=== PATIENT | female | born 1945 | race Caucasian/White ===

== ENCOUNTER 2017-07-12 21:09 | Emergency (ER) | payer OTHER, BC ==
--- OUTSIDE RECORDS SUMMARY | 2017-07-12 21:12 | XMS REPORT | Clinical Summary ---
:[address] [facility] Address [address] [place] [address] Phone Care Team Providers Name Role Phone Unavailable Primary Care Provider Unavailable Allergies Active Allergy Reactions Severity Noted Date Comments Butorphanol Tartrate Anaphylaxis High 06/09/2013 Gabapentin Other (See Comments) 01/03/2015 disorientation Nabumetone Nausea Only 01/03/2015 Moxifloxacin Nausea Only Low 06/10/2013 Tolterodine Nausea Only Low 06/10/2013 Doxycycline Hyclate Other (See Comments) Low 06/10/2013 Abdominal pain Erythromycin Nausea Only Low 06/10/2013 Levofloxacin Nausea Only Low 06/10/2013 Glycopyrrolate Nausea Only Low 06/10/2013 Current Medications Prescription Sig. Disp. Refills Start Date End Date Status esomeprazole (NEXIUM) 40 Take 40 mg by Active MG capsule mouth daily. sucralfate (CARAFATE) 1 g Take 1 g by Active tablet mouth as needed . HYDROcodone-acetaminophen Take 1 tablet Active (NORCO 5-325) 5-325 mg by mouth per tablet every 6 (six) hours as needed. hydrochlorothiazide Take 25 mg by Active (HYDRODIURIL) 25 MG mouth daily. tablet nitroglycerin (NITROSTAT) Place 0.4 mg Active 0.4 MG SL tablet under the tongue every 5 (five) minutes as needed. fluticasone (FLONASE) 50 1 spray by Active mcg/actuation nasal spray Nasal route daily. cetirizine (ZYRTEC) 10 MG Take 10 mg by Active tablet mouth daily. atenolol (TENORMIN) 50 MG Take 25 mg by Active tablet mouth daily. clidinium-chlordiazepoxid Take 1 Active e (LIBRAX) 5-2.5 mg per capsule by capsule mouth 2 (two) times daily. megestrol (MEGACE) 400 Take 10 mLs 240 mL 0 12/08/2016 12/08/2017 Active mg/10 mL (10 mL) (400 mg suspension total) by mouth 2 (two) times daily. senna (SENOKOT) 8.6 mg Take 1 tablet 0 12/08/2016 12/08/2017 Active tablet (8.6 mg total) by mouth every night as needed for Constipation. morphine (MS CONTIN) 30 Take 1 tablet 60 tablet 0 12/09/2016 01/08/2017 MG 12 hr tablet (30 mg total) by mouth 2 (two) times daily for 30 days. Max Daily Amount: 60 mg oxyCODONE-acetaminophen Take 1 tablet 30 tablet 0 12/09/2016 12/19/2016 (PERCOCET) 10-325 mg per by mouth tablet every 4 (four) hours as needed for up to 10 days. Max Daily Amount: 6 tablets Active Problems Problem Noted Date Fracture of lumbar spine ([facility]) 11/29/2016 Protein-calorie malnutrition, severe ([facility]) 11/29/2016 Acute low back pain 11/29/2016 Physical deconditioning 11/29/2016 Chest pain 11/29/2016 Hypertension Overview: bp controlled with medication x 3 yrs Encounters Date Type Specialty Care Team Description 03/14/2017 Outside Orders Poli Pate Loss of weight MD Annette (Primary Dx);Abdominal pain, epigastric 12/06/2016 Procedure Pass 12/06/2016 Surgery Virtual, Surgeon PROCEDURE DONE OUTSIDE OR 12/05/2016 Anesthesia Event Mayi Baptiste MD 11/30/2016 Orders Only General Internal Medicine 11/29/2016 - Hospital Encounter General Internal RichardRinku Closed fracture of 12/09/2016 Medicine MD Kylie lumbar vertebra, Jo, unspecified MD Heike fracture [place], morphology, MD Brown unspecified lumbar Dayna Steward MD vertebral level, initial encounter ([facility]);Essential hypertension;Chroni c bilateral low back pain with right-sided sciatica;Chest pain, unspecified type after 07/11/2016 Social History Tobacco Use Types Packs/Day Years Used Date Former Smoker Alcohol Use Drinks/Week oz/Week Comments No Sex Assigned at Date Recorded Not on file Last Filed Vital Signs Vital Sign Reading Time Taken Blood Pressure 130/69 12/09/2016 11:08 AM CDT Pulse 84 12/09/2016 11:08 AM CDT Temperature 37.1 C (98.7 F) 12/09/2016 11:08 AM CDT Respiratory Rate 18 12/09/2016 11:08 AM CDT Oxygen Saturation 96% 12/09/2016 11:08 AM CDT Inhaled Oxygen Concentration - - Weight 57.2 kg (126 lb) 12/03/2016 9:00 AM CDT Height 152.4 cm (5') 11/29/2016 4:00 AM CDT Body Mass Index 24.61 12/03/2016 9:00 AM CDT Plan of Treatment Not on file Procedures Procedure Name Priority Date/Time Associated Diagnosis Comments PROCEDURE DONE OUTSIDE 12/06/2016 3:00 PM Compression fracture of OR CDT L4 lumbar vertebra, closed, initial encounter ([facility]) Special Needs (DR DOMINIQUE)(DOUG) after 07/11/2016 Results PERIPHERAL VASCULAR REPORT - SCAN (01/01/2017 12:00 PM)ECHOCARDIOGRAM REPORT - SCAN (01/01/2017 12:00 PM)RHYTHM STRIP - SCAN (12/10/2016 12:50 PM)BUN and Creatinine (12/08/2016 4:54 AM) Component Value Ref Range BUN 14 7 - 21 mg/dL Creatinine 0.58 0.57 - 1.25 mg/dL EGFR 102Comment: ESTIMATED GFR IS NOT ACCURATE mL/min/1.73 sq m CREATININE CLEARANCE IN PREDICTING GLOMERULAR FILTRATION RATE. ESTIMATED GFR IS NOT APPLICABLE FOR DIALYSIS PATIENTS. Specimen Performing Laboratory Blood [facility] [address] [address] CBC (Hemogram only) (12/08/2016 4:54 AM) Component Value Ref Range WBC 9.9 3.5 - 10.5 K/L RBC 3.95 3.93 - 5.22 M/L Hemoglobin 11.9 11.2 - 15.7 GM/DL Hematocrit 36.8 34.1 - 44.9 % MCV 93.2 79.4 - 94.8 fL MCH 30.1 25.6 - 32.2 pg MCHC 32.3 32.2 - 35.5 GM/DL RDW 13.5 11.7 - 14.4 % Platelets 282 150 - 450 K/CU MM MPV 10.4 9.4 - 12.3 fL nRBC 0 0 - 0 /100 WBC Specimen Performing Laboratory Blood [facility] [address] [address] IR kyphoplasty lumbar (12/06/2016 6:30 PM) Specimen Performing Laboratory [facility] Narrative FINAL REPORT HISTORY: L4 and L5 wedge vertebral compression fractures and severe lower back pain despite conservative therapy. PROCEDURE: Following informed written consent, general anesthesia was performed by the anesthesiology service and the patient was placed in a prone position on the angiographic table. The lower back was prepped and draped in the usual sterile manner. 2% lidocaine was given locally for anesthesia. Using a bilateral L4 and L5 approach and fluoroscopic guidance, the access needles were placed into the L4 and L5 vertebral bodies. Tracts were drilled through each cannula into the L4 and L5 vertebral bodies. Vertebral augmentation balloons were placed through the access cannulas and inflated bilaterally. The balloons were deflated, removed and a total of four cc of methyl methacrylate was infused into the L4 vertebral body under constant fluoroscopic visualization. A total of 6 mL of methyl methacrylate was infused into the L5 vertebral body under constant fluoroscopic guidance. The cannulas were then removed and the access sites closed with Steri-Strips. Sterile bandages were applied and the patient was transferred from the department in stable condition. There were no immediate complications. FINDINGS: Images obtained during the procedure show the access needles, cannulas and balloons in expected positions within the L4 and L5 vertebral bodies. Following methacrylate infusion, adequate distribution is seen within the L4 and L5 vertebral bodies without extravasation. IMPRESSION: 1. Technically successful L4 and L5 percutaneous vertebral augmentation. No immediate complications. Total flouroscopy time: 9.7 mins Estimated dose reported as (Ka,r): 619 mGy Signed: Driss Dominique MD Report Verified Date/Time:12/11/2016 08:42:31 Reading Location: [place] [address] Angio Body Reading Room Procedure Note Interface, External Ris In - 12/11/2016 8:44 AM CDT FINAL REPORT HISTORY: L4 and L5 wedge vertebral compression fractures and severe lower back pain despite conservative therapy. PROCEDURE: Following informed written consent, general anesthesia was performed by the anesthesiology service and the patient was placed in a prone position on the angiographic table. The lower back was prepped and draped in the usual sterile manner. 2% lidocaine was given locally for anesthesia. Using a bilateral L4 and L5 approach and fluoroscopic guidance, the access needles were placed into the L4 and L5 vertebral bodies. Tracts were drilled through each cannula into the L4 and L5 vertebral bodies. Vertebral augmentation balloons were placed through the access cannulas and inflated bilaterally. The balloons were deflated, removed and a total of four cc of methyl methacrylate was infused into the L4 vertebral body under constant fluoroscopic visualization. A total of 6 mL of methyl methacrylate was infused into the L5 vertebral body under constant fluoroscopic guidance. The cannulas were then removed and the access sites closed with Steri-Strips. Sterile bandages were applied and the patient was transferred from the department in stable condition. There were no immediate complications. FINDINGS: Images obtained during the procedure show the access needles, cannulas and balloons in expected positions within the L4 and L5 vertebral bodies. Following methacrylate infusion, adequate distribution is seen within the L4 and L5 vertebral bodies without extravasation. IMPRESSION: 1. Technically successful L4 and L5 percutaneous vertebral augmentation. No immediate complications. Total flouroscopy time: 9.7 mins Estimated dose reported as (Ka,r): 619 mGy Signed: Driss Dominique MD Report Verified Date/Time: 12/11/2016 08:42:31 Reading Location: [place] [address] Angio Body Reading Room with platelet count + automated diff (12/06/2016 5:37 AM)Only the most recent of4 resultswithin the time period is included. Component Value Ref Range WBC 9.5 3.5 - 10.5 K/L RBC 4.03 3.93 - 5.22 M/L Hemoglobin 12.3 11.2 - 15.7 GM/DL Hematocrit 37.0 34.1 - 44.9 % MCV 91.8 79.4 - 94.8 fL MCH 30.5 25.6 - 32.2 pg MCHC 33.2 32.2 - 35.5 GM/DL RDW 13.6 11.7 - 14.4 % Platelets 297 150 - 450 K/CU MM MPV 10.2 9.4 - 12.3 fL nRBC 0 0 - 0 /100 WBC % Neutros 76 % % Lymphs 15 % % Monos 7 % % Eos 1 % % Baso 1 % # Neutros 7.15 (H) 1.56 - 6.13 K/L # Lymphs 1.45 1.18 - 3.74 K/L # Monos 0.70 (H) 0.24 - 0.36 K/L # Eos 0.05 0.04 - 0.36 K/L # Baso 0.05 0.01 - 0.08 K/L Immature Granulocytes-Relative 1 0 - 1 % Specimen Performing Laboratory Blood - Arm, [address] [address] aPTT (12/06/2016 5:37 AM) Component Value Ref Range PTT 26.2 22.5 - 36.0 seconds Specimen Performing Laboratory Blood - Arm, [address] [address] Prothrombin time/INR (12/06/2016 5:37 AM)Only the most recent of2 resultswithin the time period is included. Component Value Ref Range Protime 13.4 11.7 - 14.7 seconds INR 1.0 <=5.9 Specimen Performing Laboratory Blood - Arm, [address] [address] Narrative RECOMMENDED COUMADIN/WARFARIN INR THERAPY RANGES STANDARD DOSE: 2.0 - 3.0 Includes: PROPHYLAXIS for venous thrombosis, systemic embolization; TREATMENT for venous thrombosis and/or pulmonary embolus. HIGH RISK: Target INR is 2.5-3.5 for patients with mechanical heart valves. CBC with platelet count + automated diff (12/06/2016 5:37 AM)Only the most recent of4 resultswithin the time period is included. Specimen Performing Laboratory Blood Narrative The following orders were created for panel order CBC with platelet count + automated diff. Procedure Abnormality Status --------- ------ CBC with platelet count ...[[id number]]AbnormalFinal result Please view results for these tests on the individual orders. Basic Metabolic Panel (12/06/2016 5:37 AM)Only the most recent of4 resultswithin the time period is included. Component Value Ref Range Sodium 136 136 - 145 meq/L Potassium 4.0 3.5 - 5.1 meq/L Chloride 103 98 - 107 meq/L CO2 27 22 - 29 meq/L BUN 15 7 - 21 mg/dL Creatinine 0.60 0.57 - 1.25 mg/dL Glucose 96 70 - 105 mg/dL Calcium 9.7 8.4 - 10.2 mg/dL EGFR 98Comment: ESTIMATED GFR IS NOT ACCURATE mL/min/1.73 sq m CREATININE CLEARANCE IN PREDICTING GLOMERULAR FILTRATION RATE. ESTIMATED GFR IS NOT APPLICABLE FOR DIALYSIS PATIENTS. Specimen Performing Laboratory Blood - Arm, Left [facility] [address] [address] NM myocardial perfusion SPECT,pharm(LEXISCAN) (12/04/2016 1:22 PM) Specimen Performing Laboratory [place] Narrative FINAL REPORT PROCEDURE:Rest/Stress MYOCARDIAL PERFUSION SPECT with regadenoson\XA9\ CPT CODE:52753 INDICATION:Chest pain, acute, nonspecific, low probability CAD HISTORY:Cardiac risk factors: Hypertension. Other cardiovascular history: No reported CAD. Recent cardiac symptoms: Chest pain. Current cardiovascular-related medications: Norvasc, atenolol. PROTOCOL:10.8 mCi of Tc-99m sestamibi was injected iv at rest, and SPECT (tomographic) images were obtained. Also, 30.7 mCi of Tc-99m sestamibi was injected iv at expected peak pharmacologic effect, and gated SPECT images were obtained. PRELIMINARY STRESS TEST DATA FROM NONINVASIVE CARDIOLOGY: Pharmacologic stress was by 10-second iv infusion of 0.4 mg of regadenoson. Radiotracer was injected 30 seconds after start of stress. Heart rate was 76 beats/min at rest and 107 beats/min (72 % of MPHR) at tracer injection. BP was 141/71 mmHg at rest and 145/47 mmHg at tracer injection. Stress was stopped for predetermined endpoint. The patient experienced dyspnea; treatment was not required. Preliminary ECG evaluation revealed sinus rhythm at rest and no ischemic changes with stress. (Final ECG interpretation and other stress and monitoring data are reported separately by Cardiology.) IMAGING FINDINGS:Study quality is good. Images obtained after rest and stress injections show normal LV activity. LV and RV volumes appear normal. Gated images obtained at rest after stress show normal LV wall motion and thickening. QGS LVEF is >70% at stress and rest. IMPRESSION: 1. Normal study.2. Appropriate pharmacologic stress. 3. Normal myocardial perfusion.4. Normal resting LV function.5. Normal extracardiac tracer distribution.6. No previous [facility] study for comparison. NONINVASIVE RISK STRATIFICATION: The above findings are considered low risk (<1% annual mortality rate) based on the following criterion: - Normal or small myocardial perfusion defect at rest or with stress ([facility]. 2012;59(9):857-81.) Signed: Alvaro Lockhart MD Report Verified Date/Time:12/04/2016 14:11:13 Reading Location: [address] Reading Room Procedure Note Interface, External Ris In - 12/09/2016 6:48 PM CDT FINAL REPORT PROCEDURE: Rest/Stress MYOCARDIAL PERFUSION SPECT with regadenoson\XA9\ CPT CODE: 23675 INDICATION: Chest pain, acute, nonspecific, low probability CAD HISTORY: Cardiac risk factors: Hypertension. Other cardiovascular history: No reported CAD. Recent cardiac symptoms: Chest pain. Current cardiovascular-related medications: Norvasc, atenolol. PROTOCOL: 10.8 mCi of Tc-99m sestamibi was injected iv at rest, and SPECT (tomographic) images were obtained. Also, 30.7 mCi of Tc-99m sestamibi was injected iv at expected peak pharmacologic effect, and gated SPECT images were obtained. PRELIMINARY STRESS TEST DATA FROM NONINVASIVE CARDIOLOGY: Pharmacologic stress was by 10-second iv infusion of 0.4 mg of regadenoson. Radiotracer was injected 30 seconds after start of stress. Heart rate was 76 beats/min at rest and 107 beats/min (72 % of MPHR) at tracer injection. BP was 141/71 mmHg at rest and 145/47 mmHg at tracer injection. Stress was stopped for predetermined endpoint. The patient experienced dyspnea; treatment was not required. Preliminary ECG evaluation revealed sinus rhythm at rest and no ischemic changes with stress. (Final ECG interpretation and other stress and monitoring data are reported separately by Cardiology.) IMAGING FINDINGS: Study quality is good. Images obtained after rest and stress injections show normal LV activity. LV and RV volumes appear normal. Gated images obtained at rest after stress show normal LV wall motion and thickening. QGS LVEF is >70% at stress and rest. IMPRESSION: 1. Normal study. 2. Appropriate pharmacologic stress. 3. Normal myocardial perfusion. 4. Normal resting LV function. 5. Normal extracardiac tracer distribution. 6. No previous [facility] study for comparison. NONINVASIVE RISK STRATIFICATION: The above findings are considered low risk (<1% annual mortality rate) based on the following criterion: - Normal or small myocardial perfusion defect at rest or with stress ([facility]. 2012;59(9):857-81.) Signed: Alvaro Lockhart MD Report Verified Date/Time: 12/04/2016 14:11:13 Reading Location: [address] Reading Room Treadmill tolerance(Non-Nuclear Treadmill) (12/04/2016 10:29 AM) Specimen Performing Laboratory [employer] Narrative Protocol Name Lexiscan Time In Exercise Phase 00:01:00 Max. Systolic BP 145 mmHg Max Diastolic BP 47 mmHg Max Heart Rate 107 BPM Max Predicted Heart Rate 147 BPM Reason For Termination Predetermined end point Reason for Test Chest Pain Target HR Formula (220 - Age)*100% Arrhythmias none Resting ECG Normal sinus rhythm ST Changes No Significant Changes Overall Impression Indeterminate due to pharmacological stress Chest Pain none HR Response To Exercise BP Response To Exercise NORVASC ATENOLOL Confirmed by fellow Tono Alonzo ([id number]) on 12/04/2016 10:51:07 AM Confirmed by Kriill RITTER MICHAEL ([id number]) on 12/05/2016 7:42:50 AM Procedure Note Interface, External Ris In - 12/05/2016 7:42 AM CDT Protocol Name Lexiscan Time In Exercise Phase 00:01:00 Max. Systolic BP 145 mmHg Max Diastolic BP 47 mmHg Max Heart Rate 107 BPM Max Predicted Heart Rate 147 BPM Reason For Termination Predetermined end point Reason for Test Chest Pain Target HR Formula (220 - Age)*100% Arrhythmias none Resting ECG Normal sinus rhythm ST Changes No Significant Changes Overall Impression Indeterminate due to pharmacological stress Chest Pain none HR Response To Exercise BP Response To Exercise NORVASC ATENOLOL Confirmed by fellow Tono Alonzo ([id number]) on 12/04/2016 10:51:07 AM Confirmed by Kirill RITTER MICHAEL ([id number]) on 12/05/2016 7:42:50 AM 2D Echo W/Doppler(CW/PW/Color) (12/04/2016 8:08 AM) Component Value Ref Range Ejection Fraction Specimen Performing Laboratory [facility] [id number] CPACS Narrative Transthoracic Echocardiography Report (TTE) Demographics Patient Name Truong AMBRIZ of Study 12/04/2016 JAIMIE [id number] GenderFemale Visit Number [id number] Race Unknown [id number] Number [id number] Number Date of Birth1945 Referring Physician Heike Osorio 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 InterpretingSttitus Becerra MD Physician Procedure Type of Study TTE procedure:2DECHO W DOPPLER(CW/PW/COLOR) (Routine) Indications:Acute Chest Pain/ Suspected CAD. Clinical History Chest Pain Hypertension Sleep Apnea HGB 12.3 HCT 35.9 % Height: 60 inches Weight: 57.15 kg (126 lbs) BSA: 1.53 m^2 BMI: 24.61 kg/m^2 HR: 86 bpm BP: 147/76 mmHg Summary Estimated LVEF by qualitative assessment is normal (60%) The right ventricular chamber size and systolic function are within normal limits All of the LV segments contract normally Grade 1 diastolic dysfunction (impaired relaxation and low-normal LA pressure). Previous Study No prior exam available for comparison. Signature Findings Rhythm/BPRegular sinus rhythm during the exam. Left Ventricle The left ventricle is chamber size (by vol index) is normal (female - LVED vol - 29-61ml/m2). The LV endocardium is well visualized. Estimated LVEF by qualitative assessment is normal (60%) . All of the LV segments contract normally . Grade 1 diastolic dysfunction (impaired relaxation and low-normal LA pressure). Left AtriumLA size is normal . LA is incompletely visualized, size based on linear measurement. Right VentricleThe right ventricular chamber size and systolic function are within normal limits. Right Atrium RA size is normal. RA cavity size is normal . Aortic Valve Normal AoV structure and function. No evidence of aortic regurgitation. No evidence of aortic stenosis. Mitral Valve Normal MV structure and function. No evidence of mitral stenosis. Trace mitral regurgitation. Tricuspid ValveTV structure is normal. A trace of tricuspid regurgitation. Pulmonic Valve PV is not well visualized; function appears normal by Doppler visualized. AortaAortic root size (SInus of Valsalva diameter) is normal . PericardiumNo pericardial effusion is visualized. IVC/SVC/PA/PV/PleuralThe inferior vena cava is adequately visualized. The inferior vena cava size is normal . The estimated RA pressure by IVC dynamics 0-5mmHg . Chambers/Structures Left Atrium LA Dimension: 2.15 cmLA Area: 13.98 cm^2 LA Volume: 29.33 ml LA Vol. Index: 19 ml/m^2 Left Ventricle LVIDd: 4.35 cmLVEDV 2D :85.29 ml LVIDs: 2.77 cmLVESV 2D :28.88 ml LV Septum Diastolic: 0.76 cm LV PW Diastolic: 0.73 cm LV FS: 36.3 % LV ESV (Cubed):21.25 cc LVOT Diameter: 1.86 cm LV ESV (Teich):28.78 ml LV SV (Teich):56.58 ml LV SI (Teich):36.98 ml/m^2 LVEF 2D Teich: 66.1 % Aorta Ao Root S of Carolann.: 2.67 cm Shunts QS:57.55 ml Doppler/Quantitative Measurements Mitral Valve MV Peak E-Wave: 0.85 m/s MV Peak A-Wave: 0.65 m/s E/A Ratio: 1.32 Peak Gradient: 2.92 mmHg Deceleration Time: 207.6 msec LVOT Peak Velocity: 1.11 m/s Peak Gradient: 4.91 mmHg Mean Velocity: 0.76 m/s Mean Gradient: 2.61 mmHg LVOT Diameter: 1.86 cmLVOT VTI: 21.18 cm LVOT Area: 2.72 cm^2LVOT SV:57.52 ml LVOT CO: 4.95 l/min LVOT CI: 3.24 l/min/m^2 Procedure Note Interface, External Ris In - 12/04/2016 7:36 PM CDT Transthoracic Echocardiography Report (TTE) Demographics Patient Name ARIANNE AMBRIZ Date of Study 12/04/2016 JAIMIE Gender Female Visit Number [id number] Race Unknown Room Number [id number] Number Date of 1945 Referring Physician 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 Interpreting Rebecca Becerra MD Physician Procedure Type of Study TTE procedure:2DECHO W DOPPLER(CW/PW/COLOR) (Routine) Indications:Acute Chest Pain/ Suspected CAD. Clinical History Chest Pain Hypertension Sleep Apnea HGB 12.3 HCT 35.9 % Height: 60 inches Weight: 57.15 kg (126 lbs) BSA: 1.53 m^2 BMI: 24.61 kg/m^2 HR: 86 bpm BP: 147/76 mmHg Summary Estimated LVEF by qualitative assessment is normal (60%) The right ventricular chamber size and systolic function are within normal limits All of the LV segments contract normally Grade 1 diastolic dysfunction (impaired relaxation and low-normal LA pressure). Previous Study No prior exam available for comparison. Signature Findings Rhythm/BP Regular sinus rhythm during the exam. Left Ventricle The left ventricle is chamber size (by vol index) is normal (female - LVED vol - 29-61ml/m2). The LV endocardium is well visualized. Estimated LVEF by qualitative assessment is normal (60%) . All of the LV segments contract normally . Grade 1 diastolic dysfunction (impaired relaxation and low-normal LA pressure). Left Atrium LA size is normal . LA is incompletely visualized, size based on linear measurement. Right Ventricle The right ventricular chamber size and systolic function are within normal limits. Right Atrium RA size is normal. RA cavity size is normal . Aortic Valve Normal AoV structure and function. No evidence of aortic regurgitation. No evidence of aortic stenosis. Mitral Valve Normal MV structure and function. No evidence of mitral stenosis. Trace mitral regurgitation. Tricuspid Valve TV structure is normal. A trace of tricuspid regurgitation. Pulmonic Valve PV is not well visualized; function appears normal by Doppler visualized. Aorta Aortic root size (SInus of Valsalva diameter) is normal . Pericardium No pericardial effusion is visualized. IVC/SVC/PA/PV/Pleural The inferior vena cava is adequately visualized. The inferior vena cava size is normal . The estimated RA pressure by IVC dynamics 0-5mmHg . Chambers/Structures Left Atrium LA Dimension: 2.15 cm LA Area: 13.98 cm^2 LA Volume: 29.33 ml LA Vol. Index: 19 ml/m^2 Left Ventricle LVIDd: 4.35 cm LVEDV 2D:85.29 ml LVIDs: 2.77 cm LVESV 2D:28.88 ml LV Septum Diastolic: 0.76 cm LV PW Diastolic: 0.73 cm LV FS: 36.3 % LV ESV (Cubed):21.25 cc LVOT Diameter: 1.86 cm LV ESV (Teich):28.78 ml LV SV (Teich):56.58 ml LV SI (Teich):36.98 ml/m^2 LVEF 2D Teich: 66.1 % Aorta Ao Root S of Carolann.: 2.67 cm Shunts QS:57.55 ml Doppler/Quantitative Measurements Mitral Valve MV Peak E-Wave: 0.85 m/s MV Peak A-Wave: 0.65 m/s E/A Ratio: 1.32 Peak Gradient: 2.92 mmHg Deceleration Time: 207.6 msec LVOT Peak Velocity: 1.11 m/s Peak Gradient: 4.91 mmHg Mean Velocity: 0.76 m/s Mean Gradient: 2.61 mmHg LVOT Diameter: 1.86 cm LVOT VTI: 21.18 cm LVOT Area: 2.72 cm^2 LVOT SV:57.52 ml LVOT CO: 4.95 l/min LVOT CI: 3.24 l/min/m^2 XR Spine, Scoliosis Study (12/03/2016 4:01 PM) Specimen Performing Laboratory [facility] Narrative FINAL REPORT TECHNIQUE: Frontal and lateral erect views of the spine dated 12/03/2016 HISTORY: Scoliosis, right lower extremity weakness COMPARISON: None FINDINGS: There is a 25 degree scoliosis of the thoracolumbar spine with the apex at approximately T12-L1. There is a rotary component to the scoliosis in the lumbar spine. The cervical spine is visualized from the skull base to the top of C6. The cervicothoracic junction is obscured by the patient's shoulders. There are 12 rib bearing and five nonrib-bearing vertebral bodies. There appear to be multiple compression deformities in the mid and lower thoracic spine, this is difficult to evaluate on the lateral view given degree of osteopenia. Visualized lungs are clear. Normal bowel gas pattern is visualized. IMPRESSION: 25 degree scoliosis of the thoracolumbar spine with a rotary component in the lumbar spine. Signed: Kamaljit Wu MD Report Verified Date/Time:12/03/2016 16:17:14 Reading Location: [facility] Radiology Reading Room Procedure Note Interface, External Ris In - 12/03/2016 6:34 PM CDT FINAL REPORT TECHNIQUE: Frontal and lateral erect views of the spine dated 12/03/2016 HISTORY: Scoliosis, right lower extremity weakness COMPARISON: None FINDINGS: There is a 25 degree scoliosis of the thoracolumbar spine with the apex at approximately T12-L1. There is a rotary component to the scoliosis in the lumbar spine. The cervical spine is visualized from the skull base to the top of C6. The cervicothoracic junction is obscured by the patient's shoulders. There are 12 rib bearing and five nonrib-bearing vertebral bodies. There appear to be multiple compression deformities in the mid and lower thoracic spine, this is difficult to evaluate on the lateral view given degree of osteopenia. Visualized lungs are clear. Normal bowel gas pattern is visualized. IMPRESSION: 25 degree scoliosis of the thoracolumbar spine with a rotary component in the lumbar spine. Signed: Kamaljit Wu MD Report Verified Date/Time: 12/03/2016 16:17:14 Reading Location: [facility] Radiology Reading Room Venous doppler leg, right (12/02/2016 10:59 PM) Component Value Ref Range Ejection Fraction Specimen Performing Laboratory [facility] MKCKESSON CPA Impressions Right Impression 1. There is no deep venous obstruction in the common femoral, profunda femoral, femoral, popliteal, posterior tibial or peroneal veins. 2. There is no superficial venous obstruction in the great saphenous vein. 3. Incidental Finding: There is a nonvascular structure in the distal calf measuring 0.858 cm x 2.62 cm. Conclusions Summary Venous duplex imaging and compression of the right lower extremity was performed. The veins were adequately visualized. The right venous system was patent and compressible with no evidence of thrombus. The venous Doppler waveforms were phasic with respiration. Incidental Finding: There is a nonvascular structure in the right distal calf measuring 0.858 cm x 2.62 cm. Signature Velocities are measured in cm/s ; Diameters are measured in cm Narrative PV LAB - Lower Extremities DVT Study Demographics Patient NameARIANNE AMBRIZ Date of Study12/02/2016 Visit [id number] Female of Birth[birth year]/ Number [facility] [id number] Physician Jo Batch Tank Controller Héctor Marcosterpreting Prosper Fraga Physician, MARCIE Procedure Type of Study: Veins: Lower Extremities DVT Study, VENOUS DOPPLER LEG, RIGHT. Indications for Study:Right Leg Swelling and Right Leg Pain. Patient Status:Routine. Study Location:Portable. Technical Quality:Adequate visualization. Risk Factors History of Disease + +----+ + !Diagnosis!Date!Comments ! + +----+ + !History/Risk Factors:!!HTN, Lumbar Fracture , Recent Fall (09/2016) ! + +----+ + Procedure Note Interface, External Ris In - 12/03/2016 4:46 AM CDT [facility] LAB - Lower Extremities DVT Study Demographics Patient Name ARIANNE AMBRIZ Date of Study 12/02/2016 Age 71 Visit Number [id number] Gender Female Date of 1945 Number Referring Heike Room Number [id number] Physician Jo Batch Tank Controller Héctor Mcpherson Interpreting Prosper Fraga, Physician , MARCIE Procedure Type of Study: Veins: Lower Extremities DVT Study, VENOUS DOPPLER LEG, RIGHT. Indications for Study:Right Leg Swelling and Right Leg Pain. Patient Status:Routine. Study Location:Portable. Technical Quality:Adequate visualization. Risk Factors History of Disease + +----+ + !Diagnosis !Date!Comments ! + +----+ + !History/Risk Factors:! !HTN, Lumbar Fracture , Recent Fall (09/2016) ! + +----+ + Impressions Right Impression 1. There is no deep venous obstruction in the common femoral, profunda femoral, femoral, popliteal, posterior tibial or peroneal veins. 2. There is no superficial venous obstruction in the great saphenous vein. 3. Incidental Finding: There is a nonvascular structure in the distal calf measuring 0.858 cm x 2.62 cm. Conclusions Summary Venous duplex imaging and compression of the right lower extremity was performed. The veins were adequately visualized. The right venous system was patent and compressible with no evidence of thrombus. The venous Doppler waveforms were phasic with respiration. Incidental Finding: There is a nonvascular structure in the right distal calf measuring 0.858 cm x 2.62 cm. Signature Velocities are measured in cm/s ; Diameters are measured in cm MR brain without & with IV contrast (12/02/2016 7:04 PM) Specimen Performing Laboratory RIS Narrative FINAL REPORT MRI brain with and without contrast Comparison: None Reason for exam: Neoplasm, [employer] primary, calcified meningioma Discussion: Multiplanar MR imaging of the brain was provided [id number] IV gadolinium administration using T1, T2, FLAIR, T2 star, diffusion weighted sequences, and ADC map imaging. There are no intracranial hematomas, definitive masses, hydrocephalus, shift, or extra-axial collections. There are no areas of abnormal enhancement or abnormal diffusion restriction. There is suspected bilateral irregular hyperostosis from talus as well as focal ossification along the right-sided anterior frontal region falx. There is moderate symmetric medial temporal volume loss. Flow-voids are seen in the basilar and internal carotid arteries as well as in the large posterior dural sinuses. The pineal, sella, and craniocervical junction regions are unremarkable. The visualized orbital contents, skullbase and surrounding soft tissues are unremarkable. There is right-sided sphenoid sinus mucosal thickening. Impressions: Chronic cerebral findings as discussed with symmetric medial temporal volume loss. No specific evidence of acute abnormality. No specific evidence for meningioma. Consider follow-up pre and postcontrast head CT to better evaluate for extra-axial calcification. Signed: Taylor Rodriguez MD Report Verified Date/Time:12/03/2016 09:02:27 Reading Location: [address] Neuro Reading Room Procedure Note Interface, External Ris In - 12/03/2016 10:13 AM CDT FINAL REPORT MRI brain with and without contrast Comparison: None Reason for exam: Neoplasm, [employer] primary, calcified meningioma Discussion: Multiplanar MR imaging of the brain was provided [id number] IV gadolinium administration using T1, T2, FLAIR, T2 star, diffusion weighted sequences, and ADC map imaging. There are no intracranial hematomas, definitive masses, hydrocephalus, shift, or extra-axial collections. There are no areas of abnormal enhancement or abnormal diffusion restriction. There is suspected bilateral irregular hyperostosis from talus as well as focal ossification along the right-sided anterior frontal region falx. There is moderate symmetric medial temporal volume loss. Flow-voids are seen in the basilar and internal carotid arteries as well as in the large posterior dural sinuses. The pineal, sella, and craniocervical junction regions are unremarkable. The visualized orbital contents, skullbase and surrounding soft tissues are unremarkable. There is right-sided sphenoid sinus mucosal thickening. Impressions: Chronic cerebral findings as discussed with symmetric medial temporal volume loss. No specific evidence of acute abnormality. No specific evidence for meningioma. Consider follow-up pre and postcontrast head CT to better evaluate for extra-axial calcification. Signed: Taylor Rodriguez MD Report Verified Date/Time: 12/03/2016 09:02:27 Reading Location: [address] Neuro Reading Room head without IV contrast (12/02/2016 7:04 PM) Specimen Performing Laboratory [place] Narrative FINAL REPORT MRA head Comparison: None Reason for exam: Cerebral aneurysm, subarachnoid hemorrhage, cerebral vasospasm evaluation, history of aneurysm Discussion: 3-D [id number]-[id number] MRA of the head was provided with maximal intensity projection 3-D reconstructions of the intracranial arterial vasculatures. There is normal appearing flow intracranial internal carotid arteries and in the carotid terminus branches both sides. Normal vertebrobasilar and proximal posterior cerebral artery flow. No findings suspicious for vasospasm. There is a left-sided intracranial carotid aneurysm at the carotid cave, extending posteriorly from the distal carotid siphon genu with maximal base to apex dimension of approximately 4 mm. No other visible aneurysm. Note that than in setting of recent subarachnoid hemorrhage, MRI is not as sensitive evaluation for intracranial aneurysm. If indicated, consider conventional angiography. Impressions: 1. Grossly normal flow intracranial proximal arterial vasculature. 2. Left intracranial carotid aneurysm as discussed. Signed: Taylor Rodriguez MD Report Verified Date/Time:12/03/2016 09:05:19 Reading Location: [address] Neuro Reading Room Procedure Note Interface, External Ris In - 12/03/2016 9:07 AM CDT FINAL REPORT MRA head Comparison: None Reason for exam: Cerebral aneurysm, subarachnoid hemorrhage, cerebral vasospasm evaluation, history of aneurysm Discussion: 3-D jqmc-nm-ifjutn MRA of the head was provided with maximal intensity projection 3-D reconstructions of the intracranial arterial vasculatures. There is normal appearing flow intracranial internal carotid arteries and in the carotid terminus branches both sides. Normal vertebrobasilar and proximal posterior cerebral artery flow. No findings suspicious for vasospasm. There is a left-sided intracranial carotid aneurysm at the carotid cave, extending posteriorly from the distal carotid siphon genu with maximal base to apex dimension of approximately 4 mm. No other visible aneurysm. Note that than in setting of recent subarachnoid hemorrhage, MRI is not as sensitive evaluation for intracranial aneurysm. If indicated, consider conventional angiography. Impressions: 1. Grossly normal flow intracranial proximal arterial vasculature. 2. Left intracranial carotid aneurysm as discussed. Signed: Taylor Rodriguez MD Report Verified Date/Time: 12/03/2016 09:05:19 Reading Location: [facility] B1 C013V Neuro Reading Room Magnesium (12/01/2016 5:04 AM)Only the most recent of3 resultswithin the time period is included. Component Value Ref Range Magnesium 1.8 1.6 - 2.6 mg/dL Specimen Performing Laboratory Blood [address] [address] Troponin I (12/01/2016 12:36 AM)Only the most recent of3 resultswithin the time period is included. Component Value Ref Range Troponin I <0.01 0.00 - 0.03 ng/mL Specimen Performing Laboratory Blood [address] [address] Narrative Effective 02/15/2014: Reference Range Change New: 0.00-0.03 Previous 0.00-0.15 Troponin I (TnI) levels must be interpreted in the context of the presenting symptoms and the clinical findings. Elevated TnI levels indicate myocardial damage, but are not specific for ischemic heart disease. Elevated TnI levels are seen in patients with other cardiac conditions (including myocarditis and congestive heart failure), and slight TnI elevations occur in patients with other conditions, including sepsis, renal failure, acidosis, acute neurological disease, and persistent tachyarrhythmia. ECG 12 lead (11/30/2016 9:15 PM)Only the most recent of3 resultswithin the time period is included. Specimen Performing Laboratory [facility] Narrative Ventricular Rate 69 BPM Atrial Rate 69 BPM P-R Interval 158 ms QRS Duration 86 ms Q-T Interval 392 ms QTC Calculation(Bazett) 420 ms P Weir 51 degrees R Weir 31 degrees T Weir 29 degrees Normal sinus rhythm Normal ECG When compared with ECG of 30-NOV-2016 20:44, No significant change was found Confirmed by MD Plata Roberto ([id number]) on 11/30/2016 10:39:05 PM Procedure Note Interface, External Ris In - 11/30/2016 10:39 PM CDT Ventricular Rate 69 BPM Atrial Rate 69 BPM P-R Interval 158 ms QRS Duration 86 ms Q-T Interval 392 ms QTC Calculation(Bazett) 420 ms P Weir 51 degrees R Weir 31 degrees T Weir 29 degrees Normal sinus rhythm Normal ECG When compared with ECG of 30-NOV-2016 20:44, No significant change was found Confirmed by MD Plata Roberto ([id number]) on 11/30/2016 10:39:[address] spine lumbar without IV contrast (11/30/2016 10:12 AM) Specimen Performing Laboratory [facility] Narrative FINAL REPORT CT lumbar spine INDICATION: Spondylolisthesis COMPARISON: No priors TECHNIQUE: Multiple axial CT images of the lumbar spine were obtained without contrast. Sagittal and coronal 2D reconstructions were provided as well. This exam was performed according to our departmental dose optimization program which includes automated exposure control, adjustment of the mA and/or kV according to patient's size and/or use of iterative reconstructive technique. FINDINGS: There is grade 1 anterolisthesis of L3 on L4, and minimal retrolisthesis at L5-S1. There is also levoscoliosis, apex at L3. Mild left lateral subluxation is present at L3 on L4 and L4 on L5. Compression deformities are noted at L4, and L5 and there is mild superior endplate retropulsion at L5. Additionally, there are fractures of the left transverse process of L2 and L3. A healing left posterior 11th rib fracture is also noted. At T12-L1, there is no central canal or foraminal narrowing. At L1-L2, no central canal or foraminal narrowing. At L2-L3, there is a mild left eccentric disc bulge, and loss of disc height on the right side with right far lateral osteophyte formation. Minimal central canal narrowing, mild left, aqfs-qy-kfhbzkfj right foraminal narrowing. At L3-L4, there is loss of disc height, associated with a moderate disc bulge, and mild facet arthropathy with infolding of ligamentum flavum. There is moderate narrowing of the central canal, severe right foraminal narrowing, patent left foramen. At L4-L5, there is superior endplate retropulsion of L5, and a moderate to large disc bulge, as well as mild to moderate facet arthropathy with infolding of ligamentum flavum. There is moderate to severe central canal narrowing, mild to moderate left, and severe right foraminal stenosis. At L5-S1, there is a mild disc bulge, and mild bilateral facet arthropathy. No significant central canal narrowing, mild bilateral foraminal stenosis. Visualized retroperitoneal, and paraspinal soft tissues are unremarkable. Note is made of a large amount of fecal content in colon, which could indicate constipation. IMPRESSION: Levoscoliosis. Compression deformities at L4 and L5. Left transverse fractures at L2 and L3 and healing left posterior 11th rib fracture. Superimposed degenerative changes as described. In particular, there is moderate central canal narrowing at L3-L4, moderate to severe central canal narrowing at L4-L5, and severe right-sided foraminal narrowing at both levels. Signed: Jaimie Willard MD Report Verified Date/Time:11/30/2016 10:51:49 Reading Location: [address] Neuro Reading Room Procedure Note Interface, External Ris In - 11/30/2016 10:53 AM CDT FINAL REPORT CT lumbar spine INDICATION: Spondylolisthesis COMPARISON: No priors TECHNIQUE: Multiple axial CT images of the lumbar spine were obtained without contrast. Sagittal and coronal 2D reconstructions were provided as well. This exam was performed according to our departmental dose optimization program which includes automated exposure control, adjustment of the mA and/or kV according to patient's size and/or use of iterative reconstructive technique. FINDINGS: There is grade 1 anterolisthesis of L3 on L4, and minimal retrolisthesis at L5-S1. There is also levoscoliosis, apex at L3. Mild left lateral subluxation is present at L3 on L4 and L4 on L5. Compression deformities are noted at L4, and L5 and there is mild superior endplate retropulsion at L5. Additionally, there are fractures of the left transverse process of L2 and L3. A healing left posterior 11th rib fracture is also noted. At T12-L1, there is no central canal or foraminal narrowing. At L1-L2, no central canal or foraminal narrowing. At L2-L3, there is a mild left eccentric disc bulge, and loss of disc height on the right side with right far lateral osteophyte formation. Minimal central canal narrowing, mild left, hjuy-wu-[id number] right foraminal narrowing. At L3-L4, there is loss of disc height, associated with a moderate disc bulge, and mild facet arthropathy with infolding of ligamentum flavum. There is moderate narrowing of the central canal, severe right foraminal narrowing, patent left foramen. At L4-L5, there is superior endplate retropulsion of L5, and a moderate to large disc bulge, as well as mild to moderate facet arthropathy with infolding of ligamentum flavum. There is moderate to severe central canal narrowing, mild to moderate left, and severe right foraminal stenosis. At L5-S1, there is a mild disc bulge, and mild bilateral facet arthropathy. No significant central canal narrowing, mild bilateral foraminal stenosis. Visualized retroperitoneal, and paraspinal soft tissues are unremarkable. Note is made of a large amount of fecal content in colon, which could indicate constipation. IMPRESSION: Levoscoliosis. Compression deformities at L4 and L5. Left transverse fractures at L2 and L3 and healing left posterior 11th rib fracture. Superimposed degenerative changes as described. In particular, there is moderate central canal narrowing at L3-L4, moderate to severe central canal narrowing at L4-L5, and severe right-sided foraminal narrowing at both levels. Signed: Jaimie Willard MD Report Verified Date/Time: 11/30/2016 10:51:49 Reading Location: [facility] B1 C013V Neuro Reading Room spine lumbar without IV contrast (11/29/2016 11:17 PM) Specimen Performing Laboratory RIS Narrative FINAL REPORT MR, SPINE, LUMBAR, WITHOUT CONTRAST INDICATION: fracture of lumbar spine s/p fall COMPARISON: None TECHNIQUE: Multiplanar, multisequence MR images of the lumbar spine without contrast. FINDINGS: Compression fractures involving the L4 and L5 vertebral body with approximately 50% height loss anteriorly. Edema in the inferior endplate of L3 likely represents endplate fracture at this level. Edema extends to the posterior elements, with signal abnormality noted in the spinous processes of L3, L4 and L5. Acute findings are superimposed over chronic degenerative facet disease and marked levoscoliotic forming. There is severe foraminal narrowing on the right at L2-3, L3-4 and L4-5 with moderate narrowing at L5-S1. Moderate left foraminal narrowing is present at L4-5. There is multilevel mild disc regions without canal compromise. The conus and descending nerve roots exhibit unremarkable appearance. The conus terminates at the L1 level. Paraspinal soft tissue structures posteriorly reveal asymmetric atrophy compatible with chronic scoliotic compensation. Retroperitoneal soft tissue structures are grossly unremarkable. Aortic caliber is normal within the imaged volume. IMPRESSION: Compression fractures of L4 and L5 with approximately 50% height loss anteriorly. Edema extends to the posterior elements and spinous processes. Edema in the inferior endplate of L3 likely representing impacted/fracture at this level. No canal compromise. 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 Signed: JR Richard, Ashley ALVAREZ Report Verified Date/Time:11/29/2016 23:39:10 Reading Location: [address] Reading Room Procedure Note Interface, External Ris In - 11/29/2016 11:41 PM CDT FINAL REPORT MR, SPINE, LUMBAR, WITHOUT CONTRAST INDICATION: fracture of lumbar spine s/p fall COMPARISON: None TECHNIQUE: Multiplanar, multisequence MR images of the lumbar spine without contrast. FINDINGS: Compression fractures involving the L4 and L5 vertebral body with approximately 50% height loss anteriorly. Edema in the inferior endplate of L3 likely represents endplate fracture at this level. Edema extends to the posterior elements, with signal abnormality noted in the spinous processes of L3, L4 and L5. Acute findings are superimposed over chronic degenerative facet disease and marked levoscoliotic forming. There is severe foraminal narrowing on the right at L2-3, L3-4 and L4-5 with moderate narrowing at L5-S1. Moderate left foraminal narrowing is present at L4-5. There is multilevel mild disc regions without canal compromise. The conus and descending nerve roots exhibit unremarkable appearance. The conus terminates at the L1 level. Paraspinal soft tissue structures posteriorly reveal asymmetric atrophy compatible with chronic scoliotic compensation. Retroperitoneal soft tissue structures are grossly unremarkable. Aortic caliber is normal within the imaged volume. IMPRESSION: Compression fractures of L4 and L5 with approximately 50% height loss anteriorly. Edema extends to the posterior elements and spinous processes. Edema in the inferior endplate of L3 likely representing impacted/fracture at this level. No canal compromise. 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 Signed: JR Richard, Ashley ALVAREZ Report Verified Date/Time: 11/29/2016 23:39:10 Reading Location: [address] Reading Room Lipid panel (11/29/2016 9:48 AM) Component Value Ref Range Triglycerides 66 mg/dL Cholesterol 170 mg/dL HDL 58 mg/dL LDL Calculated 99 mg/dL Specimen Performing Laboratory Blood - Line, Venous [facility] [address] [address] Narrative Triglyceride Reference Range: Low Risk <150 [id number] High Risk 200-499 Very High Risk>=500 Cholesterol Reference Range: Low Risk <200 [id number] High Risk>240 HDL Cholesterol Reference Range: Low Risk >=60 High Risk <40 LDL Cholesterol Reference Range: Optimal<100 Near [id number] Very High >=190 after 07/11/2016
--- OUTSIDE RECORDS SUMMARY | 2017-07-12 21:12 | XMS REPORT | Clinical Summary ---
:1945 Author Organization [facility] Address [address] [place] [address] Care Team Providers Name Role Phone Asked, No Pcp Primary Care Provider Unavailable Allergies Active Allergy Reactions Severity Noted Date Comments Adhesive Tape-Silicones Itching, Swelling Medium 11/17/2009 Itching & swelling Itching & swelling Butorphanol Tartrate Anaphylaxis, High 11/17/2009 "brings on cardiac Palpitations arrest" Clarithromycin Palpitations High 11/17/2009 High heart rate Doxycycline Hyclate Other (See Comments) Low 03/11/2016 Abdominal pain Erythromycin Nausea Only Low 03/11/2016 Gabapentin Other (See Comments) 03/11/2016 disorientation Glycopyrrolate Nausea Only Low 03/11/2016 Levofloxacin Nausea Only Low 03/11/2016 Moxifloxacin Nausea Only Low 03/11/2016 Nabumetone Nausea Only 03/11/2016 Tolterodine Nausea Only Low 03/11/2016 Current Medications Prescription Sig. Disp. Refills Start Date End Date Status VENTOLIN HFA 90 4 12/11/2015 Active mcg/actuation inhaler atenolol (TENORMIN) 25 mg daily. 1 02/21/2016 Active 50 MG tablet sucralfate as needed. 3 01/24/2016 Active (CARAFATE) 1 gram tablet alendronate 0 01/09/2017 Active (FOSAMAX) 70 MG tablet esomeprazole Take 40 mg by Active (NexIUM) 40 MG mouth daily capsule before breakfast. morPHINE (MSIR) 30 Take 1 tablet 180 tablet 05/20/2017 Active MG tablet (30 mg total) 8 by mouth every 4 (four) hours as needed for severe pain for up to 90 days. Max Daily Amount: 180 mg megestrol (MEGACE) 1 06/06/2017 Active 400 mg/10 mL (40 mg/mL) suspension esomeprazole as needed. 4 03/05/2016 Discontinued (NexIUM) 40 MG 7 capsule acetaminophen Take 500 mg by Discontinued (TYLENOL) 500 MG mouth every 6 7 tablet (six) hours as needed for mild pain. HYDROcodone-acetami Take 1 tablet 0 05/29/2016 Discontinued nophen (NORCO) by mouth every 7 10-325 mg per 6 (six) hours tablet as needed for moderate pain for up to [address] 1 patch 0 06/28/2016 Discontinued (DURAGESIC) 50 on the skin 7 mcg/hr every third day. nitroglycerin Place 0.4 mg Discontinued (NITROSTAT) 0.4 MG under the 7 SL tablet tongue. oxyCODone Take 1 tablet 120 tablet 07/25/2016 Discontinued (ROXICODONE) 15 MG (15 mg total) 7 immediate release by mouth 4 tablet (four) times a day for 90 days. oxyCODone Take 1 tablet 120 tablet 07/31/2016 Discontinued (ROXICODONE) 15 MG (15 mg total) 7 immediate release by mouth every tablet 4 (four) hours as needed for moderate pain for up to 90 days. Max Daily Amount: 90 mg oxyCODone Take 1 tablet 10/08/2016 (ROXICODONE) 30 MG (30 mg total) 7 immediate release by mouth 4 tablet (four) times a day for 90 days. acetaminophen-codei 0 10/30/2016 Discontinued ne (TYLENOL WITH 7 CODEINE #4) 300-60 mg per tablet mirtazapine Take 1 tablet 30 tablet 2 11/13/2016 Discontinued (REMERON) 15 MG (15 mg total) 7 tabletIndications: by mouth Moderate single nightly. current episode of major depressive disorder oxyCODone Take 30 mg by Discontinued (ROXICODONE) 30 MG mouth every 6 7 immediate release (six) hours as tablet needed for moderate pain. oxyCODone Take 1 tablet 02/04/2017 Discontinued (ROXICODONE) 30 MG (30 mg total) 7 immediate release by mouth every tablet 6 (six) hours as needed for moderate pain for up to 90 days. Max Daily Amount: 120 mg megestrol (MEGACE) Take 5 mL (200 300 mL 2 02/27/2017 400 mg/10 mL (40 mg total) by 8 mg/mL) suspension mouth 2 (two) times a day for 90 days. oxyCODone Take 1 tablet 180 tablet 02/27/2017 Discontinued (ROXICODONE) 30 MG (30 mg total) 8 immediate release by mouth every tablet 4 (four) hours as needed for moderate pain for up to 90 days. Max Daily Amount: 180 mg Active Problems Problem Noted Date Pathological fracture of right radius due to osteoporosis, sequela 04/11/2017 Chronic prescription opiate use 11/07/2016 Bilateral hip bursitis 11/07/2016 Chronic cervical radiculopathy 10/08/2016 Scoliosis 10/08/2016 Myalgia 10/08/2016 Back pain 05/29/2016 Cervicalgia 05/29/2016 Lumbar radicular pain 05/29/2016 Hip pain, chronic 05/29/2016 Lumbar disc disease 05/29/2016 Encounters Date Type Specialty Care Team Description 07/09/2017 Lab Lab Karon Pearson Deep vein thrombosis (DVT) of left lower extremity, unspecified chronicity, unspecified vein; MD Alec Dyspnea and respiratory abnormalities 07/09/2017 Hospital Encounter Procedural Cardiology Karon Pearson Leg DVT (deep MD Alec venous thromboembolism), acute, unspecified laterality 07/09/2017 Orders Only Intensive Care Karon Pearson Deep vein thrombosis (DVT) of left lower extremity, unspecified chronicity, unspecified vein ( Primary Dx); MD Alec Dyspnea and respiratory abnormalities 07/09/2017 Documentation Intensive Care Karon Pearson Jr., MD 07/02/2017 Transcribe Orders Access Karon Pearson Dyspnea, unspecified type (Primary Dx); MD Alec Leg DVT (deep venous thromboembolism), acute, unspecified laterality; Scoliosis, unspecified scoliosis type, unspecified spinal region; Back pain, unspecified back location, unspecified back pain laterality , unspecified chronicity 06/16/2017 Office Visit Physical Medicine and Pérez, Back pain, unspecified back location, unspecified back pain laterality, unspecified chronicity (Primary Dx); Rehabilitation Daryl Martin MD Cervicalgia; Lumbar radicular pain; Chronic pain of right hip; Chronic cervical radiculopathy; Myalgia; Lumbar disc disease; Scoliosis, unspecified scoliosis type, unspecified spinal region; Bursitis of both hips, unspecified bursa; Chronic prescription opiate use 06/16/2017 Office Visit Physical Medicine and Cathy Mo, Back pain, unspecified back location, unspecified back pain laterality, unspecified chronicity (Primary Dx); Rehabilitation Cervicalgia; Chronic cervical radiculopathy; Lumbar radicular pain; Bursitis of both hips, unspecified bursa; Scoliosis, unspecified scoliosis type, unspecified spinal region 06/12/2017 Hospital Encounter Radiology 06/06/2017 Transcribe Orders Physical Therapy Cathy Mo, Decreased mobility MD (Primary Dx) 05/20/2017 Office Visit Physical Medicine and Ananya Myalgia (Primary Dx); Rehabilitation Daryl Martin MD Back pain, unspecified back location, unspecified back pain laterality, unspecified chronicity; Chronic prescription opiate use; Bursitis of both hips, unspecified bursa; Scoliosis, unspecified scoliosis type, unspecified spinal region; Lumbar disc disease; Chronic cervical radiculopathy; Chronic pain of right hip; Lumbar radicular pain; Cervicalgia 05/01/2017 Telephone Endocrinology Angélica Cain MA 04/11/2017 Orders Only Endocrinology Karol Cain MA fracture of right radius due to age-related osteoporosis, sequela (Primary Dx) 04/02/2017 Telephone Physical Medicine and Onur, Scoliosis, unspecified scoliosis type, unspecified spinal region (Primary Dx); Rehabilitation KEMI Flores Lumbar disc disease 02/28/2017 Orders Only Physical Medicine and OnurMarquise lizarraga MA 02/27/2017 Office Visit Physical Medicine and Ananya, Scoliosis, unspecified scoliosis type, unspecified spinal region (Primary Dx); Rehabilitation Daryl Martin MD Bursitis of both hips, unspecified bursa; Lumbar disc disease; Myalgia; Chronic cervical radiculopathy; Chronic pain of right hip; Lumbar radicular pain; Cervicalgia; Back pain, unspecified back location, unspecified back pain laterality , unspecified chronicity; Chronic prescription opiate use 02/04/2017 Office Visit Physical Medicine and Ananya, Back pain, unspecified back location, unspecified back pain laterality, unspecified chronicity (Primary Dx); Rehabilitation Daryl Martin MD Cervicalgia; Lumbar radicular pain; Chronic pain of right hip; Chronic cervical radiculopathy; Myalgia; Lumbar disc disease; Scoliosis, unspecified scoliosis type, unspecified spinal region; Bursitis of both hips, unspecified bursa; Chronic prescription opiate use 11/29/2016 Telephone Physical Medicine and Oralia Crawley Rehabilitation RN 11/13/2016 Lab Lab Gabrielatabai, Pathological Malena Cardozo MD fracture of right radius due to age-related osteoporosis, sequela 11/13/2016 Office Visit Internal Medicine Kyle Benitez single current episode of major depressive disorder (Primary Dx); MD Prosper Back pain, unspecified back location, unspecified back pain laterality, unspecified chronicity 11/13/2016 Office Visit Endocrinology Tabatabai, Pathological fracture of right radius due to age-related osteoporosis, sequela (Primary Dx); Malena Cardozo MD Vitamin D deficiency; Scoliosis, unspecified scoliosis type, unspecified spinal region; Lumbar disc disease; Back pain, unspecified back location, unspecified back pain laterality , unspecified chronicity 11/07/2016 Office Visit Physical Medicine and Pérez, Back pain, unspecified back location, unspecified back pain laterality, unspecified chronicity (Primary Dx); Rehabilitation Daryl Martin MD Lumbar disc disease; Scoliosis, unspecified scoliosis type, unspecified spinal region; Myalgia; Chronic cervical radiculopathy; Hip pain, chronic, right; Cervicalgia; Lumbar radicular pain; Chronic prescription opiate use; Bilateral hip bursitis 10/29/2016 Telephone Physical Medicine and Oralia Crawley Rehabilitation RN 2016 Telephone Physical Medicine and Oralia Crawley, Spinal stenosis, lumbar (Primary Dx); Rehabilitation RN Other secondary scoliosis; Lumbar radiculopathy; Impaired gait and mobility 2016 Telephone Internal Medicine Kyle Benitez MD 10/16/2016 Hospital Encounter Radiology Kyle Benitez MD breast cancer 10/16/2016 Office Visit Orthopedic Surgery Julio Alvarenga Degenerative scoliosis in adult patient (Primary Dx); MD Kristian DDD (degenerative disc disease), lumbar; Low back pain, unspecified back pain laterality, unspecified chronicity , with sciatica presence unspecified 10/14/2016 Hospital Encounter Radiology Kyle Benitez Pulmonary nodule MD Prosper 10/14/2016 Office Visit Internal Medicine Kyle Benitez Malaise and fatigue (Primary Dx); MD [place] Essential hypertension; Other chronic pain; Osteoporosis; Moderate single current episode of major depressive disorder; Screening for breast cancer; IFG (impaired fasting glucose); Pulmonary nodule 10/10/2016 Refill Physical Medicine and Onur, Rehabilitation KEMI Flores 10/08/2016 Office Visit Physical Medicine and Pérez, Back pain, unspecified back location, unspecified back pain laterality, unspecified chronicity (Primary Dx); Rehabilitation Daryl Martin MD Cervicalgia; Lumbar radicular pain; Hip pain, chronic, right; Lumbar disc disease; Chronic cervical radiculopathy; Scoliosis, unspecified scoliosis type, unspecified spinal region; Myalgia 10/08/2016 Office Visit Neurosurgery Issa Denton Degenerative MD scoliosis in adult patient (Primary Dx) 09/06/2016 Hospital Encounter Radiology Mark Russ Hip mass, right RArlin, PA-C 09/06/2016 Hospital Encounter Radiology Julio Alvarenga Lumbar stenosis; MD Kristian Degenerative scoliosis in adult patient; DDD (degenerative disc disease), lumbar; Cervicalgia 09/06/2016 Hospital Encounter Radiology Julio Alvarenga Lumbar stenosis; MD Kristian Degenerative scoliosis in adult patient; DDD (degenerative disc disease), lumbar; Cervicalgia 09/06/2016 Procedure Pass Radiology 09/06/2016 Orders Only Orthopedic Surgery Breaux, Hip mass, right KEMI Coughlin (Primary Dx) 09/06/2016 Orders Only Endocrinology Ant, Osteoporosis KEMI Lindsay (Primary Dx) 08/27/2016 Orders Only Orthopedic Surgery Breaux, Hip pain, acute, KEMI Coughlin right (Primary Dx) 08/23/2016 Telephone Physical Medicine and Onur Rehabilitation KEMI Flores 08/23/2016 Telephone Physical Medicine and Onur, Rehabilitation KEMI Flores 08/21/2016 Hospital Encounter Radiology Julio Alvarengaed MD Kristian (Scheduling Error) 08/21/2016 Hospital Encounter Radiology Julio Alvarenga MD 08/21/2016 Office Visit Orthopedic Surgery Julio Alvarenga Lumbar stenosis ( Primary Dx); MD Kristian Degenerative scoliosis in adult patient; DDD (degenerative disc disease), lumbar; Cervicalgia; Sagittal plane imbalance 08/21/2016 Procedure Pass Radiology 08/21/2016 Procedure Pass Radiology 08/21/2016 Procedure Pass Radiology 08/21/2016 Ancillary Orders Radiology Julio Alvarenga MD 08/15/2016 Documentation Physical Medicine and Ananya, Rehabilitation Daryl Martin MD 08/01/2016 Telephone Physical Medicine and Marquise Mohr MA 07/30/2016 Telephone Physical Medicine and Marquise Mohr MA 07/25/2016 Office Visit Physical Medicine and Ananya, Back pain, unspecified back location, unspecified back pain laterality, unspecified chronicity (Primary Dx); Rehabilitation Daryl Martin MD Cervicalgia; Lumbar radicular pain; Hip pain, chronic, right; Lumbar disc disease 07/16/2016 Telephone Physical Medicine and Marquise Mohr MA 07/11/2016 Telephone Physical Medicine and Oralia Crawley Rehabilitation RN after 07/11/2016 Family History Medical History Relation Name Comments Cancer Father Father Throat Heart attack Mother Hypertension Mother Osteoporosis Mother Dont know type Stroke Paternal Grandfather Stroke Paternal Grandmother Diabetes Sister Relation Name Status Comments Father Father Mother Paternal Grandfather Paternal Grandmother Sister Social History Tobacco Use Types Packs/Day Years Used Date Former Smoker Cigarettes 2 20 Smokeless Tobacco: Never Used Alcohol Use Drinks/Week oz/Week Comments No Sex Assigned at Date Recorded Not on file Last Filed Vital Signs Vital Sign Reading Time Taken Blood Pressure 145/62 06/16/2017 2:44 PM CDT Pulse 75 06/16/2017 2:44 PM CDT Temperature 35.9 C (96.7 F) 11/13/2016 11:49 AM CDT Respiratory Rate - - Oxygen Saturation 95% 11/13/2016 11:49 AM CDT Inhaled Oxygen Concentration - - Weight 64 kg (141 lb) 11/13/2016 2:47 PM CDT Height 152.4 cm (5') 11/13/2016 2:47 PM CDT Body Mass Index 27.54 11/13/2016 2:47 PM CDT Plan of Treatment Date Type Specialty Care Team Description 09/16/2017 Office Visit Physical Medicine and Daryl Pérez, Rehabilitation [address] [facility] [address] [place] [phone] Health Maintenance Due Date Last Done Comments COLONOSCOPY 10/27/1993 ZOSTER VACCINE 2003 PNEUMOCOCCAL POLYSACCHARIDE VACCINE AGE 65 AND OVER 10/27/2008 PNEUMOCOCCAL-13 10/27/2008 INFLUENZA VACCINE 10/29/2017 MAMMOGRAM 10/16/2018 10/16/2016 Procedures Procedure Name Priority Date/Time Associated Comments Diagnosis AL EMG,1 Routine 05/20/2017 11:15 Back pain, Results for this EXTREM,NONPARASPINAL AM CLIENT RELATIONSHIP MANAGER unspecified back procedure are in location, the results unspecified back section. pain laterality, unspecified chronicity Myalgia AL EMG,1 Routine 05/20/2017 11:15 Back pain, Results for this EXTREM,NONPARASPINAL AM CLIENT RELATIONSHIP MANAGER unspecified back procedure are in location, the results unspecified back section. pain laterality, unspecified chronicity Myalgia AL INJECT TRIGGER Routine 05/20/2017 11:15 Back pain, Results for this POINTS, > 3 AM CLIENT RELATIONSHIP MANAGER unspecified back procedure are in location, the results unspecified back section. pain laterality, unspecified chronicity Myalgia AL ARTHROCENTESIS Routine 05/20/2017 11:15 Bursitis of both Results for this ASPIR&/INJ MAJOR AM CLIENT RELATIONSHIP MANAGER hips, unspecified procedure are in JT/BURSA W/O US bursa the results section. AL ARTHROCENTESIS Routine 02/27/2017 5:47 Bursitis of both Results for this ASPIR&/INJ MAJOR PM CLIENT RELATIONSHIP MANAGER hips, unspecified procedure are in JT/BURSA W/O US bursa the results section. AL EMG,1 Routine 02/27/2017 5:47 Scoliosis, Results for this EXTREM,NONPARASPINAL PM CLIENT RELATIONSHIP MANAGER unspecified procedure are in scoliosis type, the results unspecified spinal section. region Myalgia AL EMG,1 Routine 02/27/2017 5:47 Scoliosis, Results for this EXTREM,NONPARASPINAL PM CLIENT RELATIONSHIP MANAGER unspecified procedure are in scoliosis type, the results unspecified spinal section. region Myalgia AL INJECT TRIGGER Routine 02/27/2017 5:47 Scoliosis, Results for this POINTS, > 3 PM CLIENT RELATIONSHIP MANAGER unspecified procedure are in scoliosis type, the results unspecified spinal section. region Myalgia AL ARTHROCENTESIS Routine 11/07/2016 1:07 Bilateral hip Results for this ASPIR&/INJ MAJOR PM CDT bursitis procedure are in JT/BURSA W/O US the results section. AL EMG,1 Routine 11/07/2016 1:07 Back pain, Results for this EXTREM,NONPARASPINAL PM CDT unspecified back procedure are in location, the results unspecified back section. pain laterality, unspecified chronicity Myalgia AL EMG,1 Routine 11/07/2016 1:07 Back pain, Results for this EXTREM,NONPARASPINAL PM CDT unspecified back procedure are in location, the results unspecified back section. pain laterality, unspecified chronicity Myalgia AL INJECT TRIGGER Routine 11/07/2016 1:07 Back pain, Results for this POINTS, > 3 PM CDT unspecified back procedure are in location, the results unspecified back section. pain laterality, unspecified chronicity Myalgia AL EMG,1 Routine 10/08/2016 4:41 Cervicalgia Results for this EXTREM,NONPARASPINAL PM CDT Myalgia procedure are in the results section. AL EMG,1 Routine 10/08/2016 4:41 Cervicalgia Results for this EXTREM,NONPARASPINAL PM CDT Myalgia procedure are in the results section. AL INJECT TRIGGER Routine 10/08/2016 4:41 Cervicalgia Results for this POINTS, > 3 PM CDT Myalgia procedure are in the results section. after 07/11/2016 Results Estimated GFR (07/09/2017 3:20 PM)Only the most recent of2 resultswithin the time period is included. Component Value Ref Range GFR Non Af Amer 70 mL/min/1.73 m2 GFR Af Amer 85 mL/min/1.73 m2 Comment: Chronic kidney disease: <60 mL/min/1.73m2 Kidney failure: <15 mL/min/1.73m2 The estimated GFR is calculated from the IDMS-traceable Modification of Diet in Renal Disease Equation. The accuracy of the calculation is poor when the creatinine is normal. Calculated values >90 mL/min/1.73m2 are not reported. This equation has not been validated in children (<18 years), women, the elderly (>70 years), or ethnic groups other than Caucasians and Americans. Specimen Performing Laboratory Plasma specimen [facility] DEPARTMENT OF PATHOLOGY AND GENOMIC MEDICINE [address] [place] [address] Prothrombin time with INR (07/09/2017 3:20 PM) Component Value Ref Range Prothrombin time 13.8 12.0 - 15.0 sec INR 1.0 Comment: The International Normalized Ratio (INR) is a therapeutic monitoring tool for patients who are stable on oral anticoagulant therapy. An INR of 2.0-3.0 is suggested for deep vein thrombosis/pulmonary embolism. Specimen Performing Laboratory Blood [facility] DEPARTMENT OF PATHOLOGY AND [facility] [address] [place] [id number] D-dimer (07/09/2017 3:20 PM) Component Value Ref Range D-dimer 0.97 (H) 0.00 - 0.40 ug/mL FEU Comment: Units are ug/ml Fibrinogen Equivalent Unit. When combined with low clinical probability, D-dimer results of less than 0.5 ug/ml FEU have a good negativepredictive value in excluding PE or DVT. For D-dimer results greater than 0.5ug/ml FEU further testing is indicated if PE or DVT is suspectedclinically. Elevated D-dimer results have been reported in DVT, PE, and DIC cases and may indicate the presence of a clot. D-dimer results may be elevated due to old age, , inflammatory diseases, trauma, post-operative states, sepsis, and malignancies. Specimen Performing Laboratory Blood [facility] DEPARTMENT OF PATHOLOGY AND [facility] MEDICINE [address] [place] [phone] CBC with platelet and differential (07/09/2017 3:20 PM) Component Value Ref Range WBC 6.98 4.50 - 11.00 k/uL RBC 4.34 4.20 - 5.50 m/uL HGB 13.0 12.0 - 16.0 g/dL HCT 39.4 37.0 - 47.0 % MCV 90.8 82.0 - 100.0 fL MCH 30.0 27.0 - 34.0 pg MCHC 33.0 31.0 - 37.0 g/dL RDW - SD 41.1 37.0 - 55.0 fL MPV 10.3 8.8 - 13.2 fL Platelet count 178 150 - 400 k/uL Nucleated RBC 0.00 /100 WBC Neutrophils 65.5 39.0 - 69.0 % Lymphocytes 22.2 (L) 25.0 - 45.0 % Monocytes 9.5 0.0 - 10.0 % Eosinophils 1.7 0.0 - 5.0 % Basophils 0.7 0.0 - 1.0 % Immature granulocytes 0.4Comment: "Immature granulocytes" 0.0 - 1.0 % (promyelocytes, myelocytes, metamyelocytes) Specimen Performing Laboratory Blood [facility] DEPARTMENT OF PATHOLOGY AND [facility] MEDICINE [address] [place] [phone] Comprehensive metabolic panel (07/09/2017 3:20 PM)Only the most recent of2 resultswithin the time period is included. Component Value Ref Range Sodium 138 135 - 148 mEq/L Potassium 4.0 3.5 - 5.0 mEq/L Chloride 98 98 - 112 mEq/L CO2 28 24 - 31 mEq/L Anion gap 12 7 - 15 mEq/L Comment: Starting from June , anion gap calculation no longer incorporates potassium. Please note the change. BUN 11 8 - 23 mg/dL Creatinine 0.8 0.5 - 0.9 mg/dL Glucose 82 65 - 99 mg/dL Calcium 9.4 8.8 - 10.2 mg/dL Protein 7.2 6.3 - 8.3 g/dL Comment: 4.6-7.0 g/dL 1 week 4.4-7.6 g/dL 7 months-1year5.1-7.3 g/dL 1-2 years5.6-7.5 g/dL >3 years6.0-8.0 g/dL 18-150 6.3-8.3 g/dL Albumin 3.8 3.5 - 5.0 g/dL A/G ratio 1.1 0.7 - 3.8 Alkaline phosphatase 47 35 - 104 U/L AST 22 10 - 35 U/L ALT 14 5 - 50 U/L Total bilirubin 0.9 0.0 - 1.2 mg/dL Specimen Performing Laboratory Plasma specimen [facility] DEPARTMENT OF PATHOLOGY AND GENOMIC MEDICINE [address] [place] [address] Pv duplex venous lower extremity (07/09/2017 11:50 AM) Specimen Performing Laboratory [facility] [address] [place] [address] Narrative Vascular Ultrasound Laboratory Lower Extremity Venous Report [id number] [address] Pat.Name:ARIANNE AMBRIZ Pat.ID:[id number] .Date: 07/09/2017 Refer.MD:KARON PEARSON MD Exam Time: 10:50:00 AM Study Type:LE Venous Height:64inWeight:138lb BSA: 1.67 m2 DOBAge:1945,71Y Sex: FEMALESonogrphr: Kasandra Cross RVT Pat. Stat.:OutpatientRoom:OPC 16 TapeVol: SD, CPT - 4: 69495 Echo Event ID:[id number] Order ID:[id number] Reason for Study:Shortness of breath, Hx of Scoliosis, Cervicalgia, HTN, Chest pain, Patient fell in October 2016 and had back surgery. Race:C SUMMARY: DUPLEX SCAN OBSERVATIONS Deep VeinsSuperficial Veins RightLeft RightLeft GSV (prox) NormalNormal CFV Normal Normal (above knee) Femoral Normal Partial GSV (dist) Normal Normal Profunda Normal Normal (below knee) Popliteal Normal Normal PT (prox) Normal NormalSSV Normal Not Visualized PT (dist) Normal Normal Peroneal Normal Normal GastrocsPartial/Chronic RIGHT:There is normal compressibility with no evidence of echogenic material noted within the lumen of the visualized veins.Colorflow and Doppler signals are normal. LEFT: The mid femoral vein is partially compressible with soft and bright echogenic material inside the lumen. Color flow is diminished. One of the gastrocnemius veins are partially compressible with bright echogenic material inside the lumen. Colorflow and Doppler signals are diminished..Remainder of the above visualized veins appear patent. PRELIMINARY FINDINGS 1. 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 2. 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 PHYSICIAN INTERPRETATION Venous examination of the both lower extremities demonstrated acute on chronic partial deep vein thrombosis of left mid femoral vein and a chronic, partial deep vein thrombosis of one of the left gastrocnemius veins. Signed 07/09/2017 04:26 PM Chago Mera MD, RPVI Procedure Note Interface, Radiology Results In - 07/09/2017 4:27 PM CDT Vascular Ultrasound Laboratory Lower Extremity Venous Report [id number] [place] [address] Pat.Name: ARIANNE AMBRIZ Pat.ID: [id number] St.Date: 07/09/2017 Refer.MD: KARON PEARSON MD Exam Time: 10:50:00 AM Study Type:LE Venous Height: 64in Weight: 138lb BSA: 1.67 m2 Age: 7 1945,71Y Sex: FEMALE Sonogrphr: Kasandra Cross RVT Pat. Stat.:Outpatient Room: OPC 16 Tape Vol: SD, CPT - 4: 11751 Echo Event ID:[id number] Order ID: [id number] Reason for Study:Shortness of breath, Hx of Scoliosis, Cervicalgia, HTN, Chest pain, Patient fell in October 2016 and had back surgery. Race: C SUMMARY: DUPLEX SCAN OBSERVATIONS Deep Veins Superficial Veins Right Left Right Left GSV (prox) Normal Normal CFV Normal Normal (above knee) Femoral Normal Partial GSV (dist) Normal Normal Profunda Normal Normal (below knee) Popliteal Normal Normal PT (prox) Normal Normal SSV Normal Not Visualized PT (dist) Normal Normal Peroneal Normal Normal Gastrocs Partial/Chronic RIGHT: There is normal compressibility with no evidence of echogenic material noted within the lumen of the visualized veins.Colorflow and Doppler signals are normal. LEFT: The mid femoral vein is partially compressible with soft and bright echogenic material inside the lumen. Color flow is diminished. One of the gastrocnemius veins are partially compressible with bright echogenic material inside the lumen. Colorflow and Doppler signals are diminished.. Remainder of the above visualized veins appear patent. PRELIMINARY FINDINGS 1. 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 2. 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 PHYSICIAN INTERPRETATION Venous examination of the both lower extremities demonstrated acute on chronic partial deep vein thrombosis of left mid femoral vein and a chronic, partial deep vein thrombosis of one of the left gastrocnemius veins. Signed 07/09/2017 04:26 PM Chago Mera MD, RPVI Joint/Bursa Injection (05/20/2017 11:15 AM) Good Pérez MD 05/20/2017 12:50 PM Joint/Bursa Injection Consent given by: patient Timeout: Immediately prior to procedure a time out was called to verify the correct patient, procedure, equipment, clerical and office support workers and site/side marked as required Supporting Documentation Indications: pain Procedure Details Injection Type: bursa Location: gluteal - bilateral Right side: Patient tolerance: patient tolerated the procedure well with no immediate complications Left side: Patient tolerance: patient tolerated the procedure well with no immediate complications Medications administered: 40 mg triamcinolone acetonide 40 mg/mL; 2 mL lidocaine 10 mg/mL (1 %) Gluteal Bursa Size: large INJECT TRIGGER POINT, 1 OR 2 (05/20/2017 11:15 AM) Good Pérez MD 05/20/2017 12:50 PM Trigger Point Injection Date/Time: 05/20/2017 12:46 PM Performed by: DARYL PÉREZ Authorized by: DARYL PÉREZ Consent: Consent obtained:Written Consent given by:Patient Risks discussed:Allergic reaction, bleeding, infection, pain and nerve damage Alternatives discussed:No treatment, alternative treatment and referral Indications: Indications:Pain relief Location: Therapeutic Trigger Point Injection:Multiple trigger points: 3 or more muscle groups Location: back Back location injected:Bilateral lumbar EMG guidance was used for proper localization of injection site using Motor Unit Potential activity for deep or difficult to localize injection sites. Medications administered: 40 mg triamcinolone acetonide 40 mg/mL; 2 mL lidocaine 10 mg/mL (1 %) Pre-procedure details: Skin preparation:Alcohol Post-procedure details: Patient tolerance of procedure:Tolerated well, no immediate complications Drug Screen (05/20/2017)Only the most recent of4 resultswithin the time period is included.Joint/Bursa Injection (02/27/2017 5:47 PM) Good Pérez MD 02/27/20175:47 PM Joint/Bursa Injection Consent given by: patient Timeout: Immediately prior to procedure a time out was called to verify the correct patient, procedure, equipment, clerical and office support workers and site/side marked as required Supporting Documentation Indications: pain Procedure Details Injection Type: bursa Location: gluteal - bilateral Right side: Patient tolerance: patient tolerated the procedure well with no immediate complications Left side: Patient tolerance: patient tolerated the procedure well with no immediate complications Medications administered: 40 mg triamcinolone acetonide 40 mg/mL; 2 mL lidocaine 10 mg/mL (1 %) Gluteal Bursa Size: large INJECT TRIGGER POINT, 1 OR 2 (02/27/2017 5:47 PM) Good Pérez MD 02/27/20175:47 PM Trigger Point Injection Date/Time: 02/27/2017 3:01 PM Performed by: DARYL PÉREZ Authorized by: DARYL PÉREZ Consent: Consent obtained:Written Consent given by:Patient Risks discussed:Allergic reaction, bleeding, infection, pain and nerve damage Alternatives discussed:No treatment, alternative treatment and referral Indications: Indications:Pain relief Location: Therapeutic Trigger Point Injection:Multiple trigger points: 3 or more muscle groups Location: back Back location injected:Bilateral lumbar EMG guidance was used for proper localization of injection site using Motor Unit Potential activity for deep or difficult to localize injection sites. Medications administered: 40 mg triamcinolone acetonide 40 mg/mL; 3 mL lidocaine 10 mg/mL (1 %) Pre-procedure details: Skin preparation:Alcohol Post-procedure details: Patient tolerance of procedure:Tolerated well, no immediate complications Tissue transglutaminase Ab, IgA (11/13/2016 4:16 PM) Component Value Ref Range Tissue transglutaminase Ab, IgA 1 0 - 3 U/mL Comment: INTERPRETIVE INFORMATION: Tissue Transglutaminase (tTG) Antibody, IgA 3 U/mL or less: Negative 4-10 U/mL: Weak Positive 11 U/mL or greater: Positive Presence of the tissue transglutaminase (tTG) IgA antibody is associated with glutensensitive enteropathies such as celiac disease and dermatitis herpetiformis. tTG IgA antibody concentrations greater than 40 U/mL usually correlate with results of duodenal biopsies consistent with a diagnosis of celiac disease. For antibody concentrations greater or equal to 4 U/mL but less than or equal to 40 U/mL, additional testing for endomysial (EULOGIO) IgA concentrations may improve the positive predictive value for disease. Performed by [facility], [address] [place] [id number] [email or web address], Hamilton Shine MD - Lab. Director Specimen Performing Laboratory Serum [facility] [address] [place] [address] Tissue transglutaminase Ab, IgG (11/13/2016 4:16 PM) Component Value Ref Range Tissue transglutaminase Ab, IgG 4 0 - 5 U/mL Comment: INTERPRETIVE INFORMATION: Tissue Transglutaminase Ab, IgG 5 U/mL or less: ......... Negative 6-9 U/mL: ............... Weak Positive 10 U/mL or greater: ..... Positive The tTG IgG assay may aid in the diagnosis of gluten-sensitivity enteropathy (i.e., celiac disease, dermatitis herpetiformis) in tTG IgA negative patients with confirmed IgA deficiency. A negative tTG IgG test alone does not rule out gluten-sensitive enteropathy. Performed by [facility] [address] [email or web address], Hamilton Shine MD - Lab. Director Specimen Performing Laboratory Serum [facility] [address] [place] [address] Serum electrophoresis (11/13/2016 4:16 PM) Component Value Ref Range Protein 6.7 6.3 - 8.3 g/dL Comment: 4.6-7.0 g/dL 1 week 4.4-7.6 g/dL 7 months-1year5.1-7.3 g/dL 1-2 years5.6-7.5 g/dL >3 years6.0-8.0 g/dL 18-150 6.3-8.3 g/dL SPE albumin 4.54 4.00 - 5.30 g/dL SPE alpha 1 0.19 0.10 - 0.25 g/dL SPE alpha 2 0.73 0.58 - 0.84 g/dL SPE beta 0.68 0.50 - 1.10 g/dL SPE gamma 0.56 (L) 0.60 - 1.30 g/dL SPE extended interpretation See CommentComment: Gamma globulins are slightly decreased. SPE interpretation See CommentComment: Celestino Laguna MD MPH; Issa Boss MD PhD Specimen Performing Laboratory Serum [facility] [address] [place] [address] Parathyroid hormone (11/13/2016 4:16 PM) Component Value Ref Range PTH 46 15 - 65 pg/mL Specimen Performing Laboratory Blood [facility] [address] [place] [address] Bone Density (11/13/2016 11:42 AM) Specimen Performing Laboratory [facility] [address] [place] [address] Narrative [facility] [address] [place] [address] [address] [place] [address] Bone Density Report Name: Arianne Ambriz Sex: Female Age: 71 Ethnicity: White Height: 60.0 in Referring Provider: MALENA SUGGS Date of : 1945 Weight: 139.0lb Indication: Postmenopausal; screening for osteoporosis; prior fracture Accession number: [id number] Bone Density: Exam date 11/13/2016 Region BMD (g/cm2) T-score Z-score Classification AP Spine(L1-L4) 0.847 -1.80.5 Osteopenia Femoral Neck(Left) 0.670 -1.60.4 Osteopenia Total Hip(Left) 0.797 -1.20.5 Osteopenia Femoral Neck(Right) 0.713 -1.20.7 Osteopenia Total Hip(Right) 0.754 -1.50.1 Osteopenia Total Hip Mean 0.776 -1.4 0.3 Osteopenia Total Forearm(Left) 0.453 -2.3 -0.1 1/3 Forearm(Left) 0.563 -2.20.2 UD Forearm(Left) 0.339 -1.8 -0.1 World Health Organization criteria for BMD impression classify patients as Normal (T-score at or above 1.0), Osteopenia (T-score between 1.0 and 2.5), or Osteoporosis (T-score at or below 2.5). 10-year Fracture Risk: Major Osteoporotic Fracture 17% Hip Fracture 3.0% Reported Risk Factors: [place] (), T-score(WHO)=-1.6, BMI=27.1, previous fracture FRAX Version 3.08. Fracture probability calculated for an untreated patient. Fracture probability may be lower if the patient has received treatment. Impression: The patient has low bone mass, based on the Total Spine T-score. The patient has an elevated estimated ten-year risk of hip fracture of 3% and an estimated ten-year risk of major fracture of 17%, based on the WHO FRAX algorithm for a patient not on therapy (NOF thresholds are 20% for a major fracture and 3% for a hip fracture). The patient has risk factors, including: previous fracture. Discussion: BONE DENSITY IS LOW AT ONE OR MORE SKELETAL SITES. THE PATIENT'S BMD AND CLINICAL RISK FACTORS CONTRIBUTE TO THIS PATIENT'S INCREASED RISK OF FRACTURE. This patient's lowest T-score is low at one or more skeletal sites.It meets the World Health Organization's (WHO) criteria for low bone mass (T-score between -1.0 and -2.5). The patient's 10-year risk of hip fracture as calculated by FRAX exceeds the threshold where pharmacological therapy is recommended by the National Osteoporosis Foundation (NOF).However, all treatment decisions require clinical judgment and consideration of individual patient factors, including patient preferences, comorbidities, previous drug use, risk factors not captured in the FRAX model (e.g., frailty, falls, vitamin D deficiency, increased bone turnover, interval significant decline in bone density) and possible under or overestimation of fracture risk by FRAX. The patient should follow a healthful lifestyle (good nutrition with adequate calcium and vitamin D, and appropriate weight-bearing exercise). Follow-Up: Consider a repeat BMD and Vertebral Fracture Assessment (VFA) exam in 2 years or sooner if medically necessary, to reassess this patient's status. Reported by: Valdemar Manning MD, TIA, MACE, FACP on 11/14/2016 6:17:00 AM. Joint/Bursa Injection (11/07/2016 1:07 PM) Good Pérez MD 11/07/20161:07 PM Joint/Bursa Injection Consent given by: patient Timeout: Immediately prior to procedure a time out was called to verify the correct patient, procedure, equipment, clerical and office support workers and site/side marked as required Supporting Documentation Indications: pain Procedure Details Injection Type: bursa Location: gluteal - bilateral Right side: Patient tolerance: patient tolerated the procedure well with no immediate complications Left side: Patient tolerance: patient tolerated the procedure well with no immediate complications Medications administered: 40 mg triamcinolone acetonide 40 mg/mL; 1 mL lidocaine 10 mg/mL (1 %) Gluteal Bursa Size: large INJECT TRIGGER POINT, 1 OR 2 (11/07/2016 1:07 PM) Narrative Daryl Pérez MD 11/07/20161:07 PM Trigger Point Injection Date/Time: 11/07/2016 1:04 PM Performed by: DARYL PÉREZ Authorized by: DARYL PÉREZ Consent: Consent obtained:Written Consent given by:Patient Risks discussed:Allergic reaction, bleeding, infection, pain and nerve damage Alternatives discussed:No treatment, alternative treatment and referral Indications: Indications:Pain relief Location: Therapeutic Trigger Point Injection:Multiple trigger points: 3 or more muscle groups Location: back Back location injected:Bilateral lumbar EMG guidance was used for proper localization of injection site using Motor Unit Potential activity for deep or difficult to localize injection sites. Medications administered: 40 mg triamcinolone acetonide 40 mg/mL; 2 mL lidocaine 10 mg/mL (1 %) Pre-procedure details: Skin preparation:Alcohol Post-procedure details: Patient tolerance of procedure:Tolerated well, no immediate complications CT Lumbar Spine Wo Contrast (10/30/2016)Vitamin D 25 hydroxy level (2016 3:07 PM) Component Value Ref Range Vitamin D, 25-hydroxy 38 30 - 100 ng/mL Comment: Vitamin D Status 25-OH Vitamin D: Deficiency:<20 ng/mL Insufficiency: 20 - 29 ng/mL Optimal: > or=30 ng/mL For 25-OH Vitamin D testing on patients on D2-supplementation and patients for whom quantitation of D2 and D3 fractions is required, the QuestAssureD(TM) 25-OH VIT D, (D2,D3), LC/MS/MS is recommended: order code 95538 (patients >2yrs). For more information on this test, go to: http://education.[employer]/faq/WLT219 (This link is being provided for informational/educational purposes only.) Specimen Performing Laboratory Blood [facility] Narrative FASTING:YES Hemoglobin A1c (2016 3:07 PM) Component Value Ref Range Hemoglobin A1C 5.4 <5.7 % of total Hgb Comment: For the purpose of screening for the presence of diabetes: <5.7% Consistent with the absence of diabetes 5.7-6.4%Consistent with increased risk for diabetes (prediabetes) > or=6.5%Consistent with diabetes This assay result is consistent with a decreased risk of diabetes. Currently, no consensus exists regarding use of hemoglobin A1c for diagnosis of diabetes in children. According to [place] [employer] (ADA) guidelines, hemoglobin A1c <7.0% represents optimal control in non- diabetic patients. Different metrics may apply to specific patient populations. Standards of Medical Care in Diabetes(ADA). Specimen Performing Laboratory Blood [facility] Narrative FASTING:YES Mammo Screening w Cad Bilateral (10/16/2016 4:22 PM) Specimen Performing Laboratory [facility] [place] [address] Narrative PROCEDURE: MAMMO SCREENING W CAD BILATERAL Computer-assisted detection was utilized for the interpretation of this exam. COMPARISON:None. TECHNIQUE:Bilateral digital screening mammogram was performed and interpreted using computer-assisted detection. CLINICAL HISTORY:The patient has no current palpable breast complaints. FINDINGS: Bilateral mammogram demonstrates the breast parenchyma to be scattered fibroglandular densities. A curvilinear density projects over the posterior aspect of the left exaggerated craniocaudal projection in the left craniocaudal projection. The density is compatible either with artifact from of the anterior portion of the skull or possibly an extremely posteriorly placedbreast implant. The technologist noted that the examination was limited due to the patient's ability to cooperate with positioning so that the pectoralis muscles are not seen in the lateral projection to the extent that is normally visible. LEFT:No specific features of malignancy. RIGHT: No specific features of malignancy. IMPRESSION: BI-RADS Category 2. Benign finding(s). Recommend comparison with physical exam and if clinically indicated a repeat craniocaudal view can be performed on to evaluate for the density over the posterior aspect of the craniocaudal projection, as noted above. This facility is accredited by The [employer] for Mammography. A negative x-ray report should not delay biopsy if a dominant or clinically suspicious mass is present. Not all cancers are identified by x-ray. [id number] XR Chest 2 Vw (10/14/2016 1:57 PM) Specimen Performing Laboratory [facility] [address] [place] [address] Narrative EXAMINATION:XR CHEST 2 VW CLINICAL HISTORY: Pulmonary nodule COMPARISON:CT from 12/29/2015 IMPRESSION: No active disease in the chest. Lungs are clear. Right middle lobe nodule seen on CT from 12/29/2015 is not clearly identified with chest x-ray. Cardiomediastinal silhouette is within normal limits. No effusion or pneumothorax noted. Visualized osseous structures are intact. [facility]-[id number] Procedure Note Hm Interface, Radiology Results Incoming - 10/14/2016 2:14 PM CDT EXAMINATION: XR CHEST 2 VW CLINICAL HISTORY: Pulmonary nodule COMPARISON: CT from 12/29/2015 IMPRESSION: No active disease in the chest. Lungs are clear. Right middle lobe nodule seen on CT from 12/29/2015 is not clearly identified with chest x-ray. Cardiomediastinal silhouette is within normal limits. No effusion or pneumothorax noted. Visualized osseous structures are intact. [facility]-[id number] INJECT TRIGGER POINT, 1 OR 2 (10/08/2016 4:41 PM) Narrative Daryl Pérez MD 10/08/20164:41 PM Trigger Point Injection Date/Time: 10/08/2016 3:01 PM Performed by: DARYL PRÉEZ Authorized by: DARYL PÉREZ Consent: Consent obtained:Written Consent given by:Patient Risks discussed:Allergic reaction, bleeding, infection, pain and nerve damage Alternatives discussed:No treatment, alternative treatment and referral Indications: Indications:Pain relief Location: Therapeutic Trigger Point Injection:Multiple trigger points: 3 or more muscle groups Location: shoulder and neck Shoulder injected:Bilateral trapezius EMG guidance was used for proper localization of injection site using Motor Unit Potential activity for deep or difficult to localize injection sites. Medications administered: 60 mg triamcinolone acetonide 40 mg/mL; 1.5 mL lidocaine 10 mg/mL (1 %) Pre-procedure details: Skin preparation:Alcohol Post-procedure details: Patient tolerance of procedure:Tolerated well, no immediate complications MRI Thoracic Spine Wo Contrast (09/06/2016 2:15 PM) Specimen Performing Laboratory [facility] [address] [place] [address] Narrative EXAMINATION:MRI THORACIC SPINE WO CONTRAST COMPARISON:None CLINICAL HISTORY:M48.06 Spinal stenosislumbar region, M41.50 Other secondary scoliosissite unspecified, pain COMMENTS:Multiplanar MR imaging of the thoracic spine was obtained without contrast material. FINDINGS:There is mild curvature of the mid thoracic spine convex towards the right side. T4-T5 shows mild central spondylosis. T5-T6 shows a small central disc protrusion. The lower thoracic spine shows mild facet disease. The signal within the spinal cord is intact. The thoracic spine shows no acute fracture or subluxation. IMPRESSION:Mild degenerative change in the thoracic spine. Mild curvature. [facility]-[id number] Procedure Note Interface, Radiology Results Incoming - 09/06/2016 2:56 PM CDT EXAMINATION: MRI THORACIC SPINE WO CONTRAST COMPARISON: None CLINICAL HISTORY: M48.06 Spinal stenosis lumbar region, M41.50 Other secondary scoliosis site unspecified, pain COMMENTS: Multiplanar MR imaging of the thoracic spine was obtained without contrast material. FINDINGS: There is mild curvature of the mid thoracic spine convex towards the right side. T4-T5 shows mild central spondylosis. T5-T6 shows a small central disc protrusion. The lower thoracic spine shows mild facet disease. The signal within the spinal cord is intact. The thoracic spine shows no acute fracture or subluxation. IMPRESSION: Mild degenerative change in the thoracic spine. Mild curvature. [facility]-[id number] MRI Cervical Spine Wo Contrast (09/06/2016 1:50 PM) Specimen Performing Laboratory [facility] [address] [place] [address] Narrative EXAMINATION: MRI CERVICAL SPINE WO CONTRAST CLINICAL HISTORY: M48.06 Spinal stenosislumbar region, M41.50 Other secondary scoliosissite unspecified, pain COMPARISON:MRI cervical spine 11/15/2011 TECHNIQUE: Multiplanar multisequence noncontrast enhanced examination was performed of the cervical spine. FINDINGS: No fracture.There is reversal normal cervical lordosis centered at C4-5. No suspicious osseous abnormalities. Modic type II endplate changes C4, C5, and C6. Minimal marrow edema extends into the left pedicle of C5 and C6. The cervicomedullary junction is unremarkable. No cord signal abnormality identified. No masses are present in the visualized prevertebral soft tissues. Axial images through the disc spaces demonstrate the following: C1-C2: No significant spinal canal stenosis. C2-C3: Disc desiccation. No significant spinal canal or neural foraminal stenosis. Mild left greater than right uncovertebral facet arthropathy. C3-C4: Disc desiccation. No significant spinal canal stenosis. Mild to moderate uncovertebral and facet arthropathy, without significant neural foraminal stenosis. C4-C5: Small disc bulge and superimposed small right paracentral disc protrusion, without significant spinal canal stenosis. Uncovertebral and facet arthropathy without significant neural foraminal stenosis. C5-C6: Small disc bulge indents ventral thecal sac and abuts the ventral spinal cord, with mild spinal canal stenosis. Mild neural foraminal stenosis bilaterally secondary to uncovertebral and facet arthropathy. C6-C7: Small disc bulge indents the ventral thecal sac, with mild spinal canal stenosis. Uncovertebral and facet arthropathy without significant neural foraminal stenosis. C7-T1: No significant posterior disc disease, spinal canal or neural foraminal stenosis. IMPRESSION: Multilevel degenerative changes of the cervical spine,, most notably at C3-C6, where there is reversal of normal cervical lordosis. Few levels of mild neural foraminal stenosis and mild spinal canal stenosis as above. [facility]-[id number] Procedure Note Hm Interface, Radiology Results - 09/06/2016 2:30 PM CDT EXAMINATION: MRI CERVICAL SPINE WO CONTRAST CLINICAL HISTORY: M48.06 Spinal stenosis lumbar region, M41.50 Other secondary scoliosis site unspecified, pain COMPARISON: MRI cervical spine 11/15/2011 TECHNIQUE: Multiplanar multisequence noncontrast enhanced examination was performed of the cervical spine. FINDINGS: No fracture. There is reversal normal cervical lordosis centered at C4-5. No suspicious osseous abnormalities. Modic type II endplate changes C4, C5, and C6. Minimal marrow edema extends into the left pedicle of C5 and C6. The cervicomedullary junction is unremarkable. No cord signal abnormality identified. No masses are present in the visualized prevertebral soft tissues. Axial images through the disc spaces demonstrate the following: C1-C2: No significant spinal canal stenosis. C2-C3: Disc desiccation. No significant spinal canal or neural foraminal stenosis. Mild left greater than right uncovertebral facet arthropathy. C3-C4: Disc desiccation. No significant spinal canal stenosis. Mild to moderate uncovertebral and facet arthropathy, without significant neural foraminal stenosis. C4-C5: Small disc bulge and superimposed small right paracentral disc protrusion, without significant spinal canal stenosis. Uncovertebral and facet arthropathy without significant neural foraminal stenosis. C5-C6: Small disc bulge indents ventral thecal sac and abuts the ventral spinal cord, with mild spinal canal stenosis. Mild neural foraminal stenosis bilaterally secondary to uncovertebral and facet arthropathy. C6-C7: Small disc bulge indents the ventral thecal sac, with mild spinal canal stenosis. Uncovertebral and facet arthropathy without significant neural foraminal stenosis. C7-T1: No significant posterior disc disease, spinal canal or neural foraminal stenosis. IMPRESSION: Multilevel degenerative changes of the cervical spine,, most notably at C3-C6, where there is reversal of normal cervical lordosis. Few levels of mild neural foraminal stenosis and mild spinal canal stenosis as above. [facility]-[id number] MRI Lower Extremity Joint Wo Contrast Right (09/06/2016 1:20 PM) Specimen Performing Laboratory [facility] [address] [place] [address] Narrative EXAMINATION:MRI LOWER EXTREMITY JOINT WO CONTRAST RIGHT CLINICAL HISTORY:R22.41 Localized swellingmass and lumpright lower limb, pain COMPARISON: 11/15/2011 TECHNIQUE: Multisequence multiplanar MRI of the hips was performed without contrast. IMPRESSION: 1.There are advanced degenerative changes of the lower lumbosacral spine. Correlate with lumbar spine MRI if clinically warranted. 2.The hips are intact. No femoral head avascular necrosis or femoral neck stress fractures. Hip joint fluid is physiologic. No significant osteoarthritis in the hips. 3.Degenerative changes of the sacroiliac joints are noted which have slightly progressed compared to the study of 2011. Endplate Modic changes in the lower lumbosacral spine. The seminal also progressed. 4.The gluteal tendons and hamstring tendons are intact. No masses or fluid collections. 5.No suspicious soft tissue masses, intramuscular masses or osseous lesions are identified. 6.There is interstitial edema within the medial left gluteus keira muscle and to a lesser extent the right gluteus keira muscle near the sacrum and coccyx seen on series 2 image #8. This is nonspecific. Neurogenic edema from this disease in the spine to consideration. No other muscle signal abnormalities. Procedure Note [facility], Radiology Results - 09/06/2016 2:58 PM CDT EXAMINATION: MRI LOWER EXTREMITY JOINT WO CONTRAST RIGHT CLINICAL HISTORY: R22.41 Localized swelling mass and lump right lower limb, pain COMPARISON: 11/15/2011 TECHNIQUE: Multisequence multiplanar MRI of the hips was performed without contrast. IMPRESSION: 1. There are advanced degenerative changes of the lower lumbosacral spine. Correlate with lumbar spine MRI if clinically warranted. 2. The hips are intact. No femoral head avascular necrosis or femoral neck stress fractures. Hip joint fluid is physiologic. No significant osteoarthritis in the hips. 3. Degenerative changes of the sacroiliac joints are noted which have slightly progressed compared to the study of 2012. Endplate Modic changes in the lower lumbosacral spine. The seminal also progressed. 4. The gluteal tendons and hamstring tendons are intact. No masses or fluid collections. 5. No suspicious soft tissue masses, intramuscular masses or osseous lesions are identified. 6. There is interstitial edema within the medial left gluteus keira muscle and to a lesser extent the right gluteus keira muscle near the sacrum and coccyx seen on series 2 image #8. This is nonspecific. Neurogenic edema from this disease in the spine to consideration. No other muscle signal abnormalities. XR Spine [facility] 2-3 Views (08/21/2016 1:00 PM) Specimen Performing Laboratory [facility] [address] [place] [address] Narrative AP lateral scoliotic deformity was reviewed with coronal shift centimeters and 14 cm positive sagittal imbalance. There is a 52 pelvic incidence with 5 of lumbar lordosis and 0 of thoracolumbar kyphosis after 07/11/2016 Insurance Payer Benefit Plan / Group Subscriber ID Type Phone Address MEDICARE MEDICARE PART A AND B xxxxxxxxxx Medicare [place], [place] BCBS BCBS PAR/TRAD PLAN xxxxxxxxxxxx Indemnity Guarantor Name Account Type Relation to Date of Phone Billing Patient Address ARIANNE AMBRIZ Personal/Family Self 1945 Home: [address] [place] [address] [phone] [address]
--- OUTSIDE RECORDS SUMMARY | 2017-07-12 21:13 | XMS REPORT ---
:1945 Author Organization [facility] Address [address] [place] [id number] Care Team Providers Name Role Phone RAEANN STEWARD Unavailable Unavailable Problems This patient has no known problems. Allergies, Adverse Reactions, Alerts This patient has no known allergies or adverse reactions. Medications This patient has no known medications. Results Test Description Test Time Test Comments Text Results Atomic Results Result Comments EDISON CARRILLO, 2016-12-11 What level(s) should be FINAL REPORT LUMBAR, INITIAL 08:42:00 performed->L4-5Reason for PATIENT ID: exam:->COMPRESSION FRACTURE [id number] HISTORY: L4 and L5 wedge vertebral compression [...] No immediate complications. Total flouroscopy time: 9.7 minsEstimated dose reported as (Ka,r): 619 mGy Signed: Driss Dominique MDReport Verified Date/Time: 12/11/2016 08:42:31 Reading Location: [place] [address] Angio Body Reading Room AND CREATININE 2016-12-08 06:18:00 Test Item Value Reference Range Comments BLOOD UREA NITROGEN 14 mg/dL 7-21 (BEAKER) (test niou=835) CREATININE (BEAKER) (test 0.58 mg/dL 0.57-1.25 vtqc=135) EGFR (BEAKER) (test 102 mL/min/1.73 sq m ESTIMATED GFR IS NOT rpyu=7223) ACCURATE CREATININE CLEARANCE IN PREDICTING GLOMERULAR FILTRATION RATE. ESTIMATED GFR IS NOT APPLICABLE FOR DIALYSIS PATIENTS. CBC (HEMOGRAM ONLY)2016-12-08 05:52:00 Test Item Value Reference Range Comments WHITE BLOOD CELL COUNT (BEAKER) (test aaxt=621) 9.9 K/ L 3.5-10.5 RED BLOOD CELL COUNT (BEAKER) (test tohu=585) 3.95 M/ L 3.93-5.22 HEMOGLOBIN (BEAKER) (test egqn=188) 11.9 GM/DL 11.2-15.7 HEMATOCRIT (BEAKER) (test ljtf=623) 36.8 % 34.1-44.9 MEAN CORPUSCULAR VOLUME (BEAKER) (test xurq=091) 93.2 fL 79.4-94.8 MEAN CORPUSCULAR HEMOGLOBIN (BEAKER) (test 30.1 pg 25.6-32.2 paxl=262) MEAN CORPUSCULAR HEMOGLOBIN CONC (BEAKER) (test 32.3 GM/DL 32.2-35.5 irln=763) RED CELL DISTRIBUTION WIDTH (BEAKER) (test 13.5 % 11.7-14.4 dano=669) PLATELET COUNT (BEAKER) (test xwjj=799) 282 K/CU MM 150-450 MEAN PLATELET VOLUME (BEAKER) (test pvde=586) 10.4 fL 9.4-12.3 NUCLEATED RED BLOOD CELLS (BEAKER) (test 0 /100 WBC 0-0 ufkl=030) BASIC METABOLIC [id number] 06:49:00 Test Item Value Reference Range Comments SODIUM (BEAKER) (test 136 meq/L 136-145 iaeu=234) POTASSIUM (BEAKER) (test 4.0 meq/L 3.5-5.1 qvan=599) CHLORIDE (BEAKER) (test 103 meq/L 98-107 uqad=964) CO2 (BEAKER) (test 27 meq/L 22-29 ggcu=511) BLOOD UREA NITROGEN 15 mg/dL 7-21 (BEAKER) (test dtmz=706) CREATININE (BEAKER) (test 0.60 mg/dL 0.57-1.25 yciu=709) GLUCOSE RANDOM (BEAKER) 96 mg/dL 70-105 (test vlzs=524) CALCIUM (BEAKER) (test 9.7 mg/dL 8.4-10.2 jpws=236) EGFR (BEAKER) (test 98 mL/min/1.73 sq m ESTIMATED GFR IS NOT onwi=1777) ACCURATE CREATININE CLEARANCE IN PREDICTING GLOMERULAR FILTRATION RATE. ESTIMATED GFR IS NOT APPLICABLE FOR DIALYSIS PATIENTS. PROTHROMBIN TIME/[id number] 06:31:00 Test Item Value Reference Range Comments PROTIME (BEAKER) (test mtps=067) 13.4 seconds 11.7-14.7 INR (BEAKER) (test gbne=717) 1.0 <=5.9 RECOMMENDED COUMADIN/WARFARIN INR THERAPY RANGESSTANDARD DOSE: 2.0 - 3.0 Includes: PROPHYLAXIS forvenous thrombosis, systemic embolization; TREATMENT for venous thrombosis and/or pulmonary embolus.HIGH RISK: Target INR is 2.5-3.5 for patients with mechanical heart valves.[id number] 06:31:00 Test Item Value Reference Range Comments PARTIAL THROMBOPLASTIN TIME (BEAKER) (test 26.2 seconds 22.5-36.0 hbac=832) CBC W/PLT COUNT & AUTO [id number] 06:23:00 Test Item Value Reference Range Comments WHITE BLOOD CELL COUNT (BEAKER) (test znim=237) 9.5 K/ L 3.5-10.5 RED BLOOD CELL COUNT (BEAKER) (test gnbw=828) 4.03 M/ L 3.93-5.22 HEMOGLOBIN (BEAKER) (test pfgh=954) 12.3 GM/DL 11.2-15.7 HEMATOCRIT (BEAKER) (test mnnv=885) 37.0 % 34.1-44.9 MEAN CORPUSCULAR VOLUME (BEAKER) (test wvca=858) 91.8 fL 79.4-94.8 MEAN CORPUSCULAR HEMOGLOBIN (BEAKER) (test 30.5 pg 25.6-32.2 zejx=207) MEAN CORPUSCULAR HEMOGLOBIN CONC (BEAKER) (test 33.2 GM/DL 32.2-35.5 eezj=470) RED CELL DISTRIBUTION WIDTH (BEAKER) (test 13.6 % 11.7-14.4 rygt=515) PLATELET COUNT (BEAKER) (test cxmf=306) 297 K/CU MM 150-450 MEAN PLATELET VOLUME (BEAKER) (test mdfa=959) 10.2 fL 9.4-12.3 NUCLEATED RED BLOOD CELLS (BEAKER) (test 0 /100 WBC 0-0 knnl=584) NEUTROPHILS RELATIVE PERCENT (BEAKER) (test 76 % dynp=214) LYMPHOCYTES RELATIVE PERCENT (BEAKER) (test 15 % hxgd=110) MONOCYTES RELATIVE PERCENT (BEAKER) (test 7 % hgbg=400) EOSINOPHILS RELATIVE PERCENT (BEAKER) (test 1 % lflo=129) BASOPHILS RELATIVE PERCENT (BEAKER) (test 1 % wcus=489) NEUTROPHILS ABSOLUTE COUNT (BEAKER) (test 7.15 K/ L 1.56-6.13 qzfh=776) LYMPHOCYTES ABSOLUTE COUNT (BEAKER) (test 1.45 K/ L 1.18-3.74 fokm=079) MONOCYTES ABSOLUTE COUNT (BEAKER) (test 0.70 K/ L 0.24-0.36 hyvc=930) EOSINOPHILS ABSOLUTE COUNT (BEAKER) (test 0.05 K/ L 0.04-0.36 ipbx=484) BASOPHILS ABSOLUTE COUNT (BEAKER) (test 0.05 K/ L 0.01-0.08 scdq=661) IMMATURE GRANULOCYTES-RELATIVE PERCENT (BEAKER) 1 % 0-1 (test nrpx=5690) MYOCARD IMAGING, MULTI, PHARM, [id number] 14:11:00Please do D SPECT camera for this patient Reason for exam:->Chest PainFINAL REPORT PROCEDURE: Rest/Stress MYOCARDIAL PERFUSION SPECT with regadenoson \XA9\ CPT CODE: 62418 INDICATION: Chest pain, acute, nonspecific, low probability CAD HISTORY: Cardiac risk factors: Hypertension. Other cardiovascular history: No reportedCAD. Recent cardiac symptoms: Chest pain. Current cardiovascular-related [...] at rest and 107 beats/min (72 % ofMPHR) at tracer injection. BP was 141/71 mmHg at rest and 145/ 47 mmHg at tracer injection. Stress was stopped for predetermined endpoint. The patient experienced dyspnea; treatment was not required. Preliminary ECG evaluation revealed sinus rhythm at rest and no ischemic changes with stress. ( Final ECG interpretation and other stress and monitoring [...] annual mortality rate) based on the following criterion:- Normal or small myocardial perfusion defect at rest or with stress(JACC. 2012;59(9):857-81.) Signed: Shweta Lockhart Verified Date/Time: 12/04/2016 14:11:13 Reading Location: [address] Reading Room RAD, SPINE, SCOLIOSIS STUDY, 2 OR 3 [id number] 16:17:00Reason for exam:->scoliosis of lumbar spine, RLE weakness/ radiculopathyFINAL REPORT TECHNIQUE: Frontal and lateral erect views of the spine dated 12/03/2016 HISTORY: Scoliosis, right lower extremity weakness COMPARISON: None FINDINGS:There is a 25 degree scoliosis of the thoracolumbar spine with the apex at approximately T12-L1. There is a rotary component to the scoliosis in the lumbar spine. The cervical spine is visualized from the skull base to the top of C6. The cervicothoracic junction is obscured by the patient's shoulders. There are 12 rib bearing and five nonrib -bearing vertebral bodies. There appear to be multiple compression deformitiesin the mid and lower thoracic spine, this is difficult to evaluate on the lateral view given degree of osteopenia. Visualized lungs are clear. Normal bowel gas pattern is visualized. IMPRESSION:25 degree scoliosis of the thoracolumbar spine with a rotary component in the lumbar spine. 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 Signed: Taylor Rodriguez Verified Date/Time: 2016 09:02:27 Reading Location: [address] Neuro Reading Room [id number] 05:45:00 Test Item Value Reference Range Comments MAGNESIUM (BEAKER) (test swky=790) 1.8 mg/dL 1.6-2.6 BASIC METABOLIC [id number] 05:45:00 Test Item Value Reference Range Comments SODIUM (BEAKER) (test 136 meq/L 136-145 dxkd=675) POTASSIUM (BEAKER) (test 3.8 meq/L 3.5-5.1 grir=606) CHLORIDE (BEAKER) (test 102 meq/L 98-107 xkqv=946) CO2 (BEAKER) (test 28 meq/L 22-29 lbfu=039) BLOOD UREA NITROGEN 11 mg/dL 7-21 (BEAKER) (test vidj=146) CREATININE (BEAKER) (test 0.53 mg/dL 0.57-1.25 yabt=675) GLUCOSE RANDOM (BEAKER) 89 mg/dL 70-105 (test hhyv=007) CALCIUM (BEAKER) (test 8.9 mg/dL 8.4-10.2 yjew=929) EGFR (BEAKER) (test 113 mL/min/1.73 sq m ESTIMATED GFR IS NOT qjsj=9442) ACCURATE CREATININE CLEARANCE IN PREDICTING GLOMERULAR FILTRATION RATE. ESTIMATED GFR IS NOT APPLICABLE FOR DIALYSIS PATIENTS. CBC W/PLT COUNT & AUTO [id number] 05:31:00 Test Item Value Reference Range Comments WHITE BLOOD CELL COUNT (BEAKER) (test xhcs=790) 7.7 K/ L 3.5-10.5 RED BLOOD CELL COUNT (BEAKER) (test yfeo=466) 4.03 M/ L 3.93-5.22 HEMOGLOBIN (BEAKER) (test dgol=439) 12.3 GM/DL 11.2-15.7 HEMATOCRIT (BEAKER) (test msex=652) 35.9 % 34.1-44.9 MEAN CORPUSCULAR VOLUME (BEAKER) (test pwoc=045) 89.1 fL 79.4-94.8 MEAN CORPUSCULAR HEMOGLOBIN (BEAKER) (test 30.5 pg 25.6-32.2 efuy=146) MEAN CORPUSCULAR HEMOGLOBIN CONC (BEAKER) (test 34.3 GM/DL 32.2-35.5 knfe=131) RED CELL DISTRIBUTION WIDTH (BEAKER) (test 13.3 % 11.7-14.4 rvkn=482) PLATELET COUNT (BEAKER) (test judk=626) 211 K/CU MM 150-450 MEAN PLATELET VOLUME (BEAKER) (test urvg=351) 10.3 fL 9.4-12.3 NUCLEATED RED BLOOD CELLS (BEAKER) (test 0 /100 WBC 0-0 rwhw=547) NEUTROPHILS RELATIVE PERCENT (BEAKER) (test 68 % jyvn=636) LYMPHOCYTES RELATIVE PERCENT (BEAKER) (test 23 % qkzz=337) MONOCYTES RELATIVE PERCENT (BEAKER) (test 8 % mnuc=010) EOSINOPHILS RELATIVE PERCENT (BEAKER) (test 1 % rgtv=615) BASOPHILS RELATIVE PERCENT (BEAKER) (test 0 % sylz=993) NEUTROPHILS ABSOLUTE COUNT (BEAKER) (test 5.23 K/ L 1.56-6.13 ouwp=469) LYMPHOCYTES ABSOLUTE COUNT (BEAKER) (test 1.73 K/ L 1.18-3.74 ipek=886) MONOCYTES ABSOLUTE COUNT (BEAKER) (test 0.61 K/ L 0.24-0.36 fxic=066) EOSINOPHILS ABSOLUTE COUNT (BEAKER) (test 0.04 K/ L 0.04-0.36 xifu=779) BASOPHILS ABSOLUTE COUNT (BEAKER) (test 0.01 K/ L 0.01-0.08 bsct=698) IMMATURE GRANULOCYTES-RELATIVE PERCENT (BEAKER) 1 % 0-1 (test hgln=1780) TROPONIN [id number] 01:13:00 Test Item Value Reference Range Comments TROPONIN I (BEAKER) (test bcwv=659) < ng/mL 0.00-0.03 Effective 02/15/2014: Reference Range ChangeNew: 0.00-0.03 Previous 0.00- 0.15Troponin I (TnI) levels must be interpreted in the context of the presenting symptoms and the clinical findings. Elevated TnI levels indicate myocardial damage, but are not specific for ischemic heart disease. Elevated TnI levels are seen in patients with other cardiac conditions (including myocarditis and congestive heartfailure), and slight TnI elevations occur in patients with other conditions, including sepsis, renalfailure, acidosis, acute neurological disease, and persistent tachyarrhythmia.TROPONIN [id number] 19:15: 00 Test Item Value Reference Range Comments TROPONIN I (BEAKER) (test ufss=842) 0.01 ng/mL 0.00-0.03 Effective 02/15/2014: Reference Range ChangeNew: 0.00-0.03 Previous 0.00- 0.15Troponin I (TnI) levels must be interpreted in the context of the presenting symptoms and the clinical findings. Elevated TnI levels indicate myocardial damage, but are not specific for ischemic heart disease. Elevated TnI levels are seen in patients with other cardiac conditions (including myocarditis and congestive heartfailure), and slight TnI elevations occur in patients with other conditions, including sepsis, renalfailure, acidosis, acute neurological disease, and persistent tachyarrhythmia.TROPONIN [id number] 12:09: 00 Test Item Value Reference Range Comments TROPONIN I (BEAKER) (test hhfj=528) 0.02 ng/mL 0.00-0.03 Effective 02/15/2014: Reference Range ChangeNew: 0.00-0.03 Previous 0.00- 0.15Troponin I (TnI) levels must be interpreted in the context of the presenting symptoms and the clinical findings. Elevated TnI levels indicate myocardial damage, but are not specific for ischemic heart disease. Elevated TnI levels are seen in patients with other cardiac conditions (including myocarditis and congestive heartfailure), and slight TnI elevations occur in patients with other conditions, including sepsis, renalfailure, acidosis, acute neurological disease, and persistent tachyarrhythmia.[id number] 06:18: 00 Test Item Value Reference Range Comments MAGNESIUM (BEAKER) (test aitn=327) 1.7 mg/dL 1.6-2.6 BASIC METABOLIC [id number] 06:18:00 Test Item Value Reference Range Comments SODIUM (BEAKER) (test 133 meq/L 136-145 cgib=533) POTASSIUM (BEAKER) (test 3.3 meq/L 3.5-5.1 ubrv=110) CHLORIDE (BEAKER) (test 98 meq/L 98-107 eayh=439) CO2 (BEAKER) (test 27 meq/L 22-29 wwyu=651) BLOOD UREA NITROGEN 10 mg/dL 7-21 (BEAKER) (test weyw=342) CREATININE (BEAKER) (test 0.57 mg/dL 0.57-1.25 mxtp=039) GLUCOSE RANDOM (BEAKER) 92 mg/dL 70-105 (test ujyr=251) CALCIUM (BEAKER) (test 8.8 mg/dL 8.4-10.2 kqdf=234) EGFR (BEAKER) (test 104 mL/min/1.73 sq m ESTIMATED GFR IS NOT bygn=5623) ACCURATE CREATININE CLEARANCE IN PREDICTING GLOMERULAR FILTRATION RATE. ESTIMATED GFR IS NOT APPLICABLE FOR DIALYSIS PATIENTS. CBC W/PLT COUNT & AUTO [id number] 05:54:00 Test Item Value Reference Range Comments WHITE BLOOD CELL COUNT (BEAKER) (test epim=068) 9.1 K/ L 3.5-10.5 RED BLOOD CELL COUNT (BEAKER) (test dyse=890) 4.08 M/ L 3.93-5.22 HEMOGLOBIN (BEAKER) (test kxtf=435) 12.3 GM/DL 11.2-15.7 HEMATOCRIT (BEAKER) (test btqc=545) 35.9 % 34.1-44.9 MEAN CORPUSCULAR VOLUME (BEAKER) (test grwc=878) 88.0 fL 79.4-94.8 MEAN CORPUSCULAR HEMOGLOBIN (BEAKER) (test 30.1 pg 25.6-32.2 dgse=829) MEAN CORPUSCULAR HEMOGLOBIN CONC (BEAKER) (test 34.3 GM/DL 32.2-35.5 euil=870) RED CELL DISTRIBUTION WIDTH (BEAKER) (test 13.0 % 11.7-14.4 omuu=947) PLATELET COUNT (BEAKER) (test ybfr=710) 221 K/CU MM 150-450 MEAN PLATELET VOLUME (BEAKER) (test ixrb=193) 10.5 fL 9.4-12.3 NUCLEATED RED BLOOD CELLS (BEAKER) (test 0 /100 WBC 0-0 lcfv=721) NEUTROPHILS RELATIVE PERCENT (BEAKER) (test 73 % appg=665) LYMPHOCYTES RELATIVE PERCENT (BEAKER) (test 18 % isrm=674) MONOCYTES RELATIVE PERCENT (BEAKER) (test 9 % khyr=119) EOSINOPHILS RELATIVE PERCENT (BEAKER) (test 0 % zlir=312) BASOPHILS RELATIVE PERCENT (BEAKER) (test 0 % vabo=422) NEUTROPHILS ABSOLUTE COUNT (BEAKER) (test 6.60 K/ L 1.56-6.13 abds=525) LYMPHOCYTES ABSOLUTE COUNT (BEAKER) (test 1.65 K/ L 1.18-3.74 amwb=089) MONOCYTES ABSOLUTE COUNT (BEAKER) (test 0.77 K/ L 0.24-0.36 jtee=526) EOSINOPHILS ABSOLUTE COUNT (BEAKER) (test 0.02 K/ L 0.04-0.36 fqvb=802) BASOPHILS ABSOLUTE COUNT (BEAKER) (test 0.01 K/ L 0.01-0.08 xxnu=531) IMMATURE GRANULOCYTES-RELATIVE PERCENT (BEAKER) 1 % 0-1 (test vxsa=0400) [id number] 10:28:00 Test Item Value Reference Range Comments MAGNESIUM (BEAKER) (test sihy=988) 1.6 mg/dL 1.6-2.6 BASIC METABOLIC [id number] 10:28:00 Test Item Value Reference Range Comments SODIUM (BEAKER) (test 130 meq/L 136-145 oagv=151) POTASSIUM (BEAKER) (test 3.8 meq/L 3.5-5.1 gtho=532) CHLORIDE (BEAKER) (test 97 meq/L 98-107 tbro=865) CO2 (BEAKER) (test 25 meq/L 22-29 mqqj=437) BLOOD UREA NITROGEN 14 mg/dL 7-21 (BEAKER) (test mink=556) CREATININE (BEAKER) (test 0.64 mg/dL 0.57-1.25 eart=811) GLUCOSE RANDOM (BEAKER) 216 mg/dL 70-105 (test khqq=999) CALCIUM (BEAKER) (test 8.8 mg/dL 8.4-10.2 qgcm=942) EGFR (BEAKER) (test 91 mL/min/1.73 sq m ESTIMATED GFR IS NOT rcmm=2175) ACCURATE CREATININE CLEARANCE IN PREDICTING GLOMERULAR FILTRATION RATE. ESTIMATED GFR IS NOT APPLICABLE FOR DIALYSIS PATIENTS. LIPID [id number] 10:28:00 Test Item Value Reference Range Comments TRIGLYCERIDES (BEAKER) (test okkr=220) 66 mg/dL CHOLESTEROL (BEAKER) (test bceq=539) 170 mg/dL HDL CHOLESTEROL (BEAKER) (test erck=569) 58 mg/dL LDL CHOLESTEROL CALCULATED (BEAKER) (test 99 mg/dL jlym=749) Triglyceride Reference Range: Low Risk <150 Borderline 150- 199 High Risk 200-499 Very High Risk >=500Cholesterol Reference Range: Low Risk <200 Borderline 200-239 High Risk > 240HDL Cholesterol Reference Range: Low Risk >=60 High Risk <40LDL Cholesterol Reference Range: Optimal <100 Near Optimal 100-129 Borderline 130-159 High 160-189 Very High >=190PROTHROMBIN TIME/[id number] 10:22:00 Test Item Value Reference Range Comments PROTIME (BEAKER) (test kftc=170) 14.2 seconds 11.7-14.7 INR (BEAKER) (test sdst=998) 1.1 <=5.9 RECOMMENDED COUMADIN/WARFARIN INR THERAPY RANGESSTANDARD DOSE: 2.0 - 3.0 Includes: PROPHYLAXIS forvenous thrombosis, systemic embolization; TREATMENT for venous thrombosis and/or pulmonary embolus.HIGH RISK: Target INR is 2.5-3.5 for patients with mechanical heart valves.CBC W/PLT COUNT & AUTO [id number] 10:11:00 Test Item Value Reference Range Comments WHITE BLOOD CELL COUNT (BEAKER) (test ikgu=295) 8.9 K/ L 3.5-10.5 RED BLOOD CELL COUNT (BEAKER) (test ihme=276) 4.37 M/ L 3.93-5.22 HEMOGLOBIN (BEAKER) (test prua=966) 13.4 GM/DL 11.2-15.7 HEMATOCRIT (BEAKER) (test gujl=797) 38.4 % 34.1-44.9 MEAN CORPUSCULAR VOLUME (BEAKER) (test zeas=982) 87.9 fL 79.4-94.8 MEAN CORPUSCULAR HEMOGLOBIN (BEAKER) (test 30.7 pg 25.6-32.2 kphm=208) MEAN CORPUSCULAR HEMOGLOBIN CONC (BEAKER) (test 34.9 GM/DL 32.2-35.5 vnfc=828) RED CELL DISTRIBUTION WIDTH (BEAKER) (test 13.0 % 11.7-14.4 nzub=103) PLATELET COUNT (BEAKER) (test vlmt=556) 245 K/CU MM 150-450 MEAN PLATELET VOLUME (BEAKER) (test wrpn=982) 10.3 fL 9.4-12.3 NUCLEATED RED BLOOD CELLS (BEAKER) (test 0 /100 WBC 0-0 uqtc=969) NEUTROPHILS RELATIVE PERCENT (BEAKER) (test 92 % sdqs=535) LYMPHOCYTES RELATIVE PERCENT (BEAKER) (test 7 % inhh=792) MONOCYTES RELATIVE PERCENT (BEAKER) (test 1 % wksx=770) EOSINOPHILS RELATIVE PERCENT (BEAKER) (test 0 % arli=647) BASOPHILS RELATIVE PERCENT (BEAKER) (test 0 % bxjg=506) NEUTROPHILS ABSOLUTE COUNT (BEAKER) (test 8.14 K/ L 1.56-6.13 ddqm=593) LYMPHOCYTES ABSOLUTE COUNT (BEAKER) (test 0.58 K/ L 1.18-3.74 oygr=416) MONOCYTES ABSOLUTE COUNT (BEAKER) (test 0.10 K/ L 0.24-0.36 tpby=929) EOSINOPHILS ABSOLUTE COUNT (BEAKER) (test 0.00 K/ L 0.04-0.36 ztuq=915) BASOPHILS ABSOLUTE COUNT (BEAKER) (test 0.01 K/ L 0.01-0.08 zbtv=595) IMMATURE GRANULOCYTES-RELATIVE PERCENT (BEAKER) 1 % 0-1 (test juvy=5940)
[2017-07-12] MEDS ORDERED: ONDANSETRON 4 MG/2 ML VIAL ONE (23:00)
[2017-07-12] MEDS ORDERED: NA CHLORIDE 0.9% 1,000 ML ONE (23:00)
[2017-07-12 23:12] LABS: Absolute Lymphocytes (CBC) 1.6 K/uL (0.7-4.9); Absolute Monocytes 0.8 K/uL (0.1-1.3); Absolute Neutrophil 6.2 K/uL (1.8-8.0); Eosinophils % 0.5 % (0-4.4); Hematocrit 44.6 % (36.0-45.0); Lymphocytes % 17.9 % (15.3-44.8); MCH 29.5 pg (27.0-35.0); MCV 88.1 fL (80-100); MPV 8.4 fL (7.6-11.3); Monocytes % 9.7 % (3.3-12.3); RBC Red Blood Cell Count 5.05 M/uL (3.86-4.86)
[2017-07-12 23:24] LABS: Bicarbonate 26 mEq/L (21-31); Glucose Level 100 mg/dL (65-120); Lipase 28 U/L (22-51); Potassium 3.4 mEq/L (3.6-5.0); Sodium Level 135 mEq/L (135-145)
[2017-07-12 23:30] LABS: ALT/SGPT 16 IU/L (10-60); AST/SGOT 22 IU/L (10-42); Albumin 4.1 g/dL (3.2-5.5); Alkaline Phosphatase 34 IU/L (42-121); BUN Blood Urea Nitrogen 19 mg/dL (6-20); Bilirubin Direct 0.3 mg/dL (0-0.2); Bilirubin Total 2.2 mg/dL (0.3-1.2); Glomerular Filtration Rate > 90 mL/min (=/>90); Protein, Total 7.4 g/dL (6.0-8.3)
[2017-07-13] MEDS ORDERED: ONDANSETRON 4 MG/2 ML VIAL ONE (00:42)
--- NOTE | 2017-07-13 01:03 | EDPHYS ---
Physician Documentation [facility] Name: Arianne Ambriz Age: 71 yrs Sex: Female : 1945 Arrival Date: 07/12/2017 Time: 21:11 Bed 24 Private MD: ED Physician Eb Lyons HPI: 07/13 00:55 This 71 yrs old Female presents to ER via Wheelchair with complaints of gs Weakness, Vomiting, Abdominal Pain, Chest Pain. 00:55 The patient presents to the emergency department with vomiting, diarrhea. Onset: The gs symptoms/episode began/occurred 2 day(s) ago. Possible causes: unknown. The symptoms are aggravated by nothing. The symptoms are alleviated by nothing. Associated signs and symptoms: Pertinent positives: constipation. Severity of symptoms: At their worst the symptoms were moderate in the emergency department the symptoms have improved moderately. The patient has experienced similar episodes in the past, several times. The patient has not recently seen a physician. Historical: - Allergies: 07/12 21:16 Neurontin; la1 21:16 Stadol; la1 - PMHx: 21:16 Hypertension; GERD; Chronic pain; Back pain; la1 - Immunization history:: Adult Immunizations up to date. - Social history:: Smoking status: Patient/guardian denies using tobacco. ROS: 07/13 00:55 All other systems are negative. gs Exam: 01:00 Head/Face: Normocephalic, atraumatic. Eyes: Pupils equal round and reactive to light, gs extra-ocular motions intact. Lids and lashes normal. Conjunctiva and sclera are non-icteric and not injected. Cornea within normal limits. Periorbital areas with no swelling, redness, or edema. ENT: Nares patent. No nasal discharge, no septal abnormalities noted. Tympanic membranes are normal and external auditory canals are clear. Oropharynx with no redness, swelling, or masses, exudates, or evidence of obstruction, uvula midline. Mucous membranes moist. Neck: Trachea midline, no thyromegaly or masses palpated, and no cervical lymphadenopathy. Supple, full range of motion without nuchal rigidity, or vertebral point tenderness. No Meningismus. Chest/axilla: Normal chest wall appearance and motion. Nontender with no deformity. No lesions are appreciated. Cardiovascular: Regular rate and rhythm with a normal S1 and S2. No gallops, murmurs, or rubs. Normal PMI, no JVD. No pulse deficits. Respiratory: Lungs have equal breath sounds bilaterally, clear to auscultation and percussion. No rales, rhonchi or wheezes noted. No increased work of breathing, no retractions or nasal flaring. Back: No spinal tenderness. No costovertebral tenderness. Full range of motion. Skin: Warm, dry with normal turgor. Normal color with no rashes, no lesions, and no evidence of cellulitis. MS/ Extremity: Pulses equal, no cyanosis. Neurovascular intact. Full, normal range of motion. Neuro: Awake and alert, GCS 15, oriented to person, place, time, and situation. Cranial nerves II-XII grossly intact. Motor strength 5/5 in all extremities. Sensory grossly intact. Cerebellar exam normal. Normal gait. 01:00 Constitutional: The patient appears in no acute distress, alert, awake. 01:00 Abdomen/GI: Palpation: mild abdominal tenderness, in all quadrants, rebound tenderness, is not appreciated. Vital Signs: 07/12 21:16 BP 125 / 100; Pulse 95; Resp 16; Temp 98.0(TE); Pulse Ox 100% on R/A; Weight 62.6 kg; la1 Height 5 ft. 4 in. (162.56 cm); 07/13 00:49 BP 166 / 95; Pulse 88; Resp 18; Temp 98.8; Pulse Ox 98% ; tl3 07/12 21:16 Body Mass Index 23.69 (62.60 kg, 162.56 cm) la1 MDM: 07/12 22:03 Patient medically screened. 07/13 01:00 Differential diagnosis: Nonspecific abd pain, gastritis, pancreatitis, SBO,AAA. Data reviewed: vital signs, nurses notes. Response to treatment: the patient's symptoms have markedly improved after treatment, patient is well hydrated. NO EMESIS, and as a result, I will discharge patient. 07/12 22:10 Order name: Basic Metabolic Panel; Complete Time: 23:48 07/12 22:10 Order name: CBC with Diff; Complete Time: 23:48 07/12 22:10 Order name: Hepatic Function; Complete Time: 23:48 07/12 22:10 Order name: Lipase; Complete Time: 23:48 07/12 22:10 Order name: CT Stone Protocol 07/12 22:10 Order name: IV Saline Lock; Complete Time: 01:29 07/12 22:10 Order name: Labs collected and sent; Complete Time: : 07/12 22:10 Order name: Urine Dipstick-Ancillary (obtain specimen); Complete Time: 01:29 07/12 22:10 Order name: EKG; Complete Time: 22:26 07/12 22:10 Order name: EKG - Nurse/Tech; Complete Time: 00:48 gs Administered Medications: 07/12 23:18 Drug: Zofran 4 mg Route: IVP; Infused Over: 3 mins; Site: right wrist; tl3 07/13 01:30 Follow up: Response: No adverse reaction; Nausea is decreased tl3 07/12 23:18 Drug: NS 0.9% 1000 ml Route: IV; Rate: 1 bolus; Site: right wrist; tl3 07/13 00:20 Follow up: IV Status: Completed infusion; IV Intake: 1000ml tl3 00:47 Drug: Zofran 4 mg Route: IVP; Infused Over: 3 mins; Site: right hand; tl3 01:30 Follow up: Response: No adverse reaction; Nausea is decreased tl3 Disposition: 07/13/17 01:02 Discharged to Home. Impression: Vomiting. - Condition is Stable. - Discharge Instructions: Nausea and Vomiting. - Prescriptions for Zofran 4 mg Oral Tablet - take 1 tablet by ORAL route every 12 hours As needed; 10 tablet. Miralax 17 gram/dose Oral - take 1 packet by ORAL route once daily dilute powder in 8 ounces of water or juice; 1 bottle. - Medication Reconciliation Form, Thank You Letter, Antibiotic Education, Prescription Opioid Use form. - Follow up: Private Physician; When: 2 - 3 days; Reason: Re-evaluation by your physician. Signatures: Dispatcher [employer] EDJohan Tarango RN RN la1 Eb Lyons MD MD gs Lowrey, Tammy, RN RN tl3
--- NOTE | 2017-07-13 01:03 | ER ---
Nurse's Notes [facility] Name: Arianne Ambriz Age: 71 yrs Sex: Female : 1945 Arrival Date: 07/12/2017 Time: 21:11 Bed 24 Private MD: Diagnosis: Vomiting Presentation: 07/12 21:14 Presenting complaint: Patient states: I have been having N/V for the last 4 days with la1 chills and decreased appetite. Pt reports recently being dx with DVT to left leg. Transition of care: patient was not received from another setting of care. 21:14 Method Of Arrival: Wheelchair la1 21:15 Onset of symptoms was July 12, 2017. Care prior to arrival: None. la1 21:15 Acuity: THADDEUS 3 la1 Historical: - Allergies: 21:16 Neurontin; la1 21:16 Stadol; la1 - PMHx: 21:16 Hypertension; GERD; Chronic pain; Back pain; la1 - Immunization history:: Adult Immunizations up to date. - Social history:: Smoking status: Patient/guardian denies using tobacco. Screenin:39 Abuse screen: Denies threats or abuse. Nutritional screening: No deficits noted. tl3 Tuberculosis screening: No symptoms or risk factors identified. Fall Risk None identified. Assessment: 21:39 General: Appears uncomfortable, slender, well groomed, well developed, well nourished, tl3 Behavior is calm, cooperative, appropriate for age. Pain: Complains of pain in back and abdomen. Neuro: Level of Consciousness is awake, alert, obeys commands, Oriented to person, place, time, situation, Appropriate for age. Cardiovascular: Heart tones S1 S2 present Capillary refill < 3 seconds in bilateral fingers. Respiratory: Breath sounds are clear bilaterally. GI: Bowel sounds present X 4 quads. diminished in right upper quadrant, left upper quadrant, right lower quadrant and left lower quadrant. : No signs and/or symptoms were reported regarding the genitourinary system. EENT: No signs and/or symptoms were reported regarding the EENT system. Derm: No signs and/or symptoms reported regarding the dermatologic system. Musculoskeletal: No signs and/or symptoms reported regarding the musculoskeletal system. 21:41 GI: Reports diarrhea, nausea, vomiting, since 4 days. tl3 07/13 00:49 Reassessment: Patient appears in no apparent distress at this time. Patient and/or tl3 family updated on plan of care and expected duration. Pain level reassessed. Patient is alert, oriented x 3, equal unlabored respirations, skin warm/dry/pink. pt resting with at bedside. Vital Signs: 07/12 21:16 BP 125 / 100; Pulse 95; Resp 16; Temp 98.0(TE); Pulse Ox 100% on R/A; Weight 62.6 kg; la1 Height 5 ft. 4 in. (162.56 cm); 07/13 00:49 BP 166 / 95; Pulse 88; Resp 18; Temp 98.8; Pulse Ox 98% ; tl3 07/12 21:16 Body Mass Index 23.69 (62.60 kg, 162.56 cm) la1 ED Course: 07/12 21:11 Patient arrived in ED. do 21:15 Triage completed. la1 21:16 Arm band placed on left wrist. la1 21:17 Aylin Coyne, R[place] is Primary Nurse. tl3 21:31 Eb Lyons MD is Attending Physician. gs 21:39 Resting quietly. Awaiting ED provider evaluation. tl3 21:39 Patient has correct armband on for positive identification. Placed in gown. Bed in low tl3 position. Call light in reach. Adult w/ patient. 21:39 No provider procedures requiring assistance completed. tl3 22:44 CT completed. Patient moved to CT via wheelchair. Patient moved back from CT. jg1 22:47 CT Stone Protocol In Process Unspecified. EDMS 07/13 01:25 IV discontinued, intact, bleeding controlled, No redness/swelling at site. Pressure tl3 dressing applied. Administered Medications: 07/12 23:18 Drug: Zofran 4 mg Route: IVP; Infused Over: 3 mins; Site: right wrist; tl3 07/13 01:30 Follow up: Response: No adverse reaction; Nausea is decreased tl3 07/12 23:18 Drug: NS 0.9% 1000 ml Route: IV; Rate: 1 bolus; Site: right wrist; tl3 07/13 00:20 Follow up: IV Status: Completed infusion; IV Intake: 1000ml tl3 00:47 Drug: Zofran 4 mg Route: IVP; Infused Over: 3 mins; Site: right hand; tl3 01:30 Follow up: Response: No adverse reaction; Nausea is decreased tl3 Intake: 00:20 IV: 1000ml; Total: 1000ml. tl3 Outcome: 01:02 Discharge ordered by . 01:25 Discharged to home via wheelchair. tl3 01:25 Condition: good 01:25 Discharge instructions given to patient, family, Instructed on discharge instructions, follow up and referral plans. medication usage, Demonstrated understanding of instructions, follow-up care, medications, Prescriptions given X 2. 01:27 Patient left the ED. tl3 Signatures: Dispatcher [employer] Jenni Alatorre jg1 Johan Wells, RN RN la1 Kayla Frederick Gregory, MD MD gs Lowrey, Tammy RN RN tl3
[2017-07-13 01:32] VITALS: BP 166/95; TEMP 98.8; O2SAT 98
--- NOTE | 2017-07-13 08:32 | RAD REPORT ---
EXAM DESCRIPTION: CT - Stone Protocol - 07/12/2017 10:47 pm CLINICAL HISTORY: Abdominal pain, nausea and vomiting A preliminary written report was provided at the time of the study, and the report was reviewed prio r to final dictation. COMPARISON: CT February 2017 TECHNIQUE: Axial 5 mm thick images were obtained without oral or IV contrast. The dauka-xk-czag span s the entirety of the system partially obscuring uppermost abdomen and lung bases. All CT scans are performed using dose optimization technique as appropriate and may include automated exposure control or mA/KV adjustment according to patient size. FINDINGS: No hydronephrosis is present and no obstructing ureteral calculi. No suspicious renal mass es. Isodense masses and pyelonephritis are not excluded on a stone protocol CT scan. No urinary bladd er suspicious finding. Imaged portions of the liver, spleen and pancreas show no suspicious findings on non-contrast imaging . No gallbladder or biliary tree abnormality identified. No significant adrenal finding. No gastric dilatation or gastric wall thickening. No dilation of the small bowel. Appendicitis is not suspected. There is a large amount of stool filling the entirety of the colon. Hyperdensity within t he colon could be contrast material from a remote study or possibly ingested medication. No colon mas s identifiable on this study. No measurable colitis or diverticulitis. No hernia, mass or bulky lymphadenopathy noted. No free air, free fluid or inflammatory stranding. Prominent bony degenerative changes are present with a left convex scoliotic curvature. L4 and L5 par tial compression fractures are present having been previously treated with vertebroplasty. IMPRESSION: Constipation pattern with a large amount of stool filling the colon. An active infectiou s/ inflammatory process of the colon is doubtful. No other acute or significant GI process. Isodense masses and pyelonephritis are not excluded on stone protocol technique.
== END 2017-07-13 01:27 | disposition home or self-care (01) ==
LOC: ER 21:09
DX: R11.10 Vomiting, unspecified (principal); I10 Essential (primary) hypertension; Z88.5 Allergy status to narcotic agent; Z88.8 Allergy status to other drugs, medicaments and biological substances
CPT/HCPCS: 36415; 74176; 76377; 80048; 80076; 83690; 85025; 99284; J2405 ×2; J7030

== ENCOUNTER 2017-12-15 10:33 | Inpatient (IN) | payer OTHER, BC ==
--- NOTE | 2017-12-15 11:23 | R.PREADM ---
SCREENING DATE AND TIME 12/15/2017 11:01 (CDT) ANTICIPATED REHAB ADMISSION DATE 12/17/2017 REFERRING FACILITY [facility] REFERRAL DATE AND TIME 12/15/2017 11:01 (CDT) ACUTE ADMIT DATE 12/09/2017 Previous Rehabilitation(s): No. REFERRING PHYSICIAN Vanessa Groves REHAB FACILITY [facility] CLINICAL LIAISON Valeri Irwin PHYSICIAN REVIEWER Dr. Joshua Melendez M.D. MR# [id number] [place] AD[address]ESS [address] [place] [address] PHONE [facility] [id number] DATE OF 1945 AGE 72 SSN# [id number] GENDER female MARITAL STATUS Unknown RACE white ADMIT FROM 02 - [facility] PRE-HOSPITAL LIVING SETTING 01 - Home (private home/apt. board/care, assisted living, penitentiary, transitional living) HOME TYPE AND DETAILS Type of home: single family house # of steps to enter the residence: 0 # of steps within the residence: 0 # of levels in the residence: 1 PRE-HOSPITAL LIVING WITH Family/Relatives FAMILY SUPPORT Yes PRIMARY FAMILY CONTACT NAME Gallo Ambriz PRIMARY FAMILY CONTACT PHONE PHONE PRIMARY FAMILY CONTACT ON ADM.? no IS PRIMARY FAMILY CONTACT AUTH. REP.? no 1ST EMERGENCY CONTACT Gallo Ambriz 1ST CONTACT PHONE PHONE 1ST CONTACT ON ADM. no IS 1ST CONTACT AUTH. REP.? no PHONE 2ND CONTACT ON ADM.? no PATIENT EMPLOYMENT STATUS Retired (for age) PATIENT EMPLOYER No Employer PAYOR INFORMATION: 1ST PAYOR NAME MEDICARE 1ST PAYOR PHONE 1ST PAYOR INJURY/ILLNESS DUE TO ACCIDENT? No ANOTHER REPUBLICAN RESPONSIBLE? No PRIMARY REHAB/ACUTE DIAGNOSIS: Vertebral Fx ONSET DATE 12/09/2017 REHAB IMPAIRMENT CATEGORY (AWA): 07 Fracture of LE (FracLE) MEETS 60% rule PRIMARY DIAGNOSIS-RELATED SURGERIES: No surgeries related to the primary diagnosis were performed. SUMMARY OF ACUTE HOSPITALIZATION: Pt. is a 72 yo Right-handed white female. On 12/09/2017 she was admitted to [facility] with diagnosis Vertebral Fx. Her impairment category is Orthopaedic Disorders 08 - Pelvic Fracture (08.3). Pre-morbidly, Pt. was independent/mod-I in Self-Care, Sphincter Control, Transfers Control, Communica tion, Social Cognition, and Locomotion; and she had good Sphincter Control. Currently, she has deficits of Balance, Self-Care, Endurance, Safety Awareness, Transfers Control, Co mmunication, Social Cognition, and Locomotion. Pt. is now referred to [facility] for acute in-patient rehabilitation in order to maximize patient's functional independence in activities of daily living, strength, ROM, and mobi lity. Patient has realistic goal of being discharged at assistance level 6-Holly to reside at Home with Fam юлия/Relatives. MEDICATION ALLERGIES: No Known Drug Allergies (NKDA) ENVIRONMENTAL ALLERGIES: - Substance Allergies None Known - Other Allergies None Known CODE STATUS: Full code WEIGHT/HEIGHT/BMI: WEIGHT 129 lbs HEIGHT 5' 4" BMI 22.1 DIET: - Diet Type Regular - Diet - Solid Texture Regular - Diet - Liquid Texture Regular - Tube Feed N/A REVIEW OF SYSTEMS: - Gen Alert and awake Lying in bed No apparent distress Oriented to: person, time, and place - Vital Signs Vital signs stable, afebrile - CVS RRR VITAL SIGNS Temperature: 99.9 F SBP/DBP: 159/82 Pulse: 80 Resp: 16 Vital signs stable, afebrile CURRENT SPHINCTER CONTROL: Pre-hospital bladder status: continent # of bladder accidents in the last 7 days prior to screenin Pre-hospital bowel status: continent # of bowel accidents in the last 7 days prior to screenin Last Bowel Movement Date: 12/15/2017 DETAILED CURRENT FUNCTIONAL STATUS: - Bladder accident frequency: Ind - No accidents in the past 7 days - Bowel accident frequency: Ind - No accidents in the past 7 days - Walking score based on distance walked: 1(<=50ft) FUNCTIONAL STATUS: - Self-Care A. Eating Ind sup B. Grooming Ind sup C. Bathing Ind modA D. Dressing - Upper Ind sup E. Dressing - Lower Ind maxA F. Toileting Ind modA - Sphincter Control G: Bladder control Ind Ind H: Bowel control Ind Ind - Transfers Control I. Bed/Chair/Wheelchair Ind modA J. Toilet Ind modA K. Tub/Shower Ind modA - Locomotion L. Walk/Wheelchair (B) Ind maxA M. Stairs Ind ADNO - Communication N. Comprehension (B) Ind Sheng O. Expression (B) Ind Sheng - Social Cognition P. Social Interaction Ind Sheng Q. Problem Solving Ind Sheng R. Memory Ind Sheng - Endurance Poor - Balance Poor - Safety Awareness Poor CURRENT FUNC. DEFICITS: Balance, Self-Care, Endurance, Safety Awareness, Transfers Control, Communication, Social Cognition, and Locomotion THERAPY NOTES FROM ACUTE CARE: Attached. SPECIAL NEEDS: - Safety Concerns Skin breakdown precautions needed due to skin breakdown risk PATIENT NEEDS ACTIVE AND ONGOING THERAPEUTIC INTERVENTION OF MULTIPLE THERAPY DISCIPLINES, INCLUDING: - Occupational Therapy Evaluate and Treat. - Physical Therapy Evaluate and Treat. PATIENT NEEDS CLOSE MEDICAL SUPERVISION BY A REHABILITATION PHYSICIAN FOR: Bowel and Bladder Management Coordination of Treatment Team PATIENT REQUIRES 24X7 REHAB NURSING FOR MEDICAL AND FUNCTIONAL MGT. OF THE FOLLOWING DEFICITS: ADL's Ambulation Bowel and Bladder Management Cognition Communication Disease Management Medication Management Patient/Family Education Providing Safe Environment Transfers PATIENT REQUIRES INTENSIVE, COORDINATED INTERDISCIPLINARY APPROACH TO REHAB: Arranging Home Equipment/Services Discharge Planning Family Intervention/Training Tack Puller Machine/Case Management PATIENT REHAB POTENTIAL: Expected level of measurable improvement will be of a practical value to patient's functional capacit y or adaptations to impairments Has a viable Discharge Plan Medically appropriate; condition is sufficiently stable to participate in intensive rehab program Patient is able and expected to receive 3 hours of individualized therapy daily on at least 5 of ever y 7 days Patient's prognosis for significant practical improvement within a reasonable period of time appears Good DISCHARGE PLAN: - Estimated Length of Stay (days) 14. - Consensus on plan Discharge plan has been discussed with primary caregiver. Patient/Family is in agreement with the gricelda n. Primary caregiver is in agreement with the plan. - Patient/Family Goals Return home with assistance. - Planned Living Setting Upon Discharge Home, to live with Family/Relatives. Transitional Living. RECOMMENDED CARE LEVEL: IRF RECOMMENDATION DETAILS: Recommended Admission to Comprehensive Rehabilitation Program to Increase Functional [place] SCREENER'S COMPLETENESS CONFIRMATION: - Screening Confirmation The patient data collection on this preadmission screening form is finished PHYSICIANS REVIEW AND ADMISSION DETERMINATION Admit - Based on my review of the Pre-Admission Screening results, in my medical judgment and experie nce, I concur with the findings and recommend admission to [facility], as this patient requires an IRF level of care. SIGNATURE PANEL: Clinical Liaison - [electronically] signed by Anu Guzman on 12/15/2017 at 11:15 (CDT) Clinical Liaison - [electronically] signed by Valeri Irwin on 12/15/2017 at 11:16 (CDT) Physician Reviewer - [electronically] signed by Dr. Joshua Melendez M.D. on 12/15/2017 at 11:22 (CDT )
--- OUTSIDE RECORDS SUMMARY | 2017-12-15 15:23 | XMS REPORT | Clinical Summary ---
:1945 Author Organization [facility] Address [address] [place] [address] Phone Care Team Providers Name Role Phone [...] 10 mLs 240 mL 0 12/08/2016 12/08/2017 mg/10 mL (10 mL) (400 mg suspension total) by mouth 2 (two) times daily. senna (SENOKOT) 8.6 mg Take 1 tablet 0 12/08/2016 12/08/2017 tablet (8.6 mg total) by mouth every [...] Problem Noted Date Fracture of lumbar spine (HCC) 11/29/2016 Protein-calorie malnutrition, severe (HCC) 11/29/2016 Acute low back pain 11/29/2016 Physical deconditioning 11/29/2016 Chest pain 11/29/2016 Hypertension Overview: bp controlled with medication x 3 yrs Encounters Date Type Specialty Care Team Description 03/14/2017 Outside Orders Poli Pate MD Loss of weight (Primary Dx);Abdominal pain, epigastric after 12/14/2016 Social History Tobacco Use Types Packs/Day Years Used Date Former Smoker Alcohol Use Drinks/Week oz/Week Comments No Sex Assigned at Date Recorded Not on file Last Filed Vital Signs Not on file Plan of Treatment Not on file Results PERIPHERAL VASCULAR REPORT - SCAN (01/01/2017 12:00 PM)ECHOCARDIOGRAM REPORT - SCAN (01/01/2017 12:00 PM)after 12/14/2016
--- OUTSIDE RECORDS SUMMARY | 2017-12-15 15:23 | XMS REPORT | Clinical Summary ---
:1945 Author Organization [facility] Address [address] [place] [address] Care Team Providers Name Role Phone Asked, [...] 90 4 12/11/2015 Active mcg/actuation inhaler atenolol 25 mg daily. 1 02/21/2016 Active (TENORMIN) 50 MG tablet sucralfate as needed. 3 01/24/2016 Active (CARAFATE) 1 gram tablet alendronate 0 01/09/2017 Active (FOSAMAX) 70 MG tablet esomeprazole Take 40 mg by Active (NexIUM) 40 MG mouth daily capsule before breakfast. ELIQUIS 5 mg 2 08/25/2017 Active tablet oxyCODone Take 1 tablet 180 tablet 0 12/04/2017 03/04/2018 Active (ROXICODONE) 30 MG (30 mg total) immediate release by mouth every tablet 4 (four) hours as needed for moderate pain for up to 90 days. Max Daily Amount: 180 mg megestrol (MEGACE) Take 10 mL 600 mL 2 12/04/2017 03/04/2018 Active 400 mg/10 mL (40 (400 mg total) mg/mL) suspension by mouth 2 (two) times a day for 90 days. oxyCODone Take 1 tablet 10/08/2016 01/06/2017 (ROXICODONE) 30 MG (30 mg total) immediate release by mouth 4 tablet (four) times a day for 90 days. mirtazapine Take 1 tablet 30 tablet 2 11/13/2016 02/04/2017 Discontinued (REMERON) 15 MG (15 mg total) tabletIndications: by mouth Moderate single nightly. current episode of major depressive disorder oxyCODone Take 30 mg by 02/04/2017 Discontinued (ROXICODONE) 30 MG mouth every 6 immediate release (six) hours as tablet needed for moderate pain. oxyCODone Take 1 tablet 02/04/2017 02/27/2017 Discontinued (ROXICODONE) 30 MG (30 mg total) immediate release by mouth every tablet 6 (six) hours as needed for moderate pain for up to 90 days. Max Daily Amount: 120 mg megestrol (MEGACE) Take 5 mL (200 300 mL 2 02/27/2017 05/28/2017 400 mg/10 mL (40 mg total) by mg/mL) suspension mouth 2 (two) times a day for 90 days. oxyCODone Take 1 tablet 180 tablet 02/27/2017 05/20/2017 Discontinued (ROXICODONE) 30 MG (30 mg total) immediate release by mouth every tablet 4 (four) hours as needed for moderate pain for up to 90 days. Max Daily Amount: 180 mg morPHINE (MSIR) 30 Take 1 tablet 180 tablet 05/20/2017 08/18/2017 MG tablet (30 mg total) by mouth every 4 (four) hours as needed for severe pain for up to 90 days. Max Daily Amount: 180 mg megestrol (MEGACE) 1 06/06/2017 07/14/2017 Discontinued 400 mg/10 mL (40 mg/mL) suspension megestrol (MEGACE) Take 10 mL 300 mL 1 07/14/2017 11/25/2017 Discontinued 400 mg/10 mL (40 (400 mg total) mg/mL) suspension by mouth 2 (two) times a day for 30 days. oxyCODone 0 08/15/2017 12/04/2017 Discontinued (ROXICODONE) 30 MG immediate release tablet megestrol (MEGACE) Take 10 mL 600 mL 2 11/25/2017 12/04/2017 Discontinued 400 mg/10 mL (40 (400 mg total) mg/mL) suspension by mouth 2 (two) times a day for 90 days. Active Problems Problem Noted Date Chronic deep vein thrombosis (DVT) of proximal vein of left lower 09/11/2017 extremity Pathological fracture of right radius due to osteoporosis, sequela 04/11/2017 Chronic prescription opiate use 11/07/2016 Bilateral hip bursitis 11/07/2016 Chronic cervical radiculopathy 10/08/2016 Scoliosis 10/08/2016 Myalgia 10/08/2016 Back pain 05/29/2016 Cervicalgia 05/29/2016 Lumbar radicular pain 05/29/2016 Hip pain, chronic 05/29/2016 Lumbar disc disease 05/29/2016 Encounters Date Type Specialty Care Team Description 12/04/2017 Office Visit Physical Medicine and Ananya, Bursitis of other bursa of both hips (Primary Dx); Rehabilitation Daryl Martin MD Chronic prescription opiate use; Scoliosis of thoracolumbar spine, unspecified scoliosis type; Lumbar disc disease; Myalgia; Lumbar radicular pain; Cervicalgia; Back pain, unspecified back location, unspecified back pain laterality , unspecified chronicity 11/25/2017 Refill Physical Medicine and Ananya, Rehabilitation Daryl Martin MD 09/11/2017 Office Visit Physical Medicine and Ananya, Back pain, unspecified back location, unspecified back pain laterality, unspecified chronicity (Primary Dx); Rehabilitation Daryl Martin MD Chronic prescription opiate use; Bursitis of both hips, unspecified bursa; Scoliosis, unspecified scoliosis type, unspecified spinal region; Lumbar disc disease; Myalgia; Chronic cervical radiculopathy; Chronic pain of right hip; Lumbar radicular pain; Cervicalgia 08/11/2017 Telephone Physical Medicine and [place], Rehabilitation Elizabeth Parmar RN 07/14/2017 Refill Physical Medicine and [place], Marquise Flores MA 07/09/2017 Lab Lab Manish Pearson Deep vein thrombosis (DVT) of left lower extremity, unspecified chronicity, unspecified vein; Jr., MD Dyspnea and respiratory abnormalities 07/09/2017 Hospital Encounter Procedural Cardiology Manish Pearson Leg DVT (deep MD Alec venous thromboembolism), acute, unspecified laterality 07/09/2017 Orders Only Intensive Care Manish Pearson Deep vein thrombosis ( DVT) of left lower extremity, unspecified chronicity, unspecified vein (Primary Dx); MD Alec Dyspnea and respiratory abnormalities 07/09/2017 Documentation Intensive Care Manish Pearson Jr., MD 07/02/2017 Transcribe Orders Access Manish Pearson Dyspnea, unspecified type (Primary Dx); MD [...] hips, unspecified bursa; Chronic prescription opiate use 06/12/2017 Hospital Encounter Radiology 06/06/2017 Transcribe Orders Physical Therapy Cathy Mo Decreased mobility (Primary Dx) 05/20/2017 Office Visit Physical Medicine [...] disease 02/28/2017 Orders Only Physical Medicine and Marquise Mohr MA 02/27/2017 Office Visit Physical Medicine and [place]anya Scoliosis, unspecified scoliosis type, unspecified spinal region [...] hips, unspecified bursa; Chronic prescription opiate use after 12/14/2016 Family History Medical History Relation Name Comments [...] Vital Sign Reading Time Taken Blood Pressure 149/93 12/04/2017 11:39 AM CDT Pulse 87 12/04/2017 11:39 AM CDT Temperature - - Respiratory Rate - - Oxygen Saturation - - Inhaled Oxygen Concentration - - Weight - - Height - - Body Mass Index - - Plan of Treatment Date Type Specialty Care Team Description 03/02/2018 Office Visit Physical Medicine and Daryl Pérez Rehabilitation MD [address] [address] Health Maintenance Due Date Last Done Comments COLON CANCER SCREENING 10/27/1993 SHINGRIX VACCINE (#1) 10/27/1993 ZOSTER VACCINE 2003 PNEUMOCOCCAL POLYSACCHARIDE VACCINE AGE 65 AND OVER 10/27/2008 PNEUMOCOCCAL-13 10/27/2008 INFLUENZA VACCINE 10/29/2017 BREAST CANCER SCREENING 10/16/2018 10/16/2016 Procedures Procedure Name Priority Date/Time Associated Diagnosis Comments DRUG SCREEN Routine 09/11/2017 12:00 AM CDT ZZESTIMATED GFR Routine 07/09/2017 3:20 Results for this PM CDT procedure are in the results section. PROTHROMBIN TIME WITH Routine 07/09/2017 3:20 Deep vein thrombosis Results for this INR PM CDT (DVT) of left lower procedure are in extremity, the results unspecified section. chronicity, unspecified vein Dyspnea and respiratory abnormalities HC COMPLETE BLD COUNT Routine 07/09/2017 3:20 Deep vein thrombosis Results for this W/AUTO DIFF PM CDT (DVT) of left lower procedure are in extremity, the results unspecified section. chronicity, unspecified vein Dyspnea and respiratory abnormalities D-DIMER Routine 07/09/2017 3:20 Deep vein thrombosis Results for this PM CDT (DVT) of left lower procedure are in extremity, the results unspecified section. chronicity, unspecified vein Dyspnea and respiratory abnormalities COMPREHENSIVE Routine 07/09/2017 3:20 Deep vein thrombosis Results for this METABOLIC PANEL PM CDT (DVT) of left lower procedure are in extremity, the results unspecified section. chronicity, unspecified vein Dyspnea and respiratory abnormalities US DUPLEX VENOUS LOWER Routine 07/09/2017 11:50 Leg DVT (deep venous Results for this EXTREMITY BILATERAL AM CDT thromboembolism), procedure are in acute, unspecified the results laterality section. AR MD SERVICE REQUIRED Routine 06/16/2017 9:00 ERRONEOUS FOR PMD AM CDT ENCOUNTER--DISREGARD AR EMG,1 Routine 05/20/2017 11:15 Back pain, Results for this EXTREM,NONPARASPINAL AM DRYWALL STRIPPER unspecified back procedure are in location, unspecified the results back pain laterality, section. unspecified chronicity Myalgia AR EMG,1 Routine 05/20/2017 11:15 Back pain, Results for this EXTREM,NONPARASPINAL AM DRYWALL STRIPPER unspecified back procedure are in location, unspecified the results back pain laterality, section. unspecified chronicity Myalgia AR INJECT TRIGGER Routine 05/20/2017 11:15 Back pain, Results for this POINTS, > 3 AM DRYWALL STRIPPER unspecified back procedure are in location, unspecified the results back pain laterality, section. unspecified chronicity Myalgia AR ARTHROCENTESIS Routine 05/20/2017 11:15 Bursitis of both Results for this ASPIR&/INJ MAJOR AM DRYWALL STRIPPER hips, unspecified procedure are in JT/BURSA W/O US bursa the results section. DRUG SCREEN Routine 05/20/2017 12:00 AM DRYWALL STRIPPER AR ARTHROCENTESIS Routine 02/27/2017 5:47 Bursitis of both Results for this ASPIR&/INJ MAJOR PM DRYWALL STRIPPER hips, unspecified procedure are in JT/BURSA W/O US bursa the results section. AR EMG,1 Routine 02/27/2017 5:47 Scoliosis, Results for this EXTREM,NONPARASPINAL PM DRYWALL STRIPPER unspecified scoliosis procedure are in type, unspecified the results spinal region section. Myalgia AR EMG,1 Routine 02/27/2017 5:47 Scoliosis, Results for this EXTREM,NONPARASPINAL PM DRYWALL STRIPPER unspecified scoliosis procedure are in type, unspecified the results spinal region section. Myalgia AR INJECT TRIGGER Routine 02/27/2017 5:47 Scoliosis, Results for this POINTS, > 3 PM DRYWALL STRIPPER unspecified scoliosis procedure are in type, unspecified the results spinal region section. Myalgia DRUG SCREEN Routine 02/27/2017 12:00 AM DRYWALL STRIPPER DRUG SCREEN Routine 02/04/2017 12:00 AM DRYWALL STRIPPER after 12/14/2016 Results Drug Screen (09/11/2017)Only the most recent of4 resultswithin the time period is included. Narrative Performed At Estimated GFR (07/09/2017 3:20 PM) GFR Non Af Amer 70 mL/min/1.73 m2 [facility] DEPARTMENT OF PATHOLOGY AND GENOMIC MEDICINE GFR Af Amer 85 mL/min/1.73 m2 [facility] DEPARTMENT OF Comment: PATHOLOGY AND GENOMIC Chronic kidney disease: <60 mL/min/1.73m2 MEDICINE Kidney failure: <15 mL/min/1.73m2 The estimated GFR is calculated from the IDMS-traceable Modification of Diet in Renal Disease Equation. The accuracy of the calculation is poor when the creatinine is normal. Calculated values >90 mL/min/1.73m2 are not reported. This equation has not been validated in children (<18 years), women, the elderly (>70 years), or ethnic groups other than Caucasians and Americans. Specimen Plasma specimen Performing Organization Address City/State/Zipcode Phone Number [facility] DEPARTMENT OF PATHOLOGY AND [address] [place] [address] Prothrombin time with INR (07/09/2017 3:20 PM) Prothrombin time 13.8 12.0 - 15.0 sec [facility] DEPARTMENT OF PATHOLOGY AND GENOMIC MEDICINE INR 1.0 [facility] DEPARTMENT OF Comment: PATHOLOGY AND GENOMIC The International Normalized Ratio (INR) is a therapeutic MEDICINE monitoring tool for patients who are stable on oral anticoagulant therapy. An INR of 2.0-3.0 is suggested for deep vein thrombosis/pulmonary embolism. Specimen Blood Performing Organization Address City/[facility] Phone Number [facility] OF PATHOLOGY AND [address] [place] [address] D-dimer (07/09/2017 3:20 PM) D-dimer 0.97 (H) 0.00 - 0.40 ug/mL FEU [facility] DEPARTMENT OF Comment: PATHOLOGY AND GENOMIC Units are ug/ml Fibrinogen Equivalent Unit. MEDICINE When combined with low clinical probability, D-dimer [...] trauma, post-operative states, sepsis, and malignancies. Specimen Blood Performing Organization Address City/[facility] Phone Number [facility] DE[facility]MENT OF PATHOLOGY AND [address] [place] [address] CBC with platelet and differential (07/09/2017 3:20 PM) WBC 6.98 4.50 - 11.00 k/uL [facility] DEPARTMENT OF PATHOLOGY AND GENOMIC MEDICINE RBC 4.34 4.20 - 5.50 m/uL [facility] DE[facility]MENT OF PATHOLOGY AND GENOMIC MEDICINE HGB 13.0 12.0 - 16.0 g/dL [facility] DE[facility]MENT OF PATHOLOGY AND GENOMIC MEDICINE HCT 39.4 37.0 - 47.0 % [facility] DE[facility]MENT OF PATHOLOGY AND GENOMIC MEDICINE MCV 90.8 82.0 - 100.0 fL [facility] DEPARTMENT OF PATHOLOGY AND GENOMIC MEDICINE MCH 30.0 27.0 - 34.0 pg [facility] DEPARTMENT OF PATHOLOGY AND GENOMIC MEDICINE MCHC 33.0 31.0 - 37.0 g/dL [facility] DE[facility]MENT OF PATHOLOGY AND GENOMIC MEDICINE RDW - SD 41.1 37.0 - 55.0 fL [facility] DE[facility]MENT OF PATHOLOGY AND GENOMIC MEDICINE MPV 10.3 8.8 - 13.2 fL [facility] OF PATHOLOGY AND GENOMIC MEDICINE Platelet count 178 150 - 400 k/uL [facility] DE[facility]MENT OF PATHOLOGY AND GENOMIC MEDICINE Nucleated RBC 0.00 /100 WBC [facility] DE[facility]MENT OF PATHOLOGY AND GENOMIC MEDICINE Neutrophils 65.5 39.0 - 69.0 % [facility] DE[facility]MENT OF PATHOLOGY AND GENOMIC MEDICINE Lymphocytes 22.2 (L) 25.0 - 45.0 % [facility] DE[facility]MENT OF PATHOLOGY AND GENOMIC MEDICINE Monocytes 9.5 0.0 - 10.0 % [facility] DE[facility]MENT OF PATHOLOGY AND GENOMIC MEDICINE Eosinophils 1.7 0.0 - 5.0 % [facility] DE[facility]MENT OF PATHOLOGY AND GENOMIC MEDICINE Basophils 0.7 0.0 - 1.0 % [facility] DEPARTMENT OF PATHOLOGY AND GENOMIC MEDICINE Immature granulocytes 0.4Comment: 0.0 - 1.0 % [facility] DEPARTMENT OF "Immature PATHOLOGY AND GENOMIC granulocytes" MEDICINE (promyelocytes, myelocytes, metamyelocytes) Specimen Blood Performing Organization Address City/State/Zipcode Phone Number [facility] DEPARTMENT OF PATHOLOGY AND [address] [place] [id number] GENOMIC MEDICINE Comprehensive metabolic panel (07/09/2017 3:20 PM) Sodium 138 135 - 148 mEq/L [facility] DEPARTMENT OF PATHOLOGY AND GENOMIC MEDICINE Potassium 4.0 3.5 - 5.0 mEq/L [facility] DEPARTMENT OF PATHOLOGY AND GENOMIC MEDICINE Chloride 98 98 - 112 mEq/L [facility] DE[facility]MENT OF PATHOLOGY AND GENOMIC MEDICINE CO2 28 24 - 31 mEq/L [facility] DEPARTMENT OF PATHOLOGY AND GENOMIC MEDICINE Anion gap 12 7 - 15 mEq/L [facility] DEPARTMENT OF Comment: PATHOLOGY AND GENOMIC Starting from June , anion gap calculation MEDICINE no longer incorporates potassium. Please note the change. BUN 11 8 - 23 mg/dL [facility] DEPARTMENT OF PATHOLOGY AND GENOMIC MEDICINE Creatinine 0.8 0.5 - 0.9 mg/dL [facility] DE[facility]MENT OF PATHOLOGY AND GENOMIC MEDICINE Glucose 82 65 - 99 mg/dL [facility] DE[facility]MENT OF PATHOLOGY AND GENOMIC MEDICINE Calcium 9.4 8.8 - 10.2 mg/dL [facility] DEPARTMENT OF PATHOLOGY AND GENOMIC MEDICINE Protein 7.2 6.3 - 8.3 g/dL [facility] DEPARTMENT OF Comment: PATHOLOGY AND GENOMIC Wilbur 4.6-7.0 g/dL MEDICINE 1 week 4.4-7.6 g/dL 7 months-1year5.1-7.3 g/dL 1-2 years5.6-7.5 g/dL >3 years6.0-8.0 g/dL 18-150 6.3-8.3 g/dL Albumin 3.8 3.5 - 5.0 g/dL [facility] DEPARTMENT OF PATHOLOGY AND GENOMIC MEDICINE A/G ratio 1.1 0.7 - 3.8 [facility] DEPARTMENT OF PATHOLOGY AND GENOMIC MEDICINE Alkaline phosphatase 47 35 - 104 U/L [facility] DEPARTMENT OF PATHOLOGY AND GENOMIC MEDICINE AST 22 10 - 35 U/L [facility] DEPARTMENT OF PATHOLOGY AND GENOMIC MEDICINE ALT 14 5 - 50 U/L [facility] DE[facility]MENT OF PATHOLOGY AND GENOMIC MEDICINE Total bilirubin 0.9 0.0 - 1.2 mg/dL [facility] DEPARTMENT OF PATHOLOGY AND GENOMIC MEDICINE Specimen Plasma specimen Performing Organization Address City/State/Zipcode Phone Number [facility] DEPARTMENT OF PATHOLOGY AND [address] [place] [address] Pv duplex venous lower extremity (07/09/2017 11:50 AM) Narrative Performed At [facility] Vascular Ultrasound Laboratory Lower Extremity Venous Report [address] [place] [address] Pat.Name:ARIANNE GRIMM Pat.ID:[id number] St.Date: 07/09/2017 Refer.MD:YADI PEARSON MD Exam Time: 10:50:00 AM Study Type:LE Venous Height:64inWeight: 138lb BSA: 1.67 m2 DOBAge:1945,71Y Sex: FEMALESonogrphr: Kasandra Cross RVT Pat. Stat.:OutpatientRoom:OPC 16 TapeVol: SD, CPT - 4: 89347 Echo Event ID:[id number] Order ID:[id number] Reason for Study:Shortness of breath, Hx of [...] Vascular Ultrasound Laboratory Lower Extremity Venous Report [address] [place] [address] Pat.Name: ARIANNE GRIMM Pat.ID: [id number] .Date: 07/09/2017 Refer.MD: YADI PEARSON MD Exam Time: 10:50:00 AM Study Type:LE Venous Height: 64in Weight: 138lb BSA: 1.67 m2 Age: 5 1945,71Y Sex: FEMALE Sonogrphr: Kasandra Cross RVT Pat. Stat.:Outpatient Room: OPC 16 Tape Vol: SD, CPT - 4: 84331 Echo Event ID:[id number] Order ID: [id number] Reason for Study:Shortness of breath, Hx of [...] 07/09/2017 04:26 PM Chago Mera MD, RPVI Performing Organization Address City/State/[facility] Phone Number [facility] [address] [place] [address] Joint/Bursa Injection (05/20/2017 11:15 AM) Narrative Performed At Daryl Pérez MD 05/20/2017 12:50 PM Joint/Bursa Injection Consent given by: patient Timeout: Immediately prior to procedure a time out was called to verify the correct patient, procedure, equipment, instructional support specialist and site/side marked as required Supporting Documentation [...] POINT, 1 OR 2 (05/20/2017 11:15 AM) Narrative Performed At Daryl Pérez MD 05/20/2017 12:50 PM Trigger Point Injection Date/Time: 05/20/2017 12:46 PM Performed by: DARYL PÉREZ. Authorized by: DARYL PÉREZ. Consent: Consent obtained:Written Consent given by:Patient Risks [...] tolerance of procedure:Tolerated well, no immediate complications Joint/Bursa Injection (02/27/2017 5:47 PM) Narrative Performed At Daryl Pérez MD 02/27/20175:47 PM Joint/Bursa Injection Consent given by: patient Timeout: Immediately prior to procedure a time out was called to verify the correct patient, procedure, equipment, instructional support specialist and site/side marked as required Supporting Documentation [...] POINT, 1 OR 2 (02/27/2017 5:47 PM) Narrative Performed At Daryl Pérez MD 02/27/20175:47 PM Trigger Point Injection [...] tolerance of procedure:Tolerated well, no immediate complications after 12/14/2016 Insurance Payer Benefit Plan / Group Subscriber ID Type Phone Address MEDICARE MEDICARE PART A AND B xxxxxxxxxx Medicare [place], [place] BCBS BCBS PAR/TRAD PLAN xxxxxxxxxxxx Indemnity Home: [address] [place], [place] [phone] [phone]
--- OUTSIDE RECORDS SUMMARY | 2017-12-15 15:23 | XMS REPORT ---
:1945 [facility] [address] [place] [address] Dr. Edgar [address] [place] [id number] Care Team Providers Name Role Phone NISHA STEWARD Unavailable Unavailable Problems This patient has no known problems. Allergies, Adverse Reactions, Alerts This patient has no known allergies or adverse reactions. Medications This patient has no known medications. Results Test Description Test Time Test Comments Text Results Atomic Results Result Comments EDISON CARRILLO, 2016-12-11 What level(s) should be FINAL REPORT PATIENT LUMBAR, INITIAL 08:42:00 performed->L4-5Reason for ID: [id number] exam:->COMPRESSION FRACTURE HISTORY: L4 and L5 wedge vertebral compression [...] MDReport Verified Date/Time: 12/11/2016 08:42:31 Reading Location: [facility] P048 Angio Body Reading Room AND CREATININE 2016-12-08 06:18:00 Test Item Value Reference Range Comments BLOOD UREA NITROGEN 14 mg/dL 7-21 (BEAKER) (test plhj=403) CREATININE (BEAKER) (test 0.58 mg/dL 0.57-1.25 iugu=765) EGFR (BEAKER) (test 102 mL/min/1.73 sq m ESTIMATED GFR IS NOT oqno=3125) ACCURATE CREATININE CLEARANCE IN PREDICTING GLOMERULAR FILTRATION RATE. ESTIMATED GFR IS NOT APPLICABLE FOR DIALYSIS PATIENTS. CBC (HEMOGRAM ONLY)2016-12-08 05:52:00 Test Item Value Reference Range Comments WHITE BLOOD CELL COUNT (BEAKER) (test qdyd=475) 9.9 K/ L 3.5-10.5 RED BLOOD CELL COUNT (BEAKER) (test qcwl=045) 3.95 M/ L 3.93-5.22 HEMOGLOBIN (BEAKER) (test ozhb=397) 11.9 GM/DL 11.2-15.7 HEMATOCRIT (BEAKER) (test sela=713) 36.8 % 34.1-44.9 MEAN CORPUSCULAR VOLUME (BEAKER) (test kmok=588) 93.2 fL 79.4-94.8 MEAN CORPUSCULAR HEMOGLOBIN (BEAKER) (test 30.1 pg 25.6-32.2 agxl=439) MEAN CORPUSCULAR HEMOGLOBIN CONC (BEAKER) (test 32.3 GM/DL 32.2-35.5 xxeo=759) RED CELL DISTRIBUTION WIDTH (BEAKER) (test 13.5 % 11.7-14.4 qmlu=282) PLATELET COUNT (BEAKER) (test ivef=870) 282 K/CU MM 150-450 MEAN PLATELET VOLUME (BEAKER) (test shli=002) 10.4 fL 9.4-12.3 NUCLEATED RED BLOOD CELLS (BEAKER) (test 0 /100 WBC 0-0 ntrh=078) BASIC METABOLIC [id number] 06:49:00 Test Item Value Reference Range Comments SODIUM (BEAKER) (test 136 meq/L 136-145 qskb=821) POTASSIUM (BEAKER) (test 4.0 meq/L 3.5-5.1 lyvj=859) CHLORIDE (BEAKER) (test 103 meq/L 98-107 dsos=118) CO2 (BEAKER) (test 27 meq/L 22-29 udao=739) BLOOD UREA NITROGEN 15 mg/dL 7-21 (BEAKER) (test oexn=671) CREATININE (BEAKER) (test 0.60 mg/dL 0.57-1.25 wknk=051) GLUCOSE RANDOM (BEAKER) 96 mg/dL 70-105 (test gtqr=957) CALCIUM (BEAKER) (test 9.7 mg/dL 8.4-10.2 dcvg=659) EGFR (BEAKER) (test 98 mL/min/1.73 sq m ESTIMATED GFR IS NOT gvox=6163) ACCURATE CREATININE CLEARANCE IN PREDICTING GLOMERULAR FILTRATION RATE. ESTIMATED GFR IS NOT APPLICABLE FOR DIALYSIS PATIENTS. PROTHROMBIN [id number] 06:31:00 Test Item Value Reference Range Comments PROTIME (BEAKER) (test kkio=010) 13.4 seconds 11.7-14.7 INR (BEAKER) (test rhrt=986) 1.0 <=5.9 RECOMMENDED COUMADIN/WARFARIN INR THERAPY RANGESSTANDARD DOSE: 2.0 - 3.0 Includes: PROPHYLAXIS forvenous thrombosis, systemic embolization; TREATMENT for venous thrombosis and/or pulmonary embolus.HIGH RISK: Target INR is 2.5-3.5 for patients with mechanical heart valves.[id number] 06:31:00 Test Item Value Reference Range Comments PARTIAL THROMBOPLASTIN TIME (BEAKER) (test 26.2 seconds 22.5-36.0 itvl=441) CBC W/PLT COUNT & AUTO [id number] 06:23:00 Test Item Value Reference Range Comments WHITE BLOOD CELL COUNT (BEAKER) (test zxah=304) 9.5 K/ L 3.5-10.5 RED BLOOD CELL COUNT (BEAKER) (test pfrw=369) 4.03 M/ L 3.93-5.22 HEMOGLOBIN (BEAKER) (test smkc=777) 12.3 GM/DL 11.2-15.7 HEMATOCRIT (BEAKER) (test jswr=848) 37.0 % 34.1-44.9 MEAN CORPUSCULAR VOLUME (BEAKER) (test yfrw=878) 91.8 fL 79.4-94.8 MEAN CORPUSCULAR HEMOGLOBIN (BEAKER) (test 30.5 pg 25.6-32.2 lblg=152) MEAN CORPUSCULAR HEMOGLOBIN CONC (BEAKER) (test 33.2 GM/DL 32.2-35.5 fkry=458) RED CELL DISTRIBUTION WIDTH (BEAKER) (test 13.6 % 11.7-14.4 bkwk=024) PLATELET COUNT (BEAKER) (test smit=867) 297 K/CU MM 150-450 MEAN PLATELET VOLUME (BEAKER) (test tkpi=823) 10.2 fL 9.4-12.3 NUCLEATED RED BLOOD CELLS (BEAKER) (test 0 /100 WBC 0-0 guql=158) NEUTROPHILS RELATIVE PERCENT (BEAKER) (test 76 % rtyi=244) LYMPHOCYTES RELATIVE PERCENT (BEAKER) (test 15 % mslj=442) MONOCYTES RELATIVE PERCENT (BEAKER) (test 7 % fjgr=244) EOSINOPHILS RELATIVE PERCENT (BEAKER) (test 1 % ffxx=950) BASOPHILS RELATIVE PERCENT (BEAKER) (test 1 % chfx=733) NEUTROPHILS ABSOLUTE COUNT (BEAKER) (test 7.15 K/ L 1.56-6.13 whpb=377) LYMPHOCYTES ABSOLUTE COUNT (BEAKER) (test 1.45 K/ L 1.18-3.74 wmrq=959) MONOCYTES ABSOLUTE COUNT (BEAKER) (test 0.70 K/ L 0.24-0.36 bswf=265) EOSINOPHILS ABSOLUTE COUNT (BEAKER) (test 0.05 K/ L 0.04-0.36 ovfv=503) BASOPHILS ABSOLUTE COUNT (BEAKER) (test 0.05 K/ L 0.01-0.08 zgem=403) IMMATURE GRANULOCYTES-RELATIVE PERCENT (BEAKER) 1 % 0-1 (test ssol=4081) MYOCARD IMAGING, MULTI, PHARM, [id number] 14:11:00Please do D SPECT camera for this patient Reason for exam:->Chest PainFINAL REPORT PROCEDURE: Rest/Stress MYOCARDIAL PERFUSION SPECT with regadenoson \XA9\ CPT CODE: [id number] INDICATION: Chest pain, acute, nonspecific, low probability [...] Normal extracardiac tracer distribution. 6. No previous [facility] study for comparison. NONINVASIVE RISK STRATIFICATION: The above findings are considered low risk (<1% annual mortality rate) based on the following criterion:- Normal or small myocardial perfusion defect at rest or with stress(JACC. 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 primary, calcified meningioma Discussion: Multiplanar MR imaging of the brain was provided [id number] IV gadolinium administration using T1, T2, FLAIR, [...] Rodriguez Verified Date/Time: 2016 09:02:27 Reading Location: [facility] B1 C013V Neuro Reading Room [id number] 05:45:00 Test Item Value Reference Range Comments MAGNESIUM (BEAKER) (test jhoy=109) 1.8 mg/dL 1.6-2.6 BASIC METABOLIC [id number] 05:45:00 Test Item Value Reference Range Comments SODIUM (BEAKER) (test 136 meq/L 136-145 iren=881) POTASSIUM (BEAKER) (test 3.8 meq/L 3.5-5.1 fatq=195) CHLORIDE (BEAKER) (test 102 meq/L 98-107 syjv=417) CO2 (BEAKER) (test 28 meq/L 22-29 nxcr=203) BLOOD UREA NITROGEN 11 mg/dL 7-21 (BEAKER) (test zhcx=856) CREATININE (BEAKER) (test 0.53 mg/dL 0.57-1.25 fltf=473) GLUCOSE RANDOM (BEAKER) 89 mg/dL 70-105 (test wusf=388) CALCIUM (BEAKER) (test 8.9 mg/dL 8.4-10.2 ufpg=728) EGFR (BEAKER) (test 113 mL/min/1.73 sq m ESTIMATED GFR IS NOT nguj=6447) ACCURATE CREATININE CLEARANCE IN PREDICTING GLOMERULAR FILTRATION RATE. ESTIMATED GFR IS NOT APPLICABLE FOR DIALYSIS PATIENTS. CBC W/PLT COUNT & AUTO [id number] 05:31:00 Test Item Value Reference Range Comments WHITE BLOOD CELL COUNT (BEAKER) (test ipny=978) 7.7 K/ L 3.5-10.5 RED BLOOD CELL COUNT (BEAKER) (test xmir=345) 4.03 M/ L 3.93-5.22 HEMOGLOBIN (BEAKER) (test ihmc=202) 12.3 GM/DL 11.2-15.7 HEMATOCRIT (BEAKER) (test cexv=141) 35.9 % 34.1-44.9 MEAN CORPUSCULAR VOLUME (BEAKER) (test andh=463) 89.1 fL 79.4-94.8 MEAN CORPUSCULAR HEMOGLOBIN (BEAKER) (test 30.5 pg 25.6-32.2 oqmn=045) MEAN CORPUSCULAR HEMOGLOBIN CONC (BEAKER) (test 34.3 GM/DL 32.2-35.5 syhs=579) RED CELL DISTRIBUTION WIDTH (BEAKER) (test 13.3 % 11.7-14.4 kndd=021) PLATELET COUNT (BEAKER) (test jkyc=433) 211 K/CU MM 150-450 MEAN PLATELET VOLUME (BEAKER) (test hkyz=645) 10.3 fL 9.4-12.3 NUCLEATED RED BLOOD CELLS (BEAKER) (test 0 /100 WBC 0-0 nqem=421) NEUTROPHILS RELATIVE PERCENT (BEAKER) (test 68 % rhvk=310) LYMPHOCYTES RELATIVE PERCENT (BEAKER) (test 23 % ejqx=503) MONOCYTES RELATIVE PERCENT (BEAKER) (test 8 % tebs=436) EOSINOPHILS RELATIVE PERCENT (BEAKER) (test 1 % inuv=207) BASOPHILS RELATIVE PERCENT (BEAKER) (test 0 % xsek=571) NEUTROPHILS ABSOLUTE COUNT (BEAKER) (test 5.23 K/ L 1.56-6.13 sziw=696) LYMPHOCYTES ABSOLUTE COUNT (BEAKER) (test 1.73 K/ L 1.18-3.74 jvfd=555) MONOCYTES ABSOLUTE COUNT (BEAKER) (test 0.61 K/ L 0.24-0.36 smfp=278) EOSINOPHILS ABSOLUTE COUNT (BEAKER) (test 0.04 K/ L 0.04-0.36 divh=433) BASOPHILS ABSOLUTE COUNT (BEAKER) (test 0.01 K/ L 0.01-0.08 zohv=639) IMMATURE GRANULOCYTES-RELATIVE PERCENT (BEAKER) 1 % 0-1 (test nfzt=0267) TROPONIN [id number] 01:13:00 Test Item Value Reference Range Comments TROPONIN I (BEAKER) (test dgvr=200) < ng/mL 0.00-0.03 Effective 02/15/2014: Reference Range [...] acidosis, acute neurological disease, and persistent tachyarrhythmia.TROPONIN [id number] 19:15: 00 Test Item Value Reference Range Comments TROPONIN I (BEAKER) (test qjbo=811) 0.01 ng/mL 0.00-0.03 Effective 02/15/2014: Reference Range [...] acidosis, acute neurological disease, and persistent tachyarrhythmia.TROPONIN [id number] 12:09: 00 Test Item Value Reference Range Comments TROPONIN I (BEAKER) (test dsxw=434) 0.02 ng/mL 0.00-0.03 Effective 02/15/2014: Reference Range [...] renalfailure, acidosis, acute neurological disease, and persistent tachyarrhythmia.[id number] 06:18: 00 Test Item Value Reference Range Comments MAGNESIUM (BEAKER) (test kmfg=728) 1.7 mg/dL 1.6-2.6 BASIC METABOLIC [id number] 06:18:00 Test Item Value Reference Range Comments SODIUM (BEAKER) (test 133 meq/L 136-145 lgqd=804) POTASSIUM (BEAKER) (test 3.3 meq/L 3.5-5.1 rrrh=150) CHLORIDE (BEAKER) (test 98 meq/L 98-107 bphn=285) CO2 (BEAKER) (test 27 meq/L 22-29 qcor=421) BLOOD UREA NITROGEN 10 mg/dL 7-21 (BEAKER) (test ufjv=708) CREATININE (BEAKER) (test 0.57 mg/dL 0.57-1.25 eule=065) GLUCOSE RANDOM (BEAKER) 92 mg/dL 70-105 (test iflw=149) CALCIUM (BEAKER) (test 8.8 mg/dL 8.4-10.2 kdfm=753) EGFR (BEAKER) (test 104 mL/min/1.73 sq m ESTIMATED GFR IS NOT vvje=6578) ACCURATE CREATININE CLEARANCE IN PREDICTING GLOMERULAR FILTRATION RATE. ESTIMATED GFR IS NOT APPLICABLE FOR DIALYSIS PATIENTS. CBC W/PLT COUNT & AUTO [id number] 05:54:00 Test Item Value Reference Range Comments WHITE BLOOD CELL COUNT (BEAKER) (test zkxg=141) 9.1 K/ L 3.5-10.5 RED BLOOD CELL COUNT (BEAKER) (test ebnh=778) 4.08 M/ L 3.93-5.22 HEMOGLOBIN (BEAKER) (test svwv=604) 12.3 GM/DL 11.2-15.7 HEMATOCRIT (BEAKER) (test fwes=252) 35.9 % 34.1-44.9 MEAN CORPUSCULAR VOLUME (BEAKER) (test aamp=257) 88.0 fL 79.4-94.8 MEAN CORPUSCULAR HEMOGLOBIN (BEAKER) (test 30.1 pg 25.6-32.2 vnax=216) MEAN CORPUSCULAR HEMOGLOBIN CONC (BEAKER) (test 34.3 GM/DL 32.2-35.5 uaqo=726) RED CELL DISTRIBUTION WIDTH (BEAKER) (test 13.0 % 11.7-14.4 puni=828) PLATELET COUNT (BEAKER) (test gdhy=005) 221 K/CU MM 150-450 MEAN PLATELET VOLUME (BEAKER) (test edob=307) 10.5 fL 9.4-12.3 NUCLEATED RED BLOOD CELLS (BEAKER) (test 0 /100 WBC 0-0 vmty=499) NEUTROPHILS RELATIVE PERCENT (BEAKER) (test 73 % qqgj=363) LYMPHOCYTES RELATIVE PERCENT (BEAKER) (test 18 % eoxy=512) MONOCYTES RELATIVE PERCENT (BEAKER) (test 9 % mbwb=514) EOSINOPHILS RELATIVE PERCENT (BEAKER) (test 0 % wuqf=197) BASOPHILS RELATIVE PERCENT (BEAKER) (test 0 % xevs=569) NEUTROPHILS ABSOLUTE COUNT (BEAKER) (test 6.60 K/ L 1.56-6.13 bdzh=605) LYMPHOCYTES ABSOLUTE COUNT (BEAKER) (test 1.65 K/ L 1.18-3.74 octs=032) MONOCYTES ABSOLUTE COUNT (BEAKER) (test 0.77 K/ L 0.24-0.36 ivkg=272) EOSINOPHILS ABSOLUTE COUNT (BEAKER) (test 0.02 K/ L 0.04-0.36 arqk=481) BASOPHILS ABSOLUTE COUNT (BEAKER) (test 0.01 K/ L 0.01-0.08 qmut=318) IMMATURE GRANULOCYTES-RELATIVE PERCENT (BEAKER) 1 % 0-1 (test ddqu=2397) [id number] 10:28:00 Test Item Value Reference Range Comments MAGNESIUM (BEAKER) (test waze=995) 1.6 mg/dL 1.6-2.6 BASIC METABOLIC [id number] 10:28:00 Test Item Value Reference Range Comments SODIUM (BEAKER) (test 130 meq/L 136-145 sezm=688) POTASSIUM (BEAKER) (test 3.8 meq/L 3.5-5.1 qvga=710) CHLORIDE (BEAKER) (test 97 meq/L 98-107 rqaf=933) CO2 (BEAKER) (test 25 meq/L 22-29 asnd=178) BLOOD UREA NITROGEN 14 mg/dL 7-21 (BEAKER) (test tcbj=835) CREATININE (BEAKER) (test 0.64 mg/dL 0.57-1.25 ggza=969) GLUCOSE RANDOM (BEAKER) 216 mg/dL 70-105 (test vxyd=759) CALCIUM (BEAKER) (test 8.8 mg/dL 8.4-10.2 vmhq=496) EGFR (BEAKER) (test 91 mL/min/1.73 sq m ESTIMATED GFR IS NOT ylge=4424) ACCURATE CREATININE CLEARANCE IN PREDICTING GLOMERULAR FILTRATION RATE. ESTIMATED GFR IS NOT APPLICABLE FOR DIALYSIS PATIENTS. LIPID [id number] 10:28:00 Test Item Value Reference Range Comments TRIGLYCERIDES (BEAKER) (test krth=177) 66 mg/dL CHOLESTEROL (BEAKER) (test ssuh=059) 170 mg/dL HDL CHOLESTEROL (BEAKER) (test hvuu=323) 58 mg/dL LDL CHOLESTEROL CALCULATED (BEAKER) (test 99 mg/dL ovfr=728) Triglyceride Reference Range: Low Risk <150 Borderline 150- 199 High Risk 200-499 Very High Risk >=500Cholesterol Reference Range: Low Risk <200 Borderline 200-239 High Risk > 240HDL Cholesterol Reference Range: Low Risk >=60 High Risk <40LDL Cholesterol Reference Range: Optimal <100 Near Optimal 100-129 Borderline 130-159 High 160-189 Very High >=190PROTHROMBIN [id number] 10:22:00 Test Item Value Reference Range Comments PROTIME (BEAKER) (test htxr=617) 14.2 seconds 11.7-14.7 INR (BEAKER) (test eqqg=609) 1.1 <=5.9 RECOMMENDED COUMADIN/WARFARIN INR THERAPY RANGESSTANDARD DOSE: 2.0 - 3.0 Includes: PROPHYLAXIS forvenous thrombosis, systemic embolization; TREATMENT for venous thrombosis and/or pulmonary embolus.HIGH RISK: Target INR is 2.5-3.5 for patients with mechanical heart valves.CBC W/PLT COUNT & AUTO [id number] 10:11:00 Test Item Value Reference Range Comments WHITE BLOOD CELL COUNT (BEAKER) (test smgg=463) 8.9 K/ L 3.5-10.5 RED BLOOD CELL COUNT (BEAKER) (test xmiq=851) 4.37 M/ L 3.93-5.22 HEMOGLOBIN (BEAKER) (test bpks=752) 13.4 GM/DL 11.2-15.7 HEMATOCRIT (BEAKER) (test rhnn=371) 38.4 % 34.1-44.9 MEAN CORPUSCULAR VOLUME (BEAKER) (test lxin=614) 87.9 fL 79.4-94.8 MEAN CORPUSCULAR HEMOGLOBIN (BEAKER) (test 30.7 pg 25.6-32.2 unon=195) MEAN CORPUSCULAR HEMOGLOBIN CONC (BEAKER) (test 34.9 GM/DL 32.2-35.5 potf=487) RED CELL DISTRIBUTION WIDTH (BEAKER) (test 13.0 % 11.7-14.4 itzd=655) PLATELET COUNT (BEAKER) (test tvrx=075) 245 K/CU MM 150-450 MEAN PLATELET VOLUME (BEAKER) (test tpky=292) 10.3 fL 9.4-12.3 NUCLEATED RED BLOOD CELLS (BEAKER) (test 0 /100 WBC 0-0 exib=400) NEUTROPHILS RELATIVE PERCENT (BEAKER) (test 92 % smab=584) LYMPHOCYTES RELATIVE PERCENT (BEAKER) (test 7 % bmrj=263) MONOCYTES RELATIVE PERCENT (BEAKER) (test 1 % uuqi=771) EOSINOPHILS RELATIVE PERCENT (BEAKER) (test 0 % jooh=910) BASOPHILS RELATIVE PERCENT (BEAKER) (test 0 % mqdd=692) NEUTROPHILS ABSOLUTE COUNT (BEAKER) (test 8.14 K/ L 1.56-6.13 czkn=876) LYMPHOCYTES ABSOLUTE COUNT (BEAKER) (test 0.58 K/ L 1.18-3.74 owsd=565) MONOCYTES ABSOLUTE COUNT (BEAKER) (test 0.10 K/ L 0.24-0.36 dcri=871) EOSINOPHILS ABSOLUTE COUNT (BEAKER) (test 0.00 K/ L 0.04-0.36 oago=691) BASOPHILS ABSOLUTE COUNT (BEAKER) (test 0.01 K/ L 0.01-0.08 ynir=248) IMMATURE GRANULOCYTES-RELATIVE PERCENT (BEAKER) 1 % 0-1 (test joqj=5085)
[2017-12-15 15:31] VITALS: BMI 22.0
[2017-12-15] MEDS ORDERED: HOME MED 1 EA UNK PO PRN (16:01)
[2017-12-15] MEDS ORDERED: PNEUMOCOCCAL VACCINE 0.5 ML IMVAC ONE (17:00)
[2017-12-15] MEDS: HYDROCODONE/APAP 5/325 MG TAB PO PRN ×2 (17:50→22:07)
[2017-12-15] MEDS: TRAMADOL HCL 50 MG TAB PO PRN (19:59)
[2017-12-15] MEDS: DOCUSATE NA 100 MG CAP PO SCH (20:00)
[2017-12-15 20:39] LABS: Urine Appearance CLEAR; Urine Bilirubin NEGATIVE (NEG); Urine Blood NEGATIVE (NEG); Urine Color YELLOW; Urine Glucose NEGATIVE (NEG); Urine Protein NEGATIVE (NEG); Urine Specific Gravity <=1.005 (1.005-1.030)
[2017-12-15 20:47] LABS: Urine Bacteria <20 /HPF (<20); Urine Culture Reflex Order NOT NEEDED; Urine RBC NONE SEEN /HPF (NONE SEEN)
--- NOTE | 2017-12-16 03:18 | FAST ---
SHIFT START DATE/TIME: 12/15/2017 19:00 (CDT) SHIFT END DATE/TIME: 12/16/2017 07:00 (CDT) NAME BRO GRIMM DATE OF : 1945 DATE OF ADMISSION: 12/15/2017 15:20 (CDT) PHONE: AGE: 72 N# [id number] GENDER: Female ENCOUNTER PHYSICIAN: Dr. Joshua Melendez M.D. ADMISSION DIAGNOSIS: - Orthopaedic Disorders 08 - Pelvic Fracture (08.3) Vertebral Fx. EATING: EATING - STEP 1: Does the patient require assistance when eating? Yes. EATING - STEP 2: Does the patient require the assistance of a helper? Yes. EATING - STEP 3: Does the patient perform half or more of the eating tasks? No. EATING - STEP 4: Does the patient require total assistance to eat, such as the helper holding the utensil and bringing all food and liquids to the mouth? No. EATING - SCORE: 2-MAX GROOMING: Activity did not occur on this shift GROOMING - SCORE: 0-UNK BATHING: Activity did not occur on this shift BATHING - SCORE: 0-UNK DRESSING - UPPER BODY: Patient is not dressing in public clothing ARTICLES SCORE Total number of steps: 0 DRESSING - UPPER BODY - SCORE: 0-UNK DRESSING - LOWER BODY: Patient is not dressing in public clothing ARTICLES SCORE Total number of steps: 0 DRESSING - LOWER BODY - SCORE: 0-UNK TOILETING: Activity did not occur on this shift TOILETING - SCORE: 0-UNK BLADDER MANAGEMENT: Gerlach cares for reyes catheter including emptying drainage bag. BLADDER MANAGEMENT - SCORE: 1-DEP BOWEL MANAGEMENT: Gerlach removes incontinent device (depends, pull ups, etc.); cleans the patient after accident / inco ntinent episode; and, applies new device (depends, pull-ups, padding, etc.). BOWEL MANAGEMENT - SCORE: 1-DEP BOWEL MANAGEMENT - FREQUENCY OF ACCIDENTS: BOWEL MANAGEMENT(FA) - STEP 1: How many accidents has the patient had during the current shift? 2 TRANSFERS: BED, CHAIR, WHEELCHAIR: Activity did not occur on this shift TRANSFERS: BED, CHAIR, WHEELCHAIR - SCORE: 0-UNK TRANSFERS: TOILET: Activity did not occur on this shift TRANSFERS: TOILET - SCORE: 0-UNK TRANSFERS: SHOWER: Activity did not occur on this shift TRANSFERS: SHOWER - SCORE: 0-UNK TRANSFERS: TUB: Activity did not occur on this shift TRANSFERS: TUB - SCORE: 0-UNK LOCOMOTION: WALK: Activity did not occur on this shift LOCOMOTION: WALK - SCORE: 0-UNK LOCOMOTION: WHEELCHAIR: Activity did not occur on this shift LOCOMOTION: WHEELCHAIR - SCORE: 0-UNK COMPREHENSION: COMPREHENSION: TYPE: Both COMPREHENSION - STEP 1: Does the patient require help to understand complex and abstract ideas (such as current events, finan lesvia, discharge planning, medical issues, relationships, etc)? Yes. COMPREHENSION - STEP 2: Does the patient require help to understand questions or statements about basic needs or ideas (such as hunger, thirst, sleep, safety, daily schedule, room location, or discomfort) half or more of the t cyrus? No. COMPREHENSION - STEP 3: How often does the patient need help to understand directions and conversation about basic needs? 10% - 24% of the time COMPREHENSION - SCORE: 4-MIN EXPRESSION EXPRESSION: TYPE: Both EXPRESSION - STEP 1: Does the patient require help expressing complex and abstract ideas (such as current events, finances , discharge planning, medical issues, relationships, etc)? No. EXPRESSION - STEP 2: Does the patient need extra time, require an assistive device (such as augmentive communication syste m or a communication board), OR does s/he have mild difficulty expressing complex and abstract ideas (including mild dysarthria or mild word-find problems)? Yes. EXPRESSION - SCORE: 6-STACIE SOCIAL INTERACTION: SOCIAL INTERACTION - STEP 1: Does the patient require a helper to interact with others in social and therapeutic situations? No. SOCIAL INTERACTION - STEP 2: Does the patient need extra time in social situations, OR does s/he interact with staff, other patien ts, and family members ONLY in structured environments, OR does s/he require medication for social in teraction? Yes, patient needs extra time SOCIAL INTERACTION - SCORE: 6-STACIE PROBLEM SOLVING: PROBLEM SOLVING - STEP 1: Does the patient need help to solve complex problems such as managing a checking account or confronti ng interpersonal problems? Yes. PROBLEM SOLVING - STEP 2: Does the patient solve basic routine problems half or more of the time? Yes. PROBLEM SOLVING - STEP 3: How often does the patient need help to solve basic routine problems? 25%-49% of the time PROBLEM SOLVING - SCORE: 3-MOD MEMORY: MEMORY - STEP 1: Does the patient need help to remember frequently encountered people, daily routines, and executing r equests? Yes. MEMORY - STEP 2: How often does the patient need help to remember frequently encountered people, daily routines, and e xecuting requests? 25% - 49% of the time MEMORY - SCORE: 3-MOD SIGNATURE PANEL: The following modified sections: Eating - Score, Grooming - Score, Bathing - Score, Dressing - Upper Body - Score, Dressing - Lower Body - Score, Toileting - Score, Bladder Management - Score, Bowel Man agement - Score, Transfers: Bed, Chair, Wheelchair - Score, Transfers: Toilet - Score, Transfers: Laurel wer - Score, Transfers: Tub - Score, Locomotion: Walk - Score, Locomotion: Wheelchair - Score, Compre hension - Score, Expression - Score, Social Interaction - Score, Problem Solving - Score, Memory - Sc ore were [electronically] signed by Delia Schultz C.N.AArlin on FriDec 16 2017 03:17:12 [facility]-0500 ( Central Daylight Time)
[2017-12-16] MEDS: HYDROCODONE/APAP 5/325 MG TAB PO PRN ×4 (05:23→16:21)
[2017-12-16] MEDS: ATENOLOL 50 MG TAB PO SCH (05:23)
[2017-12-16 06:08] LABS: Absolute Lymphocytes (CBC) 1.5 K/uL (0.7-4.9); Absolute Monocytes 0.7 K/uL (0.1-1.3); Absolute Neutrophil 4.2 K/uL (1.8-8.0); Basophils % 0.9 % (0-1.3); Eosinophils % 2.5 % (0-4.4); Hematocrit 32.8 % (36.0-45.0); Lymphocytes % 22.2 % (15.3-44.8); MCH 28.6 pg (27.0-35.0); MCV 84.2 fL (80-100); MPV 8.7 fL (7.6-11.3); Monocytes % 10.4 % (3.3-12.3); RBC Red Blood Cell Count 3.89 M/uL (3.86-4.86)
[2017-12-16] MEDS: LISINOPRIL 5 MG TAB PO SCH (07:26)
[2017-12-16] MEDS: TRAMADOL HCL 50 MG TAB PO PRN ×3 (07:27→14:31)
[2017-12-16] MEDS: FERROUS SULFATE 325 MG TAB PO SCH (08:31)
[2017-12-16] MEDS: FE SULF/FA/VIT B COMP & C TAB PO SCH (08:31)
[2017-12-16] MEDS: DOCUSATE NA 100 MG CAP PO SCH ×2 (08:31→19:49)
[2017-12-16] MEDS: LIDOCAINE 5% PATCH TOP SCH (08:31)
--- NOTE | 2017-12-16 08:58 | RAD REPORT ---
EXAM DESCRIPTION: USExtrem Venous W Compress Bil12/16/2017 8:16 am CLINICAL HISTORY: Bilateral leg pain COMPARISON: none FINDINGS: The common femoral, superficial femoral, popliteal and posterior tibial veins bilaterally are compressible and demonstrate augmentation. Doppler demonstrates good flow. IMPRESSION: No evidence of deep venous thrombosis involving either lower extremity.
[2017-12-16 09:11] LABS: Albumin 2.4 g/dL (3.4-5.0); BUN Blood Urea Nitrogen 7 mg/dL (7-18); Bicarbonate 25 mmol/L (21-32); Glucose Level 82 mg/dL (74-106); Magnesium 1.9 mg/dL (1.8-2.4); Potassium 3.6 mmol/L (3.5-5.1); Prealbumin 9.7 mg/dL (20-40); Sodium Level 138 mmol/L (136-145)
[2017-12-16] MEDS: DULOXETINE 20 MG CAP PO SCH (14:41)
--- NOTE | 2017-12-16 18:01 | R.HP ---
FACILITY: [facility] ENCOUNTER DATE AND TIME: 12/16/2017 17:45 (CDT) MR#: [id number] NAME BRO GRIMM ADDRESS: [address] [place] [address]: [place]IP [id number] PHONE: DATE OF : 1945 AGE: 72 SSN# [id number] GENDER: Female DEXTERITY Right-handed MARITAL STATUS Unknown RACE White PRE-HOSPITAL LIVING SETTING 01 - Home (private home/apt. board/care, assisted living, retirement, transitional living) PRE-HOSPITAL LIVING WITH Family/Relatives ENCOUNTER PHYSICIAN: Dr. Joshua Melendez M.D. REFERRING DOCTOR: adrian Groves DATE OF ADMISSION: 12/15/2017 15:20 (CDT) REFERRING FACILITY [facility] HOME TYPE AND DETAILS: Type of home: single family house # of steps to enter the residence: 0 # of steps within the residence: 0 # of levels in the residence: 1 ADMISSION DIAGNOSIS: Vertebral Fx ONSET DATE: 12/09/2017 PRIMARY DIAGNOSIS-RELATED SURGERIES: No surgeries related to the primary diagnosis were performed. HISTORY OF PRESENT ILLNESS (HPI): Pt. is a 72 yo Right-handed white female. On 12/09/2017 she [address] to [facility] with diagnosis Vertebral Fx. Her impairment category is Orthopaedic Disorders 08 - Pelvic Fracture (08.3). Pre-morbidly, Pt. was independent/mod-I in Self-Care, Sphincter Control, Transfers Control, Communica tion, Social Cognition, and Locomotion; and she had good Sphincter Control. Currently, she has deficits of Balance, Self-Care, Endurance, Safety Awareness, Transfers Control, Co mmunication, Social Cognition, and Locomotion. Pt. is now referred to [facility] for acute in-patient rehabilitation in order to maximize patient's functional independence in activities of daily living, strength, ROM, and mobi lity. Patient has realistic goal of being discharged at assistance level 6-Holly to reside at Home with Fam юлия/Relatives. MEDICATION ALLERGIES: No Known Drug Allergies (NKDA) ENVIRONMENTAL ALLERGIES: - Substance Allergies None Known - Other Allergies None Known FAMILY HISTORY: Family history is not contributory. SOCIAL HISTORY: - Home Living Family/Relatives REVIEW OF SYSTEMS: - Gen No Chills Fatigue No Fever - Eyes No Double Vision No itchiness - ENMT Difficulty Swallowing - CVS No Chest Discomfort No Chest Pain No Fatigue No Weight Gain - Resp No Cough No Shortness of Breath - GI Continent No Abdominal Pain No Constipation No Diarrhea - Continent No Kidney Pain No Painful Urination No Urinary Urgency - MSK No Joint Pain No Muscle Cramps Stiffness - Skin No Itching No Rash No Suspicious Lesions - Neuro No Coordination Difficulty No Difficulty with Concentration No Memory Loss No Seizures Weakness - Psych No Anxiety No Depression No HIV Exposure No Persistent Infections No Seasonal Allergies - Endo No Cold/Heat Intolerance No Excessive Hunger No Excessive Thirst No Excessive Urination PHYSICAL EXAM - Gen Alert and awake Lying in bed No apparent distress Oriented to: person, time, and place - Skin No skin breakdown. No abnormalities - Eyes No abnormalities - ENMT No abnormalities - Neck No abnormalities - CVS RRR - Chest Clear - Abd Soft - GI Non distended Deferred - No abnormalities - Ext No significant edema - MSK 4+/5 weakness in both lower extremities. - Neuro 4/5 strength bilaterally lower extremities. - Psych No abnormalities VITAL SIGNS Temperature: 99.9 F SBP/DBP: 159/82 Pulse: 80 Resp: 16 NURSING: - Shower allowing shower - Skin care per protocol ACTIVITIES OOB only with supervision FUNCTIONAL STATUS: - Self-Care A. Eating Ind sup B. Grooming Ind sup C. Bathing Ind modA D. Dressing - Upper Ind sup E. Dressing - Lower Ind maxA F. Toileting Ind modA - Sphincter Control G: Bladder control Ind Ind H: Bowel control Ind Ind - Transfers Control I. Bed/Chair/Wheelchair Ind modA J. Toilet Ind modA K. Tub/Shower Ind modA - Locomotion L. Walk/Wheelchair (B) Ind maxA M. Stairs Ind ADNO - Communication N. Comprehension (B) Ind Sheng O. Expression (B) Ind Sheng - Social Cognition P. Social Interaction Ind Sheng Q. Problem Solving Ind Sheng R. Memory Ind Sheng - Endurance Poor - Balance Poor - Safety Awareness Poor CURRENT FUNC. DEFICITS: Balance, Self-Care, Endurance, Safety Awareness, Transfers Control, Communication, Social Cognition, and Locomotion ASSESSMENT: Pt. is a 72 yo Right-handed white female.On 12/09/2017 she was admitted to [facility] with diagnosis Vertebral Fx.Her impairment category is Orthopaedic Disorders 08 - Pelvic Frac margarita (08.3).Pre-morbidly, Pt. was independent/mod-I in Self-Care, Sphincter Control, Transfers Contro l, Communication, Social Cognition, and Locomotion; and she had good Sphincter Control.Currently, she has deficits of Balance, Self-Care, Endurance, Safety Awareness, Transfers Control, Communication, S ocial Cognition, and Locomotion.Pt. is now referred to [facility] for acute in -patient rehabilitation in order to maximize patient's functional independence in activities of daily living, strength, ROM, and mobility.- Rehab Goal Patient has realistic goal of being discharged at assistance level 6-Holly to reside at Home with Fam юлия/Relatives. REHAB PLAN: - Physical Therapy Decreased range of motion - to improve, our physical therapists will perform initial evaluation of pt 's status upon admission and devise an individualized program for increasing patient's Range of Motio n. Gait dysfunction - to improve, our physical therapists will perform initial evaluation of pt's status upon admission and devise an individualized program for Gait Training, and Wheel Chair mobility Inability to transfer - to improve, our physical therapists will perform initial evaluation of pt's s tatus upon admission and devise an individualized program for Bed mobility Need for home safety evaluation - to improve, our physical therapists will perform initial evaluation of pt's status upon admission and devise an individualized program for Home Evaluation Need in caregiver upon discharge - to improve, our physical therapists will perform initial evaluatio n of pt's status upon admission and devise an individualized program for Caregiver Training New precaution - to improve, our physical therapists will perform initial evaluation of pt's status u amalia admission and devise an individualized program for Patient precaution education Edema - to improve, our physical therapists will perform initial evaluation of pt's status upon admi ssion and devise an individualized program for Elevation Training, and Lymphedema Therapy Poor balance - to improve, our physical therapists will perform initial evaluation of pt's status upo n admission and devise an individualized program for Balance Training Poor endurance - to improve, our physical therapists will perform initial evaluation of pt's status u amalia admission and devise an individualized program for Endurance Training Weakness - to improve, our physical therapists will perform initial evaluation of pt's status upon ad mission and devise an individualized program for Aquatic Therapy, Neuromuscular Reeducation, and Stre ngthening Achieving independence - to improve, our physical therapists will perform initial evaluation of pt's status upon admission and devise an individualized program for Community Reintegration Activities - Occupational Therapy ADL deficits - to improve, our occupation therapists will perform initial evaluation of pt's status u amalia admission and devise an individualized program for Bathing, Bed mobility, Community Reintegration , Cooking, Dressing, Eating, Fine Motor Skills, Grooming, Homemaking, Kitchen Mobility, Laundry, Lisha ent Education, Safety Awareness, Splinting - Positioning, Transfers(Toilet, Tub, Shower), and Wheel C hair Management Cognitive deficits - to improve, our occupation therapists will perform initial evaluation of pt's st atus upon admission and devise an individualized program for Cognition - orientation Need for career based intervention coordinator - to improve, our occupation therapists will perform initial evaluation of pt's s tatus upon admission and devise an individualized program for Caregiver Training Weakness - to improve, our occupation therapists will perform initial evaluation of pt's status upon admission and devise an individualized program for Aquatic Therapy, Balance, Endurance, UE ROM, and U E strengthening MEDICAL PLAN: - Diet Type Start Regular - Diet - Liquid Texture Start Regular - Tube Feed Start N/A - Skin care per protocol - Diet - Solid Texture Regular - Shower shower DISCHARGE PLAN: - Estimated Length of Stay (days) 14. - Consensus on plan Discharge plan has been discussed with primary caregiver. Patient/Family is in agreement with the gricelda n. Primary caregiver is in agreement with the plan. - Patient/Family Goals Return home with assistance. - Planned Living Setting Upon Discharge Home, to live with Family/Relatives. Transitional Living. SIGNATURE PANEL: (CDT)
--- NOTE | 2017-12-16 18:03 | PAPE ---
PATIENT: [facility] MR# [id number] REFERRING DOCTOR adrian Groves EVALUATION DATE AND TIME 12/16/2017 18:00 (CDT) NAME BRO GRIMM DATE OF 1945 AGE 72 PHONE SSN# [id number] GENDER female EVALUATING PHYSICIAN Dr. Joshua Melendez M.D. ADMISSION DIAGNOSIS: Vertebral Fx ONSET DATE 12/09/2017 POST-ADMISSION FUNCTIONAL/MEDICAL STATUS: - Bladder Same accident frequency: Ind - No accidents in the past 7 days - Bowel Same accident frequency: Ind - No accidents in the past 7 days - Walking Same score based on distance walked: 1(<=50ft) STATUS CHANGE EVALUATION: No change in Functional or Medical Status is identified compared with Pre-Admission screening. PATIENT NEEDS CLOSE MEDICAL SUPERVISION BY A REHABILITATION PHYSICIAN FOR: Bowel and Bladder Management Coordination of Treatment Team PATIENT REQUIRES 24X7 REHAB NURSING FOR MEDICAL AND FUNCTIONAL MGT. OF THE FOLLOWING DEFICITS: ADL's Ambulation Bowel and Bladder Management Cognition Communication Disease Management Medication Management Patient/Family Education Providing Safe Environment Transfers PATIENT REQUIRES INTENSIVE, COORDINATED INTERDISCIPLINARY APPROACH TO REHAB: Arranging Home Equipment/Services Discharge Planning Family Intervention/Training Human Resource Management Instructor/Case Management LIST OF IDENTIFIED AND POTENTIAL PROBLEMS: Alteration in leisure activities Bladder, Incontinence Bowel, Incontinence Infection, Actual or Potential Mobility Impaired Pain, Alteration in Comfort Self Care Deficit Skin Integrity, Actual or Potential Urinary Tract Infection (UTI), Actual or Potential PATIENT COULD BE AT RISK FOR COMPLICATIONS FROM ADVERSE MEDICAL CONDITIONS DUE TO HIS/HER COMORBIDITI ES AND THE RIGORS OF THE INTENSIVE REHABILLITATION PROGRAM. METHODS OR INTERVENTIONS TO AVOID COMPLIC ATIONS INCLUDE: - Infection Clinical staff to assess and manage the signs and symptoms of infection including fever, redness, war mth, etc. - Urinary Tract Infection - Falls Patient will be evaluated for Fall Precautions and will be placed on Fall Precautions as indicated pe r protocol. - Skin Breakdown Nursing will assess skin daily using assessment tool and will place on Skin Breakdown Precautions as indicated per protocol. - Pain Clinical staff may employ non-medication methods such as massage, distraction, decrease stimulus, etc . as needed. Clinical staff will assess patient's pain level every shift per protocol to assess and e nsure pain management effectiveness. Medications will be given and the pain level re-assessed. PRELIMINARY PLAN OF CARE: - Physical Therapy Patient needs Physical Therapy for a daily minimum of 1.5 hours at least 5 out of 7 days, to improve: Mobility, Strengthening, Transfers, Stretching, ROM, Endurance, Ability to manage stairs, Gait, and Balance. - Rehabilitation Nursing Patient requires 24x7 Rehabilitation Nursing for: Pain Issues, Identifying and preventing risk factor s, Monitoring and reporting current medical conditions, Assisting with ambulation and transfer, Larisa ting with all ADL-s, Teaching patients about disease process and medications, Family teaching, Provid ing safe environment, Bowel and Bladder Issues, Skin Integrity, and Medication Management. Patient needs Human Resource Management Instructor and/or Case Management for: Discharge Planning, Arranging Home Equipmen t or Services, and Family Interventions. - Dietary and Nutrition Services Patient needs Dietary and Nutrition Services for: Adequate Nutrition, Nutritional Supplements, and Nu tritional Education. - Occupational Therapy Patient needs Occupational Therapy for a daily minimum of 1.5 hours at least 5 out of 7 days, to impr ove Activities of Daily Living, including: Eating, Grooming, Bathing, Dressing, Toileting, Toilet Tra nsfers, Community Reintegration, Higher functional activities, Adaptive Equipment, Splinting, Househo ld Tasks, and Other activities as determined. POTENTIAL FUNCTIONAL GOALS FOR PATIENT TO ACHIEVE BY DISCHARGE: - Safety Precaution Patient will remain free from falls or injury at time of discharge. - Bed Mobility Patient will perform bed mobility at 4-Sheng level of assistance. - Transfers Patient will complete transfers from bed to chair at 4-Sheng level of assistance. - Mobility Patient will ambulate 150 ft with 4-Sheng level of assistance with RW. PATIENT REHAB POTENTIAL Expected level of measurable improvement will be of a practical value to patient's functional capacit y or adaptations to impairments Has a viable Discharge Plan Medically appropriate; condition is sufficiently stable to participate in intensive rehab program Patient is able and expected to receive 3 hours of individualized therapy daily on at least 5 of ever y 7 days Patient's prognosis for significant practical improvement within a reasonable period of time appears Good DISCHARGE PLAN: - Estimated Length of Stay (days) 14. - Consensus on plan Discharge plan has been discussed with primary caregiver. Patient/Family is in agreement with the gricelda n. Primary caregiver is in agreement with the plan. - Patient/Family Goals Return home with assistance. - Planned Living Setting Upon Discharge Home, to live with Family/Relatives. Transitional Living. CONCLUSION ON REHABILITATION NECESSITY: I have evaluated patient's pre-admission functional status and, comparing it to the patient's post-ad mission functional status now, I conclude that the pre-admission assessment was accurate. Patient's c ondition on admission supports the medical necessity of admission to IR[facility]. It is safe to proceed with patient's therapy program. SIGNATURE PANEL: (CDT)
--- NOTE | 2017-12-16 19:26 | FAST ---
ENCOUNTER DATE AND TIME: 12/16/2017 08:00 (CDT) NAME BRO GRIMM DATE OF : 1945 DATE OF ADMISSION: 12/15/2017 15:20 (CDT) PHONE: AGE: 72 SSN# [id number] GENDER: Female ENCOUNTER PHYSICIAN: Dr. Joshua Melendez M.D. ADMISSION DIAGNOSIS: - Orthopaedic Disorders 08 - Pelvic Fracture (08.3) Vertebral Fx. EATING: Activity did not occur on this shift EATING - SCORE: 0-UNK GROOMING: Activity did not occur on this shift GROOMING - SCORE: 0-UNK BATHING: Activity did not occur on this shift BATHING - SCORE: 0-UNK DRESSING - UPPER BODY: Activity did not occur on this shift Patient is not dressing in public clothing ARTICLES SCORE Total number of steps: 0 DRESSING - UPPER BODY - SCORE: 0-UNK DRESSING - LOWER BODY: Activity did not occur on this shift Patient is not dressing in public clothing ARTICLES SCORE Total number of steps: 0 DRESSING - LOWER BODY - SCORE: 0-UNK TOILETING: Activity did not occur on this shift TOILETING - SCORE: 0-UNK BLADDER MANAGEMENT: Activity did not occur on this shift BLADDER MANAGEMENT - SCORE: 7-IND BOWEL MANAGEMENT: Activity did not occur on this shift BOWEL MANAGEMENT - SCORE: 7-IND TRANSFERS: BED, CHAIR, WHEELCHAIR: TRANSFERS: BED, CHAIR, WHEELCHAIR - STEP 1: Does the patient require assistance with bed, chair, or wheelchair transfers? Yes. TRANSFERS: BED, CHAIR, WHEELCHAIR - STEP 2: Does the patient require the assistance of a helper? Yes. TRANSFERS: BED, CHAIR, WHEELCHAIR - STEP 3: How much assistance does the patient require from the helper? Lifting of the patient TRANSFERS: BED, CHAIR, WHEELCHAIR - STEP 4: Does the helper lift the patient ONLY up? ONLY down? Up AND Down? ONLY up. TRANSFERS: BED, CHAIR, WHEELCHAIR - SCORE: 3-MOD TRANSFERS: TOILET: Activity did not occur on this shift TRANSFERS: TOILET - SCORE: 0-UNK TRANSFERS: SHOWER: Activity did not occur on this shift TRANSFERS: SHOWER - SCORE: 0-UNK TRANSFERS: TUB: Activity did not occur on this shift TRANSFERS: TUB - SCORE: 0-UNK LOCOMOTION: WALK: Patient walks less than 50 feet LOCOMOTION: WALK - SCORE: 1-DEP LOCOMOTION: WHEELCHAIR: Activity did not occur on this shift LOCOMOTION: WHEELCHAIR - SCORE: 0-UNK LOCOMOTION: STAIRS: Activity did not occur on this shift LOCOMOTION: STAIRS - SCORE: 0-UNK COMPREHENSION: COMPREHENSION - SCORE: 0-UNK EXPRESSION EXPRESSION - SCORE: 0-UNK SOCIAL INTERACTION: SOCIAL INTERACTION - SCORE: 0-UNK PROBLEM SOLVING: PROBLEM SOLVING - SCORE: 0-UNK MEMORY: MEMORY - SCORE: 0-UNK SIGNATURE PANEL: The following modified sections: Transfers: Bed, Chair, Wheelchair - Score, Transfers: Toilet - Score , Locomotion: Walk - Score, Locomotion: Wheelchair - Score, Locomotion: Stairs - Score were [electron ically] signed by Karl Olivares PT on FriDec 16 2017 19:25:30 T-0500 (Central Daylight Time)
[2017-12-16] MEDS ORDERED: HEPARIN 5000 UNIT/ML 1 ML VIAL SQ SCH (20:00)
[2017-12-16] MEDS: ENSURE ENLIVE 237 ML CAN PO SCH (20:22)
[2017-12-16] MEDS: MELATONIN 3 MG TABLET PO PRN (20:22)
[2017-12-16] MEDS: HYDROCODONE/APAP 10/325 TAB PO PRN (20:22)
--- NOTE | 2017-12-17 02:58 | FAST ---
SHIFT START DATE/TIME: 12/16/2017 19:00 (CDT) SHIFT END DATE/TIME: 12/17/2017 07:00 (CDT) NAME BRO GRIMM DATE OF : 1945 DATE OF ADMISSION: 12/15/2017 15:20 (CDT) PHONE: AGE: 72 N# [id number] GENDER: Female ENCOUNTER PHYSICIAN: Dr. Joshua Melendez M.D. ADMISSION DIAGNOSIS: - Orthopaedic Disorders 08 - Pelvic Fracture (08.3) Vertebral Fx. EATING: EATING - STEP 1: Does the patient require assistance when eating? Yes. EATING - STEP 2: Does the patient require the assistance of a helper? Yes. EATING - STEP 3: Does the patient perform half or more of the eating tasks? Yes. EATING - STEP 4: Does the patient need only supervision, cuing, coaxing OR help to apply an orthosis OR help to cut fo od, open containers, pour liquids, or butter bread? Yes. EATING - SCORE: 5-SUP GROOMING: Comb/brush hair Oral care Wash, rinse, and dry face Wash, rinse, and dry hands GROOMING - STEP 1: Does the patient require assistance when grooming? Yes. GROOMING - STEP 2: Does the patient require the assistance of a helper? Yes. GROOMING - STEP 3: How much assistance does the patient require from the helper? Cuing, coaxing, instructions, or encour agement for completion of grooming GROOMING - SCORE: 5-SUP BATHING: Activity did not occur on this shift BATHING - SCORE: 0-UNK DRESSING - UPPER BODY: Patient is not dressing in public clothing ARTICLES SCORE Total number of steps: 0 DRESSING - UPPER BODY - SCORE: 0-UNK DRESSING - LOWER BODY: Patient is not dressing in public clothing ARTICLES SCORE Total number of steps: 0 DRESSING - LOWER BODY - SCORE: 0-UNK TOILETING: TOILETING - STEP 1: Does the patient require assistance with toileting? Yes. TOILETING - STEP 2: Does the patient require the assistance of a helper? Yes. TOILETING - STEP 3: How much assistance does the patient require from the helper? Hands-on assistance from the helper TOILETING - STEP 4: Of the 3 tasks: 1) Adjusting clothing prior to use, 2) Cleansing of perineal area, 3) Adjusting clot vinicio after use; How many tasks does the patient perform WITHOUT assistance of the helper? One task TOILETING - SCORE: 2-MAX BLADDER MANAGEMENT: BLADDER MANAGEMENT - STEP 1: Does the patient control the bladder completely and intentionally without equipment or devices or med ications, and is always continent? No. BLADDER MANAGEMENT - STEP 2: Does the patient require the assistance of a helper? Yes. BLADDER MANAGEMENT - STEP 3: How much assistance does the patient require from the helper? Patient requires contact assistance fro m the helper BLADDER MANAGEMENT - STEP 4: How much contact assistance does the patient require from the helper? Patient requires minimal assist ance to maintain an external device - by positioning, and the patient performs 75% or more of bladder management tasks, while the helper provides less than 25% of the assistance to position patient on / off bedpan BLADDER MANAGEMENT - SCORE: 4-MIN BLADDER MANAGEMENT - FREQUENCY OF ACCIDENTS: BLADDER MANAGEMENT(FA) - STEP 1: How many accidents has the patient had during the current shift? 0 BOWEL MANAGEMENT: BOWEL MANAGEMENT - STEP 1: Does the patient control bowels completely and intentionally without equipment devices or medications AND is always continent? No. BOWEL MANAGEMENT - STEP 2: Does the patient require the assistance of a helper? Yes. BOWEL MANAGEMENT - STEP 3: How much assistance does the patient require from the helper? Lloyd provides less than 25% assistanc e to position patient on / off bedpan BOWEL MANAGEMENT - SCORE: 4-MIN BOWEL MANAGEMENT - FREQUENCY OF ACCIDENTS: BOWEL MANAGEMENT(FA) - STEP 1: How many accidents has the patient had during the current shift? 0 TRANSFERS: BED, CHAIR, WHEELCHAIR: TRANSFERS: BED, CHAIR, WHEELCHAIR - STEP 1: Does the patient require assistance with bed, chair, or wheelchair transfers? Yes. TRANSFERS: BED, CHAIR, WHEELCHAIR - STEP 2: Does the patient require the assistance of a helper? Yes. TRANSFERS: BED, CHAIR, WHEELCHAIR - STEP 3: How much assistance does the patient require from the helper? Lifting of the legs TRANSFERS: BED, CHAIR, WHEELCHAIR - STEP 4: How many legs does the patient require the helper to lift? both legs TRANSFERS: BED, CHAIR, WHEELCHAIR - SCORE: 3-MOD TRANSFERS: TOILET: TRANSFERS: TOILET - STEP 1: Does the patient require assistance with toilet transfers? Yes. TRANSFERS: TOILET - STEP 2: Does the patient require the assistance of a helper? Yes. TRANSFERS: TOILET - STEP 3: How much assistance does the patient require from the helper? Patient performs half or more of the tr ansferring tasks TRANSFERS: TOILET - STEP 4: Does the patient need only incidental help such as contact guard or steadying during toilet transfer? Yes. TRANSFERS: TOILET - SCORE: 4-MIN TRANSFERS: SHOWER: Activity did not occur on this shift TRANSFERS: SHOWER - SCORE: 0-UNK TRANSFERS: TUB: Activity did not occur on this shift TRANSFERS: TUB - SCORE: 0-UNK LOCOMOTION: WALK: Activity did not occur on this shift LOCOMOTION: WALK - SCORE: 0-UNK LOCOMOTION: WHEELCHAIR: Activity did not occur on this shift LOCOMOTION: WHEELCHAIR - SCORE: 0-UNK COMPREHENSION: COMPREHENSION: TYPE: Both COMPREHENSION - STEP 1: Does the patient require help to understand complex and abstract ideas (such as current events, finan lesvia, discharge planning, medical issues, relationships, etc)? No. COMPREHENSION - STEP 2: Does the patient need extra time, require an assistive device (such as glasses for visual comprehensi on or a hearing aid for auditory comprehension) or does s/he have mild difficulty understanding compl ex and abstract information? Yes. COMPREHENSION - SCORE: 6-STACIE EXPRESSION EXPRESSION: TYPE: Both EXPRESSION - STEP 1: Does the patient require help expressing complex and abstract ideas (such as current events, finances , discharge planning, medical issues, relationships, etc)? No. EXPRESSION - STEP 2: Does the patient need extra time, require an assistive device (such as augmentive communication syste m or a communication board), OR does s/he have mild difficulty expressing complex and abstract ideas (including mild dysarthria or mild word-find problems)? No. EXPRESSION - SCORE: 7-IND SOCIAL INTERACTION: SOCIAL INTERACTION - STEP 1: Does the patient require a helper to interact with others in social and therapeutic situations? No. SOCIAL INTERACTION - STEP 2: Does the patient need extra time in social situations, OR does s/he interact with staff, other patien ts, and family members ONLY in structured environments, OR does s/he require medication for social in teraction? Yes, patient needs extra time SOCIAL INTERACTION - SCORE: 6-STACIE PROBLEM SOLVING: PROBLEM SOLVING - STEP 1: Does the patient need help to solve complex problems such as managing a checking account or confronti ng interpersonal problems? No. PROBLEM SOLVING - STEP 2: Does the patient require extra time to make decisions or solve problems, OR does s/he have slight dif ficulty reading, initiating, or self-correcting in unfamiliar situations? Yes, patient needs extra ti me. PROBLEM SOLVING - SCORE: 6-STACIE MEMORY: MEMORY - STEP 1: Does the patient need help to remember frequently encountered people, daily routines, and executing r equests? No. MEMORY - STEP 2: Does the patient have slight difficulty recognizing frequently encountered people, daily routines, or executing requests without the need for repetition or using self-initiated or environmental cues to remember? Yes. MEMORY - SCORE: 6-STACIE SIGNATURE PANEL: The following modified sections: Eating - Score, Grooming - Score, Bathing - Score, Dressing - Upper Body - Score, Dressing - Lower Body - Score, Toileting - Score, Bladder Management - Score, Bowel Man agement - Score, Transfers: Bed, Chair, Wheelchair - Score, Transfers: Toilet - Score, Transfers: Laurel wer - Score, Transfers: Tub - Score, Locomotion: Walk - Score, Locomotion: Wheelchair - Score, Compre hension - Score, Expression - Score, Social Interaction - Score, Problem Solving - Score, Memory - Sc ore were [electronically] signed by Annette BelloNStar on FriDec 17 2017 02:57:24 T-0500 ( Central Daylight Time)
[2017-12-17] MEDS: HYDROCODONE/APAP 10/325 TAB PO PRN ×2 (04:27→19:29)
[2017-12-17] MEDS: ATENOLOL 50 MG TAB PO SCH (05:11)
[2017-12-17] MEDS: DOCUSATE NA 100 MG CAP PO SCH ×2 (08:00→19:29)
[2017-12-17] MEDS: FERROUS SULFATE 325 MG TAB PO SCH (08:00)
[2017-12-17] MEDS: FE SULF/FA/VIT B COMP & C TAB PO SCH (08:00)
[2017-12-17] MEDS: ENSURE ENLIVE 237 ML CAN PO SCH ×2 (08:00→19:30)
[2017-12-17] MEDS: LIDOCAINE 5% PATCH TOP SCH (08:00)
[2017-12-17] MEDS: DULOXETINE 20 MG CAP PO SCH (08:00)
[2017-12-17] MEDS: LISINOPRIL 5 MG TAB PO SCH (09:15)
--- NOTE | 2017-12-17 14:22 | FAST ---
ENCOUNTER DATE AND TIME: 12/17/2017 08:00 (CDT) NAME BRO GRIMM DATE OF : 1945 DATE OF ADMISSION: 12/15/2017 15:20 (CDT) PHONE: AGE: 72 SSN# [id number] GENDER: Female ENCOUNTER PHYSICIAN: Dr. Joshua Melendez M.D. ADMISSION DIAGNOSIS: - Orthopaedic Disorders 08 - Pelvic Fracture (08.3) Vertebral Fx. EATING: Activity did not occur on this shift EATING - SCORE: 0-UNK GROOMING: Comb/brush hair Wash, rinse, and dry hands GROOMING - STEP 1: Does the patient require assistance when grooming? Yes. GROOMING - STEP 2: Does the patient require the assistance of a helper? No. The patient only requires an assistive devic e, OR takes more than reasonable time to groom, OR there is a concern for safety as the patient groom s GROOMING - SCORE: 6-STACIE BATHING: Activity did not occur on this shift BATHING - SCORE: 0-UNK DRESSING - UPPER BODY: Activity did not occur on this shift ARTICLES SCORE Total number of steps: 0 DRESSING - UPPER BODY - SCORE: 0-UNK DRESSING - LOWER BODY: Activity did not occur on this shift ARTICLES SCORE Total number of steps: 0 DRESSING - LOWER BODY - SCORE: 0-UNK TOILETING: TOILETING - STEP 1: Does the patient require assistance with toileting? Yes. TOILETING - STEP 2: Does the patient require the assistance of a helper? Yes. TOILETING - STEP 3: How much assistance does the patient require from the helper? Hands-on assistance from the helper TOILETING - STEP 4: Of the 3 tasks: 1) Adjusting clothing prior to use, 2) Cleansing of perineal area, 3) Adjusting clot vinicio after use; How many tasks does the patient perform WITHOUT assistance of the helper? Two tasks TOILETING - SCORE: 3-MOD BLADDER MANAGEMENT: Activity did not occur on this shift BLADDER MANAGEMENT - SCORE: 7-IND BOWEL MANAGEMENT: Activity did not occur on this shift BOWEL MANAGEMENT - SCORE: 7-IND TRANSFERS: BED, CHAIR, WHEELCHAIR: Activity did not occur on this shift TRANSFERS: BED, CHAIR, WHEELCHAIR - SCORE: 0-UNK TRANSFERS: TOILET: TRANSFERS: TOILET - STEP 1: Does the patient require assistance with toilet transfers? Yes. TRANSFERS: TOILET - STEP 2: Does the patient require the assistance of a helper? Yes. TRANSFERS: TOILET - STEP 3: How much assistance does the patient require from the helper? Patient performs half or more of the tr ansferring tasks TRANSFERS: TOILET - STEP 4: Does the patient need only incidental help such as contact guard or steadying during toilet transfer? No. Patient needs more than incidental help TRANSFERS: TOILET - SCORE: 3-MOD TRANSFERS: SHOWER: Activity did not occur on this shift TRANSFERS: SHOWER - SCORE: 0-UNK TRANSFERS: TUB: Activity did not occur on this shift TRANSFERS: TUB - SCORE: 0-UNK LOCOMOTION: WALK: Activity did not occur on this shift LOCOMOTION: WALK - SCORE: 0-UNK LOCOMOTION: WHEELCHAIR: Activity did not occur on this shift LOCOMOTION: WHEELCHAIR - SCORE: 0-UNK LOCOMOTION: STAIRS: Activity did not occur on this shift LOCOMOTION: STAIRS - SCORE: 0-UNK COMPREHENSION: COMPREHENSION - SCORE: 0-UNK EXPRESSION EXPRESSION - SCORE: 0-UNK SOCIAL INTERACTION: SOCIAL INTERACTION - SCORE: 0-UNK PROBLEM SOLVING: PROBLEM SOLVING - SCORE: 0-UNK MEMORY: MEMORY - SCORE: 0-UNK SIGNATURE PANEL: The following modified sections: Eating - Score, Grooming - Score, Bathing - Score, Dressing - Upper Body - Score, Dressing - Lower Body - Score, Toileting - Score, Transfers: Bed, Chair, Wheelchair - S core, Transfers: Toilet - Score, Transfers: Shower - Score, Transfers: Tub - Score, Comprehension - S core, Expression - Score, Social Interaction - Score, Problem Solving - Score, Memory - Score were [e lectronically] signed by QUINCY Durant on FriDec 17 2017 14:21:28 T-0500 ([facility] Time)
--- NOTE | 2017-12-17 14:35 | RAD REPORT ---
EXAM DESCRIPTION: RAD - Chest Single View - 12/17/2017 2:23 pm CLINICAL HISTORY: SOB Chest pain. COMPARISON: Chest Single View dated 12/09/2017; Chest Single View dated 06/10/2017; CHEST PA AND LAT 2 VIEW dated 12/21/2011; CHEST SINGLE VIEW dated 10/21/2010 FINDINGS: Portable technique limits examination quality. The lungs are mildly emphysematous but grossly clear. The heart is normal in size. No displaced fract ures.Screw is present in the right humeral head. IMPRESSION: No acute intrathoracic process suspected.
--- NOTE | 2017-12-17 14:43 | FAST ---
SHIFT START DATE/TIME: 12/17/2017 07:00 (CDT) SHIFT END DATE/TIME: 12/17/2017 19:00 (CDT) NAME BRO GRIMM DATE OF : 1945 DATE OF ADMISSION: 12/15/2017 15:20 (CDT) PHONE: AGE: 72 SSN# [id number] GENDER: Female ENCOUNTER PHYSICIAN: Dr. Joshua Melendez M.D. ADMISSION DIAGNOSIS: - Orthopaedic Disorders 08 - Pelvic Fracture (08.3) Vertebral Fx. EATING: EATING - STEP 1: Does the patient require assistance when eating? Yes. EATING - STEP 2: Does the patient require the assistance of a helper? No, patient only requires an assistive device, O R s/he takes more than reasonable time to eat, OR there is a safety concern, OR s/he requires modifie d food consistency EATING - SCORE: 6-STACIE GROOMING: Comb/brush hair Wash, rinse, and dry face Wash, rinse, and dry hands GROOMING - STEP 1: Does the patient require assistance when grooming? Yes. GROOMING - STEP 2: Does the patient require the assistance of a helper? No. The patient only requires an assistive devic e, OR takes more than reasonable time to groom, OR there is a concern for safety as the patient groom s GROOMING - SCORE: 6-STACIE BATHING: Activity did not occur on this shift BATHING - SCORE: 0-UNK DRESSING - UPPER BODY: Sweater (four steps) T-shirt/pullover shirt (four steps) ARTICLES SCORE Total number of steps: 8 DRESSING - UPPER BODY - STEP 1: Does the patient require help when dressing above the waist? Yes. DRESSING - UPPER BODY - STEP 2: Does the patient require the assistance of a helper? No. Patient only requires an assistive device, s uch as a button hook, velcro, or bathroom tiling professional. OR s/he takes more than reasonable time as s/he dresses the upper body. OR there is a concern for safety when s/he dresses the upper body DRESSING - UPPER BODY - SCORE: 6-STACIE DRESSING - LOWER BODY: Elastic waist pants (three steps) Slip-on shoe - Left foot (one step) Slip-on shoe - Right foot (one step) Underwear (three steps) ARTICLES SCORE Total number of steps: 8 DRESSING - LOWER BODY - STEP 1: Does the patient require help when dressing below the waist? Yes. DRESSING - LOWER BODY - STEP 2: Does the patient require the assistance of a helper? Yes. DRESSING - LOWER BODY - STEP 3: Does the helper touch the patient while dressing? No. DRESSING - LOWER BODY - SCORE: 5-SUP TOILETING: TOILETING - STEP 1: Does the patient require assistance with toileting? Yes. TOILETING - STEP 2: Does the patient require the assistance of a helper? Yes. TOILETING - STEP 3: How much assistance does the patient require from the helper? Hands-on assistance from the helper TOILETING - STEP 4: Of the 3 tasks: 1) Adjusting clothing prior to use, 2) Cleansing of perineal area, 3) Adjusting clot vinicio after use; How many tasks does the patient perform WITHOUT assistance of the helper? Two tasks TOILETING - SCORE: 3-MOD BLADDER MANAGEMENT: BLADDER MANAGEMENT - STEP 1: Does the patient control the bladder completely and intentionally without equipment or devices or med ications, and is always continent? No. BLADDER MANAGEMENT - STEP 2: Does the patient require the assistance of a helper? No, patient requires and independently uses an a ssistive device, such as a urinal, bedpan, bedside commode, catheter, absorbent pad, or collecting de vice BLADDER MANAGEMENT - SCORE: 6-STACIE BLADDER MANAGEMENT - FREQUENCY OF ACCIDENTS: BLADDER MANAGEMENT(FA) - STEP 1: How many accidents has the patient had during the current shift? 0 BOWEL MANAGEMENT: BOWEL MANAGEMENT - STEP 1: Does the patient control bowels completely and intentionally without equipment devices or medications AND is always continent? No. BOWEL MANAGEMENT - STEP 2: Does the patient require the assistance of a helper? No, patient requires extra time BOWEL MANAGEMENT - SCORE: 6-STACIE BOWEL MANAGEMENT - FREQUENCY OF ACCIDENTS: BOWEL MANAGEMENT(FA) - STEP 1: How many accidents has the patient had during the current shift? 0 TRANSFERS: BED, CHAIR, WHEELCHAIR: TRANSFERS: BED, CHAIR, WHEELCHAIR - STEP 1: Does the patient require assistance with bed, chair, or wheelchair transfers? Yes. TRANSFERS: BED, CHAIR, WHEELCHAIR - STEP 2: Does the patient require the assistance of a helper? Yes. TRANSFERS: BED, CHAIR, WHEELCHAIR - STEP 3: How much assistance does the patient require from the helper? Steadying/guiding assistance TRANSFERS: BED, CHAIR, WHEELCHAIR - SCORE: 4-MIN TRANSFERS: TOILET: TRANSFERS: TOILET - STEP 1: Does the patient require assistance with toilet transfers? Yes. TRANSFERS: TOILET - STEP 2: Does the patient require the assistance of a helper? Yes. TRANSFERS: TOILET - STEP 3: How much assistance does the patient require from the helper? Patient performs half or more of the tr ansferring tasks TRANSFERS: TOILET - STEP 4: Does the patient need only incidental help such as contact guard or steadying during toilet transfer? No. Patient needs more than incidental help TRANSFERS: TOILET - SCORE: 3-MOD TRANSFERS: SHOWER: Activity did not occur on this shift TRANSFERS: SHOWER - SCORE: 0-UNK TRANSFERS: TUB: Activity did not occur on this shift TRANSFERS: TUB - SCORE: 0-UNK LOCOMOTION: WALK: Activity did not occur on this shift LOCOMOTION: WALK - SCORE: 0-UNK LOCOMOTION: WHEELCHAIR: LOCOMOTION: WHEELCHAIR - STEP 1: Does the patient need help to go 150 feet in a wheelchair? Yes. LOCOMOTION: WHEELCHAIR - STEP 2: How much assistance does the patient need from the helper? More than incidental help LOCOMOTION: WHEELCHAIR - SCORE: 3-MOD COMPREHENSION: COMPREHENSION: TYPE: Both COMPREHENSION - STEP 1: Does the patient require help to understand complex and abstract ideas (such as current events, finan lesvia, discharge planning, medical issues, relationships, etc)? No. COMPREHENSION - STEP 2: Does the patient need extra time, require an assistive device (such as glasses for visual comprehensi on or a hearing aid for auditory comprehension) or does s/he have mild difficulty understanding compl ex and abstract information? Yes. COMPREHENSION - SCORE: 6-STACIE EXPRESSION EXPRESSION: TYPE: Both EXPRESSION - STEP 1: Does the patient require help expressing complex and abstract ideas (such as current events, finances , discharge planning, medical issues, relationships, etc)? No. EXPRESSION - STEP 2: Does the patient need extra time, require an assistive device (such as augmentive communication syste m or a communication board), OR does s/he have mild difficulty expressing complex and abstract ideas (including mild dysarthria or mild word-find problems)? Yes. EXPRESSION - SCORE: 6-STACIE SOCIAL INTERACTION: SOCIAL INTERACTION - STEP 1: Does the patient require a helper to interact with others in social and therapeutic situations? No. SOCIAL INTERACTION - STEP 2: Does the patient need extra time in social situations, OR does s/he interact with staff, other patien ts, and family members ONLY in structured environments, OR does s/he require medication for social in teraction? Yes, patient needs extra time SOCIAL INTERACTION - SCORE: 6-STACIE PROBLEM SOLVING: PROBLEM SOLVING - STEP 1: Does the patient need help to solve complex problems such as managing a checking account or confronti ng interpersonal problems? No. PROBLEM SOLVING - STEP 2: Does the patient require extra time to make decisions or solve problems, OR does s/he have slight dif ficulty reading, initiating, or self-correcting in unfamiliar situations? Yes, patient needs extra ti me. PROBLEM SOLVING - SCORE: 6-STACIE MEMORY: MEMORY - STEP 1: Does the patient need help to remember frequently encountered people, daily routines, and executing r equests? No. MEMORY - STEP 2: Does the patient have slight difficulty recognizing frequently encountered people, daily routines, or executing requests without the need for repetition or using self-initiated or environmental cues to remember? Yes. MEMORY - SCORE: 6-STACIE SIGNATURE PANEL: The following modified sections: Eating - Score, Grooming - Score, Bathing - Score, Dressing - Upper Body - Score, Dressing - Lower Body - Score, Toileting - Score, Bladder Management - Score, Bowel Man agement - Score, Transfers: Bed, Chair, Wheelchair - Score, Transfers: Toilet - Score, Transfers: Laurel wer - Score, Transfers: Tub - Score, Locomotion: Walk - Score, Locomotion: Wheelchair - Score, Compre hension - Score, Expression - Score, Social Interaction - Score, Problem Solving - Score, Memory - Sc ore were [electronically] signed by Milagro Yoo C.N.A. on FriDec 17 2017 14:42:32 T-0500 ([place] Time)
[2017-12-17] MEDS: PANTOPRAZOLE 40MG TABLET PO SCH (15:00)
--- NOTE | 2017-12-17 17:25 | FAST ---
ENCOUNTER DATE AND TIME: 12/17/2017 08:00 (CDT) NAME BRO GRIMM DATE OF : 1945 DATE OF ADMISSION: 12/15/2017 15:20 (CDT) PHONE: AGE: 72 SSN# [id number] GENDER: Female ENCOUNTER PHYSICIAN: Dr. Joshua Melendez M.D. ADMISSION DIAGNOSIS: - Orthopaedic Disorders 08 - Pelvic Fracture (08.3) Vertebral Fx. EATING: Activity did not occur on this shift EATING - SCORE: 0-UNK GROOMING: Activity did not occur on this shift GROOMING - SCORE: 0-UNK BATHING: Activity did not occur on this shift BATHING - SCORE: 0-UNK DRESSING - UPPER BODY: Activity did not occur on this shift Patient is not dressing in public clothing ARTICLES SCORE Total number of steps: 0 DRESSING - UPPER BODY - SCORE: 0-UNK DRESSING - LOWER BODY: Activity did not occur on this shift Patient is not dressing in public clothing ARTICLES SCORE Total number of steps: 0 DRESSING - LOWER BODY - SCORE: 0-UNK TOILETING: Activity did not occur on this shift TOILETING - SCORE: 0-UNK BLADDER MANAGEMENT: Activity did not occur on this shift BLADDER MANAGEMENT - SCORE: 7-IND BOWEL MANAGEMENT: Activity did not occur on this shift BOWEL MANAGEMENT - SCORE: 7-IND TRANSFERS: BED, CHAIR, WHEELCHAIR: TRANSFERS: BED, CHAIR, WHEELCHAIR - STEP 1: Does the patient require assistance with bed, chair, or wheelchair transfers? Yes. TRANSFERS: BED, CHAIR, WHEELCHAIR - STEP 2: Does the patient require the assistance of a helper? Yes. TRANSFERS: BED, CHAIR, WHEELCHAIR - STEP 3: How much assistance does the patient require from the helper? Steadying/guiding assistance TRANSFERS: BED, CHAIR, WHEELCHAIR - SCORE: 4-MIN TRANSFERS: TOILET: TRANSFERS: TOILET - STEP 1: Does the patient require assistance with toilet transfers? Yes. TRANSFERS: TOILET - STEP 2: Does the patient require the assistance of a helper? Yes. TRANSFERS: TOILET - STEP 3: How much assistance does the patient require from the helper? Patient performs half or more of the tr ansferring tasks TRANSFERS: TOILET - STEP 4: Does the patient need only incidental help such as contact guard or steadying during toilet transfer? Yes. TRANSFERS: TOILET - SCORE: 4-MIN TRANSFERS: SHOWER: Activity did not occur on this shift TRANSFERS: SHOWER - SCORE: 0-UNK TRANSFERS: TUB: Activity did not occur on this shift TRANSFERS: TUB - SCORE: 0-UNK LOCOMOTION: WALK: LOCOMOTION: WALK - STEP 1: Does the patient need help to walk 150 feet? Yes. LOCOMOTION: WALK - STEP 2: How much assistance does the patient require to walk a minimum of 150 feet? More than incidental help LOCOMOTION: WALK - SCORE: 3-MOD LOCOMOTION: WHEELCHAIR: LOCOMOTION: WHEELCHAIR - STEP 1: Does the patient need help to go 150 feet in a wheelchair? Yes. LOCOMOTION: WHEELCHAIR - STEP 2: How much assistance does the patient need from the helper? Only supervision, cuing, or coaxing LOCOMOTION: WHEELCHAIR - SCORE: 5-SUP LOCOMOTION: STAIRS: Activity did not occur on this shift LOCOMOTION: STAIRS - SCORE: 0-UNK COMPREHENSION: COMPREHENSION - SCORE: 0-UNK EXPRESSION EXPRESSION - SCORE: 0-UNK SOCIAL INTERACTION: SOCIAL INTERACTION - SCORE: 0-UNK PROBLEM SOLVING: PROBLEM SOLVING - SCORE: 0-UNK MEMORY: MEMORY - SCORE: 0-UNK SIGNATURE PANEL: The following modified sections: Transfers: Bed, Chair, Wheelchair - Score, Transfers: Toilet - Score , Locomotion: Walk - Score, Locomotion: Wheelchair - Score, Locomotion: Stairs - Score were [radha talley] signed by Judie Pretty PTA on FriDec 17 2017 17:23:57 GMT-0500 (Central Daylight Time)
--- NOTE | 2017-12-17 17:30 | R.PN ---
ENCOUNTER DATE AND TIME: 12/17/2017 17:25 (CDT) NAME BRO GRIMM DATE OF : 1945 DATE OF ADMISSION: 12/15/2017 15:20 (CDT) Vertebral FxCHIEF COMPLAINT: Pubic and vertebral fracture SUBJECTIVE: Pt denied any Shortness of Breath. Pt denied any depression. Ambulated 42' with contact guard assistance with a rolling walker. Mobilized 100' using a wheelchair. VITAL SIGNS Temperature: 97.6 F SBP/DBP: 139/69 Pulse: 70 Resp: 14 MEDICATION ALLERGIES: No Known Drug Allergies (NKDA) ENVIRONMENTAL ALLERGIES: - Substance Allergies None Known - Other Allergies None Known NURSING: - Shower allowing shower - Skin care per protocol ACTIVITIES OOB only with supervision THERAPIES: - Occupational Therapy Evaluate and Treat. - Physical Therapy Evaluate and Treat. PHYSICAL EXAM - Gen Alert and awake Lying in bed No apparent distress Oriented to: person, time, and place - Skin No skin breakdown. No abnormalities - Eyes No abnormalities - ENMT No abnormalities - Neck No abnormalities - CVS RRR - Chest Clear - Abd Soft - GI Non distended Deferred - No abnormalities - Ext No significant edema - MSK 4+/5 weakness in both lower extremities. - Neuro 4/5 strength bilaterally lower extremities. - Psych No abnormalities ASSESSMENT: Pt. is a 72 yo Right-handed white female.On 12/09/2017 she was admitted to [facility] with diagnosis Vertebral Fx.Her impairment category is Orthopaedic Disorders 08 - Pelvic Frac ture (08.3).Pre-morbidly, Pt. was independent/mod-I in Self-Care, Sphincter Control, Transfers Contro l, Communication, Social Cognition, and Locomotion; and she had good Sphincter Control.Currently, she has deficits of Balance, Self-Care, Endurance, Safety Awareness, Transfers Control, Communication, S ocial Cognition, and Locomotion.Pt. is now referred to [facility] for acute in -patient rehabilitation in order to maximize patient's functional independence in activities of daily living, strength, ROM, and mobility.- Rehab Goal Patient has realistic goal of being discharged at assistance level 6-Holly to reside at Home with Fam юлия/Relatives. MDM/PLAN: - Physical Therapy Decreased range of motion - to improve, our physical therapists will perform initial evaluation of p t's status upon admission and devise an individualized program for increasing patient's Range of [place] on. Gait dysfunction - to improve, our physical therapists will perform initial evaluation of pt's statu s upon admission and devise an individualized program for Gait Training, and Wheel Chair mobility Inability to transfer - to improve, our physical therapists will perform initial evaluation of pt's status upon admission and devise an individualized program for Bed mobility Need for home safety evaluation - to improve, our physical therapists will perform initial evaluatio n of pt's status upon admission and devise an individualized program for Home Evaluation Need in caregiver upon discharge - to improve, our physical therapists will perform initial evaluati on of pt's status upon admission and devise an individualized program for Caregiver Training Edema - to improve, our physical therapists will perform initial evaluation of pt's status upon admis robert and devise an individualized program for Elevation Training, and Lymphedema Therapy New precaution - to improve, our physical therapists will perform initial evaluation of pt's status upon admission and devise an individualized program for Patient precaution education Poor balance - to improve, our physical therapists will perform initial evaluation of pt's status up on admission and devise an individualized program for Balance Training Poor endurance - to improve, our physical therapists will perform initial evaluation of pt's status upon admission and devise an individualized program for Endurance Training Weakness - to improve, our physical therapists will perform initial evaluation of pt's status upon a dmission and devise an individualized program for Aquatic Therapy, Neuromuscular Reeducation, and Str engthening Achieving independence - to improve, our physical therapists will perform initial evaluation of pt's status upon admission and devise an individualized program for Community Reintegration Activities - Occupational Therapy ADL deficits - to improve, our occupation therapists will perform initial evaluation of pt's status upon admission and devise an individualized program for Bathing, Bed mobility, Community Reintegratio n, Cooking, Dressing, Eating, Fine Motor Skills, Grooming, Homemaking, Kitchen Mobility, Laundry, Pat ient Education, Safety Awareness, Splinting - Positioning, Transfers(Toilet, Tub, Shower), and Wheel Chair Management Cognitive deficits - to improve, our occupation therapists will perform initial evaluation of pt's s tatus upon admission and devise an individualized program for Cognition - orientation Need for laboratory animal caretaker - to improve, our occupation therapists will perform initial evaluation of pt's status upon admission and devise an individualized program for Caregiver Training Weakness - to improve, our occupation therapists will perform initial evaluation of pt's status upon admission and devise an individualized program for Aquatic Therapy, Balance, Endurance, UE ROM, and UE strengthening - Diet Type Continue Regular - Diet - Liquid Texture Continue Regular - Tube Feed Continue N/A - Skin care per protocol - Diet - Solid Texture Continue Regular - Shower allowing shower FUNCTIONAL STATUS: UPDATED AT WEEKLY TEAM CONFERENCE - Bladder Same accident frequency: 7-Ind - No accidents in the past 7 days - Bowel Same accident frequency: 7-Ind - No accidents in the past 7 days - Walking Same score based on distance walked: 1(<=50ft) FUNCTIONAL STATUS: - Self-Care A. Eating sup B. Grooming sup C. Bathing modA D. Dressing - Upper sup E. Dressing - Lower maxA F. Toileting modA - Sphincter Control G: Bladder control Ind H: Bowel control Ind - Transfers Control I. Bed/Chair/Wheelchair modA J. Toilet modA K. Tub/Shower modA - Locomotion L. Walk/Wheelchair (B) maxA M. Stairs ADNO - Communication N. Comprehension (B) Sheng O. Expression (B) Sheng - Social Cognition P. Social Interaction Sheng Q. Problem Solving Sheng R. Memory Sheng - Endurance Poor - Balance Poor - Safety Awareness Poor CURRENT FUNC. DEFICITS: Balance, Self-Care, Endurance, Safety Awareness, Transfers Control, Communication, Social Cognition, and Locomotion SIGNATURE PANEL: (CDT)
--- NOTE | 2017-12-17 19:13 | RAD REPORT ---
EXAM DESCRIPTION: CT - Chest For Pe Angio - 12/17/2017 7:05 pm CLINICAL HISTORY: Chest pain. Cough COMPARISON: THORAX W CONTRAST dated 09/02/2011 TECHNIQUE: CT angiogram of the pulmonary arteries was performed with MIP. All CT scans are performed using dose optimization technique as appropriate and may include automated exposure control or mA/KV adjustment according to patient size. FINDINGS: No evidence of pulmonary thromboembolism. No acute aortic finding demonstrated. Mild linear subsegmental atelectasis is present in both lung bases posteriorly. No significant pericardial or pleural fluid. No concerning bony finding. IMPRESSION: No evidence of pulmonary thromboembolism. Mild linear subsegmental atelectasis in both lung bases.
[2017-12-17] MEDS: MELATONIN 3 MG TABLET PO PRN (19:30)
--- NOTE | 2017-12-18 03:25 | FAST ---
SHIFT START DATE/TIME: 12/17/2017 19:00 (CDT) SHIFT END DATE/TIME: 12/18/2017 07:00 (CDT) NAME BRO GRIMM DATE OF : 1945 DATE OF ADMISSION: 12/15/2017 15:20 (CDT) PHONE: AGE: 72 N# [id number] GENDER: Female ENCOUNTER PHYSICIAN: Dr. Joshua Melendez M.D. ADMISSION DIAGNOSIS: - Orthopaedic Disorders 08 - Pelvic Fracture (08.3) Vertebral Fx. EATING: Activity did not occur on this shift EATING - SCORE: 0-UNK GROOMING: Activity did not occur on this shift GROOMING - SCORE: 0-UNK BATHING: Activity did not occur on this shift BATHING - SCORE: 0-UNK DRESSING - UPPER BODY: Patient is not dressing in public clothing ARTICLES SCORE Total number of steps: 0 DRESSING - UPPER BODY - SCORE: 0-UNK DRESSING - LOWER BODY: Patient is not dressing in public clothing ARTICLES SCORE Total number of steps: 0 DRESSING - LOWER BODY - SCORE: 0-UNK TOILETING: TOILETING - STEP 1: Does the patient require assistance with toileting? Yes. TOILETING - STEP 2: Does the patient require the assistance of a helper? Yes. TOILETING - STEP 3: How much assistance does the patient require from the helper? Hands-on assistance from the helper TOILETING - STEP 4: Of the 3 tasks: 1) Adjusting clothing prior to use, 2) Cleansing of perineal area, 3) Adjusting clot vinicio after use; How many tasks does the patient perform WITHOUT assistance of the helper? One task TOILETING - SCORE: 2-MAX BLADDER MANAGEMENT: BLADDER MANAGEMENT - STEP 1: Does the patient control the bladder completely and intentionally without equipment or devices or med ications, and is always continent? No. BLADDER MANAGEMENT - STEP 2: Does the patient require the assistance of a helper? Yes. BLADDER MANAGEMENT - STEP 3: How much assistance does the patient require from the helper? Only set-up of equipment - such as plac ing it within reach of the patient or emptying a device - to maintain either satisfactory voiding pat tern or managing an external device, such as an absorbent pad, ileal device, or catheter BLADDER MANAGEMENT - SCORE: 5-SUP BOWEL MANAGEMENT: Activity did not occur on this shift BOWEL MANAGEMENT - SCORE: 7-IND TRANSFERS: BED, CHAIR, WHEELCHAIR: TRANSFERS: BED, CHAIR, WHEELCHAIR - STEP 1: Does the patient require assistance with bed, chair, or wheelchair transfers? Yes. TRANSFERS: BED, CHAIR, WHEELCHAIR - STEP 2: Does the patient require the assistance of a helper? Yes. TRANSFERS: BED, CHAIR, WHEELCHAIR - STEP 3: How much assistance does the patient require from the helper? Lifting of the legs TRANSFERS: BED, CHAIR, WHEELCHAIR - STEP 4: How many legs does the patient require the helper to lift? both legs TRANSFERS: BED, CHAIR, WHEELCHAIR - SCORE: 3-MOD TRANSFERS: TOILET: TRANSFERS: TOILET - STEP 1: Does the patient require assistance with toilet transfers? Yes. TRANSFERS: TOILET - STEP 2: Does the patient require the assistance of a helper? Yes. TRANSFERS: TOILET - STEP 3: How much assistance does the patient require from the helper? Patient performs half or more of the tr ansferring tasks TRANSFERS: TOILET - STEP 4: Does the patient need only incidental help such as contact guard or steadying during toilet transfer? No. Patient needs more than incidental help TRANSFERS: TOILET - SCORE: 3-MOD TRANSFERS: SHOWER: Activity did not occur on this shift TRANSFERS: SHOWER - SCORE: 0-UNK TRANSFERS: TUB: Activity did not occur on this shift TRANSFERS: TUB - SCORE: 0-UNK LOCOMOTION: WALK: Activity did not occur on this shift LOCOMOTION: WALK - SCORE: 0-UNK LOCOMOTION: WHEELCHAIR: Activity did not occur on this shift LOCOMOTION: WHEELCHAIR - SCORE: 0-UNK COMPREHENSION: COMPREHENSION: TYPE: Both COMPREHENSION - STEP 1: Does the patient require help to understand complex and abstract ideas (such as current events, finan lesvia, discharge planning, medical issues, relationships, etc)? No. COMPREHENSION - STEP 2: Does the patient need extra time, require an assistive device (such as glasses for visual comprehensi on or a hearing aid for auditory comprehension) or does s/he have mild difficulty understanding compl ex and abstract information? Yes. COMPREHENSION - SCORE: 6-STACIE EXPRESSION EXPRESSION: TYPE: Both EXPRESSION - STEP 1: Does the patient require help expressing complex and abstract ideas (such as current events, finances , discharge planning, medical issues, relationships, etc)? No. EXPRESSION - STEP 2: Does the patient need extra time, require an assistive device (such as augmentive communication syste m or a communication board), OR does s/he have mild difficulty expressing complex and abstract ideas (including mild dysarthria or mild word-find problems)? No. EXPRESSION - SCORE: 7-IND SOCIAL INTERACTION: SOCIAL INTERACTION - STEP 1: Does the patient require a helper to interact with others in social and therapeutic situations? No. SOCIAL INTERACTION - STEP 2: Does the patient need extra time in social situations, OR does s/he interact with staff, other patien ts, and family members ONLY in structured environments, OR does s/he require medication for social in teraction? Yes, patient needs extra time SOCIAL INTERACTION - SCORE: 6-STACIE PROBLEM SOLVING: PROBLEM SOLVING - STEP 1: Does the patient need help to solve complex problems such as managing a checking account or confronti ng interpersonal problems? No. PROBLEM SOLVING - STEP 2: Does the patient require extra time to make decisions or solve problems, OR does s/he have slight dif ficulty reading, initiating, or self-correcting in unfamiliar situations? Yes, patient needs extra ti me. PROBLEM SOLVING - SCORE: 6-STACIE MEMORY: MEMORY - STEP 1: Does the patient need help to remember frequently encountered people, daily routines, and executing r equests? No. MEMORY - STEP 2: Does the patient have slight difficulty recognizing frequently encountered people, daily routines, or executing requests without the need for repetition or using self-initiated or environmental cues to remember? Yes. MEMORY - SCORE: 6-STACIE SIGNATURE PANEL: The following modified sections: Eating - Score, Grooming - Score, Dressing - Upper Body - Score, Axel ssing - Lower Body - Score, Toileting - Score, Bladder Management - Score, Bowel Management - Score, Transfers: Bed, Chair, Wheelchair - Score, Transfers: Toilet - Score, Transfers: Shower - Score, Parmar sfers: Tub - Score, Locomotion: Walk - Score, Locomotion: Wheelchair - Score, Comprehension - Score, Expression - Score, Social Interaction - Score, Problem Solving - Score, Memory - Score were [electro nically] signed by Eli Escalera CNA on FriDec 18 2017 03:24:53 GMT-0500 (Central Daylight Time)
[2017-12-18] MEDS: ATENOLOL 50 MG TAB PO SCH (05:10)
[2017-12-18] MEDS: HYDROCODONE/APAP 10/325 TAB PO PRN ×4 (05:10→22:28)
[2017-12-18 06:56] LABS: Absolute Lymphocytes (CBC) 1.3 K/uL (0.7-4.9); Absolute Monocytes 0.6 K/uL (0.1-1.3); Absolute Neutrophil 4.6 K/uL (1.8-8.0); Eosinophils % 2.2 % (0-4.4); Hematocrit 30.8 % (36.0-45.0); Lymphocytes % 19.8 % (15.3-44.8); MCH 29.1 pg (27.0-35.0); MCV 83.6 fL (80-100); Monocytes % 8.6 % (3.3-12.3); RBC Red Blood Cell Count 3.68 M/uL (3.86-4.86)
[2017-12-18] MEDS: PANTOPRAZOLE 40MG TABLET PO SCH (07:01)
[2017-12-18] MEDS: DOCUSATE NA 100 MG CAP PO SCH ×3 (07:02→20:14)
[2017-12-18] MEDS: FERROUS SULFATE 325 MG TAB PO SCH (07:02)
[2017-12-18] MEDS: FE SULF/FA/VIT B COMP & C TAB PO SCH (07:02)
[2017-12-18] MEDS: LISINOPRIL 5 MG TAB PO SCH (07:03)
[2017-12-18] MEDS: DULOXETINE 20 MG CAP PO SCH (07:03)
[2017-12-18 07:16] LABS: Albumin 2.6 g/dL (3.4-5.0); BUN Blood Urea Nitrogen 12 mg/dL (7-18); Bicarbonate 24 mmol/L (21-32); Glucose Level 80 mg/dL (74-106); Potassium 3.3 mmol/L (3.5-5.1); Prealbumin 14.3 mg/dL (20-40); Sodium Level 140 mmol/L (136-145)
[2017-12-18] MEDS: ENSURE ENLIVE 237 ML CAN PO SCH ×2 (07:35→20:00)
[2017-12-18] MEDS: TRAMADOL HCL 50 MG TAB PO PRN ×3 (07:53→20:14)
[2017-12-18] MEDS: ONDANSETRON 4 MG (ODT) TAB PO PRN (09:23)
[2017-12-18] MEDS: LIDOCAINE 5% PATCH TOP SCH (09:43)
--- NOTE | 2017-12-18 15:03 | FAST ---
ENCOUNTER DATE AND TIME: 12/18/2017 08:00 (CDT) NAME BRO GRIMM DATE OF : 1945 DATE OF ADMISSION: 12/15/2017 15:20 (CDT) PHONE: AGE: 72 N# [id number] GENDER: Female ENCOUNTER PHYSICIAN: Dr. Joshua Melendez M.D. ADMISSION DIAGNOSIS: - Orthopaedic Disorders 08 - Pelvic Fracture (08.3) Vertebral Fx. EATING: Activity did not occur on this shift EATING - SCORE: 0-UNK GROOMING: Comb/brush hair Oral care Wash, rinse, and dry face Wash, rinse, and dry hands GROOMING - STEP 1: Does the patient require assistance when grooming? Yes. GROOMING - STEP 2: Does the patient require the assistance of a helper? Yes. GROOMING - STEP 3: How much assistance does the patient require from the helper? Cuing, coaxing, instructions, or encour agement for completion of grooming GROOMING - SCORE: 5-SUP BATHING: Activity did not occur on this shift BATHING - SCORE: 0-UNK DRESSING - UPPER BODY: Activity did not occur on this shift ARTICLES SCORE Total number of steps: 0 DRESSING - UPPER BODY - SCORE: 0-UNK DRESSING - LOWER BODY: Activity did not occur on this shift ARTICLES SCORE Total number of steps: 0 DRESSING - LOWER BODY - SCORE: 0-UNK TOILETING: TOILETING - STEP 1: Does the patient require assistance with toileting? Yes. TOILETING - STEP 2: Does the patient require the assistance of a helper? Yes. TOILETING - STEP 3: How much assistance does the patient require from the helper? Hands-on assistance from the helper TOILETING - STEP 4: Of the 3 tasks: 1) Adjusting clothing prior to use, 2) Cleansing of perineal area, 3) Adjusting clot vinicio after use; How many tasks does the patient perform WITHOUT assistance of the helper? One task TOILETING - SCORE: 2-MAX BLADDER MANAGEMENT: Activity did not occur on this shift BLADDER MANAGEMENT - SCORE: 7-IND BOWEL MANAGEMENT: Activity did not occur on this shift BOWEL MANAGEMENT - SCORE: 7-IND TRANSFERS: BED, CHAIR, WHEELCHAIR: Activity did not occur on this shift TRANSFERS: BED, CHAIR, WHEELCHAIR - SCORE: 0-UNK TRANSFERS: TOILET: TRANSFERS: TOILET - STEP 1: Does the patient require assistance with toilet transfers? Yes. TRANSFERS: TOILET - STEP 2: Does the patient require the assistance of a helper? Yes. TRANSFERS: TOILET - STEP 3: How much assistance does the patient require from the helper? Patient performs less than half of the transferring tasks TRANSFERS: TOILET - STEP 4: Does the patient require total assistance for the toilet transfer such as the helper doing basically all the lifting? No. TRANSFERS: TOILET - SCORE: 2-MAX TRANSFERS: SHOWER: Activity did not occur on this shift TRANSFERS: SHOWER - SCORE: 0-UNK TRANSFERS: TUB: Activity did not occur on this shift TRANSFERS: TUB - SCORE: 0-UNK LOCOMOTION: WALK: Activity did not occur on this shift LOCOMOTION: WALK - SCORE: 0-UNK LOCOMOTION: WHEELCHAIR: Activity did not occur on this shift LOCOMOTION: WHEELCHAIR - SCORE: 0-UNK LOCOMOTION: STAIRS: Activity did not occur on this shift LOCOMOTION: STAIRS - SCORE: 0-UNK COMPREHENSION: COMPREHENSION - SCORE: 0-UNK EXPRESSION EXPRESSION - SCORE: 0-UNK SOCIAL INTERACTION: SOCIAL INTERACTION - SCORE: 0-UNK PROBLEM SOLVING: PROBLEM SOLVING - SCORE: 0-UNK MEMORY: MEMORY - SCORE: 0-UNK SIGNATURE PANEL: The following modified sections: Eating - Score, Grooming - Score, Bathing - Score, Dressing - Upper Body - Score, Dressing - Lower Body - Score, Toileting - Score, Transfers: Bed, Chair, Wheelchair - S core, Transfers: Toilet - Score, Transfers: Shower - Score, Transfers: Tub - Score, Comprehension - S core, Expression - Score, Social Interaction - Score, Problem Solving - Score, Memory - Score were [e lectronically] signed by QUINCY Durant on FriDec 18 2017 15:02:40 T-0500 ([facility])
[2017-12-18] MEDS: PROMOD 30 ML DOSE PO SCH (20:00)
[2017-12-18] MEDS: CRANBERRY FRUIT EXTRACT 200 MG CAP PO SCH (20:13)
[2017-12-18] MEDS: MELATONIN 3 MG TABLET PO PRN (20:15)
--- NOTE | 2017-12-19 03:07 | FAST ---
SHIFT START DATE/TIME: 12/18/2017 19:00 (CDT) SHIFT END DATE/TIME: 12/19/2017 07:00 (CDT) NAME BRO GRIMM DATE OF : 1945 DATE OF ADMISSION: 12/15/2017 15:20 (CDT) PHONE: AGE: 72 N# [id number] GENDER: Female ENCOUNTER PHYSICIAN: Dr. Joshua Melendez M.D. ADMISSION DIAGNOSIS: - Orthopaedic Disorders 08 - Pelvic Fracture (08.3) Vertebral Fx. EATING: Activity did not occur on this shift EATING - SCORE: 0-UNK GROOMING: Wash, rinse, and dry hands GROOMING - STEP 1: Does the patient require assistance when grooming? Yes. GROOMING - STEP 2: Does the patient require the assistance of a helper? Yes. GROOMING - STEP 3: How much assistance does the patient require from the helper? Cuing, coaxing, instructions, or encour agement for completion of grooming GROOMING - SCORE: 5-SUP BATHING: Activity did not occur on this shift BATHING - SCORE: 0-UNK DRESSING - UPPER BODY: Patient is not dressing in public clothing ARTICLES SCORE Total number of steps: 0 DRESSING - UPPER BODY - SCORE: 0-UNK DRESSING - LOWER BODY: Patient is not dressing in public clothing ARTICLES SCORE Total number of steps: 0 DRESSING - LOWER BODY - SCORE: 0-UNK TOILETING: TOILETING - STEP 1: Does the patient require assistance with toileting? Yes. TOILETING - STEP 2: Does the patient require the assistance of a helper? Yes. TOILETING - STEP 3: How much assistance does the patient require from the helper? Hands-on assistance from the helper TOILETING - STEP 4: Of the 3 tasks: 1) Adjusting clothing prior to use, 2) Cleansing of perineal area, 3) Adjusting clot vinicio after use; How many tasks does the patient perform WITHOUT assistance of the helper? No tasks; alina bird performs all three tasks TOILETING - SCORE: 1-DEP BLADDER MANAGEMENT: BLADDER MANAGEMENT - STEP 1: Does the patient control the bladder completely and intentionally without equipment or devices or med ications, and is always continent? No. BLADDER MANAGEMENT - STEP 2: Does the patient require the assistance of a helper? Yes. BLADDER MANAGEMENT - STEP 3: How much assistance does the patient require from the helper? Only set-up of equipment - such as plac ing it within reach of the patient or emptying a device - to maintain either satisfactory voiding pat tern or managing an external device, such as an absorbent pad, ileal device, or catheter BLADDER MANAGEMENT - SCORE: 5-SUP BOWEL MANAGEMENT: Activity did not occur on this shift BOWEL MANAGEMENT - SCORE: 7-IND TRANSFERS: BED, CHAIR, WHEELCHAIR: TRANSFERS: BED, CHAIR, WHEELCHAIR - STEP 1: Does the patient require assistance with bed, chair, or wheelchair transfers? Yes. TRANSFERS: BED, CHAIR, WHEELCHAIR - STEP 2: Does the patient require the assistance of a helper? Yes. TRANSFERS: BED, CHAIR, WHEELCHAIR - STEP 3: How much assistance does the patient require from the helper? Lifting of the legs TRANSFERS: BED, CHAIR, WHEELCHAIR - STEP 4: How many legs does the patient require the helper to lift? both legs TRANSFERS: BED, CHAIR, WHEELCHAIR - SCORE: 3-MOD TRANSFERS: TOILET: TRANSFERS: TOILET - STEP 1: Does the patient require assistance with toilet transfers? Yes. TRANSFERS: TOILET - STEP 2: Does the patient require the assistance of a helper? Yes. TRANSFERS: TOILET - STEP 3: How much assistance does the patient require from the helper? Patient performs half or more of the tr ansferring tasks TRANSFERS: TOILET - STEP 4: Does the patient need only incidental help such as contact guard or steadying during toilet transfer? No. Patient needs more than incidental help TRANSFERS: TOILET - SCORE: 3-MOD TRANSFERS: SHOWER: Activity did not occur on this shift TRANSFERS: SHOWER - SCORE: 0-UNK TRANSFERS: TUB: Activity did not occur on this shift TRANSFERS: TUB - SCORE: 0-UNK LOCOMOTION: WALK: Activity did not occur on this shift LOCOMOTION: WALK - SCORE: 0-UNK LOCOMOTION: WHEELCHAIR: Activity did not occur on this shift LOCOMOTION: WHEELCHAIR - SCORE: 0-UNK COMPREHENSION: COMPREHENSION: TYPE: Both COMPREHENSION - STEP 1: Does the patient require help to understand complex and abstract ideas (such as current events, finan lesvia, discharge planning, medical issues, relationships, etc)? Yes. COMPREHENSION - STEP 2: Does the patient require help to understand questions or statements about basic needs or ideas (such as hunger, thirst, sleep, safety, daily schedule, room location, or discomfort) half or more of the t [place]? No. COMPREHENSION - STEP 3: How often does the patient need help to understand directions and conversation about basic needs? 10% - 24% of the time COMPREHENSION - SCORE: 4-MIN EXPRESSION EXPRESSION: TYPE: Both EXPRESSION - STEP 1: Does the patient require help expressing complex and abstract ideas (such as current events, finances , discharge planning, medical issues, relationships, etc)? No. EXPRESSION - STEP 2: Does the patient need extra time, require an assistive device (such as augmentive communication syste m or a communication board), OR does s/he have mild difficulty expressing complex and abstract ideas (including mild dysarthria or mild word-find problems)? Yes. EXPRESSION - SCORE: 6-STACIE SOCIAL INTERACTION: SOCIAL INTERACTION - STEP 1: Does the patient require a helper to interact with others in social and therapeutic situations? No. SOCIAL INTERACTION - STEP 2: Does the patient need extra time in social situations, OR does s/he interact with staff, other patien ts, and family members ONLY in structured environments, OR does s/he require medication for social in teraction? Yes, patient needs extra time SOCIAL INTERACTION - SCORE: 6-STACIE PROBLEM SOLVING: PROBLEM SOLVING - STEP 1: Does the patient need help to solve complex problems such as managing a checking account or confronti ng interpersonal problems? No. PROBLEM SOLVING - STEP 2: Does the patient require extra time to make decisions or solve problems, OR does s/he have slight dif ficulty reading, initiating, or self-correcting in unfamiliar situations? Yes, patient needs extra ti me. PROBLEM SOLVING - SCORE: 6-STACIE MEMORY: MEMORY - STEP 1: Does the patient need help to remember frequently encountered people, daily routines, and executing r equests? No. MEMORY - STEP 2: Does the patient have slight difficulty recognizing frequently encountered people, daily routines, or executing requests without the need for repetition or using self-initiated or environmental cues to remember? Yes. MEMORY - SCORE: 6-STACIE SIGNATURE PANEL: The following modified sections: Eating - Score, Grooming - Score, Dressing - Upper Body - Score, Axel ssing - Lower Body - Score, Toileting - Score, Bladder Management - Score, Bowel Management - Score, Transfers: Bed, Chair, Wheelchair - Score, Transfers: Toilet - Score, Transfers: Shower - Score, Parmar sfers: Tub - Score, Locomotion: Walk - Score, Locomotion: Wheelchair - Score, Comprehension - Score, Expression - Score, Social Interaction - Score, Problem Solving - Score, Memory - Score were [electro nically] signed by Eli Escalera CNA on FriDec 19 2017 03:07:18 GMT-0500 (Central Daylight Time)
[2017-12-19] MEDS: TRAMADOL HCL 50 MG TAB PO PRN ×4 (03:27→16:50)
[2017-12-19] MEDS: ATENOLOL 50 MG TAB PO SCH (05:14)
[2017-12-19] MEDS: HYDROCODONE/APAP 10/325 TAB PO PRN ×4 (06:29→19:36)
[2017-12-19] MEDS: LIDOCAINE 5% PATCH TOP SCH (07:31)
[2017-12-19] MEDS: ENSURE ENLIVE 237 ML CAN PO SCH ×2 (08:00→19:38)
[2017-12-19] MEDS: PANTOPRAZOLE 40MG TABLET PO SCH (08:30)
[2017-12-19] MEDS: FE SULF/FA/VIT B COMP & C TAB PO SCH (08:40)
[2017-12-19] MEDS: LISINOPRIL 5 MG TAB PO SCH (08:40)
[2017-12-19] MEDS: POTASSIUM CL SA 10 MEQ TAB PO SCH (08:40)
[2017-12-19] MEDS: DOCUSATE NA 100 MG CAP PO SCH ×2 (08:41→19:37)
[2017-12-19] MEDS: DULOXETINE 20 MG CAP PO SCH (08:41)
[2017-12-19] MEDS: CRANBERRY FRUIT EXTRACT 200 MG CAP PO SCH ×2 (08:41→19:37)
[2017-12-19] MEDS: FERROUS SULFATE 325 MG TAB PO SCH (08:41)
[2017-12-19] MEDS: PROMOD 30 ML DOSE PO SCH ×2 (08:42→19:38)
--- NOTE | 2017-12-19 09:29 | P.RH.PN ---
Estimated Length of Stay: 13 Expected Discharge Date: 12/27/17 Discharge Disposition Plan: Home Family Support: Yes Group Home Goal: Mobility, Transfers, Self Care Vital Signs: Last Vital Signs Temp 97.8 F 12/19/17 06:15 Pulse 70 12/19/17 08:40 Resp 18 12/19/17 06:15 BP 151/68 H 12/19/17 08:40 Pulse Ox 98 12/19/17 06:15 Laboratory: Laboratory Last Values WBC 6.8 K/uL (4.3-10.9) 12/18/17 06:25 RBC 3.68 M/uL (3.86-4.86) L 12/18/17 06:25 Hgb 10.7 g/dL (12.0-15.0) L 12/18/17 06:25 Hct 30.8 % (36.0-45.0) L 12/18/17 06:25 MCV 83.6 fL (80-100) 12/18/17 06:25 MCH 29.1 pg (27.0-35.0) 12/18/17 06:25 MCHC 34.9 g/dL (32.0-36.0) 12/18/17 06:25 RDW 13.7 % (12.1-15.2) 12/18/17 06:25 Plt Count 233 K/uL (152-406) 12/18/17 06:25 MPV 9.0 fL (7.6-11.3) 12/18/17 06:25 Neutrophils % 68.4 % (41.7-73.7) 12/18/17 06:25 Lymphocytes % 19.8 % (15.3-44.8) 12/18/17 06:25 Monocytes % 8.6 % (3.3-12.3) 12/18/17 06:25 Eosinophils % 2.2 % (0-4.4) 12/18/17 06:25 Basophils % 1.0 % (0-1.3) 12/18/17 06:25 Absolute Neutrophils 4.6 K/uL (1.8-8.0) 12/18/17 06:25 Absolute Lymphocytes 1.3 K/uL (0.7-4.9) 12/18/17 06:25 Absolute Monocytes 0.6 K/uL (0.1-1.3) 12/18/17 06:25 Absolute Eosinophils 0.1 K/uL (0-0.5) 12/18/17 06:25 Absolute Basophils 0.1 K/uL (0-0.5) 12/18/17 06:25 Sodium 140 mmol/L (136-145) 12/18/17 06:25 Potassium 3.3 mmol/L (3.5-5.1) L 12/18/17 06:25 Chloride 108 mmol/L (98-107) H 12/18/17 06:25 Carbon Dioxide 24 mmol/L (21-32) 12/18/17 06:25 BUN 12 mg/dL (7-18) 12/18/17 06:25 Creatinine 0.50 mg/dL (0.55-1.3) L 12/18/17 06:25 Estimated GFR > 90 mL/min (=/>90) 12/18/17 06:25 Glucose 80 mg/dL (74-106) 12/18/17 06:25 Calcium 8.9 mg/dL (8.5-10.1) 12/18/17 06:25 Magnesium 1.9 mg/dL (1.8-2.4) 12/16/17 05:54 Albumin 2.6 g/dL (3.4-5.0) L 12/18/17 06:25 Prealbumin 14.3 mg/dL (20-40) L 12/18/17 06:25 Urine Color Yellow 12/15/17 20:10 Urine Appearance Clear 12/15/17 20:10 Urine pH 8.0 (5.0-7.0) H 12/15/17 20:10 Ur Specific [place] <=1.005 (1.005-1.030) 12/15/17 20:10 Urine Ketones Negative (NEG) 12/15/17 20:10 Urine Blood Negative (NEG) 12/15/17 20:10 Urine Nitrite Negative (NEG) 12/15/17 20:10 Urine Bilirubin Negative (NEG) 12/15/17 20:10 Urine Urobilinogen 1.0 mg/dL (0.2-1.0) 12/15/17 20:10 Ur Leukocyte Esterase Negative (NEG) 12/15/17 20:10 Urine RBC None seen /HPF (NONE SEEN) 12/15/17 20:10 Urine WBC <5 /HPF (<5) 12/15/17 20:10 Ur Squamous Epith Cells [facility] 12/15/17 20:10 Ur Urothelial Cells <5 /HPF (NONE SEEN) 12/15/17 20:10 Urine Bacteria <20 /HPF (<20) 12/15/17 20:10 Urine Culture Reflexed Not needed 12/15/17 20:10 Urine Glucose Negative (NEG) 12/15/17 20:10 Urine Total Protein Negative (NEG) 12/15/17 20:10 Weight: 128 lb 9.6 oz Wound Present: No Closed Surgical Incision Present: No Negative Pressure Wound Therapy Present: No Physician Update: She is medically stable with mildly low Hgb. She is taking hemocyte plus. She has Ecoli cultures but negative urine. She is working well with cognitive impairment. She is ambulating about 25' and is limited due to pain. She is at contact guard assistance. She will restart Eliquis and have EGD as an outpatient by Dr. Hale. Functional Improvement: pt is demonstrating progress; however, she continues to be limited by pain. As pain reduces, pt's functional performance should improve. Functional Improvement Occupational Therapy: Pt can benifit for further therapy to increase pt's overall weakness for UB strengthening for adl tasks. cont to train and educate the pt on energy conservation techniques for safety and for LB dress tasks. cont to increase pt's overal endurance and activity tolernace for adl tasks. Cont with the POC and the goals by the supervising OTR. Speech Therapy Update: Mild to moderate cognitive impairment. Min to MOD A for memory and PS. Verbal expression and SUpervision level. Comprehension at MIN A Summary: Patient's care plan and chcf goals have been reviewed and revised as necessary. Please see the Rehabilitation Signature page for all necessary signatures.
--- NOTE | 2017-12-19 14:16 | FAST ---
ENCOUNTER DATE AND TIME: 12/19/2017 08:00 (CDT) NAME BRO GRIMM DATE OF : 1945 DATE OF ADMISSION: 12/15/2017 15:20 (CDT) PHONE: AGE: 72 SSN# [id number] GENDER: Female ENCOUNTER PHYSICIAN: Dr. Joshua Melendez M.D. ADMISSION DIAGNOSIS: - Orthopaedic Disorders 08 - Pelvic Fracture (08.3) Vertebral Fx. EATING: Activity did not occur on this shift EATING - SCORE: 0-UNK GROOMING: Comb/brush hair Oral care Wash, rinse, and dry face Wash, rinse, and dry hands GROOMING - STEP 1: Does the patient require assistance when grooming? Yes. GROOMING - STEP 2: Does the patient require the assistance of a helper? Yes. GROOMING - STEP 3: How much assistance does the patient require from the helper? Incidental touching assistance from the helper while grooming GROOMING - SCORE: 4-MIN BATHING: Abdomen Buttocks Chest Left arm Left lower leg and foot Left upper leg Perineal area Right arm Right lower leg and foot Right upper leg BATHING - STEP 1: Does the patient require assistance when bathing? Yes. BATHING - STEP 2: Does the patient require the assistance of a helper? Yes. BATHING - STEP 3: How much assistance does the patient require from the helper? Only incidental help such as placement of a wash cloth in his/her hand a few times as s/he bathes OR help to bathe just one or two areas of the body BATHING - SCORE: 4-MIN DRESSING - UPPER BODY: Button down/zippered sweater (four steps) T-shirt/pullover shirt (four steps) ARTICLES SCORE Total number of steps: 8 DRESSING - UPPER BODY - STEP 1: Does the patient require help when dressing above the waist? Yes. DRESSING - UPPER BODY - STEP 2: Does the patient require the assistance of a helper? Yes. DRESSING - UPPER BODY - STEP 3: Does the helper touch the patient while dressing? Yes. DRESSING - UPPER BODY - STEP 4: How many of the total steps does the patient complete on his/her own? 7 DRESSING - UPPER BODY - SCORE: 4-MIN DRESSING - LOWER BODY: Elastic waist pants (three steps) Slip-on shoe - Left foot (one step) Slip-on shoe - Right foot (one step) Sock - Left foot (one step) Sock - Right foot (one step) Underwear (three steps) ARTICLES SCORE Total number of steps: 10 DRESSING - LOWER BODY - STEP 1: Does the patient require help when dressing below the waist? Yes. DRESSING - LOWER BODY - STEP 2: Does the patient require the assistance of a helper? Yes. DRESSING - LOWER BODY - STEP 3: Does the helper touch the patient while dressing? Yes. DRESSING - LOWER BODY - STEP 4: How many of the total steps does the patient complete on his/her own? 5 DRESSING - LOWER BODY - SCORE: 3-MOD TOILETING: Activity did not occur on this shift TOILETING - SCORE: 0-UNK BLADDER MANAGEMENT: Activity did not occur on this shift BLADDER MANAGEMENT - SCORE: 7-IND BOWEL MANAGEMENT: Activity did not occur on this shift BOWEL MANAGEMENT - SCORE: 7-IND TRANSFERS: BED, CHAIR, WHEELCHAIR: Activity did not occur on this shift TRANSFERS: BED, CHAIR, WHEELCHAIR - SCORE: 0-UNK TRANSFERS: TOILET: Activity did not occur on this shift TRANSFERS: TOILET - SCORE: 0-UNK TRANSFERS: SHOWER: TRANSFERS: SHOWER - STEP 1: Does the patient require assistance with shower transfers? Yes. TRANSFERS: SHOWER - STEP 2: Does the patient require the assistance of a helper? Yes. TRANSFERS: SHOWER - STEP 3: How much assistance does the patient require from the helper? More than incidental help TRANSFERS: SHOWER - STEP 4: How much more help does the patient require from the helper? Lifting the patient either up OR down fr om the wheelchair onto the shower chair TRANSFERS: SHOWER - SCORE: 3-MOD TRANSFERS: TUB: Activity did not occur on this shift TRANSFERS: TUB - SCORE: 0-UNK LOCOMOTION: WALK: Activity did not occur on this shift LOCOMOTION: WALK - SCORE: 0-UNK LOCOMOTION: WHEELCHAIR: Activity did not occur on this shift LOCOMOTION: WHEELCHAIR - SCORE: 0-UNK LOCOMOTION: STAIRS: Activity did not occur on this shift LOCOMOTION: STAIRS - SCORE: 0-UNK COMPREHENSION: COMPREHENSION - SCORE: 0-UNK EXPRESSION EXPRESSION - SCORE: 0-UNK SOCIAL INTERACTION: SOCIAL INTERACTION - SCORE: 0-UNK PROBLEM SOLVING: PROBLEM SOLVING - SCORE: 0-UNK MEMORY: MEMORY - SCORE: 0-UNK SIGNATURE PANEL: The following modified sections: Eating - Score, Grooming - Score, Bathing - Score, Dressing - Upper Body - Score, Dressing - Lower Body - Score, Toileting - Score, Transfers: Bed, Chair, Wheelchair - S core, Transfers: Toilet - Score, Transfers: Shower - Score, Transfers: Tub - Score, Comprehension - S core, Expression - Score, Social Interaction - Score, Problem Solving - Score, Memory - Score were [e lectronically] signed by QUINCY Durant on FriDec 19 2017 14:15:03 [facility]-0500 ([facility] Time)
--- NOTE | 2017-12-19 18:20 | FAST ---
ENCOUNTER DATE AND TIME: 12/16/2017 08:00 (CDT) NAME BRO GRIMM DATE OF : 1945 DATE OF ADMISSION: 12/15/2017 15:20 (CDT) PHONE: AGE: 72 SSN# [id number] GENDER: Female ENCOUNTER PHYSICIAN: Dr. Joshua Melendez M.D. ADMISSION DIAGNOSIS: - Orthopaedic Disorders 08 - Pelvic Fracture (08.3) Vertebral Fx. EATING: EATING - STEP 1: Does the patient require assistance when eating? No. EATING - SCORE: 7-IND GROOMING: Comb/brush hair Oral care Wash, rinse, and dry face Wash, rinse, and dry hands GROOMING - STEP 1: Does the patient require assistance when grooming? No. GROOMING - SCORE: 7-IND BATHING: Abdomen Buttocks Chest Left arm Left lower leg and foot Left upper leg Perineal area Right arm Right lower leg and foot Right upper leg BATHING - STEP 1: Does the patient require assistance when bathing? Yes. BATHING - STEP 2: Does the patient require the assistance of a helper? Yes. BATHING - STEP 3: How much assistance does the patient require from the helper? More than just incidental help BATHING - STEP 4: What percent of the body parts did the patient bathe WITHOUT the helper? Half or more of the body par ts BATHING - SCORE: 3-MOD DRESSING - UPPER BODY: Button down shirt or blouse - NOT tucked in (four steps) T-shirt/pullover shirt (four steps) ARTICLES SCORE Total number of steps: 8 DRESSING - UPPER BODY - STEP 1: Does the patient require help when dressing above the waist? Yes. DRESSING - UPPER BODY - STEP 2: Does the patient require the assistance of a helper? Yes. DRESSING - UPPER BODY - STEP 3: Does the helper touch the patient while dressing? Yes. DRESSING - UPPER BODY - STEP 4: How many of the total steps does the patient complete on his/her own? 6 DRESSING - UPPER BODY - SCORE: 4-MIN DRESSING - LOWER BODY: Elastic waist pants (three steps) Sock - Left foot (one step) Sock - Right foot (one step) Underwear (three steps) ARTICLES SCORE Total number of steps: 8 DRESSING - LOWER BODY - STEP 1: Does the patient require help when dressing below the waist? Yes. DRESSING - LOWER BODY - STEP 2: Does the patient require the assistance of a helper? Yes. DRESSING - LOWER BODY - STEP 3: Does the helper touch the patient while dressing? Yes. DRESSING - LOWER BODY - STEP 4: How many of the total steps does the patient complete on his/her own? 0 DRESSING - LOWER BODY - STEP 5: Does patient require total assistance for dressing below the waist such as the helper holding clothin g and performing basically all the activities? Yes. DRESSING - LOWER BODY - SCORE: 1-DEP TOILETING: Activity did not occur on this shift TOILETING - SCORE: 0-UNK BLADDER MANAGEMENT: Activity did not occur on this shift BLADDER MANAGEMENT - SCORE: 7-IND BOWEL MANAGEMENT: Activity did not occur on this shift BOWEL MANAGEMENT - SCORE: 7-IND TRANSFERS: BED, CHAIR, WHEELCHAIR: Activity did not occur on this shift TRANSFERS: BED, CHAIR, WHEELCHAIR - SCORE: 0-UNK TRANSFERS: TOILET: Activity did not occur on this shift TRANSFERS: TOILET - SCORE: 0-UNK TRANSFERS: SHOWER: TRANSFERS: SHOWER - STEP 1: Does the patient require assistance with shower transfers? Yes. TRANSFERS: SHOWER - STEP 2: Does the patient require the assistance of a helper? Yes. TRANSFERS: SHOWER - STEP 3: How much assistance does the patient require from the helper? More than incidental help TRANSFERS: SHOWER - STEP 4: How much more help does the patient require from the helper? Lifting the patient up AND down from the wheelchair onto the shower chair TRANSFERS: SHOWER - SCORE: 2-MAX TRANSFERS: TUB: Activity did not occur on this shift TRANSFERS: TUB - SCORE: 0-UNK LOCOMOTION: WALK: Activity did not occur on this shift LOCOMOTION: WALK - SCORE: 0-UNK LOCOMOTION: WHEELCHAIR: Activity did not occur on this shift LOCOMOTION: WHEELCHAIR - SCORE: 0-UNK LOCOMOTION: STAIRS: Activity did not occur on this shift LOCOMOTION: STAIRS - SCORE: 0-UNK COMPREHENSION: COMPREHENSION: TYPE: Both COMPREHENSION - STEP 1: Does the patient require help to understand complex and abstract ideas (such as current events, finan lesvia, discharge planning, medical issues, relationships, etc)? No. COMPREHENSION - STEP 2: Does the patient need extra time, require an assistive device (such as glasses for visual comprehensi on or a hearing aid for auditory comprehension) or does s/he have mild difficulty understanding compl ex and abstract information? No. COMPREHENSION - SCORE: 7-IND EXPRESSION EXPRESSION: TYPE: Both EXPRESSION - STEP 1: Does the patient require help expressing complex and abstract ideas (such as current events, finances , discharge planning, medical issues, relationships, etc)? No. EXPRESSION - STEP 2: Does the patient need extra time, require an assistive device (such as augmentive communication syste m or a communication board), OR does s/he have mild difficulty expressing complex and abstract ideas (including mild dysarthria or mild word-find problems)? No. EXPRESSION - SCORE: 7-IND SOCIAL INTERACTION: SOCIAL INTERACTION - STEP 1: Does the patient require a helper to interact with others in social and therapeutic situations? No. SOCIAL INTERACTION - STEP 2: Does the patient need extra time in social situations, OR does s/he interact with staff, other patien ts, and family members ONLY in structured environments, OR does s/he require medication for social in teraction? Yes, patient needs extra time SOCIAL INTERACTION - SCORE: 6-STACIE PROBLEM SOLVING: PROBLEM SOLVING - STEP 1: Does the patient need help to solve complex problems such as managing a checking account or confronti ng interpersonal problems? No. PROBLEM SOLVING - STEP 2: Does the patient require extra time to make decisions or solve problems, OR does s/he have slight dif ficulty reading, initiating, or self-correcting in unfamiliar situations? Yes, patient needs extra ti me. PROBLEM SOLVING - SCORE: 6-STACIE MEMORY: MEMORY - STEP 1: Does the patient need help to remember frequently encountered people, daily routines, and executing r equests? No. MEMORY - STEP 2: Does the patient have slight difficulty recognizing frequently encountered people, daily routines, or executing requests without the need for repetition or using self-initiated or environmental cues to remember? Yes. MEMORY - SCORE: 6-STACIE SIGNATURE PANEL: The following modified sections: Eating - Score, Grooming - Score, Bathing - Score, Dressing - Upper Body - Score, Dressing - Lower Body - Score, Toileting - Score, Transfers: Bed, Chair, Wheelchair - S core, Transfers: Toilet - Score, Transfers: Tub - Score, Transfers: Shower - Score, Comprehension - S core, Expression - Score, Social Interaction - Score, Problem Solving - Score, Memory - Score were [e lectronically] signed by Kim Galindo OT on FriDec 19 2017 18:19:35 T-0500 (Central Daylight T [place])
[2017-12-19] MEDS: MAGNESIUM OXIDE 400 MG TAB PO SCH (19:37)
[2017-12-19] MEDS: DOCUSATE NA/SENNA CONC 1 TAB PO PRN (19:37)
[2017-12-19] MEDS: APIXABAN 2.5 MG TABLET PO SCH (19:37)
[2017-12-19] MEDS: MELATONIN 3 MG TABLET PO PRN (19:38)
[2017-12-20] MEDS: TRAMADOL HCL 50 MG TAB PO PRN ×5 (01:35→19:23)
[2017-12-20] MEDS: HYDROCODONE/APAP 10/325 TAB PO PRN ×5 (04:29→22:56)
[2017-12-20] MEDS: ATENOLOL 50 MG TAB PO SCH (05:17)
[2017-12-20] MEDS: ENSURE ENLIVE 237 ML CAN PO SCH ×2 (08:00→19:14)
[2017-12-20] MEDS: LIDOCAINE 5% PATCH TOP SCH (08:12)
[2017-12-20] MEDS: DOCUSATE NA 100 MG CAP PO SCH ×2 (08:15→19:14)
[2017-12-20] MEDS: POTASSIUM CL SA 10 MEQ TAB PO SCH (08:15)
[2017-12-20] MEDS: APIXABAN 2.5 MG TABLET PO SCH ×2 (08:15→19:13)
[2017-12-20] MEDS: MAGNESIUM OXIDE 400 MG TAB PO SCH ×2 (08:15→19:13)
[2017-12-20] MEDS: CRANBERRY FRUIT EXTRACT 200 MG CAP PO SCH ×2 (08:16→19:13)
[2017-12-20] MEDS: DULOXETINE 20 MG CAP PO SCH (08:16)
[2017-12-20] MEDS: FERROUS SULFATE 325 MG TAB PO SCH (08:16)
[2017-12-20] MEDS: ASPIRIN 81 MG CHEWABLE TABLET PO SCH (08:16)
[2017-12-20] MEDS: PANTOPRAZOLE 40MG TABLET PO SCH (08:17)
[2017-12-20] MEDS: FE SULF/FA/VIT B COMP & C TAB PO SCH (08:17)
[2017-12-20] MEDS: LISINOPRIL 5 MG TAB PO SCH (08:17)
[2017-12-20] MEDS: PROMOD 30 ML DOSE PO SCH ×2 (08:19→19:16)
[2017-12-20] MEDS: MELATONIN 3 MG TABLET PO PRN (19:16)
--- NOTE | 2017-12-20 23:26 | FAST ---
SHIFT START DATE/TIME: 12/19/2017 19:00 (CDT) SHIFT END DATE/TIME: 12/20/2017 07:00 (CDT) NAME BRO GRIMM DATE OF : 1945 DATE OF ADMISSION: 12/15/2017 15:20 (CDT) PHONE: AGE: 72 N# [id number] GENDER: Female ENCOUNTER PHYSICIAN: Dr. Joshua Melendez M.D. ADMISSION DIAGNOSIS: - Orthopaedic Disorders 08 - Pelvic Fracture (08.3) Vertebral Fx. EATING: Activity did not occur on this shift EATING - SCORE: 0-UNK GROOMING: Comb/brush hair Oral care GROOMING - STEP 1: Does the patient require assistance when grooming? Yes. GROOMING - STEP 2: Does the patient require the assistance of a helper? Yes. GROOMING - STEP 3: How much assistance does the patient require from the helper? Cuing, coaxing, instructions, or encour agement for completion of grooming GROOMING - SCORE: 5-SUP BATHING: Activity did not occur on this shift BATHING - SCORE: 0-UNK DRESSING - UPPER BODY: Patient is not dressing in public clothing ARTICLES SCORE Total number of steps: 0 DRESSING - UPPER BODY - SCORE: 0-UNK DRESSING - LOWER BODY: Patient is not dressing in public clothing ARTICLES SCORE Total number of steps: 0 DRESSING - LOWER BODY - SCORE: 0-UNK TOILETING: TOILETING - STEP 1: Does the patient require assistance with toileting? Yes. TOILETING - STEP 2: Does the patient require the assistance of a helper? Yes. TOILETING - STEP 3: How much assistance does the patient require from the helper? Hands-on assistance from the helper TOILETING - STEP 4: Of the 3 tasks: 1) Adjusting clothing prior to use, 2) Cleansing of perineal area, 3) Adjusting clot vinicio after use; How many tasks does the patient perform WITHOUT assistance of the helper? No tasks; alina bird performs all three tasks TOILETING - SCORE: 1-DEP BLADDER MANAGEMENT: BLADDER MANAGEMENT - STEP 1: Does the patient control the bladder completely and intentionally without equipment or devices or med ications, and is always continent? No. BLADDER MANAGEMENT - STEP 2: Does the patient require the assistance of a helper? Yes. BLADDER MANAGEMENT - STEP 3: How much assistance does the patient require from the helper? Only supervision, stand-by, cuing, or c oaxing BLADDER MANAGEMENT - SCORE: 5-SUP BOWEL MANAGEMENT: Activity did not occur on this shift BOWEL MANAGEMENT - SCORE: 7-IND TRANSFERS: BED, CHAIR, WHEELCHAIR: TRANSFERS: BED, CHAIR, WHEELCHAIR - STEP 1: Does the patient require assistance with bed, chair, or wheelchair transfers? Yes. TRANSFERS: BED, CHAIR, WHEELCHAIR - STEP 2: Does the patient require the assistance of a helper? Yes. TRANSFERS: BED, CHAIR, WHEELCHAIR - STEP 3: How much assistance does the patient require from the helper? Lifting of the legs TRANSFERS: BED, CHAIR, WHEELCHAIR - STEP 4: How many legs does the patient require the helper to lift? both legs TRANSFERS: BED, CHAIR, WHEELCHAIR - SCORE: 3-MOD TRANSFERS: TOILET: TRANSFERS: TOILET - STEP 1: Does the patient require assistance with toilet transfers? Yes. TRANSFERS: TOILET - STEP 2: Does the patient require the assistance of a helper? Yes. TRANSFERS: TOILET - STEP 3: How much assistance does the patient require from the helper? Patient performs half or more of the tr ansferring tasks TRANSFERS: TOILET - STEP 4: Does the patient need only incidental help such as contact guard or steadying during toilet transfer? No. Patient needs more than incidental help TRANSFERS: TOILET - SCORE: 3-MOD TRANSFERS: SHOWER: Activity did not occur on this shift TRANSFERS: SHOWER - SCORE: 0-UNK TRANSFERS: TUB: Activity did not occur on this shift TRANSFERS: TUB - SCORE: 0-UNK LOCOMOTION: WALK: Activity did not occur on this shift LOCOMOTION: WALK - SCORE: 0-UNK LOCOMOTION: WHEELCHAIR: Activity did not occur on this shift LOCOMOTION: WHEELCHAIR - SCORE: 0-UNK COMPREHENSION: COMPREHENSION: TYPE: Both COMPREHENSION - STEP 1: Does the patient require help to understand complex and abstract ideas (such as current events, finan lesvia, discharge planning, medical issues, relationships, etc)? Yes. COMPREHENSION - STEP 2: Does the patient require help to understand questions or statements about basic needs or ideas (such as hunger, thirst, sleep, safety, daily schedule, room location, or discomfort) half or more of the t cy[place]? No. COMPREHENSION - STEP 3: How often does the patient need help to understand directions and conversation about basic needs? 10% - 24% of the time COMPREHENSION - SCORE: 4-MIN EXPRESSION EXPRESSION: TYPE: Both EXPRESSION - STEP 1: Does the patient require help expressing complex and abstract ideas (such as current events, finances , discharge planning, medical issues, relationships, etc)? No. EXPRESSION - STEP 2: Does the patient need extra time, require an assistive device (such as augmentive communication syste m or a communication board), OR does s/he have mild difficulty expressing complex and abstract ideas (including mild dysarthria or mild word-find problems)? Yes. EXPRESSION - SCORE: 6-STACIE SOCIAL INTERACTION: SOCIAL INTERACTION - STEP 1: Does the patient require a helper to interact with others in social and therapeutic situations? No. SOCIAL INTERACTION - STEP 2: Does the patient need extra time in social situations, OR does s/he interact with staff, other patien ts, and family members ONLY in structured environments, OR does s/he require medication for social in teraction? Yes, patient needs extra time SOCIAL INTERACTION - SCORE: 6-STACIE PROBLEM SOLVING: PROBLEM SOLVING - STEP 1: Does the patient need help to solve complex problems such as managing a checking account or confronti ng interpersonal problems? No. PROBLEM SOLVING - STEP 2: Does the patient require extra time to make decisions or solve problems, OR does s/he have slight dif ficulty reading, initiating, or self-correcting in unfamiliar situations? Yes, patient needs extra ti me. PROBLEM SOLVING - SCORE: 6-STACIE MEMORY: MEMORY - STEP 1: Does the patient need help to remember frequently encountered people, daily routines, and executing r equests? No. MEMORY - STEP 2: Does the patient have slight difficulty recognizing frequently encountered people, daily routines, or executing requests without the need for repetition or using self-initiated or environmental cues to remember? Yes. MEMORY - SCORE: 6-STACIE
--- NOTE | 2017-12-20 23:26 | FAST ---
ENCOUNTER DATE AND TIME: 12/20/2017 08:00 (CDT) NAME BRO GRIMM DATE OF : 1945 DATE OF ADMISSION: 12/15/2017 15:20 (CDT) PHONE: AGE: 72 SSN# [id number] GENDER: Female ENCOUNTER PHYSICIAN: Dr. Joshua Melendez M.D. ADMISSION DIAGNOSIS: - Orthopaedic Disorders 08 - Pelvic Fracture (08.3) Vertebral Fx. EATING: Activity did not occur on this shift EATING - SCORE: 0-UNK GROOMING: Comb/brush hair Oral care Wash, rinse, and dry face Wash, rinse, and dry hands GROOMING - STEP 1: Does the patient require assistance when grooming? No. GROOMING - SCORE: 7-IND BATHING: Activity did not occur on this shift BATHING - SCORE: 0-UNK DRESSING - UPPER BODY: Activity did not occur on this shift ARTICLES SCORE Total number of steps: 0 DRESSING - UPPER BODY - SCORE: 0-UNK DRESSING - LOWER BODY: Activity did not occur on this shift ARTICLES SCORE Total number of steps: 0 DRESSING - LOWER BODY - SCORE: 0-UNK TOILETING: TOILETING - STEP 1: Does the patient require assistance with toileting? Yes. TOILETING - STEP 2: Does the patient require the assistance of a helper? Yes. TOILETING - STEP 3: How much assistance does the patient require from the helper? Hands-on assistance from the helper TOILETING - STEP 4: Of the 3 tasks: 1) Adjusting clothing prior to use, 2) Cleansing of perineal area, 3) Adjusting clot vinicio after use; How many tasks does the patient perform WITHOUT assistance of the helper? Three tasks with steadying assistance from the helper TOILETING - SCORE: 4-MIN BLADDER MANAGEMENT: Activity did not occur on this shift BLADDER MANAGEMENT - SCORE: 7-IND BOWEL MANAGEMENT: Activity did not occur on this shift BOWEL MANAGEMENT - SCORE: 7-IND TRANSFERS: BED, CHAIR, WHEELCHAIR: Activity did not occur on this shift TRANSFERS: BED, CHAIR, WHEELCHAIR - SCORE: 0-UNK TRANSFERS: TOILET: TRANSFERS: TOILET - STEP 1: Does the patient require assistance with toilet transfers? Yes. TRANSFERS: TOILET - STEP 2: Does the patient require the assistance of a helper? Yes. TRANSFERS: TOILET - STEP 3: How much assistance does the patient require from the helper? Patient performs half or more of the tr ansferring tasks TRANSFERS: TOILET - STEP 4: Does the patient need only incidental help such as contact guard or steadying during toilet transfer? Yes. TRANSFERS: TOILET - SCORE: 4-MIN TRANSFERS: SHOWER: Activity did not occur on this shift TRANSFERS: SHOWER - SCORE: 0-UNK TRANSFERS: TUB: Activity did not occur on this shift TRANSFERS: TUB - SCORE: 0-UNK LOCOMOTION: WALK: Activity did not occur on this shift LOCOMOTION: WALK - SCORE: 0-UNK LOCOMOTION: WHEELCHAIR: Activity did not occur on this shift LOCOMOTION: WHEELCHAIR - SCORE: 0-UNK LOCOMOTION: STAIRS: Activity did not occur on this shift LOCOMOTION: STAIRS - SCORE: 0-UNK COMPREHENSION: COMPREHENSION - SCORE: 0-UNK EXPRESSION EXPRESSION - SCORE: 0-UNK SOCIAL INTERACTION: SOCIAL INTERACTION - SCORE: 0-UNK PROBLEM SOLVING: PROBLEM SOLVING - SCORE: 0-UNK MEMORY: MEMORY - SCORE: 0-UNK SIGNATURE PANEL: The following modified sections: Eating - Score, Grooming - Score, Bathing - Score, Dressing - Upper Body - Score, Dressing - Lower Body - Score, Toileting - Score, Transfers: Bed, Chair, Wheelchair - S core, Transfers: Toilet - Score, Transfers: Shower - Score, Transfers: Tub - Score, Comprehension - S core, Expression - Score, Social Interaction - Score, Problem Solving - Score, Memory - Score were [e lectronically] signed by QUINCY Durant on Sat Dec 20 2017 12:19:07 T-0500 ([facility] Time)
--- NOTE | 2017-12-20 23:26 | FAST ---
SHIFT START DATE/TIME: 12/20/2017 07:00 (CDT) SHIFT END DATE/TIME: 12/20/2017 19:00 (CDT) NAME BRO GRIMM DATE OF : 1945 DATE OF ADMISSION: 12/15/2017 15:20 (CDT) PHONE: AGE: 72 N# [id number] GENDER: Female ENCOUNTER PHYSICIAN: Dr. Joshua Melendez M.D. ADMISSION DIAGNOSIS: - Orthopaedic Disorders 08 - Pelvic Fracture (08.3) Vertebral Fx. EATING: EATING - STEP 1: Does the patient require assistance when eating? Yes. EATING - STEP 2: Does the patient require the assistance of a helper? No, patient only requires an assistive device, O R s/he takes more than reasonable time to eat, OR there is a safety concern, OR s/he requires modifie d food consistency EATING - SCORE: 6-STACIE GROOMING: Comb/brush hair Oral care Wash, rinse, and dry face Wash, rinse, and dry hands GROOMING - STEP 1: Does the patient require assistance when grooming? Yes. GROOMING - STEP 2: Does the patient require the assistance of a helper? No. The patient only requires an assistive devic e, OR takes more than reasonable time to groom, OR there is a concern for safety as the patient groom s GROOMING - SCORE: 6-STACIE BATHING: Activity did not occur on this shift BATHING - SCORE: 0-UNK DRESSING - UPPER BODY: T-shirt/pullover shirt (four steps) ARTICLES SCORE Total number of steps: 4 DRESSING - UPPER BODY - STEP 1: Does the patient require help when dressing above the waist? Yes. DRESSING - UPPER BODY - STEP 2: Does the patient require the assistance of a helper? Yes. DRESSING - UPPER BODY - STEP 3: Does the helper touch the patient while dressing? No. DRESSING - UPPER BODY - SCORE: 5-SUP DRESSING - LOWER BODY: ARTICLES SCORE Total number of steps: 3 DRESSING - LOWER BODY - STEP 1: Does the patient require help when dressing below the waist? Yes. DRESSING - LOWER BODY - STEP 2: Does the patient require the assistance of a helper? Yes. DRESSING - LOWER BODY - STEP 3: Does the helper touch the patient while dressing? Yes. DRESSING - LOWER BODY - STEP 4: How many of the total steps does the patient complete on his/her own? 3 DRESSING - LOWER BODY - SCORE: 4-MIN TOILETING: TOILETING - STEP 1: Does the patient require assistance with toileting? Yes. TOILETING - STEP 2: Does the patient require the assistance of a helper? Yes. TOILETING - STEP 3: How much assistance does the patient require from the helper? Hands-on assistance from the helper TOILETING - STEP 4: Of the 3 tasks: 1) Adjusting clothing prior to use, 2) Cleansing of perineal area, 3) Adjusting clot vinicio after use; How many tasks does the patient perform WITHOUT assistance of the helper? Two tasks TOILETING - SCORE: 3-MOD TOILETING - COMMENTS: Patient states she cannot clean perineal area BLADDER MANAGEMENT: BLADDER MANAGEMENT - STEP 1: Does the patient control the bladder completely and intentionally without equipment or devices or med ications, and is always continent? No. BLADDER MANAGEMENT - STEP 2: Does the patient require the assistance of a helper? No, patient requires and independently uses an a ssistive device, such as a urinal, bedpan, bedside commode, catheter, absorbent pad, or collecting de vice BLADDER MANAGEMENT - SCORE: 6-STACIE BOWEL MANAGEMENT: Activity did not occur on this shift BOWEL MANAGEMENT - SCORE: 7-IND TRANSFERS: BED, CHAIR, WHEELCHAIR: TRANSFERS: BED, CHAIR, WHEELCHAIR - STEP 1: Does the patient require assistance with bed, chair, or wheelchair transfers? Yes. TRANSFERS: BED, CHAIR, WHEELCHAIR - STEP 2: Does the patient require the assistance of a helper? Yes. TRANSFERS: BED, CHAIR, WHEELCHAIR - STEP 3: How much assistance does the patient require from the helper? Steadying/guiding assistance TRANSFERS: BED, CHAIR, WHEELCHAIR - SCORE: 4-MIN TRANSFERS: TOILET: TRANSFERS: TOILET - STEP 1: Does the patient require assistance with toilet transfers? Yes. TRANSFERS: TOILET - STEP 2: Does the patient require the assistance of a helper? Yes. TRANSFERS: TOILET - STEP 3: How much assistance does the patient require from the helper? Patient performs half or more of the tr ansferring tasks TRANSFERS: TOILET - STEP 4: Does the patient need only incidental help such as contact guard or steadying during toilet transfer? Yes. TRANSFERS: TOILET - SCORE: 4-MIN TRANSFERS: SHOWER: Activity did not occur on this shift TRANSFERS: SHOWER - SCORE: 0-UNK TRANSFERS: TUB: Activity did not occur on this shift TRANSFERS: TUB - SCORE: 0-UNK LOCOMOTION: WALK: Activity did not occur on this shift LOCOMOTION: WALK - SCORE: 0-UNK LOCOMOTION: WHEELCHAIR: Activity did not occur on this shift LOCOMOTION: WHEELCHAIR - SCORE: 0-UNK COMPREHENSION: COMPREHENSION: TYPE: Both COMPREHENSION - STEP 1: Does the patient require help to understand complex and abstract ideas (such as current events, finan lesvia, discharge planning, medical issues, relationships, etc)? No. COMPREHENSION - STEP 2: Does the patient need extra time, require an assistive device (such as glasses for visual comprehensi on or a hearing aid for auditory comprehension) or does s/he have mild difficulty understanding compl ex and abstract information? Yes. COMPREHENSION - SCORE: 6-STACIE EXPRESSION EXPRESSION: TYPE: Both EXPRESSION - STEP 1: Does the patient require help expressing complex and abstract ideas (such as current events, finances , discharge planning, medical issues, relationships, etc)? No. EXPRESSION - STEP 2: Does the patient need extra time, require an assistive device (such as augmentive communication syste m or a communication board), OR does s/he have mild difficulty expressing complex and abstract ideas (including mild dysarthria or mild word-find problems)? Yes. EXPRESSION - SCORE: 6-STACIE SOCIAL INTERACTION: SOCIAL INTERACTION - STEP 1: Does the patient require a helper to interact with others in social and therapeutic situations? No. SOCIAL INTERACTION - STEP 2: Does the patient need extra time in social situations, OR does s/he interact with staff, other patien ts, and family members ONLY in structured environments, OR does s/he require medication for social in teraction? Yes, patient needs extra time SOCIAL INTERACTION - SCORE: 6-STACIE PROBLEM SOLVING: PROBLEM SOLVING - STEP 1: Does the patient need help to solve complex problems such as managing a checking account or confronti ng interpersonal problems? No. PROBLEM SOLVING - STEP 2: Does the patient require extra time to make decisions or solve problems, OR does s/he have slight dif ficulty reading, initiating, or self-correcting in unfamiliar situations? Yes, patient needs extra ti me. PROBLEM SOLVING - SCORE: 6-STACIE MEMORY: MEMORY - STEP 1: Does the patient need help to remember frequently encountered people, daily routines, and executing r equests? No. MEMORY - STEP 2: Does the patient have slight difficulty recognizing frequently encountered people, daily routines, or executing requests without the need for repetition or using self-initiated or environmental cues to remember? Yes. MEMORY - SCORE: 6-STACIE SIGNATURE PANEL: The following modified sections: Eating - Score, Grooming - Score, Bathing - Score, Dressing - Upper Body - Score, Dressing - Lower Body - Score, Toileting - Score, Toileting - Comments:, Bladder Manage ment - Score, Bowel Management - Score, Transfers: Bed, Chair, Wheelchair - Score, Transfers: Toilet - Score, Transfers: Shower - Score, Transfers: Tub - Score, Locomotion: Walk - Score, Locomotion: Whe elchair - Score, Comprehension - Score, Expression - Score, Social Interaction - Score, Problem Solvi ng - Score, Memory - Score were [electronically] signed by Shubham Camarillo on Sat Dec 20 2017 10:05:45 GMT -0500 ([facility] Daylight Time)
--- NOTE | 2017-12-20 23:27 | FAST ---
ENCOUNTER DATE AND TIME: 12/20/2017 08:00 (CDT) NAME BRO GRIMM DATE OF : 1945 DATE OF ADMISSION: 12/15/2017 15:20 (CDT) PHONE: AGE: 72 SSN# [id number] GENDER: Female ENCOUNTER PHYSICIAN: Dr. Joshua Melendez M.D. ADMISSION DIAGNOSIS: - Orthopaedic Disorders 08 - Pelvic Fracture (08.3) Vertebral Fx. EATING: Activity did not occur on this shift EATING - SCORE: 0-UNK GROOMING: Activity did not occur on this shift GROOMING - SCORE: 0-UNK BATHING: Activity did not occur on this shift BATHING - SCORE: 0-UNK DRESSING - UPPER BODY: Activity did not occur on this shift Patient is not dressing in public clothing ARTICLES SCORE Total number of steps: 0 DRESSING - UPPER BODY - SCORE: 0-UNK DRESSING - LOWER BODY: Activity did not occur on this shift Patient is not dressing in public clothing ARTICLES SCORE Total number of steps: 0 DRESSING - LOWER BODY - SCORE: 0-UNK TOILETING: Activity did not occur on this shift TOILETING - SCORE: 0-UNK BLADDER MANAGEMENT: Activity did not occur on this shift BLADDER MANAGEMENT - SCORE: 7-IND BOWEL MANAGEMENT: Activity did not occur on this shift BOWEL MANAGEMENT - SCORE: 7-IND TRANSFERS: BED, CHAIR, WHEELCHAIR: TRANSFERS: BED, CHAIR, WHEELCHAIR - STEP 1: Does the patient require assistance with bed, chair, or wheelchair transfers? Yes. TRANSFERS: BED, CHAIR, WHEELCHAIR - STEP 2: Does the patient require the assistance of a helper? Yes. TRANSFERS: BED, CHAIR, WHEELCHAIR - STEP 3: How much assistance does the patient require from the helper? Steadying/guiding assistance TRANSFERS: BED, CHAIR, WHEELCHAIR - SCORE: 4-MIN TRANSFERS: TOILET: Activity did not occur on this shift TRANSFERS: TOILET - SCORE: 0-UNK TRANSFERS: SHOWER: Activity did not occur on this shift TRANSFERS: SHOWER - SCORE: 0-UNK TRANSFERS: TUB: Activity did not occur on this shift TRANSFERS: TUB - SCORE: 0-UNK LOCOMOTION: WALK: LOCOMOTION: WALK - STEP 1: Does the patient need help to walk 150 feet? Yes. LOCOMOTION: WALK - STEP 2: How much assistance does the patient require to walk a minimum of 150 feet? Only incidental help such as contact guarding or steadying LOCOMOTION: WALK - SCORE: 4-MIN LOCOMOTION: WHEELCHAIR: Activity did not occur on this shift LOCOMOTION: WHEELCHAIR - SCORE: 0-UNK LOCOMOTION: STAIRS: Activity did not occur on this shift LOCOMOTION: STAIRS - SCORE: 0-UNK COMPREHENSION: COMPREHENSION - SCORE: 0-UNK EXPRESSION EXPRESSION - SCORE: 0-UNK SOCIAL INTERACTION: SOCIAL INTERACTION - SCORE: 0-UNK PROBLEM SOLVING: PROBLEM SOLVING - SCORE: 0-UNK MEMORY: MEMORY - SCORE: 0-UNK SIGNATURE PANEL: The following modified sections: Transfers: Bed, Chair, Wheelchair - Score, Transfers: Toilet - Score , Locomotion: Walk - Score, Locomotion: Wheelchair - Score, Locomotion: Stairs - Score were [electron ically] signed by Judie Pretty PTA on Sat Dec 20 2017 16:15:48 GMT-0500 ([place] Daylight Time)
--- NOTE | 2017-12-21 02:01 | FAST ---
SHIFT START DATE/TIME: 12/20/2017 19:00 (CDT) SHIFT END DATE/TIME: 12/21/2017 07:00 (CDT) NAME BRO GRIMM DATE OF : 1945 DATE OF ADMISSION: 12/15/2017 15:20 (CDT) PHONE: AGE: 72 N# [id number] GENDER: Female ENCOUNTER PHYSICIAN: Dr. Joshua Melendez M.D. ADMISSION DIAGNOSIS: - Orthopaedic Disorders 08 - Pelvic Fracture (08.3) Vertebral Fx. EATING: Activity did not occur on this shift EATING - SCORE: 0-UNK GROOMING: Wash, rinse, and dry hands GROOMING - STEP 1: Does the patient require assistance when grooming? Yes. GROOMING - STEP 2: Does the patient require the assistance of a helper? Yes. GROOMING - STEP 3: How much assistance does the patient require from the helper? Incidental touching assistance from the helper while grooming GROOMING - SCORE: 4-MIN BATHING: Activity did not occur on this shift BATHING - SCORE: 0-UNK DRESSING - UPPER BODY: Patient is not dressing in public clothing ARTICLES SCORE Total number of steps: 0 DRESSING - UPPER BODY - SCORE: 0-UNK DRESSING - LOWER BODY: Patient is not dressing in public clothing ARTICLES SCORE Total number of steps: 0 DRESSING - LOWER BODY - SCORE: 0-UNK TOILETING: TOILETING - STEP 1: Does the patient require assistance with toileting? Yes. TOILETING - STEP 2: Does the patient require the assistance of a helper? Yes. TOILETING - STEP 3: How much assistance does the patient require from the helper? Hands-on assistance from the helper TOILETING - STEP 4: Of the 3 tasks: 1) Adjusting clothing prior to use, 2) Cleansing of perineal area, 3) Adjusting clot vinicio after use; How many tasks does the patient perform WITHOUT assistance of the helper? Three tasks with steadying assistance from the helper TOILETING - SCORE: 4-MIN BLADDER MANAGEMENT: BLADDER MANAGEMENT - STEP 1: Does the patient control the bladder completely and intentionally without equipment or devices or med ications, and is always continent? No. BLADDER MANAGEMENT - STEP 2: Does the patient require the assistance of a helper? Yes. BLADDER MANAGEMENT - STEP 3: How much assistance does the patient require from the helper? Only set-up of equipment - such as plac ing it within reach of the patient or emptying a device - to maintain either satisfactory voiding pat tern or managing an external device, such as an absorbent pad, ileal device, or catheter BLADDER MANAGEMENT - SCORE: 5-SUP BOWEL MANAGEMENT: Activity did not occur on this shift BOWEL MANAGEMENT - SCORE: 7-IND TRANSFERS: BED, CHAIR, WHEELCHAIR: TRANSFERS: BED, CHAIR, WHEELCHAIR - STEP 1: Does the patient require assistance with bed, chair, or wheelchair transfers? Yes. TRANSFERS: BED, CHAIR, WHEELCHAIR - STEP 2: Does the patient require the assistance of a helper? Yes. TRANSFERS: BED, CHAIR, WHEELCHAIR - STEP 3: How much assistance does the patient require from the helper? Lifting of the legs TRANSFERS: BED, CHAIR, WHEELCHAIR - STEP 4: How many legs does the patient require the helper to lift? both legs TRANSFERS: BED, CHAIR, WHEELCHAIR - SCORE: 3-MOD TRANSFERS: TOILET: TRANSFERS: TOILET - STEP 1: Does the patient require assistance with toilet transfers? Yes. TRANSFERS: TOILET - STEP 2: Does the patient require the assistance of a helper? Yes. TRANSFERS: TOILET - STEP 3: How much assistance does the patient require from the helper? Patient performs half or more of the tr ansferring tasks TRANSFERS: TOILET - STEP 4: Does the patient need only incidental help such as contact guard or steadying during toilet transfer? Yes. TRANSFERS: TOILET - SCORE: 4-MIN TRANSFERS: SHOWER: Activity did not occur on this shift TRANSFERS: SHOWER - SCORE: 0-UNK TRANSFERS: TUB: Activity did not occur on this shift TRANSFERS: TUB - SCORE: 0-UNK LOCOMOTION: WALK: Activity did not occur on this shift LOCOMOTION: WALK - SCORE: 0-UNK LOCOMOTION: WHEELCHAIR: Activity did not occur on this shift LOCOMOTION: WHEELCHAIR - SCORE: 0-UNK COMPREHENSION: COMPREHENSION: TYPE: Both COMPREHENSION - STEP 1: Does the patient require help to understand complex and abstract ideas (such as current events, finan lesvia, discharge planning, medical issues, relationships, etc)? No. COMPREHENSION - STEP 2: Does the patient need extra time, require an assistive device (such as glasses for visual comprehensi on or a hearing aid for auditory comprehension) or does s/he have mild difficulty understanding compl ex and abstract information? Yes. COMPREHENSION - SCORE: 6-STACIE EXPRESSION EXPRESSION: TYPE: Both EXPRESSION - STEP 1: Does the patient require help expressing complex and abstract ideas (such as current events, finances , discharge planning, medical issues, relationships, etc)? No. EXPRESSION - STEP 2: Does the patient need extra time, require an assistive device (such as augmentive communication syste m or a communication board), OR does s/he have mild difficulty expressing complex and abstract ideas (including mild dysarthria or mild word-find problems)? Yes. EXPRESSION - SCORE: 6-STACIE SOCIAL INTERACTION: SOCIAL INTERACTION - STEP 1: Does the patient require a helper to interact with others in social and therapeutic situations? No. SOCIAL INTERACTION - STEP 2: Does the patient need extra time in social situations, OR does s/he interact with staff, other patien ts, and family members ONLY in structured environments, OR does s/he require medication for social in teraction? Yes, patient needs extra time SOCIAL INTERACTION - SCORE: 6-STACIE PROBLEM SOLVING: PROBLEM SOLVING - STEP 1: Does the patient need help to solve complex problems such as managing a checking account or confronti ng interpersonal problems? No. PROBLEM SOLVING - STEP 2: Does the patient require extra time to make decisions or solve problems, OR does s/he have slight dif ficulty reading, initiating, or self-correcting in unfamiliar situations? Yes, patient needs extra ti me. PROBLEM SOLVING - SCORE: 6-STACIE MEMORY: MEMORY - STEP 1: Does the patient need help to remember frequently encountered people, daily routines, and executing r equests? No. MEMORY - STEP 2: Does the patient have slight difficulty recognizing frequently encountered people, daily routines, or executing requests without the need for repetition or using self-initiated or environmental cues to remember? No. MEMORY - SCORE: 7-IND SIGNATURE PANEL: The following modified sections: Eating - Score, Grooming - Score, Bathing - Score, Dressing - Upper Body - Score, Dressing - Lower Body - Score, Toileting - Score, Bladder Management - Score, Bowel Man agement - Score, Transfers: Bed, Chair, Wheelchair - Score, Transfers: Toilet - Score, Transfers: Laurel wer - Score, Transfers: Tub - Score, Locomotion: Walk - Score, Locomotion: Wheelchair - Score, Compre hension - Score, Expression - Score, Social Interaction - Score, Problem Solving - Score, Memory - Sc ore were [electronically] signed by Kristina Moran RN on FriDec 21 2017 02:00:04 T-0500 ([facility] Time)
[2017-12-21] MEDS: HYDROCODONE/APAP 10/325 TAB PO PRN ×5 (03:22→19:53)
[2017-12-21] MEDS: ATENOLOL 50 MG TAB PO SCH (05:11)
[2017-12-21] MEDS: DOCUSATE NA 100 MG CAP PO SCH ×2 (07:46→19:53)
[2017-12-21] MEDS: POTASSIUM CL SA 10 MEQ TAB PO SCH (07:46)
[2017-12-21] MEDS: FE SULF/FA/VIT B COMP & C TAB PO SCH (07:46)
[2017-12-21] MEDS: ASPIRIN 81 MG CHEWABLE TABLET PO SCH (07:46)
[2017-12-21] MEDS: LIDOCAINE 5% PATCH TOP SCH (07:46)
[2017-12-21] MEDS: FERROUS SULFATE 325 MG TAB PO SCH (07:46)
[2017-12-21] MEDS: CRANBERRY FRUIT EXTRACT 200 MG CAP PO SCH ×2 (07:47→19:52)
[2017-12-21] MEDS: APIXABAN 2.5 MG TABLET PO SCH ×2 (07:47→19:52)
[2017-12-21] MEDS: DULOXETINE 20 MG CAP PO SCH (07:47)
[2017-12-21] MEDS: LISINOPRIL 5 MG TAB PO SCH (07:47)
[2017-12-21] MEDS: PANTOPRAZOLE 40MG TABLET PO SCH (07:47)
[2017-12-21] MEDS: PROMOD 30 ML DOSE PO SCH ×2 (07:48→19:52)
[2017-12-21] MEDS: MAGNESIUM OXIDE 400 MG TAB PO SCH ×2 (07:48→19:53)
[2017-12-21] MEDS: ENSURE ENLIVE 237 ML CAN PO SCH ×2 (07:48→19:52)
--- NOTE | 2017-12-21 10:01 | FAST ---
SHIFT START DATE/TIME: 12/21/2017 07:00 (CDT) SHIFT END DATE/TIME: 12/21/2017 19:00 (CDT) NAME BRO GRIMM DATE OF : 1945 DATE OF ADMISSION: 12/15/2017 15:20 (CDT) PHONE: AGE: 72 N# [id number] GENDER: Female ENCOUNTER PHYSICIAN: Dr. Joshua Melendez M.D. ADMISSION DIAGNOSIS: - Orthopaedic Disorders 08 - Pelvic Fracture (08.3) Vertebral Fx. EATING: EATING - STEP 1: Does the patient require assistance when eating? Yes. EATING - STEP 2: Does the patient require the assistance of a helper? Yes. EATING - STEP 3: Does the patient perform half or more of the eating tasks? Yes. EATING - STEP 4: Does the patient need only supervision, cuing, coaxing OR help to apply an orthosis OR help to cut fo od, open containers, pour liquids, or butter bread? Yes. EATING - SCORE: 5-SUP GROOMING: Comb/brush hair Oral care Wash, rinse, and dry hands GROOMING - STEP 1: Does the patient require assistance when grooming? Yes. GROOMING - STEP 2: Does the patient require the assistance of a helper? Yes. GROOMING - STEP 3: How much assistance does the patient require from the helper? Cuing, coaxing, instructions, or encour agement for completion of grooming GROOMING - SCORE: 5-SUP BATHING: Activity did not occur on this shift BATHING - SCORE: 0-UNK DRESSING - UPPER BODY: Sweater (four steps) T-shirt/pullover shirt (four steps) ARTICLES SCORE Total number of steps: 8 DRESSING - UPPER BODY - STEP 1: Does the patient require help when dressing above the waist? Yes. DRESSING - UPPER BODY - STEP 2: Does the patient require the assistance of a helper? Yes. DRESSING - UPPER BODY - STEP 3: Does the helper touch the patient while dressing? No. DRESSING - UPPER BODY - SCORE: 5-SUP DRESSING - LOWER BODY: ARTICLES SCORE Total number of steps: 3 DRESSING - LOWER BODY - STEP 1: Does the patient require help when dressing below the waist? Yes. DRESSING - LOWER BODY - STEP 2: Does the patient require the assistance of a helper? Yes. DRESSING - LOWER BODY - STEP 3: Does the helper touch the patient while dressing? No. DRESSING - LOWER BODY - SCORE: 5-SUP TOILETING: TOILETING - STEP 1: Does the patient require assistance with toileting? Yes. TOILETING - STEP 2: Does the patient require the assistance of a helper? Yes. TOILETING - STEP 3: How much assistance does the patient require from the helper? Hands-on assistance from the helper TOILETING - STEP 4: Of the 3 tasks: 1) Adjusting clothing prior to use, 2) Cleansing of perineal area, 3) Adjusting clot vinicio after use; How many tasks does the patient perform WITHOUT assistance of the helper? Three tasks with steadying assistance from the helper TOILETING - SCORE: 4-MIN BLADDER MANAGEMENT: BLADDER MANAGEMENT - STEP 1: Does the patient control the bladder completely and intentionally without equipment or devices or med ications, and is always continent? Yes. BLADDER MANAGEMENT - SCORE: 7-IND BOWEL MANAGEMENT: BOWEL MANAGEMENT - STEP 1: Does the patient control bowels completely and intentionally without equipment devices or medications AND is always continent? No. BOWEL MANAGEMENT - STEP 2: Does the patient require the assistance of a helper? No, patient requires and manages independently a n assistive device such as a bedpan, bedside commode, absorbent pad, incontinent device, or collectin g device BOWEL MANAGEMENT - SCORE: 6-STACIE TRANSFERS: BED, CHAIR, WHEELCHAIR: TRANSFERS: BED, CHAIR, WHEELCHAIR - STEP 1: Does the patient require assistance with bed, chair, or wheelchair transfers? Yes. TRANSFERS: BED, CHAIR, WHEELCHAIR - STEP 2: Does the patient require the assistance of a helper? Yes. TRANSFERS: BED, CHAIR, WHEELCHAIR - STEP 3: How much assistance does the patient require from the helper? Steadying/guiding assistance TRANSFERS: BED, CHAIR, WHEELCHAIR - SCORE: 4-MIN TRANSFERS: TOILET: TRANSFERS: TOILET - STEP 1: Does the patient require assistance with toilet transfers? Yes. TRANSFERS: TOILET - STEP 2: Does the patient require the assistance of a helper? Yes. TRANSFERS: TOILET - STEP 3: How much assistance does the patient require from the helper? Patient performs half or more of the tr ansferring tasks TRANSFERS: TOILET - STEP 4: Does the patient need only incidental help such as contact guard or steadying during toilet transfer? Yes. TRANSFERS: TOILET - SCORE: 4-MIN TRANSFERS: SHOWER: Activity did not occur on this shift TRANSFERS: SHOWER - SCORE: 0-UNK TRANSFERS: TUB: Activity did not occur on this shift TRANSFERS: TUB - SCORE: 0-UNK LOCOMOTION: WALK: Activity did not occur on this shift LOCOMOTION: WALK - SCORE: 0-UNK LOCOMOTION: WHEELCHAIR: Activity did not occur on this shift LOCOMOTION: WHEELCHAIR - SCORE: 0-UNK COMPREHENSION: COMPREHENSION: TYPE: Both COMPREHENSION - STEP 1: Does the patient require help to understand complex and abstract ideas (such as current events, finan lesvia, discharge planning, medical issues, relationships, etc)? No. COMPREHENSION - STEP 2: Does the patient need extra time, require an assistive device (such as glasses for visual comprehensi on or a hearing aid for auditory comprehension) or does s/he have mild difficulty understanding compl ex and abstract information? Yes. COMPREHENSION - SCORE: 6-STACIE EXPRESSION EXPRESSION: TYPE: Both EXPRESSION - STEP 1: Does the patient require help expressing complex and abstract ideas (such as current events, finances , discharge planning, medical issues, relationships, etc)? No. EXPRESSION - STEP 2: Does the patient need extra time, require an assistive device (such as augmentive communication syste m or a communication board), OR does s/he have mild difficulty expressing complex and abstract ideas (including mild dysarthria or mild word-find problems)? Yes. EXPRESSION - SCORE: 6-STACIE SOCIAL INTERACTION: SOCIAL INTERACTION - STEP 1: Does the patient require a helper to interact with others in social and therapeutic situations? No. SOCIAL INTERACTION - STEP 2: Does the patient need extra time in social situations, OR does s/he interact with staff, other patien ts, and family members ONLY in structured environments, OR does s/he require medication for social in teraction? Yes, patient needs extra time SOCIAL INTERACTION - SCORE: 6-STACIE PROBLEM SOLVING: PROBLEM SOLVING - STEP 1: Does the patient need help to solve complex problems such as managing a checking account or confronti ng interpersonal problems? No. PROBLEM SOLVING - STEP 2: Does the patient require extra time to make decisions or solve problems, OR does s/he have slight dif ficulty reading, initiating, or self-correcting in unfamiliar situations? Yes, patient needs extra ti me. PROBLEM SOLVING - SCORE: 6-STACIE MEMORY: MEMORY - STEP 1: Does the patient need help to remember frequently encountered people, daily routines, and executing r equests? No. MEMORY - STEP 2: Does the patient have slight difficulty recognizing frequently encountered people, daily routines, or executing requests without the need for repetition or using self-initiated or environmental cues to remember? Yes. MEMORY - SCORE: 6-STACIE SIGNATURE PANEL: The following modified sections: Eating - Score, Grooming - Score, Bathing - Score, Dressing - Upper Body - Score, Dressing - Lower Body - Score, Toileting - Score, Bladder Management - Score, Bowel Man agement - Score, Transfers: Bed, Chair, Wheelchair - Score, Transfers: Toilet - Score, Transfers: Laurel wer - Score, Transfers: Tub - Score, Locomotion: Walk - Score, Locomotion: Wheelchair - Score, Compre hension - Score, Expression - Score, Social Interaction - Score, Problem Solving - Score, Memory - Sc ore were [electronically] signed by Shubham Camarillo on FriDec 21 2017 10:01:10 T-0500 ([facility] Daylight Time)
[2017-12-21] MEDS: TRAMADOL HCL 50 MG TAB PO PRN ×2 (10:40→14:23)
[2017-12-21] MEDS: ONDANSETRON 4 MG (ODT) TAB PO PRN (15:50)
[2017-12-21] MEDS ORDERED: MAGNES/ALUMIN/SIMET 30ML UCUP PO PRN (16:08)
--- NOTE | 2017-12-21 17:37 | CON ---
Date of Consultation: 12/17/2017 Reason For Consultation: Heme-positive stool and anemia, hemoglobin 9.1. History Of Present Illness: This patient is a 72-year-old white female with multiple medical problem s, admitted to rehab unit, found to have heme-positive stool. Hemoglobin is low at 9.1. Iron satura tion is low at 4.3%, ferritin is normal at 65, and MCV is normal at 84. The patient reports colonosc opy approximately in 2010 and EGD in 2010. By her recollection, they have both unremarkable by Dr. Leo Jim in [place], [place]. Of note, the patient has suffered a pelvis and L3-4 fractures leadi ng to her admission to rehab. She has shortness of breath at rest after one of the wheelchair around the floor and sitting for approximately 5-10 minutes, still shortness of breath with O2 saturation 9 6%. She reports some increased reflux disease over the past 3 weeks. The patient denies any melena, hematochezia, hematemesis, coffee-grounds emesis, hematuria, dysuria, polydipsia, or chest pain. Shayy gentile does have shortness of breath. No seizure or syncope. No change in bowel habits. Past Medical History: Significant for hypertension, 3 right knee surgeries, right total knee replace ment, right rotator cuff surgery as well. Medications: At home include Eliquis, atenolol, and oxycodone. Allergies: TO STADOL AND NEURONTIN. Social History: She is . Quit tobacco in 2004 and alcohol in 2004. Family History: Father of esophageal cancer and also had history of hypertension. Mother of coronary artery disease with 3 MIs and had a hypertension. Both her paternal grandparents of strokes. Review of Systems: The patient has shortness of breath after going around the munoz for extended amount of time, 5-10 min utes of rest, after one round on the floor on wheelchair. She has anemia, heme-positive stool. She denies melena, hematochezia, hematemesis, coffee-ground emesis, hematuria, dysuria, polyuria, polydip manuel, or hemoptysis. No chest pain. No seizure, syncope. No lower extremity edema, muscle aches, esvin int aches, backaches, depression, or anxiety. Physical Examination: VITAL SIGNS: The patient is 120 pounds and is 5 foot 4 inches. BMI of 22.0 kg/m2. She has a temper ature of 97.6 degrees Fahrenheit, pulse 70, respirations 16, blood pressure 139/69, and O2 saturation 96%-97%. HEENT: Normocephalic, atraumatic. Anicteric. Equal, round, and reactive to light. EOMs intact. O ropharynx clear. NECK: Supple. RESPIRATIONS: Labored breathing, but clear to auscultation. CARDIAC: Regular rate and rhythm. No gallops or rubs. ABDOMEN: Positive bowel sounds. Soft, nontender, and nondistended. No hepatosplenomegaly. EXTREMITIES: No clubbing, cyanosis, or edema. 2+ pulses. NEUROLOGIC: Alert and oriented x3. Grossly nonfocal. 5/5 motor strength. Sensation intact to ligh t touch. Laboratory Data: The patient has a white count of 6.6; hemoglobin of 11.1, up from 9.1 yesterday; he matocrit 32.8; MCV of 84; platelet count of 256; polys 64%; lymphocytes 22%; monocytes 10%; eosinophi ls 3%; and basophils 1%. PT of 16.0, INR of 1.4, and PTT of 27.9. The patient has yesterday of sodi um 138, potassium 3.6, chloride 105, bicarb 25, BUN of 7, creatinine of 0.5, glucose 82, calcium 9.0, magnesium 1.9. Iron saturation low at 4.3%, ferritin normal at 65.4, total bilirubin 0.7, AST of 13 , ALT of 15, alkaline phosphatase at 25, total protein 5.4, albumin 2.0, globulin 3.4, pre-albumin 9. 7, pH was 6. Urine was negative. Impression: 1.Heme-positive stool. Hemoglobin 9.1 at lowest, natural 11.1, iron saturation low at 4.3%, ferriti n normal at 55, MCV normal at 84. The patient reports colonoscopy and EGD back in 2010 were negative by she and her regulation today, by Dr. Poli Jim in [place], [place]. The patient has s uffered pelvis and L4-L4 fractures last week. She is short of breath at rest after going around the floor on a wheelchair. The nurses said her lower extremity ultrasound Dopplers were negative. Her O 2 saturation is 96% on room air, still somewhat labored breathing at rest. 2.Increased gastroesophageal reflux disease over the last 3 weeks. 3.History of hypertension, total right knee replacement, and right rotator cuff surgery. Recommendation: 1.Continue serial H and H, and transfuse p.r.n. 2.PPI therapy. 3.Check a Helicobacter pylori antigen test or HP breath test, and treat if positive. 4.Outpatient EGD, and colonoscopy after surgery or Ortho clearance with increased risk of procedures due to recent pelvis and lower back fractures. 5.Shortness of breath at rest. Workup now. Consider Cardiology, and pulmonology consult. We will check chest x-ray at this time. Consider CT chest. CARLOS/JAGRUTI Voice ID: [id number] Report ID: [id number]
[2017-12-21] MEDS: MELATONIN 3 MG TABLET PO PRN (19:52)
[2017-12-22] MEDS: HYDROCODONE/APAP 10/325 TAB PO PRN ×4 (00:16→17:18)
--- NOTE | 2017-12-22 03:35 | FAST ---
SHIFT START DATE/TIME: 12/21/2017 19:00 (CDT) SHIFT END DATE/TIME: 12/22/2017 07:00 (CDT) NAME BRO GRIMM DATE OF : 1945 DATE OF ADMISSION: 12/15/2017 15:20 (CDT) PHONE: AGE: 72 SSN# [id number] GENDER: Female ENCOUNTER PHYSICIAN: Dr. Joshua Melendez M.D. ADMISSION DIAGNOSIS: - Orthopaedic Disorders 08 - Pelvic Fracture (08.3) Vertebral Fx. EATING: Activity did not occur on this shift EATING - SCORE: 0-UNK GROOMING: Wash, rinse, and dry hands GROOMING - STEP 1: Does the patient require assistance when grooming? Yes. GROOMING - STEP 2: Does the patient require the assistance of a helper? Yes. GROOMING - STEP 3: How much assistance does the patient require from the helper? Only prior equipment preparation/set up from the helper GROOMING - SCORE: 5-SUP BATHING: Activity did not occur on this shift BATHING - SCORE: 0-UNK DRESSING - UPPER BODY: Patient is not dressing in public clothing ARTICLES SCORE Total number of steps: 0 DRESSING - UPPER BODY - SCORE: 0-UNK DRESSING - LOWER BODY: Patient is not dressing in public clothing ARTICLES SCORE Total number of steps: 0 DRESSING - LOWER BODY - SCORE: 0-UNK TOILETING: TOILETING - STEP 1: Does the patient require assistance with toileting? Yes. TOILETING - STEP 2: Does the patient require the assistance of a helper? Yes. TOILETING - STEP 3: How much assistance does the patient require from the helper? Only supervision TOILETING - SCORE: 5-SUP BLADDER MANAGEMENT: BLADDER MANAGEMENT - STEP 1: Does the patient control the bladder completely and intentionally without equipment or devices or med ications, and is always continent? No. BLADDER MANAGEMENT - STEP 2: Does the patient require the assistance of a helper? Yes. BLADDER MANAGEMENT - STEP 3: How much assistance does the patient require from the helper? Only supervision, stand-by, cuing, or c oaxing BLADDER MANAGEMENT - SCORE: 5-SUP BOWEL MANAGEMENT: Activity did not occur on this shift BOWEL MANAGEMENT - SCORE: 7-IND TRANSFERS: BED, CHAIR, WHEELCHAIR: TRANSFERS: BED, CHAIR, WHEELCHAIR - STEP 1: Does the patient require assistance with bed, chair, or wheelchair transfers? Yes. TRANSFERS: BED, CHAIR, WHEELCHAIR - STEP 2: Does the patient require the assistance of a helper? Yes. TRANSFERS: BED, CHAIR, WHEELCHAIR - STEP 3: How much assistance does the patient require from the helper? Lifting of the legs TRANSFERS: BED, CHAIR, WHEELCHAIR - STEP 4: How many legs does the patient require the helper to lift? one leg TRANSFERS: BED, CHAIR, WHEELCHAIR - SCORE: 4-MIN TRANSFERS: TOILET: TRANSFERS: TOILET - STEP 1: Does the patient require assistance with toilet transfers? Yes. TRANSFERS: TOILET - STEP 2: Does the patient require the assistance of a helper? Yes. TRANSFERS: TOILET - STEP 3: How much assistance does the patient require from the helper? Only supervision, cuing, coaxing, OR he lp to set out transfer equipment or to lock brakes and/or lift foot rests TRANSFERS: TOILET - SCORE: 5-SUP TRANSFERS: SHOWER: Activity did not occur on this shift TRANSFERS: SHOWER - SCORE: 0-UNK TRANSFERS: TUB: Activity did not occur on this shift TRANSFERS: TUB - SCORE: 0-UNK LOCOMOTION: WALK: Activity did not occur on this shift LOCOMOTION: WALK - SCORE: 0-UNK LOCOMOTION: WHEELCHAIR: Activity did not occur on this shift LOCOMOTION: WHEELCHAIR - SCORE: 0-UNK COMPREHENSION: COMPREHENSION: TYPE: Both COMPREHENSION - STEP 1: Does the patient require help to understand complex and abstract ideas (such as current events, finan lesvia, discharge planning, medical issues, relationships, etc)? No. COMPREHENSION - STEP 2: Does the patient need extra time, require an assistive device (such as glasses for visual comprehensi on or a hearing aid for auditory comprehension) or does s/he have mild difficulty understanding compl ex and abstract information? Yes. COMPREHENSION - SCORE: 6-STACIE EXPRESSION EXPRESSION: TYPE: Both EXPRESSION - STEP 1: Does the patient require help expressing complex and abstract ideas (such as current events, finances , discharge planning, medical issues, relationships, etc)? No. EXPRESSION - STEP 2: Does the patient need extra time, require an assistive device (such as augmentive communication syste m or a communication board), OR does s/he have mild difficulty expressing complex and abstract ideas (including mild dysarthria or mild word-find problems)? Yes. EXPRESSION - SCORE: 6-STACIE SOCIAL INTERACTION: SOCIAL INTERACTION - STEP 1: Does the patient require a helper to interact with others in social and therapeutic situations? No. SOCIAL INTERACTION - STEP 2: Does the patient need extra time in social situations, OR does s/he interact with staff, other patien ts, and family members ONLY in structured environments, OR does s/he require medication for social in teraction? Yes, patient needs extra time SOCIAL INTERACTION - SCORE: 6-STACIE PROBLEM SOLVING: PROBLEM SOLVING - STEP 1: Does the patient need help to solve complex problems such as managing a checking account or confronti ng interpersonal problems? No. PROBLEM SOLVING - STEP 2: Does the patient require extra time to make decisions or solve problems, OR does s/he have slight dif ficulty reading, initiating, or self-correcting in unfamiliar situations? Yes, patient needs extra ti me. PROBLEM SOLVING - SCORE: 6-STACIE MEMORY: MEMORY - STEP 1: Does the patient need help to remember frequently encountered people, daily routines, and executing r equests? No. MEMORY - STEP 2: Does the patient have slight difficulty recognizing frequently encountered people, daily routines, or executing requests without the need for repetition or using self-initiated or environmental cues to remember? Yes. MEMORY - SCORE: 6-STACIE SIGNATURE PANEL: The following modified sections: Eating - Score, Grooming - Score, Bathing - Score, Dressing - Upper Body - Score, Dressing - Lower Body - Score, Toileting - Score, Bladder Management - Score, Bowel Man agement - Score, Transfers: Bed, Chair, Wheelchair - Score, Transfers: Toilet - Score, Transfers: Laurel wer - Score, Transfers: Tub - Score, Locomotion: Walk - Score, Locomotion: Wheelchair - Score, Compre hension - Score, Expression - Score, Social Interaction - Score, Problem Solving - Score, Memory - Sc ore were [electronically] signed by Constanza Vides on FriDec 22 2017 03:33:39 GMT-0500 (Central Day light Time)
[2017-12-22] MEDS: ATENOLOL 50 MG TAB PO SCH (05:00)
[2017-12-22] MEDS: CRANBERRY FRUIT EXTRACT 200 MG CAP PO SCH ×2 (08:14→21:00)
[2017-12-22] MEDS: DULOXETINE 20 MG CAP PO SCH (08:14)
[2017-12-22] MEDS: PANTOPRAZOLE 40MG TABLET PO SCH (08:14)
[2017-12-22] MEDS: APIXABAN 2.5 MG TABLET PO SCH ×2 (08:15→21:00)
[2017-12-22] MEDS: FE SULF/FA/VIT B COMP & C TAB PO SCH (08:15)
[2017-12-22] MEDS: POTASSIUM CL SA 10 MEQ TAB PO SCH (08:15)
[2017-12-22] MEDS: FERROUS SULFATE 325 MG TAB PO SCH (08:15)
[2017-12-22] MEDS: MAGNESIUM OXIDE 400 MG TAB PO SCH ×2 (08:15→21:00)
[2017-12-22] MEDS: ASPIRIN 81 MG CHEWABLE TABLET PO SCH (08:16)
[2017-12-22] MEDS: LISINOPRIL 5 MG TAB PO SCH (08:16)
[2017-12-22] MEDS: DOCUSATE NA 100 MG CAP PO SCH ×2 (08:16→20:00)
[2017-12-22] MEDS: TRAMADOL HCL 50 MG TAB PO PRN ×3 (08:16→20:59)
[2017-12-22] MEDS: PROMOD 30 ML DOSE PO SCH ×2 (08:17→20:00)
[2017-12-22] MEDS: LIDOCAINE 5% PATCH TOP SCH (08:18)
--- NOTE | 2017-12-22 09:37 | FAST ---
SHIFT START DATE/TIME: 12/22/2017 07:00 (CDT) SHIFT END DATE/TIME: 12/22/2017 19:00 (CDT) NAME BRO GRIMM DATE OF : 1945 DATE OF ADMISSION: 12/15/2017 15:20 (CDT) PHONE: AGE: 72 SSN# [id number] GENDER: Female ENCOUNTER PHYSICIAN: Dr. Joshua Melendez M.D. ADMISSION DIAGNOSIS: - Orthopaedic Disorders 08 - Pelvic Fracture (08.3) Vertebral Fx. EATING: EATING - STEP 1: Does the patient require assistance when eating? Yes. EATING - STEP 2: Does the patient require the assistance of a helper? Yes. EATING - STEP 3: Does the patient perform half or more of the eating tasks? Yes. EATING - STEP 4: Does the patient need only supervision, cuing, coaxing OR help to apply an orthosis OR help to cut fo od, open containers, pour liquids, or butter bread? Yes. EATING - SCORE: 5-SUP GROOMING: Comb/brush hair Oral care Wash, rinse, and dry face Wash, rinse, and dry hands GROOMING - STEP 1: Does the patient require assistance when grooming? Yes. GROOMING - STEP 2: Does the patient require the assistance of a helper? No. The patient only requires an assistive devic e, OR takes more than reasonable time to groom, OR there is a concern for safety as the patient groom s GROOMING - SCORE: 6-STACIE BATHING: Activity did not occur on this shift BATHING - SCORE: 0-UNK DRESSING - UPPER BODY: Activity did not occur on this shift ARTICLES SCORE Total number of steps: 0 DRESSING - UPPER BODY - SCORE: 0-UNK DRESSING - LOWER BODY: Activity did not occur on this shift ARTICLES SCORE Total number of steps: 0 DRESSING - LOWER BODY - SCORE: 0-UNK TOILETING: TOILETING - STEP 1: Does the patient require assistance with toileting? Yes. TOILETING - STEP 2: Does the patient require the assistance of a helper? Yes. TOILETING - STEP 3: How much assistance does the patient require from the helper? Hands-on assistance from the helper TOILETING - STEP 4: Of the 3 tasks: 1) Adjusting clothing prior to use, 2) Cleansing of perineal area, 3) Adjusting clot vinicio after use; How many tasks does the patient perform WITHOUT assistance of the helper? Three tasks with steadying assistance from the helper TOILETING - SCORE: 4-MIN BLADDER MANAGEMENT: BLADDER MANAGEMENT - STEP 1: Does the patient control the bladder completely and intentionally without equipment or devices or med ications, and is always continent? Yes. BLADDER MANAGEMENT - SCORE: 7-IND BOWEL MANAGEMENT: Activity did not occur on this shift BOWEL MANAGEMENT - SCORE: 7-IND TRANSFERS: BED, CHAIR, WHEELCHAIR: TRANSFERS: BED, CHAIR, WHEELCHAIR - STEP 1: Does the patient require assistance with bed, chair, or wheelchair transfers? Yes. TRANSFERS: BED, CHAIR, WHEELCHAIR - STEP 2: Does the patient require the assistance of a helper? Yes. TRANSFERS: BED, CHAIR, WHEELCHAIR - STEP 3: How much assistance does the patient require from the helper? Lifting of the legs TRANSFERS: BED, CHAIR, WHEELCHAIR - STEP 4: How many legs does the patient require the helper to lift? both legs TRANSFERS: BED, CHAIR, WHEELCHAIR - SCORE: 3-MOD TRANSFERS: TOILET: TRANSFERS: TOILET - STEP 1: Does the patient require assistance with toilet transfers? Yes. TRANSFERS: TOILET - STEP 2: Does the patient require the assistance of a helper? Yes. TRANSFERS: TOILET - STEP 3: How much assistance does the patient require from the helper? Patient performs half or more of the tr ansferring tasks TRANSFERS: TOILET - STEP 4: Does the patient need only incidental help such as contact guard or steadying during toilet transfer? No. Patient needs more than incidental help TRANSFERS: TOILET - SCORE: 3-MOD TRANSFERS: SHOWER: Activity did not occur on this shift TRANSFERS: SHOWER - SCORE: 0-UNK TRANSFERS: TUB: Activity did not occur on this shift TRANSFERS: TUB - SCORE: 0-UNK LOCOMOTION: WALK: Activity did not occur on this shift LOCOMOTION: WALK - SCORE: 0-UNK LOCOMOTION: WHEELCHAIR: Activity did not occur on this shift LOCOMOTION: WHEELCHAIR - SCORE: 0-UNK COMPREHENSION: COMPREHENSION: TYPE: Both COMPREHENSION - STEP 1: Does the patient require help to understand complex and abstract ideas (such as current events, finan lesvia, discharge planning, medical issues, relationships, etc)? No. COMPREHENSION - STEP 2: Does the patient need extra time, require an assistive device (such as glasses for visual comprehensi on or a hearing aid for auditory comprehension) or does s/he have mild difficulty understanding compl ex and abstract information? Yes. COMPREHENSION - SCORE: 6-STACIE EXPRESSION EXPRESSION: TYPE: Both EXPRESSION - STEP 1: Does the patient require help expressing complex and abstract ideas (such as current events, finances , discharge planning, medical issues, relationships, etc)? No. EXPRESSION - STEP 2: Does the patient need extra time, require an assistive device (such as augmentive communication syste m or a communication board), OR does s/he have mild difficulty expressing complex and abstract ideas (including mild dysarthria or mild word-find problems)? Yes. EXPRESSION - SCORE: 6-STACIE SOCIAL INTERACTION: SOCIAL INTERACTION - STEP 1: Does the patient require a helper to interact with others in social and therapeutic situations? No. SOCIAL INTERACTION - STEP 2: Does the patient need extra time in social situations, OR does s/he interact with staff, other patien ts, and family members ONLY in structured environments, OR does s/he require medication for social in teraction? Yes, patient needs extra time SOCIAL INTERACTION - SCORE: 6-STACIE PROBLEM SOLVING: PROBLEM SOLVING - STEP 1: Does the patient need help to solve complex problems such as managing a checking account or confronti ng interpersonal problems? No. PROBLEM SOLVING - STEP 2: Does the patient require extra time to make decisions or solve problems, OR does s/he have slight dif ficulty reading, initiating, or self-correcting in unfamiliar situations? Yes, patient needs extra ti me. PROBLEM SOLVING - SCORE: 6-STACIE MEMORY: MEMORY - STEP 1: Does the patient need help to remember frequently encountered people, daily routines, and executing r equests? No. MEMORY - STEP 2: Does the patient have slight difficulty recognizing frequently encountered people, daily routines, or executing requests without the need for repetition or using self-initiated or environmental cues to remember? Yes. MEMORY - SCORE: 6-STACIE SIGNATURE PANEL: The following modified sections: Eating - Score, Grooming - Score, Bathing - Score, Dressing - Upper Body - Score, Dressing - Lower Body - Score, Toileting - Score, Bladder Management - Score, Bowel Man agement - Score, Transfers: Bed, Chair, Wheelchair - Score, Transfers: Toilet - Score, Transfers: Laurel wer - Score, Transfers: Tub - Score, Locomotion: Walk - Score, Locomotion: Wheelchair - Score, Compre hension - Score, Expression - Score, Social Interaction - Score, Problem Solving - Score, Memory - Sc ore were [electronically] signed by Shubham Camarillo on FriDec 22 2017 09:36:34 GMT-0500 (Central Daylight Time)
[2017-12-22] MEDS: ENSURE ENLIVE 237 ML CAN PO SCH ×2 (10:15→21:00)
--- NOTE | 2017-12-22 16:10 | FAST ---
ENCOUNTER DATE AND TIME: 12/22/2017 08:00 (CDT) NAME BRO GRIMM DATE OF : 1945 DATE OF ADMISSION: 12/15/2017 15:20 (CDT) PHONE: AGE: 72 SSN# [id number] GENDER: Female ENCOUNTER PHYSICIAN: Dr. Joshua Melendez M.D. ADMISSION DIAGNOSIS: - Orthopaedic Disorders 08 - Pelvic Fracture (08.3) Vertebral Fx. EATING: Activity did not occur on this shift EATING - SCORE: 0-UNK GROOMING: Activity did not occur on this shift GROOMING - SCORE: 0-UNK BATHING: Activity did not occur on this shift BATHING - SCORE: 0-UNK DRESSING - UPPER BODY: Activity did not occur on this shift Patient is not dressing in public clothing ARTICLES SCORE Total number of steps: 0 DRESSING - UPPER BODY - SCORE: 0-UNK DRESSING - LOWER BODY: Activity did not occur on this shift Patient is not dressing in public clothing ARTICLES SCORE Total number of steps: 0 DRESSING - LOWER BODY - SCORE: 0-UNK TOILETING: Activity did not occur on this shift TOILETING - SCORE: 0-UNK BLADDER MANAGEMENT: Activity did not occur on this shift BLADDER MANAGEMENT - SCORE: 7-IND BOWEL MANAGEMENT: Activity did not occur on this shift BOWEL MANAGEMENT - SCORE: 7-IND TRANSFERS: BED, CHAIR, WHEELCHAIR: TRANSFERS: BED, CHAIR, WHEELCHAIR - STEP 1: Does the patient require assistance with bed, chair, or wheelchair transfers? Yes. TRANSFERS: BED, CHAIR, WHEELCHAIR - STEP 2: Does the patient require the assistance of a helper? Yes. TRANSFERS: BED, CHAIR, WHEELCHAIR - STEP 3: How much assistance does the patient require from the helper? Steadying/guiding assistance TRANSFERS: BED, CHAIR, WHEELCHAIR - SCORE: 4-MIN TRANSFERS: TOILET: Activity did not occur on this shift TRANSFERS: TOILET - SCORE: 0-UNK TRANSFERS: SHOWER: Activity did not occur on this shift TRANSFERS: SHOWER - SCORE: 0-UNK TRANSFERS: TUB: Activity did not occur on this shift TRANSFERS: TUB - SCORE: 0-UNK LOCOMOTION: WALK: LOCOMOTION: WALK - STEP 1: Does the patient need help to walk 150 feet? Yes. LOCOMOTION: WALK - STEP 2: How much assistance does the patient require to walk a minimum of 150 feet? Only incidental help such as contact guarding or steadying LOCOMOTION: WALK - SCORE: 4-MIN LOCOMOTION: WHEELCHAIR: LOCOMOTION: WHEELCHAIR - STEP 1: Does the patient need help to go 150 feet in a wheelchair? Yes. LOCOMOTION: WHEELCHAIR - STEP 2: How much assistance does the patient need from the helper? Only supervision, cuing, or coaxing LOCOMOTION: WHEELCHAIR - SCORE: 5-SUP LOCOMOTION: STAIRS: Activity did not occur on this shift LOCOMOTION: STAIRS - SCORE: 0-UNK COMPREHENSION: COMPREHENSION - SCORE: 0-UNK EXPRESSION EXPRESSION - SCORE: 0-UNK SOCIAL INTERACTION: SOCIAL INTERACTION - SCORE: 0-UNK PROBLEM SOLVING: PROBLEM SOLVING - SCORE: 0-UNK MEMORY: MEMORY - SCORE: 0-UNK SIGNATURE PANEL: The following modified sections: Transfers: Bed, Chair, Wheelchair - Score, Transfers: Toilet - Score , Locomotion: Walk - Score, Locomotion: Wheelchair - Score, Locomotion: Stairs - Score were [electron gerri] signed by Judie Pretty PTA on FriDec 22 2017 16:09:18 T-0500 (Central Daylight Time)
--- NOTE | 2017-12-22 18:10 | R.PN ---
ENCOUNTER DATE AND TIME: 12/22/2017 18:07 (CDT) NAME BRO GRIMM DATE OF : 1945 DATE OF ADMISSION: 12/15/2017 15:20 (CDT) Vertebral FxCHIEF COMPLAINT: Pubic and vertebral fracture SUBJECTIVE: Pt denied any Shortness of Breath. Pt denied any depression. Ambulated 235' with contact guard assistance with a rolling walker. Mobilized 100' using a wheelchair . VITAL SIGNS Temperature: 97.7 F SBP/DBP: 127/61 Pulse: 72 Resp: 16 MEDICATION ALLERGIES: No Known Drug Allergies (NKDA) ENVIRONMENTAL ALLERGIES: - Substance Allergies None Known - Other Allergies None Known NURSING: - Shower allowing shower - Skin care per protocol ACTIVITIES OOB only with supervision THERAPIES: - Occupational Therapy Evaluate and Treat. - Physical Therapy Evaluate and Treat. PHYSICAL EXAM - Gen Alert and awake Lying in bed No apparent distress Oriented to: person, time, and place - Skin No skin breakdown. No abnormalities - Eyes No abnormalities - ENMT No abnormalities - Neck No abnormalities - CVS RRR - Chest Clear - Abd Soft - GI Non distended Deferred - No abnormalities - Ext No significant edema - MSK 4+/5 weakness in both lower extremities. - Neuro 4/5 strength bilaterally lower extremities. - Psych No abnormalities ASSESSMENT: Pt. is a 72 yo Right-handed white female.On 12/09/2017 she was admitted to [facility] with diagnosis Vertebral Fx.Her impairment category is Orthopaedic Disorders 08 - Pelvic Frac ture (08.3).Pre-morbidly, Pt. was independent/mod-I in Self-Care, Sphincter Control, Transfers Contro l, Communication, Social Cognition, and Locomotion; and she had good Sphincter Control.Currently, she has deficits of Balance, Self-Care, Endurance, Safety Awareness, Transfers Control, Communication, S ocial Cognition, and Locomotion.Pt. is now referred to [facility] for acute in -patient rehabilitation in order to maximize patient's functional independence in activities of daily living, strength, ROM, and mobility.- Rehab Goal Patient has realistic goal of being discharged at assistance level 6-Holly to reside at Home with Fam юлия/Relatives. MDM/PLAN: - Physical Therapy Decreased range of motion - to improve, our physical therapists will perform initial evaluation of p t's status upon admission and devise an individualized program for increasing patient's Range of [place] on. Gait dysfunction - to improve, our physical therapists will perform initial evaluation of pt's statu s upon admission and devise an individualized program for Gait Training, and Wheel Chair mobility Inability to transfer - to improve, our physical therapists will perform initial evaluation of pt's status upon admission and devise an individualized program for Bed mobility Need for home safety evaluation - to improve, our physical therapists will perform initial evaluatio n of pt's status upon admission and devise an individualized program for Home Evaluation Need in caregiver upon discharge - to improve, our physical therapists will perform initial evaluati on of pt's status upon admission and devise an individualized program for Caregiver Training Edema - to improve, our physical therapists will perform initial evaluation of pt's status upon admi ssion and devise an individualized program for Elevation Training, and Lymphedema Therapy New precaution - to improve, our physical therapists will perform initial evaluation of pt's status upon admission and devise an individualized program for Patient precaution education Poor balance - to improve, our physical therapists will perform initial evaluation of pt's status up on admission and devise an individualized program for Balance Training Poor endurance - to improve, our physical therapists will perform initial evaluation of pt's status upon admission and devise an individualized program for Endurance Training Weakness - to improve, our physical therapists will perform initial evaluation of pt's status upon a dmission and devise an individualized program for Aquatic Therapy, Neuromuscular Reeducation, and Str engthening Achieving independence - to improve, our physical therapists will perform initial evaluation of pt's status upon admission and devise an individualized program for Community Reintegration Activities - Occupational Therapy ADL deficits - to improve, our occupation therapists will perform initial evaluation of pt's status upon admission and devise an individualized program for Bathing, Bed mobility, Community Reintegratio n, Cooking, Dressing, Eating, Fine Motor Skills, Grooming, Homemaking, Kitchen Mobility, Laundry, Pat ient Education, Safety Awareness, Splinting - Positioning, Transfers(Toilet, Tub, Shower), and Wheel Chair Management Cognitive deficits - to improve, our occupation therapists will perform initial evaluation of pt's s tatus upon admission and devise an individualized program for Cognition - orientation Need for pulmonary care nurse - to improve, our occupation therapists will perform initial evaluation of pt's status upon admission and devise an individualized program for Caregiver Training Weakness - to improve, our occupation therapists will perform initial evaluation of pt's status upon admission and devise an individualized program for Aquatic Therapy, Balance, Endurance, UE ROM, and UE strengthening - Diet Type Continue Regular - Diet - Liquid Texture Continue Regular - Tube Feed Continue N/A - Skin care per protocol - Diet - Solid Texture Continue Regular - Shower allowing shower FUNCTIONAL STATUS: UPDATED AT WEEKLY TEAM CONFERENCE - Bladder Same accident frequency: 7-Ind - No accidents in the past 7 days - Bowel Same accident frequency: 7-Ind - No accidents in the past 7 days - Walking Same score based on distance walked: 1(<=50ft) FUNCTIONAL STATUS: - Self-Care A. Eating sup B. Grooming sup C. Bathing modA D. Dressing - Upper sup E. Dressing - Lower maxA F. Toileting modA - Sphincter Control G: Bladder control Ind H: Bowel control Ind - Transfers Control I. Bed/Chair/Wheelchair modA J. Toilet modA K. Tub/Shower modA - Locomotion L. Walk/Wheelchair (B) maxA M. Stairs ADNO - Communication N. Comprehension (B) Sheng O. Expression (B) Sheng - Social Cognition P. Social Interaction Sheng Q. Problem Solving Sheng R. Memory Shneg - Endurance Poor - Balance Poor - Safety Awareness Poor CURRENT FUNC. DEFICITS: Balance, Self-Care, Endurance, Safety Awareness, Transfers Control, Communication, Social Cognition, and Locomotion SIGNATURE PANEL: (CDT)
[2017-12-22] MEDS: MELATONIN 3 MG TABLET PO PRN (20:59)
[2017-12-22] MEDS: DOCUSATE NA/SENNA CONC 1 TAB PO PRN (21:00)
[2017-12-23] MEDS: HYDROCODONE/APAP 10/325 TAB PO PRN ×4 (00:19→23:56)
--- NOTE | 2017-12-23 03:12 | FAST ---
SHIFT START DATE/TIME: 12/22/2017 19:00 (CDT) SHIFT END DATE/TIME: 12/23/2017 07:00 (CDT) NAME BRO GRIMM DATE OF : 1945 DATE OF ADMISSION: 12/15/2017 15:20 (CDT) PHONE: AGE: 72 N# [id number] GENDER: Female ENCOUNTER PHYSICIAN: Dr. Joshua Melendez M.D. ADMISSION DIAGNOSIS: - Orthopaedic Disorders 08 - Pelvic Fracture (08.3) Vertebral Fx. EATING: Activity did not occur on this shift EATING - SCORE: 0-UNK GROOMING: Wash, rinse, and dry face Wash, rinse, and dry hands GROOMING - STEP 1: Does the patient require assistance when grooming? Yes. GROOMING - STEP 2: Does the patient require the assistance of a helper? Yes. GROOMING - STEP 3: How much assistance does the patient require from the helper? Cuing, coaxing, instructions, or encour agement for completion of grooming GROOMING - SCORE: 5-SUP BATHING: Activity did not occur on this shift BATHING - SCORE: 0-UNK DRESSING - UPPER BODY: Patient is not dressing in public clothing ARTICLES SCORE Total number of steps: 0 DRESSING - UPPER BODY - SCORE: 0-UNK DRESSING - LOWER BODY: Patient is not dressing in public clothing ARTICLES SCORE Total number of steps: 0 DRESSING - LOWER BODY - SCORE: 0-UNK TOILETING: TOILETING - STEP 1: Does the patient require assistance with toileting? Yes. TOILETING - STEP 2: Does the patient require the assistance of a helper? Yes. TOILETING - STEP 3: How much assistance does the patient require from the helper? Hands-on assistance from the helper TOILETING - STEP 4: Of the 3 tasks: 1) Adjusting clothing prior to use, 2) Cleansing of perineal area, 3) Adjusting clot vinicio after use; How many tasks does the patient perform WITHOUT assistance of the helper? Three tasks with steadying assistance from the helper TOILETING - SCORE: 4-MIN BLADDER MANAGEMENT: BLADDER MANAGEMENT - STEP 1: Does the patient control the bladder completely and intentionally without equipment or devices or med ications, and is always continent? No. BLADDER MANAGEMENT - STEP 2: Does the patient require the assistance of a helper? Yes. BLADDER MANAGEMENT - STEP 3: How much assistance does the patient require from the helper? Only supervision, stand-by, cuing, or c oaxing BLADDER MANAGEMENT - SCORE: 5-SUP BOWEL MANAGEMENT: Activity did not occur on this shift BOWEL MANAGEMENT - SCORE: 7-IND TRANSFERS: BED, CHAIR, WHEELCHAIR: TRANSFERS: BED, CHAIR, WHEELCHAIR - STEP 1: Does the patient require assistance with bed, chair, or wheelchair transfers? Yes. TRANSFERS: BED, CHAIR, WHEELCHAIR - STEP 2: Does the patient require the assistance of a helper? Yes. TRANSFERS: BED, CHAIR, WHEELCHAIR - STEP 3: How much assistance does the patient require from the helper? Lifting of the legs TRANSFERS: BED, CHAIR, WHEELCHAIR - STEP 4: How many legs does the patient require the helper to lift? both legs TRANSFERS: BED, CHAIR, WHEELCHAIR - SCORE: 3-MOD TRANSFERS: TOILET: TRANSFERS: TOILET - STEP 1: Does the patient require assistance with toilet transfers? Yes. TRANSFERS: TOILET - STEP 2: Does the patient require the assistance of a helper? Yes. TRANSFERS: TOILET - STEP 3: How much assistance does the patient require from the helper? Patient performs half or more of the tr ansferring tasks TRANSFERS: TOILET - STEP 4: Does the patient need only incidental help such as contact guard or steadying during toilet transfer? Yes. TRANSFERS: TOILET - SCORE: 4-MIN TRANSFERS: SHOWER: Activity did not occur on this shift TRANSFERS: SHOWER - SCORE: 0-UNK TRANSFERS: TUB: Activity did not occur on this shift TRANSFERS: TUB - SCORE: 0-UNK LOCOMOTION: WALK: Activity did not occur on this shift LOCOMOTION: WALK - SCORE: 0-UNK LOCOMOTION: WHEELCHAIR: Activity did not occur on this shift LOCOMOTION: WHEELCHAIR - SCORE: 0-UNK COMPREHENSION: COMPREHENSION: TYPE: Both COMPREHENSION - STEP 1: Does the patient require help to understand complex and abstract ideas (such as current events, finan lesvia, discharge planning, medical issues, relationships, etc)? No. COMPREHENSION - STEP 2: Does the patient need extra time, require an assistive device (such as glasses for visual comprehensi on or a hearing aid for auditory comprehension) or does s/he have mild difficulty understanding compl ex and abstract information? Yes. COMPREHENSION - SCORE: 6-STACIE EXPRESSION EXPRESSION: TYPE: Both EXPRESSION - STEP 1: Does the patient require help expressing complex and abstract ideas (such as current events, finances , discharge planning, medical issues, relationships, etc)? No. EXPRESSION - STEP 2: Does the patient need extra time, require an assistive device (such as augmentive communication syste m or a communication board), OR does s/he have mild difficulty expressing complex and abstract ideas (including mild dysarthria or mild word-find problems)? Yes. EXPRESSION - SCORE: 6-STACIE SOCIAL INTERACTION: SOCIAL INTERACTION - STEP 1: Does the patient require a helper to interact with others in social and therapeutic situations? No. SOCIAL INTERACTION - STEP 2: Does the patient need extra time in social situations, OR does s/he interact with staff, other patien ts, and family members ONLY in structured environments, OR does s/he require medication for social in teraction? Yes, patient requires medication for social interaction SOCIAL INTERACTION - SCORE: 6-STACIE PROBLEM SOLVING: PROBLEM SOLVING - STEP 1: Does the patient need help to solve complex problems such as managing a checking account or confronti ng interpersonal problems? Yes. PROBLEM SOLVING - STEP 2: Does the patient solve basic routine problems half or more of the time? Yes. PROBLEM SOLVING - STEP 3: How often does the patient need help to solve basic routine problems? 10%-24% of the time PROBLEM SOLVING - SCORE: 4-MIN MEMORY: MEMORY - STEP 1: Does the patient need help to remember frequently encountered people, daily routines, and executing r equests? No. MEMORY - STEP 2: Does the patient have slight difficulty recognizing frequently encountered people, daily routines, or executing requests without the need for repetition or using self-initiated or environmental cues to remember? Yes. MEMORY - SCORE: 6-STACIE SIGNATURE PANEL: The following modified sections: Eating - Score, Grooming - Score, Dressing - Upper Body - Score, Axel ssing - Lower Body - Score, Toileting - Score, Bladder Management - Score, Bowel Management - Score, Transfers: Bed, Chair, Wheelchair - Score, Transfers: Toilet - Score, Transfers: Shower - Score, Parmar sfers: Tub - Score, Locomotion: Walk - Score, Locomotion: Wheelchair - Score, Comprehension - Score, Expression - Score, Social Interaction - Score, Problem Solving - Score, Memory - Score were [electro nically] signed by Eli Escalera CNA on FriDec 23 2017 03:12:14 GMT-0500 (Central Daylight Time)
[2017-12-23] MEDS: ATENOLOL 50 MG TAB PO SCH (05:14)
[2017-12-23] MEDS: PANTOPRAZOLE 40MG TABLET PO SCH ×2 (07:30→12:36)
[2017-12-23] MEDS: POTASSIUM CL SA 10 MEQ TAB PO SCH ×2 (08:00→12:34)
[2017-12-23] MEDS: APIXABAN 2.5 MG TABLET PO SCH ×3 (08:00→19:32)
[2017-12-23] MEDS: ASPIRIN 81 MG CHEWABLE TABLET PO SCH ×2 (08:00→12:36)
[2017-12-23] MEDS: LIDOCAINE 5% PATCH TOP SCH (08:00)
[2017-12-23] MEDS: FE SULF/FA/VIT B COMP & C TAB PO SCH ×2 (08:00→12:37)
[2017-12-23] MEDS: DOCUSATE NA 100 MG CAP PO SCH ×3 (08:00→19:31)
[2017-12-23] MEDS: MAGNESIUM OXIDE 400 MG TAB PO SCH ×3 (08:00→19:32)
[2017-12-23] MEDS: LISINOPRIL 5 MG TAB PO SCH ×2 (08:00→12:36)
[2017-12-23] MEDS: DULOXETINE 20 MG CAP PO SCH ×2 (08:00→12:36)
[2017-12-23] MEDS: FERROUS SULFATE 325 MG TAB PO SCH ×2 (08:00→12:35)
[2017-12-23] MEDS: PROMOD 30 ML DOSE PO SCH ×2 (08:00→19:32)
[2017-12-23] MEDS: ENSURE ENLIVE 237 ML CAN PO SCH ×2 (08:00→19:32)
[2017-12-23] MEDS: CRANBERRY FRUIT EXTRACT 200 MG CAP PO SCH ×3 (08:00→19:31)
[2017-12-23] MEDS ORDERED: HYDROMORPHONE HCL 1 MG/ML INJ IV ONE (08:24)
--- NOTE | 2017-12-23 14:52 | FAST ---
SHIFT START DATE/TIME: 12/23/2017 07:00 (CDT) SHIFT END DATE/TIME: 12/23/2017 19:00 (CDT) NAME BRO GRIMM DATE OF : 1945 DATE OF ADMISSION: 12/15/2017 15:20 (CDT) PHONE: AGE: 72 N# [id number] GENDER: Female ENCOUNTER PHYSICIAN: Dr. Joshua Melendez M.D. ADMISSION DIAGNOSIS: - Orthopaedic Disorders 08 - Pelvic Fracture (08.3) Vertebral Fx. EATING: EATING - STEP 1: Does the patient require assistance when eating? Yes. EATING - STEP 2: Does the patient require the assistance of a helper? No, patient only requires an assistive device, O R s/he takes more than reasonable time to eat, OR there is a safety concern, OR s/he requires modifie d food consistency EATING - SCORE: 6-STACIE GROOMING: Comb/brush hair Oral care Wash, rinse, and dry face Wash, rinse, and dry hands GROOMING - STEP 1: Does the patient require assistance when grooming? Yes. GROOMING - STEP 2: Does the patient require the assistance of a helper? No. The patient only requires an assistive devic e, OR takes more than reasonable time to groom, OR there is a concern for safety as the patient groom s GROOMING - SCORE: 6-STACIE BATHING: Activity did not occur on this shift BATHING - SCORE: 0-UNK DRESSING - UPPER BODY: T-shirt/pullover shirt (four steps) ARTICLES SCORE Total number of steps: 4 DRESSING - UPPER BODY - STEP 1: Does the patient require help when dressing above the waist? Yes. DRESSING - UPPER BODY - STEP 2: Does the patient require the assistance of a helper? No. Patient only requires an assistive device, s uch as a button hook, velcro, or three dimensional map modeler. OR s/he takes more than reasonable time as s/he dresses the upper body. OR there is a concern for safety when s/he dresses the upper body DRESSING - UPPER BODY - SCORE: 6-STACIE DRESSING - LOWER BODY: Elastic waist pants (three steps) Underwear (three steps) ARTICLES SCORE Total number of steps: 6 DRESSING - LOWER BODY - STEP 1: Does the patient require help when dressing below the waist? Yes. DRESSING - LOWER BODY - STEP 2: Does the patient require the assistance of a helper? Yes. DRESSING - LOWER BODY - STEP 3: Does the helper touch the patient while dressing? No. DRESSING - LOWER BODY - SCORE: 5-SUP TOILETING: TOILETING - STEP 1: Does the patient require assistance with toileting? Yes. TOILETING - STEP 2: Does the patient require the assistance of a helper? Yes. TOILETING - STEP 3: How much assistance does the patient require from the helper? Hands-on assistance from the helper TOILETING - STEP 4: Of the 3 tasks: 1) Adjusting clothing prior to use, 2) Cleansing of perineal area, 3) Adjusting clot vinicio after use; How many tasks does the patient perform WITHOUT assistance of the helper? Three tasks with steadying assistance from the helper TOILETING - SCORE: 4-MIN BLADDER MANAGEMENT: BLADDER MANAGEMENT - STEP 1: Does the patient control the bladder completely and intentionally without equipment or devices or med ications, and is always continent? No. BLADDER MANAGEMENT - STEP 2: Does the patient require the assistance of a helper? No, patient only requires extra time BLADDER MANAGEMENT - SCORE: 6-STACIE BLADDER MANAGEMENT - FREQUENCY OF ACCIDENTS: BLADDER MANAGEMENT(FA) - STEP 1: How many accidents has the patient had during the current shift? 0 BOWEL MANAGEMENT: BOWEL MANAGEMENT - STEP 1: Does the patient control bowels completely and intentionally without equipment devices or medications AND is always continent? No. BOWEL MANAGEMENT - STEP 2: Does the patient require the assistance of a helper? No, patient requires medication for control such as stool softeners, suppositories, laxatives, enemas, or OTC medications BOWEL MANAGEMENT - SCORE: 6-STACIE BOWEL MANAGEMENT - FREQUENCY OF ACCIDENTS: BOWEL MANAGEMENT(FA) - STEP 1: How many accidents has the patient had during the current shift? 0 TRANSFERS: BED, CHAIR, WHEELCHAIR: TRANSFERS: BED, CHAIR, WHEELCHAIR - STEP 1: Does the patient require assistance with bed, chair, or wheelchair transfers? Yes. TRANSFERS: BED, CHAIR, WHEELCHAIR - STEP 2: Does the patient require the assistance of a helper? Yes. TRANSFERS: BED, CHAIR, WHEELCHAIR - STEP 3: How much assistance does the patient require from the helper? Lifting of the legs TRANSFERS: BED, CHAIR, WHEELCHAIR - STEP 4: How many legs does the patient require the helper to lift? both legs TRANSFERS: BED, CHAIR, WHEELCHAIR - SCORE: 3-MOD TRANSFERS: TOILET: TRANSFERS: TOILET - STEP 1: Does the patient require assistance with toilet transfers? Yes. TRANSFERS: TOILET - STEP 2: Does the patient require the assistance of a helper? Yes. TRANSFERS: TOILET - STEP 3: How much assistance does the patient require from the helper? Patient performs half or more of the tr ansferring tasks TRANSFERS: TOILET - STEP 4: Does the patient need only incidental help such as contact guard or steadying during toilet transfer? No. Patient needs more than incidental help TRANSFERS: TOILET - SCORE: 3-MOD TRANSFERS: SHOWER: Activity did not occur on this shift TRANSFERS: SHOWER - SCORE: 0-UNK TRANSFERS: TUB: Activity did not occur on this shift TRANSFERS: TUB - SCORE: 0-UNK LOCOMOTION: WALK: Activity did not occur on this shift LOCOMOTION: WALK - SCORE: 0-UNK LOCOMOTION: WHEELCHAIR: LOCOMOTION: WHEELCHAIR - STEP 1: Does the patient need help to go 150 feet in a wheelchair? Yes. LOCOMOTION: WHEELCHAIR - STEP 2: How much assistance does the patient need from the helper? More than incidental help LOCOMOTION: WHEELCHAIR - SCORE: 3-MOD COMPREHENSION: COMPREHENSION: TYPE: Both COMPREHENSION - STEP 1: Does the patient require help to understand complex and abstract ideas (such as current events, finan lesvia, discharge planning, medical issues, relationships, etc)? No. COMPREHENSION - STEP 2: Does the patient need extra time, require an assistive device (such as glasses for visual comprehensi on or a hearing aid for auditory comprehension) or does s/he have mild difficulty understanding compl ex and abstract information? Yes. COMPREHENSION - SCORE: 6-STACIE EXPRESSION EXPRESSION: TYPE: Both EXPRESSION - STEP 1: Does the patient require help expressing complex and abstract ideas (such as current events, finances , discharge planning, medical issues, relationships, etc)? No. EXPRESSION - STEP 2: Does the patient need extra time, require an assistive device (such as augmentive communication syste m or a communication board), OR does s/he have mild difficulty expressing complex and abstract ideas (including mild dysarthria or mild word-find problems)? Yes. EXPRESSION - SCORE: 6-STACIE SOCIAL INTERACTION: SOCIAL INTERACTION - STEP 1: Does the patient require a helper to interact with others in social and therapeutic situations? No. SOCIAL INTERACTION - STEP 2: Does the patient need extra time in social situations, OR does s/he interact with staff, other patien ts, and family members ONLY in structured environments, OR does s/he require medication for social in teraction? Yes, patient needs extra time SOCIAL INTERACTION - SCORE: 6-STACIE PROBLEM SOLVING: PROBLEM SOLVING - STEP 1: Does the patient need help to solve complex problems such as managing a checking account or confronti ng interpersonal problems? No. PROBLEM SOLVING - STEP 2: Does the patient require extra time to make decisions or solve problems, OR does s/he have slight dif ficulty reading, initiating, or self-correcting in unfamiliar situations? Yes, patient needs extra ti me. PROBLEM SOLVING - SCORE: 6-STACIE MEMORY: MEMORY - STEP 1: Does the patient need help to remember frequently encountered people, daily routines, and executing r equests? No. MEMORY - STEP 2: Does the patient have slight difficulty recognizing frequently encountered people, daily routines, or executing requests without the need for repetition or using self-initiated or environmental cues to remember? Yes. MEMORY - SCORE: 6-STACIE SIGNATURE PANEL: The following modified sections: Eating - Score, Grooming - Score, Bathing - Score, Dressing - Upper Body - Score, Dressing - Lower Body - Score, Toileting - Score, Bladder Management - Score, Bowel Man agement - Score, Transfers: Bed, Chair, Wheelchair - Score, Transfers: Toilet - Score, Transfers: Laurel wer - Score, Transfers: Tub - Score, Locomotion: Walk - Score, Locomotion: Wheelchair - Score, Compre hension - Score, Expression - Score, Social Interaction - Score, Problem Solving - Score, Memory - Sc ore were [electronically] signed by Milagro Yoo C.N.A. on FriDec 23 2017 14:51:28 T-0500 (Centra l Daylight Time)
[2017-12-23] MEDS: TRAMADOL HCL 50 MG TAB PO PRN (19:30)
[2017-12-23] MEDS: ONDANSETRON 4 MG (ODT) TAB PO PRN (19:30)
[2017-12-23] MEDS: DOCUSATE NA/SENNA CONC 1 TAB PO SCH (20:12)
--- NOTE | 2017-12-23 22:00 | R.PN ---
ENCOUNTER DATE AND TIME: 12/23/2017 21:56 (CDT) NAME BRO GRIMM DATE OF : 1945 DATE OF ADMISSION: 12/15/2017 15:20 (CDT) Vertebral FxCHIEF COMPLAINT: Pubic and vertebral fracture SUBJECTIVE: Pt denied any Shortness of Breath. Pt denied any depression. Ambulated 235' with contact guard assistance with a rolling walker. Mobilized 100' using a wheelchair . Therapeutic exercised done with good performance. VITAL SIGNS Temperature: 97.7 F SBP/DBP: 124/56 Pulse: 58 Resp: 16 MEDICATION ALLERGIES: No Known Drug Allergies (NKDA) ENVIRONMENTAL ALLERGIES: - Substance Allergies None Known - Other Allergies None Known NURSING: - Shower allowing shower - Skin care per protocol ACTIVITIES OOB only with supervision THERAPIES: - Occupational Therapy Evaluate and Treat. - Physical Therapy Evaluate and Treat. PHYSICAL EXAM - Gen Alert and awake Lying in bed No apparent distress Oriented to: person, time, and place - Skin No skin breakdown. No abnormalities - Eyes No abnormalities - ENMT No abnormalities - Neck No abnormalities - CVS RRR - Chest Clear - Abd Soft - GI Non distended Deferred - No abnormalities - Ext No significant edema - MSK 4+/5 weakness in both lower extremities. - Neuro 4/5 strength bilaterally lower extremities. - Psych No abnormalities ASSESSMENT: Pt. is a 72 yo Right-handed white female.On 12/09/2017 she was admitted to [facility] with diagnosis Vertebral Fx.Her impairment category is Orthopaedic Disorders 08 - Pelvic Frac ture (08.3).Pre-morbidly, Pt. was independent/mod-I in Self-Care, Sphincter Control, Transfers Contro l, Communication, Social Cognition, and Locomotion; and she had good Sphincter Control.Currently, she has deficits of Balance, Self-Care, Endurance, Safety Awareness, Transfers Control, Communication, S ocial Cognition, and Locomotion.Pt. is now referred to [facility] for acute in -patient rehabilitation in order to maximize patient's functional independence in activities of daily living, strength, ROM, and mobility.- Rehab Goal Patient has realistic goal of being discharged at assistance level 6-Holly to reside at Home with Fam юлия/Relatives. MDM/PLAN: - Physical Therapy Decreased range of motion - to improve, our physical therapists will perform initial evaluation of p t's status upon admission and devise an individualized program for increasing patient's Range of [place] on. Gait dysfunction - to improve, our physical therapists will perform initial evaluation of pt's statu s upon admission and devise an individualized program for Gait Training, and Wheel Chair mobility Inability to transfer - to improve, our physical therapists will perform initial evaluation of pt's status upon admission and devise an individualized program for Bed mobility Need for home safety evaluation - to improve, our physical therapists will perform initial evaluatio n of pt's status upon admission and devise an individualized program for Home Evaluation Need in caregiver upon discharge - to improve, our physical therapists will perform initial evaluati on of pt's status upon admission and devise an individualized program for Caregiver Training Edema - to improve, our physical therapists will perform initial evaluation of pt's status upon admi ssion and devise an individualized program for Elevation Training, and Lymphedema Therapy New precaution - to improve, our physical therapists will perform initial evaluation of pt's status upon admission and devise an individualized program for Patient precaution education Poor balance - to improve, our physical therapists will perform initial evaluation of pt's status up on admission and devise an individualized program for Balance Training Poor endurance - to improve, our physical therapists will perform initial evaluation of pt's status upon admission and devise an individualized program for Endurance Training Weakness - to improve, our physical therapists will perform initial evaluation of pt's status upon a dmission and devise an individualized program for Aquatic Therapy, Neuromuscular Reeducation, and Str engthening Achieving independence - to improve, our physical therapists will perform initial evaluation of pt's status upon admission and devise an individualized program for Community Reintegration Activities - Occupational Therapy ADL deficits - to improve, our occupation therapists will perform initial evaluation of pt's status upon admission and devise an individualized program for Bathing, Bed mobility, Community Reintegratio n, Cooking, Dressing, Eating, Fine Motor Skills, Grooming, Homemaking, Kitchen Mobility, Laundry, Pat ient Education, Safety Awareness, Splinting - Positioning, Transfers(Toilet, Tub, Shower), and Wheel Chair Management Cognitive deficits - to improve, our occupation therapists will perform initial evaluation of pt's s tatus upon admission and devise an individualized program for Cognition - orientation Need for care assistant - to improve, our occupation therapists will perform initial evaluation of pt's status upon admission and devise an individualized program for Caregiver Training Weakness - to improve, our occupation therapists will perform initial evaluation of pt's status upon admission and devise an individualized program for Aquatic Therapy, Balance, Endurance, UE ROM, and UE strengthening - Diet Type Continue Regular - Diet - Liquid Texture Continue Regular - Tube Feed Continue N/A - Skin care per protocol - Diet - Solid Texture Continue Regular - Shower allowing shower FUNCTIONAL STATUS: UPDATED AT WEEKLY TEAM CONFERENCE - Bladder Same accident frequency: 7-Ind - No accidents in the past 7 days - Bowel Same accident frequency: 7-Ind - No accidents in the past 7 days - Walking Same score based on distance walked: 1(<=50ft) FUNCTIONAL STATUS: - Self-Care A. Eating sup B. Grooming sup C. Bathing modA D. Dressing - Upper sup E. Dressing - Lower maxA F. Toileting modA - Sphincter Control G: Bladder control Ind H: Bowel control Ind - Transfers Control I. Bed/Chair/Wheelchair modA J. Toilet modA K. Tub/Shower modA - Locomotion L. Walk/Wheelchair (B) maxA M. Stairs ADNO - Communication N. Comprehension (B) Sheng O. Expression (B) Sheng - Social Cognition P. Social Interaction Sheng Q. Problem Solving Sheng R. Memory Sheng - Endurance Poor - Balance Poor - Safety Awareness Poor CURRENT FUNC. DEFICITS: Balance, Self-Care, Endurance, Safety Awareness, Transfers Control, Communication, Social Cognition, and Locomotion SIGNATURE PANEL: (CDT)
[2017-12-23] MEDS: MELATONIN 3 MG TABLET PO PRN (23:57)
--- NOTE | 2017-12-24 01:38 | FAST ---
SHIFT START DATE/TIME: 12/23/2017 19:00 (CDT) SHIFT END DATE/TIME: 12/24/2017 07:00 (CDT) NAME BRO GRIMM DATE OF : 1945 DATE OF ADMISSION: 12/15/2017 15:20 (CDT) PHONE: AGE: 72 N# [id number] GENDER: Female ENCOUNTER PHYSICIAN: Dr. Joshua Melendez M.D. ADMISSION DIAGNOSIS: - Orthopaedic Disorders 08 - Pelvic Fracture (08.3) Vertebral Fx. EATING: Activity did not occur on this shift EATING - SCORE: 0-UNK GROOMING: Wash, rinse, and dry hands GROOMING - STEP 1: Does the patient require assistance when grooming? Yes. GROOMING - STEP 2: Does the patient require the assistance of a helper? Yes. GROOMING - STEP 3: How much assistance does the patient require from the helper? Cuing, coaxing, instructions, or encour agement for completion of grooming GROOMING - SCORE: 5-SUP BATHING: Activity did not occur on this shift BATHING - SCORE: 0-UNK DRESSING - UPPER BODY: Patient is not dressing in public clothing ARTICLES SCORE Total number of steps: 0 DRESSING - UPPER BODY - SCORE: 0-UNK DRESSING - LOWER BODY: Patient is not dressing in public clothing ARTICLES SCORE Total number of steps: 0 DRESSING - LOWER BODY - SCORE: 0-UNK TOILETING: TOILETING - STEP 1: Does the patient require assistance with toileting? Yes. TOILETING - STEP 2: Does the patient require the assistance of a helper? Yes. TOILETING - STEP 3: How much assistance does the patient require from the helper? Hands-on assistance from the helper TOILETING - STEP 4: Of the 3 tasks: 1) Adjusting clothing prior to use, 2) Cleansing of perineal area, 3) Adjusting clot vinicio after use; How many tasks does the patient perform WITHOUT assistance of the helper? Two tasks TOILETING - SCORE: 3-MOD BLADDER MANAGEMENT: BLADDER MANAGEMENT - STEP 1: Does the patient control the bladder completely and intentionally without equipment or devices or med ications, and is always continent? No. BLADDER MANAGEMENT - STEP 2: Does the patient require the assistance of a helper? Yes. BLADDER MANAGEMENT - STEP 3: How much assistance does the patient require from the helper? Only supervision, stand-by, cuing, or c oaxing BLADDER MANAGEMENT - SCORE: 5-SUP BOWEL MANAGEMENT: Activity did not occur on this shift BOWEL MANAGEMENT - SCORE: 7-IND TRANSFERS: BED, CHAIR, WHEELCHAIR: TRANSFERS: BED, CHAIR, WHEELCHAIR - STEP 1: Does the patient require assistance with bed, chair, or wheelchair transfers? Yes. TRANSFERS: BED, CHAIR, WHEELCHAIR - STEP 2: Does the patient require the assistance of a helper? Yes. TRANSFERS: BED, CHAIR, WHEELCHAIR - STEP 3: How much assistance does the patient require from the helper? Lifting of the legs TRANSFERS: BED, CHAIR, WHEELCHAIR - STEP 4: How many legs does the patient require the helper to lift? both legs TRANSFERS: BED, CHAIR, WHEELCHAIR - SCORE: 3-MOD TRANSFERS: TOILET: TRANSFERS: TOILET - STEP 1: Does the patient require assistance with toilet transfers? Yes. TRANSFERS: TOILET - STEP 2: Does the patient require the assistance of a helper? Yes. TRANSFERS: TOILET - STEP 3: How much assistance does the patient require from the helper? Patient performs half or more of the tr ansferring tasks TRANSFERS: TOILET - STEP 4: Does the patient need only incidental help such as contact guard or steadying during toilet transfer? Yes. TRANSFERS: TOILET - SCORE: 4-MIN TRANSFERS: SHOWER: Activity did not occur on this shift TRANSFERS: SHOWER - SCORE: 0-UNK TRANSFERS: TUB: Activity did not occur on this shift TRANSFERS: TUB - SCORE: 0-UNK LOCOMOTION: WALK: Activity did not occur on this shift LOCOMOTION: WALK - SCORE: 0-UNK LOCOMOTION: WHEELCHAIR: Activity did not occur on this shift LOCOMOTION: WHEELCHAIR - SCORE: 0-UNK COMPREHENSION: COMPREHENSION: TYPE: Both COMPREHENSION - STEP 1: Does the patient require help to understand complex and abstract ideas (such as current events, finan lesvia, discharge planning, medical issues, relationships, etc)? No. COMPREHENSION - STEP 2: Does the patient need extra time, require an assistive device (such as glasses for visual comprehensi on or a hearing aid for auditory comprehension) or does s/he have mild difficulty understanding compl ex and abstract information? Yes. COMPREHENSION - SCORE: 6-STACIE EXPRESSION EXPRESSION: TYPE: Both EXPRESSION - STEP 1: Does the patient require help expressing complex and abstract ideas (such as current events, finances , discharge planning, medical issues, relationships, etc)? No. EXPRESSION - STEP 2: Does the patient need extra time, require an assistive device (such as augmentive communication syste m or a communication board), OR does s/he have mild difficulty expressing complex and abstract ideas (including mild dysarthria or mild word-find problems)? Yes. EXPRESSION - SCORE: 6-STACIE SOCIAL INTERACTION: SOCIAL INTERACTION - STEP 1: Does the patient require a helper to interact with others in social and therapeutic situations? No. SOCIAL INTERACTION - STEP 2: Does the patient need extra time in social situations, OR does s/he interact with staff, other patien ts, and family members ONLY in structured environments, OR does s/he require medication for social in teraction? Yes, patient requires medication for social interaction SOCIAL INTERACTION - SCORE: 6-STACIE PROBLEM SOLVING: PROBLEM SOLVING - STEP 1: Does the patient need help to solve complex problems such as managing a checking account or confronti ng interpersonal problems? Yes. PROBLEM SOLVING - STEP 2: Does the patient solve basic routine problems half or more of the time? Yes. PROBLEM SOLVING - STEP 3: How often does the patient need help to solve basic routine problems? 10%-24% of the time PROBLEM SOLVING - SCORE: 4-MIN MEMORY: MEMORY - STEP 1: Does the patient need help to remember frequently encountered people, daily routines, and executing r equests? No. MEMORY - STEP 2: Does the patient have slight difficulty recognizing frequently encountered people, daily routines, or executing requests without the need for repetition or using self-initiated or environmental cues to remember? Yes. MEMORY - SCORE: 6-STACIE SIGNATURE PANEL: The following modified sections: Eating - Score, Grooming - Score, Dressing - Upper Body - Score, Axel ssing - Lower Body - Score, Toileting - Score, Bladder Management - Score, Bowel Management - Score, Transfers: Bed, Chair, Wheelchair - Score, Transfers: Toilet - Score, Transfers: Shower - Score, Parmar sfers: Tub - Score, Locomotion: Walk - Score, Locomotion: Wheelchair - Score, Comprehension - Score, Expression - Score, Social Interaction - Score, Problem Solving - Score, Memory - Score were [electro nically] signed by Eli Escalera CNA on FriDec 24 2017 01:37:05 [facility]-0500 (Central Daylight Time)
[2017-12-24] MEDS: ATENOLOL 50 MG TAB PO SCH (05:18)
[2017-12-24] MEDS: HYDROCODONE/APAP 10/325 TAB PO PRN ×3 (05:31→20:03)
[2017-12-24] MEDS: DULOXETINE 20 MG CAP PO SCH (07:07)
[2017-12-24] MEDS: PANTOPRAZOLE 40MG TABLET PO SCH (07:07)
[2017-12-24] MEDS: CRANBERRY FRUIT EXTRACT 200 MG CAP PO SCH ×2 (07:07→19:05)
[2017-12-24] MEDS: LIDOCAINE 5% PATCH TOP SCH (07:07)
[2017-12-24] MEDS: ENSURE ENLIVE 237 ML CAN PO SCH ×2 (07:07→19:06)
[2017-12-24] MEDS: APIXABAN 2.5 MG TABLET PO SCH ×2 (07:07→19:05)
[2017-12-24] MEDS: DOCUSATE NA 100 MG CAP PO SCH ×2 (07:07→19:06)
[2017-12-24] MEDS: ASPIRIN 81 MG CHEWABLE TABLET PO SCH (07:07)
[2017-12-24] MEDS: FERROUS SULFATE 325 MG TAB PO SCH (07:08)
[2017-12-24] MEDS: FE SULF/FA/VIT B COMP & C TAB PO SCH (07:08)
[2017-12-24] MEDS: POTASSIUM CL SA 10 MEQ TAB PO SCH (07:09)
[2017-12-24] MEDS: MAGNESIUM OXIDE 400 MG TAB PO SCH ×2 (07:09→19:05)
[2017-12-24] MEDS: LISINOPRIL 5 MG TAB PO SCH (07:09)
[2017-12-24] MEDS: PROMOD 30 ML DOSE PO SCH ×2 (07:10→19:07)
--- NOTE | 2017-12-24 10:52 | FAST ---
SHIFT START DATE/TIME: 12/24/2017 07:00 (CDT) SHIFT END DATE/TIME: 12/24/2017 19:00 (CDT) NAME BRO GRIMM DATE OF : 1945 DATE OF ADMISSION: 12/15/2017 15:20 (CDT) PHONE: AGE: 72 N# [id number] GENDER: Female ENCOUNTER PHYSICIAN: Dr. Joshua Melendez M.D. ADMISSION DIAGNOSIS: - Orthopaedic Disorders 08 - Pelvic Fracture (08.3) Vertebral Fx. EATING: EATING - STEP 1: Does the patient require assistance when eating? Yes. EATING - STEP 2: Does the patient require the assistance of a helper? Yes. EATING - STEP 3: Does the patient perform half or more of the eating tasks? Yes. EATING - STEP 4: Does the patient need only supervision, cuing, coaxing OR help to apply an orthosis OR help to cut fo od, open containers, pour liquids, or butter bread? Yes. EATING - SCORE: 5-SUP GROOMING: Activity did not occur on this shift GROOMING - SCORE: 0-UNK BATHING: Activity did not occur on this shift BATHING - SCORE: 0-UNK DRESSING - UPPER BODY: Activity did not occur on this shift ARTICLES SCORE Total number of steps: 0 DRESSING - UPPER BODY - SCORE: 0-UNK DRESSING - LOWER BODY: Activity did not occur on this shift ARTICLES SCORE Total number of steps: 0 DRESSING - LOWER BODY - SCORE: 0-UNK TOILETING: TOILETING - STEP 1: Does the patient require assistance with toileting? Yes. TOILETING - STEP 2: Does the patient require the assistance of a helper? Yes. TOILETING - STEP 3: How much assistance does the patient require from the helper? Hands-on assistance from the helper TOILETING - STEP 4: Of the 3 tasks: 1) Adjusting clothing prior to use, 2) Cleansing of perineal area, 3) Adjusting clot vinicio after use; How many tasks does the patient perform WITHOUT assistance of the helper? Three tasks with steadying assistance from the helper TOILETING - SCORE: 4-MIN BLADDER MANAGEMENT: BLADDER MANAGEMENT - STEP 1: Does the patient control the bladder completely and intentionally without equipment or devices or med ications, and is always continent? No. BLADDER MANAGEMENT - STEP 2: Does the patient require the assistance of a helper? No, patient requires and independently uses an a ssistive device, such as a urinal, bedpan, bedside commode, catheter, absorbent pad, or collecting de vice BLADDER MANAGEMENT - SCORE: 6-STACIE BOWEL MANAGEMENT: Activity did not occur on this shift BOWEL MANAGEMENT - SCORE: 7-IND TRANSFERS: BED, CHAIR, WHEELCHAIR: TRANSFERS: BED, CHAIR, WHEELCHAIR - STEP 1: Does the patient require assistance with bed, chair, or wheelchair transfers? Yes. TRANSFERS: BED, CHAIR, WHEELCHAIR - STEP 2: Does the patient require the assistance of a helper? Yes. TRANSFERS: BED, CHAIR, WHEELCHAIR - STEP 3: How much assistance does the patient require from the helper? Lifting of the patient TRANSFERS: BED, CHAIR, WHEELCHAIR - STEP 4: Does the helper lift the patient ONLY up? ONLY down? Up AND Down? ONLY up. TRANSFERS: BED, CHAIR, WHEELCHAIR - SCORE: 3-MOD TRANSFERS: TOILET: TRANSFERS: TOILET - STEP 1: Does the patient require assistance with toilet transfers? Yes. TRANSFERS: TOILET - STEP 2: Does the patient require the assistance of a helper? Yes. TRANSFERS: TOILET - STEP 3: How much assistance does the patient require from the helper? Patient performs half or more of the tr ansferring tasks TRANSFERS: TOILET - STEP 4: Does the patient need only incidental help such as contact guard or steadying during toilet transfer? Yes. TRANSFERS: TOILET - SCORE: 4-MIN TRANSFERS: SHOWER: Activity did not occur on this shift TRANSFERS: SHOWER - SCORE: 0-UNK TRANSFERS: TUB: Activity did not occur on this shift TRANSFERS: TUB - SCORE: 0-UNK LOCOMOTION: WALK: Activity did not occur on this shift LOCOMOTION: WALK - SCORE: 0-UNK LOCOMOTION: WHEELCHAIR: Activity did not occur on this shift LOCOMOTION: WHEELCHAIR - SCORE: 0-UNK COMPREHENSION: COMPREHENSION: TYPE: Both COMPREHENSION - STEP 1: Does the patient require help to understand complex and abstract ideas (such as current events, finan lesvia, discharge planning, medical issues, relationships, etc)? Yes. COMPREHENSION - STEP 2: Does the patient require help to understand questions or statements about basic needs or ideas (such as hunger, thirst, sleep, safety, daily schedule, room location, or discomfort) half or more of the t cyrus? No. COMPREHENSION - STEP 3: How often does the patient need help to understand directions and conversation about basic needs? 10% - 24% of the time COMPREHENSION - SCORE: 4-MIN EXPRESSION EXPRESSION: TYPE: Both EXPRESSION - STEP 1: Does the patient require help expressing complex and abstract ideas (such as current events, finances , discharge planning, medical issues, relationships, etc)? Yes. EXPRESSION - STEP 2: Does the patient require help to express basic necessities or ideas (such as hunger, thirst, sleep, s afety, daily schedule, room location, or discomfort) half or more of the time? No. EXPRESSION - STEP 3: How often does the patient need help to express directions and conversation about basic needs? 10-24% of the time EXPRESSION - SCORE: 4-MIN SOCIAL INTERACTION: SOCIAL INTERACTION - STEP 1: Does the patient require a helper to interact with others in social and therapeutic situations? Yes. SOCIAL INTERACTION - STEP 2: Does the patient interact appropriately half or more of the time? Yes. SOCIAL INTERACTION - STEP 3: How often does the patient need help to interact appropriately? 10-24% of the time SOCIAL INTERACTION - SCORE: 4-MIN PROBLEM SOLVING: PROBLEM SOLVING - STEP 1: Does the patient need help to solve complex problems such as managing a checking account or confronti ng interpersonal problems? Yes. PROBLEM SOLVING - STEP 2: Does the patient solve basic routine problems half or more of the time? Yes. PROBLEM SOLVING - STEP 3: How often does the patient need help to solve basic routine problems? 10%-24% of the time PROBLEM SOLVING - SCORE: 4-MIN MEMORY: MEMORY - STEP 1: Does the patient need help to remember frequently encountered people, daily routines, and executing r equests? Yes. MEMORY - STEP 2: How often does the patient need help to remember frequently encountered people, daily routines, and e xecuting requests? 10% - 24% of the time MEMORY - SCORE: 4-MIN SIGNATURE PANEL: The following modified sections: Eating - Score, Grooming - Score, Bathing - Score, Dressing - Upper Body - Score, Dressing - Lower Body - Score, Toileting - Score, Bladder Management - Score, Bowel Man agement - Score, Transfers: Bed, Chair, Wheelchair - Score, Transfers: Toilet - Score, Transfers: Laurel wer - Score, Transfers: Tub - Score, Locomotion: Walk - Score, Locomotion: Wheelchair - Score, Compre hension - Score, Expression - Score, Social Interaction - Score, Problem Solving - Score, Memory - Sc ore were [electronically] signed by Shubham Camarillo on FriDec 24 2017 10:51:03 T-0500 (Central Daylight Time)
[2017-12-24] MEDS ORDERED: Ringers Lactate 1,000 ML IV ONE (11:11)
[2017-12-24] MEDS ORDERED: PROPOFOL 200 MG/20 ML VIAL IV ONE (12:26)
--- NOTE | 2017-12-24 13:11 | ENDO RPT ---
[address], [address] EGD PROCEDURE REPORT EXAM DATE: 12/24/2017 PATIENT NAME: Arianne Ambriz MR#: [id number] BIRTHDATE: 1945 ATTENDING: Varinder Coleman Dr STATUS: inpatient - [facility] MACH[facility] OPERATOR: Kyra Paiz and Kathy Regan RN INDICATIONS: The patient is a 72 yr old Female here for an EGD due to iron deficiency anemia, hemoccult positive stools, upper G.I. bleeding, and GERD PROCEDURE PERFORMED: EGD with biopsy MEDICATIONS: Per Anesthesia. TOPICAL ANESTHETIC: none CONSENT: The patient understands the risks and benefits of the procedure and understands that these risks include, but are not limited to: sedation, allergic reaction, infection, perforation and/or bleeding. Alternative means of evaluation and treatment include, among others: physical exam, x-rays, and/or surgical intervention. The patient elects to proceed with this endoscopic procedure. DESCRIPTION OF PROCEDURE: During intra-op preparation period all mechanical medical equipment was checked for proper function. Hand hygiene and appropriate measures for infection prevention was taken. Procedure, possible complications, and alternatives including but not limited to the possibility of bleeding, perforation, tear, infection, sepsis, need for surgery, need for blood transfusion, and anesthesia related complications were explained to the patient. After the risks, benefits and alternatives of the procedure were thoroughly explained, Informed consent was verified, confirmed and timeout was successfully executed by the treatment team. The patient was placed in the left lateral position. The patient was anesthetized with topical anesthesia. Through the anesthetized oropharyngeal area, the scope was passed without any difficulty. The EG-[id number] ([id number]) endoscope was introduced through the mouth and advanced to the third portion of the duodenum. Retroflexed views revealed a moderate sized hiatal hernia. The gastroscope was then slowly withdrawn and removed. A moderate sized hiatal hernia was found Moderate gastritis was found in the antrum. Multiple biopsies were obtained and sent to pathology. Small bowel biopsies obtained with history of iron deficiency anemia. ADVERSE EVENTS: There were no complications. IMPRESSIONS: 1. A moderate sized hiatal hernia 2. Moderate gastritis in the antrum, s/p biopsies 3. Small bowel biopsies obtained with history of iron deficiency anemia RECOMMENDATIONS: 1. await biopsy results 2. acid suppression therapy REPEAT EXAM: for Colonoscopy when pelvis fracture heals (still with significant pain in left hip / side). Varinder Coleman Dr eSigned: Varinder Coleman Dr 12/24/2017 1:00 PM cc: Joshua Melendez CPT CODES: ICD9 CODES: PATIENT NAME: Arianne Ambriz MR#: [id number]
[2017-12-24] MEDS ORDERED: MORPHINE 4 MG/ML SYR ONE (13:23)
[2017-12-24 13:24] VITALS: O2SAT 100
--- NOTE | 2017-12-24 14:44 | FAST ---
ENCOUNTER DATE AND TIME: 12/24/2017 08:00 (CDT) NAME BRO GRIMM DATE OF : 1945 DATE OF ADMISSION: 12/15/2017 15:20 (CDT) PHONE: AGE: 72 N# [id number] GENDER: Female ENCOUNTER PHYSICIAN: Dr. Joshua Melendez M.D. ADMISSION DIAGNOSIS: - Orthopaedic Disorders 08 - Pelvic Fracture (08.3) Vertebral Fx. EATING: Activity did not occur on this shift EATING - SCORE: 0-UNK GROOMING: Comb/brush hair Oral care Wash, rinse, and dry face Wash, rinse, and dry hands GROOMING - STEP 1: Does the patient require assistance when grooming? No. GROOMING - SCORE: 7-IND BATHING: Abdomen Buttocks Chest Left arm Left lower leg and foot Left upper leg Perineal area Right arm Right lower leg and foot Right upper leg BATHING - STEP 1: Does the patient require assistance when bathing? Yes. BATHING - STEP 2: Does the patient require the assistance of a helper? No. The patient only requires an assistive devic e such as a bath jourdan, OR the patient takes more than reasonable time to bathe, OR there is a concern for safety such as regulating water temperature as the patient bathes. BATHING - SCORE: 6-STACIE DRESSING - UPPER BODY: T-shirt/pullover shirt (four steps) ARTICLES SCORE Total number of steps: 4 DRESSING - UPPER BODY - STEP 1: Does the patient require help when dressing above the waist? No. DRESSING - UPPER BODY - SCORE: 7-IND DRESSING - LOWER BODY: Elastic waist pants (three steps) Sock - Left foot (one step) Sock - Right foot (one step) Underwear (three steps) ARTICLES SCORE Total number of steps: 8 DRESSING - LOWER BODY - STEP 1: Does the patient require help when dressing below the waist? Yes. DRESSING - LOWER BODY - STEP 2: Does the patient require the assistance of a helper? No. Patient requires an assistive device such as a bank worker. OR s/he takes more than reasonable time as s/he dresses the lower body, OR there is a con cern for safety when s/he dresses the lower body DRESSING - LOWER BODY - SCORE: 6-STACIE TOILETING: Activity did not occur on this shift TOILETING - SCORE: 0-UNK BLADDER MANAGEMENT: Activity did not occur on this shift BLADDER MANAGEMENT - SCORE: 7-IND BOWEL MANAGEMENT: Activity did not occur on this shift BOWEL MANAGEMENT - SCORE: 7-IND TRANSFERS: BED, CHAIR, WHEELCHAIR: Activity did not occur on this shift TRANSFERS: BED, CHAIR, WHEELCHAIR - SCORE: 0-UNK TRANSFERS: TOILET: Activity did not occur on this shift TRANSFERS: TOILET - SCORE: 0-UNK TRANSFERS: SHOWER: TRANSFERS: SHOWER - STEP 1: Does the patient require assistance with shower transfers? Yes. TRANSFERS: SHOWER - STEP 2: Does the patient require the assistance of a helper? No. The patient only uses an assistive device, t akes more than reasonable time, OR there is a concern for safety when s/he performs transfers. TRANSFERS: SHOWER - SCORE: 6-STACIE TRANSFERS: TUB: Activity did not occur on this shift TRANSFERS: TUB - SCORE: 0-UNK LOCOMOTION: WALK: Activity did not occur on this shift LOCOMOTION: WALK - SCORE: 0-UNK LOCOMOTION: WHEELCHAIR: Activity did not occur on this shift LOCOMOTION: WHEELCHAIR - SCORE: 0-UNK LOCOMOTION: STAIRS: Activity did not occur on this shift LOCOMOTION: STAIRS - SCORE: 0-UNK COMPREHENSION: COMPREHENSION: TYPE: Visual COMPREHENSION - STEP 1: Does the patient require help to understand complex and abstract ideas (such as current events, finan lesvia, discharge planning, medical issues, relationships, etc)? No. COMPREHENSION - STEP 2: Does the patient need extra time, require an assistive device (such as glasses for visual comprehensi on or a hearing aid for auditory comprehension) or does s/he have mild difficulty understanding compl ex and abstract information? Yes. COMPREHENSION - SCORE: 6-STACIE EXPRESSION EXPRESSION: TYPE: Non-Vocal EXPRESSION - STEP 1: Does the patient require help expressing complex and abstract ideas (such as current events, finances , discharge planning, medical issues, relationships, etc)? No. EXPRESSION - STEP 2: Does the patient need extra time, require an assistive device (such as augmentive communication syste m or a communication board), OR does s/he have mild difficulty expressing complex and abstract ideas (including mild dysarthria or mild word-find problems)? No. EXPRESSION - SCORE: 7-IND SOCIAL INTERACTION: SOCIAL INTERACTION - STEP 1: Does the patient require a helper to interact with others in social and therapeutic situations? No. SOCIAL INTERACTION - STEP 2: Does the patient need extra time in social situations, OR does s/he interact with staff, other patien ts, and family members ONLY in structured environments, OR does s/he require medication for social in teraction? No. SOCIAL INTERACTION - SCORE: 7-IND PROBLEM SOLVING: PROBLEM SOLVING - STEP 1: Does the patient need help to solve complex problems such as managing a checking account or confronti ng interpersonal problems? Yes. PROBLEM SOLVING - STEP 2: Does the patient solve basic routine problems half or more of the time? Yes. PROBLEM SOLVING - STEP 3: How often does the patient need help to solve basic routine problems? Less than 10% of the time PROBLEM SOLVING - SCORE: 5-SUP MEMORY: MEMORY - STEP 1: Does the patient need help to remember frequently encountered people, daily routines, and executing r equests? Yes. MEMORY - STEP 2: How often does the patient need help to remember frequently encountered people, daily routines, and e xecuting requests? Less than 10% of the time MEMORY - SCORE: 5-SUP SIGNATURE PANEL: The following modified sections: Eating - Score, Grooming - Score, Bathing - Score, Dressing - Upper Body - Score, Dressing - Lower Body - Score, Toileting - Score, Transfers: Bed, Chair, Wheelchair - S core, Transfers: Toilet - Score, Transfers: Shower - Score, Transfers: Tub - Score, Comprehension - S core, Expression - Score, Social Interaction - Score, Problem Solving - Score, Memory - Score were [e lectronically] signed by QUINCY Durant on FriDec 24 2017 14:44:00 T-0500 ([facility] Time)
--- NOTE | 2017-12-24 16:13 | FAST ---
ENCOUNTER DATE AND TIME: 12/24/2017 08:00 (CDT) NAME BRO GRIMM DATE OF : 1945 DATE OF ADMISSION: 12/15/2017 15:20 (CDT) PHONE: AGE: 72 SSN# [id number] GENDER: Female ENCOUNTER PHYSICIAN: Dr. Joshua Melendez M.D. ADMISSION DIAGNOSIS: - Orthopaedic Disorders 08 - Pelvic Fracture (08.3) Vertebral Fx. EATING: Activity did not occur on this shift EATING - SCORE: 0-UNK GROOMING: Activity did not occur on this shift GROOMING - SCORE: 0-UNK BATHING: Activity did not occur on this shift BATHING - SCORE: 0-UNK DRESSING - UPPER BODY: Activity did not occur on this shift Patient is not dressing in public clothing ARTICLES SCORE Total number of steps: 0 DRESSING - UPPER BODY - SCORE: 0-UNK DRESSING - LOWER BODY: Activity did not occur on this shift Patient is not dressing in public clothing ARTICLES SCORE Total number of steps: 0 DRESSING - LOWER BODY - SCORE: 0-UNK TOILETING: Activity did not occur on this shift TOILETING - SCORE: 0-UNK BLADDER MANAGEMENT: Activity did not occur on this shift BLADDER MANAGEMENT - SCORE: 7-IND BOWEL MANAGEMENT: Activity did not occur on this shift BOWEL MANAGEMENT - SCORE: 7-IND TRANSFERS: BED, CHAIR, WHEELCHAIR: TRANSFERS: BED, CHAIR, WHEELCHAIR - STEP 1: Does the patient require assistance with bed, chair, or wheelchair transfers? Yes. TRANSFERS: BED, CHAIR, WHEELCHAIR - STEP 2: Does the patient require the assistance of a helper? Yes. TRANSFERS: BED, CHAIR, WHEELCHAIR - STEP 3: How much assistance does the patient require from the helper? Only supervision TRANSFERS: BED, CHAIR, WHEELCHAIR - SCORE: 5-SUP TRANSFERS: TOILET: Activity did not occur on this shift TRANSFERS: TOILET - SCORE: 0-UNK TRANSFERS: SHOWER: Activity did not occur on this shift TRANSFERS: SHOWER - SCORE: 0-UNK TRANSFERS: TUB: Activity did not occur on this shift TRANSFERS: TUB - SCORE: 0-UNK LOCOMOTION: WALK: LOCOMOTION: WALK - STEP 1: Does the patient need help to walk 150 feet? Yes. LOCOMOTION: WALK - STEP 2: How much assistance does the patient require to walk a minimum of 150 feet? Patient walks less than 1 50 feet - but more than 50 feet - with the assistance of only one helper LOCOMOTION: WALK - SCORE: 2-MAX LOCOMOTION: WHEELCHAIR: LOCOMOTION: WHEELCHAIR - STEP 1: Does the patient need help to go 150 feet in a wheelchair? No. LOCOMOTION: WHEELCHAIR - SCORE: 6-STACIE LOCOMOTION: STAIRS: Activity did not occur on this shift LOCOMOTION: STAIRS - SCORE: 0-UNK COMPREHENSION: COMPREHENSION - SCORE: 0-UNK EXPRESSION EXPRESSION - SCORE: 0-UNK SOCIAL INTERACTION: SOCIAL INTERACTION - SCORE: 0-UNK PROBLEM SOLVING: PROBLEM SOLVING - SCORE: 0-UNK MEMORY: MEMORY - SCORE: 0-UNK SIGNATURE PANEL: The following modified sections: Transfers: Bed, Chair, Wheelchair - Score, Transfers: Toilet - Score , Locomotion: Walk - Score, Locomotion: Wheelchair - Score, Locomotion: Stairs - Score were [electron gerri] signed by Karl Olivares PT on FriDec 24 2017 16:12:29 [facility]-0500 (Central Daylight Time)
[2017-12-24] MEDS: TRAMADOL HCL 50 MG TAB PO PRN (16:32)
--- NOTE | 2017-12-24 19:03 | R.PN ---
ENCOUNTER DATE AND TIME: 12/24/2017 19:00 (CDT) NAME BRO GRIMM DATE OF : 1945 DATE OF ADMISSION: 12/15/2017 15:20 (CDT) Vertebral FxCHIEF COMPLAINT: Pubic and vertebral fracture SUBJECTIVE: Pt denied any Shortness of Breath. Pt denied any depression. Ambulated 250' with contact guard assistance with a rolling walker. Mobilized 250' using a wheelchair with modified independence. Therapeutic exercised done with good performance. VITAL SIGNS Temperature: 98.9 F SBP/DBP: 136/57 Pulse: 72 Resp: 16 MEDICATION ALLERGIES: No Known Drug Allergies (NKDA) ENVIRONMENTAL ALLERGIES: - Substance Allergies None Known - Other Allergies None Known NURSING: - Shower allowing shower - Skin care per protocol ACTIVITIES OOB only with supervision THERAPIES: - Occupational Therapy Evaluate and Treat. - Physical Therapy Evaluate and Treat. PHYSICAL EXAM - Gen Alert and awake Lying in bed No apparent distress Oriented to: person, time, and place - Skin No skin breakdown. No abnormalities - Eyes No abnormalities - ENMT No abnormalities - Neck No abnormalities - CVS RRR - Chest Clear - Abd Soft - GI Non distended Deferred - No abnormalities - Ext No significant edema - MSK 4+/5 weakness in both lower extremities. - Neuro 4/5 strength bilaterally lower extremities. - Psych No abnormalities ASSESSMENT: Pt. is a 72 yo Right-handed white female.On 12/09/2017 she was admitted to [facility] with diagnosis Vertebral Fx.Her impairment category is Orthopaedic Disorders 08 - Pelvic Frac ture (08.3).Pre-morbidly, Pt. was independent/mod-I in Self-Care, Sphincter Control, Transfers Contro l, Communication, Social Cognition, and Locomotion; and she had good Sphincter Control.Currently, she has deficits of Balance, Self-Care, Endurance, Safety Awareness, Transfers Control, Communication, S ocial Cognition, and Locomotion.Pt. is now referred to [facility] for acute in -patient rehabilitation in order to maximize patient's functional independence in activities of daily living, strength, ROM, and mobility.- Rehab Goal Patient has realistic goal of being discharged at assistance level 6-Holly to reside at Home with Fam юлия/Relatives. MDM/PLAN: - Physical Therapy Decreased range of motion - to improve, our physical therapists will perform initial evaluation of p t's status upon admission and devise an individualized program for increasing patient's Range of [place] on. Gait dysfunction - to improve, our physical therapists will perform initial evaluation of pt's statu s upon admission and devise an individualized program for Gait Training, and Wheel Chair mobility Inability to transfer - to improve, our physical therapists will perform initial evaluation of pt's status upon admission and devise an individualized program for Bed mobility Need for home safety evaluation - to improve, our physical therapists will perform initial evaluatio n of pt's status upon admission and devise an individualized program for Home Evaluation Need in caregiver upon discharge - to improve, our physical therapists will perform initial evaluati on of pt's status upon admission and devise an individualized program for Caregiver Training Edema - to improve, our physical therapists will perform initial evaluation of pt's status upon admi ssion and devise an individualized program for Elevation Training, and Lymphedema Therapy New precaution - to improve, our physical therapists will perform initial evaluation of pt's status upon admission and devise an individualized program for Patient precaution education Poor balance - to improve, our physical therapists will perform initial evaluation of pt's status up on admission and devise an individualized program for Balance Training Poor endurance - to improve, our physical therapists will perform initial evaluation of pt's status upon admission and devise an individualized program for Endurance Training Weakness - to improve, our physical therapists will perform initial evaluation of pt's status upon a dmission and devise an individualized program for Aquatic Therapy, Neuromuscular Reeducation, and Str engthening Achieving independence - to improve, our physical therapists will perform initial evaluation of pt's status upon admission and devise an individualized program for Community Reintegration Activities - Occupational Therapy ADL deficits - to improve, our occupation therapists will perform initial evaluation of pt's status upon admission and devise an individualized program for Bathing, Bed mobility, Community Reintegratio n, Cooking, Dressing, Eating, Fine Motor Skills, Grooming, Homemaking, Kitchen Mobility, Laundry, Pat ient Education, Safety Awareness, Splinting - Positioning, Transfers(Toilet, Tub, Shower), and Wheel Chair Management Cognitive deficits - to improve, our occupation therapists will perform initial evaluation of pt's s tatus upon admission and devise an individualized program for Cognition - orientation Need for critical care nurse practitioner - to improve, our occupation therapists will perform initial evaluation of pt's status upon admission and devise an individualized program for Caregiver Training Weakness - to improve, our occupation therapists will perform initial evaluation of pt's status upon admission and devise an individualized program for Aquatic Therapy, Balance, Endurance, UE ROM, and UE strengthening - Diet Type Continue Regular - Diet - Liquid Texture Continue Regular - Tube Feed Continue N/A - Skin care per protocol - Diet - Solid Texture Continue Regular - Shower allowing shower FUNCTIONAL STATUS: UPDATED AT WEEKLY TEAM CONFERENCE - Bladder Same accident frequency: 7-Ind - No accidents in the past 7 days - Bowel Same accident frequency: 7-Ind - No accidents in the past 7 days - Walking Same score based on distance walked: 1(<=50ft) FUNCTIONAL STATUS: - Self-Care A. Eating sup B. Grooming sup C. Bathing modA D. Dressing - Upper sup E. Dressing - Lower maxA F. Toileting modA - Sphincter Control G: Bladder control Ind H: Bowel control Ind - Transfers Control I. Bed/Chair/Wheelchair modA J. Toilet modA K. Tub/Shower modA - Locomotion L. Walk/Wheelchair (B) maxA M. Stairs ADNO - Communication N. Comprehension (B) Sheng O. Expression (B) Sheng - Social Cognition P. Social Interaction Sheng Q. Problem Solving Sheng R. Memory Sheng - Endurance Poor - Balance Poor - Safety Awareness Poor CURRENT FUNC. DEFICITS: Balance, Self-Care, Endurance, Safety Awareness, Transfers Control, Communication, Social Cognition, and Locomotion SIGNATURE PANEL: (CDT)
[2017-12-24] MEDS: MELATONIN 3 MG TABLET PO PRN (20:03)
[2017-12-24] MEDS: DOCUSATE NA/SENNA CONC 1 TAB PO SCH (20:03)
[2017-12-25] MEDS: HYDROCODONE/APAP 10/325 TAB PO PRN ×5 (03:02→19:56)
--- NOTE | 2017-12-25 03:55 | FAST ---
SHIFT START DATE/TIME: 12/24/2017 19:00 (CDT) SHIFT END DATE/TIME: 12/25/2017 07:00 (CDT) NAME BRO GRIMM DATE OF : 1945 DATE OF ADMISSION: 12/15/2017 15:20 (CDT) PHONE: AGE: 72 SSN# [id number] GENDER: Female ENCOUNTER PHYSICIAN: Dr. Joshua Melendez M.D. ADMISSION DIAGNOSIS: - Orthopaedic Disorders 08 - Pelvic Fracture (08.3) Vertebral Fx. EATING: Activity did not occur on this shift EATING - SCORE: 0-UNK GROOMING: Activity did not occur on this shift GROOMING - SCORE: 0-UNK BATHING: Activity did not occur on this shift BATHING - SCORE: 0-UNK DRESSING - UPPER BODY: Activity did not occur on this shift ARTICLES SCORE Total number of steps: 0 DRESSING - UPPER BODY - SCORE: 0-UNK DRESSING - LOWER BODY: Patient is not dressing in public clothing ARTICLES SCORE Total number of steps: 0 DRESSING - LOWER BODY - SCORE: 0-UNK TOILETING: TOILETING - STEP 1: Does the patient require assistance with toileting? Yes. TOILETING - STEP 2: Does the patient require the assistance of a helper? Yes. TOILETING - STEP 3: How much assistance does the patient require from the helper? Only supervision TOILETING - SCORE: 5-SUP BLADDER MANAGEMENT: Activity did not occur on this shift BLADDER MANAGEMENT - SCORE: 7-IND BOWEL MANAGEMENT: Activity did not occur on this shift BOWEL MANAGEMENT - SCORE: 7-IND TRANSFERS: BED, CHAIR, WHEELCHAIR: TRANSFERS: BED, CHAIR, WHEELCHAIR - STEP 1: Does the patient require assistance with bed, chair, or wheelchair transfers? Yes. TRANSFERS: BED, CHAIR, WHEELCHAIR - STEP 2: Does the patient require the assistance of a helper? Yes. TRANSFERS: BED, CHAIR, WHEELCHAIR - STEP 3: How much assistance does the patient require from the helper? Lifting of the legs TRANSFERS: BED, CHAIR, WHEELCHAIR - STEP 4: How many legs does the patient require the helper to lift? both legs TRANSFERS: BED, CHAIR, WHEELCHAIR - SCORE: 3-MOD TRANSFERS: TOILET: TRANSFERS: TOILET - STEP 1: Does the patient require assistance with toilet transfers? Yes. TRANSFERS: TOILET - STEP 2: Does the patient require the assistance of a helper? Yes. TRANSFERS: TOILET - STEP 3: How much assistance does the patient require from the helper? Only supervision, cuing, coaxing, OR he lp to set out transfer equipment or to lock brakes and/or lift foot rests TRANSFERS: TOILET - SCORE: 5-SUP TRANSFERS: SHOWER: Activity did not occur on this shift TRANSFERS: SHOWER - SCORE: 0-UNK TRANSFERS: TUB: Activity did not occur on this shift TRANSFERS: TUB - SCORE: 0-UNK LOCOMOTION: WALK: Activity did not occur on this shift LOCOMOTION: WALK - SCORE: 0-UNK LOCOMOTION: WHEELCHAIR: Activity did not occur on this shift LOCOMOTION: WHEELCHAIR - SCORE: 0-UNK COMPREHENSION: COMPREHENSION: TYPE: Both COMPREHENSION - STEP 1: Does the patient require help to understand complex and abstract ideas (such as current events, finan lesvia, discharge planning, medical issues, relationships, etc)? No. COMPREHENSION - STEP 2: Does the patient need extra time, require an assistive device (such as glasses for visual comprehensi on or a hearing aid for auditory comprehension) or does s/he have mild difficulty understanding compl ex and abstract information? Yes. COMPREHENSION - SCORE: 6-STACIE EXPRESSION EXPRESSION: TYPE: Both EXPRESSION - STEP 1: Does the patient require help expressing complex and abstract ideas (such as current events, finances , discharge planning, medical issues, relationships, etc)? No. EXPRESSION - STEP 2: Does the patient need extra time, require an assistive device (such as augmentive communication syste m or a communication board), OR does s/he have mild difficulty expressing complex and abstract ideas (including mild dysarthria or mild word-find problems)? Yes. EXPRESSION - SCORE: 6-STACIE SOCIAL INTERACTION: SOCIAL INTERACTION - STEP 1: Does the patient require a helper to interact with others in social and therapeutic situations? No. SOCIAL INTERACTION - STEP 2: Does the patient need extra time in social situations, OR does s/he interact with staff, other patien ts, and family members ONLY in structured environments, OR does s/he require medication for social in teraction? Yes, patient needs extra time SOCIAL INTERACTION - SCORE: 6-STACIE PROBLEM SOLVING: PROBLEM SOLVING - STEP 1: Does the patient need help to solve complex problems such as managing a checking account or confronti ng interpersonal problems? No. PROBLEM SOLVING - STEP 2: Does the patient require extra time to make decisions or solve problems, OR does s/he have slight dif ficulty reading, initiating, or self-correcting in unfamiliar situations? Yes, patient needs extra ti me. PROBLEM SOLVING - SCORE: 6-STACIE MEMORY: MEMORY - STEP 1: Does the patient need help to remember frequently encountered people, daily routines, and executing r equests? No. MEMORY - STEP 2: Does the patient have slight difficulty recognizing frequently encountered people, daily routines, or executing requests without the need for repetition or using self-initiated or environmental cues to remember? Yes. MEMORY - SCORE: 6-STACIE SIGNATURE PANEL: The following modified sections: Eating - Score, Grooming - Score, Bathing - Score, Dressing - Upper Body - Score, Dressing - Lower Body - Score, Toileting - Score, Bladder Management - Score, Bowel Man agement - Score, Transfers: Bed, Chair, Wheelchair - Score, Transfers: Toilet - Score, Transfers: Laurel wer - Score, Transfers: Tub - Score, Locomotion: Walk - Score, Locomotion: Wheelchair - Score, Compre hension - Score, Expression - Score, Social Interaction - Score, Problem Solving - Score, Memory - Sc ore were [electronically] signed by Constanza Vides on FriDec 25 2017 03:53:23 GMT-0500 (Central Day light Time)
[2017-12-25] MEDS: ATENOLOL 50 MG TAB PO SCH (05:31)
[2017-12-25 06:38] LABS: Absolute Lymphocytes (CBC) 1.5 K/uL (0.7-4.9); Absolute Monocytes 0.7 K/uL (0.1-1.3); Absolute Neutrophil 3.8 K/uL (1.8-8.0); Eosinophils % 2.7 % (0-4.4); Hematocrit 34.3 % (36.0-45.0); Lymphocytes % 24.8 % (15.3-44.8); MCH 28.9 pg (27.0-35.0); MCV 83.9 fL (80-100); Monocytes % 10.6 % (3.3-12.3); RBC Red Blood Cell Count 4.08 M/uL (3.86-4.86)
[2017-12-25 06:54] LABS: Albumin 3.1 g/dL (3.4-5.0); BUN Blood Urea Nitrogen 12 mg/dL (7-18); Bicarbonate 28 mmol/L (21-32); Glucose Level 80 mg/dL (74-106); Magnesium 2.3 mg/dL (1.8-2.4); Potassium 4.2 mmol/L (3.5-5.1); Prealbumin 17.9 mg/dL (20-40); Sodium Level 139 mmol/L (136-145)
[2017-12-25] MEDS: PROMOD 30 ML DOSE PO SCH ×2 (08:00→19:56)
[2017-12-25] MEDS: LISINOPRIL 5 MG TAB PO SCH (08:00)
[2017-12-25] MEDS: ENSURE ENLIVE 237 ML CAN PO SCH ×2 (08:00→19:56)
[2017-12-25] MEDS: LIDOCAINE 5% PATCH TOP SCH (08:01)
[2017-12-25] MEDS: FE SULF/FA/VIT B COMP & C TAB PO SCH (08:02)
[2017-12-25] MEDS: MAGNESIUM OXIDE 400 MG TAB PO SCH ×2 (08:02→19:56)
[2017-12-25] MEDS: FERROUS SULFATE 325 MG TAB PO SCH (08:02)
[2017-12-25] MEDS: CRANBERRY FRUIT EXTRACT 200 MG CAP PO SCH ×2 (08:05→19:56)
[2017-12-25] MEDS: DULOXETINE 20 MG CAP PO SCH (08:06)
[2017-12-25] MEDS: TRAMADOL HCL 50 MG TAB PO PRN ×3 (08:06→17:10)
[2017-12-25] MEDS: APIXABAN 2.5 MG TABLET PO SCH ×2 (08:06→19:56)
[2017-12-25] MEDS: DOCUSATE NA 100 MG CAP PO SCH ×2 (08:06→19:56)
[2017-12-25] MEDS: PANTOPRAZOLE 40MG TABLET PO SCH (08:06)
[2017-12-25] MEDS: ASPIRIN 81 MG CHEWABLE TABLET PO SCH (08:06)
[2017-12-25] MEDS: POTASSIUM CL SA 10 MEQ TAB PO SCH (08:06)
--- NOTE | 2017-12-25 13:54 | FAST ---
SHIFT START DATE/TIME: 12/25/2017 07:00 (CDT) SHIFT END DATE/TIME: 12/25/2017 19:00 (CDT) NAME BRO GRIMM DATE OF : 1945 DATE OF ADMISSION: 12/15/2017 15:20 (CDT) PHONE: AGE: 72 SSN# [id number] GENDER: Female ENCOUNTER PHYSICIAN: Dr. Joshua Melendez M.D. ADMISSION DIAGNOSIS: - Orthopaedic Disorders 08 - Pelvic Fracture (08.3) Vertebral Fx. EATING: EATING - STEP 1: Does the patient require assistance when eating? Yes. EATING - STEP 2: Does the patient require the assistance of a helper? No, patient only requires an assistive device, O R s/he takes more than reasonable time to eat, OR there is a safety concern, OR s/he requires modifie d food consistency EATING - SCORE: 6-STACIE GROOMING: Comb/brush hair Oral care Wash, rinse, and dry face Wash, rinse, and dry hands GROOMING - STEP 1: Does the patient require assistance when grooming? Yes. GROOMING - STEP 2: Does the patient require the assistance of a helper? No. The patient only requires an assistive devic e, OR takes more than reasonable time to groom, OR there is a concern for safety as the patient groom s GROOMING - SCORE: 6-STACIE BATHING: Activity did not occur on this shift BATHING - SCORE: 0-UNK DRESSING - UPPER BODY: T-shirt/pullover shirt (four steps) ARTICLES SCORE Total number of steps: 4 DRESSING - UPPER BODY - STEP 1: Does the patient require help when dressing above the waist? Yes. DRESSING - UPPER BODY - STEP 2: Does the patient require the assistance of a helper? No. Patient only requires an assistive device, s uch as a button hook, velcro, or auto repair technician. OR s/he takes more than reasonable time as s/he dresses the upper body. OR there is a concern for safety when s/he dresses the upper body DRESSING - UPPER BODY - SCORE: 6-STACIE DRESSING - LOWER BODY: Elastic waist pants (three steps) Slip-on shoe - Left foot (one step) Slip-on shoe - Right foot (one step) Underwear (three steps) ARTICLES SCORE Total number of steps: 8 DRESSING - LOWER BODY - STEP 1: Does the patient require help when dressing below the waist? Yes. DRESSING - LOWER BODY - STEP 2: Does the patient require the assistance of a helper? No. Patient requires an assistive device such as a auto repair technician. OR s/he takes more than reasonable time as s/he dresses the lower body, OR there is a con cern for safety when s/he dresses the lower body DRESSING - LOWER BODY - SCORE: 6-STACIE TOILETING: TOILETING - STEP 1: Does the patient require assistance with toileting? Yes. TOILETING - STEP 2: Does the patient require the assistance of a helper? Yes. TOILETING - STEP 3: How much assistance does the patient require from the helper? Only supervision TOILETING - SCORE: 5-SUP BLADDER MANAGEMENT: BLADDER MANAGEMENT - STEP 1: Does the patient control the bladder completely and intentionally without equipment or devices or med ications, and is always continent? No. BLADDER MANAGEMENT - STEP 2: Does the patient require the assistance of a helper? No, patient requires and independently uses an a ssistive device, such as a urinal, bedpan, bedside commode, catheter, absorbent pad, or collecting de vice BLADDER MANAGEMENT - SCORE: 6-TSACIE BLADDER MANAGEMENT - FREQUENCY OF ACCIDENTS: BLADDER MANAGEMENT(FA) - STEP 1: How many accidents has the patient had during the current shift? 0 BOWEL MANAGEMENT: Activity did not occur on this shift BOWEL MANAGEMENT - SCORE: 7-IND BOWEL MANAGEMENT - FREQUENCY OF ACCIDENTS: BOWEL MANAGEMENT(FA) - STEP 1: How many accidents has the patient had during the current shift? 0 TRANSFERS: BED, CHAIR, WHEELCHAIR: TRANSFERS: BED, CHAIR, WHEELCHAIR - STEP 1: Does the patient require assistance with bed, chair, or wheelchair transfers? Yes. TRANSFERS: BED, CHAIR, WHEELCHAIR - STEP 2: Does the patient require the assistance of a helper? No. Patient only requires an assistive device fo r bed, chair, wheelchair transfers such as a sliding board, grab bar, or brace, OR s/he takes more th an reasonable time, OR there is a safety concern when s/he performs the transfers TRANSFERS: BED, CHAIR, WHEELCHAIR - SCORE: 6-STACIE TRANSFERS: TOILET: TRANSFERS: TOILET - STEP 1: Does the patient require assistance with toilet transfers? Yes. TRANSFERS: TOILET - STEP 2: Does the patient require the assistance of a helper? No. Patient only requires an assistive device santos ch as a grab bar or special seat, OR s/he takes more than reasonable time to perform toilet transfers , OR there is a safety concern when s/he performs toilet transfers. TRANSFERS: TOILET - SCORE: 6-STACIE TRANSFERS: SHOWER: Activity did not occur on this shift TRANSFERS: SHOWER - SCORE: 0-UNK TRANSFERS: TUB: Activity did not occur on this shift TRANSFERS: TUB - SCORE: 0-UNK LOCOMOTION: WALK: Activity did not occur on this shift LOCOMOTION: WALK - SCORE: 0-UNK LOCOMOTION: WHEELCHAIR: LOCOMOTION: WHEELCHAIR - STEP 1: Does the patient need help to go 150 feet in a wheelchair? Yes. LOCOMOTION: WHEELCHAIR - STEP 2: How much assistance does the patient need from the helper? Only incidental help such as around corner s or over thresholds LOCOMOTION: WHEELCHAIR - SCORE: 4-MIN COMPREHENSION: COMPREHENSION: TYPE: Both COMPREHENSION - STEP 1: Does the patient require help to understand complex and abstract ideas (such as current events, finan lesvia, discharge planning, medical issues, relationships, etc)? No. COMPREHENSION - STEP 2: Does the patient need extra time, require an assistive device (such as glasses for visual comprehensi on or a hearing aid for auditory comprehension) or does s/he have mild difficulty understanding compl ex and abstract information? Yes. COMPREHENSION - SCORE: 6-STACIE EXPRESSION EXPRESSION: TYPE: Both EXPRESSION - STEP 1: Does the patient require help expressing complex and abstract ideas (such as current events, finances , discharge planning, medical issues, relationships, etc)? No. EXPRESSION - STEP 2: Does the patient need extra time, require an assistive device (such as augmentive communication syste m or a communication board), OR does s/he have mild difficulty expressing complex and abstract ideas (including mild dysarthria or mild word-find problems)? Yes. EXPRESSION - SCORE: 6-STACIE SOCIAL INTERACTION: SOCIAL INTERACTION - STEP 1: Does the patient require a helper to interact with others in social and therapeutic situations? No. SOCIAL INTERACTION - STEP 2: Does the patient need extra time in social situations, OR does s/he interact with staff, other patien ts, and family members ONLY in structured environments, OR does s/he require medication for social in teraction? Yes, patient needs extra time SOCIAL INTERACTION - SCORE: 6-STACIE PROBLEM SOLVING: PROBLEM SOLVING - STEP 1: Does the patient need help to solve complex problems such as managing a checking account or confronti ng interpersonal problems? No. PROBLEM SOLVING - STEP 2: Does the patient require extra time to make decisions or solve problems, OR does s/he have slight dif ficulty reading, initiating, or self-correcting in unfamiliar situations? Yes, patient needs extra ti me. PROBLEM SOLVING - SCORE: 6-STACIE MEMORY: MEMORY - STEP 1: Does the patient need help to remember frequently encountered people, daily routines, and executing r equests? No. MEMORY - STEP 2: Does the patient have slight difficulty recognizing frequently encountered people, daily routines, or executing requests without the need for repetition or using self-initiated or environmental cues to remember? Yes. MEMORY - SCORE: 6-STACIE SIGNATURE PANEL: The following modified sections: Eating - Score, Grooming - Score, Bathing - Score, Dressing - Upper Body - Score, Dressing - Lower Body - Score, Toileting - Score, Bladder Management - Score, Bowel Man agement - Score, Transfers: Bed, Chair, Wheelchair - Score, Transfers: Toilet - Score, Transfers: Laurel wer - Score, Transfers: Tub - Score, Locomotion: Walk - Score, Locomotion: Wheelchair - Score, Compre hension - Score, Expression - Score, Social Interaction - Score, Problem Solving - Score, Memory - Sc ore were [electronically] signed by Milagro Yoo C.N.A. on FriDec 25 2017 13:53:20 T-0500 (Centra l Daylight Time)
--- NOTE | 2017-12-25 14:34 | FAST ---
ENCOUNTER DATE AND TIME: 12/25/2017 08:00 (CDT) NAME BRO GRIMM DATE OF : 1945 DATE OF ADMISSION: 12/15/2017 15:20 (CDT) PHONE: AGE: 72 SSN# [id number] GENDER: Female ENCOUNTER PHYSICIAN: Dr. Joshua Melendez M.D. ADMISSION DIAGNOSIS: - Orthopaedic Disorders 08 - Pelvic Fracture (08.3) Vertebral Fx. EATING: Activity did not occur on this shift EATING - SCORE: 0-UNK GROOMING: Activity did not occur on this shift GROOMING - SCORE: 0-UNK BATHING: Activity did not occur on this shift BATHING - SCORE: 0-UNK DRESSING - UPPER BODY: Activity did not occur on this shift Patient is not dressing in public clothing ARTICLES SCORE Total number of steps: 0 DRESSING - UPPER BODY - SCORE: 0-UNK DRESSING - LOWER BODY: Activity did not occur on this shift Patient is not dressing in public clothing ARTICLES SCORE Total number of steps: 0 DRESSING - LOWER BODY - SCORE: 0-UNK TOILETING: Activity did not occur on this shift TOILETING - SCORE: 0-UNK BLADDER MANAGEMENT: Activity did not occur on this shift BLADDER MANAGEMENT - SCORE: 7-IND BOWEL MANAGEMENT: Activity did not occur on this shift BOWEL MANAGEMENT - SCORE: 7-IND TRANSFERS: BED, CHAIR, WHEELCHAIR: TRANSFERS: BED, CHAIR, WHEELCHAIR - STEP 1: Does the patient require assistance with bed, chair, or wheelchair transfers? Yes. TRANSFERS: BED, CHAIR, WHEELCHAIR - STEP 2: Does the patient require the assistance of a helper? Yes. TRANSFERS: BED, CHAIR, WHEELCHAIR - STEP 3: How much assistance does the patient require from the helper? Only supervision TRANSFERS: BED, CHAIR, WHEELCHAIR - SCORE: 5-SUP TRANSFERS: TOILET: Activity did not occur on this shift TRANSFERS: TOILET - SCORE: 0-UNK TRANSFERS: SHOWER: Activity did not occur on this shift TRANSFERS: SHOWER - SCORE: 0-UNK TRANSFERS: TUB: Activity did not occur on this shift TRANSFERS: TUB - SCORE: 0-UNK LOCOMOTION: WALK: LOCOMOTION: WALK - STEP 1: Does the patient need help to walk 150 feet? Yes. LOCOMOTION: WALK - STEP 2: How much assistance does the patient require to walk a minimum of 150 feet? Only supervision, cuing, or coaxing LOCOMOTION: WALK - SCORE: 5-SUP LOCOMOTION: WHEELCHAIR: Activity did not occur on this shift LOCOMOTION: WHEELCHAIR - SCORE: 0-UNK LOCOMOTION: STAIRS: LOCOMOTION: STAIRS - STEP 1: Does the patient need help to go up and down 12 to 14 stairs? Yes. LOCOMOTION: STAIRS - STEP 2: How much assistance does the patient need from the helper to go a minimum of 12 to 14 stairs? The pat ient goes less than 12 to 14 stairs - but more than 4 to 6 stairs LOCOMOTION: STAIRS - SCORE: 2-MAX COMPREHENSION: COMPREHENSION - SCORE: 0-UNK EXPRESSION EXPRESSION - SCORE: 0-UNK SOCIAL INTERACTION: SOCIAL INTERACTION - SCORE: 0-UNK PROBLEM SOLVING: PROBLEM SOLVING - SCORE: 0-UNK MEMORY: MEMORY - SCORE: 0-UNK SIGNATURE PANEL: The following modified sections: Transfers: Bed, Chair, Wheelchair - Score, Transfers: Toilet - Score , Locomotion: Walk - Score, Locomotion: Wheelchair - Score, Locomotion: Stairs - Score were [electron gerri] signed by Karl Olivares, PT on FriDec 25 2017 14:33:37 T-0500 (Central Daylight Time)
--- NOTE | 2017-12-25 18:47 | R.PN ---
ENCOUNTER DATE AND TIME: 12/25/2017 18:44 (CDT) NAME BRO GRIMM DATE OF : 1945 DATE OF ADMISSION: 12/15/2017 15:20 (CDT) Vertebral FxCHIEF COMPLAINT: Pubic and vertebral fracture SUBJECTIVE: Pt denied any Shortness of Breath. Pt denied any depression. Ambulated 750' with standby assistance with a rolling walker. Up and down 5 steps with contact guard assistance. Mobilized 250' using a wheelchair with modified independence. Therapeutic exercised done with good performance. VITAL SIGNS Temperature: 98.9 F SBP/DBP: 119/59 Pulse: 68 Resp: 16 MEDICATION ALLERGIES: No Known Drug Allergies (NKDA) ENVIRONMENTAL ALLERGIES: - Substance Allergies None Known - Other Allergies None Known NURSING: - Shower allowing shower - Skin care per protocol ACTIVITIES OOB only with supervision THERAPIES: - Occupational Therapy Evaluate and Treat. - Physical Therapy Evaluate and Treat. PHYSICAL EXAM - Gen Alert and awake Lying in bed No apparent distress Oriented to: person, time, and place - Skin No skin breakdown. No abnormalities - Eyes No abnormalities - ENMT No abnormalities - Neck No abnormalities - CVS RRR - Chest Clear - Abd Soft - GI Non distended Deferred - No abnormalities - Ext No significant edema - MSK 4+/5 weakness in both lower extremities. - Neuro 4/5 strength bilaterally lower extremities. - Psych No abnormalities ASSESSMENT: Pt. is a 72 yo Right-handed white female.On 12/09/2017 she was admitted to [facility] with diagnosis Vertebral Fx.Her impairment category is Orthopaedic Disorders 08 - Pelvic Frac ture (08.3).Pre-morbidly, Pt. was independent/mod-I in Self-Care, Sphincter Control, Transfers Contro l, Communication, Social Cognition, and Locomotion; and she had good Sphincter Control.Currently, she has deficits of Balance, Self-Care, Endurance, Safety Awareness, Transfers Control, Communication, S ocial Cognition, and Locomotion.Pt. is now referred to [facility] for acute in -patient rehabilitation in order to maximize patient's functional independence in activities of daily living, strength, ROM, and mobility.- Rehab Goal Patient has realistic goal of being discharged at assistance level 6-Holly to reside at Home with Fam юлия/Relatives. MDM/PLAN: - Physical Therapy Decreased range of motion - to improve, our physical therapists will perform initial evaluation of p t's status upon admission and devise an individualized program for increasing patient's Range of [place] on. Gait dysfunction - to improve, our physical therapists will perform initial evaluation of pt's statu s upon admission and devise an individualized program for Gait Training, and Wheel Chair mobility Inability to transfer - to improve, our physical therapists will perform initial evaluation of pt's status upon admission and devise an individualized program for Bed mobility Need for home safety evaluation - to improve, our physical therapists will perform initial evaluatio n of pt's status upon admission and devise an individualized program for Home Evaluation Need in caregiver upon discharge - to improve, our physical therapists will perform initial evaluati on of pt's status upon admission and devise an individualized program for Caregiver Training Edema - to improve, our physical therapists will perform initial evaluation of pt's status upon admi ssion and devise an individualized program for Elevation Training, and Lymphedema Therapy New precaution - to improve, our physical therapists will perform initial evaluation of pt's status upon admission and devise an individualized program for Patient precaution education Poor balance - to improve, our physical therapists will perform initial evaluation of pt's status up on admission and devise an individualized program for Balance Training Poor endurance - to improve, our physical therapists will perform initial evaluation of pt's status upon admission and devise an individualized program for Endurance Training Weakness - to improve, our physical therapists will perform initial evaluation of pt's status upon a dmission and devise an individualized program for Aquatic Therapy, Neuromuscular Reeducation, and Str engthening Achieving independence - to improve, our physical therapists will perform initial evaluation of pt's status upon admission and devise an individualized program for Community Reintegration Activities - Occupational Therapy ADL deficits - to improve, our occupation therapists will perform initial evaluation of pt's status upon admission and devise an individualized program for Bathing, Bed mobility, Community Reintegratio n, Cooking, Dressing, Eating, Fine Motor Skills, Grooming, Homemaking, Kitchen Mobility, Laundry, Pat ient Education, Safety Awareness, Splinting - Positioning, Transfers(Toilet, Tub, Shower), and Wheel Chair Management Cognitive deficits - to improve, our occupation therapists will perform initial evaluation of pt's s tatus upon admission and devise an individualized program for Cognition - orientation Need for resident care manager rn - to improve, our occupation therapists will perform initial evaluation of pt's status upon admission and devise an individualized program for Caregiver Training Weakness - to improve, our occupation therapists will perform initial evaluation of pt's status upon admission and devise an individualized program for Aquatic Therapy, Balance, Endurance, UE ROM, and UE strengthening - Diet Type Continue Regular - Diet - Liquid Texture Continue Regular - Tube Feed Continue N/A - Skin care per protocol - Diet - Solid Texture Continue Regular - Shower allowing shower FUNCTIONAL STATUS: UPDATED AT WEEKLY TEAM CONFERENCE - Bladder Same accident frequency: 7-Ind - No accidents in the past 7 days - Bowel Same accident frequency: 7-Ind - No accidents in the past 7 days - Walking Same score based on distance walked: 1(<=50ft) FUNCTIONAL STATUS: - Self-Care A. Eating sup B. Grooming sup C. Bathing modA D. Dressing - Upper sup E. Dressing - Lower maxA F. Toileting modA - Sphincter Control G: Bladder control Ind H: Bowel control Ind - Transfers Control I. Bed/Chair/Wheelchair modA J. Toilet modA K. Tub/Shower modA - Locomotion L. Walk/Wheelchair (B) maxA M. Stairs ADNO - Communication N. Comprehension (B) Sheng O. Expression (B) Sheng - Social Cognition P. Social Interaction Sheng Q. Problem Solving Sheng R. Memory Sheng - Endurance Poor - Balance Poor - Safety Awareness Poor CURRENT FUNC. DEFICITS: Balance, Self-Care, Endurance, Safety Awareness, Transfers Control, Communication, Social Cognition, and Locomotion SIGNATURE PANEL: (CDT)
[2017-12-25] MEDS: MELATONIN 3 MG TABLET PO PRN (19:56)
[2017-12-25] MEDS: DOCUSATE NA/SENNA CONC 1 TAB PO SCH (20:00)
[2017-12-26] MEDS: HYDROCODONE/APAP 10/325 TAB PO PRN ×5 (01:06→20:26)
--- NOTE | 2017-12-26 02:20 | FAST ---
SHIFT START DATE/TIME: 12/25/2017 19:00 (CDT) SHIFT END DATE/TIME: 12/26/2017 07:00 (CDT) NAME BRO GRIMM DATE OF : 1945 DATE OF ADMISSION: 12/15/2017 15:20 (CDT) PHONE: AGE: 72 N# [id number] GENDER: Female ENCOUNTER PHYSICIAN: Dr. Joshua Melendez M.D. ADMISSION DIAGNOSIS: - Orthopaedic Disorders 08 - Pelvic Fracture (08.3) Vertebral Fx. EATING: Activity did not occur on this shift EATING - SCORE: 0-UNK GROOMING: Wash, rinse, and dry hands GROOMING - STEP 1: Does the patient require assistance when grooming? Yes. GROOMING - STEP 2: Does the patient require the assistance of a helper? Yes. GROOMING - STEP 3: How much assistance does the patient require from the helper? Only prior equipment preparation/set up from the helper GROOMING - SCORE: 5-SUP BATHING: Activity did not occur on this shift BATHING - SCORE: 0-UNK DRESSING - UPPER BODY: Patient is not dressing in public clothing ARTICLES SCORE Total number of steps: 0 DRESSING - UPPER BODY - SCORE: 0-UNK DRESSING - LOWER BODY: Patient is not dressing in public clothing ARTICLES SCORE Total number of steps: 0 DRESSING - LOWER BODY - SCORE: 0-UNK TOILETING: TOILETING - STEP 1: Does the patient require assistance with toileting? Yes. TOILETING - STEP 2: Does the patient require the assistance of a helper? Yes. TOILETING - STEP 3: How much assistance does the patient require from the helper? Hands-on assistance from the helper TOILETING - STEP 4: Of the 3 tasks: 1) Adjusting clothing prior to use, 2) Cleansing of perineal area, 3) Adjusting clot vinicio after use; How many tasks does the patient perform WITHOUT assistance of the helper? Three tasks with steadying assistance from the helper TOILETING - SCORE: 4-MIN BLADDER MANAGEMENT: BLADDER MANAGEMENT - STEP 1: Does the patient control the bladder completely and intentionally without equipment or devices or med ications, and is always continent? No. BLADDER MANAGEMENT - STEP 2: Does the patient require the assistance of a helper? Yes. BLADDER MANAGEMENT - STEP 3: How much assistance does the patient require from the helper? Only set-up of equipment - such as plac ing it within reach of the patient or emptying a device - to maintain either satisfactory voiding pat tern or managing an external device, such as an absorbent pad, ileal device, or catheter BLADDER MANAGEMENT - SCORE: 5-SUP BOWEL MANAGEMENT: Activity did not occur on this shift BOWEL MANAGEMENT - SCORE: 7-IND TRANSFERS: BED, CHAIR, WHEELCHAIR: TRANSFERS: BED, CHAIR, WHEELCHAIR - STEP 1: Does the patient require assistance with bed, chair, or wheelchair transfers? Yes. TRANSFERS: BED, CHAIR, WHEELCHAIR - STEP 2: Does the patient require the assistance of a helper? Yes. TRANSFERS: BED, CHAIR, WHEELCHAIR - STEP 3: How much assistance does the patient require from the helper? Lifting of the legs TRANSFERS: BED, CHAIR, WHEELCHAIR - STEP 4: How many legs does the patient require the helper to lift? both legs TRANSFERS: BED, CHAIR, WHEELCHAIR - SCORE: 3-MOD TRANSFERS: TOILET: TRANSFERS: TOILET - STEP 1: Does the patient require assistance with toilet transfers? Yes. TRANSFERS: TOILET - STEP 2: Does the patient require the assistance of a helper? Yes. TRANSFERS: TOILET - STEP 3: How much assistance does the patient require from the helper? Patient performs half or more of the tr ansferring tasks TRANSFERS: TOILET - STEP 4: Does the patient need only incidental help such as contact guard or steadying during toilet transfer? Yes. TRANSFERS: TOILET - SCORE: 4-MIN TRANSFERS: SHOWER: Activity did not occur on this shift TRANSFERS: SHOWER - SCORE: 0-UNK TRANSFERS: TUB: Activity did not occur on this shift TRANSFERS: TUB - SCORE: 0-UNK LOCOMOTION: WALK: Activity did not occur on this shift LOCOMOTION: WALK - SCORE: 0-UNK LOCOMOTION: WHEELCHAIR: Activity did not occur on this shift LOCOMOTION: WHEELCHAIR - SCORE: 0-UNK COMPREHENSION: COMPREHENSION: TYPE: Both COMPREHENSION - STEP 1: Does the patient require help to understand complex and abstract ideas (such as current events, finan lesvia, discharge planning, medical issues, relationships, etc)? Yes. COMPREHENSION - STEP 2: Does the patient require help to understand questions or statements about basic needs or ideas (such as hunger, thirst, sleep, safety, daily schedule, room location, or discomfort) half or more of the t cyrus? No. COMPREHENSION - STEP 3: How often does the patient need help to understand directions and conversation about basic needs? 10% - 24% of the time COMPREHENSION - SCORE: 4-MIN EXPRESSION EXPRESSION: TYPE: Both EXPRESSION - STEP 1: Does the patient require help expressing complex and abstract ideas (such as current events, finances , discharge planning, medical issues, relationships, etc)? No. EXPRESSION - STEP 2: Does the patient need extra time, require an assistive device (such as augmentive communication syste m or a communication board), OR does s/he have mild difficulty expressing complex and abstract ideas (including mild dysarthria or mild word-find problems)? Yes. EXPRESSION - SCORE: 6-STACIE SOCIAL INTERACTION: SOCIAL INTERACTION - STEP 1: Does the patient require a helper to interact with others in social and therapeutic situations? No. SOCIAL INTERACTION - STEP 2: Does the patient need extra time in social situations, OR does s/he interact with staff, other patien ts, and family members ONLY in structured environments, OR does s/he require medication for social in teraction? Yes, patient needs extra time SOCIAL INTERACTION - SCORE: 6-STACIE PROBLEM SOLVING: PROBLEM SOLVING - STEP 1: Does the patient need help to solve complex problems such as managing a checking account or confronti ng interpersonal problems? Yes. PROBLEM SOLVING - STEP 2: Does the patient solve basic routine problems half or more of the time? Yes. PROBLEM SOLVING - STEP 3: How often does the patient need help to solve basic routine problems? 10%-24% of the time PROBLEM SOLVING - SCORE: 4-MIN MEMORY: MEMORY - STEP 1: Does the patient need help to remember frequently encountered people, daily routines, and executing r equests? No. MEMORY - STEP 2: Does the patient have slight difficulty recognizing frequently encountered people, daily routines, or executing requests without the need for repetition or using self-initiated or environmental cues to remember? Yes. MEMORY - SCORE: 6-STACIE SIGNATURE PANEL: The following modified sections: Eating - Score, Grooming - Score, Dressing - Upper Body - Score, Axel ssing - Lower Body - Score, Toileting - Score, Bladder Management - Score, Bowel Management - Score, Transfers: Bed, Chair, Wheelchair - Score, Transfers: Toilet - Score, Transfers: Shower - Score, Parmar sfers: Tub - Score, Locomotion: Walk - Score, Locomotion: Wheelchair - Score, Comprehension - Score, Expression - Score, Social Interaction - Score, Problem Solving - Score, Memory - Score were [electro nically] signed by Eli Escalera CNA on FriDec 26 2017 02:19:31 T-0500 (Central Daylight Time)
[2017-12-26] MEDS: ATENOLOL 50 MG TAB PO SCH (05:05)
[2017-12-26] MEDS: ENSURE ENLIVE 237 ML CAN PO SCH ×2 (08:00→20:00)
[2017-12-26] MEDS: PROMOD 30 ML DOSE PO SCH ×2 (08:00→20:00)
[2017-12-26] MEDS: DULOXETINE 20 MG CAP PO SCH (08:27)
[2017-12-26] MEDS: MAGNESIUM OXIDE 400 MG TAB PO SCH ×2 (08:28→20:21)
[2017-12-26] MEDS: FE SULF/FA/VIT B COMP & C TAB PO SCH (08:28)
[2017-12-26] MEDS: APIXABAN 2.5 MG TABLET PO SCH ×2 (08:28→20:21)
[2017-12-26] MEDS: DOCUSATE NA 100 MG CAP PO SCH ×2 (08:28→20:21)
[2017-12-26] MEDS: CRANBERRY FRUIT EXTRACT 200 MG CAP PO SCH ×2 (08:28→20:27)
[2017-12-26] MEDS: PANTOPRAZOLE 40MG TABLET PO SCH (08:28)
[2017-12-26] MEDS: ASPIRIN 81 MG CHEWABLE TABLET PO SCH (08:28)
[2017-12-26] MEDS: POTASSIUM CL SA 10 MEQ TAB PO SCH (08:28)
[2017-12-26] MEDS: FERROUS SULFATE 325 MG TAB PO SCH (08:28)
[2017-12-26] MEDS: LISINOPRIL 5 MG TAB PO SCH (08:29)
[2017-12-26] MEDS: LIDOCAINE 5% PATCH TOP SCH (08:30)
--- NOTE | 2017-12-26 09:43 | P.RH.PN ---
Estimated Length of Stay: 13 Expected Discharge Date: 12/27/17 Discharge Disposition Plan: Home Family Support: Yes Shelter Goal: Mobility, Transfers, Self Care Vital Signs: Last Vital Signs Temp 96.6 F L 12/26/17 06:15 Pulse 64 12/26/17 08:29 Resp 18 12/26/17 06:15 BP 119/60 12/26/17 08:29 Pulse Ox 97 12/26/17 06:15 Laboratory: Laboratory Last Values WBC 6.2 K/uL (4.3-10.9) 12/25/17 05:36 RBC 4.08 M/uL (3.86-4.86) 12/25/17 05:36 Hgb 11.8 g/dL (12.0-15.0) L 12/25/17 05:36 Hct 34.3 % (36.0-45.0) L 12/25/17 05:36 MCV 83.9 fL (80-100) 12/25/17 05:36 MCH 28.9 pg (27.0-35.0) 12/25/17 05:36 MCHC 34.5 g/dL (32.0-36.0) 12/25/17 05:36 RDW 14.6 % (12.1-15.2) 12/25/17 05:36 Plt Count 338 K/uL (152-406) D 12/25/17 05:36 MPV 9.0 fL (7.6-11.3) 12/25/17 05:36 Neutrophils % 60.9 % (41.7-73.7) 12/25/17 05:36 Lymphocytes % 24.8 % (15.3-44.8) 12/25/17 05:36 Monocytes % 10.6 % (3.3-12.3) 12/25/17 05:36 Eosinophils % 2.7 % (0-4.4) 12/25/17 05:36 Basophils % 1.0 % (0-1.3) 12/25/17 05:36 Absolute Neutrophils 3.8 K/uL (1.8-8.0) 12/25/17 05:36 Absolute Lymphocytes 1.5 K/uL (0.7-4.9) 12/25/17 05:36 Absolute Monocytes 0.7 K/uL (0.1-1.3) 12/25/17 05:36 Absolute Eosinophils 0.2 K/uL (0-0.5) 12/25/17 05:36 Absolute Basophils 0.1 K/uL (0-0.5) 12/25/17 05:36 Sodium 139 mmol/L (136-145) 12/25/17 05:36 Potassium 4.2 mmol/L (3.5-5.1) 12/25/17 05:36 Chloride 105 mmol/L (98-107) 12/25/17 05:36 Carbon Dioxide 28 mmol/L (21-32) 12/25/17 05:36 BUN 12 mg/dL (7-18) 12/25/17 05:36 Creatinine 0.60 mg/dL (0.55-1.3) 12/25/17 05:36 Estimated GFR > 90 mL/min (=/>90) 12/25/17 05:36 Glucose 80 mg/dL (74-106) 12/25/17 05:36 Calcium 9.0 mg/dL (8.5-10.1) 12/25/17 05:36 Magnesium 2.3 mg/dL (1.8-2.4) 12/25/17 05:36 Albumin 3.1 g/dL (3.4-5.0) L 12/25/17 05:36 Prealbumin 17.9 mg/dL (20-40) L 12/25/17 05:36 Urine Color Yellow 12/15/17 20:10 Urine Appearance Clear 12/15/17 20:10 Urine pH 8.0 (5.0-7.0) H 12/15/17 20:10 Ur Specific [place] <=1.005 (1.005-1.030) 12/15/17 20:10 Urine Ketones Negative (NEG) 12/15/17 20:10 Urine Blood Negative (NEG) 12/15/17 20:10 Urine Nitrite Negative (NEG) 12/15/17 20:10 Urine Bilirubin Negative (NEG) 12/15/17 20:10 Urine Urobilinogen 1.0 mg/dL (0.2-1.0) 12/15/17 20:10 Ur Leukocyte Esterase Negative (NEG) 12/15/17 20:10 Urine RBC None seen /HPF (NONE SEEN) 12/15/17 20:10 Urine WBC <5 /HPF (<5) 12/15/17 20:10 Ur Squamous Epith Cells TOBACCO SIEVE OPERATOR 12/15/17 20:10 Ur Urothelial Cells <5 /HPF (NONE SEEN) 12/15/17 20:10 Urine Bacteria <20 /HPF (<20) 12/15/17 20:10 Urine Culture Reflexed Not needed 12/15/17 20:10 Urine Glucose Negative (NEG) 12/15/17 20:10 Urine Total Protein Negative (NEG) 12/15/17 20:10 Weight: 131 lb 9.6 oz Wound Present: No Closed Surgical Incision Present: No Negative Pressure Wound Therapy Present: No Physician Update: She is doing well with physical and occupational along with speech therapy. She still has moderate pain at her pubic ramus fracture. She will be discharged in AM with home health. Pain Issues: [place] 10/325mg Q4H PRN. Lidoderm patch Daily. Tramadol 50mg Q4H PRN Functional Improvement: pt has demonstrated good progress throughout the duration of therapy. pt has met many functional goals. pt requires training for car transfers. Functional Improvement Occupational Therapy: pt can benifit with therapy services to increase pt's endurance and static standing balance for adl tasks. cont to educate pt on using A/E for LB dressing. Cont to increase pt's UB strength. Speech Therapy Update: Pateint responding well to treatment and making fair gains. She is at Supervision level in all areas including comprehension, verbal exoression and cognition. She requires extra time to process information and exhibits some tangential speech. 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 Please see the Rehabilitation Signature page for all necessary signatures.
--- NOTE | 2017-12-26 12:54 | FAST ---
ENCOUNTER DATE AND TIME: 12/26/2017 08:00 (CDT) NAME BRO GRIMM DATE OF : 1945 DATE OF ADMISSION: 12/15/2017 15:20 (CDT) PHONE: AGE: 72 SSN# [id number] GENDER: Female ENCOUNTER PHYSICIAN: Dr. Joshua Melendez M.D. ADMISSION DIAGNOSIS: - Orthopaedic Disorders 08 - Pelvic Fracture (08.3) Vertebral Fx. EATING: Activity did not occur on this shift EATING - SCORE: 0-UNK GROOMING: Comb/brush hair Wash, rinse, and dry face Wash, rinse, and dry hands GROOMING - STEP 1: Does the patient require assistance when grooming? No. GROOMING - SCORE: 7-IND BATHING: Abdomen Buttocks Chest Left arm Left lower leg and foot Left upper leg Perineal area Right arm Right lower leg and foot Right upper leg BATHING - STEP 1: Does the patient require assistance when bathing? Yes. BATHING - STEP 2: Does the patient require the assistance of a helper? No. The patient only requires an assistive devic e such as a bath jourdan, OR the patient takes more than reasonable time to bathe, OR there is a concern for safety such as regulating water temperature as the patient bathes. BATHING - SCORE: 6-STACIE DRESSING - UPPER BODY: Button down shirt or blouse - NOT tucked in (four steps) T-shirt/pullover shirt (four steps) ARTICLES SCORE Total number of steps: 8 DRESSING - UPPER BODY - STEP 1: Does the patient require help when dressing above the waist? No. DRESSING - UPPER BODY - SCORE: 7-IND DRESSING - LOWER BODY: Elastic waist pants (three steps) Slip-on shoe - Left foot (one step) Slip-on shoe - Right foot (one step) Sock - Left foot (one step) Sock - Right foot (one step) Underwear (three steps) ARTICLES SCORE Total number of steps: 10 DRESSING - LOWER BODY - STEP 1: Does the patient require help when dressing below the waist? Yes. DRESSING - LOWER BODY - STEP 2: Does the patient require the assistance of a helper? Yes. DRESSING - LOWER BODY - STEP 3: Does the helper touch the patient while dressing? No. DRESSING - LOWER BODY - SCORE: 5-SUP TOILETING: TOILETING - STEP 1: Does the patient require assistance with toileting? Yes. TOILETING - STEP 2: Does the patient require the assistance of a helper? No. TOILETING - SCORE: 6-STACIE BLADDER MANAGEMENT: Activity did not occur on this shift BLADDER MANAGEMENT - SCORE: 7-IND BOWEL MANAGEMENT: Activity did not occur on this shift BOWEL MANAGEMENT - SCORE: 7-IND TRANSFERS: BED, CHAIR, WHEELCHAIR: Activity did not occur on this shift TRANSFERS: BED, CHAIR, WHEELCHAIR - SCORE: 0-UNK TRANSFERS: TOILET: TRANSFERS: TOILET - STEP 1: Does the patient require assistance with toilet transfers? Yes. TRANSFERS: TOILET - STEP 2: Does the patient require the assistance of a helper? No. Patient only requires an assistive device santos ch as a grab bar or special seat, OR s/he takes more than reasonable time to perform toilet transfers , OR there is a safety concern when s/he performs toilet transfers. TRANSFERS: TOILET - SCORE: 6-STACIE TRANSFERS: SHOWER: TRANSFERS: SHOWER - STEP 1: Does the patient require assistance with shower transfers? Yes. TRANSFERS: SHOWER - STEP 2: Does the patient require the assistance of a helper? No. The patient only uses an assistive device, t akes more than reasonable time, OR there is a concern for safety when s/he performs transfers. TRANSFERS: SHOWER - SCORE: 6-STACIE TRANSFERS: TUB: Activity did not occur on this shift TRANSFERS: TUB - SCORE: 0-UNK LOCOMOTION: WALK: Activity did not occur on this shift LOCOMOTION: WALK - SCORE: 0-UNK LOCOMOTION: WHEELCHAIR: Activity did not occur on this shift LOCOMOTION: WHEELCHAIR - SCORE: 0-UNK LOCOMOTION: STAIRS: Activity did not occur on this shift LOCOMOTION: STAIRS - SCORE: 0-UNK COMPREHENSION: COMPREHENSION: TYPE: Both COMPREHENSION - STEP 1: Does the patient require help to understand complex and abstract ideas (such as current events, finan lesvia, discharge planning, medical issues, relationships, etc)? Yes. COMPREHENSION - STEP 2: Does the patient require help to understand questions or statements about basic needs or ideas (such as hunger, thirst, sleep, safety, daily schedule, room location, or discomfort) half or more of the t cyrus? No. COMPREHENSION - STEP 3: How often does the patient need help to understand directions and conversation about basic needs? Les s than 10% of the time COMPREHENSION - SCORE: 5-SUP EXPRESSION EXPRESSION: TYPE: Both EXPRESSION - STEP 1: Does the patient require help expressing complex and abstract ideas (such as current events, finances , discharge planning, medical issues, relationships, etc)? No. EXPRESSION - STEP 2: Does the patient need extra time, require an assistive device (such as augmentive communication syste m or a communication board), OR does s/he have mild difficulty expressing complex and abstract ideas (including mild dysarthria or mild word-find problems)? Yes. EXPRESSION - SCORE: 6-STACIE SOCIAL INTERACTION: SOCIAL INTERACTION - STEP 1: Does the patient require a helper to interact with others in social and therapeutic situations? No. SOCIAL INTERACTION - STEP 2: Does the patient need extra time in social situations, OR does s/he interact with staff, other patien ts, and family members ONLY in structured environments, OR does s/he require medication for social in teraction? No. SOCIAL INTERACTION - SCORE: 7-IND PROBLEM SOLVING: PROBLEM SOLVING - STEP 1: Does the patient need help to solve complex problems such as managing a checking account or confronti ng interpersonal problems? Yes. PROBLEM SOLVING - STEP 2: Does the patient solve basic routine problems half or more of the time? Yes. PROBLEM SOLVING - STEP 3: How often does the patient need help to solve basic routine problems? Less than 10% of the time PROBLEM SOLVING - SCORE: 5-SUP MEMORY: MEMORY - STEP 1: Does the patient need help to remember frequently encountered people, daily routines, and executing r equests? Yes. MEMORY - STEP 2: How often does the patient need help to remember frequently encountered people, daily routines, and e xecuting requests? 10% - 24% of the time MEMORY - SCORE: 4-MIN SIGNATURE PANEL: The following modified sections: Eating - Score, Grooming - Score, Bathing - Score, Dressing - Upper Body - Score, Dressing - Lower Body - Score, Toileting - Score, Transfers: Bed, Chair, Wheelchair - S core, Transfers: Toilet - Score, Transfers: Shower - Score, Transfers: Tub - Score, Comprehension - S core, Expression - Score, Social Interaction - Score, Problem Solving - Score, Memory - Score were [e lectronically] signed by Judie Jackson OT on FriDec 26 2017 12:53:39 [facility]-0500 ([place] Time)
[2017-12-26] MEDS: TRAMADOL HCL 50 MG TAB PO PRN (13:33)
[2017-12-26] MEDS: DOCUSATE NA/SENNA CONC 1 TAB PO SCH (20:21)
[2017-12-26] MEDS: MELATONIN 3 MG TABLET PO PRN (20:22)
--- NOTE | 2017-12-27 02:42 | FAST ---
SHIFT START DATE/TIME: 12/26/2017 19:00 (CDT) SHIFT END DATE/TIME: 12/27/2017 07:00 (CDT) NAME BRO GRIMM DATE OF : 1945 DATE OF ADMISSION: 12/15/2017 15:20 (CDT) PHONE: AGE: 72 N# [id number] GENDER: Female ENCOUNTER PHYSICIAN: Dr. Joshua Melendez M.D. ADMISSION DIAGNOSIS: - Orthopaedic Disorders 08 - Pelvic Fracture (08.3) Vertebral Fx. EATING: Activity did not occur on this shift EATING - SCORE: 0-UNK GROOMING: Oral care Wash, rinse, and dry face Wash, rinse, and dry hands GROOMING - STEP 1: Does the patient require assistance when grooming? Yes. GROOMING - STEP 2: Does the patient require the assistance of a helper? Yes. GROOMING - STEP 3: How much assistance does the patient require from the helper? Only prior equipment preparation/set up from the helper GROOMING - SCORE: 5-SUP BATHING: Activity did not occur on this shift BATHING - SCORE: 0-UNK DRESSING - UPPER BODY: Patient is not dressing in public clothing ARTICLES SCORE Total number of steps: 0 DRESSING - UPPER BODY - SCORE: 0-UNK DRESSING - LOWER BODY: Patient is not dressing in public clothing ARTICLES SCORE Total number of steps: 0 DRESSING - LOWER BODY - SCORE: 0-UNK TOILETING: TOILETING - STEP 1: Does the patient require assistance with toileting? Yes. TOILETING - STEP 2: Does the patient require the assistance of a helper? Yes. TOILETING - STEP 3: How much assistance does the patient require from the helper? Hands-on assistance from the helper TOILETING - STEP 4: Of the 3 tasks: 1) Adjusting clothing prior to use, 2) Cleansing of perineal area, 3) Adjusting clot vinicio after use; How many tasks does the patient perform WITHOUT assistance of the helper? Three tasks with steadying assistance from the helper TOILETING - SCORE: 4-MIN BLADDER MANAGEMENT: BLADDER MANAGEMENT - STEP 1: Does the patient control the bladder completely and intentionally without equipment or devices or med ications, and is always continent? No. BLADDER MANAGEMENT - STEP 2: Does the patient require the assistance of a helper? Yes. BLADDER MANAGEMENT - STEP 3: How much assistance does the patient require from the helper? Patient requires contact assistance fro m the helper BLADDER MANAGEMENT - STEP 4: How much contact assistance does the patient require from the helper? Patient requires minimal assist ance to maintain an external device - by positioning, and the patient performs 75% or more of bladder management tasks, while the helper provides less than 25% of the assistance to position patient on / off bedpan BLADDER MANAGEMENT - SCORE: 4-MIN BOWEL MANAGEMENT: Activity did not occur on this shift BOWEL MANAGEMENT - SCORE: 7-IND TRANSFERS: BED, CHAIR, WHEELCHAIR: TRANSFERS: BED, CHAIR, WHEELCHAIR - STEP 1: Does the patient require assistance with bed, chair, or wheelchair transfers? Yes. TRANSFERS: BED, CHAIR, WHEELCHAIR - STEP 2: Does the patient require the assistance of a helper? Yes. TRANSFERS: BED, CHAIR, WHEELCHAIR - STEP 3: How much assistance does the patient require from the helper? Lifting of the legs TRANSFERS: BED, CHAIR, WHEELCHAIR - STEP 4: How many legs does the patient require the helper to lift? both legs TRANSFERS: BED, CHAIR, WHEELCHAIR - SCORE: 3-MOD TRANSFERS: TOILET: TRANSFERS: TOILET - STEP 1: Does the patient require assistance with toilet transfers? Yes. TRANSFERS: TOILET - STEP 2: Does the patient require the assistance of a helper? Yes. TRANSFERS: TOILET - STEP 3: How much assistance does the patient require from the helper? Patient performs half or more of the tr ansferring tasks TRANSFERS: TOILET - STEP 4: Does the patient need only incidental help such as contact guard or steadying during toilet transfer? Yes. TRANSFERS: TOILET - SCORE: 4-MIN TRANSFERS: SHOWER: Activity did not occur on this shift TRANSFERS: SHOWER - SCORE: 0-UNK TRANSFERS: TUB: Activity did not occur on this shift TRANSFERS: TUB - SCORE: 0-UNK LOCOMOTION: WALK: Activity did not occur on this shift LOCOMOTION: WALK - SCORE: 0-UNK LOCOMOTION: WHEELCHAIR: Activity did not occur on this shift LOCOMOTION: WHEELCHAIR - SCORE: 0-UNK COMPREHENSION: COMPREHENSION: TYPE: Both COMPREHENSION - STEP 1: Does the patient require help to understand complex and abstract ideas (such as current events, finan lesvia, discharge planning, medical issues, relationships, etc)? Yes. COMPREHENSION - STEP 2: Does the patient require help to understand questions or statements about basic needs or ideas (such as hunger, thirst, sleep, safety, daily schedule, room location, or discomfort) half or more of the t cyrus? No. COMPREHENSION - STEP 3: How often does the patient need help to understand directions and conversation about basic needs? 10% - 24% of the time COMPREHENSION - SCORE: 4-MIN EXPRESSION EXPRESSION: TYPE: Both EXPRESSION - STEP 1: Does the patient require help expressing complex and abstract ideas (such as current events, finances , discharge planning, medical issues, relationships, etc)? No. EXPRESSION - STEP 2: Does the patient need extra time, require an assistive device (such as augmentive communication syste m or a communication board), OR does s/he have mild difficulty expressing complex and abstract ideas (including mild dysarthria or mild word-find problems)? Yes. EXPRESSION - SCORE: 6-STACIE SOCIAL INTERACTION: SOCIAL INTERACTION - STEP 1: Does the patient require a helper to interact with others in social and therapeutic situations? No. SOCIAL INTERACTION - STEP 2: Does the patient need extra time in social situations, OR does s/he interact with staff, other patien ts, and family members ONLY in structured environments, OR does s/he require medication for social in teraction? Yes, patient needs extra time SOCIAL INTERACTION - SCORE: 6-STACIE PROBLEM SOLVING: PROBLEM SOLVING - STEP 1: Does the patient need help to solve complex problems such as managing a checking account or confronti ng interpersonal problems? No. PROBLEM SOLVING - STEP 2: Does the patient require extra time to make decisions or solve problems, OR does s/he have slight dif ficulty reading, initiating, or self-correcting in unfamiliar situations? Yes, patient needs extra ti me. PROBLEM SOLVING - SCORE: 6-STACIE MEMORY: MEMORY - STEP 1: Does the patient need help to remember frequently encountered people, daily routines, and executing r equests? No. MEMORY - STEP 2: Does the patient have slight difficulty recognizing frequently encountered people, daily routines, or executing requests without the need for repetition or using self-initiated or environmental cues to remember? Yes. MEMORY - SCORE: 6-STACIE
[2017-12-27] MEDS: ATENOLOL 50 MG TAB PO SCH (05:03)
[2017-12-27 07:13] VITALS: BP 160/74; TEMP 97.8
[2017-12-27] MEDS: ENSURE ENLIVE 237 ML CAN PO SCH (08:00)
[2017-12-27] MEDS: PROMOD 30 ML DOSE PO SCH (08:00)
[2017-12-27] MEDS: LIDOCAINE 5% PATCH TOP SCH (08:40)
[2017-12-27] MEDS: CRANBERRY FRUIT EXTRACT 200 MG CAP PO SCH (08:41)
[2017-12-27] MEDS: FE SULF/FA/VIT B COMP & C TAB PO SCH (08:41)
[2017-12-27] MEDS: MAGNESIUM OXIDE 400 MG TAB PO SCH (08:41)
[2017-12-27] MEDS: FERROUS SULFATE 325 MG TAB PO SCH (08:41)
[2017-12-27] MEDS: DULOXETINE 20 MG CAP PO SCH (08:41)
[2017-12-27] MEDS: PANTOPRAZOLE 40MG TABLET PO SCH (08:41)
[2017-12-27] MEDS: ASPIRIN 81 MG CHEWABLE TABLET PO SCH (08:42)
[2017-12-27] MEDS: HYDROCODONE/APAP 10/325 TAB PO PRN (08:42)
[2017-12-27] MEDS: LISINOPRIL 5 MG TAB PO SCH (08:42)
[2017-12-27] MEDS: APIXABAN 2.5 MG TABLET PO SCH (08:42)
[2017-12-27] MEDS: DOCUSATE NA 100 MG CAP PO SCH (08:42)
[2017-12-27] MEDS: POTASSIUM CL SA 10 MEQ TAB PO SCH (08:42)
--- NOTE | 2017-12-27 13:36 | FAST ---
SHIFT START DATE/TIME: 12/27/2017 07:00 (CDT) SHIFT END DATE/TIME: 12/27/2017 19:00 (CDT) NAME BRO GRIMM DATE OF : 1945 DATE OF ADMISSION: 12/15/2017 15:20 (CDT) PHONE: AGE: 72 N# [id number] GENDER: Female ENCOUNTER PHYSICIAN: Dr. Joshua Melendez M.D. ADMISSION DIAGNOSIS: - Orthopaedic Disorders 08 - Pelvic Fracture (08.3) Vertebral Fx. EATING: EATING - STEP 1: Does the patient require assistance when eating? Yes. EATING - STEP 2: Does the patient require the assistance of a helper? No, patient only requires an assistive device, O R s/he takes more than reasonable time to eat, OR there is a safety concern, OR s/he requires modifie d food consistency EATING - SCORE: 6-STACIE GROOMING: Comb/brush hair Oral care Wash, rinse, and dry face Wash, rinse, and dry hands GROOMING - STEP 1: Does the patient require assistance when grooming? Yes. GROOMING - STEP 2: Does the patient require the assistance of a helper? No. The patient only requires an assistive devic e, OR takes more than reasonable time to groom, OR there is a concern for safety as the patient groom s GROOMING - SCORE: 6-STACIE BATHING: Activity did not occur on this shift BATHING - SCORE: 0-UNK DRESSING - UPPER BODY: ARTICLES SCORE Total number of steps: 0 DRESSING - UPPER BODY - STEP 1: Does the patient require help when dressing above the waist? Yes. DRESSING - UPPER BODY - STEP 2: Does the patient require the assistance of a helper? No. Patient only requires an assistive device, s uch as a button hook, velcro, or lead slot technician. OR s/he takes more than reasonable time as s/he dresses the upper body. OR there is a concern for safety when s/he dresses the upper body DRESSING - UPPER BODY - SCORE: 6-STACIE DRESSING - LOWER BODY: Elastic waist pants (three steps) Underwear (three steps) ARTICLES SCORE Total number of steps: 6 DRESSING - LOWER BODY - STEP 1: Does the patient require help when dressing below the waist? Yes. DRESSING - LOWER BODY - STEP 2: Does the patient require the assistance of a helper? No. Patient requires an assistive device such as a lead slot technician. OR s/he takes more than reasonable time as s/he dresses the lower body, OR there is a con cern for safety when s/he dresses the lower body DRESSING - LOWER BODY - SCORE: 6-STACIE TOILETING: TOILETING - STEP 1: Does the patient require assistance with toileting? Yes. TOILETING - STEP 2: Does the patient require the assistance of a helper? No. TOILETING - SCORE: 6-STACIE BLADDER MANAGEMENT: BLADDER MANAGEMENT - STEP 1: Does the patient control the bladder completely and intentionally without equipment or devices or med ications, and is always continent? Yes. BLADDER MANAGEMENT - SCORE: 7-IND BLADDER MANAGEMENT - FREQUENCY OF ACCIDENTS: BLADDER MANAGEMENT(FA) - STEP 1: How many accidents has the patient had during the current shift? 0 BOWEL MANAGEMENT: Activity did not occur on this shift BOWEL MANAGEMENT - SCORE: 7-IND BOWEL MANAGEMENT - FREQUENCY OF ACCIDENTS: BOWEL MANAGEMENT(FA) - STEP 1: How many accidents has the patient had during the current shift? 0 TRANSFERS: BED, CHAIR, WHEELCHAIR: TRANSFERS: BED, CHAIR, WHEELCHAIR - STEP 1: Does the patient require assistance with bed, chair, or wheelchair transfers? Yes. TRANSFERS: BED, CHAIR, WHEELCHAIR - STEP 2: Does the patient require the assistance of a helper? No. Patient only requires an assistive device fo r bed, chair, wheelchair transfers such as a sliding board, grab bar, or brace, OR s/he takes more th an reasonable time, OR there is a safety concern when s/he performs the transfers TRANSFERS: BED, CHAIR, WHEELCHAIR - SCORE: 6-STACIE TRANSFERS: TOILET: TRANSFERS: TOILET - STEP 1: Does the patient require assistance with toilet transfers? Yes. TRANSFERS: TOILET - STEP 2: Does the patient require the assistance of a helper? No. Patient only requires an assistive device santos ch as a grab bar or special seat, OR s/he takes more than reasonable time to perform toilet transfers , OR there is a safety concern when s/he performs toilet transfers. TRANSFERS: TOILET - SCORE: 6-STACIE TRANSFERS: SHOWER: Activity did not occur on this shift TRANSFERS: SHOWER - SCORE: 0-UNK TRANSFERS: TUB: Activity did not occur on this shift TRANSFERS: TUB - SCORE: 0-UNK LOCOMOTION: WALK: Activity did not occur on this shift LOCOMOTION: WALK - SCORE: 0-UNK LOCOMOTION: WHEELCHAIR: LOCOMOTION: WHEELCHAIR - STEP 1: Does the patient need help to go 150 feet in a wheelchair? Yes. LOCOMOTION: WHEELCHAIR - STEP 2: How much assistance does the patient need from the helper? Only supervision, cuing, or coaxing LOCOMOTION: WHEELCHAIR - SCORE: 5-SUP COMPREHENSION: COMPREHENSION: TYPE: Both COMPREHENSION - STEP 1: Does the patient require help to understand complex and abstract ideas (such as current events, finan lesvia, discharge planning, medical issues, relationships, etc)? No. COMPREHENSION - STEP 2: Does the patient need extra time, require an assistive device (such as glasses for visual comprehensi on or a hearing aid for auditory comprehension) or does s/he have mild difficulty understanding compl ex and abstract information? Yes. COMPREHENSION - SCORE: 6-STACIE EXPRESSION EXPRESSION: TYPE: Both EXPRESSION - STEP 1: Does the patient require help expressing complex and abstract ideas (such as current events, finances , discharge planning, medical issues, relationships, etc)? No. EXPRESSION - STEP 2: Does the patient need extra time, require an assistive device (such as augmentive communication syste m or a communication board), OR does s/he have mild difficulty expressing complex and abstract ideas (including mild dysarthria or mild word-find problems)? Yes. EXPRESSION - SCORE: 6-STACIE SOCIAL INTERACTION: SOCIAL INTERACTION - STEP 1: Does the patient require a helper to interact with others in social and therapeutic situations? No. SOCIAL INTERACTION - STEP 2: Does the patient need extra time in social situations, OR does s/he interact with staff, other patien ts, and family members ONLY in structured environments, OR does s/he require medication for social in teraction? Yes, patient needs extra time SOCIAL INTERACTION - SCORE: 6-STACIE PROBLEM SOLVING: PROBLEM SOLVING - STEP 1: Does the patient need help to solve complex problems such as managing a checking account or confronti ng interpersonal problems? No. PROBLEM SOLVING - STEP 2: Does the patient require extra time to make decisions or solve problems, OR does s/he have slight dif ficulty reading, initiating, or self-correcting in unfamiliar situations? Yes, patient needs extra ti me. PROBLEM SOLVING - SCORE: 6-STACIE MEMORY: MEMORY - STEP 1: Does the patient need help to remember frequently encountered people, daily routines, and executing r equests? No. MEMORY - STEP 2: Does the patient have slight difficulty recognizing frequently encountered people, daily routines, or executing requests without the need for repetition or using self-initiated or environmental cues to remember? Yes. MEMORY - SCORE: 6-STACIE SIGNATURE PANEL: The following modified sections: Eating - Score, Grooming - Score, Bathing - Score, Dressing - Upper Body - Score, Dressing - Lower Body - Score, Toileting - Score, Bladder Management - Score, Bowel Man agement - Score, Transfers: Bed, Chair, Wheelchair - Score, Transfers: Toilet - Score, Transfers: Laurel wer - Score, Transfers: Tub - Score, Locomotion: Walk - Score, Locomotion: Wheelchair - Score, Compre hension - Score, Expression - Score, Social Interaction - Score, Problem Solving - Score, Memory - Sc ore were [electronically] signed by Milagro Yoo C.N.A. on Sat Dec 27 2017 13:36:28 [facility]-0500 ([place] [facility])
== END 2017-12-27 10:15 | disposition home health service (06) | DRG 561 ==
LOC: 5TH 15:20
PROVIDERS: ADMIT Psychiatry & Neurology Neurology with Special Qualifications in Child Neurology; ATTEND Psychiatry & Neurology Neurology with Special Qualifications in Child Neurology
PROC: 0DB88ZX Excision of Small Intestine, Via Natural or Artificial Opening Endoscopic, Diagnostic (ICD-10-PCS; 2017-12-24)
PROC: 0DB68ZX Excision of Stomach, Via Natural or Artificial Opening Endoscopic, Diagnostic (ICD-10-PCS; principal; 2017-12-24 10:00)
DX: S32.9XXD Fracture of unspecified parts of lumbosacral spine and pelvis, subsequent encounter for fracture with routine healing (principal); K44.9 Diaphragmatic hernia without obstruction or gangrene; K29.60 Other gastritis without bleeding
CPT/HCPCS: 36415; 71045; 71275; 80048; 81001; 82040; 83735; 84134; 85025; 87077; 87086; 87088; 87186; 87493; 88305; 88312; 93970; 97542; J1170; Q9967

== ENCOUNTER 2018-12-24 17:51 | Emergency (ER) | payer OTHER, BC ==
--- NOTE | 2018-12-24 19:35 | RAD REPORT ---
EXAM DESCRIPTION: US - Extremity Venous Uni Ltd - 12/24/2018 7:25 pm CLINICAL HISTORY: Pain;Swelling Leg swelling and edema. COMPARISON: Extremity Venous Uni Ltd dated 11/23/2018 FINDINGS: Left lower extremity venous system was interrogated with Doppler technique. Normal flow, c ompressibility and augmentation was noted. There is no DVT present. IMPRESSION: No evidence of left lower extremity deep venous thrombosis.
[2018-12-24] MEDS ORDERED: SMZ./TMP. 800/160 MG TABLET ONE ×2 (19:50→21:11)
[2018-12-24] MEDS ORDERED: CEFTRIAXONE/SWI 1gm 1 GM/10 ML SYR ONE (19:50)
[2018-12-24 20:28] LABS: Basophils % 0.9 % (0-1.3); Hematocrit 35.4 % (36.0-45.0); Lymphocytes % 15.3 % (15.3-44.8); MPV 9.6 fL (7.6-11.3); RBC Red Blood Cell Count 4.23 M/uL (3.86-4.86)
[2018-12-24 20:36] LABS: Potassium 3.8 mmol/L (3.5-5.1)
--- NOTE | 2018-12-24 20:49 | ER ---
Nurse's Notes [facility] Name: Arianne Ambriz Age: 73 yrs Sex: Female : 1945 Arrival Date: 12/24/2018 Time: 17:56 Bed 5 Private MD: Stu Groves Diagnosis: Cellulitis of left lower limb Presentation: 12/24 18:13 Presenting complaint: Patient states: I have had leg pain and redness and swelling in aa5 my right leg for years, but here lately its had some swelling and draining from the leg, it itches and I scratch it and mess with it then it bleeds, and drains. Denies N/V/D/Fever. Transition of care: patient was not received from another setting of care. Onset of symptoms was December 24, 2018. Risk Assessment: Do you want to hurt yourself or someone else? Patient reports no desire to harm self or others. Initial Sepsis Screen: Does the patient meet any 2 criteria? No. Patient's initial sepsis screen is negative. Does the patient have a suspected source of infection? No. Patient's initial sepsis screen is negative. Care prior to arrival: None. 18:13 Method Of Arrival: Ambulatory aa5 18:13 Acuity: THADDEUS 3 aa5 Historical: - Allergies: 18:16 Neurontin; aa5 18:16 Stadol; (cardiac arrest); aa5 20:47 Ciprofloxacin (dizziness); ch 20:47 Levaquin; ch 20:50 TETRACYCLINES; ch 20:50 Erythromycin; ch - Home Meds: 18:16 atenolol 25 mg Oral tab 0.5 tab once daily [Active]; aa5 20:48 atenolol 50 mg Oral tab PRN [Active]; Flonase 50 mcg/actuation Nasal spsn 1 spray 2 ch times per day [Active]; morphine 30 mg Oral TbER 1 tab every 6 hours [Active]; Nexium 40 mg Oral cpDR 1 cap once daily [Active]; oxycodone 30 mg Oral TR12 [Active]; - PMHx: 18:16 Arthritis; Back pain; Lucinda hip bursitis; Chronic pain; Complication of anesthesia; DVT; aa5 GERD; Hypertension; - PSHx: 18:16 Knee surgery; hand; Carpal Tunnel Repair; aa5 - Immunization history:: Adult Immunizations up to date. - Social history:: Smoking status: Patient/guardian denies using tobacco. - Ebola Screening: : Patient negative for fever greater than or equal to 101.5 degrees Fahrenheit, and additional compatible Ebola Virus Disease symptoms Patient denies exposure to infectious person Patient denies travel to an Ebola-affected area in the 21 days before illness onset No symptoms or risks identified at this time. Screenin:01 Abuse screen: Denies threats or abuse. Denies injuries from another. Nutritional screening: No deficits noted. Tuberculosis screening: No symptoms or risk factors identified. Fall Risk None identified. Assessment: 20:01 General: Appears in no apparent distress. comfortable, Behavior is calm, cooperative, ch appropriate for age. Pain: Complains of pain in right leg and left leg Pain currently is 3 out of 10 on a pain scale. Pain began gradually. Neuro: No deficits noted. Level of Consciousness is awake, alert, obeys commands, Oriented to person, place, time, situation, [employer] are equal bilaterally Speech is normal, Facial symmetry appears normal, Facial symmetry: tongue is midline. Cardiovascular: Pulses are all present. Edema is 3+ to left midcalf, left ankle, left foot, right ankle and right foot pitting to right midcalf, right ankle and right foot pt has redness to lucinda legs, worse on the L with weeping from the L leg. Respiratory: Airway is patent Respiratory effort is even, unlabored, Breath sounds are clear bilaterally. GI: No signs and/or symptoms were reported involving the gastrointestinal system. : No signs and/or symptoms were reported regarding the genitourinary system. Derm: Skin is pale. 20:45 Reassessment: Patient appears in no apparent distress at this time. attempting to call up health system pharmacy now. 21:26 Reassessment: Patient appears in no apparent distress at this time. Patient is alert, aa1 oriented x 3, equal unlabored respirations, skin warm/dry/pink. Discussed d/c \T\ f/u instructions with pt \T\ spouse; denies questions or concerns at this time. Vital Signs: 18:16 Pulse 93 MON; Resp 16; Temp 97.7; Pulse Ox 99% on R/A; Weight 65.77 kg; Height 5 ft. 4 aa5 in. (162.56 cm); Pain 06/07; 20:01 BP 145 / 86; Pulse 90; Resp 16; Temp 98.5; Pulse Ox 93% on R/A; Pain 4/10; ch 21:26 BP 122 / 61; Pulse 92; Resp 18; Pulse Ox 98% on R/A; aa1 18:16 Body Mass Index 24.89 (65.77 kg, 162.56 cm) aa5 ED Course: 17:56 Patient arrived in ED. as 17:57 Stu Groves DO is Private Physician. as 18:15 Triage completed. aa5 18:15 Divya Willams, RN is Primary Nurse. ca1 18:15 Arm band placed on. aa5 18:20 Eb Lyons MD is Attending Physician. gs 18:31 Karen Noble FNP-C is PHCP. kb 18:31 Eb Lyons MD is Attending Physician. kb 18:32 Karen Noble FNP-C is PHCP. kb 18:32 Eb Lyons MD is Attending Physician. kb 18:53 Primary Nurse role handed off by Divya Willams, RICO ch 18:53 Evelia Bullard, RICO is Primary Nurse. ch 19:35 US Extremity Venous Unilateral Ltd In Process Unspecified. EDMS 20:01 No apparent distress. ch 20:01 Patient has correct armband on for positive identification. Bed in low position. Call light in reach. Side rails up X 1. Adult w/ patient. Pulse ox on. NIBP on. Door closed. Noise minimized. Verbal reassurance given. 20:01 No provider procedures requiring assistance completed. Initial lab(s) drawn, by dc, ch sent to lab. Inserted saline lock: 20 gauge in left antecubital area, using aseptic technique. Blood collected. 20:48 Stu Groves DO is Referral Physician. kb 21:26 IV discontinued, intact, bleeding controlled, No redness/swelling at site. Pressure aa1 dressing applied. Administered Medications: 20:05 Drug: Rocephin - (cefTRIAXone) 1 grams Route: IVPB; Infused Over: 30 mins; Site: left antecubital; 20:15 Follow up: Response: No adverse reaction; IV Status: Completed infusion; IV Intake: 10mlch 20:05 Not Given (Patient Refused; pt states she thinks she had a bad reaction to it once): Bactrim (160 mg-800 mg (DS) 1 tablet PO once 21:20 Drug: Bactrim (160 mg-800 mg (DS) 1 tablet Route: PO; aa1 21:26 Follow up: Response: No adverse reaction; Medication administered at discharge. aa1 Intake: 20:15 IV: 10ml; Total: 10ml. Outcome: 20:48 Discharge ordered by . kalina 21:26 Discharged to home via wheelchair, with significant other. aa1 21: Condition: good 21:26 Discharge instructions given to patient, significant other, Instructed on discharge instructions, follow up and referral plans. medication usage, Demonstrated understanding of instructions, follow-up care, medications, Prescriptions given X 2. 21:28 Patient left the ED. aa1 Signatures: Dispatcher [employer] EDMS Karen Noble, COLLECTION MANAGER-C COLLECTION MANAGER-Ckb Evelia Bullard, RN RN Marielle Ghosh RN RN aa1 Sejal Andujar Audri RN RN aa5 Eb Lyons MD MD gs AcDivya olivier RN RN ca1
--- NOTE | 2018-12-24 20:50 | EDPHYS ---
Physician Documentation [facility] Name: Arianne Ambriz Age: 73 yrs Sex: Female : 1945 Arrival Date: 12/24/2018 Time: 17:56 Bed 5 Private MD: Stu Groves ED Physician Eb Lyons HPI: 12/24 20:46 This 73 yrs old Female presents to ER via Ambulatory with complaints of Leg kb Swelling. 20:46 The patient presents with cellulitis of the left lower leg. Description: erythematous, kb hot, swollen. Onset: The symptoms/episode began/occurred 1 month(s) ago. Possible cause(s): unknown. Associated signs and symptoms: Pertinent positives: erythema, swelling, Pertinent negatives: discharge, drainage, foreign body sensation, fever, headache, nausea, shortness of breath, vomiting. Modifying factors: the symptoms are alleviated by nothing, the symptoms are aggravated by nothing. Severity of symptoms: At their worst the symptoms were moderate, in the emergency department the symptoms are unchanged. The patient has not experienced similar symptoms in the past. The patient has not recently seen a physician. Pt reports swelling in left leg for a couple of years. Redness started a month ago, waxes and wanes. . Historical: - Allergies: 18:16 Neurontin; aa5 18:16 Stadol; (cardiac arrest); aa5 20:47 Ciprofloxacin (dizziness); ch 20:47 Levaquin; ch 20:50 TETRACYCLINES; ch 20:50 Erythromycin; ch - Home Meds: 18:16 atenolol 25 mg Oral tab 0.5 tab once daily [Active]; aa5 20:48 atenolol 50 mg Oral tab PRN [Active]; Flonase 50 mcg/actuation Nasal spsn 1 spray 2 ch times per day [Active]; morphine 30 mg Oral TbER 1 tab every 6 hours [Active]; Nexium 40 mg Oral cpDR 1 cap once daily [Active]; oxycodone 30 mg Oral TR12 [Active]; - PMHx: 18:16 Arthritis; Back pain; William hip bursitis; Chronic pain; Complication of anesthesia; DVT; aa5 GERD; Hypertension; - PSHx: 18:16 Knee surgery; hand; Carpal Tunnel Repair; aa5 - Immunization history:: Adult Immunizations up to date. - Social history:: Smoking status: Patient/guardian denies using tobacco. - Ebola Screening: : Patient negative for fever greater than or equal to 101.5 degrees Fahrenheit, and additional compatible Ebola Virus Disease symptoms Patient denies exposure to infectious person Patient denies travel to an Ebola-affected area in the 21 days before illness onset No symptoms or risks identified at this time. ROS: 20:46 Constitutional: Negative for fever, chills, and weight loss, ENT: Negative for injury, kb pain, and discharge, Neck: Negative for injury, pain, and swelling, Cardiovascular: Negative for chest pain, palpitations, and edema, Respiratory: Negative for shortness of breath, cough, wheezing, and pleuritic chest pain, Abdomen/GI: Negative for abdominal pain, nausea, vomiting, diarrhea, and constipation, Neuro: Negative for headache, weakness, numbness, tingling, and seizure. 20:46 Skin: Positive for erythema, swelling, of the left lower leg. Exam: 20:46 Constitutional: This is a well developed, well nourished patient who is awake, alert, kb and in no acute distress. Head/Face: Normocephalic, atraumatic. Neck: Trachea midline, no thyromegaly or masses palpated, and no cervical lymphadenopathy. Supple, full range of motion without nuchal rigidity, or vertebral point tenderness. No Meningismus. Chest/axilla: Normal chest wall appearance and motion. Nontender with no deformity. No lesions are appreciated. Cardiovascular: Regular rate and rhythm with a normal S1 and S2. No gallops, murmurs, or rubs. Normal PMI, no JVD. No pulse deficits. Respiratory: Lungs have equal breath sounds bilaterally, clear to auscultation and percussion. No rales, rhonchi or wheezes noted. No increased work of breathing, no retractions or nasal flaring. Abdomen/GI: Soft, non-tender, with normal bowel sounds. No distension or tympany. No guarding or rebound. No evidence of tenderness throughout. MS/ Extremity: Pulses equal, no cyanosis. Neurovascular intact. Full, normal range of motion. Neuro: Awake and alert, GCS 15, oriented to person, place, time, and situation. Cranial nerves II-XII grossly intact. Motor strength 5/5 in all extremities. Sensory grossly intact. Cerebellar exam normal. Normal gait. 20:46 Skin: cellulitis, that is moderate, on the left lower leg. Vital Signs: 18:16 Pulse 93 MON; Resp 16; Temp 97.7; Pulse Ox 99% on R/A; Weight 65.77 kg; Height 5 ft. 4 aa5 in. (162.56 cm); Pain 3/10; 20:01 BP 145 / 86; Pulse 90; Resp 16; Temp 98.5; Pulse Ox 93% on R/A; Pain 4/10; ch 21:26 BP 122 / 61; Pulse 92; Resp 18; Pulse Ox 98% on R/A; aa1 18:16 Body Mass Index 24.89 (65.77 kg, 162.56 cm) aa5 MDM: 18:20 Patient medically screened. gs 20:40 Data reviewed: vital signs, nurses notes. Data interpreted: Pulse oximetry: on room air kb is 95 %. Interpretation: normal. Counseling: I had a detailed discussion with the patient and/or guardian regarding: the historical points, exam findings, and any diagnostic results supporting the discharge/admit diagnosis, lab results, radiology results, the need for outpatient follow up, a family practitioner, to return to the emergency department if symptoms worsen or persist or if there are any questions or concerns that arise at home. 12/24 18:21 Order name: CBC with Diff; Complete Time: 20:40 12/24 18:21 Order name: Basic Metabolic Panel; Complete Time: 20:40 12/24 18:21 Order name: Blood Culture* 12/24 18:21 Order name: Extremity Venous Unilateral Ltd; Complete Time: 19:47 Administered Medications: 20:05 Drug: Rocephin - (cefTRIAXone) 1 grams Route: IVPB; Infused Over: 30 mins; Site: left ch antecubital; 20:15 Follow up: Response: No adverse reaction; IV Status: Completed infusion; IV Intake: 10mlch 20:05 Not Given (Patient Refused; pt states she thinks she had a bad reaction to it once): Bactrim (160 mg-800 mg (DS) 1 tablet PO once 21:20 Drug: Bactrim (160 mg-800 mg (DS) 1 tablet Route: PO; aa1 21:26 Follow up: Response: No adverse reaction; Medication administered at discharge. aa1 Disposition: 12/24/18 20:48 Discharged to Home. Impression: Cellulitis of left lower limb. - Condition is Stable. - Discharge Instructions: Cellulitis, Adult, [id number]. - Prescriptions for Keflex 500 mg Oral Capsule - take 1 capsule by ORAL route every 8 hours for 10 days; 30 capsule. Bactrim DS 800- 160 mg Oral Tablet - take 1 tablet by ORAL route every 12 hours for 10 days; 20 tablet. - Medication Reconciliation Form, Thank You Letter, Antibiotic Education, Prescription Opioid Use form. - Follow up: Emergency Department; When: As needed; Reason: Worsening of condition. Follow up: Stu Groves DO; When: 2 - 3 days; Reason: Recheck today's complaints, Continuance of care, Re-evaluation by your physician. Signatures: Dispatcher [employer] EDMS Karen Noble, DENTAL FINANCIAL COORDINATOR-C DENTAL FINANCIAL COORDINATOR-Ckb Evelia Bullard, RN RN Marielle Ghosh RN RN aa1 Yumiko Serrato RN RN aa5 Eb Lyons MD MD Corrections: (The following items were deleted from the chart) 21:28 20:48 12/24/2018 20:48 Discharged to Home. Impression: Cellulitis of left lower limb. aa1 Condition is Stable. Forms are Medication Reconciliation Form, Thank You Letter, Antibiotic Education, Prescription Opioid Use. Follow up: Emergency Department; When: As needed; Reason: Worsening of condition. Follow up: Stu Groves; When: 2 - 3 days; Reason: Recheck today's complaints, Continuance of care, Re-evaluation by your physician. kb
[2018-12-24 23:50] VITALS: TEMP 98.5
[2018-12-24 23:52] VITALS: BP 122/61; O2SAT 98
== END 2018-12-24 21:28 | disposition home or self-care (01) ==
LOC: ER 17:51
DX: L03.116 Cellulitis of left lower limb (principal); Z88.1 Allergy status to other antibiotic agents; Z88.3 Allergy status to other anti-infective agents; K21.9 Gastro-esophageal reflux disease without esophagitis; I10 Essential (primary) hypertension; G89.29 Other chronic pain; I82.409 Acute embolism and thrombosis of unspecified deep veins of unspecified lower extremity
CPT/HCPCS: 87040; 85025; 80048; 36415; 93971; 96374; 99284; J0696

== ENCOUNTER 2019-04-18 17:46 | Emergency (ER) | payer OTHER, BC ==
--- OUTSIDE RECORDS SUMMARY | 2019-04-18 17:50 | XMS REPORT ---
:1945 Author Organization [employer] Care Team Providers Name Role Phone Germain Stu Provider Role Unavailable Allergies No Known Allergies Problems Problem Type Condition Code Onset Dates Condition Status Problem Anxiety F41.9 Active Problem Flu vaccine need Z23 Active Problem Allergic T78.40XA Active Problem Venous insufficiency of both lower I87.2 Active extremities Problem Anemia due to other cause, not D64.89 Active classified Problem Pruritic dermatitis L29.9 Active Problem Adjustment disorder, unspecified F43.20 Active Problem Other pulmonary embolism without I26.99 Active acute cor pulmonale, unspecified chronicity Problem Iron deficiency anemia, D50.9 Active unspecified iron deficiency anemia type Problem History of fall Z91.81 Active Problem 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
--- OUTSIDE RECORDS SUMMARY | 2019-04-18 17:50 | XMS REPORT ---
:1945 [facility] [address] [place] [address] Care Team Providers Name Role Phone NISHA STEWARD Unavailable Unavailable Problems This patient has no known problems. Allergies, Adverse Reactions, Alerts This patient has no known allergies or adverse reactions. Medications This patient has no known medications. Results Test Description Test Time Test Comments Text Results Atomic Results Result Comments LORENA KYPHBENIGNO, 2016-12-11 What level(s) should be FINAL REPORT PATIENT LUMBAR, INITIAL 08:42:00 performed->L4-5Reason for ID: [id number] exam:->COMPRESSION FRACTURE HISTORY: L4 and L5 wedge [...] MDReport Verified Date/Time: 12/11/2016 08:42:31 Reading Location: [place] [address] Angio Body Reading Room AND CREATININE 2016-12-08 06:18:00 Test Item Value Reference Range Comments BLOOD UREA NITROGEN 14 mg/dL 7-21 (BEAKER) (test orpl=453) CREATININE (BEAKER) (test 0.58 mg/dL 0.57-1.25 cxzh=381) EGFR (BEAKER) (test 102 mL/min/1.73 sq m ESTIMATED GFR IS NOT zusj=0683) ACCURATE CREATININE CLEARANCE IN PREDICTING GLOMERULAR FILTRATION RATE. ESTIMATED GFR IS NOT APPLICABLE FOR DIALYSIS PATIENTS. CBC (HEMOGRAM ONLY)2016-12-08 05:52:00 Test Item Value Reference Range Comments WHITE BLOOD CELL COUNT (BEAKER) (test zgdk=196) 9.9 K/ L 3.5-10.5 RED BLOOD CELL COUNT (BEAKER) (test hsxp=270) 3.95 M/ L 3.93-5.22 HEMOGLOBIN (BEAKER) (test nkpn=612) 11.9 GM/DL 11.2-15.7 HEMATOCRIT (BEAKER) (test odte=664) 36.8 % 34.1-44.9 MEAN CORPUSCULAR VOLUME (BEAKER) (test ruaq=167) 93.2 fL 79.4-94.8 MEAN CORPUSCULAR HEMOGLOBIN (BEAKER) (test 30.1 pg 25.6-32.2 chng=554) MEAN CORPUSCULAR HEMOGLOBIN CONC (BEAKER) (test 32.3 GM/DL 32.2-35.5 kblc=970) RED CELL DISTRIBUTION WIDTH (BEAKER) (test 13.5 % 11.7-14.4 ircw=756) PLATELET COUNT (BEAKER) (test irrc=534) 282 K/CU MM 150-450 MEAN PLATELET VOLUME (BEAKER) (test kqee=751) 10.4 fL 9.4-12.3 NUCLEATED RED BLOOD CELLS (BEAKER) (test 0 /100 WBC 0-0 xwse=268) BASIC METABOLIC [id number] 06:49:00 Test Item Value Reference Range Comments SODIUM (BEAKER) (test 136 meq/L 136-145 yntr=184) POTASSIUM (BEAKER) (test 4.0 meq/L 3.5-5.1 khmj=719) CHLORIDE (BEAKER) (test 103 meq/L 98-107 jami=056) CO2 (BEAKER) (test 27 meq/L 22-29 rnad=004) BLOOD UREA NITROGEN 15 mg/dL 7-21 (BEAKER) (test ntky=748) CREATININE (BEAKER) (test 0.60 mg/dL 0.57-1.25 davm=685) GLUCOSE RANDOM (BEAKER) 96 mg/dL 70-105 (test bcpa=651) CALCIUM (BEAKER) (test 9.7 mg/dL 8.4-10.2 jled=129) EGFR (BEAKER) (test 98 mL/min/1.73 sq m ESTIMATED GFR IS NOT ztle=1549) ACCURATE CREATININE CLEARANCE IN PREDICTING GLOMERULAR FILTRATION RATE. ESTIMATED GFR IS NOT APPLICABLE FOR DIALYSIS PATIENTS. PROTHROMBIN TIME/[id number] 06:31:00 Test Item Value Reference Range Comments PROTIME (BEAKER) (test phhi=764) 13.4 seconds 11.7-14.7 INR (BEAKER) (test ydom=345) 1.0 <=5.9 RECOMMENDED COUMADIN/WARFARIN INR THERAPY RANGESSTANDARD DOSE: 2.0 - 3.0 Includes: PROPHYLAXIS forvenous thrombosis, systemic embolization; TREATMENT for venous thrombosis and/or pulmonary embolus.HIGH RISK: Target INR is 2.5-3.5 for patients with mechanical heart valves.[id number] 06:31:00 Test Item Value Reference Range Comments PARTIAL THROMBOPLASTIN TIME (BEAKER) (test 26.2 seconds 22.5-36.0 olwp=155) CBC W/PLT COUNT & AUTO [id number] 06:23:00 Test Item Value Reference Range Comments WHITE BLOOD CELL COUNT (BEAKER) (test vsdt=283) 9.5 K/ L 3.5-10.5 RED BLOOD CELL COUNT (BEAKER) (test aycu=371) 4.03 M/ L 3.93-5.22 HEMOGLOBIN (BEAKER) (test ddco=772) 12.3 GM/DL 11.2-15.7 HEMATOCRIT (BEAKER) (test augr=318) 37.0 % 34.1-44.9 MEAN CORPUSCULAR VOLUME (BEAKER) (test umeo=770) 91.8 fL 79.4-94.8 MEAN CORPUSCULAR HEMOGLOBIN (BEAKER) (test 30.5 pg 25.6-32.2 fhuh=086) MEAN CORPUSCULAR HEMOGLOBIN CONC (BEAKER) (test 33.2 GM/DL 32.2-35.5 kloa=457) RED CELL DISTRIBUTION WIDTH (BEAKER) (test 13.6 % 11.7-14.4 tosx=227) PLATELET COUNT (BEAKER) (test fvoj=615) 297 K/CU MM 150-450 MEAN PLATELET VOLUME (BEAKER) (test wksh=125) 10.2 fL 9.4-12.3 NUCLEATED RED BLOOD CELLS (BEAKER) (test 0 /100 WBC 0-0 uxdf=996) NEUTROPHILS RELATIVE PERCENT (BEAKER) (test 76 % ztto=301) LYMPHOCYTES RELATIVE PERCENT (BEAKER) (test 15 % ktti=124) MONOCYTES RELATIVE PERCENT (BEAKER) (test 7 % zukk=312) EOSINOPHILS RELATIVE PERCENT (BEAKER) (test 1 % yima=480) BASOPHILS RELATIVE PERCENT (BEAKER) (test 1 % vrph=111) NEUTROPHILS ABSOLUTE COUNT (BEAKER) (test 7.15 K/ L 1.56-6.13 cbgh=089) LYMPHOCYTES ABSOLUTE COUNT (BEAKER) (test 1.45 K/ L 1.18-3.74 xvwf=321) MONOCYTES ABSOLUTE COUNT (BEAKER) (test 0.70 K/ L 0.24-0.36 bwrl=726) EOSINOPHILS ABSOLUTE COUNT (BEAKER) (test 0.05 K/ L 0.04-0.36 xiew=871) BASOPHILS ABSOLUTE COUNT (BEAKER) (test 0.05 K/ L 0.01-0.08 gudu=594) IMMATURE GRANULOCYTES-RELATIVE PERCENT (BEAKER) 1 % 0-1 (test jgii=2968) MYOCARD IMAGING, MULTI, PHARM, [id number] 14:11:00Please do D SPECT camera for this patient Reason for exam:->Chest PainFINAL REPORT PROCEDURE: Rest/Stress MYOCARDIAL PERFUSION SPECT with regadenoson \XA9\ CPT CODE: 81990 INDICATION: Chest pain, acute, nonspecific, low probability [...] Normal extracardiac tracer distribution. 6. No previous [facility] study for comparison. NONINVASIVE RISK STRATIFICATION: The above findings are considered low risk (<1% annual mortality rate) based on the following criterion:- Normal or small myocardial perfusion defect at rest or with stress(JACC. 2012;59(9):857-81.) Signed: Shweta Lockhart Verified Date/Time: 12/04/2016 14:11:13 Reading Location: [address] Reading Room RAD, SPINE, SCOLIOSIS STUDY, 2 OR 3 [id number] 16:17:00Reason for exam:->scoliosis of lumbar spine, RLE [...] MDReport Verified Date/Time: 12/03/2016 16:17:14 Reading Location: [facility] Radiology ReadingRoom MR, BRAIN, [id number] 09:02:00FINAL REPORT MRI brain with and without contrast Comparison: None Reason for exam: Neoplasm, MANAGER SCHEDULING primary, calcified meningioma Discussion: Multiplanar MR imaging of the brain was provided iyp-zic-rtsj IV gadolinium administration using T1, T2, FLAIR, [...] Rodriguez Verified Date/Time: 2016 09:02:27 Reading Location: [address] Neuro Reading Room [id number] 05:45:00 Test Item Value Reference Range Comments MAGNESIUM (BEAKER) (test stdm=998) 1.8 mg/dL 1.6-2.6 BASIC METABOLIC [id number] 05:45:00 Test Item Value Reference Range Comments SODIUM (BEAKER) (test 136 meq/L 136-145 biat=041) POTASSIUM (BEAKER) (test 3.8 meq/L 3.5-5.1 jjvq=994) CHLORIDE (BEAKER) (test 102 meq/L 98-107 edrv=114) CO2 (BEAKER) (test 28 meq/L 22-29 sgdj=307) BLOOD UREA NITROGEN 11 mg/dL 7-21 (BEAKER) (test cfpu=994) CREATININE (BEAKER) (test 0.53 mg/dL 0.57-1.25 ufsp=603) GLUCOSE RANDOM (BEAKER) 89 mg/dL 70-105 (test zdyh=577) CALCIUM (BEAKER) (test 8.9 mg/dL 8.4-10.2 tpxw=490) EGFR (BEAKER) (test 113 mL/min/1.73 sq m ESTIMATED GFR IS NOT ktjk=7344) ACCURATE CREATININE CLEARANCE IN PREDICTING GLOMERULAR FILTRATION RATE. ESTIMATED GFR IS NOT APPLICABLE FOR DIALYSIS PATIENTS. CBC W/PLT COUNT & AUTO [id number] 05:31:00 Test Item Value Reference Range Comments WHITE BLOOD CELL COUNT (BEAKER) (test mnsv=979) 7.7 K/ L 3.5-10.5 RED BLOOD CELL COUNT (BEAKER) (test roja=808) 4.03 M/ L 3.93-5.22 HEMOGLOBIN (BEAKER) (test nuen=741) 12.3 GM/DL 11.2-15.7 HEMATOCRIT (BEAKER) (test wtah=724) 35.9 % 34.1-44.9 MEAN CORPUSCULAR VOLUME (BEAKER) (test xjkb=968) 89.1 fL 79.4-94.8 MEAN CORPUSCULAR HEMOGLOBIN (BEAKER) (test 30.5 pg 25.6-32.2 crza=842) MEAN CORPUSCULAR HEMOGLOBIN CONC (BEAKER) (test 34.3 GM/DL 32.2-35.5 txnv=973) RED CELL DISTRIBUTION WIDTH (BEAKER) (test 13.3 % 11.7-14.4 vsnq=359) PLATELET COUNT (BEAKER) (test tcha=041) 211 K/CU MM 150-450 MEAN PLATELET VOLUME (BEAKER) (test xpff=311) 10.3 fL 9.4-12.3 NUCLEATED RED BLOOD CELLS (BEAKER) (test 0 /100 WBC 0-0 aews=174) NEUTROPHILS RELATIVE PERCENT (BEAKER) (test 68 % coba=150) LYMPHOCYTES RELATIVE PERCENT (BEAKER) (test 23 % tqdf=120) MONOCYTES RELATIVE PERCENT (BEAKER) (test 8 % bfbs=498) EOSINOPHILS RELATIVE PERCENT (BEAKER) (test 1 % qvrj=633) BASOPHILS RELATIVE PERCENT (BEAKER) (test 0 % hijn=251) NEUTROPHILS ABSOLUTE COUNT (BEAKER) (test 5.23 K/ L 1.56-6.13 acwn=890) LYMPHOCYTES ABSOLUTE COUNT (BEAKER) (test 1.73 K/ L 1.18-3.74 mdas=627) MONOCYTES ABSOLUTE COUNT (BEAKER) (test 0.61 K/ L 0.24-0.36 wyzs=193) EOSINOPHILS ABSOLUTE COUNT (BEAKER) (test 0.04 K/ L 0.04-0.36 rmoh=345) BASOPHILS ABSOLUTE COUNT (BEAKER) (test 0.01 K/ L 0.01-0.08 qdxo=986) IMMATURE GRANULOCYTES-RELATIVE PERCENT (BEAKER) 1 % 0-1 (test nntx=5266) TROPONIN [id number] 01:13:00 Test Item Value Reference Range Comments TROPONIN I (BEAKER) (test bkxt=257) < ng/mL 0.00-0.03 Effective 02/15/2014: Reference Range [...] acidosis, acute neurological disease, and persistent tachyarrhythmia.TROPONIN [id number] 19:15: 00 Test Item Value Reference Range Comments TROPONIN I (BEAKER) (test kgxm=808) 0.01 ng/mL 0.00-0.03 Effective 02/15/2014: Reference Range [...] acidosis, acute neurological disease, and persistent tachyarrhythmia.TROPONIN [id number] 12:09: 00 Test Item Value Reference Range Comments TROPONIN I (BEAKER) (test jstk=435) 0.02 ng/mL 0.00-0.03 Effective 02/15/2014: Reference Range [...] renalfailure, acidosis, acute neurological disease, and persistent tachyarrhythmia.[id number] 06:18: 00 Test Item Value Reference Range Comments MAGNESIUM (BEAKER) (test fjmv=874) 1.7 mg/dL 1.6-2.6 BASIC METABOLIC [id number] 06:18:00 Test Item Value Reference Range Comments SODIUM (BEAKER) (test 133 meq/L 136-145 qqiw=481) POTASSIUM (BEAKER) (test 3.3 meq/L 3.5-5.1 mgel=931) CHLORIDE (BEAKER) (test 98 meq/L 98-107 jrsh=417) CO2 (BEAKER) (test 27 meq/L 22-29 pzyw=479) BLOOD UREA NITROGEN 10 mg/dL 7-21 (BEAKER) (test zqat=589) CREATININE (BEAKER) (test 0.57 mg/dL 0.57-1.25 rimo=096) GLUCOSE RANDOM (BEAKER) 92 mg/dL 70-105 (test ljjk=084) CALCIUM (BEAKER) (test 8.8 mg/dL 8.4-10.2 xejp=921) EGFR (BEAKER) (test 104 mL/min/1.73 sq m ESTIMATED GFR IS NOT uvrl=9868) ACCURATE CREATININE CLEARANCE IN PREDICTING GLOMERULAR FILTRATION RATE. ESTIMATED GFR IS NOT APPLICABLE FOR DIALYSIS PATIENTS. CBC W/PLT COUNT & AUTO [id number] 05:54:00 Test Item Value Reference Range Comments WHITE BLOOD CELL COUNT (BEAKER) (test mqhy=833) 9.1 K/ L 3.5-10.5 RED BLOOD CELL COUNT (BEAKER) (test woan=872) 4.08 M/ L 3.93-5.22 HEMOGLOBIN (BEAKER) (test ugxw=791) 12.3 GM/DL 11.2-15.7 HEMATOCRIT (BEAKER) (test gdfm=296) 35.9 % 34.1-44.9 MEAN CORPUSCULAR VOLUME (BEAKER) (test esdn=692) 88.0 fL 79.4-94.8 MEAN CORPUSCULAR HEMOGLOBIN (BEAKER) (test 30.1 pg 25.6-32.2 obxk=087) MEAN CORPUSCULAR HEMOGLOBIN CONC (BEAKER) (test 34.3 GM/DL 32.2-35.5 vfwb=403) RED CELL DISTRIBUTION WIDTH (BEAKER) (test 13.0 % 11.7-14.4 cizb=720) PLATELET COUNT (BEAKER) (test jice=555) 221 K/CU MM 150-450 MEAN PLATELET VOLUME (BEAKER) (test jrgq=670) 10.5 fL 9.4-12.3 NUCLEATED RED BLOOD CELLS (BEAKER) (test 0 /100 WBC 0-0 rdak=022) NEUTROPHILS RELATIVE PERCENT (BEAKER) (test 73 % vwks=521) LYMPHOCYTES RELATIVE PERCENT (BEAKER) (test 18 % plxe=667) MONOCYTES RELATIVE PERCENT (BEAKER) (test 9 % aats=112) EOSINOPHILS RELATIVE PERCENT (BEAKER) (test 0 % cnnx=976) BASOPHILS RELATIVE PERCENT (BEAKER) (test 0 % ugqm=937) NEUTROPHILS ABSOLUTE COUNT (BEAKER) (test 6.60 K/ L 1.56-6.13 yici=135) LYMPHOCYTES ABSOLUTE COUNT (BEAKER) (test 1.65 K/ L 1.18-3.74 tqat=775) MONOCYTES ABSOLUTE COUNT (BEAKER) (test 0.77 K/ L 0.24-0.36 cgym=975) EOSINOPHILS ABSOLUTE COUNT (BEAKER) (test 0.02 K/ L 0.04-0.36 dxfw=938) BASOPHILS ABSOLUTE COUNT (BEAKER) (test 0.01 K/ L 0.01-0.08 dwur=967) IMMATURE GRANULOCYTES-RELATIVE PERCENT (BEAKER) 1 % 0-1 (test cein=6690) [id number] 10:28:00 Test Item Value Reference Range Comments MAGNESIUM (BEAKER) (test dsru=771) 1.6 mg/dL 1.6-2.6 BASIC METABOLIC [id number] 10:28:00 Test Item Value Reference Range Comments SODIUM (BEAKER) (test 130 meq/L 136-145 oqdf=437) POTASSIUM (BEAKER) (test 3.8 meq/L 3.5-5.1 eeus=444) CHLORIDE (BEAKER) (test 97 meq/L 98-107 srby=537) CO2 (BEAKER) (test 25 meq/L 22-29 rgdf=970) BLOOD UREA NITROGEN 14 mg/dL 7-21 (BEAKER) (test gvcc=612) CREATININE (BEAKER) (test 0.64 mg/dL 0.57-1.25 tfbj=472) GLUCOSE RANDOM (BEAKER) 216 mg/dL 70-105 (test cqye=876) CALCIUM (BEAKER) (test 8.8 mg/dL 8.4-10.2 dgcu=898) EGFR (BEAKER) (test 91 mL/min/1.73 sq m ESTIMATED GFR IS NOT xioh=8185) ACCURATE CREATININE CLEARANCE IN PREDICTING GLOMERULAR FILTRATION RATE. ESTIMATED GFR IS NOT APPLICABLE FOR DIALYSIS PATIENTS. LIPID [id number] 10:28:00 Test Item Value Reference Range Comments TRIGLYCERIDES (BEAKER) (test ftce=034) 66 mg/dL CHOLESTEROL (BEAKER) (test ahhi=171) 170 mg/dL HDL CHOLESTEROL (BEAKER) (test zhsk=836) 58 mg/dL LDL CHOLESTEROL CALCULATED (BEAKER) (test 99 mg/dL bfrz=014) Triglyceride Reference Range: Low Risk <150 Borderline 150- 199 High Risk 200-499 Very High Risk >=500Cholesterol Reference Range: Low Risk <200 Borderline 200-239 High Risk > 240HDL Cholesterol Reference Range: Low Risk >=60 High Risk <40LDL Cholesterol Reference Range: Optimal <100 Near Optimal 100-129 Borderline 130-159 High 160-189 Very High >=190PROTHROMBIN [id number] 10:22:00 Test Item Value Reference Range Comments PROTIME (BEAKER) (test mmeu=106) 14.2 seconds 11.7-14.7 INR (BEAKER) (test cmkk=927) 1.1 <=5.9 RECOMMENDED COUMADIN/WARFARIN INR THERAPY RANGESSTANDARD DOSE: 2.0 - 3.0 Includes: PROPHYLAXIS forvenous thrombosis, systemic embolization; TREATMENT for venous thrombosis and/or pulmonary embolus.HIGH RISK: Target INR is 2.5-3.5 for patients with mechanical heart valves.CBC W/PLT COUNT & AUTO [id number] 10:11:00 Test Item Value Reference Range Comments WHITE BLOOD CELL COUNT (BEAKER) (test nehs=726) 8.9 K/ L 3.5-10.5 RED BLOOD CELL COUNT (BEAKER) (test kbpa=570) 4.37 M/ L 3.93-5.22 HEMOGLOBIN (BEAKER) (test ryul=962) 13.4 GM/DL 11.2-15.7 HEMATOCRIT (BEAKER) (test nhtn=638) 38.4 % 34.1-44.9 MEAN CORPUSCULAR VOLUME (BEAKER) (test qaxn=378) 87.9 fL 79.4-94.8 MEAN CORPUSCULAR HEMOGLOBIN (BEAKER) (test 30.7 pg 25.6-32.2 ujbe=998) MEAN CORPUSCULAR HEMOGLOBIN CONC (BEAKER) (test 34.9 GM/DL 32.2-35.5 lfql=346) RED CELL DISTRIBUTION WIDTH (BEAKER) (test 13.0 % 11.7-14.4 qwgv=171) PLATELET COUNT (BEAKER) (test xddz=702) 245 K/CU MM 150-450 MEAN PLATELET VOLUME (BEAKER) (test wozl=679) 10.3 fL 9.4-12.3 NUCLEATED RED BLOOD CELLS (BEAKER) (test 0 /100 WBC 0-0 hakv=769) NEUTROPHILS RELATIVE PERCENT (BEAKER) (test 92 % igrz=379) LYMPHOCYTES RELATIVE PERCENT (BEAKER) (test 7 % aupp=412) MONOCYTES RELATIVE PERCENT (BEAKER) (test 1 % igzj=521) EOSINOPHILS RELATIVE PERCENT (BEAKER) (test 0 % bike=842) BASOPHILS RELATIVE PERCENT (BEAKER) (test 0 % atfh=292) NEUTROPHILS ABSOLUTE COUNT (BEAKER) (test 8.14 K/ L 1.56-6.13 oszs=537) LYMPHOCYTES ABSOLUTE COUNT (BEAKER) (test 0.58 K/ L 1.18-3.74 jcrr=937) MONOCYTES ABSOLUTE COUNT (BEAKER) (test 0.10 K/ L 0.24-0.36 jsof=127) EOSINOPHILS ABSOLUTE COUNT (BEAKER) (test 0.00 K/ L 0.04-0.36 yxso=880) BASOPHILS ABSOLUTE COUNT (BEAKER) (test 0.01 K/ L 0.01-0.08 chyp=447) IMMATURE GRANULOCYTES-RELATIVE PERCENT (BEAKER) 1 % 0-1 (test cnub=5097)
--- OUTSIDE RECORDS SUMMARY | 2019-04-18 17:51 | XMS REPORT ---
:1945 Author Organization eClinical[employer] Care Team Providers Name Role Phone Germain [facility] Provider Role Unavailable Allergies, Adverse Reactions, Alerts Substance Reaction Event Type Stadol anaphylaxis Drug Allergy Neurontin anaphylaxis Drug Allergy Ciprofloxacin Info Not Available Drug Allergy Problems Problem Type Condition Code Onset Dates Condition Status Assessment History of vertebral compression Z87.81 Active fracture Assessment Weakness R53.1 Active Assessment Sleep apnea, obstructive G47.33 Active Assessment Constipation K59.00 Active Assessment GERD (gastroesophageal reflux K21.9 Active disease) Assessment Anxiety F41.9 Active Assessment Venous insufficiency of both lower I87.2 Active extremities Problem Osteoporosis M81.0 Active Assessment Anemia due to other cause, not D64.89 Active classified Problem GERD (gastroesophageal reflux K21.9 Active disease) Assessment Status post fall Z91.81 Active Problem Anxiety F41.9 Active Problem Flu vaccine need Z23 Active Problem Allergic T78.40XA Active Problem Venous insufficiency of both lower I87.2 Active extremities Problem Anemia due to other cause, not D64.89 Active classified Assessment Chronic back pain M54.9 Active Assessment HTN (hypertension) I10 Active Problem Pruritic dermatitis L29.9 Active Assessment Osteoporosis M81.0 Active Problem Adjustment disorder, unspecified F43.20 Active [...] I10 Active Problem Anorexia R63.0 Active Problem Constipation K59.00 Active Medications Medication Code Code Instructions Start End Status Dosage System Date Date Prolia NDC 87536771822 60 MG/ML Active 60 mg Subcutaneous every 6 months Oxycodone HCl NDC 12718590447 15 MG Orally September Active 1 tablet as every 6 hrs 16, 2018 Calcium NDC 0 200 MG Orally Active 1 tablet Once a day Tizanidine HCl ND 63810419810 4 MG Oral Active TK 1 T PO QD PRN Pepto-Bismol ND 70448569755 524 MG/30ML Active 30 ml as Orally PRN needed Zanaflex ND 01842771537 4 MG Orally Active 1 tablet as Three times a needed day Vitamin D-3 ND 38355557057 5000 UNIT Active 1 tablet Orally Once a day Mupirocin ND 79500161361 2 % Externally Active 1 application Three times a to affected day area Meclizine HCl ND 47994937195 25 MG Orally June Active 1 tablet as Once a day 23, needed 2019 Spironolactone ND 10828633007 25 MG Orally Active 1 tablet Hydrocodone-Acet ND 96819043764 10-325 MG Dec Inactive 1 tablet as aminophen Orally every 6 04, needed hrs 2019 Nexium ND 74205447886 40 MG Orally Active 1 capsule Once a day Carafate ND 47440137260 1 GM Orally Active 1 TABLET 3-4 TIMES PER DAY Oxycodone HCl ND 32015234778 30 MG Orally Marie Active 1 tablet as every 4 hours 16, needed 2019 Results No Known Results Summary Purpose eClinicalWorks Submission
--- OUTSIDE RECORDS SUMMARY | 2019-04-18 17:51 | XMS REPORT ---
:1945 Author Organization eClinicalWorks Care Team Providers Name Role Phone [place], [facility] Provider Role Unavailable Allergies, Adverse Reactions, Alerts Substance Reaction Event Type Stadol anaphylaxis Drug Allergy Neurontin anaphylaxis Drug Allergy Ciprofloxacin Info Not Available Drug Allergy Problems Problem Type Condition Code Onset Dates Condition Status Problem Anxiety F41.9 Active Problem Flu vaccine need Z23 Active Problem Allergic T78.40XA Active Problem Venous insufficiency of both lower I87.2 Active extremities Assessment Diffuse otitis externa of right H60.311 Active ear, unspecified chronicity Problem Anemia due to other cause, not D64.89 Active classified Assessment Dermatitis of external ear L30.9 Active Problem Pruritic dermatitis L29.9 Active Problem Adjustment [...] GERD (gastroesophageal reflux K21.9 Active disease) Medications Medication Code Code Instructions Start End Status Dosage System Date Date Carafate ND 90329324049 1 GM Orally Active 1 TABLET 3-4 TIMES PER DAY Pepto-Bismol ND 44463838705 524 MG/30ML Active 30 ml as Orally PRN needed Calcium NDC 0 200 MG Orally Active 1 tablet Once a day Mupirocin ND 59091797284 2 % Externally Active 1 application Three times a to affected day area Spironolactone ND 25010921479 25 MG Orally Active 1 tablet Hydrocortisone ND 23745681142 1 % Externally Mar 09Feb Active 1 application Twice a day 2018 Nexium ND 13932621552 40 MG Orally Active 1 capsule Once a day Vitamin D-3 ND 11644308987 5000 UNIT Active 1 tablet Orally Once a day Prolia [facility] 46562171816 60 MG/ML Active 60 mg Subcutaneous every 6 months Meclizine HCl ND 57328631084 25 MG Orally June Active 1 tablet as Once a day 23, needed 2019 Zanaflex ND 26526417302 4 MG Orally Active 1 tablet as Three times a needed day Oxycodone HCl ND 33315342734 15 MG Orally September Active 1 tablet as every 6 hrs 16, needed 2018 Tizanidine HCl [facility] 94511685217 4 MG Oral Active TK 1 T PO QD PRN Neomycin-Polymyxi ND 64182521977 3.5-76289-3 Mar 09, Active 4 drops into n-HC Otic Three 2018 affected ear times a day Results No Known Results Summary Purpose eClinicalWorks Submission
[2019-04-18 20:00] LABS: Albumin 3.8 g/dL (3.4-5.0); Bilirubin Total 0.7 mg/dL (0.2-1.0); Potassium 4.3 mmol/L (3.5-5.1); Protein, Total 7.8 g/dL (6.4-8.2)
[2019-04-18 20:19] LABS: Absolute Lymphocytes (CBC) 1.1 K/uL (0.7-4.9); Basophils % 0.3 % (0-1.3); Hematocrit 36.3 % (36.0-45.0); Lymphocytes % 18.8 % (15.3-44.8); MPV 9.4 fL (7.6-11.3); RBC Red Blood Cell Count 4.48 M/uL (3.86-4.86)
--- NOTE | 2019-04-18 21:21 | ER ---
Nurse's Notes [facility] Name: Arianne Ambriz Age: 73 yrs Sex: Female : 1945 Arrival Date: 04/18/2019 Time: 17:50 Bed 19 Private MD: Stu Groves Diagnosis: Cellulitis of left lower limb Presentation: 04/18 18:00 Presenting complaint: Patient states: has a problem with swelling in both legs, usually iw affects left side more, also has itching with it, has been scratching and now thinks she needs antibiotics. Transition of care: patient was not received from another setting of care. Onset of symptoms was March 2019. Risk Assessment: Do you want to hurt yourself or someone else? Patient reports no desire to harm self or others. Initial Sepsis Screen: Does the patient meet any 2 criteria? No. Patient's initial sepsis screen is negative. Does the patient have a suspected source of infection? No. Patient's initial sepsis screen is negative. Care prior to arrival: None. 18:00 Method Of Arrival: Ambulatory iw 18:00 Acuity: THADDEUS 4 iw Triage Assessment: 18:05 General: Appears in no apparent distress. comfortable, Behavior is cooperative, bp appropriate for age, anxious. Pain: Complains of pain in right leg and left leg. EENT: No deficits noted. Neuro: No deficits noted. Cardiovascular: No deficits noted. Respiratory: No deficits noted. GI: No signs and/or symptoms were reported involving the gastrointestinal system. : No signs and/or symptoms were reported regarding the genitourinary system. Derm: Reports itching. Musculoskeletal: Swelling present in right leg and left leg. Historical: - Allergies: 18:05 Ciprofloxacin (DIZZINESS); iw 18:05 Erythromycin; iw 18:05 Levaquin; iw 18:05 Neurontin; iw 18:05 Stadol; (cardiac arrest); iw 18:05 TETRACYCLINES; iw - Home Meds: 18:05 atenolol 25 mg Oral tab 0.5 tab once daily [Active]; atenolol 50 mg Oral tab PRN iw [Active]; Flonase 50 mcg/actuation Nasal spsn 1 spray 2 times per day [Active]; morphine 30 mg Oral TbER 1 tab every 6 hours [Active]; Nexium 40 mg Oral cpDR 1 cap once daily [Active]; oxycodone 30 mg Oral TR12 [Active]; - PMHx: 18:05 Arthritis; Back pain; William hip bursitis; Chronic pain; Complication of anesthesia; DVT; iw GERD; Hypertension; - PSHx: 18:05 Knee surgery; hand; Carpal Tunnel Repair; iw - Ebola Screening: : Patient negative for fever greater than or equal to 101.5 degrees Fahrenheit, and additional compatible Ebola Virus Disease symptoms Patient denies exposure to infectious person Patient denies travel to an Ebola-affected area in the 21 days before illness onset No symptoms or risks identified at this time. Screenin:42 Abuse screen: Denies threats or abuse. Denies injuries from another. Nutritional iw screening: No deficits noted. Tuberculosis screening: No symptoms or risk factors identified. Fall Risk None identified. Assessment: 18:42 General: Appears in no apparent distress. Behavior is calm, cooperative. Pain: iw Complains of pain in left leg. Neuro: Level of Consciousness is awake, alert, obeys commands, Oriented to person, place, time, situation, Moves all extremities. Full function. Cardiovascular: Patient's skin is warm and dry. Respiratory: Respiratory effort is even, unlabored, Respiratory pattern is regular. GI: No signs and/or symptoms were reported involving the gastrointestinal system. Derm: Skin is intact, is fragile, pt has mild redness to left logan area, mild amount of swelling to BLE. Musculoskeletal: Range of motion: intact in all extremities. 19:10 Reassessment: PROVIDER AT B/S FOR EVAL. PT NOW STATES S/S x "YEARS". bp Vital Signs: 18:05 BP 155 / 79; Pulse 91; Resp 16; Temp 98.4; Pulse Ox 99% on R/A; Pain 5/10; iw 19:10 BP 153 / 96; Pulse 92; Resp 16; Pulse Ox 99% ; bp 21:43 BP 131 / 83; Pulse 85; Resp 18; Temp 98.1; Pulse Ox 100% on R/A; dm5 ED Course: 17:50 Patient arrived in ED. mr 17:51 Stu Groves DO is Private Physician. mr 17:59 Nico Ogden PA is PHCP. [facility] 17:59 Marietta Chapman MD is Attending Physician. [facility] 18:04 Triage completed. iw 18:05 Arm band placed on. iw 18:32 Poli Sumner, RN is Primary Nurse. bp 18:38 Primary Nurse role handed off by Poli Sumner, RN sg 18:38 Valdemar Calix, RN is Primary Nurse. sg 18:43 No provider procedures requiring assistance completed. iw 18:49 Patient has correct armband on for positive identification. bp 20:35 US Extremity Venous Unilateral Ltd In Process Unspecified. EDMS 21:20 Stu Groves DO is Referral Physician. jmm 21:42 Patient did not have IV access during this emergency room visit. dm5 Administered Medications: No medications were administered Outcome: 21:20 Discharge ordered by MD. jmm 21:41 Discharged to home ambulatory. dm5 21:41 Condition: good 21:41 Discharge instructions given to patient, family, Instructed on discharge instructions, follow up and referral plans. medication usage, Demonstrated understanding of instructions, follow-up care, medications, Prescriptions given X 2. 21:43 Patient left the ED. dm5 Signatures: Dispatcher [employer] EDLA Elva Soni, RN RN dm Valdemar Calix, RN RN Nico Ogden PA PA Arianne Barreto Irene RN RN Poli Sumner, RN RN bp
--- NOTE | 2019-04-18 21:21 | EDPHYS ---
Physician Documentation [facility] Name: Arianne Ambriz Age: 73 yrs Sex: Female : 1945 Arrival Date: 04/18/2019 Time: 17:50 Bed 19 Private MD: Germain [facility] ED Physician Marietta Chapman HPI: 04/18 19:19 This 73 yrs old Female presents to ER via Ambulatory with complaints of Leg jmm Swelling. 19:19 The patient presents with pain, that is acute, swelling. Onset: The symptoms/episode jmm began/occurred gradually, at an unknown time. Modifying factors: The symptoms are alleviated by nothing. This is a 73 year old female with a history of chf, that presents to the ED with complaints of left lower leg redness and swelling with unknown onset. Denies fever or chills. . Historical: - Allergies: 18:05 Ciprofloxacin (DIZZINESS); iw 18:05 Erythromycin; iw 18:05 Levaquin; iw 18:05 Neurontin; iw 18:05 Stadol; (cardiac arrest); iw 18:05 TETRACYCLINES; iw - Home Meds: 18:05 atenolol 25 mg Oral tab 0.5 tab once daily [Active]; atenolol 50 mg Oral tab PRN iw [Active]; Flonase 50 mcg/actuation Nasal spsn 1 spray 2 times per day [Active]; morphine 30 mg Oral TbER 1 tab every 6 hours [Active]; Nexium 40 mg Oral cpDR 1 cap once daily [Active]; oxycodone 30 mg Oral TR12 [Active]; - PMHx: 18:05 Arthritis; Back pain; William hip bursitis; Chronic pain; Complication of anesthesia; DVT; iw GERD; Hypertension; - PSHx: 18:05 Knee surgery; hand; Carpal Tunnel Repair; iw - Ebola Screening: : Patient negative for fever greater than or equal to 101.5 degrees Fahrenheit, and additional compatible Ebola Virus Disease symptoms Patient denies exposure to infectious person Patient denies travel to an Ebola-affected area in the 21 days before illness onset No symptoms or risks identified at this time. ROS: 19:19 Constitutional: Negative for fever, chills, and weight loss, Cardiovascular: Negative jmm for chest pain, palpitations, and edema, Respiratory: Negative for shortness of breath, cough, wheezing, and pleuritic chest pain. 19:19 MS/extremity: Positive for erythema, pain, swelling. 19:19 All other systems are negative. Exam: 19:19 Constitutional: This is a well developed, well nourished patient who is awake, alert, jmm and in no acute distress. Head/Face: atraumatic. Eyes: EOMI, no conjunctival erythema appreciated ENT: Moist Mucus Membranes Neck: Trachea midline, Supple Chest/axilla: Normal chest wall appearance and motion. Cardiovascular: Regular rate and rhythm. No edema appreciated Respiratory: Normal respirations, no respiratory distress appreciated Abdomen/GI: Non distended, soft Back: Normal ROM 19:19 Musculoskeletal/extremity: erythema and induration appreciated to the left lower leg, swelling noted, induration is appreciated, dorsalis pulse appreciated, compartments are soft, NVI. 19:19 Skin: erythema noted to the left lower leg, mildly ttp. 19:19 Neuro: Orientation: is normal, Mentation: is normal, Memory: is normal. 19:19 Psych: Behavior/mood is pleasant, cooperative. Vital Signs: 18:05 BP 155 / 79; Pulse 91; Resp 16; Temp 98.4; Pulse Ox 99% on R/A; Pain 5/10; iw 19:10 BP 153 / 96; Pulse 92; Resp 16; Pulse Ox 99% ; bp 21:43 BP 131 / 83; Pulse 85; Resp 18; Temp 98.1; Pulse Ox 100% on R/A; dm5 MDM: 18:40 Patient medically screened. [facility] 21:19 Data reviewed: vital signs, nurses notes. Counseling: I had a detailed discussion with [facility] the patient and/or guardian regarding: the historical points, exam findings, and any diagnostic results supporting the discharge/admit diagnosis, lab results, radiology results, the need for outpatient follow up, smoking cessation. ED course: Patient is alert and non toxic in appearance in the ED. Labs normal, no DVT. Patient prescribed oral abx and otherwise given strict return precautions. Patient understood and agrees with the plan of care. . 04/18 19:17 Order name: CBC with Diff; Complete Time: 20:26 [facility] 04/18 19:17 Order name: CMP; Complete Time: 20:06 [facility] 04/18 19:17 Order name: Procalcitonin; Complete Time: 20:23 [facility] 04/18 19:17 Order name: Lactate; Complete Time: 20:06 [facility] 04/18 19:17 Order name: Saline Lock; Complete Time: 20:13 [facility] 04/18 19:19 Order name: US Extremity Venous Unilateral Ltd; Complete Time: 21:37 [facility] Administered Medications: No medications were administered Disposition: 04/19 15:49 Co-signature as Attending Physician, Marietta Chapman MD. ma2 Disposition: 04/18/19 21:20 Discharged to Home. Impression: Cellulitis of left lower limb. - Condition is Stable. - Discharge Instructions: Cellulitis, Adult. - Prescriptions for Augmentin 875- 125 mg Oral Tablet - take 1 tablet by ORAL route every 12 hours for 10 days; 20 tablet. Bactrim DS 800- 160 mg Oral Tablet - take 1 tablet by ORAL route every 12 hours for 10 days; 20 tablet. - Medication Reconciliation Form, Thank You Letter, Antibiotic Education, Prescription Opioid Use form. - Follow up: Stu Groves DO; When: 2 - 3 days; Reason: Recheck today's complaints, Continuance of care, Re-evaluation by your physician. Signatures: Dispatcher [employer] Elva Jones RN RN dm5 Mickail, Joel, PA PA [facility] Jayde Broussard RN RN iw Alzahri, Mohammad, MD MD ma2 Corrections: (The following items were deleted from the chart) 04/18 21:43 21:20 04/18/2019 21:20 Discharged to Home. Impression: Cellulitis of left lower limb. dm5 Condition is Stable. Forms are Medication Reconciliation Form, Thank You Letter, Antibiotic Education, Prescription Opioid Use. Follow up: Stu Groves; When: 2 - 3 days; Reason: Recheck today's complaints, Continuance of care, Re-evaluation by your physician. [facility]
--- NOTE | 2019-04-18 21:34 | RAD REPORT ---
EXAM DESCRIPTION: US - Extremity Venous Uni Ltd - 04/18/2019 8:35 pm CLINICAL HISTORY: Left leg pain and swelling COMPARISON: None. TECHNIQUE: Real-time sonographic evaluation of the left lower extremity deep venous system was perfo rmed. FINDINGS: Normal compressibility, flow augmentation, phasic flow and spontaneous flow are identified in the left lower extremity common femoral, superficial femoral, popliteal and posterior tibial vein s. No intraluminal filling defects seen. IMPRESSION: No DVT in the left lower extremity.
[2019-04-18 22:47] VITALS: TEMP 98.4; O2SAT 99
[2019-04-18 22:48] VITALS: BP 153/96
== END 2019-04-18 21:43 | disposition home or self-care (01) ==
LOC: ER 17:46
DX: L03.116 Cellulitis of left lower limb (principal); Z88.6 Allergy status to analgesic agent; Z88.2 Allergy status to sulfonamides; Z88.1 Allergy status to other antibiotic agents; K21.9 Gastro-esophageal reflux disease without esophagitis; I10 Essential (primary) hypertension
CPT/HCPCS: 36415; 80053; 83605; 84145; 85025; 93971; 99283

== ENCOUNTER 2019-05-07 20:12 | Emergency (ER) | payer OTHER, BC ==
--- OUTSIDE RECORDS SUMMARY | 2019-05-07 20:17 | XMS REPORT ---
:1945 Author Organization [employer] Care Team Providers Name Role Phone Stu Groves Provider Role Unavailable Allergies No Known Allergies Problems Problem Type Condition Code Onset Dates Condition Status Problem Anxiety F41.9 Active Problem Flu vaccine need Z23 Active Problem Allergic T78.40XA Active Problem Venous insufficiency of both lower I87.2 Active extremities Assessment Venous insufficiency of both lower I87.2 [...]
--- OUTSIDE RECORDS SUMMARY | 2019-05-07 20:17 | XMS REPORT ---
:1945 Author Organization [employer] Care Team Providers Name Role Phone Germain [facility] Provider Role Unavailable Allergies, Adverse Reactions, Alerts [...] Status Dosage System Date Date Prolia NDC 07509948823 60 MG/ML Active 60 mg Subcutaneous every 6 months Oxycodone HCl NDC 78746457817 15 MG Orally September Active 1 tablet as every 6 hrs 16, 2018 Calcium NDC 0 200 MG Orally Active 1 tablet Once a day Tizanidine HCl ND 34312755299 4 MG Oral Active TK 1 T PO QD PRN Pepto-Bismol ND 29114221012 524 MG/30ML Active 30 ml as Orally PRN needed Zanaflex ND 48107360428 4 MG Orally Active 1 tablet as Three times a needed day Vitamin D-3 ND 45406469242 5000 UNIT Active 1 tablet Orally Once a day Mupirocin ND 14338583864 2 % Externally Active 1 application Three times a to affected day area Meclizine HCl ND 17761392398 25 MG Orally June Active 1 tablet as Once a day 23, needed 2019 Spironolactone ND 29836052275 25 MG Orally Active 1 tablet Hydrocodone-Acet ND 67264640304 10-325 MG Dec Inactive 1 tablet as aminophen Orally every 6 04, needed hrs 2019 Nexium ND 81773460652 40 MG Orally Active 1 capsule Once a day Carafate ND 81718256023 1 GM Orally Active 1 TABLET 3-4 TIMES PER DAY Oxycodone HCl ND 43507915108 30 MG Orally Marie Active 1 tablet as every 4 hours 16, needed 2019 Results No Known Results Summary Purpose [employer] Submission
--- OUTSIDE RECORDS SUMMARY | 2019-05-07 20:17 | XMS REPORT ---
:1945 Author Organization [employer] Care Team Providers Name Role Phone Groves, [facility] Provider Role Unavailable Allergies, Adverse Reactions, Alerts [...] Status Dosage System Date Date Carafate ND 63772081838 1 GM Orally Active 1 TABLET 3-4 TIMES PER DAY Pepto-Bismol ND 43855768982 524 MG/30ML Active 30 ml as Orally PRN needed Calcium NDC 0 200 MG Orally Active 1 tablet Once a day Mupirocin ND 55656464978 2 % Externally Active 1 application Three times a to affected day area Spironolactone ND 83851675490 25 MG Orally Active 1 tablet Hydrocortisone ND 01121273545 1 % Externally Mar 09Feb Active 1 application Twice a day 2018 Nexium ND 86837331407 40 MG Orally Active 1 capsule Once a day Vitamin D-3 ND 92447913620 5000 UNIT Active 1 tablet Orally Once a day Prolia [facility] 34651063749 60 MG/ML Active 60 mg Subcutaneous every 6 months Meclizine HCl ND 58248804308 25 MG Orally June Active 1 tablet as Once a day 23, needed 2019 Zanaflex ND 35356028570 4 MG Orally Active 1 tablet as Three times a needed day Oxycodone HCl ND 81722377263 15 MG Orally September Active 1 tablet as every 6 hrs 16, needed 2018 Tizanidine HCl [facility] 56777250214 4 MG Oral Active TK 1 T PO QD PRN Neomycin-Polymyxi ND 04497236657 3.5-05790-5 Mar 09, Active 4 drops into n-HC Otic Three 2018 affected ear times a day Results No Known Results Summary Purpose [employer]ClinicalWorks Submission
--- OUTSIDE RECORDS SUMMARY | 2019-05-07 20:17 | XMS REPORT ---
:1945 [facility] Address [address] [place] [id number] Care Team Providers Name Role Phone NISHA [...] PATIENT LUMBAR, INITIAL 08:42:00 performed->L4-5Reason for ID: [id number] exam:->COMPRESSION FRACTURE HISTORY: L4 and L5 wedge [...] MDReport Verified Date/Time: 12/11/2016 08:42:31 Reading Location: [place] [address] Angio Body Reading Room AND CREATININE 2016-12-08 06:18:00 Test Item Value Reference Range Comments BLOOD UREA NITROGEN 14 mg/dL 7-21 (BEAKER) (test roai=057) CREATININE (BEAKER) (test 0.58 mg/dL 0.57-1.25 ehjj=970) EGFR (BEAKER) (test 102 mL/min/1.73 sq m ESTIMATED GFR IS NOT gpjb=9939) ACCURATE CREATININE CLEARANCE IN PREDICTING GLOMERULAR FILTRATION RATE. ESTIMATED GFR IS NOT APPLICABLE FOR DIALYSIS PATIENTS. CBC (HEMOGRAM ONLY)2016-12-08 05:52:00 Test Item Value Reference Range Comments WHITE BLOOD CELL COUNT (BEAKER) (test okwv=600) 9.9 K/ L 3.5-10.5 RED BLOOD CELL COUNT (BEAKER) (test zvzt=121) 3.95 M/ L 3.93-5.22 HEMOGLOBIN (BEAKER) (test lxva=196) 11.9 GM/DL 11.2-15.7 HEMATOCRIT (BEAKER) (test pakk=422) 36.8 % 34.1-44.9 MEAN CORPUSCULAR VOLUME (BEAKER) (test rnlr=217) 93.2 fL 79.4-94.8 MEAN CORPUSCULAR HEMOGLOBIN (BEAKER) (test 30.1 pg 25.6-32.2 xytp=287) MEAN CORPUSCULAR HEMOGLOBIN CONC (BEAKER) (test 32.3 GM/DL 32.2-35.5 wauj=123) RED CELL DISTRIBUTION WIDTH (BEAKER) (test 13.5 % 11.7-14.4 jutl=157) PLATELET COUNT (BEAKER) (test yutl=351) 282 K/CU MM 150-450 MEAN PLATELET VOLUME (BEAKER) (test tcan=942) 10.4 fL 9.4-12.3 NUCLEATED RED BLOOD CELLS (BEAKER) (test 0 /100 WBC 0-0 gczr=321) BASIC METABOLIC [id number] 06:49:00 Test Item Value Reference Range Comments SODIUM (BEAKER) (test 136 meq/L 136-145 jkmk=587) POTASSIUM (BEAKER) (test 4.0 meq/L 3.5-5.1 auhx=748) CHLORIDE (BEAKER) (test 103 meq/L 98-107 tbnc=661) CO2 (BEAKER) (test 27 meq/L 22-29 pkat=087) BLOOD UREA NITROGEN 15 mg/dL 7-21 (BEAKER) (test orii=731) CREATININE (BEAKER) (test 0.60 mg/dL 0.57-1.25 cgjm=290) GLUCOSE RANDOM (BEAKER) 96 mg/dL 70-105 (test mgeu=431) CALCIUM (BEAKER) (test 9.7 mg/dL 8.4-10.2 zqqj=267) EGFR (BEAKER) (test 98 mL/min/1.73 sq m ESTIMATED GFR IS NOT jwzk=3612) ACCURATE CREATININE CLEARANCE IN PREDICTING GLOMERULAR FILTRATION RATE. ESTIMATED GFR IS NOT APPLICABLE FOR DIALYSIS PATIENTS. PROTHROMBIN TIME/[id number] 06:31:00 Test Item Value Reference Range Comments PROTIME (BEAKER) (test rmfg=613) 13.4 seconds 11.7-14.7 INR (BEAKER) (test bntt=020) 1.0 <=5.9 RECOMMENDED COUMADIN/WARFARIN INR THERAPY RANGESSTANDARD DOSE: 2.0 - 3.0 Includes: PROPHYLAXIS forvenous thrombosis, systemic embolization; TREATMENT for venous thrombosis and/or pulmonary embolus.HIGH RISK: Target INR is 2.5-3.5 for patients with mechanical heart valves.[id number] 06:31:00 Test Item Value Reference Range Comments PARTIAL THROMBOPLASTIN TIME (BEAKER) (test 26.2 seconds 22.5-36.0 qljq=066) CBC W/PLT COUNT & AUTO [id number] 06:23:00 Test Item Value Reference Range Comments WHITE BLOOD CELL COUNT (BEAKER) (test odcc=381) 9.5 K/ L 3.5-10.5 RED BLOOD CELL COUNT (BEAKER) (test atrg=031) 4.03 M/ L 3.93-5.22 HEMOGLOBIN (BEAKER) (test ffhh=498) 12.3 GM/DL 11.2-15.7 HEMATOCRIT (BEAKER) (test ufoq=441) 37.0 % 34.1-44.9 MEAN CORPUSCULAR VOLUME (BEAKER) (test mjdw=155) 91.8 fL 79.4-94.8 MEAN CORPUSCULAR HEMOGLOBIN (BEAKER) (test 30.5 pg 25.6-32.2 bkyz=771) MEAN CORPUSCULAR HEMOGLOBIN CONC (BEAKER) (test 33.2 GM/DL 32.2-35.5 rqab=113) RED CELL DISTRIBUTION WIDTH (BEAKER) (test 13.6 % 11.7-14.4 fpvp=310) PLATELET COUNT (BEAKER) (test njea=823) 297 K/CU MM 150-450 MEAN PLATELET VOLUME (BEAKER) (test iczj=868) 10.2 fL 9.4-12.3 NUCLEATED RED BLOOD CELLS (BEAKER) (test 0 /100 WBC 0-0 bttx=071) NEUTROPHILS RELATIVE PERCENT (BEAKER) (test 76 % nbag=723) LYMPHOCYTES RELATIVE PERCENT (BEAKER) (test 15 % rdff=196) MONOCYTES RELATIVE PERCENT (BEAKER) (test 7 % clgl=942) EOSINOPHILS RELATIVE PERCENT (BEAKER) (test 1 % pdpz=606) BASOPHILS RELATIVE PERCENT (BEAKER) (test 1 % wbif=893) NEUTROPHILS ABSOLUTE COUNT (BEAKER) (test 7.15 K/ L 1.56-6.13 fxda=994) LYMPHOCYTES ABSOLUTE COUNT (BEAKER) (test 1.45 K/ L 1.18-3.74 uhco=929) MONOCYTES ABSOLUTE COUNT (BEAKER) (test 0.70 K/ L 0.24-0.36 boss=988) EOSINOPHILS ABSOLUTE COUNT (BEAKER) (test 0.05 K/ L 0.04-0.36 qxyt=396) BASOPHILS ABSOLUTE COUNT (BEAKER) (test 0.05 K/ L 0.01-0.08 qmbp=552) IMMATURE GRANULOCYTES-RELATIVE PERCENT (BEAKER) 1 % 0-1 (test oyqu=4734) MYOCARD IMAGING, MULTI, PHARM, [id number] 14:11:00Please do D SPECT camera for this patient Reason for exam:->Chest PainFINAL REPORT PROCEDURE: Rest/Stress MYOCARDIAL PERFUSION SPECT with regadenoson \XA9\ CPT CODE: 78544 INDICATION: Chest pain, acute, nonspecific, low probability [...] tracer distribution. 6. No previous [facility] study for comparison. NONINVASIVE RISK STRATIFICATION: The above findings are considered low risk (<1% annual mortality rate) based on the following criterion:- Normal or small myocardial perfusion defect at rest or with stress(JACC. 2012;59(9):857-81.) Signed: Shweta Lockhart Verified Date/Time: 12/04/2016 14:11:13 Reading Location: [address] Reading Room RAD, SPINE, SCOLIOSIS STUDY, 2 OR 3 [id number] 16:17:00Reason for exam:->scoliosis of lumbar spine, RLE [...] MDReport Verified Date/Time: 12/03/2016 16:17:14 Reading Location: [facility] Radiology ReadingRoom MR, BRAIN, [id number] 09:02:00FINAL REPORT MRI brain with and without contrast Comparison: None Reason for exam: Neoplasm, CHOCOLATIER primary, calcified meningioma Discussion: Multiplanar MR imaging of the brain was provided txa-mib-hgdl IV gadolinium administration using T1, T2, FLAIR, [...] Rodriguez Verified Date/Time: 2016 09:02:27 Reading Location: [address] Neuro Reading Room [id number] 05:45:00 Test Item Value Reference Range Comments MAGNESIUM (BEAKER) (test sghn=948) 1.8 mg/dL 1.6-2.6 BASIC METABOLIC [id number] 05:45:00 Test Item Value Reference Range Comments SODIUM (BEAKER) (test 136 meq/L 136-145 sauf=844) POTASSIUM (BEAKER) (test 3.8 meq/L 3.5-5.1 fgsc=148) CHLORIDE (BEAKER) (test 102 meq/L 98-107 xhxr=653) CO2 (BEAKER) (test 28 meq/L 22-29 cbtf=833) BLOOD UREA NITROGEN 11 mg/dL 7-21 (BEAKER) (test lpuz=261) CREATININE (BEAKER) (test 0.53 mg/dL 0.57-1.25 erbl=345) GLUCOSE RANDOM (BEAKER) 89 mg/dL 70-105 (test wmcg=876) CALCIUM (BEAKER) (test 8.9 mg/dL 8.4-10.2 ydlo=790) EGFR (BEAKER) (test 113 mL/min/1.73 sq m ESTIMATED GFR IS NOT semk=8053) ACCURATE CREATININE CLEARANCE IN PREDICTING GLOMERULAR FILTRATION RATE. ESTIMATED GFR IS NOT APPLICABLE FOR DIALYSIS PATIENTS. CBC W/PLT COUNT & AUTO [id number] 05:31:00 Test Item Value Reference Range Comments WHITE BLOOD CELL COUNT (BEAKER) (test aesa=810) 7.7 K/ L 3.5-10.5 RED BLOOD CELL COUNT (BEAKER) (test vrgq=020) 4.03 M/ L 3.93-5.22 HEMOGLOBIN (BEAKER) (test tnel=649) 12.3 GM/DL 11.2-15.7 HEMATOCRIT (BEAKER) (test ijso=352) 35.9 % 34.1-44.9 MEAN CORPUSCULAR VOLUME (BEAKER) (test uynw=502) 89.1 fL 79.4-94.8 MEAN CORPUSCULAR HEMOGLOBIN (BEAKER) (test 30.5 pg 25.6-32.2 izjq=975) MEAN CORPUSCULAR HEMOGLOBIN CONC (BEAKER) (test 34.3 GM/DL 32.2-35.5 mnhw=582) RED CELL DISTRIBUTION WIDTH (BEAKER) (test 13.3 % 11.7-14.4 qfjo=279) PLATELET COUNT (BEAKER) (test hxzz=583) 211 K/CU MM 150-450 MEAN PLATELET VOLUME (BEAKER) (test ubbk=000) 10.3 fL 9.4-12.3 NUCLEATED RED BLOOD CELLS (BEAKER) (test 0 /100 WBC 0-0 kepb=628) NEUTROPHILS RELATIVE PERCENT (BEAKER) (test 68 % xswp=997) LYMPHOCYTES RELATIVE PERCENT (BEAKER) (test 23 % rned=074) MONOCYTES RELATIVE PERCENT (BEAKER) (test 8 % zdha=847) EOSINOPHILS RELATIVE PERCENT (BEAKER) (test 1 % udkw=990) BASOPHILS RELATIVE PERCENT (BEAKER) (test 0 % ommn=474) NEUTROPHILS ABSOLUTE COUNT (BEAKER) (test 5.23 K/ L 1.56-6.13 jyyk=094) LYMPHOCYTES ABSOLUTE COUNT (BEAKER) (test 1.73 K/ L 1.18-3.74 qvwx=380) MONOCYTES ABSOLUTE COUNT (BEAKER) (test 0.61 K/ L 0.24-0.36 tqut=313) EOSINOPHILS ABSOLUTE COUNT (BEAKER) (test 0.04 K/ L 0.04-0.36 cqtc=275) BASOPHILS ABSOLUTE COUNT (BEAKER) (test 0.01 K/ L 0.01-0.08 mhmd=027) IMMATURE GRANULOCYTES-RELATIVE PERCENT (BEAKER) 1 % 0-1 (test tmmp=9778) TROPONIN [id number] 01:13:00 Test Item Value Reference Range Comments TROPONIN I (BEAKER) (test tseq=094) < ng/mL 0.00-0.03 Effective 02/15/2014: Reference Range [...] acidosis, acute neurological disease, and persistent tachyarrhythmia.TROPONIN [id number] 19:15: 00 Test Item Value Reference Range Comments TROPONIN I (BEAKER) (test jale=962) 0.01 ng/mL 0.00-0.03 Effective 02/15/2014: Reference Range [...] acidosis, acute neurological disease, and persistent tachyarrhythmia.TROPONIN [id number] 12:09: 00 Test Item Value Reference Range Comments TROPONIN I (BEAKER) (test ngql=459) 0.02 ng/mL 0.00-0.03 Effective 02/15/2014: Reference Range [...] renalfailure, acidosis, acute neurological disease, and persistent tachyarrhythmia.[id number] 06:18: 00 Test Item Value Reference Range Comments MAGNESIUM (BEAKER) (test omcy=502) 1.7 mg/dL 1.6-2.6 BASIC METABOLIC [id number] 06:18:00 Test Item Value Reference Range Comments SODIUM (BEAKER) (test 133 meq/L 136-145 xyfo=058) POTASSIUM (BEAKER) (test 3.3 meq/L 3.5-5.1 uakd=061) CHLORIDE (BEAKER) (test 98 meq/L 98-107 lgmb=840) CO2 (BEAKER) (test 27 meq/L 22-29 zdzt=078) BLOOD UREA NITROGEN 10 mg/dL 7-21 (BEAKER) (test flxu=174) CREATININE (BEAKER) (test 0.57 mg/dL 0.57-1.25 xqkm=139) GLUCOSE RANDOM (BEAKER) 92 mg/dL 70-105 (test shce=369) CALCIUM (BEAKER) (test 8.8 mg/dL 8.4-10.2 tdxx=580) EGFR (BEAKER) (test 104 mL/min/1.73 sq m ESTIMATED GFR IS NOT zrvu=2125) ACCURATE CREATININE CLEARANCE IN PREDICTING GLOMERULAR FILTRATION RATE. ESTIMATED GFR IS NOT APPLICABLE FOR DIALYSIS PATIENTS. CBC W/PLT COUNT & AUTO [id number] 05:54:00 Test Item Value Reference Range Comments WHITE BLOOD CELL COUNT (BEAKER) (test qkxq=329) 9.1 K/ L 3.5-10.5 RED BLOOD CELL COUNT (BEAKER) (test uqbp=213) 4.08 M/ L 3.93-5.22 HEMOGLOBIN (BEAKER) (test sczo=673) 12.3 GM/DL 11.2-15.7 HEMATOCRIT (BEAKER) (test jhnu=394) 35.9 % 34.1-44.9 MEAN CORPUSCULAR VOLUME (BEAKER) (test lfxx=200) 88.0 fL 79.4-94.8 MEAN CORPUSCULAR HEMOGLOBIN (BEAKER) (test 30.1 pg 25.6-32.2 dzzt=067) MEAN CORPUSCULAR HEMOGLOBIN CONC (BEAKER) (test 34.3 GM/DL 32.2-35.5 xaqy=195) RED CELL DISTRIBUTION WIDTH (BEAKER) (test 13.0 % 11.7-14.4 tolx=472) PLATELET COUNT (BEAKER) (test alfv=876) 221 K/CU MM 150-450 MEAN PLATELET VOLUME (BEAKER) (test bohj=381) 10.5 fL 9.4-12.3 NUCLEATED RED BLOOD CELLS (BEAKER) (test 0 /100 WBC 0-0 hnzo=819) NEUTROPHILS RELATIVE PERCENT (BEAKER) (test 73 % frbn=625) LYMPHOCYTES RELATIVE PERCENT (BEAKER) (test 18 % jrvr=431) MONOCYTES RELATIVE PERCENT (BEAKER) (test 9 % zmsf=322) EOSINOPHILS RELATIVE PERCENT (BEAKER) (test 0 % crmj=954) BASOPHILS RELATIVE PERCENT (BEAKER) (test 0 % qqwa=627) NEUTROPHILS ABSOLUTE COUNT (BEAKER) (test 6.60 K/ L 1.56-6.13 zdbu=867) LYMPHOCYTES ABSOLUTE COUNT (BEAKER) (test 1.65 K/ L 1.18-3.74 iyzz=308) MONOCYTES ABSOLUTE COUNT (BEAKER) (test 0.77 K/ L 0.24-0.36 ycfo=376) EOSINOPHILS ABSOLUTE COUNT (BEAKER) (test 0.02 K/ L 0.04-0.36 jvwl=775) BASOPHILS ABSOLUTE COUNT (BEAKER) (test 0.01 K/ L 0.01-0.08 lsjb=221) IMMATURE GRANULOCYTES-RELATIVE PERCENT (BEAKER) 1 % 0-1 (test guzi=8783) [id number] 10:28:00 Test Item Value Reference Range Comments MAGNESIUM (BEAKER) (test bzwk=216) 1.6 mg/dL 1.6-2.6 BASIC METABOLIC [id number] 10:28:00 Test Item Value Reference Range Comments SODIUM (BEAKER) (test 130 meq/L 136-145 ooup=618) POTASSIUM (BEAKER) (test 3.8 meq/L 3.5-5.1 jjcl=507) CHLORIDE (BEAKER) (test 97 meq/L 98-107 ewci=407) CO2 (BEAKER) (test 25 meq/L 22-29 jupy=316) BLOOD UREA NITROGEN 14 mg/dL 7-21 (BEAKER) (test udtu=984) CREATININE (BEAKER) (test 0.64 mg/dL 0.57-1.25 kfim=379) GLUCOSE RANDOM (BEAKER) 216 mg/dL 70-105 (test dnav=416) CALCIUM (BEAKER) (test 8.8 mg/dL 8.4-10.2 vfft=694) EGFR (BEAKER) (test 91 mL/min/1.73 sq m ESTIMATED GFR IS NOT svrv=4697) ACCURATE CREATININE CLEARANCE IN PREDICTING GLOMERULAR FILTRATION RATE. ESTIMATED GFR IS NOT APPLICABLE FOR DIALYSIS PATIENTS. LIPID [id number] 10:28:00 Test Item Value Reference Range Comments TRIGLYCERIDES (BEAKER) (test gtua=884) 66 mg/dL CHOLESTEROL (BEAKER) (test rels=408) 170 mg/dL HDL CHOLESTEROL (BEAKER) (test qcmt=655) 58 mg/dL LDL CHOLESTEROL CALCULATED (BEAKER) (test 99 mg/dL ukel=367) Triglyceride Reference Range: Low Risk <150 Borderline 150- 199 High Risk 200-499 Very High Risk >=500Cholesterol Reference Range: Low Risk <200 Borderline 200-239 High Risk > 240HDL Cholesterol Reference Range: Low Risk >=60 High Risk <40LDL Cholesterol Reference Range: Optimal <100 Near Optimal 100-129 Borderline 130-159 High 160-189 Very High >=190PROTHROMBIN TIME/[id number] 10:22:00 Test Item Value Reference Range Comments PROTIME (BEAKER) (test lvbk=810) 14.2 seconds 11.7-14.7 INR (BEAKER) (test spmw=891) 1.1 <=5.9 RECOMMENDED COUMADIN/WARFARIN INR THERAPY RANGESSTANDARD DOSE: 2.0 - 3.0 Includes: PROPHYLAXIS forvenous thrombosis, systemic embolization; TREATMENT for venous thrombosis and/or pulmonary embolus.HIGH RISK: Target INR is 2.5-3.5 for patients with mechanical heart valves.CBC W/PLT COUNT & AUTO [id number] 10:11:00 Test Item Value Reference Range Comments WHITE BLOOD CELL COUNT (BEAKER) (test dfjx=120) 8.9 K/ L 3.5-10.5 RED BLOOD CELL COUNT (BEAKER) (test wcxf=232) 4.37 M/ L 3.93-5.22 HEMOGLOBIN (BEAKER) (test qypu=366) 13.4 GM/DL 11.2-15.7 HEMATOCRIT (BEAKER) (test vzee=046) 38.4 % 34.1-44.9 MEAN CORPUSCULAR VOLUME (BEAKER) (test eltq=337) 87.9 fL 79.4-94.8 MEAN CORPUSCULAR HEMOGLOBIN (BEAKER) (test 30.7 pg 25.6-32.2 orso=657) MEAN CORPUSCULAR HEMOGLOBIN CONC (BEAKER) (test 34.9 GM/DL 32.2-35.5 zowh=626) RED CELL DISTRIBUTION WIDTH (BEAKER) (test 13.0 % 11.7-14.4 qngh=554) PLATELET COUNT (BEAKER) (test dfyl=824) 245 K/CU MM 150-450 MEAN PLATELET VOLUME (BEAKER) (test vxbw=363) 10.3 fL 9.4-12.3 NUCLEATED RED BLOOD CELLS (BEAKER) (test 0 /100 WBC 0-0 cfer=546) NEUTROPHILS RELATIVE PERCENT (BEAKER) (test 92 % chgt=550) LYMPHOCYTES RELATIVE PERCENT (BEAKER) (test 7 % urdn=090) MONOCYTES RELATIVE PERCENT (BEAKER) (test 1 % vvpf=896) EOSINOPHILS RELATIVE PERCENT (BEAKER) (test 0 % gale=719) BASOPHILS RELATIVE PERCENT (BEAKER) (test 0 % eifa=905) NEUTROPHILS ABSOLUTE COUNT (BEAKER) (test 8.14 K/ L 1.56-6.13 gkng=693) LYMPHOCYTES ABSOLUTE COUNT (BEAKER) (test 0.58 K/ L 1.18-3.74 xkyp=264) MONOCYTES ABSOLUTE COUNT (BEAKER) (test 0.10 K/ L 0.24-0.36 yrqo=429) EOSINOPHILS ABSOLUTE COUNT (BEAKER) (test 0.00 K/ L 0.04-0.36 ueam=617) BASOPHILS ABSOLUTE COUNT (BEAKER) (test 0.01 K/ L 0.01-0.08 uavf=621) IMMATURE GRANULOCYTES-RELATIVE PERCENT (BEAKER) 1 % 0-1 (test uumf=2745)
--- NOTE | 2019-05-07 23:04 | EDPHYS ---
Physician Documentation [facility] Name: Arianne Ambriz Age: 73 yrs Sex: Female : 1945 Arrival Date: 05/07/2019 Time: 20:16 Bed 18 Private MD: ED Physician Gonzalez Griffiths HPI: 05/07 21:23 This 73 yrs old Female presents to ER via Ambulatory with complaints of SKIN cp INFECTION ON LEGS. 21:23 The patient presents with pain, swelling, tenderness, erythema. cp 21:23 The complaints affect the medial aspect of left calf and left medial ankle. Context: cp concern for infection. Onset: The symptoms/episode began/occurred today. Associated signs and symptoms: Pertinent positives: calf tenderness, warmth, Pertinent negatives fever. Treatment prior to arrival includes: no previous treatment. Historical: - Allergies: 20:39 Ciprofloxacin (DIZZINESS); aj1 20:39 Erythromycin; aj1 20:39 Levaquin; aj1 20:39 Neurontin; aj1 20:39 Stadol; (cardiac arrest); aj1 20:39 TETRACYCLINES; aj1 - Home Meds: 20:39 atenolol 25 mg Oral tab 0.5 tab once daily [Active]; atenolol 50 mg Oral tab PRN aj1 [Active]; Flonase 50 mcg/actuation Nasal spsn 1 spray 2 times per day [Active]; morphine 30 mg Oral tab 1 tab every 6 hours [Active]; Nexium 40 mg Oral cpDR 1 cap once daily [Active]; oxycodone 30 mg Oral TR12 [Active]; - PMHx: 20:39 Arthritis; Back pain; William hip bursitis; Chronic pain; Complication of anesthesia; DVT; aj1 GERD; Hypertension; - Immunization history:: Adult Immunizations up to date. - Coronavirus screen:: The patient has NOT traveled to [place], [place], or [place] in the past 14 days. - Social history:: Smoking status: Patient/guardian denies using tobacco. - Ebola Screening: : Patient denies travel to an Ebola-affected area in the 21 days before illness onset. ROS: 21:30 Constitutional: Negative for body aches, chills, fever, poor PO intake. cp 21:30 Eyes: Negative for injury, pain, redness, and discharge. cp 21:30 Cardiovascular: Negative for chest pain, palpitations. 21:30 Respiratory: Negative for cough, shortness of breath, wheezing. 21:30 Abdomen/GI: Negative for abdominal pain. 21:30 MS/extremity: Positive for erythema, pain, swelling, tenderness, warmth, of the right lower leg and left lower leg, Negative for injury or acute deformity. 21:30 Skin: Negative for abscesses. 21:30 All other systems are negative. Exam: 21:35 Constitutional: The patient appears in no acute distress, alert, awake, cp non-diaphoretic, non-toxic, well developed, well nourished. 21:35 Head/Face: Normocephalic, atraumatic. cp 21:35 Eyes: Periorbital structures: appear normal, Conjunctiva: normal, no exudate, no cp injection, Sclera: no appreciated abnormality, Lids and lashes: appear normal, bilaterally. 21:35 ENT: External ear(s): are unremarkable, Nose: is normal, Mouth: Lips: moist, Oral mucosa: moist, Posterior pharynx: Airway: no evidence of obstruction, patent. 21:35 Chest/axilla: Inspection: normal. 21:35 Cardiovascular: Rate: normal, Rhythm: regular, Edema: is not appreciated. 21:35 Respiratory: the patient does not display signs of respiratory distress, Respirations: normal. 21:35 Skin: cellulitis, that is mild, irregular, on the left lower leg, noted superficial cp open wounds lower legs with excoriations. Vital Signs: 20:39 BP 155 / 76; Pulse 96; Resp 18; Temp 97.6; Pulse Ox 95% on R/A; Weight 62.6 kg (R); aj1 Height 5 ft. 4 in. (162.56 cm) (R); Pain 8/10; 21:00 BP 140 / 77; Pulse 97; Resp 16; Pulse Ox 97% on R/A; rv 21:45 BP 135 / 33; Pulse 94; Resp 17; Pulse Ox 95% on R/A; rv 22:46 BP 114 / 43; Pulse 85; Pulse Ox 99% on R/A; fu 23:21 BP 120 / 54; Pulse 81; Resp 17; Pulse Ox 98% on R/A; rv 20:39 Body Mass Index 23.69 (62.60 kg, 162.56 cm) aj1 MDM: 20:53 Patient medically screened. [facility] 22:53 Data reviewed: vital signs, nurses notes, radiologic studies, ultrasound. ED course: cp phone report of US negative for DVT. 23:00 Differential diagnosis: DVT, cellulitis, abscess. cp 05/07 21:23 Order name: US Extremity Venous W Compression William cp Administered Medications: 23:14 Drug: Bactroban Ointment 2 % 1 application Route: Topical; Site: affected area; fu 23:21 Follow up: Response: Medication administered at discharge. rv 23:15 Drug: Augmentin 875 mg Route: PO; fu 23:22 Follow up: Response: Medication administered at discharge. rv Disposition: 05/08 03:54 Co-signature as Attending Physician, Gonzalez Griffiths MD I agree with the assessment and [facility] plan of care. Disposition: 05/07/19 22:56 Discharged to Home. Impression: Local infection of the skin and subcutaneous tissue, unspecified - left lower leg. - Condition is Stable. - Discharge Instructions: Cellulitis, Adult. - Prescriptions for Augmentin 875- 125 mg Oral Tablet - take 1 tablet by ORAL route every 12 hours for 10 days; 20 tablet. Bactroban 2 % Topical Ointment - Apply to affected area 1 application by TOPICAL route every 12 hours; 30 gram. - Medication Reconciliation Form, Thank You Letter, Antibiotic Education, Prescription Opioid Use form. - Follow up: Private Physician; When: 2 - 3 days; Reason: Recheck today's complaints. Signatures: Dispatcher [employer] EDConcepcion Caro RN RN aj1 Gonzalez Griffiths MD MD cha Page, Corey, PA PA Douglas Callejas RN RN fu Vicente, Ronaldo, RN RN rv Corrections: (The following items were deleted from the chart) 05/07 23:25 22:56 05/07/2019 22:56 Discharged to Home. Impression: Local infection of the skin and rv subcutaneous tissue, unspecified - left lower leg. Condition is Stable. Forms are Medication Reconciliation Form, Thank You Letter, Antibiotic Education, Prescription Opioid Use. Follow up: Private Physician; When: 2 - 3 days; Reason: Recheck today's complaints. cp
--- NOTE | 2019-05-07 23:04 | ER ---
Nurse's Notes [facility] Name: Arianne Ambriz Age: 73 yrs Sex: Female : 1945 Arrival Date: 05/07/2019 Time: 20:16 Bed 18 Private MD: Diagnosis: Local infection of the skin and subcutaneous tissue, unspecified-left lower leg Presentation: 05/07 20:33 Presenting complaint: Patient states: "I've got a problem with both my legs, my family aj1 is Dr. Groves, I recently got a skin infection, I've been to the ER twice, I called this afternoon and he wasn't in the office so his nurse told me to come here. Last time I was here was April 19, they gave me antibiotics but it didn't clear it up. Its pretty ugly, streaking red and all that". Transition of care: patient was not received from another setting of care. Onset of symptoms was 2019. Risk Assessment: Do you want to hurt yourself or someone else? Patient reports no desire to harm self or others. Initial Sepsis Screen: Does the patient meet any 2 criteria? No. Patient's initial sepsis screen is negative. Does the patient have a suspected source of infection? Yes: Skin breakdown/wound. Care prior to arrival: None. 20:33 Method Of Arrival: Ambulatory aj1 20:33 Acuity: THADDEUS 3 aj1 Triage Assessment: 20:39 General: Appears in no apparent distress. comfortable, Behavior is calm, cooperative, aj1 appropriate for age. Pain: Complains of pain in left leg. Neuro: Level of Consciousness is awake, alert, obeys commands. Cardiovascular: Patient's skin is warm and dry. Respiratory: Airway is patent Respiratory effort is even, unlabored, Respiratory pattern is regular, symmetrical. Historical: - Allergies: 20:39 Ciprofloxacin (DIZZINESS); aj1 20:39 Erythromycin; aj1 20:39 Levaquin; aj1 20:39 Neurontin; aj1 20:39 Stadol; (cardiac arrest); aj1 20:39 TETRACYCLINES; aj1 - Home Meds: 20:39 atenolol 25 mg Oral tab 0.5 tab once daily [Active]; atenolol 50 mg Oral tab PRN aj1 [Active]; Flonase 50 mcg/actuation Nasal spsn 1 spray 2 times per day [Active]; morphine 30 mg Oral tab 1 tab every 6 hours [Active]; Nexium 40 mg Oral cpDR 1 cap once daily [Active]; oxycodone 30 mg Oral TR12 [Active]; - PMHx: 20:39 Arthritis; Back pain; William hip bursitis; Chronic pain; Complication of anesthesia; DVT; aj1 GERD; Hypertension; - Immunization history:: Adult Immunizations up to date. - Coronavirus screen:: The patient has NOT traveled to [place], [place], or [place] in the past 14 days. - Social history:: Smoking status: Patient/guardian denies using tobacco. - Ebola Screening: : Patient denies travel to an Ebola-affected area in the 21 days before illness onset. Screenin:15 Abuse screen: Denies threats or abuse. Nutritional screening: No deficits noted. fu Tuberculosis screening: No symptoms or risk factors identified. Fall Risk None identified. Assessment: 21:11 General: Appears in no apparent distress. comfortable, Behavior is calm, cooperative, fu appropriate for age, Reports pain and swelling to both legs. multiple skin lesions noted. Pain: Complains of pain in left leg Pain currently is 7 out of 10 on a pain scale. Neuro: Level of Consciousness is awake, alert, obeys commands, Oriented to person, place, time, situation, Housefellow are equal bilaterally Moves all extremities. Gait is unsteady, Speech is normal. Cardiovascular: Denies chest pain, nausea, vomiting. Respiratory: Airway is patent Breath sounds are clear bilaterally. Derm: Wound noted bilateral leg Bruising that is left leg. Derm: swelling noted to bilateral leg. 22:14 Reassessment: Patient appears in no apparent distress at this time. No changes from fu previously documented assessment. Patient and/or family updated on plan of care and expected duration. Pain level reassessed. Patient is alert, oriented x 3, equal unlabored respirations, skin warm/dry/pink. 23:23 Reassessment: Patient appears in no apparent distress at this time. Patient and/or rv family updated on plan of care and expected duration. Pain level reassessed. Patient is alert, oriented x 3, equal unlabored respirations, skin warm/dry/pink. KRISTIN PAGE EXPLAINED THE RESULT OF ULTRASOUND AND MANAGEMENT TO PATIENT AND SPOUSE AT BEDSIDE. PATIENT AGREED. ADMINISTERED MEDICINES BEFORE DISCHARGE. Vital Signs: 20:39 BP 155 / 76; Pulse 96; Resp 18; Temp 97.6; Pulse Ox 95% on R/A; Weight 62.6 kg (R); aj1 Height 5 ft. 4 in. (162.56 cm) (R); Pain 8/10; 21:00 BP 140 / 77; Pulse 97; Resp 16; Pulse Ox 97% on R/A; rv 21:45 BP 135 / 33; Pulse 94; Resp 17; Pulse Ox 95% on R/A; rv 22:46 BP 114 / 43; Pulse 85; Pulse Ox 99% on R/A; fu 23:21 BP 120 / 54; Pulse 81; Resp 17; Pulse Ox 98% on R/A; rv 20:39 Body Mass Index 23.69 (62.60 kg, 162.56 cm) aj1 ED Course: 20:16 Patient arrived in ED. jg7 20:38 Triage completed. aj1 20:39 Arm band placed on Patient placed in an exam room. aj1 20:46 Kristni Vazquez PA is PHCP. cp 20:46 Kristin Griffiths MD is Attending Physician. cp 20:56 Douglas Callejas RN is Primary Nurse. fu 21:15 Patient has correct armband on for positive identification. Bed in low position. Call fu light in reach. Pulse ox on. NIBP on. 22:26 US Extremity Venous W Compression William In Process Unspecified. EDMS 23:23 No provider procedures requiring assistance completed. Patient did not have IV access rv during this emergency room visit. Administered Medications: 23:14 Drug: Bactroban Ointment 2 % 1 application Route: Topical; Site: affected area; fu 23:21 Follow up: Response: Medication administered at discharge. rv 23:15 Drug: Augmentin 875 mg Route: PO; fu 23:22 Follow up: Response: Medication administered at discharge. rv Outcome: 22:56 Discharge ordered by . cp 23:24 Discharged to home ambulatory, with family. rv 23:24 Condition: good 23:24 Discharge instructions given to patient, family, Instructed on discharge instructions, follow up and referral plans. medication usage, Demonstrated understanding of instructions, follow-up care, medications, Prescriptions given X 2. 23:25 Patient left the ED. rv Signatures: Dispatcher [employer] EDDE Concepcion Griffith RN RN Kristin Barrios PA PA cp Umadhay, Felix, RN RN Seferino Pang, RN RN Jenni Lin jg7
[2019-05-07] MEDS ORDERED: AMOX/K CLAV 875 MG TAB ONE (23:07)
[2019-05-07] MEDS ORDERED: MUPIROCIN 2% OINT 22GM TUBE TOP ONE (23:11)
[2019-05-07 23:31] VITALS: TEMP 97.6
[2019-05-07 23:36] VITALS: BP 120/54; O2SAT 98
--- NOTE | 2019-05-08 08:12 | RAD REPORT ---
EXAM DESCRIPTION: USExtrem Venous W Compress Bil05/07/2019 10:25 pm CLINICAL HISTORY: Bilateral leg swelling COMPARISON: March 2019 FINDINGS: The common femoral, superficial femoral, popliteal and posterior tibial veins bilaterally are compressible and demonstrate augmentation. Doppler demonstrates good flow. IMPRESSION: No evidence of deep venous thrombosis involving either lower extremity.
== END 2019-05-07 23:25 | disposition home or self-care (01) ==
LOC: ER 20:12
DX: L03.116 Cellulitis of left lower limb (principal); L08.9 Local infection of the skin and subcutaneous tissue, unspecified; Z88.1 Allergy status to other antibiotic agents; K21.9 Gastro-esophageal reflux disease without esophagitis; I10 Essential (primary) hypertension
CPT/HCPCS: 93970; 99284

== ENCOUNTER 2019-08-03 23:02 | Emergency (ER) | payer OTHER, BC ==
--- OUTSIDE RECORDS SUMMARY | 2019-08-03 23:07 | XMS REPORT ---
:1945 Author Organization [employer] Care Team Providers Name Role Phone Germain Stu Provider Role Unavailable Allergies No Known Allergies Problems Problem Type Condition Code Onset Dates Condition Statu s Problem Anxiety F41.9 Active Problem Flu vaccine need Z23 Active Problem Allergic T78.40XA Active Problem Venous insufficiency of both lower I87.2 Active extremities Problem Anemia due to other cause, not D64.89 Active classified Problem Pruritic dermatitis L29.9 Active Problem Adjustment disorder, unspecified F43.20 Active Problem Other pulmonary embolism without I26.99 Active acute cor pulmonale, unspecified chronicity Problem Iron deficiency anemia, D50.9 Acti ve unspecified iron deficiency anemia type Problem History of fall Z91.81 Active Problem 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
--- OUTSIDE RECORDS SUMMARY | 2019-08-03 23:07 | XMS REPORT ---
:1945 Author Organization [facility] t Address [address] [place] [address] Dr. 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 cy of both lower lower extremities extremities Osteoporosi Osteoporosi Problem Active s s HTN HTN Problem Active (hypertensi (hypertensi on) on) Adjustment Adjustment Problem Active disorder, disorder, unspecified unspecified History of History of Problem Active fall fall Other Other Problem Active pulmonary pulmonary embolism embolism without without acute cor acute cor pulmonale, pulmonale, unspecified unspecified chronicity chronicity Anxiety Anxiety Problem Active GERD GERD Problem Active (gastroesop (gastroesop hageal hageal reflux reflux disease) disease) Flu vaccine Flu vaccine Problem Active need need Allergic Allergic Problem Active Chronic Chronic Problem Active back pain back pain Cavernous Cavernous Problem Active angioma angioma Anorexia Anorexia Problem Active Sleep Sleep Problem Active apnea, apnea, obstructive obstructive Constipatio Constipatio Problem Active n n Iron Iron Problem Active deficiency deficiency anemia, anemia, unspecified unspecified iron iron deficiency deficiency anemia type anemia type Anemia due Anemia due Problem Active to other to other cause, not cause, not classified classified Pruritic Pruritic Problem Active dermatitis dermatitis Varicose Varicose Problem Active veins of veins of bilateral bilateral lower lower extremities extremities with other with other complicatio complicatio ns ns Allergies, Adverse Reactions, Alerts Allergy Name Allergy Status Severity Reaction(s) Onset Inactive Treat ing Comments Type Date Date Clinician Sharron Adverse Active anaphylaxis Reaction Neurontin Adverse Active anaphylaxis Reaction Ciprofloxacin Adverse Active Info Not Reaction Available Medications Ordered Filled Start Stop Current Ordering Indication Dosage Frequency Signature Comments Components Medication Medication Date Date Medication? Clinician (SIG) Name Name Neomycin-Po Neomycin-Po 2019- Yes Stu 4 drop s lymyxin-HC lymyxin-HC 2-10 Grvoes into 00:00: affected 00 ear Oxycodone Oxycodone 2019-0 Yes Stu 1 tablet HCl HCl 7-16 [place] as needed 00:00: 00 Meclizine Meclizine 2019-0 Yes Stu 1 tablet HCl HCl 4-23 [place] as needed 00:00: 00 Nexium Nexium Yes Stu 1 capsule [facility] Carafate Carafate Yes Stu 1 TABLET [place] Pepto-Bismo Pepto-Bismo Yes Stu 30 ml a s l l [place] needed Zanaflex Zanaflex Yes Tsu 1 tablet [place] as needed Prolia Prolia Yes Stu 60 mg [facility] Calcium Calcium Yes Stu 1 tablet [facility] Vitamin D-3 Vitamin D-3 Yes Stu 1 table t [facility] Mupirocin Mupirocin Yes Stu 1 [place] applicatio n to affected area Spironolact Spironolact Yes Stu 1 table t one one [facility] Tizanidine Tizanidine Yes Stu TK 1 T PO HCl HCl [facility] QD PRN Encounters Start End Encounter Admission Attending Care Care Encounter Date/Time Date/Time Type Type Clinicians Facility Department ID 2019-07-22 2019-07-22 [facility] [id number] 12:29:00 12:29:00 [facility] 2019-05-28 2019-05-28 [facility] [id number] 08:12:00 08:12:00 [facility] 2019-05-20 2019-05-20 [facility] [id number] 09:00:00 09:00:00 [facility] 2019-04-28 2019-04-28 [facility] [id number] 16:26:00 16:26:00 [facility] 2019-03-09 2019-03-09 [facility] [id number] 16:45:00 16:45:00 [facility] 2019-03-03 2019-03-03 [facility] [id number] 15:38:00 15:38:00 [facility] 2019-03-03 2019-03-03 [facility] [id number] 13:00:00 13:00:00 [email or web address] 2019-01-27 2019-01-27 [facility] [id number] 11:24:00 11:24:00 [email or web address] 2019-01-07 2019-01-07 [facility] [id number] 11:56:00 11:56:00 [email or web address] 2019-01-04 2019-01-04 [facility] [id number] 16:00:00 16:00:00 [email or web address] 2018-12-23 2018-12-23 [facility] [id number] 14:16:00 14:16:00 [email or web address] 2018-12-17 2018-12-17 [facility] [id number] 11:29:00 11:29:00 [email or web address] 2018-12-14 2018-12-14 [facility] [id number] 16:12:00 16:12:00 [email or web address] 2018-12-02 2018-12-02 [facility] [id number] 14:45:00 14:45:00 [email or web address] 2018-11-23 2018-11-23 [facility] [id number] 10:51:00 10:51:00 [email or web address] 2018-10-20 2018-10-20 [facility] [id number] 15:40:00 15:40:00 [email or web address] 2018-08-11 2018-08-11 [facility] [id number] 08:59:00 08:59:00 [email or web address] 2018-08-10 2018-08-10 [facility] [id number] 15:55:00 15:55:00 [email or web address] 2018-07-29 2018-07-29 [facility] [id number] 09:31:00 09:31:00 [email or web address] 2018-07-21 2018-07-21 [facility] [id number] 11:45:00 11:45:00 [facility] 2018-07-14 2018-07-14 [facility] [id number] 13:31:00 13:31:00 [facility] 2018-07-01 2018-07-01 [facility] [id number] 14:10:00 14:10:00 [facility] 2018-07-01 2018-07-01 [facility] [id number] 11:45:00 11:45:00 [facility] 2018-06-04 2018-06-04 [facility] [id number] 11:30:00 11:30:00 [facility] 2018-03-18 2018-03-18 [facility] [id number] 14:08:00 14:08:00 [facility] 2018-01-12 2018-01-12 [facility] [id number] 08:45:00 08:45:00 [facility] 2018-01-05 2018-01-05 [facility] [id number] 14:00:00 14:00:00 [facility] Results Test Description Test Time Test Comments Text Results Atomic Results Result Comments LORENA, KYPHOPLASTY, 2016-12-11 What level(s) should be FINAL REPORT PATIENT LUMBAR, INITIAL 08:42:00 performed->L4-5Reason for ID: [id number] 22 exam:->COMPRESSION FRACTURE HISTORY: L4 a nd L5 wedge vertebral compression fractures and severe [...] MDReport Verified Date/Time: 12/11/2016 08:42:31 Reading Location: [place] [address] Angio Body Reading Room AND CREATININE 2016-12-08 06:18:00 Test Item Value Reference Range Comments BLOOD UREA NITROGEN 14 mg/dL 7-21 (BEAKER) (test code = 354) CREATININE (BEAKER) (test 0.58 mg/dL 0.57-1.25 code = 358) EGFR (BEAKER) (test code = 102 mL/min/1.73 sq m ESTIMATED GFR IS NOT 1092) ACCURATE CREA TININE CLEARANCE IN PRE DICTING GLOMERULAR FILTR ATION RATE. ESTIMATED GFR IS NOT APPLICABLE FOR D IALYSIS PATIENTS. CBC (HEMOGRAM ONLY)2016-12-08 05:52:00 Test Item Value Reference Range Comments WHITE BLOOD CELL COUNT (BEAKER) (test code = 9.9 K/ L 3.5 -10.5 775) RED BLOOD CELL COUNT (BEAKER) (test code = 761) 3.95 M/ L 3.93-5.22 HEMOGLOBIN (BEAKER) (test code = 410) 11.9 GM/DL 11.2-15.7 HEMATOCRIT (BEAKER) (test code = 411) 36.8 % 34.1-44.9 MEAN CORPUSCULAR VOLUME (BEAKER) (test code = 93.2 fL 79 .4-94.8 753) MEAN CORPUSCULAR HEMOGLOBIN (BEAKER) (test code 30.1 pg 25.6-32.2 = 751) MEAN CORPUSCULAR HEMOGLOBIN CONC (BEAKER) (test 32.3 GM/DL 32.2-35.5 code = 752) RED CELL DISTRIBUTION WIDTH (BEAKER) (test code 13.5 % 11.7-14.4 = 412) PLATELET COUNT (BEAKER) (test code = 756) 282 K/CU MM 150-45 0 MEAN PLATELET VOLUME (BEAKER) (test code = 754) 10.4 fL 9.4-12.3 NUCLEATED RED BLOOD CELLS (BEAKER) (test code = 0 /100 WBC 0-0 413) BASIC METABOLIC [id number] 06:49:00 Test Item Value Reference Range Comments SODIUM (BEAKER) (test 136 meq/L 136-145 code = 381) POTASSIUM (BEAKER) (test 4.0 meq/L 3.5-5.1 code = 379) CHLORIDE (BEAKER) (test 103 meq/L 98-107 code = 382) CO2 (BEAKER) (test code = 27 meq/L 22-29 355) BLOOD UREA NITROGEN 15 mg/dL 7-21 (BEAKER) (test code = 354) CREATININE (BEAKER) (test 0.60 mg/dL 0.57-1.25 code = 358) GLUCOSE RANDOM (BEAKER) 96 mg/dL 70-105 (test code = 652) CALCIUM (BEAKER) (test 9.7 mg/dL 8.4-10.2 code = 697) EGFR (BEAKER) (test code 98 mL/min/1.73 sq m EST IMATED GFR IS NOT = 1092) ACCURATE CREA TININE CLEARANCE IN PRE DICTING GLOMERULAR FILTR ATION RATE. ESTIMATED GFR IS NOT APPLICABLE F OR DIALYSIS PATIENT S. PROTHROMBIN TIME/[id number] 06:31:00 Test Item Value Reference Range Comments PROTIME (BEAKER) (test code = 759) 13.4 seconds 11.7-14.7 INR (BEAKER) (test code = 370) 1.0 <=5.9 RECOMMENDED COUMADIN/WARFARIN INR THERAPY RANGESSTANDARD DOSE: 2.0 - 3.0 Includes: PROPHYLAXIS forvenous thrombosis, systemic embolization; TREATMENT for venous thrombosis and/or pulmonary embolus.HIGH RISK: Target INR is 2.5-3.5 for patients with mechanical heart valves.[id number] 06:31:00 Test Item Value Reference Range Comments PARTIAL THROMBOPLASTIN TIME (BEAKER) (test code 26.2 seconds 22.5-36.0 = 760) CBC W/PLT COUNT & AUTO [id number] 06:23:00 Test Item Value Reference Range Comments WHITE BLOOD CELL COUNT (BEAKER) (test code = 9.5 K/ L 3.5 -10.5 775) RED BLOOD CELL COUNT (BEAKER) (test code = 761) 4.03 M/ L 3.93-5.22 HEMOGLOBIN (BEAKER) (test code = 410) 12.3 GM/DL 11.2-15.7 HEMATOCRIT (BEAKER) (test code = 411) 37.0 % 34.1-44.9 MEAN CORPUSCULAR VOLUME (BEAKER) (test code = 91.8 fL 79 .4-94.8 753) MEAN CORPUSCULAR HEMOGLOBIN (BEAKER) (test code 30.5 pg 25.6-32.2 = 751) MEAN CORPUSCULAR HEMOGLOBIN CONC (BEAKER) (test 33.2 GM/DL 32.2-35.5 code = 752) RED CELL DISTRIBUTION WIDTH (BEAKER) (test code 13.6 % 11.7-14.4 = 412) PLATELET COUNT (BEAKER) (test code = 756) 297 K/CU MM 150-45 0 MEAN PLATELET VOLUME (BEAKER) (test code = 754) 10.2 fL 9.4-12.3 NUCLEATED RED BLOOD CELLS (BEAKER) (test code = 0 /100 WBC 0-0 413) NEUTROPHILS RELATIVE PERCENT (BEAKER) (test code 76 % = 429) LYMPHOCYTES RELATIVE PERCENT (BEAKER) (test code 15 % = 430) MONOCYTES RELATIVE PERCENT (BEAKER) (test code = 7 % 431) EOSINOPHILS RELATIVE PERCENT (BEAKER) (test code 1 % = 432) BASOPHILS RELATIVE PERCENT (BEAKER) (test code = 1 % 437) NEUTROPHILS ABSOLUTE COUNT (BEAKER) (test code = 7.15 K/ L 1.56-6.13 670) LYMPHOCYTES ABSOLUTE COUNT (BEAKER) (test code = 1.45 K/ L 1.18-3.74 414) MONOCYTES ABSOLUTE COUNT (BEAKER) (test code = 0.70 K/ L 0 .24-0.36 415) EOSINOPHILS ABSOLUTE COUNT (BEAKER) (test code = 0.05 K/ L 0.04-0.36 416) BASOPHILS ABSOLUTE COUNT (BEAKER) (test code = 0.05 K/ L 0 .01-0.08 417) IMMATURE GRANULOCYTES-RELATIVE PERCENT (BEAKER) 1 % 0-1 (test code = 2801) MYOCARD IMAGING, MULTI, PHARM, [id number] 14:11:00Please do D SPECT camera for this patient Reason for exam:->Chest PainFINAL REPORT PROCEDURE: Rest/Stress MYOCARDIAL PERFUSION SPECT with regad enoson\XA9\ CPT CODE: 29517 INDICATION: Chest pain, acute, nonspecific, low probability [...] tracer distribution. 6. No previous [facility] study for comparison. NONINVASIVE RISK STRATIFICATION: The above findings are considered low risk (<1% annual mortality rate) based on the following criterion:- Normal or small myocardial perfusion defect at rest or with stres s(JACC. 2012;59(9):964-81.) Signed: Shweta Lockhart MDReport Verified Date/Time: 12/04/2016 14:11:13 Reading Location: [address] Reading Room RAD, SPINE, SCOLIOSIS STUDY, 2 OR 3 [id number] 16:17:00Reason for exam:- >scoliosis of lumbar spine, RLE weakness/radiculopathyFINAL REPORT TECHNIQUE: Frontal and lateral erect views of the spine dated 12/03 HISTORY: Scoliosis, right lower extremity weakness COMPARISON: [...] component in the lumbar spine. Signed: Kamaljit Medranoeport Verified Date/Time: 12/03/2016 16:17:14 Reading Location: [facility] Radiology ReadingRoom MR, BRAIN, [id number] 09:02:00FINAL REPORT MRI brain with and without contrast Comparison: None Reason for exam: Neoplasm, [employer] primary, calcified meningioma Discussion: Multiplanar MR imaging of the brain was provided bvg-wrh-bnot IV gadolinium administration using T1, T2, FLAIR, [...] pineal, sella, and craniocervical junction regions are unrem arkable. The visualized orbital contents, skullbase and surrounding soft tissues are unremarkable. There is right-sided sphenoid sinus mucosal thickening. Impressions: Chronic cerebral findings as discussed with symmetric medial temporal volume loss. No specific evidence of acute abnormality. No specific evidence for meningioma. Consider follow-up pre and postcontrast head CT to better evaluate for extra-axial calcification. Signed: Taylor Rodriguez Verified Date/Time: 12/03/2016 09:02:27 Reading Location: [facility] C0V Neuro Reading Room [id number] 05:45:00 Test Item Value Reference Range Comments MAGNESIUM (BEAKER) (test code = 627) 1.8 mg/dL 1.6-2.6 BASIC METABOLIC [id number] 05:45:00 Test Item Value Reference Range Comments SODIUM (BEAKER) (test 136 meq/L 136-145 code = 381) POTASSIUM (BEAKER) (test 3.8 meq/L 3.5-5.1 code = 379) CHLORIDE (BEAKER) (test 102 meq/L 98-107 code = 382) CO2 (BEAKER) (test code = 28 meq/L 22-29 355) BLOOD UREA NITROGEN 11 mg/dL 7-21 (BEAKER) (test code = 354) CREATININE (BEAKER) (test 0.53 mg/dL 0.57-1.25 code = 358) GLUCOSE RANDOM (BEAKER) 89 mg/dL 70-105 (test code = 652) CALCIUM (BEAKER) (test 8.9 mg/dL 8.4-10.2 code = 697) EGFR (BEAKER) (test code 113 mL/min/1.73 sq m ES TIMATED GFR IS NOT = 1092) ACCURATE CREA TININE CLEARANCE IN PRE DICTING GLOMERULAR FILTR ATION RATE. ESTIMATED GFR IS NOT APPLICABLE F OR DIALYSIS PATIENT S. CBC W/PLT COUNT & AUTO [id number] 05:31:00 Test Item Value Reference Range Comments WHITE BLOOD CELL COUNT (BEAKER) (test code = 7.7 K/ L 3.5 -10.5 775) RED BLOOD CELL COUNT (BEAKER) (test code = 761) 4.03 M/ L 3.93-5.22 HEMOGLOBIN (BEAKER) (test code = 410) 12.3 GM/DL 11.2-15.7 HEMATOCRIT (BEAKER) (test code = 411) 35.9 % 34.1-44.9 MEAN CORPUSCULAR VOLUME (BEAKER) (test code = 89.1 fL 79 .4-94.8 753) MEAN CORPUSCULAR HEMOGLOBIN (BEAKER) (test code 30.5 pg 25.6-32.2 = 751) MEAN CORPUSCULAR HEMOGLOBIN CONC (BEAKER) (test 34.3 GM/DL 32.2-35.5 code = 752) RED CELL DISTRIBUTION WIDTH (BEAKER) (test code 13.3 % 11.7-14.4 = 412) PLATELET COUNT (BEAKER) (test code = 756) 211 K/CU MM 150-45 0 MEAN PLATELET VOLUME (BEAKER) (test code = 754) 10.3 fL 9.4-12.3 NUCLEATED RED BLOOD CELLS (BEAKER) (test code = 0 /100 WBC 0-0 413) NEUTROPHILS RELATIVE PERCENT (BEAKER) (test code 68 % = 429) LYMPHOCYTES RELATIVE PERCENT (BEAKER) (test code 23 % = 430) MONOCYTES RELATIVE PERCENT (BEAKER) (test code = 8 % 431) EOSINOPHILS RELATIVE PERCENT (BEAKER) (test code 1 % = 432) BASOPHILS RELATIVE PERCENT (BEAKER) (test code = 0 % 437) NEUTROPHILS ABSOLUTE COUNT (BEAKER) (test code = 5.23 K/ L 1.56-6.13 670) LYMPHOCYTES ABSOLUTE COUNT (BEAKER) (test code = 1.73 K/ L 1.18-3.74 414) MONOCYTES ABSOLUTE COUNT (BEAKER) (test code = 0.61 K/ L 0 .24-0.36 415) EOSINOPHILS ABSOLUTE COUNT (BEAKER) (test code = 0.04 K/ L 0.04-0.36 416) BASOPHILS ABSOLUTE COUNT (BEAKER) (test code = 0.01 K/ L 0 .01-0.08 417) IMMATURE GRANULOCYTES-RELATIVE PERCENT (BEAKER) 1 % 0-1 (test code = 2801) TROPONIN [id number] 01:13:00 Test Item Value Reference Range Comments TROPONIN I (BEAKER) (test code = 397) < ng/mL 0.00-0.03 Effective 02/15/2014: Reference Range [...] acidosis, acute neurological disease, and persistent tachyarrhythmia.TROPONIN [id number] 19:15:00 Test Item Value Reference Range Comments TROPONIN I (BEAKER) (test code = 397) 0.01 ng/mL 0.00-0.03 Effective 02/15/2014: Reference Range [...] acidosis, acute neurological disease, and persistent tachyarrhythmia.TROPONIN [id number] 12:09:00 Test Item Value Reference Range Comments TROPONIN I (BEAKER) (test code = 397) 0.02 ng/mL 0.00-0.03 Effective 02/15/2014: Reference Range [...] renalfailure, acidosis, acute neurological disease, and persistent tachyarrhythmia.[id number] 06:18:00 Test Item Value Reference Range Comments MAGNESIUM (BEAKER) (test code = 627) 1.7 mg/dL 1.6-2.6 BASIC METABOLIC [id number] 06:18:00 Test Item Value Reference Range Comments SODIUM (BEAKER) (test 133 meq/L 136-145 code = 381) POTASSIUM (BEAKER) (test 3.3 meq/L 3.5-5.1 code = 379) CHLORIDE (BEAKER) (test 98 meq/L 98-107 code = 382) CO2 (BEAKER) (test code = 27 meq/L 22-29 355) BLOOD UREA NITROGEN 10 mg/dL 7-21 (BEAKER) (test code = 354) CREATININE (BEAKER) (test 0.57 mg/dL 0.57-1.25 code = 358) GLUCOSE RANDOM (BEAKER) 92 mg/dL 70-105 (test code = 652) CALCIUM (BEAKER) (test 8.8 mg/dL 8.4-10.2 code = 697) EGFR (BEAKER) (test code 104 mL/min/1.73 sq m ES TIMATED GFR IS NOT = 1092) ACCURATE CREA TININE CLEARANCE IN PRE DICTING GLOMERULAR FILTR ATION RATE. ESTIMATED GFR IS NOT APPLICABLE F OR DIALYSIS PATIENT S. CBC W/PLT COUNT & AUTO [id number] 05:54:00 Test Item Value Reference Range Comments WHITE BLOOD CELL COUNT (BEAKER) (test code = 9.1 K/ L 3.5 -10.5 775) RED BLOOD CELL COUNT (BEAKER) (test code = 761) 4.08 M/ L 3.93-5.22 HEMOGLOBIN (BEAKER) (test code = 410) 12.3 GM/DL 11.2-15.7 HEMATOCRIT (BEAKER) (test code = 411) 35.9 % 34.1-44.9 MEAN CORPUSCULAR VOLUME (BEAKER) (test code = 88.0 fL 79 .4-94.8 753) MEAN CORPUSCULAR HEMOGLOBIN (BEAKER) (test code 30.1 pg 25.6-32.2 = 751) MEAN CORPUSCULAR HEMOGLOBIN CONC (BEAKER) (test 34.3 GM/DL 32.2-35.5 code = 752) RED CELL DISTRIBUTION WIDTH (BEAKER) (test code 13.0 % 11.7-14.4 = 412) PLATELET COUNT (BEAKER) (test code = 756) 221 K/CU MM 150-45 0 MEAN PLATELET VOLUME (BEAKER) (test code = 754) 10.5 fL 9.4-12.3 NUCLEATED RED BLOOD CELLS (BEAKER) (test code = 0 /100 WBC 0-0 413) NEUTROPHILS RELATIVE PERCENT (BEAKER) (test code 73 % = 429) LYMPHOCYTES RELATIVE PERCENT (BEAKER) (test code 18 % = 430) MONOCYTES RELATIVE PERCENT (BEAKER) (test code = 9 % 431) EOSINOPHILS RELATIVE PERCENT (BEAKER) (test code 0 % = 432) BASOPHILS RELATIVE PERCENT (BEAKER) (test code = 0 % 437) NEUTROPHILS ABSOLUTE COUNT (BEAKER) (test code = 6.60 K/ L 1.56-6.13 670) LYMPHOCYTES ABSOLUTE COUNT (BEAKER) (test code = 1.65 K/ L 1.18-3.74 414) MONOCYTES ABSOLUTE COUNT (BEAKER) (test code = 0.77 K/ L 0 .24-0.36 415) EOSINOPHILS ABSOLUTE COUNT (BEAKER) (test code = 0.02 K/ L 0.04-0.36 416) BASOPHILS ABSOLUTE COUNT (BEAKER) (test code = 0.01 K/ L 0 .01-0.08 417) IMMATURE GRANULOCYTES-RELATIVE PERCENT (BEAKER) 1 % 0-1 (test code = 2801) [id number] 10:28:00 Test Item Value Reference Range Comments MAGNESIUM (BEAKER) (test code = 627) 1.6 mg/dL 1.6-2.6 BASIC METABOLIC [id number] 10:28:00 Test Item Value Reference Range Comments SODIUM (BEAKER) (test 130 meq/L 136-145 code = 381) POTASSIUM (BEAKER) (test 3.8 meq/L 3.5-5.1 code = 379) CHLORIDE (BEAKER) (test 97 meq/L 98-107 code = 382) CO2 (BEAKER) (test code = 25 meq/L 22-29 355) BLOOD UREA NITROGEN 14 mg/dL 7-21 (BEAKER) (test code = 354) CREATININE (BEAKER) (test 0.64 mg/dL 0.57-1.25 code = 358) GLUCOSE RANDOM (BEAKER) 216 mg/dL 70-105 (test code = 652) CALCIUM (BEAKER) (test 8.8 mg/dL 8.4-10.2 code = 697) EGFR (BEAKER) (test code 91 mL/min/1.73 sq m EST IMATED GFR IS NOT = 1092) ACCURATE CREA TININE CLEARANCE IN PRE DICTING GLOMERULAR FILTR ATION RATE. ESTIMATED GFR IS NOT APPLICABLE F OR DIALYSIS PATIENT S. LIPID [id number] 10:28:00 Test Item Value Reference Range Comments TRIGLYCERIDES (BEAKER) (test code = 540) 66 mg/dL CHOLESTEROL (BEAKER) (test code = 631) 170 mg/dL HDL CHOLESTEROL (BEAKER) (test code = 976) 58 mg/dL LDL CHOLESTEROL CALCULATED (BEAKER) (test code = 99 mg/dL 633) Triglyceride Reference Range: Low Risk <150 Borderline 150-199 High Risk 200-499 Very High Risk >=500Cholesterol Reference Range: Low Risk <200 Borderline 200-239 High Risk >240HDL Cholesterol Reference Range: Low Risk >=60 High Risk <40LDL Cholesterol Reference Range: Optimal <100 Near Optimal 100-129 Borderline 130-159 High 160-189 Very High >=190PROTHROMBIN [id number] 10:22:00 Test Item Value Reference Range Comments PROTIME (BEAKER) (test code = 759) 14.2 seconds 11.7-14.7 INR (BEAKER) (test code = 370) 1.1 <=5.9 RECOMMENDED COUMADIN/WARFARIN INR THERAPY RANGESSTANDARD DOSE: 2.0 - 3.0 Includes: PROPHYLAXIS forvenous thrombosis, systemic embolization; TREATMENT for venous thrombosis and/or pulmonary embolus.HIGH RISK: Target INR is 2.5-3.5 for patients with mechanical heart valves.CBC W/PLT COUNT & AUTO DIFFERENTIAL 2016-11-29 10:11:00 Test Item Value Reference Range Comments WHITE BLOOD CELL COUNT (BEAKER) (test code = 8.9 K/ L 3.5 -10.5 775) RED BLOOD CELL COUNT (BEAKER) (test code = 761) 4.37 M/ L 3.93-5.22 HEMOGLOBIN (BEAKER) (test code = 410) 13.4 GM/DL 11.2-15.7 HEMATOCRIT (BEAKER) (test code = 411) 38.4 % 34.1-44.9 MEAN CORPUSCULAR VOLUME (BEAKER) (test code = 87.9 fL 79 .4-94.8 753) MEAN CORPUSCULAR HEMOGLOBIN (BEAKER) (test code 30.7 pg 25.6-32.2 = 751) MEAN CORPUSCULAR HEMOGLOBIN CONC (BEAKER) (test 34.9 GM/DL 32.2-35.5 code = 752) RED CELL DISTRIBUTION WIDTH (BEAKER) (test code 13.0 % 11.7-14.4 = 412) PLATELET COUNT (BEAKER) (test code = 756) 245 K/CU MM 150-45 0 MEAN PLATELET VOLUME (BEAKER) (test code = 754) 10.3 fL 9.4-12.3 NUCLEATED RED BLOOD CELLS (BEAKER) (test code = 0 /100 WBC 0-0 413) NEUTROPHILS RELATIVE PERCENT (BEAKER) (test code 92 % = 429) LYMPHOCYTES RELATIVE PERCENT (BEAKER) (test code 7 % = 430) MONOCYTES RELATIVE PERCENT (BEAKER) (test code = 1 % 431) EOSINOPHILS RELATIVE PERCENT (BEAKER) (test code 0 % = 432) BASOPHILS RELATIVE PERCENT (BEAKER) (test code = 0 % 437) NEUTROPHILS ABSOLUTE COUNT (BEAKER) (test code = 8.14 K/ L 1.56-6.13 670) LYMPHOCYTES ABSOLUTE COUNT (BEAKER) (test code = 0.58 K/ L 1.18-3.74 414) MONOCYTES ABSOLUTE COUNT (BEAKER) (test code = 0.10 K/ L 0 .24-0.36 415) EOSINOPHILS ABSOLUTE COUNT (BEAKER) (test code = 0.00 K/ L 0.04-0.36 416) BASOPHILS ABSOLUTE COUNT (BEAKER) (test code = 0.01 K/ L 0 .01-0.08 417) IMMATURE GRANULOCYTES-RELATIVE PERCENT (BEAKER) 1 % 0-1 (test code = 2801)
--- OUTSIDE RECORDS SUMMARY | 2019-08-03 23:07 | XMS REPORT ---
:1945 Author Organization eClinicalWorks Care Team Providers Name Role Phone Germain [facility] Provider Role Unavailable Allergies, Adverse Reactions, Alerts Substance Reaction Event Type Stadol anaphylaxis Drug Allergy Neurontin anaphylaxis Drug Allergy Ciprofloxacin Info Not Available Drug Allergy Problems Problem Type Condition Code Onset Dates Condition Statu s Assessment History of vertebral compression Z87.81 Active fracture Assessment Weakness R53.1 Active Assessment Sleep apnea, obstructive G47.33 Act nikhil Assessment Constipation K59.00 Active Assessment GERD (gastroesophageal [...] Status Dosage System Date Date Prolia NDC 23443703578 60 MG/ML Active 60 mg Subcutaneous every 6 months Oxycodone HCl NDC 15981357391 15 MG Orally September Active 1 tablet as every 6 hrs 16, needed 2018 Calcium NDC 0 200 MG Orally Active 1 tablet Once a day Tizanidine HCl ND 06277805569 4 MG Oral Active TK 1 T PO QD PRN Pepto-Bismol ND 90929151750 524 MG/30ML Active 30 ml as Orally PRN needed Zanaflex ND 55935498078 4 MG Orally Active 1 table t as Three times a needed day Vitamin D-3 ND 14371782538 5000 UNIT Active 1 tabl et Orally Once a day Mupirocin ND 61039378429 2 % Externally Active 1 a pplication Three times a to affecte d day area Meclizine HCl ND 96961883919 25 MG Orally Mary Ann Active 1 tablet as Once a day 23, needed 2018 Spironolactone ND 21521969416 25 MG Orally Active 1 tablet Hydrocodone-Acet ND 75147589564 10-325 MG Dec Inactive 1 tablet as aminophen Orally every 6 04, needed hrs 2019 Nexium ND 78365144967 40 MG Orally Active 1 capsu le Once a day Carafate ND 15606184687 1 GM Orally Active 1 TABLE T 3-4 TIMES PER DAY Oxycodone HCl ND 34685055432 30 MG Orally Marie Active 1 tablet as every 4 hours 16, needed 2018 Results No Known Results Summary Purpose eClinicalWorks Submission
--- OUTSIDE RECORDS SUMMARY | 2019-08-03 23:07 | XMS REPORT ---
:1945 Author Organization eClinicalWorks Care Team Providers Name Role Phone Groves [facility] Provider Role Unavailable Allergies, Adverse Reactions, Alerts Substance Reaction Event Type Stadol anaphylaxis Drug Allergy Neurontin anaphylaxis Drug Allergy Ciprofloxacin Info Not Available Drug Allergy Problems Problem Type Condition Code Onset Dates Condition Statu s Assessment Varicose veins of bilateral lower I83.893 Active extremities with other complications Problem Constipation K59.00 Active Assessment Venous insufficiency I87.2 Active Problem Allergic T78.40XA Active Assessment Swelling of left lower extremity M79.89 Active Problem Flu vaccine need Z23 Active Problem Adjustment disorder, unspecified F43.20 Active Problem Other pulmonary embolism without I26.99 Active acute cor pulmonale, unspecified chronicity Problem Varicose veins of bilateral lower I83.893 Active extremities with other complications Problem Pruritic dermatitis L29.9 Active Problem Venous (peripheral) insufficiency I87.2 Active Problem Venous insufficiency I87.2 Active Assessment Cellulitis of left lower extremity L03.116 Active without foot Problem Iron deficiency anemia, D50.9 Acti ve unspecified iron deficiency anemia type Problem History of fall Z91.81 Active Problem Venous insufficiency of both lower I87.2 Active extremities Problem Anemia due to other cause, not D64.89 Active classified Problem GERD (gastroesophageal reflux K21.9 Active disease) Problem Anxiety F41.9 Active Problem HTN (hypertension) I10 Active Problem Osteoporosis M81.0 Active Problem Chronic back pain M54.9 Active Problem Anorexia R63.0 Active Problem Sleep apnea, obstructive G47.33 Act nikhil Problem 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 Medications Medication Code Code Instructions Start End Status Dosage System Date Date Vitamin D-3 ND 44027157404 5000 UNIT Active 1 tabl et Orally Once a day Calcium NDC 0 200 MG Orally Active 1 tablet Once a day Tizanidine HCl ND 82515656751 4 MG Oral Active TK 1 T PO QD PRN Oxycodone HCl ND 18061917564 15 MG Orally September Active 1 tablet as every 6 hrs 16, needed 2018 Pepto-Bismol ND 92041234359 524 MG/30ML Active 30 ml as Orally PRN needed Mupirocin ND 42161857787 2 % Externally Active 1 a pplication Three times a to affecte d day area Meclizine HCl ND 43508356805 25 MG Orally June Active 1 tablet as Once a day 23, needed 2018 Spironolactone ND 62902313410 25 MG Orally Active 1 tablet Zanaflex ND 30963347105 4 MG Orally Active 1 table t as Three times a needed day Neomycin-Polymyxi ND 99718994338 3.5-89999-9 Mar 09, Active 4 drops into n-HC Otic Three 2018 affected ear times a day Nexium ND 89906871043 40 MG Orally Active 1 capsu le Once a day Carafate ND 86436959381 1 GM Orally Active 1 TABLE T 3-4 TIMES PER DAY Prolia ND 13652289313 60 MG/ML Active 60 mg Subcutaneous every 6 months Results No Known Results Summary Purpose eClinicalWorks Submission
--- OUTSIDE RECORDS SUMMARY | 2019-08-03 23:07 | XMS REPORT ---
:1945 Author Organization eClinicalWorks Care Team Providers Name Role Phone Gro[place], [facility] Provider Role [...] classified Assessment Dermatitis of external ear L30.9 A ctive Problem Pruritic dermatitis L29.9 Active Problem Adjustment [...] Status Dosage System Date Date Carafate ND 46213698167 1 GM Orally Active 1 TABLE T 3-4 TIMES PER DAY Pepto-Bismol ND 32693303781 524 MG/30ML Active 30 ml as Orally PRN needed Calcium NDC 0 200 MG Orally Active 1 tablet Once a day Mupirocin ND 04655331607 2 % Externally Active 1 a pplication Three times a to affecte d day area Spironolactone ND 99920988768 25 MG Orally Active 1 tablet Hydrocortisone ND 94936128929 1 % Externally Dec 10, Dec Active 1 application Twice a day 2018 Nexium ND 32621975675 40 MG Orally Active 1 capsu le Once a day Vitamin D-3 ND 55841833769 5000 UNIT Active 1 tabl et Orally Once a day Prolia ND 57303713825 60 MG/ML Active 60 mg Subcutaneous every 6 months Meclizine HCl ND 64257723993 25 MG Orally June Active 1 tablet as Once a day 23, needed 2018 Zanaflex ND 35021160386 4 MG Orally Active 1 table t as Three times a needed day Oxycodone HCl ND 14122397635 15 MG Orally September Active 1 tablet as every 6 hrs 16, needed 2018 Tizanidine HCl ND 35294583523 4 MG Oral Active TK 1 T PO QD PRN Neomycin-Polymyxi ND 86667358343 3.5-96691-0 Mar 09, Active 4 drops into n-HC Otic Three 2018 affected ear times a day Results No Known Results Summary Purpose eClinicalWorks Submission
--- OUTSIDE RECORDS SUMMARY | 2019-08-03 23:08 | XMS REPORT ---
:1945 Author Organization eClinicalWorks Care Team Providers Name Role Phone Germain St[facility] Provider Role Unavailable Allergies No Known Allergies Problems Problem Type Condition Code Onset Dates Condition Statu s Problem Flu vaccine need Z23 Active Problem Adjustment disorder, unspecified F43.20 Active Problem Other pulmonary embolism without I26.99 Active acute cor pulmonale, unspecified chronicity Problem Varicose veins of bilateral lower I83.893 Active extremities with other complications Problem Venous (peripheral) insufficiency I87.2 Active Problem Pruritic dermatitis L29.9 Active Problem Venous insufficiency I87.2 Active Problem Iron deficiency anemia, D50.9 Acti ve [...] Sleep apnea, obstructive G47.33 Act nikhil Problem Constipation K59.00 Active Problem 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
--- OUTSIDE RECORDS SUMMARY | 2019-08-03 23:08 | XMS REPORT ---
[...] I87.2 Active Problem Pruritic dermatitis L29.9 Active Assessment Osteoporosis M81.0 Active Problem Venous insufficiency I87.2 Active Problem [...]
[2019-08-04 00:03] LABS: Absolute Lymphocytes (CBC) 1.1 K/uL (0.7-4.9); Basophils % 0.6 % (0-1.3); Hematocrit 37.8 % (36.0-45.0); Lymphocytes % 11.6 % (15.3-44.8); MPV 8.6 fL (7.6-11.3); RBC Red Blood Cell Count 4.82 M/uL (3.86-4.86)
[2019-08-04 00:39] LABS: Bilirubin Direct 0.3 mg/dL (0-0.2); Bilirubin Total 1.6 mg/dL (0.2-1.0); Potassium 4.1 mmol/L (3.5-5.1); Protein, Total 8.2 g/dL (6.4-8.2)
--- NOTE | 2019-08-04 02:57 | EDPHYS ---
Physician Documentation [facility] Name: Arianne Ambriz Age: 73 yrs Sex: Female : 1945 Arrival Date: 08/03/2019 Time: 23:09 Bed 20 Private MD: ED Physician Chalo Barrera HPI: 08/03 00:18 This 73 yrs old Female presents to ER via Ambulatory with complaints of tw4 Abdominal Pain, Decreased Appetite. 00:20 The patient presents with abdominal pain that is diffuse. Onset: The symptoms/episode tw4 began/occurred 3 day(s) ago. The symptoms do not radiate. Associated signs and symptoms: none. The symptoms are described as dull. Modifying factors: The symptoms are alleviated by nothing, the symptoms are aggravated by nothing. Severity of pain: At its worst the pain was moderate in the emergency department the pain is unchanged. The patient has not experienced similar symptoms in the past. Historical: - Allergies: 08/02 23:32 Ciprofloxacin (DIZZINESS); ll1 23:32 Levaquin; ll1 23:32 Neurontin; ll1 23:32 Stadol; (cardiac arrest); ll1 23:32 TETRACYCLINES; ll1 23:32 Erythromycin; ll1 23:32 gabapentin; ll1 23:32 butorphanol; ll1 - Home Meds: 08/03 00:10 atenolol 25 mg Oral tab 0.5 tab once daily [Active]; atenolol 50 mg Oral tab PRN mg2 [Active]; Flonase 50 mcg/actuation Nasal spsn 1 spray 2 times per day [Active]; morphine 30 mg Oral tab 1 tab every 6 hours [Active]; Nexium 40 mg Oral cpDR 1 cap once daily [Active]; oxycodone 30 mg Oral TR12 [Active]; - PMHx: 08/02 23:32 Arthritis; Back pain; William hip bursitis; Chronic pain; Complication of anesthesia; DVT; ll1 GERD; Hypertension; - PSHx: 23:32 back fractures x 3, shoulder/knee surgeries; ll1 - Immunization history:: Flu vaccine status is unknown. - Social history:: Smoking status: Patient/guardian denies using tobacco, the patient reports quitting approximately 30 years ago, Patient/guardian denies using alcohol, street drugs. ROS: 08/03 00:20 Constitutional: Negative for fever, chills, and weight loss, Eyes: Negative for injury, tw4 pain, redness, and discharge, Cardiovascular: Negative for chest pain, palpitations, and edema, Respiratory: Negative for shortness of breath, cough, wheezing, and pleuritic chest pain, Back: Negative for injury and pain, MS/Extremity: Negative for injury and deformity, Skin: Negative for injury, rash, and discoloration, Neuro: Negative for headache, weakness, numbness, tingling, and seizure. Abdomen/GI: Positive for abdominal pain, Negative for nausea and vomiting, nausea, vomiting, and diarrhea, nausea, vomiting, abdominal cramps, abdominal distension, anorexia, dysphagia, hematemesis, black/tarry stool, rectal pain. Exam: 00:21 Constitutional: This is a well developed, well nourished patient who is awake, alert, tw4 and in no acute distress. Head/Face: Normocephalic, atraumatic. Chest/axilla: Normal chest wall appearance and motion. Nontender with no deformity. No lesions are appreciated. Cardiovascular: Regular rate and rhythm with a normal S1 and S2. No gallops, murmurs, or rubs. Normal PMI, no JVD. No pulse deficits. Respiratory: Lungs have equal breath sounds bilaterally, clear to auscultation and percussion. No rales, rhonchi or wheezes noted. No increased work of breathing, no retractions or nasal flaring. Back: No spinal tenderness. No costovertebral tenderness. Full range of motion. Skin: Warm, dry with normal turgor. Normal color with no rashes, no lesions, and no evidence of cellulitis. MS/ Extremity: Pulses equal, no cyanosis. Neurovascular intact. Full, normal range of motion. Neuro: Awake and alert, GCS 15, oriented to person, place, time, and situation. Cranial nerves II-XII grossly intact. Motor strength 5/5 in all extremities. Sensory grossly intact. Cerebellar exam normal. Normal gait. 00:21 Abdomen/GI: Inspection: abdomen appears normal, Bowel sounds: normal, Palpation: mild abdominal tenderness, in all quadrants. Vital Signs: 08/02 23:28 BP 149 / 85; Pulse 95; Resp 18; Temp 98.6; Pulse Ox 98% ; Pain 9/10; ll1 08/03 02:15 BP 131 / 102; Pulse 89; Resp 18; Pulse Ox 100% on R/A; mg2 MDM: 08/02 23:41 Patient medically screened. 08/03 02:54 Differential diagnosis: cholecystitis, Cholelithiasis, Hepatitis, pancreatitis, Peptic tw4 Ulcer Disease, Pyelonephritis, Ureterolithiasis. Data reviewed: vital signs, nurses notes. Data reviewed: lab test result(s), CBC, hepatic panel, radiologic studies, CT scan. Data interpreted: Pulse oximetry: Interpretation: normal. Counseling: I had a detailed discussion with the patient and/or guardian regarding: the historical points, exam findings, and any diagnostic results supporting the discharge/admit diagnosis, lab results, radiology results. Special discussion: I discussed with the patient/guardian in detail that at this point there is no indication for admission to the hospital. It is understood, however, that if the symptoms persist or worsen the patient needs to return immediately for re-evaluation. 08/02 23:14 Order name: Basic Metabolic Panel; Complete Time: 02:11 [facility] 08/03 02:11 Interpretation: Normal except: NA 130; CL 95; GLUC 119; GFR 87. 08/02 23:14 Order name: CBC with Diff; Complete Time: 02:11 [facility] 08/03 02:12 Interpretation: Normal except: MCH 25.6; MCV 78.3; RDW 16.6; LYM% 11.6; CHRISTIAN% 83.0. 08/02 23:14 Order name: Creatinine for Radiology; Complete Time: 02:11 [facility] 08/03 02:12 Interpretation: Within normal limits: CRE 0.64. 08/02 23:14 Order name: Hepatic Function; Complete Time: 02:11 [facility] 08/03 02:12 Interpretation: Normal except: ALK 42; BILIT 1.6; BILID 0.3; GLOB 4.2; A/G 1.0. [facility] 08/02 23:14 Order name: Lipase; Complete Time: 02:11 [facility] 08/03 02:12 Interpretation: Within normal limits: LIP 49. [facility] 08/02 23:22 Order name: CT Abd/Pelvis - IV Contrast Only 08/02 23:14 Order name: IV Saline Lock; Complete Time: 00:05 [facility] 08/02 23:14 Order name: Labs collected and sent; Complete Time: 23:49 mg2 Administered Medications: No medications were administered Disposition: 08/04/19 02:56 Discharged to Home. Impression: Constipation, unspecified. - Condition is Stable. - Discharge Instructions: Abdominal Pain, Adult, High-Fiber Diet, Constipation, Adult, [id number]. - Prescriptions for Colace 100 mg Oral Tablet - take 1 tablet by ORAL route every 12 hours; 14 tablet. Miralax 17 gram/dose Oral - take 1 packet by ORAL route once daily dilute powder in 8 ounces of water or juice; 1 packet. - Medication Reconciliation Form, Thank You Letter, Antibiotic Education, Prescription Opioid Use form. - Follow up: Private Physician; When: Upon discharge from the Emergency Department; Reason: Recheck today's complaints, Continuance of care, Re-evaluation by your physician. - Problem is new. - Symptoms have improved. Signatures: Dispatcher [employer] EDMS Chalo Barrera MD MD tw4 Jose J Abernathy RN RN mg2 Lurdes Fatima RN RN ll1 Corrections: (The following items were deleted from the chart) 03:11 02:56 08/04/2019 02:56 Discharged to Home. Impression: Constipation, unspecified. mg2 Condition is Stable. Forms are Medication Reconciliation Form, Thank You Letter, Antibiotic Education, Prescription Opioid Use. Follow up: Private Physician; When: Upon discharge from the Emergency Department; Reason: Recheck today's complaints, Continuance of care, Re-evaluation by your physician. Problem is new. Symptoms have improved. tw4
--- NOTE | 2019-08-04 02:57 | ER ---
Nurse's Notes [facility] Name: Arianne Ambriz Age: 73 yrs Sex: Female : 1945 Arrival Date: 08/03/2019 Time: 23:09 Bed 20 Private MD: Diagnosis: Constipation, unspecified Presentation: 08/02 23:28 Chief complaint: Patient states: 1. LLE re-occurring cellulitis for past 1.5 years. ll1 Sent in by PCP. 2. Abdominal pain , CONLEY, and nausea since Friday night. Coronavirus screen: Proceed with normal triage. Patient denies a cough. Patient denies shortness of breath or difficulty breathing. Patient denies measured and/or subjective temperature greater than 100.4F prior to today's visit. Patient denies travel on a cruise ship or to a country the [facility] currently lists as an affected area. Patient denies contact with known and/or suspected case of COVID-19. Ebola Screen: Patient denies travel to an Ebola-affected area in the 21 days before illness onset. Initial Sepsis Screen: Does the patient meet any 2 criteria? HR > 90 bpm. No. Patient's initial sepsis screen is negative. Does the patient have a suspected source of infection? No. Patient's initial sepsis screen is negative. Risk Assessment: Do you want to hurt yourself or someone else? Patient reports no desire to harm self or others. Onset of symptoms was August 01, 2019. 23:28 Method Of Arrival: Ambulatory ll1 23:28 Acuity: THADDEUS 3 ll1 Historical: - Allergies: 23:32 Ciprofloxacin (DIZZINESS); ll1 23:32 Levaquin; ll1 23:32 Neurontin; ll1 23:32 Stadol; (cardiac arrest); ll1 23:32 TETRACYCLINES; ll1 23:32 Erythromycin; ll1 23:32 gabapentin; ll1 23:32 butorphanol; ll1 - Home Meds: 08/03 00:10 atenolol 25 mg Oral tab 0.5 tab once daily [Active]; atenolol 50 mg Oral tab PRN mg2 [Active]; Flonase 50 mcg/actuation Nasal spsn 1 spray 2 times per day [Active]; morphine 30 mg Oral tab 1 tab every 6 hours [Active]; Nexium 40 mg Oral cpDR 1 cap once daily [Active]; oxycodone 30 mg Oral TR12 [Active]; - PMHx: 08/02 23:32 Arthritis; Back pain; William hip bursitis; Chronic pain; Complication of anesthesia; DVT; ll1 GERD; Hypertension; - PSHx: 23:32 back fractures x 3, shoulder/knee surgeries; ll1 - Immunization history:: Flu vaccine status is unknown. - Social history:: Smoking status: Patient/guardian denies using tobacco, the patient reports quitting approximately 30 years ago, Patient/guardian denies using alcohol, street drugs. Screenin/06 00:07 Abuse screen: Denies threats or abuse. Denies injuries from another. Nutritional mg2 screening: No deficits noted. Tuberculosis screening: No symptoms or risk factors identified. Fall Risk IV access (20 points). Assessment: 00:05 General: Appears in no apparent distress. comfortable, Behavior is calm, cooperative. mg2 Pain: Complains of pain in abdomen. Neuro: Level of Consciousness is awake, alert, obeys commands, Oriented to person, place, time, situation. Cardiovascular: Capillary refill < 3 seconds Patient's skin is warm and dry. Respiratory: Airway is patent Respiratory effort is even, unlabored, Respiratory pattern is regular, symmetrical. GI: Bowel sounds present X 4 quads. Abd is soft and non tender. : No signs and/or symptoms were reported regarding the genitourinary system. EENT: No signs and/or symptoms were reported regarding the EENT system. Derm: Skin is intact, is healthy with good turgor, Skin is pink, warm \T\ dry. normal. Musculoskeletal: Circulation, motion, and sensation intact. Capillary refill < 3 seconds. 01:10 Reassessment: patient back from ct scan. mg2 02:14 Reassessment: Patient appears in no apparent distress at this time. Patient and/or mg2 family updated on plan of care and expected duration. Pain level reassessed. Patient is alert, oriented x 3, equal unlabored respirations, skin warm/dry/pink. updated about the patient's status. 03:10 Reassessment: Patient states feeling better. mg2 Vital Signs: 08/02 23:28 BP 149 / 85; Pulse 95; Resp 18; Temp 98.6; Pulse Ox 98% ; Pain 9/10; ll1 08/03 02:15 BP 131 / 102; Pulse 89; Resp 18; Pulse Ox 100% on R/A; mg2 ED Course: 08/02 23:09 Patient arrived in ED. cl3 23:14 Jose J Abernathy, RN is Primary Nurse. mg2 23:22 Chalo Barrera MD is Attending Physician. tw4 23:30 Triage completed. ll1 23:32 Arm band placed on Patient placed in an exam room, on a stretcher. ll1 08/03 00:07 No provider procedures requiring assistance completed. Inserted saline lock: 20 gauge mg2 in left antecubital area, using aseptic technique. Blood collected. 00:08 Patient has correct armband on for positive identification. mg2 01:38 CT Abd/Pelvis - IV Contrast Only In Process Unspecified. EDMS 03:11 IV discontinued, intact, bleeding controlled, No redness/swelling at site. Pressure mg2 dressing applied. Administered Medications: No medications were administered Outcome: 02:56 Discharge ordered by . tw4 03:11 Discharged to home ambulatory. mg2 03:11 Condition: stable 03:11 Discharge instructions given to patient, Instructed on discharge instructions, follow up and referral plans. medication usage, Demonstrated understanding of instructions, follow-up care, medications, Prescriptions given X 2. 03:11 Patient left the ED. mg2 Signatures: Dispatcher [employer] EDMS Chalo Barrera MD MD tw4 Jose J Abernathy, RN RN mg2 Silvia Fatima cl3 Lurdes Fatima RN RN ll1
[2019-08-04 03:24] VITALS: TEMP 98.6
[2019-08-04 03:25] VITALS: BP 131/102; O2SAT 100
--- NOTE | 2019-08-04 10:21 | RAD REPORT ---
EXAM DESCRIPTION: CT - Abdomen Pelvis W Contrast - 08/04/2019 6:38 am COMPARISON: None CLINICAL HISTORY: Abdominal pain TECHNIQUE: Multiple helical axial images were obtained through the abdomen and pelvis using intraven ous contrast. Coronal and sagittal reformatted images were obtained. All CT scans at this facility use dose modulation, iterative reconstruction, and/or weight-based dosi ng when appropriate to reduce radiation dose to as low as reasonably achievable. FINDINGS: Lung bases: There is a 6 mm nodular density in the lingula. Liver: Homogenous attenuation is noted. Gallbladder/biliary: Gallbladder appears normal in size. No calcified gallstones. Common bile duct is enlarged measuring up to 1.3 cm in diameter. Pancreas: Unremarkable. No evidence of ductal enlargement. Spleen: Appears unremarkable. No splenomegaly. Adrenals: Unremarkable. Kidneys and ureters: No evidence of hydronephrosis. Normal enhancement. Bladder: Unremarkable. Pelvic organs: Unremarkable. Bowel: Colonic diverticula are present. There is a moderate amount of fecal material in the colon. No evidence of bowel obstruction. No bowel wall thickening. Appendix appears unremarkable. Vasculature: There is nonspecific severe narrowing of the celiac trunk. Mild aortic atherosclerosis i s present. Peritoneum: No free air. No significant free fluid. Lymph nodes: Unremarkable. Soft tissues: Unremarkable. Bones: Chronic appearing fractures of the left superior and inferior pubic rami noted. Degenerative c hanges of the lumbar spine are present with levocurvature. Dense material within the L4 and L5 verteb ral bodies is noted suggestive of prior kyphoplasty. IMPRESSION: 1. Dilatation of the common bile duct which is nonspecific. Follow-up with ultrasound or MRCP can be performed, especially if concern for underlying distal biliary obstruction. 2. Moderate amount of fecal material in the colon. 3. Nonspecific severe narrowing of the celiac trunk. 4. 3 mm nodular density in the lingula. For a high risk patient, optional follow-up chest CT can be o btained in one year. Electronically signed by: Bhanu Riley MD 08/04/2019 2:34 AM CDT Due to temporary technical issues with the PACS/Fluency reporting system, reports are being signed by the in house radiologist as a courtesy to ensure prompt reporting. The interpreting radiologist is f ully responsible for the content of the report.
== END 2019-08-04 03:11 | disposition home or self-care (01) ==
LOC: ER 23:02
DX: K59.00 Constipation, unspecified (principal); I10 Essential (primary) hypertension; K21.9 Gastro-esophageal reflux disease without esophagitis; Z79.01 Long term (current) use of anticoagulants; Z88.1 Allergy status to other antibiotic agents; Z88.3 Allergy status to other anti-infective agents; Z88.5 Allergy status to narcotic agent; Z88.8 Allergy status to other drugs, medicaments and biological substances; Z86.718 Personal history of other venous thrombosis and embolism
CPT/HCPCS: 85025; 80048; 36415; 80076; 83690; 74177; 99284; Q9967

== ENCOUNTER 2019-08-17 18:31 | Emergency (ER) | payer OTHER, BC ==
--- OUTSIDE RECORDS SUMMARY | 2019-08-17 18:34 | XMS REPORT | Clinical Summary ---
:1945 Author Organization [facility] Address [address] [place] [address] Care Team Providers Name Role Phone Asked, Pcp Primary Care Provider Unavailable Allergies Active Allergy Reactions Severity Noted Date Comments Adhesive Tape-Silicones Itching, Swelling Medium 11/17/2009 Itching & swelling Itching & swell ing Butorphanol Tartrate Anaphylaxis, High 11/17/2009 "brings on cardiac Palpitations arrest" Ciprofloxacin Other (See Comments) High 03/16/2019 Clarithromycin Palpitations High 11/17/2009 High heart ra te Doxycycline Hyclate Other (See Comments) Low 03/11/2016 Abdominal pain Erythromycin Nausea Only Low 03/11/2016 Gabapentin Other (See Comments) High 03/11/2016 disorie ntation Glycopyrrolate Nausea Only Low 03/11/2016 Levofloxacin Nausea Only Low 03/11/2016 Moxifloxacin Nausea Only Low 03/11/2016 Nabumetone Nausea Only 03/11/2016 Tolterodine Nausea Only Low 03/11/2016 Medications Medication Sig Dispensed Refills Start End Status Date Date atenolol 25 mg daily. 1 02/21/20 Active (TENORMIN) 50 MG 16 tablet alendronate 0 01/10/20 Active (FOSAMAX) 70 MG 17 tablet esomeprazole Take 40 mg by 0 Act nikhil (NexIUM) 40 MG mouth daily before capsule breakfast. ELIQUIS 5 mg 2 08/26/19 Active tablet 18 NARCAN 4 UMU REP ALN 0 10/01/19 Active mg/actuation 19 spray,non-aerosol spironolactone spironolactone 25 0 Active (ALDACTONE) 25 MG mg tablet tablet lisinopril lisinopril 5 mg 0 Act nikhil (PRINIVIL) 5 mg tablet tablet DULoxetine duloxetine 20 mg 0 Ac tive (CYMBALTA) 20 MG capsule,delayed capsule release tiZANidine Take 1 tablet (4 90 tablet 1 07/19/19 Ac tive (ZANAFLEX) 4 MG mg total) by mouth 20 tablet every 8 (eight) hours as needed for muscle spasms. oxyCODone Take 1 tablet (20 120 tablet 0 08/25/ A ctive (ROXICODONE) 20 MG mg total) by mouth 20 02 0 tabletIndications: 4 (four) times a chronic pain day for 30 days .chronic pain. Max Daily Amount: 80 mg oxyCODone Take 1 tablet (20 120 tablet 0 09/24/19 A ctive (ROXICODONE) 20 MG mg total) by mouth 20 02 0 tabletIndications: 4 (four) times a chronic pain day for 30 days .chronic pain. oxyCODone Take 1 tablet (20 120 tablet 0 07/28/ A ctive (ROXICODONE) 20 MG mg total) by mouth 20 02 0 tabletIndications: 4 (four) times a chronic pain day for 30 days .chronic pain. VENTOLIN HFA 90 4 12/11/19 Disc ontinued mcg/actuation 16 019 inhaler sucralfate as needed. 3 01/24/20 Disconti nued (CARAFATE) 1 gram 16 019 tablet tiZANidine 0 10/06/19 Discontin ued (ZANAFLEX) 4 MG 19 019 tablet hydromorPHONE TK 1 T PO Q 4 TO 6 0 10/01/19 Discontinued (DILAUDID) 4 MG H 19 019 tablet oxyCODone-acetamin oxycodone-acetamin 0 Discontinued ophen (PERCOCET) ophen 10 mg-325 mg 019 10-325 mg per tablet tablet oxyCODone Take 15 mg by 0 Discon tinued (ROXICODONE) 15 MG mouth every 6 020 immediate release (six) hours as tabletIndications: needed for acute pain moderate pain .Acute Pain. tiZANidine Take 1 tablet (4 30 tablet 2 03/18/20 Di scontinued (ZANAFLEX) 4 MG mg total) by mouth 19 020 (Reorder) tablet daily for 90 days. oxyCODone Take 1 tablet (20 120 tablet 0 04/06/19 D iscontinued (ROXICODONE) 20 MG mg total) by mouth 20 02 0 (Med List tabletIndications: 4 (four) times a Cleanup) chronic pain day for 30 days .chronic pain. Max Daily Amount: 80 mg tiZANidine Take 1 tablet (4 270 tablet 3 04/19/19 D iscontinued (ZANAFLEX) 4 MG mg total) by mouth 20 020 (Reorder) tablet 3 (three) times a day. tiZANidine Take 1 tablet (4 90 tablet 2 06/03/19 Di scontinued (ZANAFLEX) 4 MG mg total) by mouth 20 020 (Reorder) tablet every 8 (eight) hours as needed for muscle spasms. oxyCODone Take 1 tablet (20 120 tablet 0 07/29/19 D iscontinued (ROXICODONE) 20 MG mg total) by mouth 20 02 0 (Reorder) tabletIndications: 4 (four) times a chronic pain day for 30 days .chronic pain. 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, sequela 04/11/2017 Chronic prescription opiate use 11/07/2016 Bilateral hip bursitis 11/07/2016 Chronic cervical radiculopathy 10/08/2016 Scoliosis 10/08/2016 Myalgia 10/08/2016 Back pain 05/29/2016 Cervicalgia 05/29/2016 Lumbar radicular pain 05/29/2016 Hip pain, chronic 05/29/2016 Lumbar disc disease 05/29/2016 Encounters Date Type Specialty Care Team Description 07/23/2019 Refill Physical Medicine and Oralia Crawley RN Ot her chronic pain Rehabilitation (Primary Dx) 07/19/2019 Telemedicine Physical Medicine and John Hare disc disease (Primary Dx); Rehabilitation MD Veronica Bursitis of b oth hips, unspecified bursa; Scoliosis of th oracolumbar spine, unspecified scoliosis type; Chronic cervica l radiculopathy; Lumbar radicula r pain; Back pain, unsp ecified back location, unspecified back pain laterality, unspecified chronicity; 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, sequela 07/19/2019 Travel 07/14/2019 Travel 06/03/2019 Refill Physical Medicine and Elizabeth Pepe RN 05/25/2019 Office Visit Physical Medicine and [facility] mbar radicular pain (Primary Dx); Rehabilitation MD Veronica Cervicalgia; Chronic cervica l radiculopathy; Lumbar disc dis ease; Chronic prescri ption opiate use; Chronic deep ve in thrombosis (DVT) of proximal vein of left lower extremity (HCC); Back pain, unsp ecified back location, unspecified back pain laterality, unspecified chronicity 04/28/2019 Telephone Physical Medicine and Yeimi Sarabia, Rehabilitation MA 04/19/2019 Office Visit Physical Medicine and [facility]are Ch ronic prescription opiate use (Primary Dx); Rehabilitation MD Veronica Bursitis of o ther bursa of both hips; Lumbar disc dis ease; Chronic cervica l radiculopathy; Myalgia; Lumbar radicula r pain; Cervicalgia; Chronic deep ve in thrombosis (DVT) of proximal vein of left lower extremity (HCC); Back pain, unsp ecified back location, unspecified back pain laterality, unspecified chronicity; Scoliosis, unsp ecified scoliosis type, unspecified spinal region 04/05/2019 Refill Physical Medicine and Yeimi Sarabia C hronic cervical radiculopathy (Primary Dx); Rehabilitation MA Lumbar disc d isease 04/01/2019 Telephone Physical Medicine and Yeimi Sarabia, Rehabilitation [place] 03/18/2019 Refill Physical Medicine and SarabiaRuben perezYeimi, Rehabilitation MA 03/17/2019 Telephone Physical Medicine and SarabiaRuben perezYeimi, Rehabilitation [place] 03/16/2019 Office Visit Physical Medicine and [facility] rvicalgia (Primary Dx); Marquise Martin MD Lumbar radicu lar pain; Chronic cervica l radiculopathy; Lumbar disc dis ease; Bursitis of oth er bursa of both hips; 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, sequela; Chronic prescri ption opiate use; Back pain, unsp ecified back location, unspecified back pain laterality, unspecified chronicity; Chronic deep ve in thrombosis (DVT) of proximal vein of left lower extremity (HCC) 10/13/2018 Office Visit Physical Medicine and [facility] Hare Ch deep vein thrombosis (DVT) of proximal vein of left lower extremity (HCC) (Primary Dx); Marquise Martin MD Lumbar radicu lar pain; Cervicalgia; Chronic cervica l radiculopathy; Lumbar disc dis ease; Scoliosis of th oracolumbar spine, unspecified scoliosis type; Chronic prescri ption opiate use; Back pain, unsp ecified back location, unspecified back pain laterality, unspecified chronicity after 08/16/2018 Family History Medical History Relation Name Comments [...] Assigned at Date Recorded Not on file Job Start Date Occupation Industry Not on file Not on file Not on file Travel History Travel Start Travel End No recent travel history available. COVID-19 Exposure Response Date Recorded In the last month, have you been in contact with No / Unsure 07/19/2019 1:44 PM CDT someone who was confirmed or suspected to have Coronavirus / COVID-19? Last Filed Vital Signs Vital Sign Reading Time Taken Comments Blood Pressure 134/93 05/25/2019 11:28 AM TELEPHONER Pulse 83 05/25/2019 11:28 AM TELEPHONER Temperature - - Respiratory Rate - - Oxygen Saturation - - Inhaled Oxygen Concentration - - Weight - - Height - - Body Mass Index - - Plan of Treatment Date Type Specialty Care Team Description 10/14/2019 Telemedicine Physical Medicine and John Hare , Rehabilitation [address] [facility] [address] [place], [place] [address] [phone] Health Maintenance Due Date Last Done Comments COLONOSCOPY SCREENING 10/27/1993 SHINGLES VACCINES (#1) 10/27/1993 65+ PNEUMOCOCCAL VACCINE (1 of 2 - PCV13) 10/27/2008 BREAST CANCER SCREENING 10/16/2018 10/16/2016 INFLUENZA VACCINE 10/30/2019 04/21/2017 Procedures Procedure Name Priority Date/Time Associated Diagnosis Comme nts DRUG SCREEN Routine 04/19/2019 DRUG SCREEN Routine 03/16/2019 after 08/16/2018 Results Drug Screen (04/19/2019)Only the most recent of2 resultswithin the time period is included. Narrative Performed At This result has an attachment that is no t available. 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
--- OUTSIDE RECORDS SUMMARY | 2019-08-17 18:35 | XMS REPORT | Clinical Summary ---
:1945 Author Organization [facility] Address [address] [place] [address] Care Team Providers Name Role Phone Sven Johnson MD Primary Care Provider Allergies Active Allergy Reactions Severity Noted Date Comments Moxifloxacin Nausea Only Low 06/10/2013 Tolterodine Nausea Only Low 06/10/2013 Doxycycline Hyclate Other (See Comments) Low 06/10/2013 Abdominal pain Erythromycin Nausea Only Low 06/10/2013 Levofloxacin Nausea Only Low 06/10/2013 Gabapentin Other (See Comments) 01/03/2015 disorie ntation Nabumetone Nausea Only 01/03/2015 Glycopyrrolate Nausea Only Low 06/10/2013 Butorphanol Tartrate Anaphylaxis High 06/09/2013 Medications Medication Sig Dispensed Refills Start Date End Date Status esomeprazole (NEXIUM) 40 Take 40 mg by 0 Active MG capsule mouth daily. sucralfate (CARAFATE) 1 g Take 1 g by 0 Active tablet mouth as needed . HYDROcodone-acetaminophen Take 1 tablet 0 Active (NORCO 5-325) 5-325 mg per by mouth every tablet 6 (six) hours as needed. hydrochlorothiazide Take 25 mg by 0 Active (HYDRODIURIL) 25 MG tablet mouth daily. nitroglycerin (NITROSTAT) Place 0.4 mg 0 Active 0.4 MG SL tablet under the tongue every 5 (five) minutes as needed. fluticasone (FLONASE) 50 1 spray by 0 Active mcg/actuation nasal spray Nasal route daily. cetirizine (ZYRTEC) 10 MG Take 10 mg by 0 Active tablet mouth daily. atenolol (TENORMIN) 50 MG Take 25 mg by 0 Active tablet mouth daily. clidinium-chlordiazepoxide Take 1 capsule 0 Active (LIBRAX) 5-2.5 mg per by mouth 2 capsule (two) times daily. Active Problems Problem Noted Date Fracture of lumbar spine 11/29/2016 Protein-calorie malnutrition, severe 11/29/2016 Acute low back pain 11/29/2016 Physical deconditioning 11/29/2016 Chest pain 11/29/2016 Hypertension Overview: bp controlled with medication x 3 yrs Social History Tobacco Use Types Packs/Day Years Used Date Former Smoker Alcohol Use Drinks/Week oz/Week Comments No Sex Assigned at Date Recorded Not on file Job Start Date Occupation Industry Not on file Not on file Not on file Travel History Travel Start Travel End No recent travel history available. Last Filed Vital Signs Not on file Plan of Treatment Not on file Results Not on fileafter 08/16/2018 Insurance Payer Benefit Plan / Subscriber ID Type Phone Address Group MEDICARE MEDICARE A B xxxxxxxxxx Medicare BLUE CROSS/BLUE [place]BS INDEMNITY [place] xxxxxxxxxxxx PPO [address] [place] [address] (Home) [place] [address] Advance Directives For more information, please contact:[facility], [place] [phone] Code Status Date Activated Date Inactivated Comments Full Code 11/29/2016 5:49 AM 12/09/2016 3:06 PM This code status was determined by: Patient Code ONE 06/10/2013 12:15 PM 06/10/2013 3:46 PM All possib le means of support, including: cardi ac massage, mechanical ventilation, and defibrillation will be used to suppo rt life.
--- OUTSIDE RECORDS SUMMARY | 2019-08-17 18:37 | XMS REPORT ---
:1945 Author Organization [facility] t Address [address] [place] [address] Care Team Providers Name Role Phone Asked, Pcp Primary Care Physician Unavailable King RICO Attending Clinician Unavailable Elisa ALVAREZ, H. Attending Clinician Afshin GÓMEZ, T Attending Clinician Unavailable Cornell MCMULLEN Attending Clinician Unavailable RAEANN STEWARD Attending Clinician Unavailable RAEANN STEWARD Admitting Clinician Unavailable Payers Payer Name Policy Policy Number Effective Expiration Source Type Date Date MEDICAREMEDICARE PART xxxxxxxxxxx 2008 [facility] (formerly [facility])[3] A AND 00:00:00 Gnosticist B[place]xxx/03/2008[place]ER[place] xxxxxxxxxxxx 2008 [facility] MEDICARE 00:00:00 Gnosticist SUPPLEMENTxxxxxxxxxxx [facility]2008[facility] Condition Condition Condition Status Onset Resolution Last Treating Co mments Source Name Details Category Date Date Treatment Clinician Date 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 6-14 [place] thrombosis thrombosis 00:00: st (DVT) of (DVT) of 00 proximal proximal vein of vein of left lower left lower extremity extremity Pathologic Pathologic Disease Active [facility] lara 1-12 Methodi fracture fracture 00:00: st of right of right 00 radius due radius due to to osteoporos osteoporos is, is, sequela sequela Chronic Chronic Disease Active [place] prescripti prescripti 8-10 Me thodi on opiate on opiate 00:00: st use use 00 Bilateral Bilateral Disease Active Faina brewern hip hip 8-10 Methodi bursitis bursitis 00:00: st 00 Chronic Chronic Disease Active [place] cervical cervical 7- Method i radiculopa radiculopa 00:00: st thy thy 00 Scoliosis Scoliosis Disease Active Faina ston 7 Methodi 00:00: st 00 Myalgia Myalgia Disease Active [place] 7 Methodi 00:00: st 00 Back pain Back pain Disease Active Faina ston 3 Methodi 00:00: st 00 Cervicalgi Cervicalgi Disease Active [place] a a 3 Methodi 00:00: st 00 Lumbar Lumbar Disease Active [place] radicular radicular 3 Meth [place] pain pain 00:00: st 00 Hip pain, Hip pain, Disease Active Faina ston chronic chronic 3 Methodi 00:00: st 00 Lumbar Lumbar Disease Active [place] disc disc 3 Methodi disease disease 00:00: st 00 Venous Venous Problem Active [facility] insufficie insufficie Stacy kes - ncy of [facility] both lower both lower l extremitie extremitie Ou tpati s s ent Clinics Osteoporos Osteoporos Problem Active [facility] is is [facility] HTN HTN Problem Active [facility] (hypertens (hypertens Stacy kes - ion) ion) [facility] Adjustment Adjustment Problem Active [facility] disorder, disorder, Luke s - unspecifie unspecifie Me moria d d l [facility] History of History of Problem Active [facility] fall fall [facility] Other Other Problem Active [facility] pulmonary pulmonary Luke s - embolism embolism Memori a without without l acute cor acute cor Outp ati pulmonale, pulmonale, en t unspecifie unspecifie Cl inics d d chronicity chronicity Anxiety Anxiety Problem [facility] GERD GERD Problem Active [facility] (gastroeso (gastroeso Stacy kes - phageal phageal Memoria reflux reflux l disease) disease) Outpat i ent Clinics Flu Flu Problem Active [facility] vaccine vaccine [facility] - need need [facility] Allergic Allergic Problem Active [facility] Chronic Chronic Problem Active [facility] back pain back pain [facility] - [facility] 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 [facility] Anorexia Anorexia Problem Active [facility] Sleep Sleep Problem Active [facility] apnea, apnea, Lukes - obstructiv obstructiv Me moria e e l [facility] Constipati Constipati Problem Active C [facility] on on [facility] Iron Iron Problem Active [facility] deficiency deficiency Stacy kes - anemia, anemia, Memoria unspecifie unspecifie l d iron d iron Outpati deficiency deficiency en t anemia anemia Clinics type type Anemia due Anemia due Problem Active C [facility] to other to other [facility] - cause, not cause, not Me moria classified classified l [facility] Pruritic Pruritic Problem Active [facility] t dermatitis dermatitis Stacy kes - [facility] Varicose Varicose Problem Active [facility] veins of veins of [facility] - bilateral bilateral Solitario manpreet lower lower l extremitie extremitie Ou tpati s with s with ent other other Clinics complicati complicati ons ons Allergies, Adverse Reactions, Alerts Allergy Allergy Status Severity Reaction(s) Onset Inactive Treating Comm ents Source Name Type Date Date Clinician Ciproflo Propensi Active Other (See 2018-03 Regan gibson ty to Comments) 05-17 Methodi adverse 00:00: st reaction 00 s to drug Doxycycl Propensi Active Other (See 2015-03 Abdominal Toney ine ty to Comments) 2 pain Methodi Hyclate adverse 00:00: st reaction 00 s to drug Erythrom Propensi Active Nausea Only 2015-03 [place] ycin ty to 2-12 Methodi adverse 00:00: st reaction 00 s to drug Gabapent Propensi Active Other (See 2015-03 disorient Toney in ty to Comments) 2- ation Methodi adverse 00:00: st reaction 00 s to drug Glycopyr Propensi Active Nausea Only 2015- H uche rolate ty to 2-12 Methodi adverse 00:00: st reaction 00 s to drug Levoflox Propensi Active Nausea Only 2016- H uche acin ty to 2-12 Methodi adverse 00:00: st reaction 00 s to drug Moxiflox Propensi Active Nausea Only 2016- H uche acin ty to 2-12 Methodi adverse 00:00: st reaction 00 s to drug Nabumeto Propensi Active Nausea Only 2016- H uche ne ty to 2-12 Methodi adverse 00:00: st reaction 00 s to drug Tolterod Propensi Active Nausea Only 2015-03 H uc[facility] ine ty to 2-12 Methodi adverse 00:00: st reaction 00 s to drug Adhesive Propensi Active Itching, Itching & H uche Tape-Jada ty to Swelling 8-20 swellingI Met hodi icones adverse 00:00: tching & st reaction 00 swelling s to drug Butorpha Propensi Active Anaphylaxis, "brings [place] nol ty to Palpitations 8-20 on Meth [place] Tartrate adverse 00:00: cardiac st reaction 00 arrest" s to drug Clarithr Propensi Active Palpitations High [place] omycin ty to 8-20 heart Methodi adverse 00:00: rate st reaction 00 s to drug Stadol Adverse Active anaphylaxis [facility] Reaction [facility] Neuronti Adverse Active anaphylaxis [facility] n Reaction [facility] Ciproflo Adverse Active Info Not [facility] t xacin Reaction Available [facility] Family History Family Member Diagnosis Comments Start Date Stop Date Source Natural father Cancer [place] Me thodist Natural mother Heart attack [place] Gnosticist Natural mother Hypertension [place] Gnosticist Natural mother Osteoporosis [place] Gnosticist Paternal grandfather Stroke [place] Gnostic[place] Paternal grandmother Stroke [place] Gnosticist Natural sister Diabetes [facility] thodist Social History Social Habit Start Date Stop Date Quantity Comments Source History of tobacco Cigarette Smoker [place] use Gnosticist Sex Assigned At [place] Gnosticist Exposure to Not sure [place] SARS-CoV-2 (event) Method ist Cigarettes smoked 2019-05-25 2019-05-25 [place] current (pack per 00:00:00 00:00:[address] day) - Reported Cigarette 2019-05-25 2019-05-25 [place] pack-years 00:00:00 00:00:00 Gnosticist Alcohol intake 2019-05-25 2019-05-25 Current [place] 00:00:00 00:00:00 non-drinker of Gnosticist alcohol (finding) Smoking Status Start Date Stop Date Source Former smoker 2019-05-25 00:00:00 2019-05-25 00:00:00 [place] Gnosticist Medications Ordered Filled Start Stop Current Ordering Indication Dosage Frequency Signature Comments Components Source Medication Medication Date Date Medication? Clinician (SIG) Name Name oxyCODone 2020- Yes 83160 20mg Q.25D Take 1 Faina ston (ROXICODONE 4-30 05-31 tablet (20 M ethodi ) 20 MG 00:00: 04:59 mg total) st tablet 00 :00 by mouth 4 (four) times a day for 30 days .chronic pain. oxyCODone 2019-2019- [place] [id number] 20mg Q.25D Take 1 Faina ston (ROXICODONE 4-30 04-24 tablet (20 M ethodi ) 20 MG 00:00: 00:00 mg total) st tablet 00 :00 by mouth 4 (four) times a day for 30 days .chronic pain. lisinopril 2019-0 Yes lisinopril [place] (PRINIVIL) 4-20 5 mg Methodi 5 mg tablet 19:04: tablet st 21 DULoxetine 2019-0 Yes duloxetine [place] (CYMBALTA) 4-20 20 mg Methodi 20 MG 19:04: capsule,de st capsule 21 layed release tiZANidine 2019-0 Yes 4mg Q8H Take 1 [place] (ZANAFLEX) 4-20 tablet (4 [place] 4 MG tablet 00:00: mg total) s t 00 by mouth every 8 (eight) hours as needed for muscle spasms. tiZANidine 2019-0 2020- No 4mg Q8H Take 1 [place] (ZANAFLEX) 3-05 04-20 tablet (4 Met hodi 4 MG tablet 00:00: 00:00 mg total) st 00 :00 by mouth every 8 (eight) hours as needed for muscle spasms. esomeprazol 2019-0 Yes 40mg QD Take 40 mg Toney e (NexIUM) 2-25 by mouth Metho di 40 MG 17:28: daily st capsule 41 before breakfast. spironolact Yes spironolac [place] one 2-25 tone 25 mg Methodi (ALDACTONE) 17:28: tablet st 25 MG 41 tablet oxyCODone 2020- No 20013 15mg Q6H Take 15 mg [place]oney (ROXICODONE 1-20 01-20 by mouth Met hodi ) 15 MG 20:01: 00:[address] immediate 37 :00 (six) release hours as tablet needed for moderate pain .Acute Pain. tiZANidine 2019- No 4mg Q.[id number] Take 1 [place] (ZANAFLEX) 1-20 03-05 [id number] tablet (4 Methodi 4 MG tablet 00:00: 00:00 3D mg total) st 00 :00 by mouth 3 (three) times a day. oxyCODone 2019- No 46136 20mg Q.25D Take 1 Faina ston (ROXICODONE 04-06 02-07 tablet (20 M ethodi ) 20 MG 00:00: 05:59 mg total) st tablet 00 :00 by mouth 4 (four) times a day for 30 days .chronic pain. Max Daily Amount: 80 mg tiZANidine 2018-03- No 4mg QD Take 1 [place] ton (ZANAFLEX) 05-19 tablet (4 Met hodi 4 MG tablet 00:00: 00:00 mg total) st 00 :00 by mouth daily for 90 days. oxyCODone-a 2018-03- No oxycodone- [place] cetaminophe 2-17 12-17 acetaminop M ethodi n 19:37: 00:[address] (PERCOCET) 33 :00 mg-325 mg 10-325 mg tablet per tablet Neomycin-Po Neomycin-Po 2018-03 Yes Stu [address] lymyxin-HC lymyxin-HC 2-10 [place] into Stacy kes - 00:00: affected Memoria 00 ear l Outpati ent Clinics Oxycodone Oxycodone Yes Stu [address] HCl HCl 7-16 [place] as needed [facility] - 00:[facility]: Memoria 00 l Outpati ent Clinics tiZANidine 2018- No [place] (ZANAFLEX) 7-08 07-16 Methodi 4 MG tablet 00:00: 00:00 st 00 :00 NARCAN 4 Yes UMU REP [place] mg/actuatio 09-30 ALN Methodi n 00:00: st spray,non-a 00 erosol hydromorPHO 2019- No TK 1 T PO Toney NE 09-30 12-17 Q 4 TO 6 H Methodi (DILAUDID) 00:00: 00:00 st 4 MG tablet 00 :00 Meclizine Meclizine Yes Stu [address] HCl HCl 4-23 [place] as needed [facility] - 00:00: Memoria 00 l Outpati ent Clinics ELIQUIS 5 Yes Toney mg tablet 08-25 Methodi 00:00: st 00 alendronate 2016-03 Yes [place] (FOSAMAX) Methodi 70 MG 00:00: st tablet 00 atenolol 2015-03 Yes 25mg QD 25 mg [place] (TENORMIN) 04-22 daily. Methodi 50 MG 00:00: st tablet 00 sucralfate 2015-03 2019- No as needed. [place]oney (CARAFATE) 010-13 Methodi 1 gram 00:00: 00:00 st tablet 00 :00 VENTOLIN 2019- No [place] HFA 90 12-10 Methodi mcg/actuati 00:00: 00:00 st on inhaler 00 :00 Nexium Nexium Yes Stu [address] [facility] [place] Carafate Carafate Yes Stu [address] [place] [facility]ics Pepto-Bismo Pepto-Bismo Yes Stu [address] [facility] [place] needed [facility] Zanaflex Zanaflex Yes Stu [address] [place] as needed [facility] Prolia Prolia Yes Stu [address] [facility] Calcium Calcium Yes Stu [address] [facility] Vitamin D-3 Vitamin D-3 Yes Stu [address] [facility] [place] [facility] Mupirocin Mupirocin Yes Stu [address] [facility] [place] applicatio [facility] - n to Memoria affected l area Outpati ent Clinics Spironolact Spironolact Yes Stu [address] one one [place] [facility] Tizanidine Tizanidine Yes Stu TK [address] HCl HCl [place] QD PRN [facility] l Outpati ent Clinics Vital Signs Vital Name Observation Time Observation Value Comments Source Systolic blood 2019-05-25 17:28:00 134 mm[Hg] [place] [facility] pressure Diastolic blood 2019-05-25 17:28:00 93 mm[Hg] [place] pressure Heart rate 2019-05-25 17:28:00 83 /min Feng Cummins Procedures Procedure Date / Time Performed Performing Clinician [facility] e DRUG SCREEN 2019-04-19 00:00:00 Daryl Hare DRUG SCREEN 2019-03-16 00:00:00 Daryl Hare Plan of Care Planned Activity Planned Date Details Comments Source Future Scheduled 2019-10-30 INFLUENZA VACCINE [place] [facility] Test 00:00:00 [code = INFLUENZA VACCINE] Future Scheduled 2018-10-16 BREAST CANCER [place] [facility] thodist Test 00:00:00 SCREENING [code = BREAST CANCER SCREENING] Future Scheduled 2008-10-27 65+ PNEUMOCOCCAL [place] Gnosticist Test 00:00:00 VACCINE (1 of 2 - PCV13) [code = 65+ PNEUMOCOCCAL VACCINE (1 of 2 - PCV13)] Future Scheduled 1993-10-27 COLONOSCOPY SCREENING [facility] Gnosticist Test 00:00:00 [code = COLONOSCOPY SCREENING] Future Scheduled 1993-10-27 SHINGLES VACCINES [place] [facility] Test 00:00:00 (#1) [code = SHINGLES VACCINES (#1)] Medication 2019-09-24 oxyCODone [place] Methodi st 00:00:00 (ROXICODONE) 20 MG tablet [code = 5268818] Medication 2019-08-26 oxyCODone [place] Methodi st 00:00:00 (ROXICODONE) 20 MG tablet [code = 2629922] Encounters Start End Encounter Admission Attending Care Care Encounter Source Date/Time Date/Time Type Type Clinicians Facility Department ID 2019-08-05 2019-08-05 [facility] [id number] [facility] 14:58:00 14:58:00 [place] [employer] Medicine Outpat[facility] ent Clinics 2019-07-22 2019-07-22 [facility] [id number] [address] 12:29:00 12:29:00 [place] [employer] [facility] [place] [facility] Medicine Outpati ent Clinics 2019-07-19 2019-07-19 Outpatient ELISA [facility] [id number] 468 [place] 00:00:00 00:00:00 [address]ARY[address] 2019-05-28 2019-05-28 [facility] [id number] 08:12:00 08:12:00 [place] [facility] Medicine Outpati ent Clinics 2019-05-25 2019-05-25 Outpatient ELISA [facility] [id number] [address] [place] [address] 00:00:00 00:00:00 DARYL [address] 2019-05-20 2019-05-20 [facility] [id number] 09:00:00 09:00:00 [place] [employer] [facility] [place] [facility] Medicine Outpati ent Clinics 2019-04-28 2019-04-28 [facility] [id number] 16:26:00 16:26:00 [place] [employer] [facility] [place] [facility] Clin[facility] 2019-03-09 2019-03-09 [facility] [id number] 16:45:00 16:45:00 [place] [employer] [facility] [place] [facility] Medicine Outpati ent Clinics 2019-03-03 2019-03-03 [facility] [id number] 15:38:00 15:38:00 [place] [employer] [facility] - Jangl [facility] Medicine Out[facility] Clinics 2019-03-03 2019-03-03 [facility] [id number] 13:00:00 13:00:00 [place] [employer] [facility] [place] [facility] Out[facility] Clin[facility] 2019-01-27 2019-01-27 [facility] [id number] 11:24:00 11:24:[address] [place] [address] [facility] [place] - [facility] Medicine l Medicine Outpati ent Clinics 2019-01-07 2019-01-07 [facility] [id number] 11:56:00 11:56:[address] [place] [address] [facility] [place] - Drive [facility] Medicine l Medicine Outpati ent Clinics 2019-01-04 2019-01-04 [facility] [id number] 16:00:00 16:00:[address] [place] [address] [facility] [place] - Drive [facility] Medicine l Medicine Outpati ent Clinics 2018-12-23 2018-12-23 [facility] [id number] [facility] 14:16:00 14:16:[address] [place] [address] [place] - Drive [facility] Medicine Outpat[facility] Clinics 2018-12-17 2018-12-17 [facility] [id number] 11:29:00 11:29:[address] [place] [address] [facility] - Drive [facility] Medicine l Medicine Outpati ent Clinics 2018-12-14 2018-12-14 [facility] [id number] 16:12:00 16:12:[address] [place] [address] [facility] [place] - Drive [facility] Medicine l Medicine Outpati ent Clinics 2018-12-02 2018-12-02 [facility] [id number] 14:45:00 14:45:[address] [place] [address] [facility] [place] - Drive [facility] Medicine l Medicine Outpati ent Clinics 2018-11-23 2018-11-23 [facility] [id number] 10:51:00 10:51:[address] [place] [address] [facility] [place] - Drive [facility] Medicine l Medicine Outpati ent Clinics 2018-10-20 2018-10-20 [facility] [id number] 15:40:00 15:40:[address] [place] [address] [facility] - Drive [facility] Medicine l Medicine Outpati ent Clinics 2018-08-11 2018-08-11 [facility] [id number] 08:59:00 08:59:[address] [place] [address] [place] - Drive [facility] Medicine l Medicine Outpati ent Clinics 2018-08-10 2018-08-10 [facility] [id number] 15:55:00 15:55:[address] [place] [address] [place] - Drive [facility] Medicine l Medicine Outpati ent Clinics 2018-07-29 2018-07-29 [facility] [id number] 09:31:00 09:31:[address] [place] [address] [facility] - Drive [facility] Medicine l Medicine Outpati ent Clinics 2018-07-21 2018-07-21 [facility] [id number] 11:45:00 11:45:[address] [place] [address] [place] - Drive [facility] Family Medicine l Medicine Outpati ent Clinics 2018-07-14 2018-07-14 [facility] [id number] 13:31:00 13:31:[address] [place] [address] [facility] - Drive [facility] Medicine l Medicine Outpati ent Clinics 2018-07-01 2018-07-01 [facility] [id number] 14:10:00 14:10:00 [address] [place] [address] [place] [address] [place] - Drive [facility] Family Medicine l Medicine Outpati ent Clinics 2018-07-01 2018-07-01 [facility] [id number] 11:45:00 11:45:[address] [place] [address] [facility] - Drive [facility] Medicine l Medicine Outpati ent Clinics 2018-06-04 2018-06-04 [facility] [id number] 11:30:00 11:30:[address] [place] [address] [place] [facility] - Drive [facility] Medicine l Medicine Outpati ent Clinics 2018-03-18 2018-03-18 [facility] [id number] 14:08:00 14:08:[address] [place] [address] [facility] - Drive [facility] Medicine l Medicine Outpati ent Clinics 2018-01-12 2018-01-12 [facility] [id number] 08:45:00 08:45:[address] [place] [address] [place] - Drive [facility] Medicine l Medicine Outpati ent Clinics 2018-01-05 2018-01-05 [facility] [id number] 14:00:00 14:00:[address] [place] [address] [place] [address] [place] - Drive [facility] Medicine l Medicine Outpati ent Clinics Results Test Description Test Time Test Comments Results Result [facility] e Comments ANG, KYPHOPLASTY, 2016-12-11 What level(s) FINAL REPORT PATIENT LUMBAR, INITIAL 08:42:00 should be ID: [id number] performed->L4-5 HISTORY: L4 and L5 Reason for wedge vertebral exam:->COMPRESS compression ION FRACTURE fractures and severe lower back pain despite [...] MDReport Verified Date/Time: 12/11/2016 08:42:31 Reading Location: [place] [address] Angio Body Reading Room AND CREATININE 2016-12-08 06:18:00 Test Item Value Reference Range Interpretation Comme nts BLOOD UREA NITROGEN 14 mg/dL 7-21 (BEAKER) (test code = 354) CREATININE (BEAKER) (test 0.58 mg/dL 0.57-1.25 code = 358) EGFR (BEAKER) (test code = 102 mL/min/1.73 sq m ESTIMATED GFR IS NOT 1092) ACCURATE CRE ATININE CLEARANCE IN [place] EDICTING GLOMERULAR FILT RATION RATE. ESTIMATED GFR IS NOT APPLICABLE FOR DIALYSIS PATIENTS. CBC (HEMOGRAM ONLY)2016-12-08 05:52:00 Test Item Value Reference Range Interpretation Comments WHITE BLOOD CELL COUNT (BEAKER) 9.9 K/ L 3.5-10.5 (test code = 775) RED BLOOD CELL COUNT (BEAKER) 3.95 M/ L 3.93-5.22 (test code = 761) HEMOGLOBIN (BEAKER) (test code = 11.9 GM/DL 11.2-15.7 410) HEMATOCRIT (BEAKER) (test code = 36.8 % 34.1-44.9 411) MEAN CORPUSCULAR VOLUME (BEAKER) 93.2 fL 79.4-94.8 (test code = 753) MEAN CORPUSCULAR HEMOGLOBIN 30.1 pg 25.6-32.2 (BEAKER) (test code = 751) MEAN CORPUSCULAR HEMOGLOBIN CONC 32.3 GM/DL 32.2-35.5 (BEAKER) (test code = 752) RED CELL DISTRIBUTION WIDTH 13.5 % 11.7-14.4 (BEAKER) (test code = 412) PLATELET COUNT (BEAKER) (test 282 K/CU MM 150-450 code = 756) MEAN PLATELET VOLUME (BEAKER) 10.4 fL 9.4-12.3 (test code = 754) NUCLEATED RED BLOOD CELLS 0 /100 WBC 0-0 (BEAKER) (test code = 413) BASIC METABOLIC [id number] 06:49:00 Test Item Value Reference Range Interpretation Comments SODIUM (BEAKER) 136 meq/L 136-145 (test code = 381) POTASSIUM (BEAKER) 4.0 meq/L 3.5-5.1 (test code = 379) CHLORIDE (BEAKER) 103 meq/L 98-107 (test code = 382) CO2 (BEAKER) (test 27 meq/L 22-29 code = 355) BLOOD UREA NITROGEN 15 mg/dL 7-21 (BEAKER) (test code = 354) CREATININE (BEAKER) 0.60 mg/dL 0.57-1.25 (test code = 358) GLUCOSE RANDOM 96 mg/dL 70-105 (BEAKER) (test code = 652) CALCIUM (BEAKER) 9.7 mg/dL 8.4-10.2 (test code = 697) EGFR (BEAKER) (test 98 mL/min/1.73 ESTIMA MALIKA GFR IS code = 1092) sq m NOT ACCURATE CREATININE CLEARANCE IN PREDICTING GLOMERULAR FILTRATION RATE . ESTIMATED GFR I S NOT APPLICABLE FOR DIALYSIS PATIEN TS. PROTHROMBIN TIME/[id number] 06:31:00 Test Item Value Reference Range Interpretation Comments PROTIME (BEAKER) (test code = 13.4 seconds 11.7-14.7 759) INR (BEAKER) (test code = 370) 1.0 <=5.9 RECOMMENDED COUMADIN/WARFARIN INR THERAPY RANGESSTANDARD DOSE: 2.0 - 3.0 Includes: PROPHYLAXIS forvenous thrombosis, systemic embolization; TREATMENT for venous thrombosis and/or pulmonary embolus.HIGH RISK: Target INR is 2.5-3.5 for patients with mechanical heart valves.[id number] 06:31:00 Test Item Value Reference Range Interpretation Comments PARTIAL THROMBOPLASTIN TIME 26.2 seconds 22.5-36.0 (BEAKER) (test code = 760) CBC W/PLT COUNT & AUTO [id number] 06:23:00 Test Item Value Reference Range Interpretation Comments WHITE BLOOD CELL COUNT (BEAKER) 9.5 K/ L 3.5-10.5 (test code = 775) RED BLOOD CELL COUNT (BEAKER) 4.03 M/ L 3.93-5.22 (test code = 761) HEMOGLOBIN (BEAKER) (test code = 12.3 GM/DL 11.2-15.7 410) HEMATOCRIT (BEAKER) (test code = 37.0 % 34.1-44.9 411) MEAN CORPUSCULAR VOLUME (BEAKER) 91.8 fL 79.4-94.8 (test code = 753) MEAN CORPUSCULAR HEMOGLOBIN 30.5 pg 25.6-32.2 (BEAKER) (test code = 751) MEAN CORPUSCULAR HEMOGLOBIN CONC 33.2 GM/DL 32.2-35.5 (BEAKER) (test code = 752) RED CELL DISTRIBUTION WIDTH 13.6 % 11.7-14.4 (BEAKER) (test code = 412) PLATELET COUNT (BEAKER) (test 297 K/CU MM 150-450 code = 756) MEAN PLATELET VOLUME (BEAKER) 10.2 fL 9.4-12.3 (test code = 754) NUCLEATED RED BLOOD CELLS 0 /100 WBC 0-0 (BEAKER) (test code = 413) NEUTROPHILS RELATIVE PERCENT 76 % (BEAKER) (test code = 429) LYMPHOCYTES RELATIVE PERCENT 15 % (BEAKER) (test code = 430) MONOCYTES RELATIVE PERCENT 7 % (BEAKER) (test code = 431) EOSINOPHILS RELATIVE PERCENT 1 % (BEAKER) (test code = 432) BASOPHILS RELATIVE PERCENT 1 % (BEAKER) (test code = 437) NEUTROPHILS ABSOLUTE COUNT 7.15 K/ L 1.56-6.13 H (BEAKER) (test code = 670) LYMPHOCYTES ABSOLUTE COUNT 1.45 K/ L 1.18-3.74 (BEAKER) (test code = 414) MONOCYTES ABSOLUTE COUNT (BEAKER) 0.70 K/ L 0.24-0.36 H (test code = 415) EOSINOPHILS ABSOLUTE COUNT 0.05 K/ L 0.04-0.36 (BEAKER) (test code = 416) BASOPHILS ABSOLUTE COUNT (BEAKER) 0.05 K/ L 0.01-0.08 (test code = 417) IMMATURE GRANULOCYTES-RELATIVE 1 % 0-1 PERCENT (BEAKER) (test code = 2801) [facility], MULTI, PHARM, [id number] 14:11:00Please do D SPECT camera for this patient Reason for exam:->Chest PainFINAL REPORT PROCEDURE: Rest/Stress MYOCARDIAL PERFUSION SPECT with regad enoson\\XA9\\ CPT CODE: 93234 INDICATION: Chest pain, acute, nonspecific, low probability [...] defect at rest or with stres s(JACC. 2012;59(9):857-81.) Signed: Alvaro Lockhart [facility] Verified Date/Time: 12/04/2016 14:11:13 Reading Location: [address] Reading Room RAD, SPINE, SCOLIOSIS STUDY, 2 OR 3 [id number] 16:17:00Reason for exam:- >scoliosis of lumbar spine, [...] in the lumbar spine. 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, calcified meningioma Discussion: Multiplanar MR imaging of the brain was provided [id number] IV gadolinium administration using T1, T2, FLAIR, [...] Rodriguez Verified Date/Time: 12/03/2016 09:02:27 Reading Location: [facility] B1 C013V Neuro Reading Room [id number] 05:45:00 Test Item Value Reference Range Interpretation Comments MAGNESIUM (BEAKER) (test code = 1.8 mg/dL 1.6-2.6 627) BASIC METABOLIC [id number] 05:45:00 Test Item Value Reference Range Interpretation Comments SODIUM (BEAKER) 136 meq/L 136-145 (test code = 381) POTASSIUM (BEAKER) 3.8 meq/L 3.5-5.1 (test code = 379) CHLORIDE (BEAKER) 102 meq/L 98-107 (test code = 382) CO2 (BEAKER) (test 28 meq/L 22-29 code = 355) BLOOD UREA NITROGEN 11 mg/dL 7-21 (BEAKER) (test code = 354) CREATININE (BEAKER) 0.53 mg/dL 0.57-1.25 L (test code = 358) GLUCOSE RANDOM 89 mg/dL 70-105 (BEAKER) (test code = 652) CALCIUM (BEAKER) 8.9 mg/dL 8.4-10.2 (test code = 697) EGFR (BEAKER) (test 113 mL/min/1.73 ESTIM ATED GFR IS code = 1092) sq m NOT ACCURATE CREATININE CLEARANCE IN PREDICTING GLOMERULAR FILTRATION RATE . ESTIMATED GFR I S NOT APPLICABLE FOR DIALYSIS PATIEN TS. CBC W/PLT COUNT & AUTO [id number] 05:31:00 Test Item Value Reference Range Interpretation Comments WHITE BLOOD CELL COUNT (BEAKER) 7.7 K/ L 3.5-10.5 (test code = 775) RED BLOOD CELL COUNT (BEAKER) 4.03 M/ L 3.93-5.22 (test code = 761) HEMOGLOBIN (BEAKER) (test code = 12.3 GM/DL 11.2-15.7 410) HEMATOCRIT (BEAKER) (test code = 35.9 % 34.1-44.9 411) MEAN CORPUSCULAR VOLUME (BEAKER) 89.1 fL 79.4-94.8 (test code = 753) MEAN CORPUSCULAR HEMOGLOBIN 30.5 pg 25.6-32.2 (BEAKER) (test code = 751) MEAN CORPUSCULAR HEMOGLOBIN CONC 34.3 GM/DL 32.2-35.5 (BEAKER) (test code = 752) RED CELL DISTRIBUTION WIDTH 13.3 % 11.7-14.4 (BEAKER) (test code = 412) PLATELET COUNT (BEAKER) (test 211 K/CU MM 150-450 code = 756) MEAN PLATELET VOLUME (BEAKER) 10.3 fL 9.4-12.3 (test code = 754) NUCLEATED RED BLOOD CELLS 0 /100 WBC 0-0 (BEAKER) (test code = 413) NEUTROPHILS RELATIVE PERCENT 68 % (BEAKER) (test code = 429) LYMPHOCYTES RELATIVE PERCENT 23 % (BEAKER) (test code = 430) MONOCYTES RELATIVE PERCENT 8 % (BEAKER) (test code = 431) EOSINOPHILS RELATIVE PERCENT 1 % (BEAKER) (test code = 432) BASOPHILS RELATIVE PERCENT 0 % (BEAKER) (test code = 437) NEUTROPHILS ABSOLUTE COUNT 5.23 K/ L 1.56-6.13 (BEAKER) (test code = 670) LYMPHOCYTES ABSOLUTE COUNT 1.73 K/ L 1.18-3.74 (BEAKER) (test code = 414) MONOCYTES ABSOLUTE COUNT (BEAKER) 0.61 K/ L 0.24-0.36 H (test code = 415) EOSINOPHILS ABSOLUTE COUNT 0.04 K/ L 0.04-0.36 (BEAKER) (test code = 416) BASOPHILS ABSOLUTE COUNT (BEAKER) 0.01 K/ L 0.01-0.08 (test code = 417) IMMATURE GRANULOCYTES-RELATIVE 1 % 0-1 PERCENT (BEAKER) (test code = 2801) TROPONIN [id number] 01:13:00 Test Item Value Reference Range Interpretation Comments TROPONIN I (BEAKER) (test code = [...] acidosis, acute neurological disease, and persistent tachyarrhythmia.TROPONIN [id number] 19:15:00 Test Item Value Reference Range Interpretation Comments TROPONIN I (BEAKER) (test code = 0.01 ng/mL 0.00-0.03 397) Effective 02/15/2014: Reference Range ChangeNew: 0.00-0.03 Previous [...] acidosis, acute neurological disease, and persistent tachyarrhythmia.TROPONIN [id number] 12:09:00 Test Item Value Reference Range Interpretation Comments TROPONIN I (BEAKER) (test code = 0.02 ng/mL 0.00-0.03 397) Effective 02/15/2014: Reference Range ChangeNew: 0.00-0.03 Previous [...] renalfailure, acidosis, acute neurological disease, and persistent tachyarrhythmia.[id number] 06:18:00 Test Item Value Reference Range Interpretation Comments MAGNESIUM (BEAKER) (test code = 1.7 mg/dL 1.6-2.6 627) BASIC METABOLIC [id number] 06:18:00 Test Item Value Reference Range Interpretation Comments SODIUM (BEAKER) 133 meq/L 136-145 L (test code = 381) POTASSIUM (BEAKER) 3.3 meq/L 3.5-5.1 L (test code = 379) CHLORIDE (BEAKER) 98 meq/L 98-107 (test code = 382) CO2 (BEAKER) (test 27 meq/L 22-29 code = 355) BLOOD UREA NITROGEN 10 mg/dL 7-21 (BEAKER) (test code = 354) CREATININE (BEAKER) 0.57 mg/dL 0.57-1.25 (test code = 358) GLUCOSE RANDOM 92 mg/dL 70-105 (BEAKER) (test code = 652) CALCIUM (BEAKER) 8.8 mg/dL 8.4-10.2 (test code = 697) EGFR (BEAKER) (test 104 mL/min/1.73 ESTIM ATED GFR IS code = 1092) sq m NOT ACCURATE CREATININE CLEARANCE IN PREDICTING GLOMERULAR FILTRATION RATE . ESTIMATED GFR I S NOT APPLICABLE FOR DIALYSIS PATIEN TS. CBC W/PLT COUNT & AUTO [id number] 05:54:00 Test Item Value Reference Range Interpretation Comments WHITE BLOOD CELL COUNT (BEAKER) 9.1 K/ L 3.5-10.5 (test code = 775) RED BLOOD CELL COUNT (BEAKER) 4.08 M/ L 3.93-5.22 (test code = 761) HEMOGLOBIN (BEAKER) (test code = 12.3 GM/DL 11.2-15.7 410) HEMATOCRIT (BEAKER) (test code = 35.9 % 34.1-44.9 411) MEAN CORPUSCULAR VOLUME (BEAKER) 88.0 fL 79.4-94.8 (test code = 753) MEAN CORPUSCULAR HEMOGLOBIN 30.1 pg 25.6-32.2 (BEAKER) (test code = 751) MEAN CORPUSCULAR HEMOGLOBIN CONC 34.3 GM/DL 32.2-35.5 (BEAKER) (test code = 752) RED CELL DISTRIBUTION WIDTH 13.0 % 11.7-14.4 (BEAKER) (test code = 412) PLATELET COUNT (BEAKER) (test 221 K/CU MM 150-450 code = 756) MEAN PLATELET VOLUME (BEAKER) 10.5 fL 9.4-12.3 (test code = 754) NUCLEATED RED BLOOD CELLS 0 /100 WBC 0-0 (BEAKER) (test code = 413) NEUTROPHILS RELATIVE PERCENT 73 % (BEAKER) (test code = 429) LYMPHOCYTES RELATIVE PERCENT 18 % (BEAKER) (test code = 430) MONOCYTES RELATIVE PERCENT 9 % (BEAKER) (test code = 431) EOSINOPHILS RELATIVE PERCENT 0 % (BEAKER) (test code = 432) BASOPHILS RELATIVE PERCENT 0 % (BEAKER) (test code = 437) NEUTROPHILS ABSOLUTE COUNT 6.60 K/ L 1.56-6.13 H (BEAKER) (test code = 670) LYMPHOCYTES ABSOLUTE COUNT 1.65 K/ L 1.18-3.74 (BEAKER) (test code = 414) MONOCYTES ABSOLUTE COUNT (BEAKER) 0.77 K/ L 0.24-0.36 H (test code = 415) EOSINOPHILS ABSOLUTE COUNT 0.02 K/ L 0.04-0.36 L (BEAKER) (test code = 416) BASOPHILS ABSOLUTE COUNT (BEAKER) 0.01 K/ L 0.01-0.08 (test code = 417) IMMATURE GRANULOCYTES-RELATIVE 1 % 0-1 PERCENT (BEAKER) (test code = 2801) [id number] 10:28:00 Test Item Value Reference Range Interpretation Comments MAGNESIUM (BEAKER) (test code = 1.6 mg/dL 1.6-2.6 627) BASIC METABOLIC [id number] 10:28:00 Test Item Value Reference Range Interpretation Comments SODIUM (BEAKER) 130 meq/L 136-145 L (test code = 381) POTASSIUM (BEAKER) 3.8 meq/L 3.5-5.1 (test code = 379) CHLORIDE (BEAKER) 97 meq/L 98-107 L (test code = 382) CO2 (BEAKER) (test 25 meq/L 22-29 code = 355) BLOOD UREA NITROGEN 14 mg/dL 7-21 (BEAKER) (test code = 354) CREATININE (BEAKER) 0.64 mg/dL 0.57-1.25 (test code = 358) GLUCOSE RANDOM 216 mg/dL 70-105 H (BEAKER) (test code = 652) CALCIUM (BEAKER) 8.8 mg/dL 8.4-10.2 (test code = 697) EGFR (BEAKER) (test 91 mL/min/1.73 ESTIMA MALIKA GFR IS code = 1092) sq m NOT ACCURATE CREATININE CLEARANCE IN PREDICTING GLOMERULAR FILTRATION RATE . ESTIMATED GFR I S NOT APPLICABLE FOR DIALYSIS PATIEN TS. LIPID [id number] 10:28:00 Test Item Value Reference Range Interpretation Comments TRIGLYCERIDES (BEAKER) (test code = 66 mg/dL 540) CHOLESTEROL (BEAKER) (test code = 170 mg/dL 631) HDL CHOLESTEROL (BEAKER) (test code 58 mg/dL = 976) LDL CHOLESTEROL CALCULATED (BEAKER) 99 mg/dL (test code = 633) Triglyceride Reference Range: Low Risk <150 Borderline 150-199 High Risk 200-499 Very High Risk >=500Cholesterol Reference Range: Low Risk <200 Borderline 200-239 High Risk >240HDL Cholesterol Reference Range: Low Risk >=60 High Risk <40LDL Cholesterol Reference Range: Optimal <100 Near Optimal 100-129 Borderline 130-159 High 160-189 Very High >=190PROTHROMBIN TIME/[id number] 10:22:00 Test Item Value Reference Range Interpretation Comments PROTIME (BEAKER) (test code = 14.2 seconds 11.7-14.7 759) INR (BEAKER) (test code = 370) 1.1 <=5.9 RECOMMENDED COUMADIN/WARFARIN INR THERAPY RANGESSTANDARD DOSE: 2.0 - 3.0 Includes: PROPHYLAXIS forvenous thrombosis, systemic embolization; TREATMENT for venous thrombosis and/or pulmonary embolus.HIGH RISK: Target INR is 2.5-3.5 for patients with mechanical heart valves.CBC W/PLT COUNT & AUTO DIFFERENTIAL 2016-11-29 10:11:00 Test Item Value Reference Range Interpretation Comments WHITE BLOOD CELL COUNT (BEAKER) 8.9 K/ L 3.5-10.5 (test code = 775) RED BLOOD CELL COUNT (BEAKER) 4.37 M/ L 3.93-5.22 (test code = 761) HEMOGLOBIN (BEAKER) (test code = 13.4 GM/DL 11.2-15.7 410) HEMATOCRIT (BEAKER) (test code = 38.4 % 34.1-44.9 411) MEAN CORPUSCULAR VOLUME (BEAKER) 87.9 fL 79.4-94.8 (test code = 753) MEAN CORPUSCULAR HEMOGLOBIN 30.7 pg 25.6-32.2 (BEAKER) (test code = 751) MEAN CORPUSCULAR HEMOGLOBIN CONC 34.9 GM/DL 32.2-35.5 (BEAKER) (test code = 752) RED CELL DISTRIBUTION WIDTH 13.0 % 11.7-14.4 (BEAKER) (test code = 412) PLATELET COUNT (BEAKER) (test 245 K/CU MM 150-450 code = 756) MEAN PLATELET VOLUME (BEAKER) 10.3 fL 9.4-12.3 (test code = 754) NUCLEATED RED BLOOD CELLS 0 /100 WBC 0-0 (BEAKER) (test code = 413) NEUTROPHILS RELATIVE PERCENT 92 % (BEAKER) (test code = 429) LYMPHOCYTES RELATIVE PERCENT 7 % (BEAKER) (test code = 430) MONOCYTES RELATIVE PERCENT 1 % (BEAKER) (test code = 431) EOSINOPHILS RELATIVE PERCENT 0 % (BEAKER) (test code = 432) BASOPHILS RELATIVE PERCENT 0 % (BEAKER) (test code = 437) NEUTROPHILS ABSOLUTE COUNT 8.14 K/ L 1.56-6.13 H (BEAKER) (test code = 670) LYMPHOCYTES ABSOLUTE COUNT 0.58 K/ L 1.18-3.74 L (BEAKER) (test code = 414) MONOCYTES ABSOLUTE COUNT (BEAKER) 0.10 K/ L 0.24-0.36 L (test code = 415) EOSINOPHILS ABSOLUTE COUNT 0.00 K/ L 0.04-0.36 L (BEAKER) (test code = 416) BASOPHILS ABSOLUTE COUNT (BEAKER) 0.01 K/ L 0.01-0.08 (test code = 417) IMMATURE GRANULOCYTES-RELATIVE 1 % 0-1 PERCENT (BEAKER) (test code = 2251)
--- OUTSIDE RECORDS SUMMARY | 2019-08-17 18:37 | XMS REPORT ---
:1945 Author Organization eClinicalWorks Care Team Providers Name Role Phone [facility], [facility] Provider Role Unavailable Allergies, Adverse Reactions, Alerts [...] Status Dosage System Date Date Carafate ND 47781464774 1 GM Orally Active 1 TABLE T 3-4 TIMES PER DAY Pepto-Bismol ND 64933579569 524 MG/30ML Active 30 ml as Orally PRN needed Calcium NDC 0 200 MG Orally Active 1 tablet Once a day Mupirocin ND 64985275426 2 % Externally Active 1 a pplication Three times a to affecte d day area Spironolactone ND 22691234103 25 MG Orally Active 1 tablet Hydrocortisone ND 05003496302 1 % Externally Dec 10, Dec Active 1 application Twice a day 2018 Nexium ND 08135981101 40 MG Orally Active 1 capsu le Once a day Vitamin D-3 ND 04472273988 5000 UNIT Active 1 tabl et Orally Once a day Prolia ND 42487546738 60 MG/ML Active 60 mg Subcutaneous every 6 months Meclizine HCl ND 89489960341 25 MG Orally June Active 1 tablet as Once a day 23, needed 2018 Zanaflex ND 00155730598 4 MG Orally Active 1 table t as Three times a needed day Oxycodone HCl ND 84346028115 15 MG Orally September Active 1 tablet as every 6 hrs 16, needed 2018 Tizanidine HCl ND 02203489349 4 MG Oral Active TK 1 T PO QD PRN Neomycin-Polymyxi ND 04684566948 3.5-15788-8 Mar 09, Active 4 drops into n-HC Otic Three 2018 affected ear times a day Results No Known Results Summary Purpose eClinicalWorks Submission
--- OUTSIDE RECORDS SUMMARY | 2019-08-17 18:37 | XMS REPORT ---
:1945 Author Organization eClinicalWorks Care Team Providers Name Role Phone Germain [facility] Provider Role Unavailable Allergies, Adverse Reactions, [...] Status Dosage System Date Date Prolia NDC 58499899360 60 MG/ML Active 60 mg Subcutaneous every 6 months Oxycodone HCl NDC 63078117415 15 MG Orally September Active 1 tablet as every 6 hrs 16, needed 2018 Calcium NDC 0 200 MG Orally Active 1 tablet Once a day Tizanidine HCl ND 25779623821 4 MG Oral Active TK 1 T PO QD PRN Pepto-Bismol ND 72653879889 524 MG/30ML Active 30 ml as Orally PRN needed Zanaflex ND 87605251399 4 MG Orally Active 1 table t as Three times a needed day Vitamin D-3 ND 07976271168 5000 UNIT Active 1 tabl et Orally Once a day Mupirocin ND 32541676048 2 % Externally Active 1 a pplication Three times a to affecte d day area Meclizine HCl ND 26550791350 25 MG Orally Mary Ann Active 1 tablet as Once a day 23, needed 2018 Spironolactone ND 74888230838 25 MG Orally Active 1 tablet Hydrocodone-Acet ND 81651263984 10-325 MG Dec Inactive 1 tablet as aminophen Orally every 6 04, needed hrs 2019 Nexium ND 27312437241 40 MG Orally Active 1 capsu le Once a day Carafate ND 59339350378 1 GM Orally Active 1 TABLE T 3-4 TIMES PER DAY Oxycodone HCl ND 59741802285 30 MG Orally Marie Active 1 tablet as every 4 hours 16, needed 2018 Results No Known Results Summary Purpose eClinicalWorks Submission
--- OUTSIDE RECORDS SUMMARY | 2019-08-17 18:37 | XMS REPORT ---
:1945 Author Organization eClinicalWorks Care Team Providers Name Role Phone [facility] Provider Role Unavailable Allergies, Adverse Reactions, Alerts [...] Dosage System Date Date Vitamin D-3 ND 95538672250 5000 UNIT Active 1 tabl et Orally Once a day Calcium NDC 0 200 MG Orally Active 1 tablet Once a day Tizanidine HCl ND 00578868072 4 MG Oral Active TK 1 T PO QD PRN Oxycodone HCl ND 60576792574 15 MG Orally September Active 1 tablet as every 6 hrs 16, needed 2018 Pepto-Bismol ND 83985328910 524 MG/30ML Active 30 ml as Orally PRN needed Mupirocin ND 82416088497 2 % Externally Active 1 a pplication Three times a to affecte d day area Meclizine HCl ND 06453950799 25 MG Orally June Active 1 tablet as Once a day 23, needed 2018 Spironolactone ND 02910688732 25 MG Orally Active 1 tablet Zanaflex ND 13951058358 4 MG Orally Active 1 table t as Three times a needed day Neomycin-Polymyxi ND 53990146259 3.5-17631-9 Mar 09, Active 4 drops into n-HC Otic Three 2018 affected ear times a day Nexium ND 52287306596 40 MG Orally Active 1 capsu le Once a day Carafate ND 38259814357 1 GM Orally Active 1 TABLE T 3-4 TIMES PER DAY Prolia ND 84665899484 60 MG/ML Active 60 mg Subcutaneous every 6 months Results No Known Results Summary Purpose eClinicalWorks Submission
[2019-08-17 20:54] LABS: Absolute Lymphocytes (CBC) 1.1 K/uL (0.7-4.9); Basophils % 0.9 % (0-1.3); Hematocrit 33.2 % (36.0-45.0); MPV 9.2 fL (7.6-11.3); RBC Red Blood Cell Count 4.09 M/uL (3.86-4.86)
[2019-08-17 21:04] LABS: Protime INR 1.2
[2019-08-17 21:11] LABS: Albumin 3.4 g/dL (3.4-5.0); Bilirubin Total 0.6 mg/dL (0.2-1.0); Potassium 4.2 mmol/L (3.5-5.1); Protein, Total 7.7 g/dL (6.4-8.2)
[2019-08-17] MEDS ORDERED: CLINDAMYCIN 600MG/D5W 600 MG/50 ML BAG IV ONE (22:35)
--- NOTE | 2019-08-17 23:12 | EDPHYS ---
Physician Documentation [facility] Name: Arianne Ambriz Age: 73 yrs Sex: Female : 1945 Arrival Date: 08/17/2019 Time: 18:33 Bed 19 Private MD: Willow Grovesh ED Physician Chalo Barrera HPI: 08/17 06:44 This 73 yrs old Female presents to ER via Ambulatory with complaints of Leg tw4 Swelling, Leg Pain. 06:44 The patient presents with swelling. tw4 06:45 The complaints affect the lateral aspect of left calf, left calf, medial aspect of left tw4 calf and left logan, lateral aspect of right calf, right calf, medial aspect of right calf and right logan. Context: The problem was sustained at home. Onset: The symptoms/episode began/occurred 1 week(s) ago. 06:45 Modifying factors: The symptoms are alleviated by nothing. the symptoms are aggravated tw4 by nothing. Associated signs and symptoms: The patient has no apparent associated signs or symptoms. The patient has not experienced similar symptoms in the past. Historical: - Allergies: 08/16 19:06 butorphanol; ph 19:06 Ciprofloxacin (DIZZINESS); ph 19:06 Erythromycin; ph 19:06 GABAPENTIN; ph 19:06 Levaquin; ph 19:06 Neurontin; ph 19:06 Stadol; (cardiac arrest); ph 19:06 TETRACYCLINES; ph - Home Meds: 19:06 atenolol 25 mg Oral tab 0.5 tab once daily [Active]; atenolol 50 mg Oral tab PRN ph [Active]; Flonase 50 mcg/actuation Nasal spsn 1 spray 2 times per day [Active]; morphine 30 mg Oral tab 1 tab every 6 hours [Active]; Nexium 40 mg Oral cpDR 1 cap once daily [Active]; oxycodone 30 mg Oral TR12 [Active]; - PMHx: 19:06 Arthritis; Back pain; William hip bursitis; Chronic pain; Complication of anesthesia; DVT; ph GERD; Hypertension; - PSHx: 19:06 back fractures x 3, shoulder/knee surgeries; ph - Immunization history:: Adult Immunizations unknown. - Social history:: Smoking status: unknown. ROS: 08/17 06:45 Constitutional: Negative for fever, chills, and weight loss, Eyes: Negative for injury, tw4 pain, redness, and discharge, Cardiovascular: Negative for chest pain, palpitations, and edema, Respiratory: Negative for shortness of breath, cough, wheezing, and pleuritic chest pain, Abdomen/GI: Negative for abdominal pain, nausea, vomiting, diarrhea, and constipation. MS/extremity: Positive for swelling. 06:45 MS/extremity: Positive for erythema, tenderness. tw4 Exam: 06:45 Constitutional: This is a well developed, well nourished patient who is awake, alert, tw4 and in no acute distress. Head/Face: Normocephalic, atraumatic. Chest/axilla: Normal chest wall appearance and motion. Nontender with no deformity. No lesions are appreciated. Cardiovascular: Regular rate and rhythm with a normal S1 and S2. No gallops, murmurs, or rubs. Normal PMI, no JVD. No pulse deficits. Respiratory: Lungs have equal breath sounds bilaterally, clear to auscultation and percussion. No rales, rhonchi or wheezes noted. No increased work of breathing, no retractions or nasal flaring. Abdomen/GI: Soft, non-tender, with normal bowel sounds. No distension or tympany. No guarding or rebound. No evidence of tenderness throughout. Neuro: Awake and alert, GCS 15, oriented to person, place, time, and situation. Cranial nerves II-XII grossly intact. Motor strength 5/5 in all extremities. Sensory grossly intact. Cerebellar exam normal. Normal gait. 06:45 Musculoskeletal/extremity: Extremities: erythema, pain. Vital Signs: 08/16 19:06 BP 146 / 83; Pulse 105; Resp 18; Temp 97.7; Pulse Ox 100% on R/A; ph 21:06 BP 140 / 73; Pulse 90; Resp 16; Pulse Ox 98% ; ea 23:13 BP 138 / 70; Pulse 80; Resp 18; Pulse Ox 98% on R/A; ea MDM: 19:18 Patient medically screened. tw4 08/17 06:45 Differential diagnosis: dislocation. Data reviewed: vital signs, nurses notes. Data tw4 reviewed: lab test result(s), CBC, electrolytes, radiologic studies, ultrasound. Data interpreted: Pulse oximetry: Interpretation: normal. Counseling: I had a detailed discussion with the patient and/or guardian regarding: the historical points, exam findings, and any diagnostic results supporting the discharge/admit diagnosis. Special discussion: I discussed with the patient/guardian in detail that at this point there is no indication for admission to the hospital. It is understood, however, that if the symptoms persist or worsen the patient needs to return immediately for re-evaluation. 08/16 19:41 Order name: CBC with Diff tw4 08/16 19:41 Order name: CMP tw4 08/16 18:41 Order name: PT-INR tw4 08/16 18:41 Order name: Ptt, Activated tw4 08/16 19:41 Order name: Extrem Venous W Compression William US tw4 Administered Medications: 08/16 22:41 Drug: Clindamycin 600 mg Route: IVPB; Infused Over: 30 mins; Site: right hand; ea 23:13 Follow up: Response: No adverse reaction; IV Status: Completed infusion; IV Intake: 50mlea Disposition: 08/17/19 23:11 Discharged to Home. Impression: Cellulitis of left lower limb. - Condition is Stable. - Discharge Instructions: Cellulitis, Adult. - Prescriptions for Cleocin 300 mg Oral Capsule - take 1 capsule by ORAL route every 6 hours for 10 days; 40 capsule. Bactrim DS 800- 160 mg Oral Tablet - take 1 tablet by ORAL route every 12 hours for 10 days; 20 tablet. - Medication Reconciliation Form, Thank You Letter, Antibiotic Education, Prescription Opioid Use form. - Problem is new. - Symptoms have improved. Signatures: Dispatcher [employer] Mila Mace RN RN ph Antunez, Elena, RN RN ea Wadley, Terrence, MD MD tw4 Corrections: (The following items were deleted from the chart) 23:24 23:11 08/17/2019 23:11 Discharged to Home. Impression: Cellulitis of left lower limb. ea Condition is Stable. Forms are Medication Reconciliation Form, Thank You Letter, Antibiotic Education, Prescription Opioid Use. Problem is new. Symptoms have improved. tw4
--- NOTE | 2019-08-17 23:12 | ER ---
Nurse's Notes [facility] Name: Arianne Ambriz Age: 73 yrs Sex: Female : 1945 Arrival Date: 08/17/2019 Time: 18:33 Bed 19 Private MD: Stu Groves Diagnosis: Cellulitis of left lower limb Presentation: 08/16 19:06 Chief complaint: Patient states: Bilateral leg pain and swelling, reports hx of ph cellulitis, denies fever N/V/D. Coronavirus screen: Patient denies a cough. Patient denies shortness of breath or difficulty breathing. Patient denies measured and/or subjective temperature greater than 100.4F prior to today's visit. Patient denies travel on a cruise ship or to a country the [facility] currently lists as an affected area. Patient denies contact with known and/or suspected case of COVID-19. Ebola Screen: No symptoms or risks identified at this time. Initial Sepsis Screen: Does the patient meet any 2 criteria? No. Patient's initial sepsis screen is negative. Does the patient have a suspected source of infection? No. Patient's initial sepsis screen is negative. Risk Assessment: Do you want to hurt yourself or someone else? Patient reports no desire to harm self or others. Onset of symptoms was August 17, 2019. 19:06 Method Of Arrival: Ambulatory ph 19:06 Acuity: THADDEUS 3 ph Historical: - Allergies: 19:06 butorphanol; ph 19:06 Ciprofloxacin (DIZZINESS); ph 19:06 Erythromycin; ph 19:06 GABAPENTIN; ph 19:06 Levaquin; ph 19:06 Neurontin; ph 19:06 Stadol; (cardiac arrest); ph 19:06 TETRACYCLINES; ph - Home Meds: 19:06 atenolol 25 mg Oral tab 0.5 tab once daily [Active]; atenolol 50 mg Oral tab PRN ph [Active]; Flonase 50 mcg/actuation Nasal spsn 1 spray 2 times per day [Active]; morphine 30 mg Oral tab 1 tab every 6 hours [Active]; Nexium 40 mg Oral cpDR 1 cap once daily [Active]; oxycodone 30 mg Oral TR12 [Active]; - PMHx: 19:06 Arthritis; Back pain; Lucinda hip bursitis; Chronic pain; Complication of anesthesia; DVT; ph GERD; Hypertension; - PSHx: 19:06 back fractures x 3, shoulder/knee surgeries; ph - Immunization history:: Adult Immunizations unknown. - Social history:: Smoking status: unknown. Screenin:28 Abuse screen: Denies threats or abuse. Nutritional screening: No deficits noted. ea Tuberculosis screening: No symptoms or risk factors identified. Fall Risk Ambulatory Aid- Crutches/Cane/Walker (15 pts). Assessment: 20:27 General: Appears uncomfortable, Behavior is calm, cooperative, appropriate for age. ea Pain: Complains of pain in back. Neuro: Level of Consciousness is awake, alert, obeys commands, Oriented to person, place, time, situation. Cardiovascular: Patient's skin is warm and dry. Respiratory: Airway is patent Respiratory effort is even, unlabored, Respiratory pattern is regular, symmetrical. Derm: redness and swelling to lucinda lower extremities. 21:05 Reassessment: Patient and/or family updated on plan of care and expected duration. Pain ea level reassessed. Patient is alert, oriented x 3, equal unlabored respirations, skin warm/dry/pink. 21:56 Reassessment: Patient and/or family updated on plan of care and expected duration. Pain ea level reassessed. Patient is alert, oriented x 3, equal unlabored respirations, skin warm/dry/pink. Ultrasound at bedside. 23:13 Reassessment: Patient and/or family updated on plan of care and expected duration. Pain ea level reassessed. Patient is alert, oriented x 3, equal unlabored respirations, skin warm/dry/pink. 23:23 Reassessment: Patient and/or family updated on plan of care and expected duration. Pain ea level reassessed. Patient is alert, oriented x 3, equal unlabored respirations, skin warm/dry/pink. Discharge instruction given to patient, verbalized the understanding of instruction. Pt left ED ambulatory tolerating well. Vital Signs: 19:06 BP 146 / 83; Pulse 105; Resp 18; Temp 97.7; Pulse Ox 100% on R/A; ph 21:06 BP 140 / 73; Pulse 90; Resp 16; Pulse Ox 98% ; ea 23:13 BP 138 / 70; Pulse 80; Resp 18; Pulse Ox 98% on R/A; ea ED Course: 18:33 Patient arrived in ED. ag5 18:34 Varinder Johnson MD is Private Physician. ag5 18:34 Stu Groves DO is Private Physician. ag5 19:11 Triage completed. ph 19:11 Arm band placed on. ph 19:18 Chalo Barrera MD is Attending Physician. tw4 20:27 Stefani Miller, RN is Primary Nurse. ea 20:29 Patient has correct armband on for positive identification. Placed in gown. Bed in low ea position. Call light in reach. Side rails up X 1. 20:35 Missed attempt(s): 22 gauge in right antecubital area. Bleeding controlled, band aid ea applied, catheter tip intact. Missed attempt(s): 20 gauge in left antecubital area. Bleeding controlled, band aid applied, catheter tip intact. 20:40 Inserted saline lock: 24 gauge in right hand, using aseptic technique. ,using aseptic ea technique. Per [facility] dispensary technician Blood collected. 23:14 No provider procedures requiring assistance completed. ea 23:22 IV discontinued, intact, bleeding controlled, No redness/swelling at site. Pressure ea dressing applied. 08/17 07:12 Extrem Venous W Compression Lucinda US In Process Unspecified. EDMS Administered Medications: 08/16 22:41 Drug: Clindamycin 600 mg Route: IVPB; Infused Over: 30 mins; Site: right hand; ea 23:13 Follow up: Response: No adverse reaction; IV Status: Completed infusion; IV Intake: 50mlea Intake: 23:13 IV: 50ml; Total: 50ml. ea Outcome: 23:11 Discharge ordered by . tw4 23:14 Condition: stable ea 23:22 Discharged to home ambulatory, with significant other. ea 23:22 Discharge instructions given to patient, Instructed on discharge instructions, follow up and referral plans. medication usage, Demonstrated understanding of instructions, follow-up care, medications, Prescriptions given X 2. 23:24 Patient left the ED. ea Signatures: Dispatcher [employer] EDMS Mila Hung RN RN ph Antunez, Elena, RN Chalo Caldwell ea, MD MD tw4 Gopal Payan 5
[2019-08-17 23:50] VITALS: TEMP 97.7
[2019-08-17 23:52] VITALS: O2SAT 98
[2019-08-17 23:53] VITALS: BP 138/70
--- NOTE | 2019-08-18 08:21 | RAD REPORT ---
EXAM DESCRIPTION: US - Extrem Venous W Compress William - 08/18/2019 7:11 am CLINICAL HISTORY: SWELLING Bilateral leg edema and swelling. COMPARISON: Extrem Venous W Compress William dated 05/07/2019 TECHNIQUE: Real-time sonographic interrogation of the left and right lower extremity deep venous sys tems was performed. FINDINGS: Normal compressibility, flow augmentation, phasic flow and spontaneous flow is identified in both the left and right lower extremity deep venous systems. IMPRESSION: No sonographic evidence of left or right lower extremity deep venous thrombosis.
== END 2019-08-17 23:24 | disposition home or self-care (01) ==
LOC: ER 18:31
DX: L03.116 Cellulitis of left lower limb (principal); I10 Essential (primary) hypertension; Z88.1 Allergy status to other antibiotic agents; Z88.3 Allergy status to other anti-infective agents; Z88.5 Allergy status to narcotic agent; Z88.8 Allergy status to other drugs, medicaments and biological substances; Z86.718 Personal history of other venous thrombosis and embolism
CPT/HCPCS: 36415; 80053; 85025; 85610; 85730; 93970; 96365; 99284

== ENCOUNTER 2019-08-19 21:22 | Emergency (ER) | payer OTHER, BC ==
--- OUTSIDE RECORDS SUMMARY | 2019-08-19 21:24 | XMS REPORT | Clinical Summary ---
:1945 Author Organization [facility] Address [address] [place] [address] Care Team Providers Name Role Phone Sven [...] Not on file Results Not on fileafter 08/18/2018 Insurance Payer Benefit Plan / Subscriber ID Type Phone Address Group MEDICARE MEDICARE A B xxxxxxxxxx Medicare BLUE CROSS/BLUE BCBS INDEMNITY [place] xxxxxxxxxxxx PPO [address] [facility] [place] [address] (Home) [place] [address] Advance Directives For more information, please contact:[facility], [place] [phone] Code Status Date Activated Date Inactivated Comments Full Code 11/29/2016 5:49 AM 12/09/2016 3:06 PM This code status was determined by: Patient Code ONE 06/10/2013 12:15 PM 06/10/2013 3:46 PM All possib le means of support, including: cardi ac massage, mechanical ventilation, and defibrillation will be used to suppo rt life.
--- OUTSIDE RECORDS SUMMARY | 2019-08-19 21:24 | XMS REPORT | Clinical Summary ---
:1945 Author Organization [facility] Address [address] [place] [address] Care Team Providers Name Role Phone Asked, [...] unspecified back pain laterality, unspecified chronicity after 08/18/2018 Family History Medical History Relation Name Comments [...] travel history available. 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 Temperature - - Respiratory Rate - - Oxygen Saturation - - Inhaled Oxygen Concentration - - Weight - - Height - - Body Mass Index - - Plan of Treatment Date Type Specialty Care Team Description 10/14/2019 Telemedicine Physical [facility] [address] [facility] [address] [place], [place] [address] [phone] Health Maintenance Due Date Last Done Comments COLONOSCOPY SCREENING 10/27/1993 SHINGLES VACCINES (#1) 10/27/1993 65+ PNEUMOCOCCAL VACCINE (1 of 2 - PCV13) 10/27/2008 BREAST CANCER SCREENING 10/16/2018 10/16/2016 INFLUENZA VACCINE 10/30/2019 04/21/2017 Procedures Procedure Name Priority Date/Time Associated Diagnosis Comme nts DRUG SCREEN Routine 04/19/2019 DRUG SCREEN Routine 03/16/2019 after 08/18/2018 Results Drug Screen (04/19/2019)Only the most recent of2 resultswithin the time period is included. Narrative Performed At This result has an attachment that is no t available. after 08/18/2018 Insurance Payer Benefit Plan / Subscriber ID Effective Phone Address T ype Group Dates MEDICARE MEDICARE PART A xxxxxxxxxxx 2008-Pres [place], [place] Medicare AND B ent BCBS COMMERCIAL BCBS MEDICARE xxxxxxxxxxxx 2008-Pres Commercial SUPPLEMENT ent Advance Directives For more information, please contact: [phone] Type Date Recorded Patient Licensed Clinical Psychologist Explanati on Advance Directives, Living Will 09/06/2016 12:10 PM and Medical Power of Hose Handler
--- OUTSIDE RECORDS SUMMARY | 2019-08-19 21:26 | XMS REPORT ---
:1945 [facility] Organization [facility] t Address [address] [place] [address] Care Team Providers Name Role Phone Asked, Pcp Primary Care Physician Unavailable King RICO Attending Clinician Unavailable Elisa ALVAREZ, H. Attending Clinician Afshin GÓMEZ, T Attending Clinician Unavailable Cornell MCMULLEN Attending Clinician Unavailable RAEANN STEWARD Attending Clinician Unavailable RAEANN STEWARD Admitting Clinician Unavailable Payers Payer Name Policy Policy Number Effective Expiration Source Type Date Date MEDICAREMEDICARE PART xxxxxxxxxxx 2008 [facility] A AND 00:00:00 Pent[place]ost[place]03/[place] x[place]xxx 2008 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 6-14 [place] thrombosis thrombosis 00:00: st (DVT) of (DVT) of 00 proximal proximal vein of vein of left lower left lower extremity extremity Pathologic Pathologic Disease Active [facility] lara 1-12 Methodi fracture fracture 00:00: st of right of right 00 radius due radius due to to osteoporos osteoporos is, is, sequela sequela Chronic Chronic Disease Active [facility] prescripti prescripti 8-10 Me thodi on opiate on opiate 00:00: st use use 00 Bilateral Bilateral Disease Active Faina brewern hip hip 8-10 Methodi bursitis bursitis 00:00: st 00 Chronic Chronic Disease Active [facility] cervical cervical 7- Method i radiculopa radiculopa 00:00: st thy thy 00 Scoliosis Scoliosis Disease Active Faina ston 7 Methodi 00:00: st 00 Myalgia Myalgia Disease Active [facility] 7 Methodi 00:00: st 00 Back pain Back pain Disease Active Faina ston 3 Methodi 00:00: st 00 Cervicalgi Cervicalgi Disease Active [place] a 3 Methodi 00:00: st 00 Lumbar Lumbar Disease Active [place] radicular radicular 3 [place] pain pain 00:00: st 00 Hip pain, Hip pain, Disease Active Faina ston chronic chronic 3 Methodi 00:00: st 00 Lumbar Lumbar Disease Active [facility] disc disc 3 Methodi disease disease 00:00: st 00 Venous Venous Problem Active [facility] insufficie insufficie Stacy kes - ncy of ncy of [facility] both lower both lower l extremitie extremitie Ou tpati s s ent Clinics Osteoporos Osteoporos Problem Active [facility] is is [facility] HTN HTN Problem Active [facility] (hypertens (hypertens Stacy kes - ion) ion) [facility] Adjustment Adjustment Problem Active C [facility] disorder, disorder, Luke s - unspecifie unspecifie Me moria d d l [facility] History of History of Problem Active [facility] fall fall [facility] Other Other Problem Active [facility] pulmonary pulmonary Luke s - embolism embolism Memori a without without l acute cor acute cor Outp ati pulmonale, pulmonale, en t unspecifie unspecifie Cl inics d d chronicity chronicity Anxiety Anxiety Problem Active [facility] GERD GERD Problem Active [facility] (gastroeso (gastroeso Stacy kes - phageal phageal Memoria reflux reflux l disease) disease) Outpat i ent Clinics Flu Flu Problem Active [facility] vaccine vaccine [facility] need need [facility] Allergic Allergic Problem Active [facility] Chronic Chronic Problem Active [facility] back pain back pain [facility] - [facility] 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 [facility] Anorexia Anorexia Problem Active [facility] Sleep Sleep Problem Active [facility] apnea, apnea, [facility] - obstructiv obstructiv Me moria e e l [facility] Constipati Constipati Problem Active C [facility] on on [facility] Iron Iron Problem Active [facility] deficiency deficiency Stacy kes - anemia, anemia, Memoria unspecifie unspecifie l d iron d iron Outpati deficiency deficiency en t anemia anemia Clinics type type Anemia due Anemia due Problem Active C [facility] to other to other [facility] - cause, not cause, not Me moria classified classified l [facility] Pruritic Pruritic Problem Active [facility] t dermatitis dermatitis Stacy kes - [facility] Varicose Varicose Problem Active [...] to drug Tolterod Propensi Active Nausea Only 2016 [facility] ine ty to 2-12 Methodi adverse 00:00: st reaction 00 s to drug Adhesive Propensi Active Itching, Itching & H uche Tape-Jada ty to Swelling 8-20 swellingI Met hodi icones adverse 00:00: tching & st reaction 00 swelling s to drug Butorpha Propensi Active Anaphylaxis, "brings [facility] nol ty to Palpitations 8-20 on Meth [place] Tartrate adverse 00:00: cardiac st reaction 00 arrest" s to drug Clarithr Propensi Active Palpitations High [place] omycin ty to 8-20 heart Methodi adverse [...] Date Stop Date Source Natural father Cancer [facility] Me thodist Natural mother Heart attack [place] Pentecostal Natural mother Hypertension [place] Pentecostal Natural mother Osteoporosis [place] Pentec[facility]al Paternal grandfather Stroke [place] Paternal grandmother Stroke [place] Pentecostal Natural sister Diabetes [facility] thodist Social History Social Habit Start Date Stop Date Quantity Comments Source History of tobacco Cigarette Smoker [facility] use Pentecostal Sex Assigned At [facility]al Cigarettes smoked 2019-05-25 2019-05-25 [facility] current (pack per 00:00:00 00:00:[address] day) - Reported Cigarette 2019-05-25 2019-05-25 [facility] pack-years 00:00:00 00:00:00 Pentecostal Alcohol intake 2019-05-25 2019-05-25 Current [facility] 00:00:00 00:00:00 non-drinker of Pentecostal alcohol (finding) Smoking Status Start Date Stop Date Source Former smoker 2019-05-25 00:00:2019-05-25 00:00:00 [place] Pentecostal Medications Ordered Filled Start Stop Current Ordering Indication Dosage Frequency Signature Comments Components Source Medication Medication Date Date Medication? Clinician (SIG) Name Name oxyCODone 2019- 2020- Yes chronic 20mg Q.25D Take 1 [place] (ROXICODONE 4-30 05-30 pain tablet (20 M ethodi ) 20 MG 00:00: 23:59 mg total) st tablet 00 :00 by mouth 4 (four) times a day for 30 days .chronic pain. oxyCODone 2019-0 2020- No chronic 20mg Q.25D Take 1 [place] (ROXICODONE 4-30 04-24 pain tablet (20 M ethodi ) 20 MG 00:00: 00:00 mg total) st tablet 00 :00 by mouth 4 (four) times a day for 30 days .chronic pain. lisinopril 2020-0 Yes lisinopril [place] (PRINIVIL) 4-20 5 mg Methodi 5 mg tablet 14:04: tablet st 21 DULoxetine 2020-0 Yes duloxetine [place] (CYMBALTA) 4-20 20 mg Methodi 20 MG 14:04: capsule,de st capsule 21 layed release tiZANidine 2020-0 Yes 4mg Q8H Take 1 [place] (ZANAFLEX) 4-20 tablet (4 [place] 4 MG tablet 00:00: mg total) s t 00 by mouth every 8 (eight) hours as needed for muscle spasms. tiZANidine 2020-0 2020- No 4mg Q8H Take 1 [place] (ZANAFLEX) 3-05 04-20 tablet (4 Met hodi 4 MG tablet 00:00: 00:00 mg total) st 00 :00 by mouth every 8 (eight) hours as needed for muscle spasms. esomeprazol 2020-0 Yes 40mg QD Take 40 mg Toney e (NexIUM) 2-25 by mouth Metho di 40 MG 11:28: daily st capsule 41 before breakfast. spironolact 2020-0 Yes spironolac [place] one 2-25 tone 25 mg Methodi (ALDACTONE) 11:28: tablet st 25 MG 41 tablet oxyCODone 2019- No acute pain 15mg Q6H Take 15 mg [place] (ROXICODONE 1-20 -20 by mouth Met hodi ) 15 MG 14:01: 00:[address] immediate 37 :00 (six) release hours as tablet needed for moderate pain .Acute Pain. tiZANidine 2019- No 4mg Q.38737145 Take 1 [place] (ZANAFLEX) 1-20 03-05 [id number] tablet (4 Methodi 4 MG tablet 00:00: 00:00 3D mg total) st 00 :00 by mouth 3 (three) times a day. oxyCODone 2019- No chronic 20mg Q.25D Take 1 [place] (ROXICODONE 1 02-06 pain tablet (20 M ethodi ) 20 MG 00:00: 23:59 mg total) st tablet 00 :00 by mouth 4 (four) times a day for 30 days .chronic pain. Max Daily Amount: 80 mg tiZANidine 2018-03- No 4mg QD Take 1 [place] (ZANAFLEX) 05-19 tablet (4 Met hodi 4 MG tablet 00:00: 00:00 mg total) st 00 :00 by mouth daily for 90 days. oxyCODone-a 2018-03- No oxycodone- [place] cetaminophe 2-17 12-17 acetaminop M ethodi n 13:37: 00:[address] (PERCOCET) 33 :00 [...] Clinics tiZANidine 2018- No [place] (ZANAFLEX) 7- 07-16 Methodi 4 MG tablet 00:00: 00:00 [...] Clinics ELIQUIS 5 Yes Toney mg tablet 5-28 Methodi 00:00: st 00 alendronate 2016-03 Yes [place] (FOSAMAX) 0-12 Methodi 70 MG 00:00: st tablet 00 atenolol 2015-03 Yes 25mg QD 25 mg [place] (TENORMIN) 1-23 daily. Methodi 50 MG 00:00: st tablet 00 sucralfate 2015-03 2019- No as needed. [place] (CARAFATE) 0-26 07-16 Methodi 1 gram 00:00: 00:00 st tablet 00 :00 VENTOLIN 2019- No [place] HFA 90 9-12 07-16 Methodi mcg/actuati 00:00: 00:00 st on inhaler [...] Yes Stu [address] [place] as needed [facility] [...] - n to Memoria affected l area [facility] Spironolact Spironolact Yes Stu [address] one one [place] [facility] l [facility] Tizanidine Tizanidine Yes Stu TK [address] HCl HCl [place] QD PRN [facility] l [facility] ent Clinics Vital Signs Vital Name Observation Time Observation Value Comments Source Systolic blood 2019-05-25 11:28:00 134 mm[Hg] [place] [facility] pressure Diastolic blood 2019-05-25 11:28:00 93 mm[Hg] [place] Pentecostal pressure Heart rate 2019-05-25 11:28:00 83 /min Feng Cummins Procedures Procedure Date / Time Performed Performing Clinician Sour e DRUG SCREEN 2019-04-19 00:00:00 Daryl Hare DRUG SCREEN 2019-03-16 00:00:00 Daryl Hare Plan of Care Planned Activity Planned Date Details Comments Source Future Scheduled 2019-10-30 INFLUENZA VACCINE [place] [facility] Test 00:00:00 [code = INFLUENZA VACCINE] Future Scheduled 2018-10-16 BREAST CANCER [place] thodist Test 00:00:00 SCREENING [code = BREAST CANCER SCREENING] Future Scheduled 2008-10-27 65+ PNEUMOCOCCAL [place] [facility]al Test 00:00:00 VACCINE (1 of 2 - PCV13) [code = 65+ PNEUMOCOCCAL VACCINE (1 of 2 - PCV13)] Future Scheduled 1993-10-27 COLONOSCOPY SCREENING [facility] Pentecostal Test 00:00:00 [code = COLONOSCOPY SCREENING] Future Scheduled 1993-10-27 SHINGLES VACCINES [place] [facility]ec[facility]al Test 00:00:00 (#1) [code = SHINGLES VACCINES (#1)] Medication 2019-09-[address] [place] [address] 00:00:00 (ROXICODONE) 20 MG tablet [code = 5311044] Medication 2019-08-[address] [place] [facility] [address] 00:00:00 (ROXICODONE) 20 MG tablet [code = 2837955] Encounters Start End Encounter Admission Attending Care Care Encounter Source Date/Time Date/Time Type Type Clinicians Facility Department ID 2019-08-05 2019-08-05 [facility] [id number] [facility] 14:58:00 14:58:00 [place] [facility] Medicine Medicine Outpati ent Clinics 2019-07-22 2019-07-22 [facility] [id number] [address] 12:29:00 12:29:[address] [place] [facility] Medicine Outpati ent Clinics 2019-07-19 2019-07-19 Outpatient ELISA [facility] [id number] 468 [place] 00:00:00 00:00:00 DARYL [address] 2019-05-28 2019-05-28 [facility] [id number] 08:12:00 08:12:[address] [facility] Medicine Outpati ent Clinics 2019-05-25 2019-05-25 Outpatient ELISA [facility] [id number] [address] [place] [address] 00:00:00 00:00:00 DARYL [address] 2019-05-20 2019-05-20 [facility] [id number] 09:00:00 09:00:[address] [facility] Medicine Outpati ent Clinics 2019-04-28 2019-04-28 [facility] [id number] 16:26:00 16:26:[address] [facility] Medicine Outpati ent Clinics 2019-03-09 2019-03-09 [facility] [id number] 16:45:00 16:45:[address] [facility] Medicine Outpati ent Clinics 2019-03-03 2019-03-03 [facility] [id number] 15:38:00 15:38:00 [place] Fliplingo s [employer] [facility] Medicine l Medicine Outpati ent Clinics 2019-03-03 2019-03-03 [facility] [id number] 13:00:00 13:00:[address] [facility] Medicine Outpati ent Clinics 2019-01-27 2019-01-27 [facility] [id number] 11:24:00 11:24:00 t [employer] [facility] Medicine Medicine Outpati ent Clinics 2019-01-07 2019-01-07 [facility] [id number] 11:56:00 11:56:[address] Luke s - Drive [facility] Medicine Outpati ent Clinics 2019-01-04 2019-01-04 [facility] [id number] 16:00:00 16:00:[address] Luke s - Drive [facility] Medicine Outpati ent Clinics 2018-12-23 2018-12-23 [facility] [id number] 14:16:00 14:16:00 [place] [employer] Luke s - Drive [facility] Medicine Outpati ent Clinics 2018-12-17 2018-12-17 [facility] [id number] 11:29:00 11:29:00 [place] [employer] Luke s - Drive [facility] Medicine Outpati ent Clinics 2018-12-14 2018-12-14 [facility] [id number] 16:12:00 16:12:00 [place] [employer] Luke s - Drive [facility] Medicine Outpati ent Clinics 2018-12-02 2018-12-02 [facility] [id number] 14:45:00 14:45:00 [place] [employer] Luke s - Drive [facility] Medicine Outpati ent Clinics 2018-11-23 2018-11-23 [facility] [id number] 10:51:00 10:51:00 [place] [employer] Luke s - Drive [facility] Medicine Outpati ent Clinics 2018-10-20 2018-10-20 [facility] [id number] 15:40:00 15:40:00 [place] [employer] Luke s - Drive [facility] Medicine Outpati ent Clinics 2018-08-11 2018-08-11 [facility] [id number] 08:59:00 08:59:00 [place] [employer] Luke s - Drive [facility] Medicine Outpati ent Clinics 2018-08-10 2018-08-10 [facility] [id number] 15:55:00 15:55:[address] Luke s - Drive [facility] Medicine l Medicine Outpati ent Clinics 2018-07-29 2018-07-29 [facility] [id number] 09:31:00 09:31:[address] Luke s - Drive [facility] Medicine l Medicine Outpati ent Clinics 2018-07-21 2018-07-21 [facility] [id number] 11:45:00 11:45:[address] Luke s - Drive [facility] Medicine l Medicine Outpati ent Clinics 2018-07-14 2018-07-14 [facility] [id number] 13:31:00 13:31:[address] Luke s - Drive [facility] l Medicine Outpati ent Clinics 2018-07-01 2018-07-01 [facility] [id number] 14:10:00 14:10:00 [place] [employer] Luke s - Drive [facility] Medicine Outpati ent Clinics 2018-07-01 2018-07-01 [facility] [id number] 11:45:00 11:45:[address] Luke s - Drive [facility] Medicine l Medicine Outpati ent Clinics 2018-06-04 2018-06-04 [facility] [id number] 11:30:00 11:30:00 [place] [employer] LuEdgar s - Drive [facility] Medicine l Medicine Outpati ent Clinics 2018-03-18 2018-03-18 [facility] [id number] 14:08:00 14:08:[address] Luke s - Drive [facility] Medicine l Medicine Outpati ent Clinics 2018-01-12 2018-01-12 [facility] [id number] 08:45:00 08:45:[address] Luke s - Drive [facility] l Medicine Outpati ent Clinics 2018-01-05 2018-01-05 [facility] [id number] 14:00:00 14:00:00 [place] [employer] Luke s - Drive [facility] Medicine Medicine Outpati ent Clinics Results Test Description Test Time Test Comments Results Result Sourc e Comments ANG, KYPHOPLASTY, 2016-12-11 What level(s) FINAL REPORT PATIENT LUMBAR, INITIAL 08:42:00 should be ID: [id number] performed->L4-5 HISTORY: L4 and L5 Reason for [...] Date/Time: 12/11/2016 08:42:31 Reading Location: [place] [address] Angio Body Reading Room AND CREATININE 2016-12-08 06:18:00 Test Item Value Reference Range Interpretation Comme nts BLOOD UREA NITROGEN 14 mg/dL 7-21 (BEAKER) (test code = 354) CREATININE (BEAKER) (test 0.58 mg/dL 0.57-1.25 code = 358) EGFR (BEAKER) (test code = 102 mL/min/1.73 sq m ESTIMATED GFR IS NOT 1092) ACCURATE CRE ATININE CLEARANCE IN ME EDICTING GLOMERULAR FILT RATION RATE. ESTIMATED GFR [...] (BEAKER) (test code = 413) BASIC METABOLIC [id number] 06:49:00 Test Item Value Reference Range Interpretation [...] NOT APPLICABLE FOR DIALYSIS PATIEN TS. PROTHROMBIN [id number] 06:31:00 Test Item Value Reference Range Interpretation Comments PROTIME (BEAKER) (test code = 13.4 seconds 11.7-14.7 759) INR (BEAKER) (test code = 370) 1.0 <=5.9 RECOMMENDED COUMADIN/WARFARIN INR THERAPY RANGESSTANDARD DOSE: 2.0 - 3.0 Includes: PROPHYLAXIS forvenous thrombosis, systemic embolization; TREATMENT for venous thrombosis and/or pulmonary embolus.HIGH RISK: Target INR is 2.5-3.5 for patients with mechanical heart valves.[id number] 06:31:00 Test Item Value Reference Range Interpretation Comments PARTIAL THROMBOPLASTIN TIME 26.2 seconds 22.5-36.0 (BEAKER) (test code = 760) CBC W/PLT COUNT & AUTO [id number] 06:23:00 Test Item Value Reference Range Interpretation [...] 0-1 PERCENT (BEAKER) (test code = 2801) [facility] IMAGING, MULTI, PHARM, [id number] 14:11:00Please do D SPECT camera for this patient Reason for exam:->Chest PainFINAL REPORT PROCEDURE: Rest/Stress MYOCARDIAL PERFUSION SPECT with regad enoson\\XA9\\ CPT CODE: 44715 INDICATION: Chest pain, acute, nonspecific, low probability [...] with stres s(JACC. 2012;59(9):857-81.) Signed: Alvaro Lockhart MDReport Verified Date/Time: 12/04/2016 14:11:13 Reading Location: [address] Reading Room RAD, SPINE, SCOLIOSIS STUDY, 2 OR 3 [id number] 16:17:00Reason for exam:- >scoliosis of lumbar spine, [...] MDReport Verified Date/Time: 12/03/2016 16:17:14 Reading Location: [facility] Radiology ReadingRoom MR, BRAIN, [id number] 09:02:00FINAL REPORT MRI brain with and without contrast Comparison: None Reason for exam: Neoplasm, MEAT COOLER primary, calcified meningioma Discussion: Multiplanar MR imaging of the brain was provided [id number]-[id number] IV gadolinium administration using T1, T2, FLAIR, [...] evaluate for extra-axial calcification. Signed: Taylor Rodriguez MDReport Verified Date/Time: 12/03/2016 09:02:27 Reading Location: [facility] B1 C013V Neuro Reading Room [id number] 05:45:00 Test Item Value Reference Range Interpretation Comments MAGNESIUM (BEAKER) (test code = 1.8 mg/dL 1.6-2.6 627) BASIC METABOLIC [id number] 05:45:00 Test Item Value Reference Range Interpretation [...] PATIEN TS. CBC W/PLT COUNT & AUTO [id number] 05:31:00 Test Item Value Reference Range Interpretation [...] PERCENT (BEAKER) (test code = 2801) TROPONIN [id number] 01:13:00 Test Item Value Reference Range Interpretation [...] acidosis, acute neurological disease, and persistent tachyarrhythmia.TROPONIN [id number] 19:15:00 Test Item Value Reference Range Interpretation [...] acidosis, acute neurological disease, and persistent tachyarrhythmia.TROPONIN [id number] 12:09:00 Test Item Value Reference Range Interpretation [...] renalfailure, acidosis, acute neurological disease, and persistent tachyarrhythmia.[id number] 06:18:00 Test Item Value Reference Range Interpretation Comments MAGNESIUM (BEAKER) (test code = 1.7 mg/dL 1.6-2.6 627) BASIC METABOLIC [id number] 06:18:00 Test Item Value Reference Range Interpretation [...] PATIEN TS. CBC W/PLT COUNT & AUTO [id number] 05:54:00 Test Item Value Reference Range Interpretation [...] 0-1 PERCENT (BEAKER) (test code = 2801) [id number] 10:28:00 Test Item Value Reference Range Interpretation Comments MAGNESIUM (BEAKER) (test code = 1.6 mg/dL 1.6-2.6 627) BASIC METABOLIC [id number] 10:28:00 Test Item Value Reference Range Interpretation [...] NOT APPLICABLE FOR DIALYSIS PATIEN TS. LIPID [id number] 10:28:00 Test Item Value Reference Range Interpretation [...] Borderline 130-159 High 160-189 Very High >=190PROTHROMBIN [id number] 10:22:00 Test Item Value Reference Range Interpretation [...] % 0-1 PERCENT (BEAKER) (test code = 7808)
[2019-08-19] MEDS ORDERED: HYDROMORPHONE HCL 0.5 MG/0.5 ML INJ ONE (21:45)
[2019-08-19] MEDS ORDERED: ONDANSETRON 4 MG/2 ML VIAL ONE (21:45)
[2019-08-19] MEDS ORDERED: KETAMINE HCL 500 MG/5 ML VIAL ONE (21:51)
[2019-08-19] MEDS ORDERED: NA CHLORIDE 0.9% 100 ML IV ONE (21:51)
[2019-08-19] MEDS ORDERED: HYDROMORPHONE HCL 1 MG/ML INJ ONE ×2 (21:59→23:15)
[2019-08-19 22:23] LABS: Potassium 3.5 mmol/L (3.5-5.1)
[2019-08-19 22:34] LABS: Basophils % 0.8 % (0-1.3); Hematocrit 32.6 % (36.0-45.0); Lymphocytes % 23.4 % (15.3-44.8); RBC Red Blood Cell Count 4.11 M/uL (3.86-4.86)
[2019-08-19] MEDS ORDERED: NA CHLORIDE 0.9% 1,000 ML ONE (23:56)
[2019-08-20 00:01] LABS: Blood Morphology Comment NOT SEEN (NOT SEEN); Platelet Estimate ADEQ
--- NOTE | 2019-08-20 00:08 | ER ---
Nurse's Notes [facility] Name: Arianne Ambriz Age: 73 yrs Sex: Female : 1945 Arrival Date: 08/19/2019 Time: 21:23 Bed 3 Private MD: Diagnosis: Displaced fracture of greater trochanter of right femur Presentation: 08/18 21:20 Note a trauma alert has been called. sg 21:20 Mechanism of Injury: Fall from standing position. Trauma event details: Injury occurred mg2 in the [facility], Injury occurred: at home. Injury occurred: August 19, 2019. 21:23 Chief complaint: EMS states: pt fell from standing, complaining of right hip and right sg leg pain, complaining of neck and head pain as well as upper back pain, denies LOC, pt is on a blood thinner per EMS. Coronavirus screen: Proceed with normal triage. Ebola Screen: Patient negative for fever greater than or equal to 101.5 degrees Fahrenheit, and additional compatible Ebola Virus Disease symptoms Patient denies exposure to infectious person. Patient denies travel to an Ebola-affected area in the 21 days before illness onset. No symptoms or risks identified at this time. Initial Sepsis Screen: Does the patient meet any 2 criteria? No. Patient's initial sepsis screen is negative. Does the patient have a suspected source of infection? No. Patient's initial sepsis screen is negative. Risk Assessment: Do you want to hurt yourself or someone else? Patient reports no desire to harm self or others. Onset of symptoms was August 19, 2019. Care prior to arrival: Cervical collar in place. Placed on backboard. IV initiated. 22 GA, in the right hand. 21:23 Method Of Arrival: Ambulatory sg 21:23 Acuity: THADDEUS 3 sg 21:23 Care prior to arrival: Cervical collar in place. Placed on backboard. Splint applied. mg2 Trauma Activation: Alert Physician: ED Physician; Name: ; Notified At: ; Arrived At: Physician: General Surgeon; Name: ; Notified At: ; Arrived At: Physician: Radiology; Name: ; Notified At: ; Arrived At: Physician: Respiratory; Name: ; Notified At: ; Arrived At: Physician: Lab; Name: ; Notified At: ; Arrived At: Historical: - Allergies: 21:25 butorphanol; sg 21:25 Ciprofloxacin (DIZZINESS); sg 21:25 Erythromycin; sg 21:25 GABAPENTIN; sg 21:25 Levaquin; sg 21:25 Neurontin; sg 21:25 Stadol; (cardiac arrest); sg 21:25 TETRACYCLINES; sg - Home Meds: 21:25 oxycodone 30 mg Oral TR12 [Active]; Nexium 40 mg Oral cpDR 1 cap once daily [Active]; sg morphine 30 mg Oral tab 1 tab every 6 hours [Active]; Flonase 50 mcg/actuation Nasal spsn 1 spray 2 times per day [Active]; atenolol 50 mg Oral tab PRN [Active]; atenolol 25 mg Oral tab 0.5 tab once daily [Active]; - PMHx: 21:25 Arthritis; Back pain; William hip bursitis; Chronic pain; Complication of anesthesia; DVT; sg GERD; Hypertension; - PSHx: 21:25 back fractures x 3, shoulder/knee surgeries; sg - Immunization history:: Adult Immunizations up to date. - Social history:: Smoking status: Patient denies any tobacco usage or history of. - Immunization history: Last tetanus immunization: unknown. Screenin:25 Abuse screen: Denies threats or abuse. Denies injuries from another. Nutritional mg2 screening: No deficits noted. Tuberculosis screening: No symptoms or risk factors identified. Fall risk At risk due to injury, age, immobility, deformity, prior history of falls. 08/19 00:38 Fall Risk Fall in past 12 months (25 points). IV access (20 points). Ambulatory Aid- mg2 None/Bed Rest/Nurse Assist (0 pts). Gait- Impaired (20 pts.). Primary Survey: 08/18 21:25 NO uncontrolled hemorrhage observed. A: The patient is alert. Airway: patent. mg2 22:24 Breathing/Chest: Respiratory pattern: regular, Respiratory effort: spontaneous, mg2 unlabored, Breath sounds: clear, bilaterally. in right leg. Circulation: Cardiac rhythm: sinus rhythm Skin color:. Disability Alert. Exposure/Environment: All clothing and personal items were removed. Forensic evidence collection is not deemed to be indicated at this time. Items placed in patient belonging bag. 23:41 Reassessment Airway Airway Patent Breathing/Chest Respiratory pattern Regular mg2 Respiratory effort Spontaneous Unlabored Breath sounds Clear Circulation Heart rhythm Sinus tach Color Margaret Disability Alert. Secondary Survey: 22:20 HEENT: No deficits noted. Gastrointestinal: No deficits noted. Musculoskeletal: mg2 Capillary refill < 3 seconds, Bony deformity noted of right leg. Assessment: 21:30 General: Appears uncomfortable, Behavior is anxious. Pain: Complains of pain in back mg2 and right leg and left arm. Neuro: Level of Consciousness is awake, alert, obeys commands, Oriented to person, place, time, situation. Cardiovascular: Capillary refill < 3 seconds Patient's skin is warm and dry. Respiratory: Airway is patent Respiratory effort is even, unlabored, Respiratory pattern is regular, symmetrical. GI: No signs and/or symptoms were reported involving the gastrointestinal system. : No signs and/or symptoms were reported regarding the genitourinary system. EENT: No deficits noted. Derm: Skin is intact, is healthy with good turgor, Skin is pink, warm \T\ dry. normal. Musculoskeletal: Capillary refill < 3 seconds, Bony deformity noted of right leg. 22:15 Reassessment: patient in CT accompanied by me. mg2 23:04 Reassessment: please note pt can be reached at [phone]. 23:19 Reassessment: patient is back from ct scan and xray. pain addressed. informed about the [facility] plan for transfer. 23:41 Reassessment: informed about the plan to transfer her to [facility]. mg2 08/19 00:06 Reassessment: Patient appears in no apparent distress at this time. Patient and/or mg2 family updated on plan of care and expected duration. Pain level reassessed. Patient is alert, oriented x 3, equal unlabored respirations, skin warm/dry/pink. family at bedside. 00:37 Reassessment: report given To RICO [place] [id number] in [facility]. mg2 01:51 Reassessment: report given to EMS, patient in good condition, IV intact. patient not mg2 tolerating Abdalla insertion. briefs applied to the patient. Vital Signs: 08/18 21:26 BP 184 / 87; Pulse 109; Resp 19; Temp 98.7; Pulse Ox 100% on R/A; Weight 66.22 kg; mg2 Height 5 ft. 5 in. (165.10 cm); 22:00 BP 177 / 91; Pulse 105; Resp 18; Pulse Ox 100% on R/A; mg2 23:20 BP 156 / 85; Pulse 104; Resp 18; Temp 98; Pulse Ox 100% on R/A; mg2 08/19 00:07 BP 167 / 95; Pulse 107; Resp 18; Pulse Ox 100% on 2 lpm NC; mg2 01:52 BP 167 / 98; Pulse 102; Resp 18; Temp 98; Pulse Ox 100% on 2 lpm NC; mg2 08/18 21:26 Body Mass Index 24.30 (66.22 kg, 165.10 cm) mg2 Marquise Coma Score: 08/18 21:26 Eye Response: spontaneous(4). Verbal Response: oriented(5). Motor Response: obeys mg2 commands(6). Total: 15. 22:00 Eye Response: spontaneous(4). Verbal Response: oriented(5). Motor Response: obeys mg2 commands(6). Total: 15. 23:20 Eye Response: spontaneous(4). Verbal Response: oriented(5). Motor Response: obeys mg2 commands(6). Total: 15. Trauma Score (Adult): 21:26 Eye Response: spontaneous(1); Verbal Response: oriented(1); Motor Response: obeys mg2 commands(2); Systolic BP: > 89 mm Hg(4); Respiratory Rate: 10 to 29 per min(4); [place] Score: 15; Trauma Score: 12 22:00 Eye Response: spontaneous(1); Verbal Response: oriented(1); Motor Response: obeys mg2 commands(2); Systolic BP: > 89 mm Hg(4); Respiratory Rate: 10 to 29 per min(4); [place] Score: 15; Trauma Score: 12 23:20 Eye Response: spontaneous(1); Verbal Response: oriented(1); Motor Response: obeys mg2 commands(2); Systolic BP: > 89 mm Hg(4); Respiratory Rate: 10 to 29 per min(4); [place] Score: 15; Trauma Score: 12 ED Course: 21:23 Patient arrived in ED. sg 21:24 Triage completed. sg 21:25 Jose J Abernathy, RN is Primary Nurse. mg2 21:26 Arm band placed on. sg 21:30 Inserted saline lock: 20 gauge in right antecubital area, using aseptic technique. mg2 Blood collected. 21:50 Romain Perrin PA is PHCP. jr8 21:50 Gonzalez Griffiths MD is Attending Physician. jr8 22:23 Patient has correct armband on for positive identification. school lunch monitor on. Pulse mg2 ox on. NIBP on. Door closed. Warm blanket given. 22:23 Maintain EMS IV. Dressing intact. Site clean \T\ dry. Gauge \T\ site: 22 \T\ RH. mg2 22:25 Patient maintains SpO2 saturation greater than 95% on room air. Thermoregulation: warm mg2 blanket given to patient. 22:48 Head C Spine Cap Wo Con In Process Unspecified. EDMS 22:55 XRAY Femur RIGHT In Process Unspecified. EDMS 22:55 XRAY Wrist LEFT 3 view In Process Unspecified. EDMS 22:55 Ankle Right 2 View In Process Unspecified. EDMS 23:12 Patient transferred, IV remains in place. mg2 23:41 No provider procedures requiring assistance completed. mg2 08/19 01:28 Primary Nurse role handed off by Jose J Abernathy, RICO sg 01:49 Jose J Abernathy, RN is Primary Nurse. mg2 Administered Medications: 08/18 21:42 Drug: Dilaudid 0.5 mg {Note: Rass score 1.} Route: IVP; Site: right hand; jb4 23:10 Follow up: Response: No adverse reaction mg2 21:45 Drug: Ketamine 0.3 mg/min {Note: Administered by GENARO Lyn.} Route: IVP; Rate: jb4 0.3 mg/min; Site: right antecubital; 23:10 Follow up: Response: No adverse reaction mg2 21:55 Drug: Dilaudid 1 mg {Note: Rass score 1.} Route: IVP; Site: right hand; jb4 23:10 Follow up: Response: No adverse reaction mg2 22:04 Drug: Ketamine 20 mg Route: IVP; Site: right antecubital; jb4 23:10 Follow up: Response: No adverse reaction mg2 23:10 Drug: Dilaudid 1 mg Route: IVP; Site: right antecubital; mg2 23:34 Follow up: Response: No adverse reaction mg2 23:45 Drug: NS 0.9% 1000 ml Route: IV; Rate: 100 ml/hr; Site: right antecubital; mg2 08/19 01:49 Follow up: Response: No adverse reaction; IV Status: Infusion continued upon transfer mg2 00:21 Drug: Ketamine 20 mg Route: IVP; Site: right antecubital; mg2 01:49 Follow up: Response: No adverse reaction mg2 01:51 Drug: Dilaudid 2 mg Route: IVP; Infused Over: 30 mins; Site: right antecubital; mg2 01:51 Follow up: Response: No adverse reaction mg2 Intake: 08/18 21:26 PO: 0ml; Total: 0ml. mg2 Outcome: 08/19 00:06 ER care complete, transfer ordered by MD. bashir 01:53 Transferred by ground EMS to [facility], Transfer form completed. mg2 01:53 Condition: stable 01:53 Instructed on the need for transfer, Demonstrated understanding of instructions. 01:53 Patient's length of stay in the Emergency Department was greater than 2 hours. mg2 02:03 Patient left the ED. mg2 Signatures: Dispatcher [employer] EDMS Valdemar Calix RN RN sg Romain Perrin PA PA jr8 Vishal Germain RN RN jb4 Jose J Abernathy RN RN mg2 Corrections: (The following items were deleted from the chart) 08/18 22:13 21:42 Dilaudid 0.5 mg IVP in right hand pankaj jbSharri 08/19 01:29 01:25 Patient left the ED. stas mcclelland
--- NOTE | 2019-08-20 00:08 | EDPHYS ---
Physician Documentation [facility] Name: Arianne Ambriz Age: 73 yrs Sex: Female : 1945 Arrival Date: 08/19/2019 Time: 21:23 Bed 3 Private MD: ED Physician Gonzalez Griffiths HPI: 08/18 23:27 This 73 yrs old Female presents to ER via Ambulatory with complaints of Fall jr8 Injury. 23:27 Details of fall: The patient fell from an upright position, while standing. Onset: The jr8 symptoms/episode began/occurred acutely, today. Associated injuries: The patient sustained injury to the low back, pain, pain with movement, tenderness, right leg, decreased range of motion, deformity, painful injury. Severity of symptoms: At their worst the symptoms were moderate, in the emergency department the symptoms are unchanged. The patient has not experienced similar symptoms in the past. The patient has not recently seen a physician. Patient stated that she tripped over cat at home falling on back and right side. Pain to hip and low back primarily but stated that she is hurting everywhere. Denies LOC . Historical: - Allergies: 21:25 butorphanol; sg 21:25 Ciprofloxacin (DIZZINESS); sg 21:25 Erythromycin; sg 21:25 GABAPENTIN; sg 21:25 Levaquin; sg 21:25 Neurontin; sg 21:25 Stadol; (cardiac arrest); sg 21:25 TETRACYCLINES; sg - Home Meds: 21:25 oxycodone 30 mg Oral TR12 [Active]; Nexium 40 mg Oral cpDR 1 cap once daily [Active]; sg morphine 30 mg Oral tab 1 tab every 6 hours [Active]; Flonase 50 mcg/actuation Nasal spsn 1 spray 2 times per day [Active]; atenolol 50 mg Oral tab PRN [Active]; atenolol 25 mg Oral tab 0.5 tab once daily [Active]; - PMHx: 21:25 Arthritis; Back pain; William hip bursitis; Chronic pain; Complication of anesthesia; DVT; sg GERD; Hypertension; - PSHx: 21:25 back fractures x 3, shoulder/knee surgeries; sg - Immunization history:: Adult Immunizations up to date. - Social history:: Smoking status: Patient denies any tobacco usage or history of. - Immunization history: Last tetanus immunization: unknown. ROS: 23:38 Eyes: Negative for injury, pain, redness, and discharge, ENT: Negative for injury, jr8 pain, and discharge, Neck: Negative for injury, pain, and swelling, Cardiovascular: Negative for chest pain, palpitations, and edema, Respiratory: Negative for shortness of breath, cough, wheezing, and pleuritic chest pain, Abdomen/GI: Negative for abdominal pain, nausea, vomiting, diarrhea, and constipation, Skin: Negative for injury, rash, and discoloration. 23:38 Back: Positive for pain at rest, pain with movement, of the lumbar area. 23:38 MS/extremity: Positive for decreased range of motion, deformity, pain, tenderness, of the right leg. Exam: 08/19 00:01 Head/Face: Normocephalic, atraumatic. Eyes: Pupils equal round and reactive to light, jr8 extra-ocular motions intact. Lids and lashes normal. Conjunctiva and sclera are non-icteric and not injected. Cornea within normal limits. Periorbital areas with no swelling, redness, or edema. ENT: Nares patent. No nasal discharge, no septal abnormalities noted. Tympanic membranes are normal and external auditory canals are clear. Oropharynx with no redness, swelling, or masses, exudates, or evidence of obstruction, uvula midline. Mucous membranes moist. Neck: Trachea midline, no thyromegaly or masses palpated, and no cervical lymphadenopathy. Supple, full range of motion without nuchal rigidity, or vertebral point tenderness. No Meningismus. Chest/axilla: Normal chest wall appearance and motion. Nontender with no deformity. No lesions are appreciated. Cardiovascular: Regular rate and rhythm with a normal S1 and S2. No gallops, murmurs, or rubs. Normal PMI, no JVD. No pulse deficits. Respiratory: Lungs have equal breath sounds bilaterally, clear to auscultation and percussion. No rales, rhonchi or wheezes noted. No increased work of breathing, no retractions or nasal flaring. Abdomen/GI: Soft, non-tender, with normal bowel sounds. No distension or tympany. No guarding or rebound. No evidence of tenderness throughout. Skin: Warm, dry with normal turgor. Normal color with no rashes, no lesions, and no evidence of cellulitis. Neuro: Awake and alert, GCS 15, oriented to person, place, time, and situation. Cranial nerves II-XII grossly intact. Motor strength 5/5 in all extremities. Sensory grossly intact. Cerebellar exam normal. Normal gait. Back: pain, that is moderate, of the lumbar area and low back area, ROM is painful, decreased, scoliosis that is marked, CVA tenderness, is absent, vertebral tenderness, is appreciated at T11, T12, L1, L2, L3 and L4. Musculoskeletal/extremity: Extremities: grossly normal except: noted in the right hip: decreased ROM, deformity, pain, tenderness, noted in the right ankle: pain, tenderness, no swelling noted, noted in the left wrist: pain, tenderness, No swelling or other external signs of trauma noted , Circulation is intact in all extremities. Pulses: noted to be 2+ in the right radial artery, right femoral artery, right dorsalis pedis artery, left radial artery, left femoral artery and left dorsalis pedis artery, Sensation intact. Decreased ROM to right leg secondary to deformity and pain. Rest of extremities unremarkable . Vital Signs: 08/18 21:26 BP 184 / 87; Pulse 109; Resp 19; Temp 98.7; Pulse Ox 100% on R/A; Weight 66.22 kg; mg2 Height 5 ft. 5 in. (165.10 cm); 22:00 BP 177 / 91; Pulse 105; Resp 18; Pulse Ox 100% on R/A; mg2 23:20 BP 156 / 85; Pulse 104; Resp 18; Temp 98; Pulse Ox 100% on R/A; mg2 08/19 00:07 BP 167 / 95; Pulse 107; Resp 18; Pulse Ox 100% on 2 lpm NC; mg2 01:52 BP 167 / 98; Pulse 102; Resp 18; Temp 98; Pulse Ox 100% on 2 lpm NC; mg2 08/18 21:26 Body Mass Index 24.30 (66.22 kg, 165.10 cm) mg2 Marquise Coma Score: 08/18 21:26 Eye Response: spontaneous(4). Verbal Response: oriented(5). Motor Response: obeys mg2 commands(6). Total: 15. 22:00 Eye Response: spontaneous(4). Verbal Response: oriented(5). Motor Response: obeys mg2 commands(6). Total: 15. 23:20 Eye Response: spontaneous(4). Verbal Response: oriented(5). Motor Response: obeys mg2 commands(6). Total: 15. Trauma Score (Adult): 21:26 Eye Response: spontaneous(1); Verbal Response: oriented(1); Motor Response: obeys mg2 commands(2); Systolic BP: > 89 mm Hg(4); Respiratory Rate: 10 to 29 per min(4); [place] Score: 15; Trauma Score: 12 22:00 Eye Response: spontaneous(1); Verbal Response: oriented(1); Motor Response: obeys mg2 commands(2); Systolic BP: > 89 mm Hg(4); Respiratory Rate: 10 to 29 per min(4); [place] Score: 15; Trauma Score: 12 23:20 Eye Response: spontaneous(1); Verbal Response: oriented(1); Motor Response: obeys mg2 commands(2); Systolic BP: > 89 mm Hg(4); Respiratory Rate: 10 to 29 per min(4); [place] Score: 15; Trauma Score: 12 MDM: 21:50 Patient medically screened. jr 23:34 ED course: Spoke with Dr. [facility] at [facility]. Accepted patient and will jr8 admit to hospital medicine there . 08/19 00:01 Data reviewed: vital signs, nurses notes, lab test result(s), radiologic studies, CT [facility] scan, plain films. Data interpreted: Pulse oximetry: on room air is 100 %. Interpretation: normal. Counseling: I had a detailed discussion with the patient and/or guardian regarding: the historical points, exam findings, and any diagnostic results supporting the discharge/admit diagnosis, lab results, radiology results, the need to transfer to another facility, [facility] does not immediately have the required specialist, No orthopedics available . Response to treatment: the patient's symptoms have mildly improved after treatment. 00:07 ED course: Discussed with family need to transfer as we do not have [facility] available. Will go to [facility] per patient request. Family good with this. . 08/18 21:52 Order name: Basic Metabolic Panel; Complete Time: 22:25 jr8 08/18 21:52 Order name: CBC with Diff; Complete Time: 00:07 jr8 08/18 21:52 Order name: Type And Screen; Complete Time: 23:09 jr8 08/18 22:38 Order name: Manual Differential; Complete Time: 00:07 EDMS 08/19 00:19 Order name: ABO/RH no charge; Complete Time: 00:21 EDMS 08/18 21:52 Order name: XRAY Femur RIGHT jr8 08/18 21:52 Order name: XRAY Wrist LEFT 3 view jr8 08/18 22:19 Order name: Head C Spine Cap Wo Con EDTX 08/18 22:31 Order name: Ankle Right 2 View EDTX 08/18 21:52 Order name: Labs collected and sent; Complete Time: 22:03 jr8 Administered Medications: 08/18 21:42 Drug: Dilaudid 0.5 mg {Note: Rass score 1.} Route: IVP; Site: right hand; jb4 23:10 Follow up: Response: No adverse reaction mg2 21:45 Drug: Ketamine 0.3 mg/min {Note: Administered by PA. Eboni} Route: IVP; Rate: jb4 0.3 mg/min; Site: right antecubital; 23:10 Follow up: Response: No adverse reaction mg2 21:55 Drug: Dilaudid 1 mg {Note: Rass score 1.} Route: IVP; Site: right hand; jb4 23:10 Follow up: Response: No adverse reaction mg2 22:04 Drug: Ketamine 20 mg Route: IVP; Site: right antecubital; jb4 23:10 Follow up: Response: No adverse reaction mg2 23:10 Drug: Dilaudid 1 mg Route: IVP; Site: right antecubital; mg2 23:34 Follow up: Response: No adverse reaction mg2 23:45 Drug: NS 0.9% 1000 ml Route: IV; Rate: 100 ml/hr; Site: right antecubital; mg2 08/19 01:49 Follow up: Response: No adverse reaction; IV Status: Infusion continued upon transfer mg2 00:21 Drug: Ketamine 20 mg Route: IVP; Site: right antecubital; mg2 01:49 Follow up: Response: No adverse reaction mg2 01:51 Drug: Dilaudid 2 mg Route: IVP; Infused Over: 30 mins; Site: right antecubital; mg2 01:51 Follow up: Response: No adverse reaction mg2 Disposition: 12:29 Co-signature as Attending Physician, Gonzalez Griffiths MD I agree with the assessment and kenisha plan of care. Disposition: 08/20/19 00:06 Transfer ordered to [facility]. Diagnosis is Displaced fracture of greater trochanter of right femur. - Reason for transfer: Higher level of care. - Accepting physician is Dr. Vasquez. - Condition is Fair. - Problem is new. - Symptoms have improved. Critical care time excluding procedures: 00:06 Critical care time: Bedside Care: 20 minutes, Consultation: 15 minutes, Family jr8 Intervention: 10 minutes. Total time: 45 minutes Signatures: Dispatcher [employer] EDMS Valdemar Calix, RN RN Gonzalez Abbott MD MD cha Roszak, Josh, PA PA jr8 Vishal Germain, RN RN jb4 Jose J Abernathy, RN RN mg2 Corrections: (The following items were deleted from the chart) 08/18 22:19 21:53 Head C Spine CAP W Con+CT.RAD.BRZ ordered. EDTX EDTX 22:31 21:53 Ankle Right 3 View+RAD.RAD.BRZ ordered. EDTX EDTX 08/19 01:25 00:06 08/20/2019 00:06 Transfer ordered to [facility]. Diagnosis is Displaced sg fracture of greater trochanter of right femur. Reason for transfer: Higher level of care. Accepting physician is Dr. Vasquez. Condition is Fair. Problem is new. Symptoms have improved. jr8 02:03 01:25 08/20/2019 00:06 Transfer ordered to [facility]. Diagnosis is Displaced mg2 fracture of greater trochanter of right femur. Reason for transfer: Higher level of care. Accepting physician is Dr. Vasquez. Condition is Fair. Problem is new. Symptoms have improved. sg
[2019-08-20] MEDS ORDERED: HYDROMORPHONE HCL 2 MG/ML inj ONE (01:14)
[2019-08-20] MEDS ORDERED: NA CHLORIDE 0.9% 100 ML IV ONE (01:14)
[2019-08-20 01:33] VITALS: O2SAT 100
[2019-08-20 01:35] VITALS: TEMP 98
[2019-08-20 02:14] VITALS: BP 167/98
--- NOTE | 2019-08-20 08:23 | RAD REPORT ---
EXAM DESCRIPTION: RAD - Ankle Right 2 View - 08/19/2019 10:55 pm CLINICAL HISTORY: Right ankle pain FINDINGS: Limited two-view series obtained No fracture or dislocation is seen
--- NOTE | 2019-08-20 08:25 | RAD REPORT ---
EXAM DESCRIPTION: RAD - Wrist Left 3 View - 08/19/2019 10:55 pm CLINICAL HISTORY: Left wrist pain status post injury FINDINGS: No fracture or dislocation is seen. The bones are osteoporotic If the patient continues to have symptoms to suggest an occult fracture then a followup plain film se ashley in 7 days would be recommended
--- NOTE | 2019-08-20 08:27 | RAD REPORT ---
EXAM DESCRIPTION: RAD - Femur Right - 08/19/2019 10:55 pm CLINICAL HISTORY: Leg pain FINDINGS: Intertrochanteric fracture involves the right femur. The fracture extends into the greater trochanter. The lesser trochanter is avulsed. Marked varus angulation at the fracture site. No dislocation Right knee prosthesis in place
--- NOTE | 2019-08-21 00:25 | RAD REPORT ---
EXAM DESCRIPTION: CT - Head C Spine Cap Wo Con - 08/20/2019 5:31 am CLINICAL HISTORY: PAIN COMPARISON: CT abdomen and pelvis August 04, 2019. TECHNIQUE: Multiple helical axial tomographic images were obtained of the head, cervical spine, ches t, abdomen, and pelvis without intravenous contrast. This exam was performed according to our [facility] ental dose-optimization program, which includes automated exposure control, adjustment of the mA and/ or kV according to patient size and/or use of iterative reconstruction technique. FINDINGS: Head and cervical spine: Generalized brain volume loss is demonstrated. There is no acute intracranial hemorrhage. No mass. No midline shift. No ventriculomegaly. Claudio-white matter differentiation is maintained. Chronic appearing opacification of the sphenoid sinus is noted with associated periosteal thickening. Mastoid air cells and middle ear spaces are clear. Orbits and orbital contents are unremarkable. No acute calvarial fracture. No evidence for an acute fracture of the cervical spine. There is reversal of the normal cervical kassidy dosis which is nonspecific. There is a 3 mm anterior subluxation of C3 relative to C4 which is likely degenerative related. Disc space narrowing and osteophyte formation is most significant at C5-C6 and C6-C7. Surrounding soft tissues are unremarkable. Chest: Thyroid gland: unremarkable. Axilla: unremarkable. Aorta: No evidence of aortic aneurysm. Mediastinum: Unremarkable. No adenopathy. Heart: Heart is normal in size. Lungs/airways: No consolidation. Airways are patent. There is a 6 mm nodule in the left upper lobe (s eries 401, image 28). There is a 7 mm groundglass nodular density in the lingula (series 401, image 4 1). Few additional tiny nodular densities in both lungs noted. There are several scattered small reti cular markings bilaterally which are likely chronic. Pleural spaces: No significant pleural effusion. No pneumothorax. Osseous: Right humeral head bone anchors are present. Soft tissues: Unremarkable. Abdomen and pelvis: Liver: Homogenous attenuation is demonstrated. Gallbladder/biliary: Gallbladder appears unremarkable. No calcified gallstones. Dilatation of the com mon bile duct up to 1.2 cm is again noted. Pancreas: Fatty changes are again noted. Spleen: Unremarkable. Adrenals: Unremarkable. Kidneys and ureters: No evidence of renal or ureteral stones. No hydronephrosis. Bladder: Unremarkable. Pelvic organs: Unremarkable. Bowel: There is a moderate amount of fecal material in the colon. No evidence of bowel obstruction. N o bowel wall thickening. Appendix is not well seen. Peritoneum: No free air. No significant free fluid. Lymph nodes: Unremarkable. Vasculature: Mild aortic atherosclerosis noted. Soft tissues: Unremarkable. Bones: There is an acute, comminuted, mildly displaced right femoral intertrochanteric fracture. Old, healed fractures of the left superior and inferior pubic rami noted. There is dense material within the L4 and L5 vertebrae suggestive for prior kyphoplasty. Chronic appearing compression fractures at L5 and L4 are noted. IMPRESSION: 1. Acute right femoral intertrochanteric fracture. 2. No acute intracranial process. 3. No evidence for an acute fracture of the cervical spine. 4. No evidence for an acute process within the chest, abdomen, or pelvis. 5. Persistent dilatation of the common bile duct. Nonemergent follow-up ultrasound and possibly MRCP recommended to exclude an obstructive process. 6. Few pulmonary nodules as above measuring up to 7 mm. Recommend a non-contrast Chest CT at 6-12 mon ths, then consider an additional non-contrast Chest CT at 18-24 months. These guidelines do not apply to immunocompromised patients and patients with cancer. Follow up in patients with significant comor bidities as clinically warranted. For lung cancer screening, adhere to Lung-RADS guidelines. Referenc e: Radiology. 2017; 284(1):228-43. 7. Moderate amount of fecal material in the colon. THIS REPORT CONTAINS FINDINGS THAT MAY BE CRITICAL TO PATIENT CARE: The findings were verbally discu ssed via telephone conference with Dr. Perrin by Dr. Riley at 2330 hours central time on August 19, 2019. The results were acknowledged and understood. Electronically signed by: Bhanu Riley MD 08/19/2019 11:42 PM CDT Due to temporary technical issues with the PACS/Fluency reporting system, reports are being signed by the in house radiologist as a courtesy to ensure prompt reporting. The interpreting radiologist is f ully responsible for the content of the report.
== END 2019-08-20 02:03 | disposition short-term general hospital (02) ==
LOC: ER 21:22
DX: S72.111A Displaced fracture of greater trochanter of right femur, initial encounter for closed fracture (principal); M79.604 Pain in right leg; I10 Essential (primary) hypertension; W01.198A Fall on same level from slipping, tripping and stumbling with subsequent striking against other object, initial encounter; Y93.01 Activity, walking, marching and hiking; Y92.009 Unspecified place in unspecified non-institutional (private) residence as the place of occurrence of the external cause; Z86.718 Personal history of other venous thrombosis and embolism; Z88.1 Allergy status to other antibiotic agents; Z88.3 Allergy status to other anti-infective agents; Z88.5 Allergy status to narcotic agent
CPT/HCPCS: 85025; 80048; 36415; 86900; 86850; 86901; 70450; 71250; 72125; 73110; 73552; 73600; 99285; J1170 ×4; J7030; J2405

== ENCOUNTER 2019-10-09 01:11 | Emergency (ER) | payer OTHER, BC ==
--- OUTSIDE RECORDS SUMMARY | 2019-10-09 01:18 | XMS REPORT | Clinical Summary ---
:1945 Author Organization [facility] Address [address] [place] [address] Care Team Providers Name Role Phone Asked, [...] Dispensed Refills Start End Status Date Date ELIQUIS 5 mg 5 mg 2 (two) times 2 08/26/19 Active tablet a day. 18 tiZANidine Take 1 tablet (4 90 tablet 1 09/16/19 Ac tive (ZANAFLEX) 4 MG mg total) by mouth 20 tablet every 8 (eight) hours as needed for muscle spasms. oxyCODone Take 1 tablet (20 120 tablet 0 10/11/ A ctive (ROXICODONE) 20 MG mg total) by mouth 20 02 0 tabletIndications: 4 (four) times a chronic pain day for 30 days .chronic pain. oxyCODone Take 1 tablet (20 120 tablet 0 11/11/19 A ctive (ROXICODONE) 20 MG mg total) by mouth 20 02 0 tabletIndications: 4 (four) times a chronic pain day for 30 days .chronic pain. Max Daily Amount: 80 mg VENTOLIN HFA 90 4 12/11/19 Disc ontinued mcg/actuation 16 019 inhaler atenolol 25 mg daily. 1 02/21/20 Discont inued (TENORMIN) 50 MG 16 020 (St op Taking at tablet Discharge) sucralfate as needed. 3 01/24/20 Disconti nued (CARAFATE) 1 gram 019 tablet alendronate 0 01/10/20 Disconti nued (FOSAMAX) 70 MG (Med List tablet Cleanup) esomeprazole Take 40 mg by 0 Dis continued (NexIUM) 40 MG mouth daily before 020 capsule breakfast. NARCAN 4 UMU REP ALN 0 10/01/19 Disconti nued mg/actuation 19 020 (Stop T aking at spray,non-aerosol Di scharge) spironolactone spironolactone 25 0 Discontinued (ALDACTONE) 25 MG mg tablet 020 (S top Taking at tablet Discharge) tiZANidine 0 10/06/19 Discontin ued (ZANAFLEX) 4 MG 019 tablet hydromorPHONE TK 1 T PO Q 4 TO 6 0 10/01/19 Discontinued (DILAUDID) 4 MG H 19 019 tablet oxyCODone-acetamin oxycodone-acetamin 0 Discontinued ophen (PERCOCET) ophen 10 mg-325 mg 019 10-325 mg per tablet tablet lisinopril lisinopril 5 mg 0 Dis continued (PRINIVIL) 5 mg tablet 020 (Med List tablet Cleanup) oxyCODone Take 15 mg by 0 Discon tinued (ROXICODONE) 15 MG mouth every 6 020 immediate release (six) hours as tabletIndications: needed for acute pain moderate pain .Acute Pain. tiZANidine Take 1 tablet (4 30 tablet 2 03/18/20 Di scontinued (ZANAFLEX) 4 MG mg total) by mouth 19 020 (Reorder) tablet daily for 90 days. oxyCODone Take 1 tablet (20 120 tablet 0 04/06/20 D iscontinued (ROXICODONE) 20 MG mg total) by mouth 20 02 0 (Med List tabletIndications: 4 (four) times a Cleanup) chronic pain day for 30 days .chronic pain. Max Daily Amount: 80 mg DULoxetine duloxetine 20 mg 0 Di scontinued (CYMBALTA) 20 MG capsule,delayed 020 (Med List capsule release Cleanup) tiZANidine Take 1 tablet (4 270 tablet 3 04/19/19 D iscontinued (ZANAFLEX) 4 MG mg total) by mouth 20 020 (Reorder) tablet 3 (three) times a day. tiZANidine Take 1 tablet (4 90 tablet 2 06/02/ Di scontinued (ZANAFLEX) 4 MG mg total) by mouth 20 020 (Reorder) tablet every 8 (eight) hours as needed for muscle spasms. oxyCODone Take 1 tablet (20 120 tablet 0 07/28/ D iscontinued (ROXICODONE) 20 MG mg total) by mouth 20 02 0 (Reorder) tabletIndications: 4 (four) times a chronic pain day for 30 days .chronic pain. tiZANidine Take 1 tablet (4 90 tablet 1 07/18/ Di scontinued (ZANAFLEX) 4 MG mg total) by mouth 20 020 (Reorder) tablet every 8 (eight) hours as needed for muscle spasms. oxyCODone Take 1 tablet (20 120 tablet 0 08/25/ D iscontinued (ROXICODONE) 20 MG mg total) by mouth 20 02 0 tabletIndications: 4 (four) times a chronic pain day for 30 days .chronic pain. Max Daily Amount: 80 mg oxyCODone Take 1 tablet (20 120 tablet 0 09/23/ D iscontinued (ROXICODONE) 20 MG mg total) by mouth 20 02 0 tabletIndications: 4 (four) times a chronic pain day for 30 days .chronic pain. oxyCODone Take 1 tablet (20 120 tablet 0 07/28/2 D iscontinued (ROXICODONE) 20 MG mg total) by mouth 20 02 0 tabletIndications: 4 (four) times a chronic pain day for 30 days .chronic pain. oxyCODone Take 30 mg by 0 08/20/2 Discon tinued (OxyCONTIN) 30 MG mouth every 12 020 (Med List tablet extended (twelve) hours. Cleanup) release 12 hr morPHINE Take 30 mg by 0 08/20/2 Discon tinued immediate-release mouth every 4 020 30 MG (four) hours as tabletIndications: needed for severe acute pain pain .acute pain. fluticasone 1 spray by Each 0 Di scontinued propionate Nare route 2 (two) 020 (Med List (FLONASE) 50 times a day. Julita nup) mcg/actuation nasal spray pregabalin Take 1 capsule (75 90 capsule 0 08/27/1909/25/2 (LYRICA) 75 MG mg total) by mouth 20 020 capsule 3 (three) times a day for 30 days. traMADoL (ULTRAM) Take 1 tablet (50 15 tablet 0 08/27/19 06/0 3/2 50 mg mg total) by mouth 20 020 tabletIndications: 3 (three) times a acute pain day for 5 days .acute pain. oxyCODone Take 1 tablet (20 120 tablet 0 09/12/2 D iscontinued (ROXICODONE) 20 MG mg total) by mouth 20 02 0 (Reorder) tabletIndications: 4 (four) times a chronic pain day for 30 days .chronic pain. Active Problems Problem Noted Date Other chronic pain 09/16/2019 Femur fracture 08/24/2019 Hyponatremia 08/23/2019 Hip fracture 08/20/2019 Closed displaced intertrochanteric fracture of right f emur 08/20/2019 Chronic deep vein thrombosis (DVT) of proximal [...] Encounters Date Type Specialty Care Team Description 10/08/2019 Office Visit Orthopedic Surgery Rajeev Chacon MD 10/08/2019 Orders Only Orthopedic Surgery Landon, Closed di splaced Lillian, KEMI intertrochanter ic fracture of rig ht femur, initial encounter (HCC) (Primary Dx) 10/07/2019 Travel 10/04/2019 Travel 10/04/2019 Orders Only Orthopedic Surgery Uvaldo, Closed di splaced Matilda, KEMI intertrochanter ic fracture of rig ht femur, initial encounter (HCC) (Primary Dx) 09/29/2019 Travel 09/16/2019 Telemedicine Physical Medicine Ananya, Closed dis placed intertrochanteric fracture of right femur, sequela (Primary Dx); and Rehabilitation John Martin MD Other chronic pain; Bursitis of oth er bursa of both hips; Lumbar disc dis ease; Scoliosis of th oracolumbar spine, unspecified scoliosis type; Chronic cervica l radiculopathy; Cervicalgia; Lumbar radicula r pain; Back pain, unsp ecified back location, unspecified back pain laterality, unspecified chronicity 09/16/2019 Travel 09/13/2019 Travel 09/13/2019 Refill Physical Medicine Kamran Sarabia online facilitator rema pain and Rehabilitation KEMI Jalloh 09/03/2019 Travel 09/01/2019 Telephone Physical Medicine Oralia Crawley, and Rehabilitation RN 08/20/2019 Anesthesia Event Orthopedic Surgery Driss Melchor MD Nasser, Faiz Syed, MD 08/20/2019 Surgery Orthopedic Surgery Rajeev Chacon, [facility] MD EASON, FEMUR 08/20/2019 Hospital Encounter Orthopedic Surgery Pedro, Amna sed displaced intertrochanteric fracture of right femur, initial encounter (HCC) (Primary Dx); - Lilly Bryant MD Lumbar radicular pain 08/27/2019 Crissy Delacruz MD 08/20/2019 Travel 08/19/2019 Intake Access 07/23/2019 Refill Physical Medicine Oralia Crawley, Kamran chr onic pain and Rehabilitation RN (Primary Dx) 07/19/2019 Telemedicine Physical Medicine Ananya Lumbar dis c disease (Primary Dx); and Rehabilitation John Martin MD Bursit is of both hips, unspecified bursa; Scoliosis of th oracolumbar spine, unspecified scoliosis type; Chronic cervica l radiculopathy; Lumbar radicula r pain; Back pain, unsp ecified back location, unspecified back pain laterality, unspecified chronicity; 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, sequela 07/19/2019 Travel 07/14/2019 Travel 06/03/2019 Refill Physical Medicine [place], and Rehabilitation Elizabeth Huntley RN 05/25/2019 Office Visit Physical Medicine Ananya Lumbar rad icular pain (Primary Dx); and Rehabilitation John Martin MD Cervic algia; Chronic cervica l radiculopathy; Lumbar disc dis ease; Chronic prescri ption opiate use; Chronic deep ve in thrombosis (DVT) of proximal vein of left lower extremity (HCC); Back pain, unsp ecified back location, unspecified back pain laterality, unspecified chronicity 04/28/2019 Telephone Physical Medicine [facility], and Rehabilitation KEMI Jalloh 04/19/2019 Office Visit Physical Medicine Lexis Hare pr escription opiate use (Primary Dx); and Rehabilitation John Martin MD Bursit is of other bursa of both hips; Lumbar disc dis ease; Chronic cervica l radiculopathy; Myalgia; Lumbar radicula r pain; Cervicalgia; Chronic deep ve in thrombosis (DVT) of proximal vein of left lower extremity (HCC); Back pain, unsp ecified back location, unspecified back pain laterality, unspecified chronicity; Scoliosis, unsp ecified scoliosis type, unspecified spinal region 04/05/2019 Refill Physical Medicine [facility], Lexis ce rvical radiculopathy (Primary Dx); and Rehabilitation KEMI Jalloh Lumbar d isc disease 04/01/2019 Telephone Physical Medicine [facility], and Rehabilitation KEMI Jalloh 03/18/2019 Refill Physical Medicine Asrabia, and Rehabilitation KEMI Jalloh 03/17/2019 Telephone Physical Medicine [facility], and Rehabilitation KEMI Jalloh 03/16/2019 Office Visit Physical Medicine Myra Hare a (Primary Dx); and Rehabilitation John Martin MD Lumbar radicular pain; Chronic cervica l radiculopathy; Lumbar disc dis ease; Bursitis of oth er bursa of both hips; 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, sequela; Chronic prescri ption opiate use; Back pain, unsp ecified back location, unspecified back pain laterality, unspecified chronicity; Chronic deep ve in thrombosis (DVT) of proximal vein of left lower extremity (HCC) 10/13/2018 Office Visit Physical Medicine Ananya, Chronic de ep vein thrombosis (DVT) of proximal vein of left lower extremity (HCC) (Primary Dx); and Rehabilitation John Martin MD Lumbar radicular pain; Cervicalgia; Chronic cervica l radiculopathy; Lumbar disc dis ease; Scoliosis of th oracolumbar spine, unspecified scoliosis type; Chronic prescri ption opiate use; Back pain, unsp ecified back location, unspecified back pain laterality, unspecified chronicity after 10/08/2018 Family History Medical History Relation Name Comments [...] been in contact with No / Unsure 10/07/2019 1:56 PM CDT someone who was confirmed or suspected to have Coronavirus / COVID-19? Last Filed Vital Signs Vital Sign Reading Time Taken Comments Blood Pressure 129/63 08/27/2019 7:19 PM CDT Pulse 97 08/27/2019 7:19 PM CDT Temperature 37.1 C (98.7 F) 08/27/2019 7:19 PM CDT Respiratory Rate 15 08/27/2019 7:19 PM CDT Oxygen Saturation 98% 08/27/2019 7:19 PM CDT Inhaled Oxygen Concentration - - Weight 67.1 kg (148 lb) 10/08/2019 12:41 PM CDT Height 162.6 cm (5' 4") 10/08/2019 12:41 PM CDT Body Mass Index 25.4 10/08/2019 12:41 PM CDT Plan of Treatment Date Type Specialty Care Team Description 12/14/2019 Telemedicine Physical Medicine and John Hare , Rehabilitation [address] [facility] et [address] [place], [place] [address] [phone] Health Maintenance Due Date Last Done Comments COLONOSCOPY SCREENING 10/27/1993 SHINGLES VACCINES (#1) 10/27/1993 65+ PNEUMOCOCCAL VACCINE (1 of 2 - PCV13) 10/27/2008 BREAST CANCER SCREENING 10/16/2018 10/16/2016 INFLUENZA VACCINE 10/30/2019 04/21/2017 Implants Implanted Type Area Turret Punch Operator Device Shelf Model / Identifier Expiration Serial / Lot Date Hfn Rh 130 Deg 11mm X 360mm - [id number] [id number] IMPLANT Right: [employer] 12/26/2028 [id number] / Implanted: Qty: 1 on 08/20/2019 by Rajeev Chacon MD at [facility] Hip / [id number] Hfn A/R Screw 90mm - [id number] [id number] IMPLANT Right: [employer] 01/20/2028 [id number] / Implanted: Qty: 1 on 08/20/2019 by Rajeev Chacon MD at [facility] Hip / [id number] Cortical Bone Scr [id number] - [id number] IPM IMPLANT Right: [employer] [id number] / Implanted: Qty: 1 on 08/20/2019 by Rajeev Chacon MD at [facility] Hip / Hfn Lag Screw 10mm X 105mm - [id number] IPM IMPLANT Right: ANGIE I NC [id number] / Implanted: Qty: 1 on 08/20/2019 by Rajeev Chacon MD at [facility] Hip / Procedures Procedure Name Priority Date/Time Associated Diagnosis Comme nts ESTIMATED GFR Routine 08/27/2019 4:29 Results fo r AM CDT this procedure are in the results section. MAGNESIUM LEVEL Routine 08/27/2019 4:29 Results for AM CDT this procedure are in the results section. PHOSPHORUS LEVEL Routine 08/27/2019 4:29 Results for AM CDT this procedure are in the results section. HC COMPLETE BLD COUNT Routine 08/27/2019 4:29 Re sults for W/AUTO DIFF AM CDT this procedure are in the results section. BASIC METABOLIC PANEL Routine 08/27/2019 4:29 Re sults for AM CDT this procedure are in the results section. RESPIRATORY PATHOGEN Routine 08/26/2019 2:30 Res ults for PANEL PM CDT this procedure are in the results section. INFLUENZA ANTIGEN Routine 08/26/2019 2:30 Result s for TEST, REFLEX NEGATIVE PM CDT this p rocedure TO RPP are in the results section. COVID-19 QUALITATIVE Routine 08/26/2019 8:50 Res ults for PCR AM CDT this procedure are in the results section. ESTIMATED GFR Routine 08/26/2019 5:04 Results fo r AM CDT this procedure are in the results section. HC COMPLETE BLD COUNT Routine 08/26/2019 5:04 Re sults for W/AUTO DIFF AM CDT this procedure are in the results section. BASIC METABOLIC PANEL Routine 08/26/2019 5:04 Re sults for AM CDT this procedure are in the results section. XR CHEST 1 VW Routine 08/25/2019 6:24 Results fo r PORTABLE PM CDT this procedure are in the results section. BLOOD CULTURE, Routine 08/25/2019 12:15 Results f or AEROBIC & ANAEROBIC PM CDT this pro cedure are in the results section. BLOOD CULTURE, Routine 08/25/2019 12:15 Results f or AEROBIC & ANAEROBIC PM CDT this pro cedure are in the results section. ESTIMATED GFR Routine 08/25/2019 5:30 Results fo r AM CDT this procedure are in the results section. HC COMPLETE BLD COUNT Routine 08/25/2019 5:30 Re sults for W/AUTO DIFF AM CDT this procedure are in the results section. BASIC METABOLIC PANEL Routine 08/25/2019 5:30 Re sults for AM CDT this procedure are in the results section. PARTIAL Routine 08/25/2019 5:30 Results for THROMBOPLASTIN TIME AM CDT this pro cedure (PTT) are in the results section. PROTHROMBIN TIME WITH Routine 08/25/2019 5:30 Re sults for INR AM CDT this procedure are in the results section. URINALYSIS SCREEN AND Routine 08/24/2019 3:05 Re sults for MICROSCOPY, WITH PM CDT this proced ure REFLEX TO CULTURE are in the results section. URINE CULTURE Routine 08/24/2019 3:05 Results fo r PM CDT this procedure are in the results section. ESTIMATED GFR Routine 08/24/2019 4:05 Results fo r AM CDT this procedure are in the results section. HC COMPLETE BLD COUNT Routine 08/24/2019 4:05 Re sults for W/AUTO DIFF AM CDT this procedure are in the results section. BASIC METABOLIC PANEL Routine 08/24/2019 4:05 Re sults for AM CDT this procedure are in the results section. ESTIMATED GFR Routine 08/23/2019 10:40 Results fo r AM CDT this procedure are in the results section. BASIC METABOLIC PANEL Routine 08/23/2019 10:40 Re sults for AM CDT this procedure are in the results section. HC COMPLETE BLD COUNT Routine 08/23/2019 10:40 Re sults for W/AUTO DIFF AM CDT this procedure are in the results section. ESTIMATED GFR STAT 08/23/2019 9:26 Results fo r AM CDT this procedure are in the results section. BASIC METABOLIC PANEL STAT 08/23/2019 9:26 Re sults for AM CDT this procedure are in the results section. CBC WITH PLATELET AND STAT 08/23/2019 9:26 Re sults for DIFFERENTIAL AM CDT this procedure are in the results section. HEMOGLOBIN & Routine 08/22/2019 11:18 Results for HEMATOCRIT PM CDT this procedure are in the results section. CT PELVIS WO CONTRAST STAT 08/22/2019 9:42 Re sults for PM CDT this procedure are in the results section. OSMOLALITY, URINE Routine 08/22/2019 2:00 Result s for PM CDT this procedure are in the results section. SODIUM LEVEL, URINE, Routine 08/22/2019 2:00 Res ults for RANDOM PM CDT this procedure are in the results section. HEMOGLOBIN & Routine 08/22/2019 2:00 Results for HEMATOCRIT PM CDT this procedure are in the results section. XR CHEST 1 VW Routine 08/22/2019 9:05 Results fo r PORTABLE AM CDT this procedure are in the results section. HC COMPLETE BLD COUNT Routine 08/22/2019 4:45 Re sults for W/AUTO DIFF AM CDT this procedure are in the results section. ESTIMATED GFR Routine 08/22/2019 4:00 Results fo r AM CDT this procedure are in the results section. BASIC METABOLIC PANEL Routine 08/22/2019 4:00 Re sults for AM CDT this procedure are in the results section. URINALYSIS SCREEN AND Routine 08/21/2019 8:16 Re sults for MICROSCOPY, WITH PM CDT this proced ure REFLEX TO CULTURE are in the results section. URINE CULTURE Routine 08/21/2019 8:16 Results fo r PM CDT this procedure are in the results section. ECG 12-LEAD STAT 08/21/2019 11:27 Results for AM CDT this procedure are in the results section. HC COMPLETE BLD COUNT Routine 08/21/2019 5:23 Re sults for W/AUTO DIFF AM CDT this procedure are in the results section. ESTIMATED GFR Routine 08/21/2019 4:00 Results fo r AM CDT this procedure are in the results section. PHOSPHORUS LEVEL Routine 08/21/2019 4:00 Results for AM CDT this procedure are in the results section. MAGNESIUM LEVEL Routine 08/21/2019 4:00 Results for AM CDT this procedure are in the results section. BASIC METABOLIC PANEL Routine 08/21/2019 4:00 Re sults for AM CDT this procedure are in the results section. OR FL > 1 HOUR Routine 08/20/2019 6:39 Results f or PM CDT this procedure are in the results section. ANESTHESIA INTUBATION Routine 08/20/2019 5:02 Re sults for PM CDT this procedure are in the results section. INTRAMEDULLARY 08/20/2019 4:13 Closed displaced RODDING, FEMUR PM CDT intertrochanteric fracture of right femur, initial encounter (HCC) Special Needs Large C-arm, fracture table XR HIP 2-3 VIEWS RIGHT STAT 08/20/2019 10:16 AM CDT Results for this procedure are i n the results section . XR PELVIS 1 OR 2 VW STAT 08/20/2019 10:16 AM CDT Results for this procedure are i n the results section . XR WRIST 3+ VW LEFT STAT 08/20/2019 10:15 AM CDT Results for this procedure are i n the results section . ESTIMATED GFR STAT 08/20/2019 7:42 AM CDT Res ults for this procedure are i n the results section . COMPREHENSIVE METABOLIC STAT 08/20/2019 7:42 AM CDT Results for this PANEL procedure are i n the results section . PREPARE RBC STAT 08/20/2019 7:35 AM CDT Resu lts for this procedure are i n the results section . TYPE AND SCREEN STAT 08/20/2019 7:35 AM CDT R esults for this procedure are i n the results section . PARTIAL THROMBOPLASTIN TIME STAT 08/20/2019 7:35 AM CDT Results for this (PTT) procedure are i n the results section . ECG 12-LEAD STAT 08/20/2019 6:19 AM CDT Resu lts for this procedure are i n the results section . ESTIMATED GFR Routine 08/20/2019 4:50 AM CDT Res ults for this procedure are i n the results section . HEMOGLOBIN A1C Routine 08/20/2019 4:50 AM CDT Re sults for this procedure are i n the results section . LIPID PANEL Routine 08/20/2019 4:50 AM CDT Resu lts for this procedure are i n the results section . PHOSPHORUS LEVEL Routine 08/20/2019 4:50 AM CDT Results for this procedure are i n the results section . MAGNESIUM LEVEL Routine 08/20/2019 4:50 AM CDT R esults for this procedure are i n the results section . COMPREHENSIVE METABOLIC Routine 08/20/2019 4:50 AM CDT Results for this PANEL procedure are i n the results section . PROTHROMBIN TIME WITH INR Routine 08/20/2019 4:50 AM CDT Results for this procedure are i n the results section . HC COMPLETE BLD COUNT W/AUTO Routine 08/20/2019 4:50 AM CDT Results for this DIFF procedure are i n the results section . XR UPPER EXTREMITY EXTERNAL Routine 08/19/2019 10:25 PM CDT Results for this STUDY procedure are i n the results section . CT HEAD EXTERNAL STUDY Routine 08/19/2019 10:17 PM CDT Results for this procedure are i n the results section . DRUG SCREEN Routine 04/19/2019 DRUG SCREEN Routine 03/16/2019 after 10/08/2018 Results Estimated GFR (08/27/2019 4:29 AM CDT)Only the most recent of10 resultswithin the time period is included. Estimated GFR >=90 mL/min/1.73 [facility] Comment: m2 [facility] Catergory Units Interpretation G1 >=90 Normal or high G2 60-89 Mildly decreased G3a 45-59 Mildly to moderately decreas ed G3b 30-44 Moderately to severely decre ased G4 15-29 Severely decreased G5 <15 Kidney failure The eGFR was calculated using the Chronic Kidney Disea se Epidemiology Collaboration (CKD-EPI) equation. Interpretation is based on recommendations of the National Kidney Foundation-Kidney Disease Outcomes Hilario lity Initiative (NKF-KDOQI) published in 2014. Specimen Performing Organization Address City/State/Zipcode Phone Number [facility] DEPARTMENT OF PATHOLOGY AND [address], [place] [address] GENOMIC MEDICINE [facility] [address] [place] [address] CBC with platelet and differential (08/27/2019 4:29 AM CDT)Only the most recent of9 resultswithin the time period is included. WBC 6.85 4.50 - 11.00 [facility] k/uL HOSPITAL RBC 2.94 (L) 4.20 - 5.50 [facility] m/uL HOSPITAL HGB 7.6 (L) 12.0 - 16.0 [facility] g/dL HOSPITAL HCT 24.2 (L) 37.0 - 47.0 % [facility] MCV 82.3 82.0 - 100.0 [facility] MCH 25.9 (L) 27.0 - 34.0 pg [facility] MCHC 31.4 31.0 - 37.0 [facility] g/dL [facility] RDW - SD 43.9 37.0 - 55.0 fL [facility] MPV 10.5 8.8 - 13.2 fL [facility] Platelet count 306 150 - 400 k/uL [facility] Nucleated RBC 0.00 /100 WBC [facility] Neutrophils 66.3 39.0 - 69.0 % [facility] Lymphocytes 17.2 (L) 25.0 - 45.0 % [facility] Monocytes 11.8 (H) 0.0 - 10.0 % [facility] Eosinophils 3.2 0.0 - 5.0 % [facility] Basophils 0.6 0.0 - 1.0 % [facility] Immature granulocytes 0.9Comment: 0.0 - 1.0 % [facility] "Immature HOSPITAL granulocytes" (promyelocytes , myelocytes, metamyelocytes ) Specimen Blood Performing Organization Address City/[facility] Phone Number [facility] DEPARTMENT OF PATHOLOGY AND [address] [place] [address] [phone] [address] Phosphorus level (08/27/2019 4:29 AM CDT)Only the most recent of3 resultswithin the time period is included. Pathologist Sig formerly [facility] Phosphorus 4.3 2.4 - 4.5 mg/dL [facility] L Specimen Blood Performing Organization Address City/[facility] Phone Number [facility] DEPARTMENT OF PATHOLOGY AND [address] [place] [address] [phone] [address] Magnesium level (08/27/2019 4:29 AM CDT)Only the most recent of3 resultswithin the time period is included. Pathologist Sig [facility] Magnesium 1.9 1.6 - 2.4 mg/dL [facility] Specimen Blood Performing Organization Address [facility] Phone Number [facility] DEPARTMENT OF PATHOLOGY AND [address] [place] [phone] Basic metabolic panel (08/27/2019 4:29 AM CDT)Only the most recent of8 results within the time period is included. Pathologist Sig formerly [facility] Sodium 138 135 - 148 mEq/L [facility] Potassium 3.8 3.5 - 5.0 mEq/L [facility] Chloride 102 98 - 112 mEq/L [facility] CO2 26 24 - 31 mEq/L [facility] Anion gap 10@ANIO 7 - 15 mEq/L [facility] BUN 7 (L) 8 - 23 mg/dL [facility] Creatinine 0.47 (L) 0.50 - 0.90 mg/dL [facility] Glucose 91 65 - 99 mg/dL [facility] Calcium 9.1 8.8 - 10.2 mg/dL [facility] Specimen Blood Performing Organization Address City/[facility] Phone Number [facility] DEPARTMENT OF PATHOLOGY AND [address] [place] [address] [phone] [address] Respiratory pathogen panel (08/26/2019 2:30 PM CDT) Pathologist [facility] Adenovirus PCR Not Detected [facility] Comment: PENTECOSTALISM Specimen Information HOSPITAL Specimen Source: Nares Specimen Site: Left Coronavirus HKU1 PCR Not Detected [facility] Coronavirus NL63 PCR Not Detected [facility] Coronavirus 229E PCR Not Detected [facility] Coronavirus OC43 PCR Not Detected [facility] Human metapneumovirus Not Detected [facility] Human Not Detected [facility] rhinovirus/enterovirus [facility] Influenza A PCR Not Detected [facility] Influenza A/H1 PCR Not Reported [facility] Influenza A/H3 PCR Not Reported [facility] Influenza A/H1-2009 PCR Not Reported [facility] Influenza B PCR Not Detected [facility] Parainfluenza virus 1 Not Detected [facility] Parainfluenza virus 2 Not Detected [facility] Parainfluenza virus 3 Not Detected [facility] Parainfluenza virus 4 Not Detected [facility] Respiratory syncytial Not Detected [facility] virus PCR [facility] Bordetella pertussis Not Detected [facility] Bordetella Not Detected [facility] parapertussis PCR [facility] Chlamydia pneumoniae Not Detected [facility] Mycoplasma pneumoniae Not Detected [facility] Influenza A no sub type Not Reported [facility] Specimen Nares - Left Performing Organization Address City/[facility]/Zipcode Phone Number [facility] DEPARTMENT OF PATHOLOGY AND [address] [place] [address] [phone] [address] Influenza antigen test, reflex negative to RPP (08/26/2019 2:30 PM CDT) [facility] Influenza antigen Negative for Influenza A/B antigen. [facility] Comment: HOSPITAL Specimen Information Specimen Source: Nares Specimen Site: Left Specimen Nares - Left Performing Organization Address City/State/Zipcode Phone Number [facility] DEPARTMENT OF PATHOLOGY AND [address] [place] [address] [phone] [address] COVID-19 qualitative PCR (08/26/2019 8:50 AM CDT) Pathologist [facility] Interpretation Negative results do not prec lude 2019-nCoV infection and should not be used as the sole basis for treatment or other patient management decisions. Negative results must be combined with clinical observations, patient history, and epidemiological [place] information. [facility] COVID-19 qualitative Not-Detected Not-Detecte [facility] PCR result d [facility] COVID-19 qualitative See link below for [facility] PCR PDF Lab PENTECOSTALISM ReportComment: Case HOSPITAL Number: [id number] Specimen Narrative Performed At Report was revised to add the Methodolog y [facility] METHODOLOGY: This assay utilizes reagents for nucleic acid amplification and real-time polymerase chain reaction. Performing Organization Address City/State/Zipcode Phone Number [facility] DEPARTMENT OF PATHOLOGY AND [address] [place], [place] [address] GENOMIC MEDICINE [facility] [address] [place] [address] [facility] XR Chest 1 Vw Portable (08/25/2019 6:24 PM CDT)Only the most recent of2 results within the time period is included. Specimen Narrative Performed At EXAMINATION: XR CHEST 1 VW PORTABLE [facility] INDICATION: acute fevers r o PNA COMPARISON: Aug 22 2019 IMPRESSION: Decreased lung volumes compared to prior examination, resulting in increased bronchovascular crowding and hypoventilatory changes, the latter greatest in the left lung base. The bronchovasc ular crowding could obscure subtle foci of airspace di sease, but no confluent consolidation is identified to suggest ac tive pneumonia. No pleural effusion or pneumothorax. Unchanged cardiomediastinal silhouette and osseous str uctures accounting for differences in technique. [id number] Procedure Note Interface, Radiology Results Incoming - 08/25/2019 7:19 PM CDT EXAMINATION: XR CHEST 1 VW PORTABLE INDICATION: acute fevers r o PNA COMPARISON: Aug 22 2019 IMPRESSION: Decreased lung volumes compared to prior examination, resulting in increased bronchovascular crowding and hypoventilatory changes, the latter greatest in the left lung base. The bronchovascular crowding could obscure subtle foci of airspace disease, but no confluent consolidation is identified to suggest active pneumonia. No pleural effusion or pneumothorax. Unchanged cardiomediastinal silhouette a nd osseous structures accounting for differences in technique. [id number] Performing Organization Address City/State/Zipcode Phone Number [facility] [address] [place] [address] Blood culture, aerobic & anaerobic (08/25/2019 12:15 PM CDT)Only the most recent of2 resultswithin the time period is included. Blood culture No growth after 5 days of incubation. HO ADY PENTECOSTALISM isolate Comment: HOSPITAL Specimen Information Specimen Source: Blood Specimen Site: Antecubital Left Specimen Blood Performing Organization Address City/[facility]/Zipcode Phone Number [facility] DEPARTMENT OF PATHOLOGY AND [address] [place] [address] [place] [phone] Partial thromboplastin time, activated (08/25/2019 5:30 AM CDT)Only the most recent of2 resultswithin the time period is included. [facility] PTT 35.1 23.0 - 36.0 [facility] Comment: [facility] PTT therapeutic range for unfractionated heparin is 61.0-112.0 seconds which corresponds to Anti-Xa 0.3-0.7 U/ml. Specimen Blood Performing Organization Address City/[facility] Phone Number [facility] DEPARTMENT OF PATHOLOGY AND [address] [place] [phone] Prothrombin time with INR (08/25/2019 5:30 AM CDT)Only the most recent of2 resultswithin the time period is included. [facility] Prothrombin time 15.7 (H) 11.5 - 14.5 [facility] INR 1.2 [facility] Comment: PENTECOSTALISM The International Normalized Ratio (INR) is a therapeu [facility] monitoring tool for patients who are stable on oral anticoagulant therapy. An INR of 2.0-3.0 is suggested for deep vein thrombosis/pulmonary embolism. Specimen Blood Performing Organization Address City/[facility] Cent[facility]ode Phone Number [facility] DEPARTMENT OF PATHOLOGY AND [address] [place] [phone] Urinalysis screen and microscopy, with reflex to culture (08/24/2019 3:05 PM CDT)Only the most recent of2 resultswithin the time period is included. Pathologist [facility] Specimen site Catheterized [facility] Color, UA Yellow [facility] Appearance, UA Clear [facility] Specific gravity, UA 1.009 1.001 - 1.035 [facility] pH, UA 7.0 5.0 - 8.5 [facility] Protein, UA Negative Negative [facility] Glucose, UA Negative Negative [facility] Ketones, UA Negative Negative [facility] Bilirubin, UA Negative Negative [facility] Blood, UA Negative Negative [facility] Nitrite, UA Negative Negative [facility] Urobilinogen, UA 4.0 (A) <2.0 [facility] Leukocyte esterase, Negative Negative [facility] Epithelial cells, UA 1 /HPF [facility] WBC, UA 1 0 - 4 /HPF [facility] RBC, UA <1 0 - 5 /HPF [facility] Bacteria, UA None seen None seen [facility] Yeast, UA None seen [facility] Yeast with None seen [facility] pseudohyphae, [facility] Specimen Urine Performing Organization Address City/[facility] Cent[facility]ode Phone Number [facility] DEPARTMENT OF PATHOLOGY AND [address] [place] [address] [place] [phone] Urine culture (08/24/2019 3:05 PM CDT)Only the most recent of2 resultswithin the time period is included. Pathologist Sig [facility] Urine culture SEE COMMENTComment: [facility] Bacteriuria screen HOSPITAL negative. Specimen Performing Organization Address [facility]ercori Phone Number [facility] DEPARTMENT OF PATHOLOGY AND [address] [place] [phone] Hemoglobin & hematocrit (08/22/2019 11:18 PM CDT)Only the most recent of2 resultswithin the time period is included. Pathologist [facility] HGB 8.0 (L) 12.0 - 16.0 g/dL [facility] HCT 25.3 (L) 37.0 - 47.0 % [facility] Specimen Blood Performing Organization Address [facility]ori Phone Number [facility] DEPARTMENT OF PATHOLOGY AND [address] [place] [address] [place] [phone] Pelvis Wo Contrast (08/22/2019 9:42 PM CDT) Specimen Narrative Performed At EXAMINATION: CT PELVIS WO CONTRAST HM [facility] CLINICAL HISTORY: S p R hip surgery r o acute bleed COMPARISON: Plain films dated August 20, 2019. TECHNIQUE: Multidetector computed tomographic axial images of pelvis were obtained without contrast utilizing radiation dos e lowering technique including automated exposure control and ite rative reconstruction. Images were acquired i n bone and soft tissue algorithm with thin sections and multiplanar reformats archived and interpreted. 3-D reformats created by a dedicate d processing technologist at an independent workstation were also submitted for interpretation. IMPRESSION: 1.Instrumented right femoral shaft fracture partially visualized. Expected postoperative findings including operative be d gas. Along the lateral thigh soft tissues there is a small high densi ty fluid collection measuring 7 x 6.0 x 2.4 cm co mpatible with a posttraumatic hematoma. 2. Otherwise normal alignment of the pelvis without ac [place] fracture, or muscle injury. 3. No acute intrapelvic process. No bowel obstruction, pelvic mass, free pelvic fluid or significant lymphadenopa thy. [facility]-[id number] Procedure Note Interface, Radiology Results Incoming - 08/22/2019 9:56 PM CDT EXAMINATION: CT PELVIS WO CONTRAST CLINICAL HISTORY: S p R hip surgery r o acute bleed COMPARISON: Plain films dated August 19. TECHNIQUE: Multidetector computed tomog raphic axial images of pelvis were obtained without contrast utilizing radiation dose lowering technique including automated exposure control and iterative reconstruction. Images were acquired in bone and soft tissue algorithm with thin sections and multiplanar reformats archived and interpreted. 3-D reformats created by a dedicated processing technologist at an independent workstation were also submitted for interpretation. IMPRESSION: 1.Instrumented right femoral shaft fract ure partially visualized. Expected postoperative findings including operative bed gas. Along the lateral thigh soft tissues there is a small high density fluid collection measuring 7 x 6.0 x 2.4 cm compatible wi th a posttraumatic hematoma. 2. Otherwise normal alignment of the pel vis without acute fracture, or muscle injury. 3. No acute intrapelvic process. No juan francisco l obstruction, pelvic mass, free pelvic fluid or significant lymphadenopathy. [facility]-[id number] Performing Organization Address City/[facility]/Zipcode Phone Number [facility] [address] [place] [address] Sodium level, urine, random (08/22/2019 2:00 PM CDT) Pathologist Sig nature Sodium, urine, random 49 mEq/L [facility] Specimen Urine Performing Organization Address City/[facility]/Zipcode Phone Number [facility] DEPARTMENT OF PATHOLOGY AND [address] [place], [place] [phone] [facility] [address] [place] [address] Osmolality, urine (08/22/2019 2:00 PM CDT) Pathologist Sig nature Osmolality, urine 510 50 - 1,400 mOsm/kg [facility] Specimen Urine Performing Organization Address City/[facility]ercode Phone Number [facility] DEPARTMENT OF PATHOLOGY AND [address] [place], [place] [address] [facility] [address] [place] [address] ECG 12 lead (08/21/2019 11:27 AM CDT)Only the most recent of2 resultswithin the time period is included. Pathologist Sig nature Ventricular rate 109 [facility] Atrial rate 109 [facility] OK interval 140 [facility] QRSD interval 72 [facility] QT interval 348 [facility] QTC interval 468 [facility] P axis 1 45 [facility] QRS axis 1 7 [facility] T wave axis 37 [facility] EKG impression Sinus [facility] tachycardia-Otherwise normal ECG-In automated comparison with ECG of 20-AUG-2019 06:19,-T wave amplitude has decreased in Lateral leads- Specimen Narrative Performed At This result has an attachment that is no t available. Performing Organization Address [facility]ori Phone Number [facility] MUSE [address] [place] [address] [place] > I Hour (08/20/2019 6:39 PM CDT) Specimen Narrative Performed At EXAMINATION: [place] > 1 HOUR [facility] C-arm fluoroscopy was requested in OR. [id number] OR ROOM: 5 PROCEDURE: INTRAMEDULLARY RODDING, RIGHT FEMUR START TIME: 1600 END TIME: 1840 FLUORO TIME: 2min 50sec DOSAGE: 43.31mGy IMPRESSION: Intraoperative fluoroscopic images. Radiologist was no t present during the examination. Separate operative report will be issued by the physic rosalind performing the procedure. [id number] Procedure Note Hm Interface, Radiology Results Incoming - 08/26/2019 2:35 PM CDT EXAMINATION: [place] > 1 HOUR C-arm fluoroscopy was requested in OR. OPC19 OR ROOM: 5 PROCEDURE: INTRAMEDULLARY RODDING, RIGHT FEMUR START TIME: 1600 END TIME: 1840 FLUORO TIME: 2min 50sec DOSAGE: 43.31mGy IMPRESSION: Intraoperative fluoroscopic images. Radi ologist was not present during the examination. Separate operative report will be issued by the physician performing the procedure. [id number] Performing Organization Address City/State/Zipcode Phone Number [facility] [address] [place] [address] Airway (08/20/2019 5:02 PM CDT) Narrative Performed At Gwen Proctor CRNA 08/20/2019 5:07 PM Airway Date/Time: 08/20/2019 4:20 PM Performed by: Gwen Proctor CRNA Authorized by: Driss Melchor MD Difficult Airway: No Preoxygenated with 100% O2: Yes C-spine Precautions Maintained Throughou t: Yes Mask Ventilation: Easy mask Final Airway Type: Endotracheal airway Final Endotracheal Airway: ETT Cuffed: Yes Technique Used: Video laryngoscopy Devices/Methods Used in Placement: Int ubating stylet Insertion Site: Oral Blade Type: Juana Laryngoscope Blade/Videolaryngoscope Abhilash de Size: 3 ETT Size (mm): 7.0 Cuff at minimum occlusion pressure: Yes Measured from: Lips ETT to Lips (cm): 23 Placement Verified by: CO2 detection and direct visualization Laryngoscopic view: Grade I - full vie w of glottis Rapid Sequence Induction (RSI): No Modified RSI: No Number of Attempts at Approach: 1 glidescope electively used due to limited neck mobili ty XR Hip 2-3 View Right (08/20/2019 10:16 AM CDT) Specimen Narrative Performed At EXAMINATION: XR HIP 2-3 VIEWS RIGHT [facility] CLINICAL HISTORY: 73 years Female R ight IT fracture COMPARISON: None available at this eron e. IMPRESSION: There is an acute, impacted, intertrochanteric fractur e of the right femur with moderate angulation and displ acement. Joint space narrowing of the right hip No suspicious focal blastic or lytic les ions No radiopaque foreign bodies are present . Procedure Note Interface, Radiology Results Incoming - 08/20/2019 11:11 AM CDT EXAMINATION: XR HIP 2-3 VIEWS RIGHT CLINICAL HISTORY: 73 years Female Rig ht IT fracture COMPARISON: None available at this time . IMPRESSION: There is an acute, impacted, intertrocha nteric fracture of the right femur with moderate angulation and displacement. Joint space narrowing of the right hip No suspicious focal blastic or lytic les ions No radiopaque foreign bodies are present . Performing Organization Address City/[facility]/Zipcode Phone Number [facility] [address] [place] [address] XR Pelvis 1 Or 2 Vw (08/20/2019 10:16 AM CDT) Specimen Narrative Performed At EXAMINATION: XR PELVIS 1 OR 2 VW [facility] CLINICAL HISTORY: Hip fracture COMPARISON: None. FINDINGS: Intertrochanteric fracture right femur w ith moderate varus deformity Femoral head maintained within the aceta bulum Pelvic ring intact. Vertebral augmentati on changes at L4 and L5. Underlying osteopenia IMPRESSION: Intertrochanteric fracture right femur [id number] Procedure Note Interface, Radiology Results Incoming - 08/20/2019 10:41 AM CDT EXAMINATION: XR PELVIS 1 OR 2 VW CLINICAL HISTORY: Hip fracture COMPARISON: None. FINDINGS: Intertrochanteric fracture right femur w ith moderate varus deformity Femoral head maintained within the aceta bulum Pelvic ring intact. Vertebral augmentati on changes at L4 and L5. Underlying osteopenia IMPRESSION: Intertrochanteric fracture right femur [id number] Performing Organization Address [facility]/Zipcode Phone Number [facility] [address] [place] [address] XR Wrist 3+ Vw Left (08/20/2019 10:15 AM CDT) Specimen Narrative Performed At EXAMINATION: XR WRIST 3 VW LEFT [facility] CLINICAL HISTORY: Left wrist pain COMPARISON: None. IMPRESSION: Severe degenerative change at the first carpometacarpal articulation Moderate degenerative osteophytic change at the triscaphe articulation No carpal fracture or dislocation Distal radius and ulna well-maintained [id number] Procedure Note Interface, Radiology Results Incoming - 08/20/2019 10:40 AM CDT EXAMINATION: XR WRIST 3 VW LEFT CLINICAL HISTORY: Left wrist pain COMPARISON: None. IMPRESSION: Severe degenerative change at the first carpometacarpal articulation Moderate degenerative osteophytic change at the triscaphe articulation No carpal fracture or dislocation Distal radius and ulna well-maintained [id number] Performing Organization Address City/[facility]/Zipcode Phone Number [facility] [address] [place] [address] Comprehensive metabolic panel (08/20/2019 7:42 AM CDT)Only the most recent of2 resultswithin the time period is included. Pathologist [facility] Sodium 134 (L) 135 - 148 [facility] mEq/L [facility] Potassium 4.2 3.5 - 5.0 [facility] mEq/L [facility] Chloride 96 (L) 98 - 112 [facility] mEq/L [facility] CO2 23 (L) 24 - 31 mEq/L [facility] Anion gap 15@ANIO 7 - 15 mEq/L [facility] BUN 13 8 - 23 mg/dL [facility] Creatinine 0.64 0.50 - 0.90 [facility] mg/dL [facility] Glucose 115 (H) 65 - 99 mg/dL [facility] Calcium 9.6 8.8 - 10.2 [facility] mg/dL [facility] Protein 7.5 6.3 - 8.3 [facility] Comment: g/dL [facility] [place] 4.6-7.0 g/dL 1 week 4.4-7.6 g/dL 7 months-1year 5.1-7.3 g/dL 1-2 years 5.6-7.5 g/dL >3 years 6.0-8.0 g/dL 18-150 6.3-8.3 g/dL Albumin 3.5 3.5 - 5.0 [facility] g/dL [facility] A/G ratio 0.9 0.7 - 3.8 [facility] Alkaline phosphatase 41 35 - 104 U/L [facility] AST 39 (H) 10 - 35 U/L [facility] ALT 22 5 - 50 U/L [facility] Total bilirubin 1.2 0.0 - 1.2 [facility] mg/dL [facility] Specimen Blood Performing Organization Address City/State/Zipcode Phone Number [facility] DEPARTMENT OF PATHOLOGY AND [address] [place], [place] [address] GENOMIC MEDICINE [facility] [address] [place] [address] Prepare RBC (08/20/2019 7:35 AM CDT) Pathologist [facility] Product name Apheresis RC [facility] ACDA>-3 [facility] Unit number [id number] [facility] Product code [id number] [facility] Dispense status [facility] Blood expiration date [id number] [facility] Blood type code 5100 [facility] Blood type O POSITIVE [facility] Compatibility Compatible [facility] Product name Red Blood Cells [facility] -1, Leukored [facility] Unit number [id number] [facility] Product code [id number] [facility] Dispense status Returned to BB not [facility] transfused [facility] Blood expiration date [id number] [facility] Blood type code 5100 [facility] Blood type O POSITIVE [facility] Compatibility Compatible [facility] Specimen Performing Organization Address City/State/Zipcode Phone Number [facility] DEPARTMENT OF PATHOLOGY AND [address] [place] [address] [phone] [address] Type and screen (08/20/2019 7:35 AM CDT) Pathologist Sig nature ABO grouping O [facility] Rh type POS [facility] Antibody screen (gel) NEG [facility] Specimen Blood Performing Organization Address City/[facility] Phone Number [facility] DEPARTMENT OF PATHOLOGY AND [address] [place] [address] [phone] [address] Hemoglobin A1c (08/20/2019 4:50 AM CDT) Hemoglobin A1C 5.4 4.0 - 5.6 % [facility] Comment: HOSPITAL HbA1c cutoffs for diagnosing diabetes: 4.0% - 5.6% = normal 5.7% - 6.4% = increased risk for diabetes (prediabetes )9 >=6.5% = diabetes9 Goals for glycemic control (ADA 2016) < 7.0% Target for non adults with diabetes. More or less stringent targets may be appropriate for individual patients. <7.5% Target for Children and adolescents with type 1 diabetes. Specimen Blood Performing Organization Address City/State/Zipcode Phone Number [facility] DEPARTMENT OF PATHOLOGY AND [address] [place] [address] [phone] [address] Lipid panel (08/20/2019 4:50 AM CDT) Cholesterol 166 <200 mg/dL [facility] Triglycerides 57 <150 mg/dL [facility] HDL cholesterol 89 >40 mg/dL [facility] LDL cholesterol 80Comment: Result <100 mg/dL [facility] obtained by direct PENTECOSTALISM LDL measurement [facility] Lipid panel [facility] interpretation Comment: PENTECOSTALISM Total Cholesterol (mg/dL) HOSPIT AL <200 Desirable 200-239 Borderline-high >=240 High Triglycerides (mg/dL) <150 Normal 150-199 Borderline-high 200-499 High >=500 Very high HDL Cholesterol (mg/dL) <40 Low (male) <40 Low (female) LDL Cholesterol (mg/dL) <100 Optimal 100-129 Near or above optimal 130-159 Borderline-high 160-189 High >=190 Very high Risk Catergories that modify LDL goals. Risk Catergories LDL goal (mg/d L) CHD and CHD risk equivalent <100 (10-year risk >20%) Multiple (2+) risk factors <130 (10-year risk =<20%) 0-1 risk factors <160 (<10-year risk) Defining levels of lipids in metabolic syndrome Triglycerides >=150 mg/dL HDL Cholesterol Men <40 mg /dL Women <40 mg/ dL Non-HDL cholesterol is a second target for therapy in persons with high triglycerides (>=200 mg/dL) Specimen Blood Performing Organization Address City/[facility] Phone Number [facility] DEPARTMENT OF PATHOLOGY AND [address] [place] [address] [phone] GENOMIC MEDICINE [address] [address] XR Upper Extremity External Study (08/19/2019 10:25 PM CDT) Specimen Narrative Performed At This exam was not acquired at a Method[facility] t facility and has not been RADIANT interpreted by a Yazid[employer] Provider. T he exam was imported into our imaging system. Performing Organization Address [facility] Centercode Phone Number [facility] [address] [place] [address] CT Head External Study (08/19/2019 10:17 PM CDT) Specimen Narrative Performed At This exam was not acquired at a Methodis t facility and has not been RADIANT interpreted by a Yazidism Provider. T he exam was imported into our imaging system. Performing Organization Address [facility] Centercode Phone Number [facility] [address] [place] [address] Drug Screen (04/19/2019)Only the most recent of2 resultswithin the time period is included. Narrative Performed At This result has an attachment that is no t available. 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
--- OUTSIDE RECORDS SUMMARY | 2019-10-09 01:19 | XMS REPORT | Clinical Summary ---
:1945 Author Organization [facility] Address [address] [place] [address] Care Team Providers Name Role Phone Sven [...] Not on file Results Not on fileafter 10/08/2018 Insurance Payer Benefit Plan / Subscriber ID Type Phone Address Group MEDICARE MEDICARE A B xxxxxxxxxx Medicare [place]UE [place] INDEMNITY [place] xxxxxxxxxxxx PPO [address] [place] [address] (Home) [place] [address] Advance Directives For more information, please contact:[facility] [place], [place] [phone] Code Status Date Activated Date Inactivated Comments Full Code 11/29/2016 5:49 AM 12/09/2016 3:06 PM This code status was determined by: Patient Code ONE 06/10/2013 12:15 PM 06/10/2013 3:46 PM All possib le means of support, including: cardi ac massage, mechanical ventilation, and defibrillation will be used to suppo rt life.
--- OUTSIDE RECORDS SUMMARY | 2019-10-09 01:27 | XMS REPORT | Continuity of Care Document ---
:1945 Author Organization [facility] t Address [address] [place] [address] Care Team Providers Name Role Phone Sven Johnson MD Primary Care Physician Rene Mota MD Attending Clinician Landon MCMULLEN Attending Clinician Unavailable Uvaldo MCMULLEN Attending Clinician Unavailable Elisa ALVAREZ, H. Attending Clinician Cornell MCMULLEN Attending Clinician Unavailable King RICO Attending Clinician Unavailable Annette Vasquez MD Attending Clinician Deysi Delacruz MD Attending Clinician Lobo Melchor MD Attending Clinician Brock Alegria MD Attending Clinician Afshin GÓMEZ, T Attending Clinician Unavailable RAEANN STEWARD Attending Clinician Unavailable NATALIE Admitting Clinician Unavailable RAEANN STEWARD Admitting Clinician Unavailable Payers Payer Name Policy Policy Number Effective Expiration Source Type Date Date MEDICAREMEDICARE PART xxxxxxxxxxx 2008 Regan Herrera AND 00:00:00 [place]03/[place]xxx 2008 Faina ston MEDICARE 00:00:00 [employer] Witness SUPPLEMENTxxxxxxxxxxx [facility] Condition Condition Condition Status Onset Resolution Last Treating Co mments Source Name Details Category Date Date Treatment Clinician Date Other Other Disease Active [facility] chronic chronic 6-18 Methodi pain pain 00:00: st 00 Femur Femur Disease Active [facility] fracture fracture 5-26 Method i 00:00: st 00 Hyponatrem Hyponatrem Disease Active [facility] uche ia ia 5-25 Methodi 00:00: st 00 Hip Hip Disease Active [facility] fracture fracture 5-22 Method i 00:00: st 00 Closed Closed Disease Active [facility] displaced displaced 5-22 Meth [place] intertroch intertroch 00:00: st anteric anteric 00 fracture fracture of right of right femur femur 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 6-14 [place] thrombosis thrombosis 00:00: st (DVT) of (DVT) of 00 proximal proximal vein of vein of left lower left lower extremity extremity Pathologic Pathologic Disease Active H uche al al 1-12 Methodi fracture fracture 00:00: st of right of right 00 radius due radius due to to osteoporos osteoporos is, is, sequela sequela Fracture Fracture Disease [facility] lumbar of lumbar 11-29 [facility] - spine spine 00:00: Medical 00 [place] 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[facility] St homer coronel 11-29 [facility] - malnutriti malnutriti 00:00: Me dical on, severe on, severe 00 Ce nter Acute low Acute low Disease Active [facility] back pain back pain 11-29 [facility] s - 00:00: Medical 00 [place] Physical Physical Disease Active [facility] deconditio deconditio 11-29 Stacy kes - rylee ryele 00:00: Medical 00 [place] Chest pain Chest pain Disease Active [facility] 11-29 [facility] - 00:00: Medical 00 [place] Chronic Chronic Disease Active [facility] prescripti prescripti 8-10 Me thodi on opiate on opiate 00:00: st use use 00 Bilateral Bilateral Disease Active Faina ston hip hip 8-10 Methodi bursitis bursitis 00:00: st 00 Chronic Chronic Disease Active [facility] cervical cervical 7-11 Method i radiculopa radiculopa 00:00: st thy thy 00 Scoliosis Scoliosis Disease Active Faina ston 7 Methodi 00:00: st 00 Myalgia Myalgia Disease Active Lyman 7- Methodi 00:00: st 00 Back pain Back pain Disease Active Faina ston 3 Methodi 00:00: st 00 Cervicalgi Cervicalgi Disease Active [place] a a 3 Methodi 00:00: st 00 Lumbar Lumbar Disease Active [facility] radicular radicular 3- Meth [place] pain pain 00:00: st 00 Hip pain, Hip pain, Disease Active Faina ibarra chronic chronic 3 Methodi 00:00: st 00 Lumbar Lumbar Disease Active [facility] disc disc 3 Methodi disease disease 00:00: st 00 Venous Venous Problem Active [facility] insufficie insufficie Stacy k[facility] both lower l extremitie extremitie Ou tpati s s ent Clinics Osteoporos Osteoporos Problem Active [facility] is is [facility] HTN HTN Problem Active [facility] (hypertens (hypertens Stacy kes - ion) ion) [facility] Adjustment Adjustment Problem Active [facility] disorder, disorder, Luke s - unspecifie unspecifie Me moria d d l Outpati ent Clinics History of History of Problem Active [facility] fall fall [facility] Other Other Problem Active [facility] pulmonary pulmonary Luke s - embolism embolism Memori a without without l acute cor acute cor Outp ati pulmonale, pulmonale, en t unspecifie unspecifie Cl inics d d chronicity chronicity Anxiety Anxiety Problem [facility] GERD GERD Problem Active [facility] (gastroeso (gastroeso Stacy kes - phageal phageal Memoria reflux reflux l disease) disease) Outpat i ent Clinics Flu Flu Problem Active [facility] vaccine vaccine [facility] - need need [facility] ent [facility] Allergic Allergic Problem Active [facility] Chronic Chronic Problem Active [facility] back pain back pain [facility] - [facility] 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 [facility] Anorexia Anorexia Problem [facility] Sleep Sleep Problem Active [facility] apnea, apnea, [facility] - obstructiv obstructiv Me moria e e l [facility] Constipati Constipati Problem Active [facility] on on [facility] Iron Iron Problem Active [facility] deficiency deficiency Stacy kes - anemia, anemia, Memoria unspecifie unspecifie l d iron d iron [facility] deficiency en t anemia anemia Clinics type type Anemia due Anemia due Problem Active [facility] to other to other [facility] - cause, not cause, not Me moria classified classified l 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 of [facility]ukes - bilateral bilateral Solitario manpreet lower lower l extremitie extremitie Ou tpati s with s with ent other other Clinics complicati complicati ons ons Hypertensi Hypertensi Disease Active Overview : [facility] on on bp [facility] medicatio n x 3 yrs Allergies, Adverse Reactions, Alerts Allergy Allergy Status Severity Reaction(s) Onset Inactive Treating Comm ents Source Name Type Date Date Clinician Ciproflo Propensi Active Other (See 2018-03 Regan gibson ty to Comments) 05-17 Methodi adverse 00:00: st reaction 00 s to drug Doxycycl Propensi Active Other (See 2015-03 Abdominal Lyman ine ty to Comments) 05-12 pain Methodi Hyclate adverse 00:00: st reaction 00 s to drug Erythrom Propensi Active Nausea Only 2015-03 H uche ycin ty to 05-12 Methodi adverse 00:00: st reaction 00 s to drug Gabapent Propensi Active Other (See 2015-03 disorient Lyman in ty to Comments) 05-12 ation Methodi adverse 00:00: st reaction 00 s to drug Glycopyr Propensi Active Nausea Only 2015-03 H uche rolate ty to 05-12 Methodi adverse 00:00: st reaction 00 s to drug Levoflox Propensi Active Nausea Only 2016- [place] acin ty to 2-12 Methodi adverse 00:00: st reaction 00 s to drug Moxiflox Propensi Active Nausea Only 2016- [place] acin ty to 2-12 Methodi adverse 00:00: st reaction 00 s to drug Nabumeto Propensi Active Nausea Only 2016- [place] ne ty to 2-12 Methodi adverse 00:00: st reaction 00 s to drug Tolterod Propensi Active Nausea Only 2016- [place] ine ty to 2-12 Methodi adverse 00:00: st reaction 00 s to drug Gabapent Drug Active Other (See 2014-[address] in Intolera Comments) 0-06 ation [facility] - nce 00:00: Medical 00 [place] Nabumeto Drug Active Nausea Only 2014-[address] [facility] ne Intolera 0-06 [facility] - nce 00:00: Medical 00 [place] Moxiflox Drug Active Nausea Only [facility] acin Intolera 3-13 [facility] - nce 00:00: Medical 00 [place] Tolterod Drug Active Nausea Only [facility] ine Intolera 3-13 [facility] - nce 00:00: Medical 00 [place] Doxycycl Drug Active Other (See Abdominal [facility] HI [facility] ine Intolera Comments) 3-13 pain [facility] - Hyclate nce 00:00: Medical 00 [place] Erythrom Drug Active Nausea Only [facility] ycin Intolera 3-13 [facility] - nce 00:00: Medical 00 [place] Levoflox Drug Active Nausea Only 2013- [facility] acin Intolera 3-13 [facility] - nce 00:00: Medical 00 [place] Glycopyr Drug Active Nausea Only 2013- [facility] rolate Intolera 3-13 [facility] - nce 00:00: Medical 00 [place] Butorpha Drug Active Anaphylaxis 2013- [facility] nol Allergy 3-12 [facility] - Tartrate 00:00: Medical 00 [place] Adhesive Propensi Active Itching, Itching & [place] Tape-Jada ty to Swelling 8-20 swellingI Met hodi icones adverse 00:00: tching & st reaction 00 swelling s to drug Butorpha Propensi Active Anaphylaxis, "brings Toney nol ty to Palpitations 8-20 on Meth [place] Tartrate adverse 00:00: cardiac st reaction 00 arrest" s to drug Clarithr Propensi Active Palpitations High Toney omycin ty to 8-20 heart Methodi adverse 00:00: rate st reaction 00 s to drug Stadol Adverse Active anaphylaxis [facility] Reaction [facility] Neuronti Adverse Active anaphylaxis [facility] n Reaction [facility] Ciproflo Adverse Active Info Not [facility] xacin Reaction Available [facility] Family History Family Member Diagnosis Comments Start Date Stop Date Source Natural father Cancer Lyman Me thodist Natural mother Heart attack L[facility] [employer] [facility] Natural mother Hypertension L[facility] [facility] Natural mother Osteoporosis L[facility] [facility] Paternal grandfather Stroke [place] Paternal grandmother Stroke [place] [facility] Natural sister Diabetes L[facility] Me thodist Social History Social Habit Start Date Stop Date Quantity Comments Source History of tobacco Cigarette Smoker [facility]yman use [employer] Witness Sex Assigned At Lyman [facility] Witness Exposure to Not sure Lyman SARS-CoV-2 (event) Method ist Cigarettes smoked 2019-08-25 2019-08-25 [facility] current (pack per 00:00:00 00:00:[address] day) - Reported Cigarette 2019-08-25 2019-08-25 Lyman pack-years 00:00:00 00:00:00 [employer] Alcohol intake 2019-08-25 2019-08-25 Current Lyman 00:00:00 00:00:00 non-drinker of [employer] alcohol (finding) Smoking Status Start Date Stop Date Source Former smoker 2019-08-25 00:00:00 2019-08-25 00:00:00 [facility] [facility] Medications Ordered Filled Start Stop Current Ordering Indication Dosage Frequency Signature Comments Components Source Medication Medication Date Date Medication? Clinician (SIG) Name Name oxyCODone 2020- No chronic 20mg Q.25D Take 1 [place] (ROXICODONE 6-26 06-15 pain tablet (20 M ethodi ) 20 MG 00:00: 00:00 mg total) st tablet 00 :00 by mouth 4 (four) times a day for 30 days .chronic pain. tiZANidine Yes 4mg Q8H Take 1 [place] (ZANAFLEX) 6-18 tablet (4 [place] 4 MG tablet 00:00: mg total) s t 00 by mouth every 8 (eight) hours as needed for muscle spasms. oxyCODone 2019- No chronic 20mg Q.25D Take 1 [place] (ROXICODONE 6-15 -18 pain tablet (20 M ethodi ) 20 MG 00:00: 00:00 mg total) st tablet 00 :00 by mouth 4 (four) times a day for 30 days .chronic pain. spironolact 2019- No spironolac [facility]yman one 08-26 tone 25 mg Methodi (ALDACTONE) 20:46: 00:[address] 25 MG 34 :00 tablet pregabalin 2019- No 75mg [id number] Take 1 [facility] (LYRICA) 75 08-26 [id number] capsule Methodi MG capsule 00:00: 23:59 3D ([address] 00 :00 total) by mouth 3 (three) times a day for 30 days. traMADoL 2019- acute pain 50mg Q.[id number] Take 1 [facility] (ULTRAM) 50 08-26 [id number] tablet (50 Methodi mg tablet 00:00: 23:59 3D mg total) st 00 :00 by mouth 3 (three) times a day for 5 days .acute pain. oxyCODone 2019- No chronic 20mg Q.25D [facility] 08-25-15 pain tablet (20 M ethodi ) 20 MG 00:00: 00:00 mg total) st tablet 00 :00 by mouth 4 (four) times a day for 30 days .chronic pain. Max Daily Amount: 80 mg DULoxetine 2019- No duloxetine [facility]yman (CYMBALTA) 08-20 20 mg Methodi 20 MG 12:41: 00:00 capsule,de st capsule 53 :00 layed release lisinopril 2019- No lisinopril [facility] (PRINIVIL) 08-20 5 mg Methodi 5 mg tablet 12:41: 00:[address] 47 :00 fluticasone 2019- No 1{spray Q.5D 1 spray by [facility]yman propionate 08-20 } Each Nare Met hodi (FLONASE) 12:41: 00:[address] 50 22 :00 (two) mcg/actuati times a on nasal day. spray esomeprazol 2019- No 40mg QD Take 40 mg Toney e (NexIUM) 08-20 by mouth Meth [place] 40 MG 12:41: 00:[address] capsule 07 :00 before breakfast. morPHINE 2019- No acute pain 30mg Q4H Take 30 mg Toney immediate-r 08-20 by mouth Met hodi elease 30 11:03: 00:[address] MG tablet 25 :00 (four) hours as needed for severe pain .acute pain. oxyCODone 2019-2019- No 30mg Q.5D Take 30 mg [place] (OxyCONTIN) 08-20 by mouth Met hodi 30 MG 11:02: 00:[address] tablet 57 :00 (twelve) extended hours. release 12 hr oxyCODone 2019-2019- No chronic 20mg Q.25D Take 1 [place] (ROXICODONE 4-30 06-15 pain tablet (20 M ethodi ) 20 MG 00:00: 00:00 mg total) st tablet 00 :00 by mouth 4 (four) times a day for 30 days .chronic pain. oxyCODone 2019-2019- No chronic 20mg Q.25D Take 1 [place] (ROXICODONE 4-30 04-24 pain tablet (20 M ethodi ) 20 MG 00:00: 00:00 mg total) st tablet 00 :00 by mouth 4 (four) times a day for 30 days .chronic pain. tiZANidine 2019-2019- No 4mg Q8H Take 1 [place] (ZANAFLEX) 4-20 06-18 tablet (4 Met hodi 4 MG tablet [...] hours as needed for muscle spasms. oxyCODone 2019- No acute pain 15mg Q6H Take 15 mg Toney (ROXICODONE 1-20 20 by mouth Met hodi ) 15 MG 14:01: 00:[address] immediate 37 :00 (six) release hours as tablet needed for moderate pain .Acute Pain. tiZANidine 2019- No 4mg Q.[id number] Take 1 Toney (ZANAFLEX) 1-20 03-05 [id number] tablet (4 Methodi 4 MG tablet 00:00: 00:00 3D mg total) st 00 :00 by mouth 3 (three) times a day. oxyCODone 2019- No chronic 20mg Q.25D Take 1 [facility] (ROXICODONE 04-06 02-06 pain tablet (20 M ethodi ) 20 MG 00:00: 23:59 mg total) st tablet 00 :00 by mouth 4 (four) times a day for 30 days .chronic pain. Max Daily Amount: 80 mg tiZANidine 2018-03- No 4mg QD Take 1 Xiomara martin (ZANAFLEX) 05-19 tablet (4 Met hodi 4 MG tablet 00:00: 00:00 mg total) st 00 :00 by mouth daily for 90 days. oxyCODone-a 2018-03 oxycodone- [facility] cetaminophe 2-17 12-17 acetaminop M ethodi n [...] Memoria 00 l Outpati ent Clinics tiZANidine [place] (ZANAFLEX) 10-05 07-16 Methodi 4 MG tablet 00:00: 00:00 st 00 :00 NARCAN 4 2019- No UMU REP [place] mg/actuatio 09-30 0529 ALN Methodi n 00:00: 00:00 st spray,non-a 00 :00 erosol hydromorPHO 2019-0 2019- No TK 1 T PO Feng NE 7 12-17 Q 4 TO 6 H Methodi (DILAUDID) 00:00: 00:00 st 4 MG tablet 00 :00 Meclizine Meclizine Yes Stu [address] HCl HCl - [place] as needed [facility] - 00:00: Memoria 00 l Outpati ent Clinics ELIQUIS 5 Yes 5mg Q.5D 5 mg 2 [place] mg tablet 08-25 (two) Methodi 00:00: times a st 00 day. alendronate 2016-03- No [place] (FOSAMAX) 008-20 Methodi 70 MG 00:00: 00:00 st tablet 00 :00 atenolol 2015-03- No 25mg QD 25 mg [place] (TENORMIN) 04-22 daily. Method i 50 MG 00:00: 00:00 st tablet 00 :00 sucralfate 2015-03- No as needed. Toney (CARAFATE) 0-16 Methodi 1 gram 00:00: 00:00 st tablet 00 :00 VENTOLIN 2018- No [facility] HFA 90 9-12 07-16 Methodi mcg/actuati 00:00: 00:00 st on inhaler 00 :00 sucralfate 2014-03 Yes 1g Take [address] (CARAFATE) 0-06 by mouth [facility] - 1 g tablet 13:31: as needed Id dical 27 . [place] atenolol 2014-03 Yes 25mg QD Take [address] (TENORMIN) 0-06 by mouth [facility]ukes - 50 MG 13:31: daily. Medical tablet 27 Center clidinium-c 2014-03 Yes 1{capsu Q.5D Take [address] hlordiazepo 0-06 le} capsule by Stacy kimmy - xikatelynn 13:31: mouth 2 Medical (LIBRAX) 27 (two) Center 5-2.5 mg times per capsule daily. hydrochloro Yes 25mg QD Take [address] thiazide 3-13 by mouth [facility]ukes - (HYDRODIURI 11:28: daily. Medi guillermo L) 25 MG 30 Center tablet nitroglycer Yes .4mg Place 0.[address] in 3-13 mg under [facility]ukes - (NITROSTAT) 11:28: the tongue Medical 0.4 MG SL 30 every 5 Center tablet (five) minutes as needed. fluticasone Yes 1{spray QD [address] (FLONASE) 3-13 } Nasal [facility] - 50 11:28: route Medical mcg/actuati 30 daily. Center on nasal spray cetirizine Yes 10mg QD Take [address] (ZYRTEC) 10 3-13 by mouth Luke s - MG tablet 11:28: daily. Medica l 30 [place] esomeprazol Yes 40mg QD Take [address] e (NEXIUM) 3-12 by mouth [facility]ukes - 40 MG 13:57: daily. Medical capsule 50 [place] HYDROcodone Yes 1{tbl} Take [address] -acetaminop 3-12 tablet by Kamilla frost (NORCO 13:57: mouth Medica l 5-325) 50 every 6 Center 5-325 mg (six) per tablet hours as needed. Nexium Nexium Yes Stu 1 capsule [facility] [...] [facility] HCl HCl [place] QD PRN [facility] Vital Signs Vital Name Observation Time Observation Value Comments Source Body height 2019-10-08 12:41:00 162.6 cm Toney [employer] [facility] Body weight 2019-10-08 12:41:00 67.132 kg Feng [employer] [facility] BMI 2019-10-08 12:41:00 25.40 kg/m2 Toney [employer] [facility] Systolic blood 2019-08-27 19:19:24 129 mm[Hg] Xiomarato n [facility] Witness pressure Diastolic blood 2019-08-27 19:19:24 63 mm[Hg] Xiomarat on [employer] Witness pressure Heart rate 2019-08-27 19:19:24 97 /min Feng [employer] [facility] Body temperature 2019-08-27 19:19:24 37.06 Nishi [place] [facility] Respiratory rate 2019-08-27 19:19:24 15 /min Xiomara ton [employer] Witness Oxygen saturation in 2019-08-27 19:19:24 98 /min Feng Cummins Arterial blood by Pulse oximetry Procedures Procedure Date / Time Performing Clinician Source Performed BASIC METABOLIC PANEL 2019-08-27 04:29:00 Celio Ravi HC COMPLETE BLD COUNT 2019-08-27 04:29:00 Celio Ravi W/AUTO DIFF PHOSPHORUS LEVEL 2019-08-27 04:29:00 Celio Ravi on [employer] [facility] MAGNESIUM LEVEL 2019-08-27 04:29:00 Celio Ravi ESTIMATED GFR 2019-08-27 04:29:00 Lilly Vasquez INFLUENZA ANTIGEN TEST, 2019-08-26 14:30:00 Celio Ravi REFLEX NEGATIVE TO RPP RESPIRATORY PATHOGEN PANEL 2019-08-26 14:30:00 Lilly Vasquez COVID-19 QUALITATIVE PCR 2019-08-26 08:50:00 Celio Ravi BASIC METABOLIC PANEL 2019-08-26 05:04:00 Mitch Berrios HC COMPLETE BLD COUNT 2019-08-26 05:04:00 Mitch Berrios W/AUTO DIFF ESTIMATED GFR 2019-08-26 05:04:00 Lilly Vasquez XR CHEST 1 VW PORTABLE 2019-08-25 18:24:25 Celio Ravi BLOOD CULTURE, AEROBIC & 2019-08-25 12:15:00 Celio Ravi ANAEROBIC PROTHROMBIN TIME WITH INR 2019-08-25 05:30:00 Mitch Berrios PARTIAL THROMBOPLASTIN 2019-08-25 05:30:00 Mitch Berrios on [employer] [facility] TIME (PTT) BASIC METABOLIC PANEL 2019-08-25 05:30:00 Mitch Berrios [facility] [facility] HC COMPLETE BLD COUNT 2019-08-25 05:30:00 Mitch Berrios [employer] [facility] W/AUTO DIFF ESTIMATED GFR 2019-08-25 05:30:00 Lilly Vasquez URINE CULTURE 2019-08-24 15:05:00 Lilly Vasquez URINALYSIS SCREEN AND 2019-08-24 15:05:00 Mitch Berrios MICROSCOPY, WITH REFLEX TO CULTURE BASIC METABOLIC PANEL 2019-08-24 04:05:00 Mitch Berrios [facility] [facility] HC COMPLETE BLD COUNT 2019-08-24 04:05:00 Mitch Berrios [employer] [facility] W/AUTO DIFF ESTIMATED GFR 2019-08-24 04:05:00 Crissy Delacruz Met hodist HC COMPLETE BLD COUNT 2019-08-23 10:40:00 Crissy Delacruz on [employer] [facility] W/AUTO DIFF BASIC METABOLIC PANEL 2019-08-23 10:40:00 Crissy Delacruz on [facility] [facility] ESTIMATED GFR 2019-08-23 10:40:00 Crissy Delacruz Met hodist CBC WITH PLATELET AND 2019-08-23 09:26:00 Mitch Berrios [employer] [facility] DIFFERENTIAL BASIC METABOLIC PANEL 2019-08-23 09:26:00 Mitch Berrios [employer] [facility] ESTIMATED GFR 2019-08-23 09:26:00 Crissy Delacruz Met hodist HEMOGLOBIN & HEMATOCRIT 2019-08-22 23:18:[address] PELVIS WO CONTRAST 2019-08-22 21:42:14 Celio Ravi HEMOGLOBIN & HEMATOCRIT 2019-08-22 14:00:00 Mitch Berrios SODIUM LEVEL, URINE, 2019-08-22 14:00:00 AgustinaMitch Feng Cummins RANDOM OSMOLALITY, URINE 2019-08-22 14:00:00 SandrabullMitch Feng Me thodist XR CHEST 1 VW PORTABLE 2019-08-22 09:05:00 Celio Ravi Feng Cummins HC COMPLETE BLD COUNT 2019-08-22 04:45:00 ParsonsPoli pyle W/AUTO DIFF BASIC METABOLIC PANEL 2019-08-22 04:00:00 ParsonsPoli ESTIMATED GFR 2019-08-22 04:00:00 Lilly Vasquez URINE CULTURE 2019-08-21 20:16:00 Crissy Delacruz Met hodist URINALYSIS SCREEN AND 2019-08-21 20:16:00 Elliott Cleveland MICROSCOPY, WITH REFLEX TO CULTURE ECG 12-LEAD 2019-08-21 11:27:46 AgustinaMitch Feng Meth odsuma HC COMPLETE BLD COUNT 2019-08-21 05:23:00 ParsonsPoli pyle W/AUTO DIFF BASIC METABOLIC PANEL 2019-08-21 04:00:00 ParsonsPoli pyle MAGNESIUM LEVEL 2019-08-21 04:00:00 ParsonsPoli pyle Meth odist PHOSPHORUS LEVEL 2019-08-21 04:00:00 Poli Parsons Met hodist ESTIMATED GFR 2019-08-21 04:00:00 Lilly Vasquez OR FL > 1 HOUR 2019-08-20 18:39:22 ParsonsPoli pyle Meth odist ANESTHESIA INTUBATION 2019-08-20 17:02:55 Gwen Proctor INTRAMEDULLARY RODDING, 2019-08-20 16:13:00 Bryson Mota FEMUR XR HIP 2-3 VIEWS RIGHT 2019-08-20 10:16:25 Breezy Louie on [employer] [facility] XR PELVIS 1 OR 2 VW 2019-08-20 10:16:10 Breezy Louie XR WRIST 3+ VW LEFT 2019-08-20 10:15:11 Breezy Louie Feng [employer] [facility] COMPREHENSIVE METABOLIC 2019-08-20 07:42:00 Lilly Vasquez PANEL ESTIMATED GFR 2019-08-20 07:42:00 Bryson Mota Feng Meth odist PARTIAL THROMBOPLASTIN 2019-08-20 07:35:00 Poli Parsons on [facility] Witness TIME (PTT) PREPARE RBC 2019-08-20 07:35:00 Lilly Vasquez ECG 12-LEAD 2019-08-20 06:19:06 Kristie, Fnu Toney Meth odist HC COMPLETE BLD COUNT 2019-08-20 04:50:00 Kristie, Fnu Xiomarato n [facility] Witness W/AUTO DIFF PROTHROMBIN TIME WITH INR 2019-08-20 04:50:00 Kristie, Fnu [place] [facility] COMPREHENSIVE METABOLIC 2019-08-20 04:50:00 Kristie, Fnu Xiomara ton [employer] [facility] PANEL MAGNESIUM LEVEL 2019-08-20 04:50:00 Kristie, Jesus Albertou Toney Meth odist PHOSPHORUS LEVEL 2019-08-20 04:50:00 Kristie, Fnu Toney Met hodist LIPID PANEL 2019-08-20 04:50:00 Kristie, Jesus Albertou Toney Meth odist HEMOGLOBIN A1C 2019-08-20 04:50:00 Kristie, Fnu Toney Meth odist ESTIMATED GFR 2019-08-20 04:50:00 Lilly Vasquez XR UPPER EXTREMITY 2019-08-19 22:25:00 Lilly Vasquez on [facility] EXTERNAL STUDY CT HEAD EXTERNAL STUDY 2019-08-19 22:17[facility] DR[facility] SCREEN 2019-04-19 00:00:00 Daryl Hare DRUG SCREEN 2019-03-16 00:00:00 Daryl Hare Plan of Care Planned Activity Planned Date Details Comments Source Future Scheduled 2019-10-30 INFLUENZA VACCINE [place] love [facility] Test 00:00:00 [code = INFLUENZA VACCINE] Future Scheduled 2018-10-16 BREAST CANCER Toney Id thodist Test 00:00:00 SCREENING [code = BREAST CANCER SCREENING] Future Scheduled 2008-10-27 65+ PNEUMOCOCCAL Feng [facility] Test 00:00:00 VACCINE (1 of 2 - PCV13) [code = 65+ PNEUMOCOCCAL VACCINE (1 of 2 - PCV13)] Future Scheduled 1993-10-27 COLONOSCOPY SCREENING Regan thapa [facility] Test 00:00:00 [code = COLONOSCOPY SCREENING] Future Scheduled 1993-10-27 SHINGLES VACCINES [place] love [facility] Test 00:00:00 (#1) [code = SHINGLES VACCINES (#1)] Medication 2019-11-[address] [facility] [address] 00:00:00 (ROXICODONE) 20 MG tablet [code = 8825576] Medication 2019-10-[address] [facility] [address] 00:00:00 (ROXICODONE) 20 MG tablet [code = 6766229] Encounters Start End Encounter Admission Attending Care Care Encounter Source Date/Time Date/Time Type Type Clinicians Facility Department ID 2019-10-08 2019-10-08 Outpatient BRYSON MOTA [facility] [id number] [facility]yman 00:00:00 00:00:[id number] 2019-10-08 2019-10-08 Outpatient BRYSON MOTA [facility] [id number] [facility] 00:00:00 00:00:[address] 2019-09-16 2019-09-16 Outpatient ELISA [facility] [id number] [facility]yman 00:00:00 00:00:[address] 2019-08-20 2019-08-[address] [facility] [id number] [facility]yman 00:00:00 00:00:00 LILLY [address] 2019-08-05 2019-08-05 [facility] [id number] 14:58:00 14:58:00 [facility] [facility] 2019-07-22 2019-07-22 [facility] [id number] [facility] 12:29:00 12:29:00 Vivorte [facility] Medicine Outpati ent Clinics 2019-07-19 2019-07-19 Outpatient ELISA [facility] [id number] [place] 00:00:00 00:00:00 DARYL Andres [address]o [address] [facility] 2019-05-28 2019-05-28 [facility] [id number] 08:12:00 08:12:00 t Baird Baird [employer] s - [employer] [facility] Medicine Outpati ent Clinics 2019-05-25 2019-05-[address] [facility] [id number] [place] 00:00:00 00:00:00 DARYL Cuellarjanette lim 2019-05-20 2019-05-20 [facility] [id number] 09:00:00 09:00:00 t Baird Baird [employer] s - Drive [facility] Medicine l Medicine Outpati ent Clinics 2019-04-28 2019-04-28 [facility] [id number] 16:26:00 16:26:00 t Baird Baird [employer] s - Drive [facility] Medicine Outpati ent Clinics 2019-03-09 2019-03-09 [facility] [id number] 16:45:00 16:45:00 t Baird Baird [employer] s - Drive [facility] Medicine Outpati ent Clinics 2019-03-03 2019-03-03 [facility] [id number] 15:38:00 15:38:00 t Baird Baird [employer] s - Drive [facility] Medicine Outpati ent Clinics 2019-03-03 2019-03-03 [facility] [id number] 13:00:00 13:00:00 t Baird Baird [employer] s - Drive [facility] Medicine Outpati ent Clinics 2019-01-27 2019-01-27 [facility] [id number] 11:24:00 11:24:00 t Baird Baird [employer] s - Drive [facility] Medicine l Medicine Outpati ent Clinics 2019-01-07 2019-01-07 [facility] [id number] 11:56:00 11:56:00 t Baird Baird [employer] s - Drive [facility] Medicine Outpati ent Clinics 2019-01-04 2019-01-04 [facility] [id number] [address] 16:00:00 16:00:00 t Baird Baird [employer] - Drive [facility] Medicine Outpati ent Clinics 2018-12-23 2018-12-23 [facility] [id number] 14:16:00 14:16:[address] [facility] s - Drive [facility] Medicine l Medicine Outpati ent Clinics 2018-12-17 2018-12-17 [facility] [id number] 11:29:00 11:29:[address] [facility] s - Drive [facility] Medicine l Medicine Outpati ent Clinics 2018-12-14 2018-12-14 [facility] [id number] [address] 16:12:00 16:12:[address] [facility] s - Drive [facility] Medicine l Medicine Outpati ent Clinics 2018-12-02 2018-12-02 [facility] [id number] 14:45:00 14:45:[address] [facility] s - Drive [facility] Medicine l Medicine Outpati ent Clinics 2018-11-23 2018-11-23 [facility] [id number] 10:51:00 10:51:[address] [facility] s - Drive [facility] Medicine Medicine Outpati ent Clinics 2018-10-20 2018-10-20 [facility] [id number] [address] 15:40:00 15:40:[address] [facility] s - Drive [facility] Medicine l Medicine Outpati ent Clinics 2018-08-11 2018-08-11 [facility] [id number] 08:59:00 08:59:[address] [facility] s - Drive [facility] Medicine l Medicine Outpati ent Clinics 2018-08-10 2018-08-10 [facility] [id number] 15:55:00 15:55:[address] [facility] s - Drive [facility] Medicine l Medicine Outpati ent Clinics 2018-07-29 2018-07-29 [facility] [id number] 09:31:00 09:31:[address] [facility] s - Drive [facility] Medicine l Medicine Outpati ent Clinics 2018-07-21 2018-07-21 [facility] [id number] 11:45:00 11:45:[address] [facility] s - Drive [facility] Medicine l Medicine Outpati ent Clinics 2018-07-14 2018-07-14 [facility] [id number] 13:31:00 13:31:00 Vivorte [facility] Outpati ent Clinics 2018-07-01 2018-07-01 [facility] [id number] 14:10:00 14:10:00 Pllop.it [employer] [facility] Outpati ent Clinics 2018-07-01 2018-07-01 [facility] [id number] 11:45:00 11:45:00 Vivorte [facility] Medicine Outpati ent Clinics 2018-06-04 2018-06-04 [facility] [id number] 11:30:00 11:30:00 Pllop.it [employer] [facility] Outpati ent Clinics 2018-03-18 2018-03-18 [facility] [id number] 14:08:00 14:08:00 Vivorte [facility] Outpati ent Clinics 2018-01-12 2018-01-12 [facility] [id number] 08:45:00 08:45:00 Pllop.it [employer] [facility] Outpati ent Clinics 2018-01-05 2018-01-05 [facility] [id number] 14:00:00 14:00:00 Pllop.it [facility] Outpati ent Clinics Results Test Description Test Time Test Comments Results Result Comments Source Blood culture, aerobic & anaerobic 2019-08-30 13:03:04 Test Item Value Reference Range Interpretation Comme nts Blood culture isolate No growth after 5 days of Specimen InformationSpecimen (test code = 600-7) incubation. Source: BloodSpecimen Site: Antecubital Lef [facility] KrishnaistCOVID-19 qualitative [id number] 11:19:23 Test Item Value Reference Range Interpretation Comments Interpretation (test Negative results do code = 7442575) not preclude 2019-nCoV infection and should not be used as the sole basis for treatment or other patient management decisions. Negative results must be combined with clinical observations, patient history, and epidemiological information. COVID-19 qualitative Not-Detected Not-Detected PCR result (test code = 76558-3) COVID-19 qualitative See link below for C ase Number: PCR (test code = PDF Lab Report [id number]) UMU (test code = Report was revised to UMU) add the MethodologyMETHODOLOG Y:This assay utilizes reagents for nucleic acid amplification and real-time polymerase chain reaction. [place] MethodistBasic metabolic [id number] 05:33:02 Test Item Value Reference Range Interpretation Comments Sodium (test code = 2951-2) 138 135- 148 mEq/L Potassium (test code = 2823-3) 3.8 3.5- 5.0 mEq/L Chloride (test code = 2075-0) 102 98- 112 mEq/L CO2 (test code = 2027-9) 26 24- 31 mEq/L Anion gap (test code = 00449-5) 10@ANIO 7- 15 mEq/L BUN (test code = 3094-0) 7 mg/dL 8-23 L Creatinine (test code = 2160-0) 0.47 mg/dL 0.5-0.9 L Glucose (test code = 2345-7) 91 mg/dL 65-99 Calcium (test code = 22508-2) 9.1 mg/dL 8.8-10.2 Lab Interpretation (test code = Abnormal 38644-5) [place] MethodistMagnesium [id number] 05:33:02 Test Item Value Reference Range Interpretation Comments Magnesium (test code = 54106-6) 1.9 mg/dL 1.6-2.4 [place] MethodistEstimated [id number] 05:33:02 Test Item Value Reference Range Interpretation Comments Estimated GFR (test >=90 mL/min/1.73 m2 Caterg ory Units code = 5488) InterpretationG 1 >=90 Normal or highG2 60-89 Mildly bwkvirifoN6c 45-59 Mildly to mode rately evmcpavzvL9x 30-44 Moderately to severely decreasedG4 15-29 Severely decre asedG5 <15 Kidn ey failureThe eGFR was calculated brittny becerril the Chronic Kidney Disease Epidemiology Co llaboration (CKD-EPI) equat ion. Interpretation is based on recommendations of the National Kidney Foundation-Kidn ey Disease Outcomes Qualit y Initiative (NKF-KDOQI) pub lished in 2013. [place] MethodistPhosphorus [id number] 05:33:00 Test Item Value Reference Range Interpretation Comments Phosphorus (test code = 2777-1) 4.3 mg/dL 2.4-4.5 [place] MethodistCBC with platelet and gsdxbzmcuiev2004-97-49 05:00:07 Test Item Value Reference Range Interpretation Comments WBC (test code = 98203-4) 6.85 4.50- 11.00 k/uL RBC (test code = 37663-3) 2.94 m/uL 4.2-5.5 L HGB (test code = 718-7) 7.6 g/dL 12-16 L HCT (test code = 4544-3) 24.2 % 37-47 L MCV (test code = 787-2) 82.3 fL 82-100 MCH (test code = 785-6) 25.9 pg 27-34 L MCHC (test code = 786-4) 31.4 g/dL 31-37 RDW - SD (test code = 43.9 fL 37-55 29849-8) MPV (test code = 92408-0) 10.5 fL 8.8-13.2 Platelet count (test code 306 150- 400 k/uL = 66912-4) Nucleated RBC (test code 0.00 /100 WBC = 05427-0) Neutrophils (test code = 66.3 % 39-69 26659-8) Lymphocytes (test code = 17.2 % 25-45 L 32374-1) Monocytes (test code = 11.8 % 0-10 H 14267-2) Eosinophils (test code = 3.2 % 0-5 37653-2) Basophils (test code = 0.6 % 0-1 08192-3) Immature granulocytes 0.9 % 0-1 "Immat ure (test code = 84324-8) granul ocytes" (promyelocytes, myelocytes, metamyelocytes) Lab Interpretation (test Abnormal code = 61483-5) [place] MethodistRespiratory pathogen [id number] 21:05:03 Test Item Value Reference Interpretation Comments Range Adenovirus PCR (test Not Detected Specime n code = 7092) InformationSpec imen Source: Lingua.ly ecimen Site: Left Coronavirus HKU1 PCR Not Detected (test code = 7093) Coronavirus NL63 PCR Not Detected (test code = 7094) Coronavirus 229E PCR Not Detected (test code = 7095) Coronavirus OC43 PCR Not Detected (test code = 7096) Human Not Detected metapneumovirus PCR (test code = 7097) Human Not Detected rhinovirus/enterovir us PCR (test code = 7098) Influenza A PCR Not Detected (test code = 7099) Influenza A/H1 PCR Not Reported (test code = 7100) Influenza A/H3 PCR Not Reported (test code = 7102) Influenza A/H1-2009 Not Reported PCR (test code = 7101) Influenza B PCR Not Detected (test code = 7104) Parainfluenza virus Not Detected 1 PCR (test code = 7105) Parainfluenza virus Not Detected 2 PCR (test code = 7106) Parainfluenza virus Not Detected 3 PCR (test code = 7107) Parainfluenza virus Not Detected 4 PCR (test code = 7108) Respiratory Not Detected syncytial virus PCR (test code = 7109) Bordetella pertussis Not Detected PCR (test code = 2626307) Bordetella Not Detected parapertussis PCR (test code = 6477722) Chlamydia pneumoniae Not Detected PCR (test code = 3753) Mycoplasma Not Detected pneumoniae PCR (test code = 7110) Influenza A no sub Not Reported type PCR (test code = 7127) Toney MethodistInfluenza antigen test, reflex negative to [id number] 21:04:11 Test Item Value Reference Range Interpretation Comments Influenza Negative for Specimen antigen (test Influenza A/B [facility] ecimen code = 82626-8) antigen. [facility] Left Toney MethodistOR [place] > I [id number] 14:31:56Hm Interface, Radiology Results 08/26/2019 2:35 PM CDTEXAMINATION: OR FL > 1 HOURC-arm fluoroscopy was requested in OR. OPC19 OR ROOM: 5PROCEDURE: INTRAMEDULLARY RODDING, RIGHT FEMURSTART TIME: 1600END TIME: 1840FLUORO TIME: 2min 50secDOSAGE: 43.31mGyIMPRESSION:Intraoperative fluoroscopic images. Radiologist was not present during the examination.Separate operative report will be issued by the physician performing the procedure.[id number] MethodistXR Chest 1 Vw [id number] 19:16:24Hm Interface, Radiology Results 08/25/2019 7:19 PM CDTEXAMINATION: XR CHEST 1 VW PORTABLEINDICATION: acute fevers r o PNACOMPARISON: Aug 22 2019IMPRESSION:Decreased lung volumes compared to prior examination, resulting in increased bronchovascular crowding and hypoventilatory changes, thelatter greatest in the left lung base. The bronchovascular crowding could obscure subtle foci of airspace disease, but no confluent consolidation is identified to suggest active pneumonia. No pleural ef fusion or pneumothorax.Unchanged cardiomediastinal silhouette and osseous structures accounting for differences in technique.[id number] MethodistPartial thromboplastin time, [id number] 06:28:42 Test Item Value Reference Range Interpretation Comments PTT (test code = 35.1 23.0- 36.0 [place] [address]-0) unfractionated heparin is61.0-112.0 se conds which corresponds to Anti-Xa0.3-0.7 U/ml. [place] MethodistProthrombin time with [id number] 06:28:02 Test Item Value Reference Range Interpretation Comments Prothrombin time (test 15.7 11.5- 14.5 sec H code = 5902-2) INR (test code = 1.2 The Interna tional 67493-5) Normalized Rati o (INR) is a therapeuti c monitoring tool for patients who ar e stable on oral anticoagulant t herapy. An INR of 2.0-3 .0 is suggested for d eep vein thrombosis/pulm onary embolism. Lab Interpretation Abnormal (test code = 22650-0) Feng MethodistUrinalysis screen and microscopy, with reflex to culture 2019-08-24 16:10:24 Test Item Value Reference Range Interpretation Comments Specimen site (test code = Catheterized 0108294) Color, UA (test code = 5778-6) Yellow Appearance, UA (test code = Clear 5767-9) Specific gravity, UA (test code 1.009 1.001-1.035 = 5811-5) pH, UA (test code = 5803-2) 7.0 5.0-8.5 Protein, UA (test code = Negative Negative 15096-2) Glucose, UA (test code = Negative Negative 67782-0) Ketones, UA (test code = 2514-8) Negative Negative Bilirubin, UA (test code = Negative Negative 5770-3) Blood, UA (test code = 5794-3) Negative Negative Nitrite, UA (test code = 5802-4) Negative Negative Urobilinogen, UA (test code = 4.0 <2.0 A 89085-8) Leukocyte esterase, UA (test Negative Negative code = 5799-2) Epithelial cells, UA (test code 1 /HPF = 5787-7) WBC, UA (test code = 5821-4) 1 0- 4 /HPF RBC, UA (test code = 45564-4) <1 0- 5 /HPF Bacteria, UA (test code = None seen None seen 69385-4) Yeast, UA (test code = 36027-0) None seen Yeast with pseudohyphae, UA None seen (test code = 03105-6) Lab Interpretation (test code = Abnormal 25856-5) [place] MethodistUrine [id number] 16:01:52 Test Item Value Reference Range Interpretation Comments Urine culture (test SEE COMMENT Bacteriu manpreet screen code = 7332365) negative. [place] MethodistHemoglobin & [id number] 23:39:00 Test Item Value Reference Range Interpretation Comments HGB (test code = 718-7) 8.0 g/dL 12-16 L HCT (test code = 4544-3) 25.3 % 37-47 L Lab Interpretation (test code = Abnormal 87918-2) [place] MethodistCT Pelvis Wo [id number] 21:53:15Hm Interface, Radiology Results 08/22/2019 9:56 PM CDTEXAMINATION: CT PELVIS WO CONTRAST CLINICAL HISTORY: S p R hip surgery r o acute bleedCOMPARISON: Plain films dated August 20, 2019.TECHNIQUE: Multidetector computed tomographic axial images of pelvis were obtained without contrast utilizing radiation dose lowering technique including automated exposure control and iterative reconstruction. Images were acquired in bone and soft tissue algorithm with thin sections and multiplanar reformats archived and interpreted. 3-D reformats created by a dedicated medicine technologist at an independent workstation were also submitted for interpretation.IMPRESSION: 1.Instrumented right femoral shaft fracture partially visualized. Expected postoperative findings including operative bed gas. Along the lateral thigh soft tissues there is a small high density fluid collection measuring 7 x 6.0 x 2.4 cm compatible with a posttraumatic hematoma.2. Otherwise normal alignment of the pelvis without acutefracture, or muscle injury.3. No acute intrapelvic process. No bowel obstruction, pelvic mass, free pelvic fluid or significant lymphadenopathy. [facility]-[id number] MethodistOsmolality, urine 2019-08-22 17:32:22 Test Item Value Reference Range Interpretation Comments Osmolality, urine (test code = 510 50- 1,400 mOsm/kg 2695-5) [place] KrishnaistSodium level, urine, [id number] 17:11:19 Test Item Value Reference Range Interpretation Comments Sodium, urine, random (test code = 49 mEq/L 16489-7) [place] MethodistECG 12 [id number] 12:35:52 Test Item Value Reference Range Interpretation Comments Ventricular rate (test 109 code = 253) Atrial rate (test code 109 = 255) MN interval (test code 140 = 266) QRSD interval (test 72 code = 260) QT interval (test code 348 = 264) QTC interval (test code 468 = 265) P axis 1 (test code = 45 267) QRS axis 1 (test code = 7 268) T wave axis (test code 37 = 270) EKG impression (test Sinus code = 273) tachycardia-Otherwise normal ECG-In automated comparison with ECG of 20-AUG-2019 06:19,-T wave amplitude has decreased in Lateral leads- Toney KrishnaistPrepare [id number] 19:35:00 Test Item Value Reference Range Interpretation Comments Product name (test code Red Blood Cells -1, = 25) Leukored Unit number (test code [id number] = 2198769) Product code (test code T2963P14 = 3092) Dispense status (test Returned to not code = 24) transfused Blood expiration date (test code = 302) Blood type code (test 5100 code = 308) Blood type (test code = O POSITIVE 1314) Compatibility (test Compatible code = 6400) [place] NdvmmhfxeUhsugz9819-60-39 17:02:55Gwen Proctor CRNA 08/20/2019 5:07 PMAirwayDate/Time: 08/20/2019 4:20 PMPerformed by: Gwen Proctor CRNAAuthorized by: Driss Melchor MD Difficult Airway: No Preoxygenated with 100% O2: Yes C-spine Precautions Maintained Throughout: Yes Mask Ventilation: Easy maskFinal Airway Type: Endotracheal airwayFinal Endotracheal Airway: ETTCuffed: Yes Technique Used: Video laryngosco pyDevices/Methods Used in Placement: Intubating styletInsertion Site: OralBlade Type: MacintoshLaryngoscope Blade/Videolaryngoscope Blade Size: 3ETT Size (mm): 7.0Cuff at minimum occlusion pressure: Yes Measured from: LipsETT to Lips (cm): 23Placement Verified by: CO2 detection and direct visualization Laryngoscopic view: Grade I - full view of glottisRapid Sequence Induction (RSI): No Modified RSI: No Number of Attempts at Approach: 1 glidescope electively used due to limited neck mobilityLyman MethodistXR Hip 2-3 View Ifjkc0623-00-00 11:08:51Hm Interface, Radiology Results 08/20/2019 11:11 AM CDTEXAMINATION: XR HIP 2-3 VIEWS RIGHTCLINICAL HISTORY: 73 years Female Right IT fractureCOMPARISON: None available at this time.IMPRE SSION:There is an acute, impacted, intertrochanteric fracture of the right femur with moderate angulation and displacement.Joint space narrowing of the right hipNo suspicious focal blastic or lytic lesionsNo radiopaque foreign bodies are present.[facility] MethodistXR Pelvis 1 Or 2 [id number] 10:38:20Hm Interface, Radiology Results 08/20/2019 10:41 AM CDTEXAMINATION: XR PELVIS 1 OR 2 VWCLINICAL HISTORY: Hip fractureCOMPARISON: None.FINDINGS:Intertrochanteric fracture right femur with moderate varus deformityFemoral head maintained within the acetabulumPelvic ring intact. Vertebral augmentation changes at L4 and L5.Underlying osteopeniaIMPRESSION:Intertrochanteric fracture right femur [id number] MethodistXR Wrist 3+ Vw [id number] 10:36:55Hm Interface, Radiology Results - 08/20/2019 10:40 AM CDTEXAMINATION: XR WRIST 3 VW LEFTCLINICAL HISTORY: Left wrist painCOMPARISON: None.IMPRESSION:Severe degenerative change at the firstcarpometacarpal articulationModerate degenerative osteophytic change at the triscaphe articulationNocarpal fracture or dislocationDistal radius and ulna well-[id number] MethodistType and [id number] 08:41:00 Test Item Value Reference Range Interpretation Comments ABO grouping (test code = 883-9) O Rh type (test code = 32908-1) POS Antibody screen (gel) (test code = NEG 890-4) [facility] MethodistComprehensive metabolic [id number] 08:22:37 Test Item Value Reference Range Interpretation Comments Sodium (test code = 134 135- 148 mEq/L L 2951-2) Potassium (test code = 4.2 3.5- 5.0 mEq/L 2823-3) Chloride (test code = 96 98- 112 mEq/L L 2075-0) CO2 (test code = 2027-9) 23 24- 31 mEq/L L Anion gap (test code = 15@ANIO 7- 15 mEq/L 49041-4) BUN (test code = 3094-0) 13 mg/dL 8-23 Creatinine (test code = 0.64 mg/dL 0.5-0.9 2160-0) Glucose (test code = 115 mg/dL 65-99 H 2345-7) Calcium (test code = 9.6 mg/dL 8.8-10.2 10565-6) Protein (test code = 7.5 g/dL 6.3-8.3 -[place] n 2885-2) 4.6-7.0 g/dL1 week 4.4-7 .6 g/dL7 months-1y ear 5.1-7 .3 g/dL1-2 years 5.6-7 .5 g/dL>3 years 6.0-8 .0 g/xG44-502 6.3-8 .3 g/dL Albumin (test code = 3.5 g/dL 3.5-5 1751-7) A/G ratio (test code = 0.9 0.7-3.8 1759-0) Alkaline phosphatase 41 U/L 35-104 (test code = 6768-6) AST (test code = 1920-8) 39 U/L 10-35 H ALT (test code = 1742-6) 22 U/L 5-50 Total bilirubin (test 1.2 mg/dL 0-1.2 code = 1974-2) Lab Interpretation (test Abnormal code = 91712-9) [place] MethodistHemoglobin [id number] 08:10:58 Test Item Value Reference Range Interpretation Comments Hemoglobin A1C (test 5.4 % 4-5.6 HbA1c c utoffs for code = 91401-0) diagnosing d iabetes:4.0% - 5.6% = normal 5.7% - 6.4% = increase d risk for diabetes (prediabetes)9> =6.5% = jyrkgklt7Uzbgr for glycemic contro l (ADA 2016)< 7.0% Ta rget for non yasmin lts with diabetes. More or less stringent targe ts may be appropriate for individual hank ents. <7.5% Target for Children and ad olescents with type 1 xavier betes. [place] MethodistLipid [id number] 06:27:20 Test Item Value Reference Interpretation Comments Range Cholesterol (test 166 mg/dL <200 code = 2093-3) Triglycerides (test 57 mg/dL <150 code = 2571-8) HDL cholesterol 89 mg/dL >40 (test code = 2085-9) LDL cholesterol 80 mg/dL <100 Result obtai tucker by direct (test code = 2089-1) LDL ulisses surement Lipid panel SeeBelow Total Cholester ol (mg/dL) interpretation (test < 200 code = 84347-4) Desirable 200-239 Borderline -high >=240 Hi gh Triglyceri jefry (mg/dL) <150 No rmal 150-199 Borderline-high 200-499 High >=500 Very high HDL Choles terol (mg/dL) <40 Low (male) < 40 Low (female) L DL Cholesterol (mg /dL) <100 Optimal 1 00-129 Near or above o ptimal 130-159 Borderline-high 160-189 High >=190 Very high Risk Cat ergories that modify LDL goals.Risk Catergories LDL goal (mg/dL )CHD and CHD risk equiva lent <100 (10-year risk >20%)Multiple ( 2+) risk factors < 130 (10-year risk = <20%)0-1 risk factors <160 (<10-ye ar risk) Defining levels of lipids in metabolic syndromeTriglyc erides > =150 mg/dLHDL Choles terol Men <40 mg/dL Women <40 mg/dL Non-HDL cholest carl is a second target f or therapy in personswith high triglycerides ( >=200 mg/dL) Toney MethodistXR Upper Extremity External [id number] 05:46:41This exam was not acquired at a [facility] facility and has not been interpreted by a Jehov[employer] Witness Provider. The exam was imported into our imaging system.Toney MethodistCT Head External [id number] 05:46:02This exam was not acquired at a Jehov[employer] facility and has not been interpreted by a Jehovah'[employer] Witness Provider. The exam was imported into our imaging system.Toney MethodistANG, KYPHOPLASTY, LUMBAR, [id number] 08:42:00What level(s) should be performed->L4-5Reason for exam:->COMPRESSION FRACTUREFINAL REPORT HISTORY: L4 and L5 wedge vertebral compression fractures and sev ere lower back pain despite conservative therapy. PROCEDURE: [...] balloons were deflated, removed and a total offour cc of methyl methacrylate was infused into [...] FINDINGS: Images obtained during the procedure show theaccess needles, cannulas and balloons in expected positions within the L4 and L5 vertebral bodies. Fo llowing methacrylate infusion, adequate distribution is seen within the L4 and L5 vertebral bodies without extravasation. IMPRESSION: 1. Technically successful L4 and L5 percutaneous vertebral augmentation. No immediate complications. Total flouroscopy time: 9.7 minsEstimated dose reported as (Ka,r):619 mGy Signed: Driss Dominique MDReport Verified Date/Time: 12/11/2016 08:42:31 Reading Location: [place] [address] Angio Body Reading Room 08:42 AMBUN AND [id number] 06:18:00 Test Item Value Reference Range Interpretation Comments BLOOD UREA NITROGEN 14 mg/dL 7-21 (BEAKER) (test code = 354) CREATININE (BEAKER) 0.58 mg/dL 0.57-1.25 (test code = 358) EGFR (BEAKER) (test 102 mL/min/1.73 ESTIM ATED GFR IS code = 1092) sq m NOT ACCURATE CREATININE CLEARANCE IN PREDICTING GLOMERULAR FILTRATION RATE . ESTIMATED GFR I S NOT APPLICABLE FOR DIALYSIS PATIEN TS. CBC (HEMOGRAM ONLY)2016-12-08 05:52:00 Test Item Value [...] (BEAKER) (test code = 413) BASIC METABOLIC [id number] 06:49:00 Test Item Value Reference Range Interpretation [...] NOT APPLICABLE FOR DIALYSIS PATIEN TS. PROTHROMBIN [id number] 06:31:00 Test Item Value Reference Range Interpretation Comments PROTIME (BEAKER) (test code = 13.4 seconds 11.7-14.7 759) INR (BEAKER) (test code = 370) 1.0 <=5.9 RECOMMENDED COUMADIN/WARFARIN INR THERAPY RANGESSTANDARD DOSE: 2.0 - 3.0 Includes: PROPHYLAXIS forvenous thrombosis, systemic embolization; TREATMENT for venous thrombosis and/or pulmonary embolus.HIGH RISK: Target INR is 2.5-3.5 for patients with mechanical heart valves.[id number] 06:31:00 Test Item Value Reference Range Interpretation Comments PARTIAL THROMBOPLASTIN TIME 26.2 seconds 22.5-36.0 (BEAKER) (test code = 760) CBC W/PLT COUNT & AUTO [id number] 06:23:00 Test Item Value Reference Range Interpretation [...] 417) IMMATURE GRANULOCYTES-RELATIVE 1 % 0-1 PERCENT (LUKE) (test code = 2801) [facility], KEAGAN BENSON, [id number] 14:11:00Please do D SPECT camera for this patient Reason for exam:->Chest PainFINAL REPORT PROCEDURE: Rest/Stress MYOCARDIAL PERFUSION SPECT with regad enoson\\XA9\\ CPT CODE: 36126 INDICATION: Chest pain, acute, nonspecific, low probability [...] tracer distribution. 6. No previous [facility] study for comparison. NONINVASIVE RISK STRATIFICATION: The above findings are considered low risk (<1% annual mortality rate) based on the following criterion:- Normal or small myocardial perfusion defect at rest or with stres s(JACC. 2012;59(9):856-81.) Signed: Shweta Lockhart MDReport Verified Date/Time: 12/04/2016 14:11:13 Reading Location: [address] Reading Room RAD, SPINE, SCOLIOSIS STUDY, 2 OR 3 [id number] 16:17:00Reason for exam:- >scoliosis of lumbar spine, [...] MDReport Verified Date/Time: 12/03/2016 16:17:14 Reading Location: [facility] Radiology ReadingRoom MR, BRAIN, [id number] 09:02:00FINAL REPORT MRI brain with and without contrast Comparison: None Reason for exam: Neoplasm, ROLL FORGER primary, calcified meningioma Discussion: Multiplanar MR imaging of the brain was provided aog-wcp-azua IV gadolinium administration using T1, T2, FLAIR, [...] Rodriguez Verified Date/Time: 12/03/2016 09:02:27 Reading Location: [address] Neuro Reading Room [id number] 05:45:00 Test Item Value Reference Range Interpretation Comments MAGNESIUM (BEAKER) (test code = 1.8 mg/dL 1.6-2.6 627) BASIC METABOLIC [id number] 05:45:00 Test Item Value Reference Range Interpretation [...] PATIEN TS. CBC W/PLT COUNT & AUTO [id number] 05:31:00 Test Item Value Reference Range Interpretation [...] 417) IMMATURE GRANULOCYTES-RELATIVE 1 % 0-1 PERCENT (LUKE) (test code = 2801) TROPONIN [id number] 01:13:00 Test Item Value Reference Range Interpretation Comments TROPONIN I (LUKE) (test code = 397) < ng/mL 0.00-0.03 [...] acidosis, acute neurological disease, and persistent tachyarrhythmia.TROPONIN [id number] 19:15:00 Test Item Value Reference Range Interpretation Comments TROPONIN I (LUKE) (test code = 0.01 ng/mL 0.00-0.03 397) [...] acidosis, acute neurological disease, and persistent tachyarrhythmia.TROPONIN [id number] 12:09:00 Test Item Value Reference Range Interpretation Comments TROPONIN I (LUKE) (test code = 0.02 ng/mL 0.00-0.03 397) [...] renalfailure, acidosis, acute neurological disease, and persistent tachyarrhythmia.[id number] 06:18:00 Test Item Value Reference Range Interpretation Comments MAGNESIUM (BEAKER) (test code = 1.7 mg/dL 1.6-2.6 627) BASIC METABOLIC [id number] 06:18:00 Test Item Value Reference Range Interpretation [...] PATIEN TS. CBC W/PLT COUNT & AUTO [id number] 05:54:00 Test Item Value Reference Range Interpretation [...] 0-1 PERCENT (BEAKER) (test code = 2801) [id number] 10:28:00 Test Item Value Reference Range Interpretation Comments MAGNESIUM (BEAKER) (test code = 1.6 mg/dL 1.6-2.6 627) BASIC METABOLIC [id number] 10:28:00 Test Item Value Reference Range Interpretation [...] NOT APPLICABLE FOR DIALYSIS PATIEN TS. LIPID [id number] 10:28:00 Test Item Value Reference Range Interpretation [...] Borderline 130-159 High 160-189 Very High >=190PROTHROMBIN [id number] 10:22:00 Test Item Value Reference Range Interpretation [...]
[2019-10-09] MEDS ORDERED: ONDANSETRON 4 MG (ODT) TAB ONE (01:49)
[2019-10-09] MEDS ORDERED: HYDROMORPHONE HCL 1 MG/ML INJ ONE (01:49)
--- NOTE | 2019-10-09 02:24 | EDPHYS ---
Physician Documentation [facility] Name: Arianne Ambriz Age: 73 yrs Sex: Female : 1945 Arrival Date: 10/09/2019 Time: 01:12 Bed 15 Private MD: ED Physician Albert Tong HPI: 10/08 01:44 This 73 yrs old Female presents to ER via Wheelchair with complaints of Hip jmm Pain. 01:44 The patient or guardian reports pain. Onset: The symptoms/episode began/occurred jmm gradually. Modifying factors: The symptoms are alleviated by nothing, the symptoms are aggravated by any movement, weight bearing. This is a 73 year old female with a history of chronic pain that presents to the ED with complaints of right lateral hip pain worsening since her surgery 1.5 months prior. Patient visited with her orthopedic surgeon whom evaluated the hip and stated it was healing. Patient states she is out of her chronic pain medications and cant stand the pain. Denies any new injury. Denies fever. . Historical: - Allergies: 01:22 butorphanol; sg 01:22 Ciprofloxacin (DIZZINESS); sg 01:22 Erythromycin; sg 01:22 GABAPENTIN; sg 01:22 Levaquin; sg 01:22 Neurontin; sg 01:22 Stadol; (cardiac arrest); sg 01:22 TETRACYCLINES; sg - PMHx: 01:22 Arthritis; Back pain; William hip bursitis; Chronic pain; Complication of anesthesia; DVT; sg GERD; Hypertension; - PSHx: 01:22 back fractures x 3, shoulder/knee surgeries; sg - Immunization history:: Adult Immunizations up to date. - Social history:: Smoking status: Patient denies any tobacco usage or history of. ROS: 01:44 Constitutional: Negative for fever, chills, and weight loss, Cardiovascular: Negative jmm for chest pain, palpitations, and edema, Respiratory: Negative for shortness of breath, cough, wheezing, and pleuritic chest pain. 01:44 MS/extremity: Positive for pain. 01:44 All other systems are negative. Exam: 01:44 Head/Face: atraumatic. Eyes: EOMI, no conjunctival erythema appreciated ENT: Moist jmm Mucus Membranes Neck: Trachea midline, Supple Chest/axilla: Normal chest wall appearance and motion. Cardiovascular: Regular rate and rhythm. No edema appreciated Respiratory: Normal respirations, no respiratory distress appreciated Abdomen/GI: Non distended, soft Back: Normal ROM Skin: General appearance color normal Neuro: Awake and alert, normal gait Psych: Behavior is normal, Mood is normal, Patient is cooperative and pleasant 01:44 Constitutional: The patient appears alert, awake, uncomfortable. 01:44 Musculoskeletal/extremity: right lateral proximal femur ttp, compartments are soft, full dorsalis pulse, NVI. 01:44 Skin: Appearance: Color: normal in color. 01:44 Neuro: Orientation: is normal, Mentation: is normal, Memory: is normal. 01:44 Psych: Behavior/mood is pleasant, cooperative. Vital Signs: 01:22 BP 135 / 78; Pulse 77; Resp 18 S; Temp 97.8; Pulse Ox 100% on R/A; Pain 7/10; mg2 02:43 BP 125 / 78; Pulse 70; Resp 18; Temp 98; Pulse Ox 100% on R/A; Pain 2/10; mg2 MDM: 01:27 Patient medically screened. [facility] 02:22 Data reviewed: vital signs, nurses notes. Counseling: I had a detailed discussion with martha the patient and/or guardian regarding: the historical points, exam findings, and any diagnostic results supporting the discharge/admit diagnosis, radiology results, the need for outpatient follow up, to return to the emergency department if symptoms worsen or persist or if there are any questions or concerns that arise at home. ED course: Patient is alert and non toxic in appearance. Advised to follow up with pain management. Patient is otherwise given strict return precautions. Patient understood and agrees with the plan of care. . Administered Medications: 01:47 Drug: Dilaudid 1 mg Route: IM; Site: left gluteus; mg2 02:43 Follow up: Response: No adverse reaction; Marked relief of symptoms; RASS: Alert and mg2 Calm (0) 01:47 Drug: Zofran (Ondansetron) 4 mg Route: PO; mg2 02:43 Follow up: Response: No adverse reaction; Marked relief of symptoms mg2 Disposition: 04:25 Co-signature as Attending Physician, Albert Tong MD. [email or web address] Disposition: 10/09/19 02:23 Discharged to Home. Impression: Pain in right hip. - Condition is Stable. - Discharge Instructions: Hip Pain. - Prescriptions for Ultracet 37.5- 325 mg Oral Tablet - take 1 tablet by ORAL route every 6 hours - for up to 5 days; do not exceed 8 tablets per day.; 12 tablet. - Medication Reconciliation Form, Thank You Letter, Antibiotic Education, Prescription Opioid Use form. - Follow up: Private Physician; When: 2 - 3 days; Reason: Recheck today's complaints, Continuance of care, Re-evaluation by your physician. Signatures: Valdemar Calix RN RN Nico Ogden PA PA jmm Gardose, Michele, RN RN [facility] [place] Albert Tong MD MD [email or web address] Corrections: (The following items were deleted from the chart) 02:44 02:23 10/09/2019 02:23 Discharged to Home. Impression: Pain in right hip. Condition is mg2 Stable. Forms are Medication Reconciliation Form, Thank You Letter, Antibiotic Education, Prescription Opioid Use. Follow up: Private Physician; When: 2 - 3 days; Reason: Recheck today's complaints, Continuance of care, Re-evaluation by your physician. martha
--- NOTE | 2019-10-09 02:24 | ER ---
Nurse's Notes [facility] Name: Arianne Ambriz Age: 73 yrs Sex: Female : 1945 Arrival Date: 10/09/2019 Time: 01:12 Bed 15 Private MD: Diagnosis: Pain in right hip Presentation: 10/08 01:22 Onset of symptoms was October 09, 2019. Care prior to arrival: None. Transition of care: sg patient was not received from another setting of care. : Acuity: THADDEUS 4 sg 01:22 Chief complaint: Patient states: I fell back in July, and have been having some pain sg with this Right hip but it hasnt gotten this bad, I had a f/u with my ortho doctor and they did a hand held scan of some sort in the office and said everything was ok, but this pain is concerning, denies fall or trauma at this time, reports chronic back and hip pain as well as some cellulitis to the left lower leg but that has gotten a lot better. Coronavirus screen: Proceed with normal triage. Ebola Screen: Patient negative for fever greater than or equal to 101.5 degrees Fahrenheit, and additional compatible Ebola Virus Disease symptoms Patient denies exposure to infectious person. Patient denies travel to an Ebola-affected area in the 21 days before illness onset. No symptoms or risks identified at this time. Initial Sepsis Screen: Does the patient meet any 2 criteria? No. Patient's initial sepsis screen is negative. Does the patient have a suspected source of infection? No. Patient's initial sepsis screen is negative. Risk Assessment: Do you want to hurt yourself or someone else? Patient reports no desire to harm self or others. 01:22 Method Of Arrival: Wheelchair sg Historical: - Allergies: 01:22 butorphanol; sg 01:22 Ciprofloxacin (DIZZINESS); sg 01:22 Erythromycin; sg 01:22 GABAPENTIN; sg 01:22 Levaquin; sg 01:22 Neurontin; sg 01:22 Stadol; (cardiac arrest); sg 01:22 TETRACYCLINES; sg - PMHx: 01:22 Arthritis; Back pain; William hip bursitis; Chronic pain; Complication of anesthesia; DVT; sg GERD; Hypertension; - PSHx: 01:22 back fractures x 3, shoulder/knee surgeries; sg - Immunization history:: Adult Immunizations up to date. - Social history:: Smoking status: Patient denies any tobacco usage or history of. Screenin:48 Abuse screen: Denies threats or abuse. Denies injuries from another. Nutritional mg2 screening: No deficits noted. Tuberculosis screening: No symptoms or risk factors identified. Fall Risk Gait- Weak (10 pts.). Assessment: 01:47 General: Appears in no apparent distress. comfortable, Behavior is calm, cooperative. mg2 Pain: Complains of pain in hip area. Neuro: Level of Consciousness is awake, alert, obeys commands, Oriented to person, place, time, situation. Cardiovascular: Capillary refill < 3 seconds Patient's skin is warm and dry. Respiratory: Airway is patent Respiratory effort is even, unlabored, Respiratory pattern is regular, symmetrical. GI: No signs and/or symptoms were reported involving the gastrointestinal system. : No signs and/or symptoms were reported regarding the genitourinary system. EENT: No signs and/or symptoms were reported regarding the EENT system. Derm: Skin is intact, is healthy with good turgor, Skin is pink, warm \T\ dry. normal. Musculoskeletal: Circulation, motion, and sensation intact. Capillary refill < 3 seconds, Reports pain in hip. Vital Signs: 01:22 BP 135 / 78; Pulse 77; Resp 18 S; Temp 97.8; Pulse Ox 100% on R/A; Pain 7/10; mg2 02:43 BP 125 / 78; Pulse 70; Resp 18; Temp 98; Pulse Ox 100% on R/A; Pain 2/10; mg2 ED Course: 01:12 Patient arrived in ED. ds1 01:22 Triage completed. sg 01:22 Arm band placed on. sg 01:27 Nico Ogden PA is PHCP. jmm 01:27 Albert Tong MD is Attending Physician. jmm 01:35 Jose J Abernathy RN is Primary Nurse. mg2 01:48 Patient has correct armband on for positive identification. mg2 01:48 No provider procedures requiring assistance completed. Patient did not have IV access mg2 during this emergency room visit. Administered Medications: 01:47 Drug: Dilaudid 1 mg Route: IM; Site: left gluteus; mg2 02:43 Follow up: Response: No adverse reaction; Marked relief of symptoms; RASS: Alert and mg2 Calm (0) 01:47 Drug: Zofran (Ondansetron) 4 mg Route: PO; mg2 02:43 Follow up: Response: No adverse reaction; Marked relief of symptoms mg2 Outcome: 02:23 Discharge ordered by . martha 02:44 Discharged to home via wheelchair. mg2 02:44 Condition: stable 02:44 Discharge instructions given to patient, Instructed on discharge instructions, the need for admit, medication usage, Demonstrated understanding of instructions, follow-up care, medications, Prescriptions given X 1. 02:44 Patient left the ED. mg2 Signatures: Valdemar Calix, RN RN sg Nico Ogden PA PA jmm Sanford, Demi ds1 Jose J Abernathy RN RN mg2 Corrections: (The following items were deleted from the chart) 02:44 01:22 Pulse 77bpm; Resp 18bpm; Spontaneous; Pulse Ox 100% RA; Temp 97.8F; Pain 7/10; sg mg2
[2019-10-09 02:48] VITALS: O2SAT 100
[2019-10-09 02:50] VITALS: BP 125/78; TEMP 98
== END 2019-10-09 02:44 | disposition home or self-care (01) ==
LOC: ER 01:11
DX: M25.551 Pain in right hip (principal); I10 Essential (primary) hypertension; Z88.1 Allergy status to other antibiotic agents; Z88.3 Allergy status to other anti-infective agents; Z88.8 Allergy status to other drugs, medicaments and biological substances
CPT/HCPCS: 96372; 99283; J1170

== ENCOUNTER 2019-11-23 03:33 | Emergency (ER) | payer OTHER, BC ==
--- OUTSIDE RECORDS SUMMARY | 2019-11-23 03:38 | XMS REPORT | Clinical Summary ---
:1945 Author Organization [facility] Address [address] [place] [address] Care Team Providers Name Role Phone Sven [...] Not on file Results Not on fileafter 11/22/2018 Insurance Payer Benefit Plan / Subscriber ID Type Phone Address Group MEDICARE MEDICARE A B xxxxxxxxxx Medicare BLUE CROSS/BLUE BC[place] INDEMNITY [place] xxxxxxxxxxxx PPO [address] [facility] [place] [address] (Home) [place] [address] Advance Directives For more information, please contact:[facility] [place], [place] [phone] Code Status Date Activated Date Inactivated Comments Full Code 11/29/2016 5:49 AM 12/09/2016 3:06 PM This code status was determined by: Patient Code ONE 06/10/2013 12:15 PM 06/10/2013 3:46 PM All possib le means of support, including: cardi ac massage, mechanical ventilation, and defibrillation will be used to suppo rt life.
--- OUTSIDE RECORDS SUMMARY | 2019-11-23 03:38 | XMS REPORT | Clinical Summary ---
:1945 Author Organization [facility] Address [address] [place] [address] Care Team Providers Name Role Phone Asked, [...] 2 08/26/19 Active tablet a day. 18 oxyCODone Take 1 tablet (20 120 tablet 0 11/10/ A ctive (ROXICODONE) 20 MG mg total) by mouth 20 02 0 tabletIndications: 4 (four) times a chronic pain day for 30 days .chronic pain. Max Daily Amount: 80 mg oxyCODone Take 1 tablet (20 12 tablet 0 11/08/19 Ac tive (ROXICODONE) 20 MG mg total) by mouth 20 tabletIndications: 4 (four) times a chronic pain day for 3 days .chronic pain. Max Daily Amount: 80 mg tiZANidine TAKE 1 TABLET(4 90 tablet 1 11/11/19 Act nikhil (ZANAFLEX) 4 MG MG) BY MOUTH EVERY 20 tablet 8 HOURS NEEDED FOR MUSCLE SPASMS atenolol 25 mg daily. 1 02/21/20 Discont inued (TENORMIN) 50 MG 16 020 (St op Taking at tablet Discharge) alendronate 0 01/10/20 Disconti nued (FOSAMAX) 70 MG 17 020 (Med List tablet Cleanup) esomeprazole Take 40 mg by 0 Dis continued (NexIUM) 40 MG mouth daily before 020 capsule breakfast. NARCAN 4 UMU REP ALN 0 10/01/19 Disconti nued mg/actuation 020 (Stop T aking at spray,non-aerosol Di scharge) spironolactone spironolactone 25 0 Discontinued (ALDACTONE) 25 MG mg tablet 020 (S top Taking at tablet Discharge) hydromorPHONE TK 1 T PO Q 4 [...] 1 tablet (4 90 tablet 1 07/19/19 Di scontinued (ZANAFLEX) 4 MG mg total) by mouth 20 020 (Reorder) tablet every 8 (eight) hours as needed for muscle spasms. oxyCODone Take 1 tablet (20 120 tablet 0 08/26/19 D iscontinued (ROXICODONE) 20 MG mg total) [...] pain. oxyCODone Take 30 mg by 0 Discon tinued (OxyCONTIN) 30 MG mouth every 12 020 (Med List tablet extended (twelve) hours. Cleanup) release 12 hr morPHINE Take 30 mg by 0 Discon tinued immediate-release mouth every 4 020 30 MG (four) hours as tabletIndications: needed for severe acute pain pain .acute pain. fluticasone 1 spray by Each 0 Di scontinued propionate Nare route 2 (two) 020 (Med List (FLONASE) 50 times a day. Julita nup) mcg/actuation nasal spray pregabalin Take 1 capsule (75 90 capsule 0 08/27/19 (LYRICA) 75 MG mg total) by mouth 20 020 capsule 3 (three) times a day for 30 days. traMADoL (ULTRAM) Take 1 tablet (50 15 tablet 0 08/27/1905/30 50 mg mg total) by mouth 20 020 tabletIndications: 3 (three) times a acute pain day for 5 days .acute pain. oxyCODone Take 1 tablet (20 120 tablet 0 09/13/19 D iscontinued (ROXICODONE) 20 MG mg total) by mouth 20 02 0 (Reorder) tabletIndications: 4 (four) times a chronic pain day for 30 days .chronic pain. tiZANidine Take 1 tablet (4 90 tablet 1 09/16/19 Di scontinued (ZANAFLEX) 4 MG mg total) by mouth 20 020 tablet every 8 (eight) hours as needed for muscle spasms. oxyCODone Take 1 tablet (20 120 tablet 0 10/12/19 D iscontinued (ROXICODONE) 20 MG mg total) [...] Encounters Date Type Specialty Care Team Description 11/11/2019 Refill Physical Medicine Ananya, and Rehabilitation John Martin MD 11/08/2019 Refill Physical Medicine Oralia Crawley, Cervicalg ia (Primary Dx); and Rehabilitation RN Other chr onic pain; Lumbar radicula r pain; Chronic cervica l radiculopathy 10/13/2019 Abstract Orthopedic Surgery Matilda Bailon MA 10/08/2019 Office Visit Orthopedic Surgery Rajeev Chacon, Closed displaced intertrochanter ic fracture of rig ht femur, initial encounter (HCC) (Primary Dx) 10/08/2019 Orders Only Orthopedic Surgery Smith Navarrete di splaced KEMI Snyder intertrochanter ic fracture of rig ht femur, initial encounter (HCC) (Primary Dx) 10/07/2019 Travel 10/04/2019 Travel 10/04/2019 Orders Only Orthopedic Surgery Smith Bailon di splaced KEMI Grey intertrochanter ic fracture of rig ht femur, [...] Travel 09/13/2019 Travel 09/13/2019 Refill Physical Medicine [facility], Kamran applications specialist rema pain and Rehabilitation KEMI Jalloh 09/03/2019 Travel 09/01/2019 Telephone Physical Medicine Oralia Crawley, and Rehabilitation RN 08/20/2019 Anesthesia Event Orthopedic Surgery Jill, MD Airam Bledsoe Faiz Syed, MD 08/20/2019 Surgery Orthopedic Surgery Ines, Rajeev Rene, [facility] EDULLARY MD EASON, FEMUR 08/20/2019 Hospital Encounter Orthopedic Surgery Amna Vasquez sed displaced intertrochanteric fracture of right femur, initial encounter (HCC) (Primary Dx); - Lilly [place] MD Lumbar radicular pain 08/27/2019 Crissy Delacruz MD 08/20/2019 Travel 08/19/2019 Intake Access 07/23/2019 Refill Physical Medicine Oralia Crawley, Kamran chr onic pain and Rehabilitation RN (Primary Dx) 07/19/2019 Telemedicine Physical Medicine Ananya, Lumbar dis c disease (Primary Dx); and [...] Travel 07/14/2019 Travel 06/03/2019 Refill Physical Medicine Afshin, and Rehabilitation Elizabeth Huntley RN 05/25/2019 Office Visit Physical Medicine Ananya, Lumbar rad icular pain (Primary Dx); and [...] KEMI Jalloh 04/19/2019 Office Visit Physical Medicine Ananya, Chronic pr escription opiate use (Primary Dx); and [...] unspecified spinal region 04/05/2019 Refill Physical Medicine Lexis Sarabia ce rvical radiculopathy (Primary Dx); and Rehabilitation KEMI Jalloh Lumbar d isc disease 04/01/2019 Telephone Physical Medicine [facility] and Rehabilitation KEMI Jalloh 03/18/2019 Refill Physical Medicine [facility] and Marquise Jalloh MA 03/17/2019 Telephone Physical Medicine Lida Sarabia MA 03/16/2019 Office Visit Physical Medicine Myra Hare (Primary Dx); and Rehabilitation John Martin MD [...] proximal vein of left lower extremity (HCC) after 11/22/2018 Family History Medical History Relation Name Comments [...] Physical Medicine and John Hare , Rehabilitation [address] [facility] [address] [place], [place] [address] [phone] Health Maintenance Due Date Last Done Comments COLONOSCOPY SCREENING 10/27/1993 SHINGLES VACCINES (#1) 10/27/1993 65+ PNEUMOCOCCAL VACCINE (1 of 2 - PCV13) 10/27/2008 INFLUENZA VACCINE 12/30/2019 04/21/2017 Implants Implanted Type Area Senior Quality Technician Device Shelf Model / Identifier Expiration Serial / Lot Date Hfn Rh 130 Deg 11mm X 360mm - [id number] IPM IMPLANT Right: [employer] 12/26/2028 [id number] / Implanted: Qty: 1 on 08/20/2019 by Rajeev Chacon MD at [facility] Hip / [id number] Hfn A/R Screw 90mm - [id number] IPM IMPLANT Right: [employer] 01/20/2028 [id number] / Implanted: Qty: 1 on 08/20/2019 by Rajeev Chacon MD at [facility] DEV[employer] Hip / [id number] Cortical Bone Scr [id number] - [id number] IPM IMPLANT Right: [employer] [id number] / Implanted: Qty: 1 on 08/20/2019 by Rajeev Chacon MD at [facility] Hip / Hfn Lag Screw 10mm X 105mm - [id number] IPM IMPLANT Right: ANGIE I NC [id number] / Implanted: Qty: 1 on 08/20/2019 by Rajeev Chacon MD at [facility] DEVICES Hip / Procedures Procedure Name Priority Date/Time Associated Diagnosis Comme nts XR FEMUR 2 VW RIGHT Routine 10/08/2019 12:33 Closed displaced Results for PM CDT intertrochanteric this proce dure fracture of right femur, are in the initial encounter (HCC) resu lts section. ESTIMATED GFR Routine 08/27/2019 4:29 Results fo [...] Routine 04/19/2019 DRUG SCREEN Routine 03/16/2019 after 11/22/2018 Results XR Femur 2 Vw Right (10/08/2019 12:33 PM CDT) Specimen Narrative Performed At This result has an attachment that is no t available. X-rays of the right femur, 2 views, demonstrate Well aligned right HM [facility] intertrochanteric femur fracture with orthopedic hardw are. The fracture reduction and alignment appear to be satisfactory Performing Organization Address City/State/Zipcode Phone Number [facility] [address] [place] [address] Estimated GFR (08/27/2019 4:29 AM CDT)Only the most recent of10 resultswithin the time period is included. Estimated GFR >=90 mL/min/1.73 [facility] Comment: m2 HOSPITAL Catergory Units Interpretation G1 [...] published in 2014. Specimen Performing Organization Address City/[facility]/Zipcode Phone Number [facility] [address], [place] [address] [facility] MEDICINE [address] [address] CBC with platelet and differential (08/27/2019 4:29 AM CDT)Only the most recent of9 resultswithin the time period is included. WBC 6.85 4.50 - 11.00 [facility] k/uL HOSPITAL RBC 2.94 (L) 4.20 - 5.50 [facility] m/uL [facility] HGB 7.6 (L) 12.0 - 16.0 [facility]/dL [facility] HCT 24.2 (L) 37.0 - 47.0 % [facility] MCV 82.3 82.0 - 100.0 [facility] MCH 25.9 (L) 27.0 - 34.0 pg [facility] MCHC 31.4 31.0 - 37.0 [facility] RDW - SD 43.9 37.0 - 55.0 fL [facility] MPV 10.5 8.8 - 13.2 fL [facility] Platelet count 306 150 - 400 k/uL [facility] Nucleated RBC 0.00 /100 WBC [facility] Neutrophils 66.3 39.0 - 69.0 % [facility] Lymphocytes 17.2 (L) 25.0 - 45.0 % [facility] Monocytes 11.8 (H) 0.0 - 10.0 % [facility] Eosinophils 3.2 0.0 - 5.0 % [facility] Basophils 0.6 0.0 - 1.0 % [facility] Immature granulocytes 0.9Comment: 0.0 - 1.0 % [facility] "Immature HOSPITAL granulocytes" (promyelocytes , myelocytes, metamyelocytes ) Specimen Blood Performing Organization Address City/[facility] Phone Number [facility] [address] [place] [address] Phosphorus level (08/27/2019 4:29 AM CDT)Only the most recent of3 resultswithin the time period is included. Pathologist Sig [facility] Phosphorus 4.3 2.4 - 4.5 mg/dL [facility] Specimen Blood Performing Organization Address [facility] Phone Number [facility] [address] [place] [address] [place] [address] Magnesium level (08/27/2019 4:29 AM CDT)Only the most recent of3 resultswithin the time period is included. [facility] Magnesium 1.9 1.6 - 2.4 mg/dL [facility] L Specimen Blood Performing Organization Address [facility] Phone Number [facility] [address] [place] [address] Basic metabolic panel (08/27/2019 4:29 AM CDT)Only the most recent of8 results within the time period is included. [facility] Sodium 138 135 - 148 mEq/L [facility] Potassium 3.8 3.5 - 5.0 mEq/L [facility] Chloride 102 98 - 112 mEq/L [facility] CO2 26 24 - 31 mEq/L [facility] Anion gap 10@ANIO 7 - 15 mEq/L [facility] BUN 7 (L) 8 - 23 mg/dL [facility] Creatinine 0.47 (L) 0.50 - 0.90 mg/dL [facility] Glucose 91 65 - 99 mg/dL [facility] Calcium 9.1 8.8 - 10.2 mg/dL [facility] Specimen Blood Performing Organization Address City/[facility] Phone Number [facility] [address] [place] [phone] [facility] [address] [address] Respiratory pathogen panel (08/26/2019 2:30 PM CDT) Pathologist [facility] Adenovirus PCR Not Detected [place] Comment: H[facility]UISM Specimen Information HOSPITAL Specimen Source: Nares Specimen Site: Left Coronavirus HKU1 PCR Not Detected [facility] Coronavirus NL63 PCR Not Detected [facility] Coronavirus 229E PCR Not Detected [facility] Coronavirus OC43 PCR Not Detected [facility] Human metapneumovirus Not Detected [facility] Human Not Detected [place] rhinovirus/enterovirus [facility] Influenza A PCR Not Detected [facility] Influenza A/H1 PCR Not Reported [facility] Influenza A/H3 PCR Not Reported [facility] Influenza A/H1-2009 PCR Not Reported [facility] Influenza B PCR Not Detected [facility] Parainfluenza virus 1 Not Detected [facility] Parainfluenza virus 2 Not Detected [facility] Parainfluenza virus 3 Not Detected [facility] Parainfluenza virus 4 Not Detected [facility] Respiratory syncytial Not Detected [place] virus PCR [facility] Bordetella pertussis Not Detected [facility] Bordetella Not Detected [place] parapertussis PCR [facility] Chlamydia pneumoniae Not Detected [facility] Mycoplasma pneumoniae Not Detected [facility] Influenza A no sub type Not Reported [facility] Specimen Nares - Left Performing Organization Address City/[facility] Phone Number [facility] [address] [place] [phone] [facility] [address] [address] Influenza antigen test, reflex negative to RPP (08/26/2019 2:30 PM CDT) Pathologist [facility] Influenza antigen Negative for Influenza A/B antigen. [facility] Comment: HOSPITAL Specimen Information Specimen Source: Nares Specimen Site: Left Specimen Nares - Left Performing Organization Address City/State/[facility] Phone Number [facility] [address], [place] [address] [place] [address] COVID-19 qualitative PCR (08/26/2019 8:50 AM CDT) Interpretation Negative results do not prec lude 2019-nCoV infection and should not be used as the sole basis for treatment or other patient management decisions. Negative results must be combined with clinical observations, patient history, and epidemiological [place] information. [facility] COVID-19 qualitative Not-Detected Not-Detecte [place] PCR result d [facility] COVID-19 qualitative See link below for [place] PCR PDF Lab HINDUISM ReportComment: Case HOSPITAL Number: [id number] Specimen Narrative Performed At Report was revised to add the Methodolog y [facility] METHODOLOGY: This assay utilizes reagents for nucleic acid amplification and real-time polymerase chain reaction. Performing Organization Address City/State/Zipcode Phone Number [facility] [address] [place] [address] XR Chest 1 Vw Portable (08/25/2019 6:24 [...] str uctures accounting for differences in technique. [id number] Procedure Note Hm Interface, Radiology Results Incoming - 08/25/2019 7:19 [...] osseous structures accounting for differences in technique. [id number] Performing Organization Address [facility]/Zipcode Phone Number [address] [address] Blood culture, aerobic & anaerobic (08/25/2019 12:15 PM CDT)Only the most recent of2 resultswithin the time period is included. Blood culture No growth after 5 days of incubation. [facility] isolate Comment: HOSPITAL Specimen Information Specimen Source: Blood Specimen Site: Antecubital Left Specimen Blood Performing Organization Address [facility]/Zipcode Phone Number [facility] [address] [place] [address] [place] [phone] Partial thromboplastin time, activated (08/25/2019 5:30 AM CDT)Only the most recent of2 resultswithin the time period is included. PTT 35.1 23.0 - 36.0 [facility] Comment: [facility] PTT therapeutic range for unfractionated heparin is 61.0-112.0 seconds which corresponds to Anti-Xa 0.3-0.7 U/ml. Specimen Blood Performing Organization Address [facility] Phone Number [facility] [address] [place] [address] [place] [phone] Prothrombin time with INR (08/25/2019 5:30 AM CDT)Only the most recent of2 resultswithin the time period is included. Prothrombin time 15.7 (H) 11.5 - 14.5 [facility] INR 1.2 [place] Comment: HINDUISM The International Normalized Ratio (INR) is a therapeu [facility] monitoring tool for patients who are stable on oral anticoagulant therapy. An INR of 2.0-3.0 is suggested for deep vein thrombosis/pulmonary embolism. Specimen Blood Performing Organization Address [facility]/Zipcode Phone Number [facility] [address] [place] [address] [place] [address] Urinalysis screen and microscopy, with reflex to culture (08/24/2019 3:05 PM CDT)Only the most recent of2 resultswithin the time period is included. Specimen site Catheterized [facility] Color, UA Yellow [facility] Appearance, UA Clear [facility] Specific gravity, UA 1.009 1.001 - 1.035 [facility] pH, UA 7.0 5.0 - 8.5 [facility] Protein, UA Negative Negative [facility] Glucose, UA Negative Negative [facility] Ketones, UA Negative Negative [facility] Bilirubin, UA Negative Negative [facility] Blood, UA Negative Negative [facility] Nitrite, UA Negative Negative [facility] Urobilinogen, UA 4.0 (A) <2.0 [facility] Leukocyte esterase, Negative Negative [facility] Epithelial cells, UA 1 /HPF [facility] WBC, UA 1 0 - 4 /HPF [facility] RBC, UA <1 0 - 5 /HPF [facility] Bacteria, UA None seen None seen [facility] Yeast, UA None seen [facility] Yeast with None seen [facility] pseudohyphae, [facility] Specimen Urine Performing Organization Address [facility] Phone Number [facility] [address] [place] [address] [address] Urine culture (08/24/2019 3:05 PM CDT)Only the most recent of2 resultswithin the time period is included. Pathologist [facility] Urine culture SEE COMMENTComment: [facility] Bacteriuria screen HOSPITAL negative. Specimen Performing Organization Address City/[facility] Phone Number [facility] [address] [place] [address] [phone] [address] Hemoglobin & hematocrit (08/22/2019 11:18 PM CDT)Only the most recent of2 resultswithin the time period is included. Pathologist [facility] HGB 8.0 (L) 12.0 - 16.0 g/dL [facility] HCT 25.3 (L) 37.0 - 47.0 % [facility] Specimen Blood Performing Organization Address City/State/Zipcode Phone Number [facility] [address], [place] [address] GENOMIC MEDICINE [facility] [address] [place] [address] CT Pelvis Wo Contrast (08/22/2019 9:42 PM CDT) Specimen Narrative Performed At EXAMINATION: CT PELVIS WO CONTRAST [facility] CLINICAL HISTORY: S p R hip [...] 3-D reformats created by a dedicate d lead neurodiagnostic technologist at an independent workstation were also submitted for interpretation. IMPRESSION: 1.Instrumented right femoral shaft fracture partially visualized. Expected postoperative findings including operative be d gas. Along the lateral thigh soft tissues there is a small high densi ty fluid collection measuring 7 x 6.0 x 2.4 cm co mpatible with a posttraumatic hematoma. 2. Otherwise normal alignment of the pelvis without ac pauma fracture, or muscle injury. 3. No acute intrapelvic process. No bowel obstruction, pelvic mass, free pelvic fluid or significant lymphadenopa thy. [id number] Procedure Note Hm Interface, Radiology Results Incoming - 08/22/2019 9:56 [...] interpreted. 3-D reformats created by a dedicated lead neurodiagnostic technologist at an independent workstation were also [...] mass, free pelvic fluid or significant lymphadenopathy. [id number] Performing Organization Address City/[facility]/Zipcode Phone Number [facility] [address] [place] [address] Sodium level, urine, random (08/22/2019 2:00 PM CDT) Pathologist Sig nature Sodium, urine, random 49 mEq/L [facility] Specimen Urine Performing Organization Address City/[facility] Phone Number [facility] [address] [place] [address] [phone] [address] Osmolality, urine (08/22/2019 2:00 PM CDT) Pathologist Sig nature Osmolality, urine 510 50 - 1,400 mOsm/kg [facility] Specimen Urine Performing Organization Address [facility] Phone Number [facility] [address] [place] [address] [phone] [address] ECG 12 lead (08/21/2019 11:27 AM CDT)Only the most recent of2 resultswithin the time period is included. Pathologist Sig nature Ventricular rate 109 [facility] Atrial rate 109 [facility] [place] interval 140 [facility] QRSD interval 72 [...] is no t available. Performing Organization Address [facility] Phone Number [facility] [address] [place] [phone] [place] > I Hour (08/20/2019 6:39 [...] Organization Address City/State/Zipcode Phone Number [facility] [address] [place] [address] Airway (08/20/2019 5:02 PM CDT) Narrative Performed [...] bodies are present . Performing Organization Address [facility] Phone Number [facility] [address] [place] [address] XR Pelvis 1 Or 2 Vw (08/20/2019 [...] fracture right femur [id number] Performing Organization Address [facility]/Zipcode Phone Number [facility] [address] [place] [address] XR Wrist 3+ Vw Left (08/20/2019 10:15 [...] and ulna well-maintained [id number] Performing Organization Address City/[facility]/Zipcode Phone Number [facility] [address] [place] [address] Comprehensive metabolic panel (08/20/2019 7:42 AM CDT)Only the most recent of2 resultswithin the time period is included. Sodium 134 (L) 135 - 148 [facility] mEq/L [facility] Potassium 4.2 3.5 - 5.0 [facility] mEq/L [facility] Chloride 96 (L) 98 - 112 [facility] mEq/L [facility] CO2 23 (L) 24 - 31 mEq/L [facility] Anion gap 15@ANIO 7 - 15 mEq/L [facility] BUN 13 8 - 23 mg/dL [facility] Creatinine 0.64 0.50 - 0.90 [facility] mg/dL [facility] Glucose 115 (H) 65 - 99 mg/dL [facility] Calcium 9.6 8.8 - 10.2 [facility] mg/dL [facility] Protein 7.5 6.3 - 8.3 [facility] Comment: g/dL [facility] [place] 4.6-7.0 g/dL 1 week 4.4-7.6 g/dL 7 months-1year 5.1-7.3 g/dL 1-2 years 5.6-7.5 g/dL >3 years 6.0-8.0 g/dL 18-150 6.3-8.3 g/dL Albumin 3.5 3.5 - 5.0 [facility] g/dL [facility] A/G ratio 0.9 0.7 - 3.8 [facility] Alkaline phosphatase 41 35 - 104 U/L [facility] AST 39 (H) 10 - 35 U/L [facility] ALT 22 5 - 50 U/L [facility] Total bilirubin 1.2 0.0 - 1.2 [facility] mg/dL HOSPITAL Specimen Blood Performing Organization Address City/[facility]/Zipcode Phone Number [facility] [address] [place] [address] [phone] [id number] [place] [address] Prepare RBC (08/20/2019 7:35 AM CDT) Product name Apheresis [facility] [place] ACDA>-3 LR [facility] Unit number [id number] [facility] Product code [id number] [facility] Dispense status Returned to BB not [place] transfused [facility] Blood expiration date [facility] Blood type code 5100 [facility] Blood type O POSITIVE [facility] Compatibility Compatible [facility] Product name Red Blood Cells [place] -1, Leukored [facility] Unit number [id number] [facility] Product code [id number] [facility] Dispense status Returned to BB not [facility] Blood expiration date [facility] Blood type code 5100 [facility] Blood type O POSITIVE [facility] Compatibility Compatible [facility] Specimen Performing Organization Address City/State/Zipcode Phone Number [facility] [address] [place] [address] [phone] [address] Type and screen (08/20/2019 7:35 AM CDT) Pathologist Sig nature ABO grouping O [facility] Rh type POS [facility] Antibody screen (gel) NEG [facility] Specimen Blood Performing Organization Address City/State/Zipcode Phone Number [facility] [address] [place], [place] [phone] [address] [address] Hemoglobin A1c (08/20/2019 4:50 AM CDT) Hemoglobin A1C 5.4 4.0 - 5.6 % [facility] Comment: HOSPITAL HbA1c cutoffs for diagnosing diabetes: [...] Blood Performing Organization Address City/State/Zipcode Phone Number [facility] [address] [place], [place] [address] [address] Lipid panel (08/20/2019 4:50 AM CDT) Cholesterol 166 <200 mg/dL [facility] Triglycerides 57 <150 mg/dL [facility] HDL cholesterol 89 >40 mg/dL [facility] LDL cholesterol 80Comment: Result <100 mg/dL [place] obtained by direct [facility] LDL measurement [facility] Comment: [place] Total Cholesterol (mg/dL) HOSPIT AL <200 Desirable [...] (>=200 mg/dL) Specimen Blood Performing Organization Address City/State/Zipcode Phone Number [facility] [address] [place], [place] [address] [facility] [address] [place] [phone] XR Upper Extremity External Study (08/19/2019 10:25 PM CDT) Specimen Narrative Performed At This exam was not acquired at a Method[facility] t facility and has not been [facility] interpreted by a Congregational Provider. T he exam was imported into our imaging system. Performing Organization Address City/State/Zipcode Phone Number [facility] [address] [place] [address] CT Head External Study (08/19/2019 10:17 PM CDT) Specimen Narrative Performed At This exam was not acquired at a Methodis t facility and has not been [facility] interpreted by a Congregational Provider. T he exam was imported into our imaging system. Performing Organization Address City/State/Zipcode Phone Number [facility] [address] [place] [address] Drug Screen (04/19/2019)Only the most recent of2 resultswithin the time period is included. Narrative Performed At This result has an attachment that is no t available. after 11/22/2018 Insurance Payer Benefit Plan / Subscriber ID Effective Phone Address T ype Group Dates MEDICARE MEDICARE PART A xxxxxxxxxxx 2008-[place], [place] Medicare AND B ent BCBS COMMERCIAL BCBS MEDICARE xxxxxxxxxxxx 2008-[facility] Commercial SUPPLEMENT ent Advance Directives For more information, please contact: [phone] Type Date Recorded Patient Tool Liaison Explanati on Advance Directives, Living Will 09/06/2016 12:10 PM and Medical Power of [employer] Practitioner Advance Directives, Living Will 08/31/2019 11:17 AM POA 10/28/14 and Medical Power of [employer] Practitioner
--- OUTSIDE RECORDS SUMMARY | 2019-11-23 03:40 | XMS REPORT ---
:1945 Author Organization [employer] Care Team Providers Name Role Phone Germain [facility] Provider Role Unavailable Allergies, Adverse [...] Active Problem Pruritic dermatitis L29.9 Active Assessment Medicare annual wellness visit, Z00.00 Active subsequent Problem Venous insufficiency I87.2 Active Problem Iron [...] D18.01 Active Problem Allergic T78.40XA Active Medications Medication Code Code Instructions Start End Status Dosage System Date Date Spironolactone ND 38545347827 25 MG Orally Active 1 tablet Neomycin-Polymyxi ND 11241664007 3.5-49674-5 Mar 09, Active 4 drops into n-HC Otic Three 2019 affected ear times a day Pepto-Bismol ND 26041497011 524 MG/30ML Active 30 ml as Orally PRN needed Prolia ND 43304458673 60 MG/ML Active 60 mg Subcutaneous every 6 months Calcium NDC 0 200 MG Orally Active 1 tablet Once a day Tizanidine HCl ND 69005759670 4 MG Oral Active TK 1 T PO QD PRN Meclizine HCl ND 72029397406 25 MG Orally Mary Ann Active 1 tablet as Once a day 23, needed 2018 Zanaflex ND 95915416751 4 MG Orally Active 1 table t as Three times a needed day Oxycodone HCl ND 24502184329 15 MG Orally Active 1 tablet as every 6 hrs needed Carafate ND 98257589628 1 GM Orally Active 1 TABLE T 3-4 TIMES PER DAY Mupirocin [facility] 57805483960 2 % Externally Active 1 a pplication Three times a to affecte d day area Vitamin D-3 [facility] 16153394300 5000 UNIT Active 1 tabl et Orally Once a day Nexium ND 94329791091 40 MG Orally Active 1 capsu le Once a day Results No Known Results Summary Purpose eClinicalWorks Submission
--- OUTSIDE RECORDS SUMMARY | 2019-11-23 03:40 | XMS REPORT | Continuity of Care Document ---
:1945 Author Organization [facility] t Address [address] [place] [address] Care Team Providers Name Role Phone Sven Johnson MD Primary Care Physician Elisa ALVAREZ, H. Attending Clinician King RICO Attending Clinician Unavailable Uvaldo MCMULLEN Attending Clinician Unavailable Rene Mota MD Attending Clinician Landon MCMULLEN Attending Clinician Unavailable Cornell MCMULLEN Attending Clinician Unavailable Annette Vasuqez MD Attending Clinician Deysi Delacruz MD Attending Clinician Lobo Melchor MD Attending Clinician Brock Alegria MD Attending Clinician Afshin GÓMEZ, T Attending Clinician Unavailable RAEANN STEWARD Attending Clinician Unavailable NATALIE Admitting Clinician Unavailable RAEANN STEWARD Admitting Clinician Unavailable Payers Payer Name Policy Policy Number Effective Expiration Source Type Date Date MEDICAREMEDICARE PART xxxxxxxxxxx 2008 Regan Herrera AND 00:00:00 Christian B[place]/03/2008[place]xxx 2008 Faina ston MEDICARE 00:00:00 Christian SUPPLEMENTxxxxxxxxxxx [facility] Condition Condition Condition Status Onset Resolution Last Treating Co mments Source Name Details Category Date Date Treatment Clinician Date Other Other Disease Active [facility] chronic chronic 6-18 Methodi pain pain 00:00: st 00 Femur Femur Disease Active [facility] fracture fracture 5-26 Method i 00:00: st 00 Hyponatrem Hyponatrem Disease Active H uche ia ia 5-25 Methodi 00:00: st 00 Hip Hip Disease Active [facility] fracture fracture 5-22 Method i 00:00: st 00 Closed Closed Disease Active [facility] displaced displaced 5-22 Meth [place] intertroch intertroch 00:00: st anteric anteric 00 fracture fracture of right of right femur femur 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 6-14 Meth [place] [...] s - spine spine 00:00: Medical 00 [place] 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[facility] St homer coronel 11-29 [facility] malnutriti malnutriti 00:00: Me dical on, severe on, severe 00 Ce nter Acute low Acute low Disease Active [facility] back pain back pain 11-29 [facility] s - 00:00: Medical 00 [place] Physical Physical Disease Active [facility] deconditio deconditio 11-29 Stacy kes - rylee rylee 00:00: Medical 00 [place] Chest pain Chest pain Disease Active [facility] 11-29 [facility] - 00[facility] Medical 00 [place] Chronic Chronic Disease Active [facility] prescripti prescripti 8-10 Me thodi on opiate on opiate 00:00: st use use 00 Bilateral Bilateral Disease Active Faina ston hip hip 8-10 Methodi bursitis bursitis 00:00: st 00 Chronic Chronic Disease Active [facility] cervical cervical 7-11 Method i radiculopa radiculopa 00:00: st thy thy 00 Scoliosis Scoliosis Disease Active Faina ston 7 Methodi 00:00: st 00 Myalgia Myalgia Disease Active [facility] 7- Methodi 00:00: st 00 Back pain Back pain Disease Active Faina ston 3 Methodi 00:00: st 00 Cervicalgi Cervicalgi Disease Active [place] a a 3 Methodi 00:00: st 00 Lumbar Lumbar Disease Active [facility] radicular radicular 3- Meth [place] pain pain 00:00: st 00 Hip pain, Hip pain, Disease Active Faina ibarra chronic chronic 3 Methodi 00:00: st 00 Lumbar Lumbar Disease Active [facility] disc disc 3 Methodi disease disease 00:00: st 00 Venous Venous Problem Active [facility] insufficie insufficie [facility] lower both lower l extremitie [...] [facility] Chronic Chronic Problem Active [facility] back pain back pain [facility] - [facility] 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 [facility] Anorexia Anorexia Problem Active [facility] Sleep Sleep Problem Active [facility] apnea, apnea, [facility] - obstructiv obstructiv Me moria e e l [facility] ent Clinics Constipati Constipati Problem Active [facility] on on [facility] Iron Iron Problem Active [facility] deficiency deficiency Stacy ke - anemia, anemia, Memoria unspecifie unspecifie l d iron d iron [facility] deficiency deficiency en t anemia anemia Clinics type type Anemia due Anemia due Problem Active [facility] to other to other 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[facility] veins of veins of [facility] - bilateral bilateral Solitario manpreet lower lower l extremitie extremitie Ou tpati s with s with ent other other Clinics complicati complicati ons ons Medicare Medicare Diagnosis Active [facility] annual annual [facility] - wellness wellness Memori a visit, visit, l subsequent subsequent Ou tpati ent Clinics Hypertensi Hypertensi Disease Active Overview : [facility] on on bp [facility] d with Center medicatio n x 3 yrs Allergies, Adverse Reactions, Alerts Allergy Allergy Status Severity Reaction(s) Onset Inactive Treating Comm ents Source Name Type Date Date Clinician Ciproflo Propensi Active Other (See 2018-03 Ho aalnis gibson ty to Comments) 05-17 Methodi adverse 00:00: st reaction 00 s to drug Doxycycl Propensi Active Other (See 2015-03 Abdominal [facility] ine ty to Comments) - pain Methodi Hyclate adverse 00:00: st reaction 00 s to drug Erythrom Propensi Active Nausea Only 2015-03 [place] ycin ty to 2-12 Methodi adverse 00:00: st reaction 00 s to drug Gabapent Propensi Active Other (See 2015-03 disorient [facility] in ty to Comments) 2- ation Methodi adverse 00:00: st reaction 00 s to drug Glycopyr Propensi Active Nausea Only 2016- [place] rolate ty to 2-12 Methodi adverse 00:00: st reaction 00 s to drug Levoflox Propensi Active Nausea Only 2016- [place] acin ty to 2-12 Methodi adverse 00:00: st reaction 00 s to drug Moxiflox Propensi Active Nausea Only 2016-1 [place] acin ty to 2-12 Methodi [...] ation [facility] - nce 00:00: Medical 00 [place] Nabumeto Drug Active Nausea Only 2014-[address] [facility] ne Intolera 0-06 [facility] - nce 00:00: Medical 00 [place] Moxiflox Drug Active Nausea Only [facility] acin Intolera 3-13 [facility] - nce 00:00: Medical 00 [place] Tolterod Drug Active Nausea Only [facility] ine Intolera 3-13 [facility] - nce 00:00: Medical 00 [place] Doxycycl Drug Active Other (See Abdominal C HI [facility] ine Intolera Comments) 3-13 pain [facility] - Hyclate nce 00:00: Medical 00 [place] Erythrom Drug Active Nausea Only [facility] ycin Intolera 3-13 [facility] - nce 00:00: Medical 00 [place] Levoflox Drug Active Nausea Only [facility] acin Intolera 3-13 [facility] - nce 00:00: Medical 00 Center Glycopyr Drug Active Nausea Only 2013- [facility] rolate Intolera 3-13 [facility] - nce 00:00: Medical 00 Center Butorpha Drug Active Anaphylaxis 2013- [facility] nol Allergy 3-12 [facility] - Tartrate 00:00: Medical 00 [place] Adhesive Propensi Active Itching, 2009- Itching & [place] Tape-Jada ty to Swelling 8-20 swellingI Met hodi icones adverse 00:00: tching & st reaction 00 swelling s to drug Butorpha Propensi Active Anaphylaxis, "brings [facility] nol ty to Palpitations 8-20 on Meth [place] Tartrate adverse 00:00: cardiac st reaction 00 arrest" s to drug Clarithr Propensi Active Palpitations High [facility] omycin ty to 8-20 heart Methodi adverse 00:00: rate st reaction 00 s to drug Stadol Adverse Active anaphylaxis [facility] Reaction [facility] Neuronti Adverse Active anaphylaxis [facility] n Reaction [facility] Ciproflo Adverse Active Info Not [facility] xacin Reaction Available [facility] Family History Family Member Diagnosis Comments Start Date Stop Date Source Natural father Cancer [facility] Me thodist Natural mother Heart attack [facility] Christian Natural mother Hypertension [facility] Christian Natural mother Osteoporosis [facility] Christian Paternal grandfather Stroke [place] Christian Paternal grandmother Stroke [place] Natural sister Diabetes [facility] Me thodist Social History Social Habit Start Date Stop Date Quantity Comments Source History of tobacco Cigarette Smoker [facility] use Christian Sex Assigned At [facility] Christian Cigarettes smoked 2019-08-25 2019-08-25 [facility] current (pack per 00:00:00 00:00:00 Methodi ) - Reported Cigarette 2019-08-25 2019-08-25 [facility] pack-years 00:00:00 00:00:00 Christian Alcohol intake 2019-08-25 2019-08-25 Current [facility] 00:00:00 00:00:00 non-drinker of Christian alcohol (finding) Smoking Status Start Date Stop Date Source Former smoker 2019-08-25 00:00:00 2019-08-25 00:00:00 [facility] Christian Medications Ordered Filled Start Stop Current Ordering Indication Dosage Frequency Signature Comments Components Source Medication Medication Date Date Medication? Clinician (SIG) Name Name tiZANidine Yes TAKE 1 [place] (ZANAFLEX) 8-13 TABLET(4 Metho di 4 MG tablet 00:00: MG) BY st 00 MOUTH EVERY 8 HOURS NEEDED FOR MUSCLE SPASMS oxyCODone 2020- Yes chronic 20mg Q.25D Take 1 [place] (ROXICODONE 8-13 09-12 pain tablet (20 M ethodi ) 20 MG 00:00: 23:59 mg total) st tablet 00 :00 by mouth 4 (four) times a day for 30 days .chronic pain. Max Daily Amount: 80 mg oxyCODone 2020-0 Yes chronic 20mg Q.25D Take 1 [place] (ROXICODONE 8-10 pain tablet (20 Me thodi ) 20 MG 00:00: mg total) st tablet 00 by mouth 4 (four) times a day for 3 days .chronic pain. Max Daily Amount: 80 mg oxyCODone 2019-2019- No chronic 20mg Q.25D Take 1 [place] (ROXICODONE 7-14 08-10 pain tablet (20 M ethodi ) 20 [...] day for 30 days .chronic pain. tiZANidine 2019- No 4mg Q8H Take 1 [place] (ZANAFLEX) 6-18 08-13 tablet (4 Met hodi 4 MG tablet 00:00: 00:00 mg total) st 00 :00 by mouth every 8 (eight) hours as needed for muscle spasms. oxyCODone 2019- No chronic 20mg Q.25D Take 1 [place] (ROXICODONE 6-15 06-18 pain tablet (20 M ethodi ) 20 MG 00:00: 00:00 mg total) st tablet 00 :00 by mouth 4 (four) times a day for 30 days .chronic pain. spironolact 2019- No spironolac [facility] one 08-26 05-29 tone 25 mg Methodi (ALDACTONE) 20:46: 00:[address] 25 MG 34 :00 tablet pregabalin 2019- No 75mg Q.[id number] Take 1 Toney (LYRICA) 75 - 06-28 [id number] capsule Methodi MG capsule 00:00: 23:59 3D ([address] 00 :00 total) by mouth 3 (three) times a day for 30 days. traMADoL 2019- No acute pain 50mg Q.[id number] Take 1 [place] (ULTRAM) 50 29 06-03 [id number] tablet (50 Methodi mg tablet 00:00: 23:59 3D mg total) st 00 :00 by mouth 3 (three) times a day for 5 days .acute pain. oxyCODone 2019- No chronic 20mg Q.25D Take 1 [place] (ROXICODONE 08-25 06-15 pain tablet (20 M ethodi ) 20 MG 00:00: 00:00 mg total) st tablet 00 :00 by mouth 4 (four) times a day for 30 days .chronic pain. Max Daily Amount: 80 mg DULoxetine 2019- No duloxetine [facility] (CYMBALTA) 08-20 20 mg Methodi 20 MG 12:41: 00:00 capsule,de st capsule 53 :00 layed release lisinopril 2019- No lisinopril [facility] (PRINIVIL) 08-20 5 mg Methodi 5 mg tablet 12:41: 00:[address] 47 :00 fluticasone 2019- No 1{spray Q.5D 1 spray by Toney propionate 08-20 } Each Nare Met hodi (FLONASE) 12:41: 00:[address] 50 22 :00 (two) mcg/actuati times a on nasal day. spray esomeprazol No 40mg QD Take 40 mg Feng e (NexIUM) 08-20 by mouth Meth [place] 40 MG 12:41: 00:[address] capsule 07 :00 before breakfast. morPHINE 2019- No acute pain 30mg Q4H Take 30 mg Toney immediate-r 08-20 by mouth Met hodi elease 30 11:03: 00:[address] MG tablet 25 :00 (four) hours as needed for severe pain .acute pain. oxyCODone 2019- No 30mg Q.5D Take 30 mg [place] (OxyCONTIN) 08-20 by mouth Met hodi 30 MG 11:02: 00:[address] tablet 57 :00 (twelve) extended hours. release 12 hr oxyCODone 2019- No chronic 20mg Q.25D Take 1 [place] (ROXICODONE 4-30 06-15 pain tablet (20 M ethodi ) 20 MG 00:00: 00:00 mg total) st tablet 00 :00 by mouth 4 (four) times a day for 30 days .chronic pain. oxyCODone 2019- No chronic 20mg Q.25D [...] hours as needed for muscle spasms. tiZANidine 2019-2019- No 4mg Q8H Take 1 [...] needed for moderate pain .Acute Pain. tiZANidine 2019-2019- No 4mg Q.[id number] Take 1 [place] (ZANAFLEX) 1-20 03-05 [id number] tablet (4 Methodi 4 MG tablet 00:00: 00:00 3D mg total) st 00 :00 by mouth 3 (three) times a day. oxyCODone 2019-2019- No chronic 20mg Q.25D Take 1 [place] (ROXICODONE 1-07 02-06 pain tablet (20 M ethodi ) 20 MG 00:00: 23:59 mg total) st tablet 00 :00 by mouth 4 (four) times a day for 30 days .chronic pain. Max Daily Amount: 80 mg tiZANidine 2018-03- No 4mg QD Take 1 [place] (ZANAFLEX) 05-19 01-20 tablet (4 Met hodi 4 MG tablet 00:00: 00:00 mg total) st 00 :00 by mouth daily for 90 days. oxyCODone-a 2018-03 2019- No oxycodone- [facility] cetaminophe 05-17 acetaminop M ethodi n 13:37: 00:00 hen [...] 00:00: Memoria 00 l Outpati ent Clinics NARCAN 4 2019- No UMU REP [place] mg/actuatio 09-30 ALN Methodi n 00:00: 00:00 st spray,non-a 00 :00 erosol hydromorPHO 2018- No TK 1 T PO [facility] NE 09-30 Q 4 TO 6 H Methodi (DILAUDID) 00:00: 00:00 st 4 MG tablet 00 :00 Meclizine Meclizine Yes Stu [address] HCl HCl 4-23 [place] as needed [facility] - 00:00: Memoria 00 l Outpati ent Clinics ELIQUIS 5 2017- Yes 5mg Q.5D 5 mg 2 [place] mg tablet -28 (two) Methodi 00:00: times a st 00 day. alendronate 2016-03- No [place] (FOSAMAX) 008-20 Methodi 70 MG 00:00: 00:00 st tablet 00 :00 atenolol 2015-03- No 25mg QD 25 mg [place] (TENORMIN) 04-22 daily. Method i 50 MG 00:00: 00:00 st tablet 00 :00 sucralfate 2014-03 Yes 1g Take [address] [facility] [facility] (CARAFATE) 0-06 by mouth [facility] - 1 g tablet 13:31: as needed Me dical 27 . Center atenolol 2014-03 Yes 25mg QD Take [address] (TENORMIN) 0-06 by mouth [facility] - 50 MG 13:31: daily. Medical tablet 27 Center clidinium-c 2014-03 Yes 1{capsu Q.5D Take [address] hlordiazepo 0-06 le} capsule by Stacy lagos 13:31: mouth 2 Medical (LIBRAX) 27 (two) [...] MG tablet 11:28: daily. Medica l 30 [place] esomeprazol Yes 40mg QD Take [address] e (NEXIUM) 3-12 by mouth [facility] - 40 MG 13:57: daily. Medical capsule 50 [place] HYDROcodone Yes 1{tbl} Take 1 CH I [...] [place] as needed [facility] Prolia Prolia Yes Stu [address] [place] [facility] Calcium Calcium Yes Stu [address] [facility] [place] [facility] Vitamin D-3 Vitamin D-3 Yes Stu [address] [facility] [place] [facility] Mupirocin Mupirocin Yes Stu [address] [facility] [facility] [place] applicatio [facility] - n to Memoria affected l area [facility] Spironolact Spironolact Yes Stu [address] one one [place] [facility] Tizanidine Tizanidine Yes Stu TK [address] HCl HCl [place] QD PRN [facility] Vital Signs Vital Name Observation Time Observation Value Comments Source Body height 2019-10-08 12:41:00 162.6 cm Feng Cummins Body weight 2019-10-08 12:41:00 67.132 kg Feng Cummins BMI 2019-10-08 12:41:00 25.40 kg/m2 Feng Cummins Systolic blood 2019-08-27 19:19:24 129 mm[Hg] [place] n Christian pressure Diastolic blood 2019-08-27 19:19:24 63 mm[Hg] [place] on Christian pressure Heart rate 2019-08-27 19:19:24 97 /min Feng Cummins Body temperature 2019-08-27 19:19:24 37.06 Nishi [place] ton Christian Respiratory rate 2019-08-27 19:19:24 15 /min [place] Christian Oxygen saturation in 2019-08-27 19:19:24 98 /min Feng Cummins Arterial blood by Pulse oximetry Procedures Procedure Date / Time Performing Clinician Source Performed XR FEMUR 2 VW RIGHT 2019-10-08 12:33:35 Bryson Mota BASIC METABOLIC PANEL 2019-08-27 04:29:00 Celio Ravi HC COMPLETE BLD COUNT 2019-08-27 04:29:00 Celio Ravi W/AUTO DIFF PHOSPHORUS LEVEL 2019-08-27 04:29:00 Celio Ravi on Christian MAGNESIUM LEVEL 2019-08-27 04:29:00 TravCelio ESTIMATED GFR 2019-08-27 04:29:00 Lilly Vasquez INFLUENZA [...] PARTIAL THROMBOPLASTIN 2019-08-25 05:30:00 Mitch Berrios on Christian TIME (PTT) BASIC METABOLIC PANEL 2019-08-25 05:30:00 Mitch Berrios HC COMPLETE BLD COUNT 2019-08-25 05:30:00 Mitch Berrios Christian W/AUTO DIFF ESTIMATED GFR 2019-08-25 05:30:00 Lilly Vasquez URINE CULTURE 2019-08-24 15:05:00 Lilly Vasquez URINALYSIS SCREEN AND 2019-08-24 15:05:00 Mitch Berrios MICROSCOPY, WITH REFLEX TO CULTURE BASIC METABOLIC PANEL 2019-08-24 04:05:00 Mitch Berrios HC COMPLETE BLD COUNT 2019-08-24 04:05:00 Mitch Berrios Christian W/AUTO DIFF ESTIMATED GFR 2019-08-24 04:05:00 Crissy Delacruz HC COMPLETE BLD COUNT 2019-08-23 10:40:00 Crissy Delacruz on Christian W/AUTO DIFF BASIC METABOLIC PANEL 2019-08-23 10:40:00 Crissy Delacruz on Christian ESTIMATED GFR 2019-08-23 10:40:00 Crissy Delacruz Met hodist CBC WITH PLATELET AND 2019-08-23 09:26:00 Mitch Berrios Christian DIFFERENTIAL BASIC METABOLIC PANEL 2019-08-23 09:26:00 Mitch Berrios Christian ESTIMATED GFR 2019-08-23 09:26:00 Crissy Delacruz Met hodist HEMOGLOBIN & HEMATOCRIT 2019-08-22 23:18:[address] PELVIS WO CONTRAST 2019-08-22 21:42:14 Celio Ravi HEMOGLOBIN & HEMATOCRIT 2019-08-22 14:00:00 Mitch Berrios Christian SODIUM LEVEL, URINE, 2019-08-22 14:00:00 Mitch Berrios Christian RANDOM OSMOLALITY, URINE 2019-08-22 14:00:00 Mitch Berrios Me thodist XR CHEST 1 VW PORTABLE 2019-08-22 09:05:00 Celio Ravi Christian HC COMPLETE BLD COUNT 2019-08-22 04:45:00 ParsonsPoli deleon Christian W/AUTO DIFF BASIC METABOLIC PANEL 2019-08-22 04:00:00 ParsonsPoli pyle Christian ESTIMATED GFR 2019-08-22 04:00:00 Lilly Vasquez URINE CULTURE 2019-08-21 20:16:00 Crissy Delacruz Met hodist URINALYSIS SCREEN AND 2019-08-21 20:16:00 Elliott Cleveland Christian MICROSCOPY, WITH REFLEX TO CULTURE ECG 12-LEAD 2019-08-21 11:27:46 Mitch Berrios Meth odist HC COMPLETE BLD COUNT 2019-08-21 05:23:00 ParsonsPoli Christian W/AUTO DIFF BASIC METABOLIC PANEL 2019-08-21 04:00:00 ParsonsPoli pyle Christian MAGNESIUM LEVEL 2019-08-21 04:00:00 ParsonsPoli deleon Meth odist PHOSPHORUS LEVEL 2019-08-21 04:00:00 Poli Parsons Met hodist ESTIMATED GFR 2019-08-21 04:00:00 Lilly Vasquez OR FL > 1 HOUR 2019-08-20 18:39:22 Poli Parsons Meth odist ANESTHESIA INTUBATION 2019-08-20 17:02:55 Gwen Proctor Christian INTRAMEDULLARY RODDING, 2019-08-20 16:13:00 Bryson Mota Christian FEMUR XR HIP 2-3 VIEWS RIGHT 2019-08-20 10:16:25 Breezy Louie on Christian XR PELVIS 1 OR 2 VW 2019-08-20 10:16:10 Breezy Louie XR WRIST 3+ VW LEFT 2019-08-20 10:15:11 Breezy Louie COMPREHENSIVE METABOLIC 2019-08-20 07:42:00 Lilly Vasquez PANEL ESTIMATED GFR 2019-08-20 07:42:00 Bryson Mota odsuma PARTIAL THROMBOPLASTIN 2019-08-20 07:35:00 Poli Parsons Christian TIME (PTT) PREPARE RBC 2019-08-20 07:35:00 Lilly Vasquez ECG 12-LEAD 2019-08-20 06:19:06 Bob Flowers odsuma HC COMPLETE BLD COUNT 2019-08-20 04:50:00 Bob Flowers Christian W/AUTO DIFF PROTHROMBIN TIME WITH INR 2019-08-20 04:50:00 Bob Flowers [place] Christian COMPREHENSIVE METABOLIC 2019-08-20 04:50:00 Bob Flowers Christian PANEL MAGNESIUM LEVEL 2019-08-20 04:50:00 Bob Flowers Meth odist PHOSPHORUS LEVEL 2019-08-20 04:50:00 Bob Flowers Met hodist LIPID PANEL 2019-08-20 04:50:00 Bob Flowers Meth odist HEMOGLOBIN A1C 2019-08-20 04:50:00 Bob Flowers Meth odist ESTIMATED GFR 2019-08-20 04:50:00 Lilly Vasquez XR UPPER EXTREMITY 2019-08-19 22:25:00 Lilly Vasquezist EXTERNAL STUDY CT HEAD EXTERNAL STUDY 2019-08-19 22:17:00 Lilly Vasquez [facility] Christian DRUG SCREEN 2019-04-19 00:00:00 Daryl Hare DRUG SCREEN 2019-03-16 00:00:00 Daryl Hare Plan of Care Planned Activity Planned Date Details Comments Source Future Scheduled 2019-12-30 INFLUENZA VACCINE Xiomarato kate Christian Test 00:00:00 [code = INFLUENZA VACCINE] Future Scheduled 2008-10-27 65+ PNEUMOCOCCAL Feng Christian Test 00:00:00 VACCINE (1 of 2 - PCV13) [code = 65+ PNEUMOCOCCAL VACCINE (1 of 2 - PCV13)] Future Scheduled 1993-10-27 COLONOSCOPY SCREENING Regan thapa Christian Test 00:00:00 [code = COLONOSCOPY SCREENING] Future Scheduled 1993-10-27 SHINGLES VACCINES (#1) H [facility] Christian Test 00:00:00 [code = SHINGLES VACCINES (#1)] Encounters Start End Encounter Admission Attending Care Care Encounter Source Date/Time Date/Time Type Type Clinicians Facility Department ID 2019-10-21 2019-10-21 Outpatient Steve Allen [id number] ELLIOTT Kaur 15:00:00 15:00:00 [employer] [facility] 2019-10-14 2019-10-14 Outpatient Steve Allen [id number] [facility] [address] 12:21:00 12:21:00 [employer] [facility] Medicine Outpati ent Clinics 2019-10-08 2019-10-08 Outpatient BRYSON MOTA [facility] [id number] [facility] 00:00:00 00:00:[address] 2019-10-08 2019-10-08 Outpatient BRYSON MOTA [facility] [id number] [facility] 00:00:00 00:00:[address] 2019-09-16 2019-09-16 Outpatient ELISA [facility] [id number] [facility] 00:00:00 00:00:00 DARYL lim 2019-08-20 2019-08-27 Inpatient NATALIE [facility] [id number] [facility] 00:00:00 00:00:00 LILLY De Oliveira [facility] 2019-08-05 2019-08-05 [facility] [id number] [address] 14:58:00 14:58:00 t [employer] [facility] Medicine Outpati ent Clinics 2019-07-22 2019-07-22 [facility] [id number] 12:29:00 12:29:00 t [employer] [facility] Medicine Outpati ent Clinics 2019-07-19 2019-07-19 Outpatient ELISA [facility] [id number] [facility] 00:00:00 00:00:00 DARYL Andres [facility] 2019-05-28 2019-05-28 [facility] [id number] 08:12:00 08:12:00 t [employer] [facility] Medicine Outpati ent Clinics 2019-05-25 2019-05-25 Outpatient ELISA [facility] [id number] [address] [place] [address] 00:00:00 00:00:00 DARYL Gracia [facility] 2019-05-20 2019-05-20 [facility] [id number] 09:00:00 09:00:00 t [employer] [facility] Medicine Outpati ent Clinics 2019-04-28 2019-04-28 [facility] [id number] 16:26:00 16:26:00 [place] [employer] [facility] Medicine Outpati ent Clinics 2019-03-09 2019-03-09 [facility] [id number] 16:45:00 16:45:00 [place] [employer] [facility] Medicine Outpati ent Clinics 2019-03-03 2019-03-03 [facility] [id number] 15:38:00 15:38:00 [place] [employer] [facility] Medicine Outpati ent Clinics 2019-03-03 2019-03-03 [facility] [id number] 13:00:00 13:00:[address] [place] [address] Luke s - Drive [facility] Medicine l Medicine Outpati ent Clinics 2019-01-27 2019-01-27 [facility] [id number] 11:24:00 11:24:[address] [place] [address] Luke s - Drive [facility] Medicine l Medicine Outpati ent Clinics 2019-01-07 2019-01-07 [facility] [id number] 11:56:00 11:56:[address] [place] [address] Luke s - Drive [facility] Medicine l Medicine Outpati ent Clinics 2019-01-04 2019-01-04 [facility] [id number] 16:00:00 16:00:[address] [place] [address] Luke s - Drive [facility] Medicine l Medicine Outpati ent Clinics 2018-12-23 2018-12-23 [facility] [id number] 14:16:00 14:16:[address] Luke s - Drive [facility] Medicine l Medicine Outpati ent Clinics 2018-12-17 2018-12-17 [facility] [id number] 11:29:00 11:29:[address] [place] [address] Luke s - Drive [facility] Medicine l Medicine Outpati ent Clinics 2018-12-14 2018-12-14 [facility] [id number] 16:12:00 16:12:[address] Luke s - Drive [facility] Medicine l Medicine Outpati ent Clinics 2018-12-02 2018-12-02 Outpatient [facility] [id number] [facility] 14:45:00 14:45:[address] [place] - Drive [facility] Medicine l Medicine Outpati ent Clinics 2018-11-23 2018-11-23 [facility] [id number] 10:51:00 10:51:[address] [place] - Drive [facility] Medicine l Medicine Outpati ent Clinics 2018-10-20 2018-10-20 [facility] [id number] [facility] 15:40:00 15:40:[address] [place] - Drive [facility] Medicine l Medicine Outpati ent Clinics 2018-08-11 2018-08-11 [facility] [id number] 08:59:00 08:59:[address] [place] - Drive [facility] Medicine l Medicine Outpati ent Clinics 2018-08-10 2018-08-10 [facility] [id number] [address] 15:55:00 15:55:[address] [place] - Drive [facility] Medicine l Medicine Outpati ent Clinics 2018-07-29 2018-07-29 [facility] [id number] 09:31:00 09:31:[address] [place] - Drive [facility] Medicine l Medicine Outpati ent Clinics 2018-07-21 2018-07-21 [facility] [id number] 11:45:00 11:45:[address] [place] - Drive [facility] Medicine l Medicine Outpati ent Clinics 2018-07-14 2018-07-14 [facility] [id number] 13:31:00 13:31:[address] [place] - Drive [facility] Medicine l Medicine Outpati ent Clinics 2018-07-01 2018-07-01 [facility] [id number] 14:10:00 14:10:[address] [place] - Drive [facility] Medicine l Medicine Outpati ent Clinics 2018-07-01 2018-07-01 [facility] [id number] [address] 11:45:00 11:45:[address] [place] - Drive [facility] Medicine l Medicine Outpati ent Clinics 2018-06-04 2018-06-04 [facility] [id number] [address] 11:30:00 11:30:[address] [place] - Drive [facility] Medicine l Medicine Outpati ent Clinics 2018-03-18 2018-03-18 [facility] [id number] [address] 14:08:00 14:08:[address] [place] - Drive [facility] Medicine l Medicine Outpati ent Clinics 2018-01-12 2018-01-12 [facility] [id number] 08:45:00 08:45:[address] [facility] 2018-01-05 2018-01-05 [facility] [id number] 14:00:00 14:00:00 [facility] Results Test Description Test Time Test Comments Results Result Comments Source Blood culture, aerobic & anaerobic 2019-08-30 13:03:04 Test Item Value Reference Range Interpretation Comme nts Blood culture isolate No growth after 5 days of Specimen InformationSpecimen (test code = 600-7) incubation. Source: BloodSpecimen Site: Antecubital Lef t M[facility]all MethodistCOVID-19 qualitative [id number] 11:19:23 Test Item Value Reference Range Interpretation Comments Interpretation (test Negative results do code = 5691764) not preclude 2019-nCoV infection and should not be used as the sole basis for treatment or other patient management decisions. Negative results must be combined with clinical observations, patient history, and epidemiological information. COVID-19 qualitative Not-Detected Not-Detected PCR result (test code = 57894-3) COVID-19 qualitative See link below for C ase Number: PCR (test code = PDF Lab Report [id number]) UMU (test code = Report was revised to UMU) add the MethodologyMETHODOLOG Y:This assay utilizes reagents for nucleic acid amplification and real-time polymerase chain reaction. M[facility]all MethodistBasic metabolic [id number] 05:33:02 Test Item Value Reference Range Interpretation Comments Sodium (test code = 2951-2) 138 135- 148 mEq/L Potassium (test code = 2823-3) 3.8 3.5- 5.0 mEq/L Chloride (test code = 2075-0) 102 98- 112 mEq/L CO2 (test code = 8-9) 26 24- 31 mEq/L Anion gap (test code = 26089-2) 10@ANIO 7- 15 mEq/L BUN (test code = 3094-0) 7 mg/dL 8-23 L Creatinine (test code = 2160-0) 0.47 mg/dL 0.5-0.9 L Glucose (test code = 2345-7) 91 mg/dL 65-99 Calcium (test code = 19382-1) 9.1 mg/dL 8.8-10.2 Lab Interpretation (test code = Abnormal 81147-3) Feng MethodistMagnesium [id number] 05:33:02 Test Item Value Reference Range Interpretation Comments Magnesium (test code = 58432-7) 1.9 mg/dL 1.6-2.4 Feng MethodistEstimated [id number] 05:33:02 Test Item Value Reference Range Interpretation Comments Estimated GFR (test >=90 mL/min/1.73 m2 [facility] code = 5488) InterpretationG 1 >=90 Normal or highG2 60-89 Mildly muguixgfqG8o 45-59 Mildly to mode rately wuyqxxmndD7a 30-44 Moderately to severely decreasedG4 15-29 Severely decre asedG5 <15 Kidn ey failureThe eGFR was calculated brittny becerril the Chronic Kidney Disease Epidemiology Co llaboration (CKD-EPI) equat ion. Interpretation is based on recommendations of the National Kidney Foundation-Kidn ey Disease Outcomes Qualit y Initiative (NKF-KDOQI) pub lished in 2013. Feng MethodistPhosphorus [id number] 05:33:00 Test Item Value Reference Range Interpretation Comments Phosphorus (test code = 2777-1) 4.3 mg/dL 2.4-4.5 Feng MethodistCBC with platelet and urxrgsslqiim9928-26-53 05:00:07 Test Item Value Reference Range Interpretation Comments WBC (test code = 18237-8) 6.85 4.50- 11.00 k/uL RBC (test code = 81536-1) 2.94 m/uL 4.2-5.5 L HGB (test code = 718-7) 7.6 g/dL 12-16 L HCT (test code = 4544-3) 24.2 % 37-47 L MCV (test code = 787-2) 82.3 fL 82-100 MCH (test code = 785-6) 25.9 pg 27-34 L MCHC (test code = 786-4) 31.4 g/dL 31-37 RDW - SD (test code = 43.9 fL 37-55 71547-5) MPV (test code = 98605-3) 10.5 fL 8.8-13.2 Platelet count (test code 306 150- 400 k/uL = 80894-8) Nucleated RBC (test code 0.00 /100 WBC = 99282-9) Neutrophils (test code = 66.3 % 39-69 00107-3) Lymphocytes (test code = 17.2 % 25-45 L 66483-3) Monocytes (test code = 11.8 % 0-10 H 71704-7) Eosinophils (test code = 3.2 % 0-5 10800-0) Basophils (test code = 0.6 % 0-1 69846-7) Immature granulocytes 0.9 % 0-1 "Immat ure (test code = 82079-4) granul ocytes" (promyelocytes, myelocytes, metamyelocytes) Lab Interpretation (test Abnormal code = 31940-3) [facility] MethodInscription [facility] Health Centerespiratory pathogen [id number] 21:05:03 Test Item Value Reference Interpretation Comments Range Adenovirus PCR (test Not Detected Specime n code = 7092) InformationSpec imen [facility] Coronavirus HKU1 PCR Not Detected [...] pertussis Not Detected PCR (test code = 5560124) Bordetella Not Detected parapertussis PCR (test code = 2202444) Chlamydia pneumoniae Not Detected PCR (test code = 3753) Mycoplasma Not Detected pneumoniae PCR (test code = 7110) Influenza A no sub Not Reported type PCR (test code = 7127) Toney MethodistInfluenza antigen test, reflex negative to [id number] 21:04:11 Test Item Value Reference Range Interpretation Comments Influenza Negative for Specimen antigen (test Influenza A/[facility]) antigen. Source: [facility] Site: Left Mccall MethodistOR [place] > I [id number] 14:31:56Hm Interface, Radiology Results 08/26/2019 2:35 PM CDTEXAMINATION: OR FL > 1 HOURC-arm fluoroscopy was requested in OR. OPC19 OR ROOM: 5PROCEDURE: INTRAMEDULLARY RODDING, RIGHT FEMURSTART TIME: 1600END TIME: 1840FLUORO TIME: 2min 50secDOSAGE: 43.31mGyIMPRESSION:Intraoperative fluoroscopic images. Radiologist was not present during the examination.Separate operative report will be issued by the physician performing the procedure.[id number] MethodistXR Chest 1 Vw [id number] 19:16:24Hm Interface, Radiology Results 08/25/2019 7:19 PM [...] and osseous structures accounting for differences in technique.[id number] MethodistPartial thromboplastin time, xscvbaeif5912-09-23 06:28:42 Test Item Value Reference Range Interpretation Comments PTT (test code = 35.1 23.0- 36.0 [place] [address]-8) unfractionated heparin is61.0-112.0 se conds which corresponds to Anti-Xa0.3-0.7 U/ml. Mccall KrishnaistProthrombin time with [id number] 06:28:02 Test Item Value Reference Range Interpretation Comments Prothrombin time (test 15.7 11.5- 14.5 sec H code = 5902-2) INR (test code = 1.2 [facility] 6[facility]8) Normalized Rati o (INR) is a therapeuti c monitoring tool for patients who ar e stable on oral anticoagulant t herapy. An INR of 2.0-3 .0 is suggested for d eep vein thrombosis/pulm onary embolism. Lab Interpretation Abnormal (test code = 64521-7) Feng MethodistUrinalysis screen and microscopy, with reflex to culture 2019-08-24 16:10:24 Test Item Value Reference Range Interpretation Comments Specimen site (test code = Catheterized 2760075) Color, UA (test code = 5778-6) Yellow Appearance, UA (test code = Clear 5767-9) Specific gravity, UA (test code 1.009 1.001-1.035 = 5811-5) pH, UA (test code = 5803-2) 7.0 5.0-8.5 Protein, UA (test code = Negative Negative 29839-9) Glucose, UA (test code = Negative Negative 67088-7) Ketones, UA (test code = 2514-8) Negative Negative Bilirubin, UA (test code = Negative Negative 5770-3) Blood, UA (test code = 5794-3) Negative Negative Nitrite, UA (test code = 5802-4) Negative Negative Urobilinogen, UA (test code = 4.0 <2.0 A 88495-3) Leukocyte esterase, UA (test Negative Negative code = 5799-2) Epithelial cells, UA (test code 1 /HPF = 5787-7) WBC, UA (test code = 5821-4) 1 0- 4 /HPF RBC, UA (test code = 81786-2) <1 0- 5 /HPF Bacteria, UA (test code = None seen None seen 18292-4) Yeast, UA (test code = 70880-8) None seen Yeast with pseudohyphae, UA None seen (test code = 38832-2) Lab Interpretation (test code = Abnormal 36674-3) Feng CumminsUrine [id number] 16:01:52 Test Item Value Reference Range Interpretation Comments Urine culture (test SEE COMMENT Bacteriu manpreet screen code = 8754552) negative. Feng MethodistHemoglobin & ukvemmmcrf2537-27-17 23:39:00 Test Item Value Reference Range Interpretation Comments HGB (test code = 718-7) 8.0 g/dL 12-16 L HCT (test code = 4544-3) 25.3 % 37-47 L Lab Interpretation (test code = Abnormal 74481-0) Feng KelleristCT Pelvis Wo [id number] 21:53:15Hm Interface, Radiology Results 08/22/2019 9:56 PM [...] interpreted. 3-D reformats created by a dedicated cardiac technologist at an independent workstation were also [...] mass, free pelvic fluid or significant lymphadenopathy. [facility]-[id number] MethodistOsmolality, urine 2019-08-22 17:32:22 Test Item Value Reference Range Interpretation Comments Osmolality, urine (test code = 510 50- 1,400 mOsm/kg 2695-5) Mccall Basilodium level, urine, [id number] 17:11:19 Test Item Value Reference Range Interpretation Comments Sodium, urine, random (test code = 49 mEq/L 05252-0) Mccall MethodsumaECG 12 [id number] 12:35:52 Test Item Value Reference Range Interpretation Comments Ventricular rate (test 109 code = 253) Atrial rate (test code 109 = 255) MO interval (test code 140 = 266) QRSD [...] wave amplitude has decreased in Lateral leads- Feng KelleristPrepare [id number] 19:35:00 Test Item Value Reference Range Interpretation Comments Product name (test code Red Blood Cells -1, = 25) Leukored Unit number (test code [id number] = [id number]) Product code (test code H3394B07 = 3092) Dispense status (test Returned to not code = 24) transfused Blood expiration date (test code = 302) Blood type code (test 5100 code = 308) Blood type (test code = O POSITIVE 1314) Compatibility (test Compatible code = 6400) Feng KellerWkraftwiwEkogyy4348-23-09 17:02:55Gwen Proctor CRNA 08/20/2019 5:07 PMAirwayDate/Time: 08/20/2019 [...] glidescope electively used due to limited neck mobilitySullivan County Memorial Hospitalfred Cummins Hip 2-3 View [id number] 11:08:51Hm Interface, Radiology Results Incoming 08/20/2019 11:11 AM CDTEXAMINATION: XR HIP 2-3 VIEWS RIGHTCLINICAL HISTORY: 73 years Female Right IT fractureCOMPARISON: None available at this time.IMPRE SSION:There is an acute, impacted, intertrochanteric fracture of the right femur with moderate angulation and displacement.Joint space narrowing of the right hipNo suspicious focal blastic or lytic lesionsNo radiopaque foreign bodies are present.Feng MethodistXR Pelvis 1 Or 2 [id number] 10:38:20Hm Interface, Radiology Results Incoming 08/20/2019 10:41 AM CDTEXAMINATION: XR PELVIS 1 OR 2 VWCLINICAL HISTORY: Hip fractureCOMPARISON: None.FINDINGS:Intertrochanteric fracture right femur with moderate varus deformityFemoral head maintained within the acetabulumPelvic ring intact. Vertebral augmentation changes at L4 and L5.Underlying osteopeniaIMPRESSION:Intertrochanteric fracture right femur [id number] MethodistXR Wrist 3+ Vw [id number] 10:36:55Hm Interface, Radiology Results 08/20/2019 10:40 AM CDTEXAMINATION: XR WRIST 3 VW LEFTCLINICAL HISTORY: Left wrist painCOMPARISON: None.IMPRESSION:Severe degenerative change at the firstcarpometacarpal articulationModerate degenerative osteophytic change at the triscaphe articulationNocarpal fracture or dislocationDistal radius and ulna well-[id number]_PS01Houston MethodistType and zkqcjx7795-02-24 08:41:00 Test Item Value Reference Range Interpretation Comments ABO grouping (test code = 883-9) O Rh type (test code = 54860-8) POS Antibody screen (gel) (test code = NEG 890-4) Mccall MethodistComprehensive metabolic gloiy9546-24-80 08:22:37 Test Item Value Reference Range Interpretation Comments Sodium (test code = 134 135- 148 mEq/L L 2951-2) Potassium (test code = 4.2 3.5- 5.0 mEq/L 2823-3) Chloride (test code = 96 98- 112 mEq/L L 5-0) CO2 (test code = 2027-9) 23 24- 31 mEq/L L Anion gap (test code = 15@ANIO 7- 15 mEq/L 69434-3) BUN (test code = 3094-0) 13 mg/dL 8-23 Creatinine (test code = 0.64 mg/dL 0.5-0.9 2160-0) Glucose (test code = 115 mg/dL 65-99 H 2345-7) Calcium (test code = 9.6 mg/dL 8.8-10.2 23403-7) Protein (test code = 7.5 g/dL 6.3-8.3 -[place] n 2885-2) 4.6-7.0 g/dL1 week 4.4-7 .6 g/dL7 months-1y ear 5.1-7 .3 g/dL1-2 years 5.6-7 .5 g/dL>3 years 6.0-8 .0 g/oH96-525 6.3-8 .3 g/dL Albumin (test code = 3.5 g/dL 3.5-5 1751-7) A/G ratio (test code = 0.9 0.7-3.8 1759-0) Alkaline phosphatase 41 U/L 35-104 (test code = 6768-6) AST (test code = 1920-8) 39 U/L 10-35 H ALT (test code = 1742-6) 22 U/L 5-50 Total bilirubin (test 1.2 mg/dL 0-1.2 code = 1974-2) Lab Interpretation (test Abnormal code = 71940-5) Feng MethodistHemoglobin [id number] 08:10:58 Test Item Value Reference Range Interpretation Comments Hemoglobin A1C (test 5.4 % 4-5.6 HbA1c c utoffs for code = 33445-5) diagnosing d iabetes:4.0% - 5.6% = normal 5.7% - 6.4% = increase d risk for diabetes (prediabetes)9> =6.5% = ngmbekeb1Bjhcw for glycemic contro l (ADA 2016)< 7.0% Ta rget for non yasmin lts with diabetes. More or less stringent targe ts may be appropriate for individual hank ents. <7.5% Target for Children and ad olescents with type 1 xavier betes. Feng MethodistLipid [id number] 06:27:20 Test Item Value Reference Interpretation Comments Range Cholesterol (test 166 mg/dL <200 code = 2093-3) Triglycerides (test 57 mg/dL <150 code = 2571-8) HDL cholesterol 89 mg/dL >40 (test code = 2085-9) LDL cholesterol 80 mg/dL <100 Result obtai tucker by direct (test code = 2089-1) LDL ulisses surement Lipid panel SeeBelow Total Cholester ol (mg/dL) interpretation (test < 200 code = 23794-8) Desirable 200-239 Borderline -high >=240 Hi gh [...] in personswith high triglycerides ( >=200 mg/dL) Feng MethodistXR Upper Extremity External Iuspb6681-94-67 05:46:41This exam was not acquired at a Christian facility and has not been interpreted by a Christian Provider. The exam was imported into our imaging system.Toney MethodistCT Head External Yaeqw3933-69-36 05:46:02This exam was not acquired at a Christian facility and has not been interpreted by a Christian Provider. The exam was imported into our imaging system.Feng MethodistANG, KYPHOPLASTY, LUMBAR, [id number] 08:42:00What level(s) should be performed->L4-5Reason for exam:->COMPRESSION [...] MDReport Verified Date/Time: 12/11/2016 08:42:31 Reading Location: [place] [address] Angio Body Reading Room 08:42 AMBUN AND [id number] 06:18:00 Test Item Value Reference Range Interpretation [...] (BEAKER) (test code = 413) BASIC METABOLIC [id number] 06:49:00 Test Item Value Reference Range Interpretation [...] NOT APPLICABLE FOR DIALYSIS PATIEN TS. PROTHROMBIN TIME/[id number] 06:31:00 Test Item Value Reference Range Interpretation Comments PROTIME (BEAKER) (test code = 13.4 seconds 11.7-14.7 759) INR (BEAKER) (test code = 370) 1.0 <=5.9 RECOMMENDED COUMADIN/WARFARIN INR THERAPY RANGESSTANDARD DOSE: 2.0 - 3.0 Includes: PROPHYLAXIS forvenous thrombosis, systemic embolization; TREATMENT for venous thrombosis and/or pulmonary embolus.HIGH RISK: Target INR is 2.5-3.5 for patients with mechanical heart valves.[id number] 06:31:00 Test Item Value Reference Range Interpretation Comments PARTIAL THROMBOPLASTIN TIME 26.2 seconds 22.5-36.0 (BEAKER) (test code = 760) CBC W/PLT COUNT & AUTO [id number] 06:23:00 Test Item Value Reference Range Interpretation [...] 0-1 PERCENT (BEAKER) (test code = 2801) [facility], MULTI, PHARM, [id number] 14:11:00Please do D SPECT camera for this patient Reason for exam:->Chest PainFINAL REPORT PROCEDURE: Rest/Stress MYOCARDIAL PERFUSION SPECT with regad enoson\\XA9\\ CPT CODE: 19512 INDICATION: Chest pain, acute, nonspecific, low probability [...] tracer distribution. 6. No previous [facility] study for comparison. NONINVASIVE RISK STRATIFICATION: The above findings are considered low risk (<1% annual mortality rate) based on the following criterion:- Normal or small myocardial perfusion defect at rest or with stres s([facility]. 2012;59(9):857-81.) Signed: Shweta Lockhart [facility] Verified Date/Time: 12/04/2016 14:11:13 Reading Location: [place] [id number] Reading Room RAD, SPINE, SCOLIOSIS STUDY, 2 OR 3 [id number] 16:17:00Reason for exam:- >scoliosis of lumbar spine, [...] MDReport Verified Date/Time: 12/03/2016 16:17:14 Reading Location: [facility] Radiology ReadingRoom MR, BRAIN, [id number] 09:02:00FINAL REPORT MRI brain with and without contrast Comparison: None Reason for exam: Neoplasm, COVER MAKER primary, calcified meningioma Discussion: Multiplanar MR imaging of the brain was provided twx-bvl-qtaz IV gadolinium administration using T1, T2, FLAIR, [...] MDReport Verified Date/Time: 12/03/2016 09:02:27 Reading Location: [facility] B1 C013V Neuro Reading Room [id number] 05:45:00 Test Item Value Reference Range Interpretation Comments MAGNESIUM (BEAKER) (test code = 1.8 mg/dL 1.6-2.6 627) BASIC METABOLIC [id number] 05:45:00 Test Item Value Reference Range Interpretation [...] PATIEN TS. CBC W/PLT COUNT & AUTO [id number] 05:31:00 Test Item Value Reference Range Interpretation [...] PERCENT (BEAKER) (test code = 2801) TROPONIN [id number] 01:13:00 Test Item Value Reference Range Interpretation [...] acidosis, acute neurological disease, and persistent tachyarrhythmia.TROPONIN [id number] 19:15:00 Test Item Value Reference Range Interpretation [...] acidosis, acute neurological disease, and persistent tachyarrhythmia.TROPONIN [id number] 12:09:00 Test Item Value Reference Range Interpretation [...] renalfailure, acidosis, acute neurological disease, and persistent tachyarrhythmia.[id number] 06:18:00 Test Item Value Reference Range Interpretation Comments MAGNESIUM (BEAKER) (test code = 1.7 mg/dL 1.6-2.6 627) BASIC METABOLIC [id number] 06:18:00 Test Item Value Reference Range Interpretation [...] PATIEN TS. CBC W/PLT COUNT & AUTO [id number] 05:54:00 Test Item Value Reference Range Interpretation [...] 0-1 PERCENT (BEAKER) (test code = 2801) [id number] 10:28:00 Test Item Value Reference Range Interpretation Comments MAGNESIUM (BEAKER) (test code = 1.6 mg/dL 1.6-2.6 627) BASIC METABOLIC [id number] 10:28:00 Test Item Value Reference Range Interpretation [...] NOT APPLICABLE FOR DIALYSIS PATIEN TS. LIPID [id number] 10:28:00 Test Item Value Reference Range Interpretation [...] Borderline 130-159 High 160-189 Very High >=190PROTHROMBIN TIME/[id number] 10:22:00 Test Item Value Reference Range Interpretation [...] % 0-1 PERCENT (BEAKER) (test code = 3241)
[2019-11-23] MEDS ORDERED: FENTANYL CITR 100 MCG/2 ML ONE ×3 (04:33→08:54)
[2019-11-23 04:41] LABS: Absolute Lymphocytes (CBC) 0.8 K/uL (0.7-4.9); Basophils % 0.7 % (0-1.3); Hematocrit 27.3 % (36.0-45.0); Lymphocytes % 11.7 % (15.3-44.8); RBC Red Blood Cell Count 3.84 M/uL (3.86-4.86)
[2019-11-23 05:00] LABS: BUN Blood Urea Nitrogen 16 mg/dL (7-18); Bicarbonate 30 mmol/L (21-32); Glucose Level 98 mg/dL (74-106); Potassium 3.9 mmol/L (3.5-5.1); Sodium Level 136 mmol/L (136-145); Troponin (Emerg Dept Use Only) < 0.02 ng/mL (0.0-0.045)
--- NOTE | 2019-11-23 08:09 | ER ---
Nurse's Notes [facility] Name: Arianne Ambriz Age: 74 yrs Sex: Female : 1945 Arrival Date: 11/23/2019 Time: 03:40 Bed 5 Private MD: Diagnosis: Intertrochanteric fracture of femur Presentation: 11/22 03:30 Chief complaint: EMS states: Called for patient who fell in the bathroom while lp1 attempting to get up, may have tripped on rug; Per , patient tends to fall asleep while on the toilet; Patient states hitting her head on the bathroom door; unknown LOC; Pain to left hip; Per EMS, left leg externally rotated, shortened. 03:30 Coronavirus screen: Client denies travel out of the [place] in the last 14 days. At this lp1 time, the client does not indicate any symptoms associated with coronavirus-19. Ebola Screen: No symptoms or risks identified at this time. Initial Sepsis Screen: Does the patient meet any 2 criteria? No. Patient's initial sepsis screen is negative. Does the patient have a suspected source of infection? No. Patient's initial sepsis screen is negative. Risk Assessment: Do you want to hurt yourself or someone else? Patient reports no desire to harm self or others. Note EMS unable to access peripheral IV. Onset of symptoms was November 23, 2019. Care prior to arrival: Medication(s) given: Fentanyl 50 mcg IM to left deltoid. 03:30 Method Of Arrival: EMS: [facility] lp1 03:30 Acuity: THADDEUS 2 lp1 04:08 Mechanism of Injury: Fall from standing position. Trauma event details: Injury occurred lp1 in the [facility], Injury occurred: at home. Injury occurred: November 23, 2019 Injury occurred at: 03:00. Trauma Activation: Alert Physician: ED Physician; Name: Dr. Barrera; Notified At: 03:30; Arrived At: 03:30 Physician: General Surgeon; Name: N/A; Notified At: 03:30; Arrived At: Physician: Radiology; Name: Danny Brantley; Notified At: 03:30; Arrived At: 03:31 Physician: Respiratory; Name: N/A; Notified At: 03:30; Arrived At: Physician: Lab; Name: N/A; Notified At: 03:30; Arrived At: Historical: - Allergies: 04:06 butorphanol; lp1 04:06 Ciprofloxacin (DIZZINESS); lp1 04:06 Erythromycin; lp1 04:06 GABAPENTIN; lp1 04:06 Levaquin; lp1 04:06 Neurontin; lp1 04:06 Stadol; (cardiac arrest); lp1 04:06 TETRACYCLINES; lp1 - Home Meds: 04:06 oxycodone 15 mg Oral tab 1 tab every 6 hours [Active]; Eliquis 5 mg oral tab 1 tab 2 lp1 times per day [Active]; tizanidine 4 mg oral cap 1 cap 3 times per day [Active]; - PMHx: 04:06 Arthritis; Back pain; William hip bursitis; Chronic pain; Complication of anesthesia; DVT; lp1 GERD; Hypertension; - PSHx: 04:06 Back fx x3; shoulder sx; Knee surgery; R hip sx; lp1 - Immunization history:: Adult Immunizations up to date. - Social history:: Smoking status: Patient denies any tobacco usage or history of. - Immunization history: Last tetanus immunization: unknown. Screenin:10 Abuse screen: Denies threats or abuse. Denies injuries from another. Nutritional lp1 screening: No deficits noted. Tuberculosis screening: No symptoms or risk factors identified. Fall Risk Total Wade Fall Scale indicates High Risk Score (45 or more points). Fall prevention measures have been instituted. Side Rails Up X 2 Frequent Obs/Assessments Occuring As available patient and family educated on Fall Prevention Program and Strategies. Primary Survey: 03:30 NO uncontrolled hemorrhage observed. A: The patient is alert. Airway: patent, No lp1 supplemental oxygen in use on arrival. Breathing/Chest: Respiratory effort: spontaneous, unlabored, Breath sounds: clear, bilaterally. Chest inspection: symmetrical rise and fall of the chest. Circulation: Pulses: palpable right dorsalis pedis artery and left dorsalis pedis artery. Skin color: pink, Skin temperature: warm, dry. Disability Alert. Exposure/Environment: All clothing and personal items were removed. A warming method has been applied: A warm blanket has been provided to the patient. 05:00 Reassessment Airway Airway Patent Breathing/Chest Respiratory pattern Regular lp1 Respiratory effort Spontaneous Unlabored. Secondary Survey: 04:08 HEENT: No deficits noted. Gastrointestinal: No deficits noted. : No deficits noted. lp1 Musculoskeletal: Range of motion: limited in left hip. Assessment: 04:07 General: Appears uncomfortable, Behavior is appropriate for age. Pain: Complains of lp1 pain in left hip Pain currently is 10 out of 10 on a pain scale. Neuro: Level of Consciousness is awake, alert, obeys commands, Oriented to person, place, situation. EENT: No signs and/or symptoms were reported regarding the EENT system. Cardiovascular: Capillary refill < 3 seconds in bilateral fingers toes Patient's skin is warm and dry. Respiratory: Respiratory effort is even, unlabored, Breath sounds are clear bilaterally. GI: Abdomen is non-distended. : No signs and/or symptoms were reported regarding the genitourinary system. Derm: Skin is pink, warm \T\ dry. Musculoskeletal: Range of motion: limited in left hip Reports pain in left hip. 04:39 Reassessment: Patient returned from CT. lp1 05:00 Reassessment: Patient readjusted for comfort to left hip at this time. Neuro: Level of lp1 Consciousness is awake, alert, obeys commands. 06:15 Reassessment: Patient states pain to left hip returning, rated 10/10 on pain scale; lp1 Provider notified. 06:15 Neuro: Level of Consciousness is awake, alert, obeys commands. lp1 06:30 Reassessment: Verbal order per Dr. Barrera for Fentanyl 50 mcg IV now. lp1 07:35 Reassessment: Patient appears in no apparent distress at this time. Patient and/or ph family updated on plan of care and expected duration. Pain level reassessed. Patient is alert, oriented x 3, equal unlabored respirations, skin warm/dry/pink. Attempted to call report to [facility], receiving nurse unavailable, will call back. 08:35 Reassessment: Report given to RN at [facility], awaiting EMS for transport. ph Vital Signs: 03:30 BP 158 / 79; Pulse 105; Resp 19; Temp 98.2(O); Pulse Ox 100% on R/A; Weight 72.57 kg lp1 (R); Height 5 ft. 5 in. (165.10 cm); Pain 10/10; 04:00 BP 159 / 72; Pulse 105; Resp 20; Pulse Ox 100% on R/A; lp1 04:45 BP 154 / 80; Pulse 103; Resp 20; Pulse Ox 97% on R/A; lp1 05:30 BP 175 / 84; Pulse 104; Resp 17; Pulse Ox 100% on R/A; lp1 06:30 BP 156 / 80; Pulse 107; Resp 20; Pulse Ox 99% on R/A; lp1 07:26 BP 163 / 81; Pulse 104; Resp 18; Temp 97.8; Pulse Ox 98% on R/A; ph 08:30 BP 172 / 86; Pulse 110; Resp 18; Temp 98.3; Pulse Ox 99% on R/A; ph 09:45 BP 178 / 89; Pulse 114; Resp 18; Temp 98.2; Pulse Ox 99% on R/A; Pain 8/10; ph 03:30 Body Mass Index 26.63 (72.57 kg, 165.10 cm) lp1 Marquise Coma Score: 03:35 Eye Response: spontaneous(4). Verbal Response: oriented(5). Motor Response: obeys lp1 commands(6). Total: 15. 08:30 Eye Response: spontaneous(4). Verbal Response: oriented(5). Motor Response: obeys ph commands(6). Total: 15. 09:45 Eye Response: spontaneous(4). Verbal Response: oriented(5). Motor Response: obeys ph commands(6). Total: 15. Trauma Score (Adult): 03:35 Eye Response: spontaneous(1); Verbal Response: oriented(1); Motor Response: obeys lp1 commands(2); Systolic BP: > 89 mm Hg(4); Respiratory Rate: 10 to 29 per min(4); Tipton Score: 15; Trauma Score: 12 04:45 Eye Response: spontaneous(1); Verbal Response: oriented(1); Motor Response: obeys lp1 commands(2); Systolic BP: > 89 mm Hg(4); Respiratory Rate: 10 to 29 per min(4); Tipton Score: 15; Trauma Score: 12 08:30 Eye Response: spontaneous(1); Verbal Response: oriented(1); Motor Response: obeys ph commands(2); Systolic BP: > 89 mm Hg(4); Respiratory Rate: 10 to 29 per min(4); Marquise Score: 15; Trauma Score: 12 09:45 Eye Response: spontaneous(1); Verbal Response: oriented(1); Motor Response: obeys ph commands(2); Systolic BP: > 89 mm Hg(4); Respiratory Rate: 10 to 29 per min(4); Tipton Score: 15; Trauma Score: 12 ED Course: 03:35 Thermoregulation: warm blanket given to patient. lp1 03:40 Patient arrived in ED. bp1 03:45 Chalo Barrera MD is Attending Physician. tw4 03:45 Missed attempt(s): 20 gauge in right antecubital area. Patient maintains SpO2 lp1 saturation greater than 95% on room air. 03:55 Jackie Lomas RN is Primary Nurse. lp1 03:59 Radiology exam delayed due to ER staff is currently attempting to start a line for kw1 medications. Per charge nurse - patient needs pain medication prior to being transported to the CT Dept. for her exam. They will call when patient is ready. 04:02 Triage completed. lp1 04:03 Arm band placed on right wrist. lp1 04:10 Patient has correct armband on for positive identification. Bed in low position. Call lp1 light in reach. Side rails up X2. media monitor on. Pulse ox on. NIBP on. 04:15 Inserted 18 gauge 10 cm midline to right upper brachial vein on second attempt. Line fc with good blood return and flushes well. 04:44 CT Head C Spine In Process Unspecified. EDMS 05:22 XRAY Chest (1 view) In Process Unspecified. EDMS 05:23 XRAY Pelvis In Process Unspecified. EDMS 05:26 Initiated transfer with Emilie at [facility] regarding pt transfer. Emilie stated tt3 that she would call back. 05:42 Emilie called back and informed me that the transfer request was declined due to tt3 them being at capacity. 06:13 Initiated transfer at Tali Garza RN, Community Engagement Representative at [facility] tt3 regarding pt transfer. Tali stated she would work on the case and call back. 06:20 Abdalla cath inserted, using sterile technique, 16 Fr., by id, balloon inflated, to lp1 gravity drainage. 06:24 No provider procedures requiring assistance completed. lp1 06:28 Tali from [facility] called back to verify whether or not we had ortho. We do not tt3 have ortho today and Tali was reinformed on that. Tali stated she would call back. 07:26 pt accepted in transfer at [facility] by dr Jackie Segovia, admin approval bd given by tali garza. 10:03 Patient transferred, IV remains in place. ph Administered Medications: 04:23 Drug: fentaNYL (PF) 50 mcg Route: IVP; Site: right upper arm; lp1 05:15 Follow up: Response: No adverse reaction lp1 06:41 Drug: fentaNYL (PF) 50 mcg {Note: RASS 0.} Route: IVP; Site: right upper arm; lp1 07:05 Follow up: Response: No adverse reaction ph 09:15 Drug: fentaNYL (PF) 50 mcg Route: IVP; Site: right upper arm; ph 10:01 Follow up: Response: No adverse reaction ph 09:59 Drug: fentaNYL (PF) 50 mcg Route: IVP; Site: right upper arm; ph 10:01 Follow up: Response: No adverse reaction; RASS: Alert and Calm (0) ph 10:00 CANCELLED (Duplicate Order): fentaNYL (PF) 25 mcg IVP once; RASS on ADMIN: Combtv4, ph Very Agttd3, Agttd2, Rstlss1, AlertClm0, Drwsy-1, Lt Sdtn-2, Mod Sdtn-3, Dp Sdtn-4, UnArsble-5 Intake: 06:51 PO: 0ml; Total: 0ml. lp1 Output: 06:51 Urine: 300ml (Abdalla); Total: 300ml. lp1 Outcome: 08:09 ER care complete, transfer ordered by . tw4 10:03 Transferred by [facility] [place]. to [facility], [facility], Transfer form ph completed. X-rays sent w/ patient. 10:03 Condition: stable 10:03 Instructed on the need for transfer. 10:03 Patient's length of stay was not longer than 2 hours. ph 10:03 Patient left the ED. ph Signatures: Dispatcher [employer] EDMS Kandace Hadley Felicia, RN RN fc Jackie Lomas RN RN lp1 Mila Hung RN RN ph Lisbeth Cobb kw1 Chalo Barrera MD MD tw4 Vilma, Riddhi bp1 Monica, Konstantin tt3 Corrections: (The following items were deleted from the chart) 03:57 03:56 Radiology exam delayed due to kw1 kw1 04:39 03:30 Acuity: THADDEUS 3 lp1 lp1 10:00 09:15 fentaNYL (PF) 25 mcg IVP in right antecubital ph ph
--- NOTE | 2019-11-23 08:09 | EDPHYS ---
Physician Documentation [facility] Name: Arianne Ambriz Age: 74 yrs Sex: Female : 1945 Arrival Date: 11/23/2019 Time: 03:40 Bed 5 Private MD: ED Physician Chalo Barrera HPI: 11/22 03:54 This 74 yrs old Female presents to ER via Unassigned with complaints of left tw4 hip pain after fall. 03:54 The patient or guardian reports decreased range of motion, deformity, an injury. that tw4 occurred at home. The complaints affect the left hip. Onset: The symptoms/episode began/occurred just prior to arrival, today. Modifying factors: The symptoms are alleviated by remaining still, the symptoms are aggravated by any movement. Associated signs and symptoms: Loss of consciousness: the patient experienced no loss of consciousness. Severity of symptoms: At their worst the symptoms were moderate, in the emergency department the symptoms. The patient has not experienced similar symptoms in the past. Historical: - Allergies: 04:06 butorphanol; lp1 04:06 Ciprofloxacin (DIZZINESS); lp1 04:06 Erythromycin; lp1 04:06 GABAPENTIN; lp1 04:06 Levaquin; lp1 04:06 Neurontin; lp1 04:06 Stadol; (cardiac arrest); lp1 04:06 TETRACYCLINES; lp1 - Home Meds: 04:06 oxycodone 15 mg Oral tab 1 tab every 6 hours [Active]; Eliquis 5 mg oral tab 1 tab 2 lp1 times per day [Active]; tizanidine 4 mg oral cap 1 cap 3 times per day [Active]; - PMHx: 04:06 Arthritis; Back pain; William hip bursitis; Chronic pain; Complication of anesthesia; DVT; lp1 GERD; Hypertension; - PSHx: 04:06 Back fx x3; shoulder sx; Knee surgery; R hip sx; lp1 - Immunization history:: Adult Immunizations up to date. - Social history:: Smoking status: Patient denies any tobacco usage or history of. - Immunization history: Last tetanus immunization: unknown. ROS: 03:54 Constitutional: Negative for fever, chills, and weight loss, Eyes: Negative for injury, tw4 pain, redness, and discharge, Cardiovascular: Negative for chest pain, palpitations, and edema, Respiratory: Negative for shortness of breath, cough, wheezing, and pleuritic chest pain, Abdomen/GI: Negative for abdominal pain, nausea, vomiting, diarrhea, and constipation, Back: Negative for injury and pain, Skin: Negative for injury, rash, and discoloration, Neuro: Negative for headache, weakness, numbness, tingling, and seizure. 03:54 MS/extremity: Positive for injury or acute deformity, decreased range of motion, deformity, tenderness. Exam: 03:54 Constitutional: This is a well developed, well nourished patient who is awake, alert, tw4 and in no acute distress. Head/Face: Normocephalic, atraumatic. Chest/axilla: Normal chest wall appearance and motion. Nontender with no deformity. No lesions are appreciated. Cardiovascular: Regular rate and rhythm with a normal S1 and S2. No gallops, murmurs, or rubs. Normal PMI, no JVD. No pulse deficits. Respiratory: Lungs have equal breath sounds bilaterally, clear to auscultation and percussion. No rales, rhonchi or wheezes noted. No increased work of breathing, no retractions or nasal flaring. Abdomen/GI: Soft, non-tender, with normal bowel sounds. No distension or tympany. No guarding or rebound. No evidence of tenderness throughout. Neuro: Awake and alert, GCS 15, oriented to person, place, time, and situation. Cranial nerves II-XII grossly intact. Motor strength 5/5 in all extremities. Sensory grossly intact. Cerebellar exam normal. Normal gait. 03:54 Musculoskeletal/extremity: Extremities: noted in the left hip: decreased ROM, deformity. Vital Signs: 03:30 BP 158 / 79; Pulse 105; Resp 19; Temp 98.2(O); Pulse Ox 100% on R/A; Weight 72.57 kg lp1 (R); Height 5 ft. 5 in. (165.10 cm); Pain 10/10; 04:00 BP 159 / 72; Pulse 105; Resp 20; Pulse Ox 100% on R/A; lp1 04:45 BP 154 / 80; Pulse 103; Resp 20; Pulse Ox 97% on R/A; lp1 05:30 BP 175 / 84; Pulse 104; Resp 17; Pulse Ox 100% on R/A; lp1 06:30 BP 156 / 80; Pulse 107; Resp 20; Pulse Ox 99% on R/A; lp1 07:26 BP 163 / 81; Pulse 104; Resp 18; Temp 97.8; Pulse Ox 98% on R/A; ph 08:30 BP 172 / 86; Pulse 110; Resp 18; Temp 98.3; Pulse Ox 99% on R/A; ph 09:45 BP 178 / 89; Pulse 114; Resp 18; Temp 98.2; Pulse Ox 99% on R/A; Pain 8/10; ph 03:30 Body Mass Index 26.63 (72.57 kg, 165.10 cm) lp1 Everett Coma Score: 03:35 Eye Response: spontaneous(4). Verbal Response: oriented(5). Motor Response: obeys lp1 commands(6). Total: 15. 08:30 Eye Response: spontaneous(4). Verbal Response: oriented(5). Motor Response: obeys ph commands(6). Total: 15. 09:45 Eye Response: spontaneous(4). Verbal Response: oriented(5). Motor Response: obeys ph commands(6). Total: 15. Trauma Score (Adult): 03:35 Eye Response: spontaneous(1); Verbal Response: oriented(1); Motor Response: obeys lp1 commands(2); Systolic BP: > 89 mm Hg(4); Respiratory Rate: 10 to 29 per min(4); Everett Score: 15; Trauma Score: 12 04:45 Eye Response: spontaneous(1); Verbal Response: oriented(1); Motor Response: obeys lp1 commands(2); Systolic BP: > 89 mm Hg(4); Respiratory Rate: 10 to 29 per min(4); Marquise Score: 15; Trauma Score: 12 08:30 Eye Response: spontaneous(1); Verbal Response: oriented(1); Motor Response: obeys ph commands(2); Systolic BP: > 89 mm Hg(4); Respiratory Rate: 10 to 29 per min(4); Marquise Score: 15; Trauma Score: 12 09:45 Eye Response: spontaneous(1); Verbal Response: oriented(1); Motor Response: obeys ph commands(2); Systolic BP: > 89 mm Hg(4); Respiratory Rate: 10 to 29 per min(4); Marquise Score: 15; Trauma Score: 12 MDM: 03:45 Patient medically screened. 08:10 Data reviewed: vital signs, nurses notes, EMS record. Data interpreted: Pulse oximetry: Interpretation: normal. Counseling: I had a detailed discussion with the patient and/or guardian regarding: the historical points, exam findings, and any diagnostic results supporting the discharge/admit diagnosis, lab results, radiology results. 11/22 03:46 Order name: Basic Metabolic Panel; Complete Time: 05:30 11/22 05:31 Interpretation: Within normal limits. 11/22 03:46 Order name: CBC with Diff; Complete Time: 05:30 11/22 05:31 Interpretation: Normal except: RBC 3.84; HCT 27.3; MCV 71.2; HGB 8.7; MCH 22.7; MN% tw4 12.6; LYM% 11.7; RDW 15.9; PLT 151; MCHC 31.9. 11/22 03:46 Order name: Type And Screen; Complete Time: 05:30 11/22 05:31 Interpretation: Within normal limits. 11/22 03:46 Order name: PT-INR; Complete Time: 05:30 11/22 05:31 Interpretation: Normal except: PT 11.8. 11/22 03:46 Order name: Ptt, Activated; Complete Time: 05:30 11/22 05:31 Interpretation: Within normal limits: PTT 27.4. 11/22 03:46 Order name: Troponin (emerg Dept Use Only); Complete Time: 05:30 11/22 05:31 Interpretation: Within normal limits: TROPED < 0.02. 11/22 03:46 Order name: XRAY Chest (1 view) 11/22 03:46 Order name: XRAY Pelvis 11/22 03:46 Order name: CT Head C Spine 11/22 03:46 Order name: Labs collected and sent; Complete Time: 04:39 11/22 03:46 Order name: EKG; Complete Time: 03:47 11/22 04:12 Order name: EKG - Nurse/Tech; Complete Time: 05:37 lp1 08/25 06:23 Order name: Abdalla: Verbal order per Dr. Barrera; Complete Time: :23 lp1 EC:48 Rate is 105 beats/min. Rhythm is regular, Sinus tachycardia. QRS [place] is Normal. CA tw4 interval is normal. QRS interval is normal. QT interval is normal. T waves are Normal. No ST changes noted. Clinical impression: Sinus tachycardia. Interpreted by me. Reviewed by me. Administered Medications: 04:23 Drug: fentaNYL (PF) 50 mcg Route: IVP; Site: right upper arm; lp1 05:15 Follow up: Response: No adverse reaction lp1 06:41 Drug: fentaNYL (PF) 50 mcg {Note: RASS 0.} Route: IVP; Site: right upper arm; lp1 07:05 Follow up: Response: No adverse reaction ph 09:15 Drug: fentaNYL (PF) 50 mcg Route: IVP; Site: right upper arm; ph 10:01 Follow up: Response: No adverse reaction ph 09:59 Drug: fentaNYL (PF) 50 mcg Route: IVP; Site: right upper arm; ph 10:01 Follow up: Response: No adverse reaction; RASS: Alert and Calm (0) ph 10:00 CANCELLED (Duplicate Order): fentaNYL (PF) 25 mcg IVP once; RASS on ADMIN: Combtv4, ph Very Agttd3, Agttd2, Rstlss1, AlertClm0, Drwsy-1, Lt Sdtn-2, Mod Sdtn-3, Dp Sdtn-4, UnArsble-5 Disposition: 11/23/19 08:09 Transfer ordered to [facility]. Diagnosis is Intertrochanteric fracture of femur. - Reason for transfer: Higher level of care. - Accepting physician is Dr prutit. - Condition is Stable. - Problem is new. - Symptoms have improved. Signatures: Dispatcher [employer] EDMS Jackie Lomas RN RN lp1 Mila Hung RN RN Chalo Barrera MD MD tw4 Corrections: (The following items were deleted from the chart) 10:00 09:15 fentaNYL (PF) 25 mcg IVP once; RASS on ADMIN: Combtv4, Very Agttd3, Agttd2, ph Rstlss1, AlertClm0, Drwsy-1, Lt Sdtn-2, Mod Sdtn-3, Dp Sdtn-4, UnArsble-5 ordered. ph 10:00 09:15 fentaNYL (PF) 25 mcg IVP once; RASS on ADMIN: Combtv4, Very Agttd3, Agttd2, ph Rstlss1, AlertClm0, Drwsy-1, Lt Sdtn-2, Mod Sdtn-3, Dp Sdtn-4, UnArsble-5 given. ph 10:00 10:00 fentaNYL (PF) 25 mcg IVP once; RASS on ADMIN: Combtv4, Very Agttd3, Agttd2, ph Rstlss1, AlertClm0, Drwsy-1, Lt Sdtn-2, Mod Sdtn-3, Dp Sdtn-4, UnArsble-5 ordered. ph 10:03 08:09 11/23/2019 08:09 Transfer ordered to [facility]. ph Diagnosis is Intertrochanteric fracture of femur. Reason for transfer: Higher level of care. Accepting physician is Dr pruitt. Condition is Stable. Problem is new. Symptoms have improved. tw4
--- NOTE | 2019-11-23 08:12 | RAD REPORT ---
EXAM DESCRIPTION: Sarmad Single View11/23/2019 5:22 am CLINICAL HISTORY: Chest pain COMPARISON: 2018 FINDINGS: The lungs appear clear of acute infiltrate. The heart is normal size IMPRESSION: No acute abnormalities displayed
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
--- NOTE | 2019-11-23 10:44 | EKG ---
Test Date: 2019-11-23 Test Time: 05:07:37 Credit Analyst: SARA MEASUREMENT RESULTS: Intervals: Rate: 105 HI: 170 QRSD: 74 QT: 332 QTc: 438 [place]: P: 55 HI: 170 QRS: 12 T: 47 INTERPRETIVE STATEMENTS: Sinus tachycardia Otherwise normal ECG Compared to ECG 12/09/2017 09:00:02 No significant changes Electronically Signed On 11-23-19 10:43:17 CDT by Betito Ramon
[2019-11-27 12:45] VITALS: O2SAT 99
[2019-11-27 12:46] VITALS: BP 178/89; TEMP 98.2
== END 2019-11-23 10:03 | disposition short-term general hospital (02) ==
LOC: ER 03:33
DX: S72.142A Displaced intertrochanteric fracture of left femur, initial encounter for closed fracture (principal); I82.409 Acute embolism and thrombosis of unspecified deep veins of unspecified lower extremity; W01.198A Fall on same level from slipping, tripping and stumbling with subsequent striking against other object, initial encounter; Y93.89 Activity, other specified; Y92.012 Bathroom of single-family (private) house as the place of occurrence of the external cause; Z88.1 Allergy status to other antibiotic agents; Z88.6 Allergy status to analgesic agent
CPT/HCPCS: 93005; 85025; 80048; 36415; 86900; 86850; 85610; 86901; 85730; 84484; 70450; 72125; 71045; 72170; 51702; 96374; 99285; J3010 ×3; G0390

== ENCOUNTER 2020-09-15 20:07 | Emergency (ER) | payer OTHER, BC ==
--- OUTSIDE RECORDS SUMMARY | 2020-09-15 20:16 | XMS REPORT | Continuity of Care Document ---
:1945 Author Organization [facility] t Address [address] [place] [address] Care Team Providers Name Role Phone Asked, Pcp Primary Care Physician Unavailable Afshin GÓMEZ, T Attending Clinician Unavailable Elisa ALVAREZ, H. Attending Clinician King RICO Attending Clinician Unavailable Cornell MCMULLEN Attending Clinician Unavailable CECIL OROZCO Attending Clinician Unavailable Cecil Orozco MD Attending Clinician Unavailable Ju Attending Clinician Ernesto ALVAREZ, RArlin Attending Clinician MARIELLE LEE Attending Clinician Unavailable Marielle Lee MD Attending Clinician Pat Gruber MD Attending Clinician Elisa ALVAREZ, Chitra Attending Clinician Carissa Encarnacion MD Attending Clinician Uvaldo MCMULLEN Attending Clinician Unavailable Ines ALVAREZ, Rene Attending Clinician Landon MCMULLEN Attending Clinician Unavailable MD Annette ESTRADA Attending Clinician Unavailable NATALIE Attending Clinician Unavailable RAEANN STEWARD Attending Clinician Unavailable CECIL OROZCO Admitting Clinician Unavailable GRUBER, PAT Admitting Clinician Unavailable MD Annette ESTRADA Admitting Clinician Unavailable NATALIE Admitting Clinician Unavailable RAEANN STEWARD Admitting Clinician Unavailable Payers Payer Name Policy Type Policy Effective Date Expiration Date Sour ce Number MEDICAREMEDICARE PART [id number] 2008 alanis A AND 00:00:00 [employer] [id number] 2008[place] [id number] 2008 [place] MEDICARE 2 00:00:00 [employer] [id number] 2008-[facility] MEDICAREMEDIC[facility] A [id number] [facility] [id number] 2008- 00:00:00 - M edical PresentMedicare Center BLUE CROSS/BLUE [id number] [address] [facility] ukes SHIELDBCBS INDEMNITY 2 00:00:00 - Me dical [facility] [id number] [id number], [place] [id number] Problems Condition Condition Condition Status Onset Resolution Last Treating Co mments Source Name Details Category Date Date Treatment Clinician Date Iron Iron Disease Active [facility] deficiency deficiency 3-10 [facility] - anemia anemia 00:00: Medical 00 Center Chronic Chronic Disease Active [facility] pain pain 3-03 [facility] syndrome syndrome 00:00: Medica l 00 Center Fracture, Fracture, Disease Active [facility] intertroch intertroch 8-25 [facility] k[facility] - anteric, anteric, 00:00: Medica l left left 00 Center femur, femur, closed, closed, initial initial encounter encounter Other Other Disease Active [place] chronic chronic 6-18 [facility]i pain pain 00:00: st 00 Femur Femur Disease Active [place] fracture fracture 5-26 Method i 00:00: st 00 Hyponatrem Hyponatrem Disease Active [facility] ia ia 5- Methodi 00:00: st 00 Hip Hip Disease Active [place] fracture fracture 5-22 Method i 00:00: st 00 Closed Closed Disease Active [place] displaced displaced 5-22 [facility] [place] intertroch intertroch 00:00: st anteric anteric 00 fracture fracture of right of right femur femur 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 6-14 Meth [place] [...] s - spine spine 00:00: Medical 00 Ubly 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 11-29 [facility] - malnutriti malnutriti 00:00: Me dical on, severe on, severe 00 Ce nter Acute low Acute low Disease Active [facility] back pain back pain 11-29 Luke s - 00:00: Medical 00 Ubly Physical Physical Disease Active [facility] t deconditio deconditio 11-29 [facility] - rylee rylee 00:00: Medical 00 Ubly Chest pain Chest pain Disease Active [facility] 11-29 [facility] - 00:00: Medical 00 Ubly Chronic Chronic Disease Active [place] prescripti prescripti 8-10 Me thodi on opiate on opiate 00:00: st use use 00 Bilateral Bilateral Disease Active [facility] hip hip 8-10 [facility] bursitis bursitis 00:00: st 00 Chronic Chronic Disease Active [place] cervical cervical 7-11 Method i radiculopa radiculopa 00:00: st thy thy 00 Scoliosis Scoliosis Disease Active [facility] 7-11 [facility] 00[facility]00: st 00 Myalgia Myalgia Disease Active [place] 7-11 Methodi 00:00: [facility] 00 Back pain Back pain Disease Active [facility] 3-01 [facility]i 00:00: st 00 Cervicalgi Cervicalgi Disease Active [place] a 05-29 [facility]i 00:00: st 00 Lumbar Lumbar Disease Active [place] radicular radicular 3- [facility] [place] pain pain 00:00: st 00 Hip pain, Hip pain, Disease Active [facility] chronic chronic 05-29 Methodi 00:00: st 00 Lumbar Lumbar Disease Active [place] disc disc 05-29 Methodi disease disease 00:00: st 00 HTN HTN Disease Active Overview: [facility] (hypertens (hypertens bp St[facility] kes - ion) ion) controlle Medical d with Center medicatio n x 3 yrs Displaced Displaced Disease Resolve 2020-06-05 2020-06-[address] subtrochan subtrochan d 3 00:00:00 15:48:19 [facility] - teric teric 00:00: Medical fracture fracture 00 Center of left of left femur, femur, subsequent subsequent encounter encounter for closed for closed fracture fracture with with nonunion nonunion Closed Closed Disease Resolve 2020-06-05 2020-06-[address] displaced displaced d 3 00:00:00 15:48:18 [facility] - intertroch intertroch 00:00: Me dical anteric anteric 00 Center 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 VTE VTE Disease Resolve 2020-06-05 2020-06-[address] (venous (venous d 3 00:00:00 15:48:16 Luke [facility] - thromboemb thromboemb 00:00: Me dical olism) olism) 00 Center Allergies, Adverse Reactions, Alerts Allergy Allergy Status Severity Reaction(s) Onset Inactive Treating Comm ents Source Name Type Date Date Clinician Ciproflo Drug Active Other (See dizziness [facility] xacin Allergy Comments) 3-03 [facility] - Hcl 00:00: Medical 00 Center Ciproflo Propensi Active Other (See 2018-03 [place] xacin ty to Comments) 2-17 Methodi adverse 00:00: st reaction 00 s to drug Doxycycl Propensi Active Other (See 2015-03 Abdominal [place] ine ty to Comments) 2-12 pain [facility] Hyclate adverse 00:00: st reaction 00 s to drug Erythrom Propensi Active Nausea Only 2015- H oufred ycin ty to 05-12 Methodi adverse 00:00: st reaction 00 s to drug Gabapent Propensi Active Other (See 2015-03 disorient [place]oney in ty to Comments) 05-12 ation Methodi adverse 00:00: st reaction 00 s to drug Glycopyr Propensi Active Nausea Only 2016- H oufred rolate ty to 05-12 Methodi adverse 00:00: st reaction 00 s to drug Levoflox Propensi Active Nausea Only 2016- H uche acin ty to 05-12 Methodi adverse 00:00: st reaction 00 s to drug Moxiflox Propensi Active Nausea Only 2015- H uche acin ty to 05-12 Methodi adverse 00:00: st reaction 00 s to drug Nabumeto Propensi Active Nausea Only 2015- H uche ne ty to 05-12 Methodi adverse 00:00: st reaction 00 s to drug Tolterod Propensi Active Nausea Only 2015-03 H uche ine ty to 05-12 Methodi adverse 00:00: st reaction 00 s to drug Gabapent Drug Active Other (See 2014-[address] in Intolera Comments) 0-06 ation [facility] - nce 00:00: Medical 00 Center Nabumeto Drug Active Nausea Only 2014-[address] [facility] [facility] ne Intolera 0-06 [facility] - nce 00:00: Medical 00 Ubly Moxiflox Drug Active Nausea Only [facility] acin Intolera 3-13 [facility] - nce 00:00: Medical 00 Center Tolterod Drug Active Nausea Only [facility] ine Intolera 3-13 [facility] - nce 00:00: Medical 00 Center Doxycycl Drug Active Other (See Abdominal [facility] ine Intolera Comments) 3-13 pain [facility] - Hyclate nce 00:00: Medical 00 Center Erythrom Drug Active Nausea Only [facility] ycin Intolera 3-13 [facility] - nce 00:00: Medical 00 Center Levoflox Drug Active Nausea Only [facility] acin Intolera 3-13 [facility] - nce 00:00: Medical 00 Center Glycopyr Drug Active Nausea Only [facility] rolate Intolera 3-13 [facility] - nce 00:00: Medical 00 Ubly Butorpha Drug Active Anaphylaxis [facility] nol Allergy 3-12 [facility] - Tartrate 00:00: Medical 00 Center Adhesive Propensi Active Itching, Itching & [place] Tape-Jada ty to Swelling 8-20 swellingI Met hodi icones adverse 00:00: tching & st reaction 00 swelling s to drug Butorpha Propensi Active Anaphylaxis, "brings [place] nol ty to Palpitations 8-20 on [facility] [place] Tartrate adverse 00:00: cardiac st reaction 00 arrest" s to drug Clarithr Propensi Active Palpitations High [place] omycin ty to 8-20 heart Methodi adverse 00:00: rate st reaction 00 s to drug Stadol Adverse Active anaphylaxis [facility] Reaction [facility] Neuronti Adverse Active anaphylaxis [facility] n Reaction [facility] Ciproflo Adverse Active Info Not [facility] xacin Reaction Available [facility] Family History Family Member Diagnosis Comments Start Date Stop Date Source Natural father Cancer [place] [facility]od[facility] Natural mother Heart attack [place] [employer] Natural mother Hypertension [place] [employer] Natural mother Osteoporosis [place] [facility] Paternal grandfather Stroke [place] Paternal grandmother Stroke [place] Natural sister Diabetes [facility] thodist Social History Social Habit Start Date Stop Date Quantity Comments Source History of tobacco Cigarette Smoker [place] use [facility] [employer] Sex Assigned [facility] Tobacco use and 2020-06-02 2020-06-02 Never used [facility] - exposure 00:00:00 00:00:00 [facility] Alcohol intake 2020-06-02 2020-06-02 Current [facility] es - 00:00:00 00:00:00 non-drinker of Medical Ce nter alcohol (finding) Tobacco Comment 2020-05-30 2020-05-30 quit ~ [facility] - 00:00:00 00:00:00 [facility] Cigarettes smoked 2019-08-25 2019-08-25 [place] current (pack per 00:00:00 00:00:[address] day) - Reported Cigarette 2019-08-25 2019-08-25 [place] pack-years 00:00:00 00:00:00 [facility] Smoking Status Start Date Stop Date Source Former smoker 2020-06-02 00:00:00 2020-06-02 00:00:00 [facility] Medications Ordered Filled Start Stop Current Ordering Indication Dosage Frequency Signature Comments Components Source Medication Medication Date Date Medication? Clinician (SIG) Name Name oxyCODone 2020- No chronic 20mg Q.25D Take 1 [place] (ROXICODONE 6-11 06-03 pain tablet (20 M ethodi ) 20 MG 00:00: 00:00 mg total) st tablet 00 :00 by mouth 4 (four) times a day for 30 days .chronic pain. oxyCODone 2020- Yes chronic 20mg Q.25D Take 1 [place] (ROXICODONE 6-10 07-10 pain tablet (20 M ethodi ) 20 MG 00:00: 23:59 mg total) st tablet 00 :00 by mouth 4 (four) times a day for 30 days .chronic pain. oxyCODone 2020- No chronic 20mg Q.25D Take 1 [place] (ROXICODONE 6-10 06-07 pain tablet (20 M ethodi ) 20 MG 00:00: 00:00 mg total) st tablet 00 :00 by mouth 4 (four) times a day for 30 days .chronic pain. tiZANidine Yes Back pain, TAKE 1 [place] (ZANAFLEX) 6-03 unspecified TABLET(4 Methodi 4 MG tablet 00:00: back MG) BY st 00 location, MOUTH unspecified EVERY 8 back pain HOURS laterality, NEEDED FOR unspecified MUSCLE chronicity SPASMS oxyCODone 2020- No chronic 20mg Q.25D Take 1 [place] (ROXICODONE 5-12 05-10 pain tablet (20 M ethodi ) 20 MG 00:00: 00:00 mg total) st tablet 00 :00 by mouth 4 (four) times a day for 30 days .chronic pain. Max Daily Amount: 80 mg oxyCODone Yes chronic 20mg Q.25D Take 1 [place] (ROXICODONE 5-11 pain tablet (20 Me thodi ) 20 MG 00:00: mg total) st tablet 00 by mouth 4 (four) times a day for 30 days .chronic pain. Max Daily Amount: 80 mg oxyCODone 0 Yes chronic 20mg Q.25D Take 1 [place] (ROXICODONE 4-12 pain tablet (20 Me thodi ) 20 MG 00:00: mg total) st tablet 00 by mouth 4 (four) times a day for 30 days .chronic pain. Max Daily Amount: 80 mg tiZANidine 2020- No Back pain, TAKE 1 [place]oney (ZANAFLEX) 4-12 06-03 unspecified TABLET(4 Methodi 4 MG tablet 00:00: 00:00 back MG) BY st 00 :00 location, MOUTH unspecified EVERY 8 back pain HOURS laterality, NEEDED FOR unspecified MUSCLE chronicity SPASMS oxyCODone 2020- No chronic 20mg Q4H Take 1 [place] (ROXICODONE 3-19 03-16 pain tablet (20 M ethodi ) 20 MG 00:00: 00:00 mg total) st tablet 00 :00 by mouth every 4 (four) hours as needed for moderate pain for up to 30 days .chronic pain. oxyCODone 2020- No chronic 20mg Q6H Take 1 [place] (ROXICODONE 3-19 03-15 pain tablet (20 M ethodi ) 20 MG 00:00: 00:00 mg total) st tablet 00 :00 by mouth every 6 (six) hours as needed for moderate pain for up to 30 days .chronic pain. Max Daily Amount: 80 mg oxyCODone 2020- No chronic 20mg Q4H Take 1 [place] (ROXICODONE 3-15 03-16 pain tablet (20 M ethodi ) 20 MG 00:00: 00:00 mg total) st tablet 00 :00 by mouth every 4 (four) hours as needed for moderate pain for up to 30 days .chronic pain. nitroglycer Yes .4mg Place 0.[address] in 3-10 mg under [facility] - (NITROSTAT) 17:15: the tongue Medical 0.4 MG SL 46 every 5 Center tablet (five) minutes as needed. tiZANidine Yes muscle 4mg Take [address] (ZANAFLEX) 3-10 spasm by mouth Luke s - 4 MG tablet 17:15: every 8 Med ical 46 (eight) Center hours as needed. polyethylen 17g QD Take [address] e glycol 06-07 by mouth [facility] - (GLYCOLAX) 00:00: 23:59 every Medic al 17 gram 00 :00 morning Center packet for 7 days. oxyCODONE 2020- No 20mg Take [address] 20 mg Tab 06-07 by mouth [facility] - 00:00: 23:59 every 4 Medical 00 :00 (four) Center hours as needed for up to 7 days. Max Daily Amount: 120 mg oxyCODONE 2020- No 20mg Take [address] (ROXICODONE 06-06 by mouth Kamilla es - ) 30 MG 13:23: 00:00 every 6 Medica l immediate 00 :00 (six) Center release hours as tablet needed for Pain . ferrous No 325mg Q.5D Take [address] sulfate 325 06-06 tablet [facility] - (65 FE) MG 00:00: 23:59 (325 mg Med ical tablet 00 :00 total) by Center mouth 2 (two) times daily for 30 days. oxyCODONE No 20mg Take 1 [facility] (OxyCONTIN) 06-06 tablet (20 L ukes - 20 MG 12 hr 00:00: 00:00 mg total) Medical tablet 00 :00 by mouth Center every 12 (twelve) hours for 7 days. Max Daily Amount: 40 mg oxyCODONE 2020- No 20mg Take [address] 20 mg Tab 06-06 by mouth [facility] - 00:00: 00:00 every 4 Medical 00 :00 (four) Center hours as needed for up to 7 days. Max Daily Amount: 120 mg esomeprazol 2020- No 40mg QD Take [address] [facility] e (NEXIUM) 05-30 by mouth Luke s - 40 MG 12:34: 00:00 daily. Medical capsule 49 :00 Center apixaban No hip surgery 5mg Q.5D Take [address] [facility] (ELIQUIS) 5 05-30 deep vein by mouth 2 [facility] - mg Tab 12:34: 00:00 thrombosis (two) Med ical tablet 49 :00 prevention times Center daily. fluticasone 2020- No 1{spray QD [address] [facility] (FLONASE) 05-30 } Nasal [facility] - 50 12:34: 00:00 route Medical mcg/actuati 37 :00 daily. Center on nasal spray tiZANidine 2020- No Back pain, TAKE 1 Toney (ZANAFLEX) 05-22 04-12 unspecified TABLET(4 Methodi 4 MG tablet 00:00: 00:00 back MG) BY st 00 :00 location, MOUTH unspecified EVERY 8 back pain HOURS laterality, NEEDED FOR unspecified MUSCLE chronicity SPASMS oxyCODone 2020- No chronic 20mg Q6H Take 1 [place] (ROXICODONE 05-19 03-15 pain tablet (20 M ethodi ) 20 MG 00:00: 00:00 mg total) st tablet 00 :00 by mouth every 6 (six) hours as needed for moderate pain for up to 30 days .chronic pain. Max Daily Amount: 80 mg oxyCODone 2020- No 20mg Q4H Take 20 mg [place] (ROXICODONE 04-21 03-17 by mouth Met hodi ) 20 MG 00:00: 23:[address] tablet 00 :00 (four) hours. oxyCODone 2020- No chronic 20mg Q6H Take 1 [place] (ROXICODONE 04-21 03-15 pain tablet (20 M ethodi ) 20 MG 00:00: 00:00 mg total) st tablet 00 :00 by mouth every 6 (six) hours as needed for moderate pain for up to 30 days .chronic pain. Max Daily Amount: 80 mg tiZANidine 2020- No Back pain, TAKE 1 Feng (ZANAFLEX) 04-21-19 unspecified TABLET(4 Methodi 4 MG tablet 00:00: 00:00 back MG) BY st 00 :00 location, MOUTH unspecified EVERY 8 back pain HOURS laterality, NEEDED FOR unspecified MUSCLE chronicity SPASMS oxyCODone 2019-03- No chronic 20mg Q4H Take 1 [place] (ROXICODONE 2-20 pain tablet (20 M ethodi ) 20 MG 00:00: 00:00 mg total) st tablet 00 :00 by mouth every 4 (four) hours as needed for moderate pain for up to 30 days .chronic pain. Max Daily Amount: 120 mg tiZANidine 2019-03- No TAKE 1 [place] (ZANAFLEX) 05-01 TABLET(4 [facility] [place] 4 MG tablet 00:00: 00:00 MG) BY st 00 :00 MOUTH EVERY 8 HOURS NEEDED FOR MUSCLE SPASMS tiZANidine 2019-03- No TAKE 1 [place] (ZANAFLEX) 05-01 TABLET(4 [place] 4 MG tablet 00:00: 00:00 MG) BY st 00 :00 MOUTH EVERY 8 HOURS NEEDED FOR MUSCLE SPASMS oxyCODone 2019-03- No chronic 20mg Q4H Take 1 [place] (ROXICODONE 1-20 pain tablet (20 M ethodi ) 20 MG 00:00: 00:00 mg total) st tablet 00 :00 by mouth every 4 (four) hours as needed for moderate pain for up to 30 days .chronic pain. Max Daily Amount: 120 mg tiZANidine 2019-03- No 4mg Q8H Take 1 [place] (ZANAFLEX) 04-04 tablet (4 Met hodi 4 MG tablet 00:00: 00:00 mg total) st 00 :00 by mouth every 8 (eight) hours as needed for muscle spasms for up to 30 days. oxyCODone 2019-03- No chronic 20mg Q4H Take 1 [place] (ROXICODONE 0-28 -12 pain tablet (20 M ethodi ) 20 MG 00:00: 00:00 mg total) st tablet 00 :00 by mouth every 4 (four) hours as needed for moderate pain for up to 30 days .chronic pain. Max Daily Amount: 120 mg tiZANidine 2019-03- No TAKE 1 [place] (ZANAFLEX) 0-12 10-26 TABLET(4 [place] 4 MG tablet 00:00: 00:00 MG) BY st 00 :00 MOUTH EVERY 8 HOURS NEEDED FOR MUSCLE SPASMS tiZANidine 2019-03- No TAKE 1 [place] (ZANAFLEX) 0-12 10-12 TABLET(4 [place] 4 MG tablet 00:00: 00:00 MG) BY st 00 :00 MOUTH EVERY 8 HOURS NEEDED FOR MUSCLE SPASMS oxyCODone 2019- No chronic 20mg Q4H Take 1 Ho alanis (ROXICODONE 12-26 11-12 pain tablet (20 M ethodi ) 20 MG 00:00: 00:00 mg total) st tablet 00 :00 by mouth every 4 (four) hours as needed for moderate pain for up to 30 days .chronic pain. Max Daily Amount: 120 mg oxyCODone 2019- No chronic 20mg Q4H Take 1 Regan thapa (ROXICODONE 12-26 10-23 pain tablet (20 M ethodi ) 20 MG 00:00: 00:00 mg total) st tablet 00 :00 by mouth every 4 (four) hours as needed for moderate pain for up to 30 days .chronic pain. Max Daily Amount: 120 mg cholecalcif 2020- No Age-related 2000U QD Take [address] [facility] carl 2,000 11-29 osteoporosi tablet [facility] - unit Tab 00:00: 00:00 s with (2,000 Medi guillermo 00 :00 current Units Center pathologica total) by l fracture, mouth initial daily. encounter oxyCODONE 2019- No pain 20mg Take [address] 20 mg Tab 11-28 by mouth 4 [place] es - 12:18: 00:00 (four) Medical 56 :00 times Center daily as needed (pain) . oxyCODONE 2020- No Chronic 30mg Take [address] (ROXICODONE 11-28 pain tablet (30 L ukes - ) 30 MG 00:00: 00:00 syndrome mg total) Medical immediate 00 :00 by mouth Center release every 4 tablet (four) hours as needed (moderate to severe pain). Max Daily Amount: 180 mg ferrous 2020- No Iron 325mg Take [address] [facility] sulfate 325 11-28 deficiency tablet [facility] - (65 FE) MG 00:00: 00:00 anemia, (325 mg Medical tablet 00 :00 unspecified total) by C enter iron mouth 2 deficiency (two) anemia type times daily with breakfast and dinner. polyethylen 17g Take [address] e glycol 11-28 by mouth [facility] - (GLYCOLAX) 00:00: 00:00 daily as Me dical 17 gram 00 :00 needed Center packet (constipat ion). pregabalin Chronic 25mg [id number] Take [address] [facility] (LYRICA) 25 11-28 pain [id number] capsule [facility] - MG capsule 00:00: 00:00 syndrome 3D (25 mg Medical 00 :00 total) by Center mouth 3 (three) times daily. Max Daily Amount: 75 mg senna 17.2mg QD Take [address] (SENOKOT) 11-28 tablets [facility] - 8.6 mg 00:00: 00:00 (17.2 mg Medica l tablet 00 :00 total) by Center mouth nightly. acetaminoph Chronic 650mg Q.[id number] Take [address] [facility] en 11-28 pain [id number] tablets [facility] - (TYLENOL) 00:00: 23:59 syndrome 3D (650 mg Medical 325 MG 00 :00 total) by Center tablet mouth 3 (three) times daily for 7 days. cefdinir Urinary 300mg Take [address] (OMNICEF) 11-28 tract capsule [facility] - 300 MG 00:00: 23:59 infection (300 mg Me dical capsule 00 :00 associated total) by C enter with mouth indwelling every 12 urethral (twelve) catheter, hours for initial 5 days. encounter (HCC) hydrochloro No 25mg QD Take [address] thiazide 8- 08-25 by mouth [facility] - (HYDRODIURI 13:00: 00:00 daily. Med ical L) 25 MG 24 :00 Center tablet HYDROcodone No 1{tbl} Take [address] -acetaminop 8-25 08-25 tablet by Stacy kimmy frost (NORCO 13:00: 00:00 mouth Medic al 5-325) 18 :00 every 6 Center 5-325 mg (six) per tablet hours as needed. sucralfate 2020-0 2020- No 1g Take [address] (CARAFATE) 11-22 by mouth Luke s - 1 g tablet 13:00: 00:00 as needed M edical 08 :00 . Ubly clidinium-c 2019- No 1{capsu Q.5D Take [address] hlordiazepo 11-22 le} capsule by Sherri lagos 12:59: 00:00 mouth 2 Medical (LIBRAX) 56 :00 (two) Center 5-2.5 mg times per capsule daily. cetirizine No 10mg QD Take [address] (ZYRTEC) 10 11-22 by mouth Kamilla es - MG tablet 12:59: 00:00 daily. Medic al 53 :00 Ubly atenolol No 25mg QD Take [address] (TENORMIN) 11-22 by mouth Luke s - 50 MG 12:59: 00:00 daily. Medical tablet 53 :00 Ub[place] tiZANidine No TAKE 1 [place] (ZANAFLEX) 11-10 TABLET(4 [place] 4 MG tablet 00:00: 00:00 MG) BY st 00 :00 MOUTH EVERY 8 HOURS NEEDED FOR MUSCLE SPASMS oxyCODone No chronic 20mg Q.25D Take 1 [place] (ROXICODONE 11-10 pain tablet (20 M ethodi ) 20 MG 00:00: 00:00 mg total) st tablet 00 :00 by mouth 4 (four) times a day for 30 days .chronic pain. Max Daily Amount: 80 mg oxyCODone chronic 20mg Q.25D Take 1 [place] (ROXICODONE 8-28 pain tablet (20 M ethodi ) 20 MG 00:00: 00:00 mg total) st tablet 00 :00 by mouth 4 (four) times a day for 3 days .chronic pain. Max Daily Amount: 80 mg oxyCODone No chronic 20mg Q.25D Take 1 [place] (ROXICODONE 10-11 08-10 pain tablet (20 M ethodi ) 20 MG 00:00: 00:00 mg total) st tablet 00 :00 by mouth 4 (four) times a day for 30 days .chronic pain. tiZANidine 2020-0 2020- No 4mg Q8H Take 1 [place] (ZANAFLEX) 6-18 08-13 tablet (4 Met hodi 4 MG tablet 00:00: 00:00 mg total) st 00 :00 by mouth every 8 (eight) hours as needed for muscle spasms. oxyCODone 2019-0 2020- No chronic 20mg Q.25D Take 1 [place] (ROXICODONE 6-15 06-18 pain tablet (20 M ethodi ) 20 MG 00:00: 00:00 mg total) st tablet 00 :00 by mouth 4 (four) times a day for 30 days .chronic pain. pregabalin 2020-0 2020- No 75mg Q.[id number] Take 1 Toney (LYRICA) 75 5-29 06-28 [id number] capsule Methodi MG capsule 00:00: 23:59 3D ([address] 00 :00 total) by mouth 3 (three) times a day for 30 days. tiZANidine 2019-0 2020- No 4mg Q8H Take 1 [place] (ZANAFLEX) 4-20 06-18 tablet (4 Met hodi 4 MG tablet 00:00: 00:00 mg total) st 00 :00 by mouth every 8 (eight) hours as needed for muscle spasms. Neomycin-Po Neomycin-Po 2018- Yes Stu [address] lymyxin-HC lymyxin-HC 2-10 [place] into Stacy kes - 00:00: affected [facility] Oxycodone Oxycodone 2018-0 Yes Stu [address] [facility] [address] HCl HCl 7-16 [place] as needed [facility] - 00:00: [facility] Clin[facility] Meclizine Meclizine 2018-0 Yes Stu [address] HCl HCl 4-23 [place] as needed [facility] - 00:00: [facility]oria 00 l [facility]pat[facility] ent Clinics ELIQUIS 5 2017-0 Yes 5mg Q.5D 5 mg 2 [place] mg tablet 5-28 (two) Methodi 00:00: times a st 00 day. Nexium Nexium Yes Stu 1 capsule [facility] [...] [place] as needed [facility] Prolia Prolia Yes Stu 60 [...] - n to Memoria affected l area [facility] Spironolact Spironolact Yes Stu [address] one one [place] [facility] Tizanidine Tizanidine Yes Stu TK [address] [address] HCl HCl [place] QD PRN [facility] Vital Signs Vital Name Observation Time Observation Value Comments Source Systolic blood 2020-06-07 12:13:00 120 mm[Hg] [facility] Diastolic blood 2020-06-07 12:13:00 63 mm[Hg] [facility] Heart rate 2020-06-07 12:13:00 80 /min [facility] Body temperature 2020-06-07 12:13:00 36.56 [place] Respiratory rate 2020-06-07 12:13:00 18 /min [facility] Oxygen saturation in 2020-06-07 12:13:00 96 /min [facility] - Arterial blood by Medical Ce nter Pulse oximetry Body height 2020-05-31 08:36:00 162.6 cm [facility] Body weight 2020-05-31 08:36:00 63.1 kg [facility] BMI 2020-05-31 08:36:00 23.88 kg/m2 [facility] Body height 2019-10-08 12:41:00 162.6 cm Feng Cummins Body weight 2019-10-08 12:41:00 67.132 kg Feng Cummins BMI 2019-10-08 12:41:00 25.40 kg/m2 Feng Cummins Procedures Procedure Date / Time Performing Clinician Source Performed CBC W/PLT COUNT & AUTO 2020-06-06 14:22:[address] [facility]ABOLIC PANEL (7) 2020-06-06 14:22:00 [facility] SARS-COV2/RT-PCR ([facility] & 2020-06-06 06:02:00 Vishal Adorno [facility] REF LABS) [facility] BASIC METABOLIC PANEL (7) 2020-06-03 06:32:[address] [facility] CBC (HEMOGRAM ONLY) 2020-06-03 06:32:00 Ernesto [facility] BASIC METABOLIC PANEL (7) 2020-06-02 04:49:[address] [facility] CBC (HEMOGRAM ONLY) 2020-06-02 04:49:00 Ernesto [facility] CALCIUM, IONIZED 2020-06-01 05:17:00 [facility] PHOSPHORUS 2020-06-01 05:17:00 [facility] MAGNESIUM 2020-06-01 05:17:00 [facility] HEMOGLOBIN A1C 2020-06-01 05:17:00 [facility] IRON, TIBC, % SAT. 2020-05-31 19:20:00 [facility] (WITHOUT FERRITIN) [facility] HEMOGLOBIN AND HEMATOCRIT 2020-05-31 19:20:00 [facility] FERRITIN 2020-05-31 19:20:00 Vishal Adorno [facility] [place] FLUORO NON-SPECIFIC UP 2020-05-31 12:20:00 Taylor Orozco [facility] - TO 1 HOUR [facility] ANAEROBIC CULTURE 2020-05-31 11:21:29 [facility] SURGICALLY OBTAINED 2020-05-31 11:21:29 [facility] GRAM STAIN [facility] [employer] CULTURE + SMEAR 2020-05-31 11:21:29 Taylor Orozco [facility] (NON-SPUTUM) [facility] FUNGUS CULTURE + SMEAR 2020-05-31 11:21:29 Ernesto [facility] SPIN/CONCENTRATION CHARGE 2020-05-31 11:21:00 [facility] CULT[facility] + SMEAR 2020-05-31 10:51:02 Taylor Orozco [facility] (NON-SPUTUM) [facility] ANAEROBIC CULTURE 2020-05-31 10:51:02 Ernesto [facility] FUNGUS CULTURE + SMEAR 2020-05-31 10:51:02 Taylor Orozco [facility] SURGICALLY OBTAINED 2020-05-31 10:51:02 Taylor Orozco [facility] - CULTURE + GRAM STAIN [facility] ter SPIN/CONCENTRATION CHARGE 2020-05-31 10:51:00 Taylor Orozco [facility] REPAIR,NONUNION/ MALUNION 2020-05-31 09:38:00 Taylor Orozco [facility] CBC (HEMOGRAM ONLY) 2020-05-31 08:53:00 Ernesto [facility] BASIC METABOLIC PANEL (7) 2020-05-31 08:53:00 Taylor Orozco [facility] TYPE AND SCREEN, 2020-05-31 08:51:00 [facility] ([facility] & 2020-05-30 15:44:00 Taylor Orozco [facility] - REF LABS) [facility] BASIC METABOLIC PANEL (7) 2020-05-30 15:44:00 Taylor Cruz nd [facility] XR ANKLE 3+ VW RIGHT 2020-02-10 00:00:00 Daryl Pérez Veronica Spearsmanuela ibarra [facility] RHYTHM STRIP - SCAN 2019-11-30 13:01:24 Provider, [facility] TRANSFUSION SERVICE 2019-11-29 18:00:58 Provider, [facility] REPORT - SCAN Scanning [facility] CBC (HEMOGRAM ONLY) 2019-11-29 04:50:00 [facility] (7) 2019-11-29 04:50:00 Gruber, [facility] PREPARE LEUKO-REDUCED RBC 2019-11-28 23:54:00 Gruber, [facility] TRANSFUSION SERVICE 2019-11-28 18:00:26 Provider, [facility] REPORT [facility] HEMOGLOBIN AND HEMATOCRIT 2019-11-28 16:48:00 Gruber, [facility] XR FEMUR 2 VIEWS RIGHT 2019-11-28 14:20:00 Gruber, [facility] XR CHEST 1 VIEW 2019-11-28 14:20:00 Gruber, Ruba Stewart [facility] PORTABLE/BEDSIDE [facility] [employer] CBC (HEMOGRAM ONLY) 2019-11-28 04:47:00 Gruber, [facility] BASIC METABOLIC PANEL (7) 2019-11-28 04:47:00 Gruber, Ruba Pat [facility] PREPARE LEUKO-REDUCED RBC 2019-11-27 23:54:00 Gruber, Ruba Stewart [facility] HEMOGLOBIN AND HEMATOCRIT 2019-11-27 21:29:00 Gruber, Ruba Pat [facility] TRANSFUSE LEUKO-REDUCED 2019-11-27 18:15:34 Gruber, Ruba Stewart [facility] RED BLOOD CELLS [facility] TRANSFUSION SERVICE 2019-11-27 18:00:45 Provider, [facility] REPORT SCAN Scanning [facility] CBC (HEMOGRAM ONLY) 2019-11-27 05:23:00 Gruber, Ruba Stewart [facility] XR CHEST 1 VIEW 2019-11-27 04:17:00 Gruber, Ruba Stewart [facility] PORTABLE/BEDSIDE [facility] [employer] PREPARE LEUKO-REDUCED RBC 2019-11-26 23:54:00 [facility]uber[facility] HEMOGLOBIN AND HEMATOCRIT 2019-11-26 22:41:00 [facility] URINE [facility]URE 2019-11-26 21:50:00 [facility]/ [facility]FLEX 2019-11-26 21:50:00 Gruber, Ruba Stewart [facility] URINE CULTURE [facility] TRANSFUSE LEUKO-REDUCED 2019-11-26 20:39:08 Gruber, Ruba Stewart [facility] RED BLOOD CELLS [facility] TRANSFUSION SERVICE 2019-11-26 18:01:04 Provider, [facility] CBC (HEMOGRAM ONLY) 2019-11-26 04:53:00 Gruber, [facility] TRANSFUSION SERVICE 2019-11-25 18:01:13 Provider, [facility] IMMUNOGLOBULIN A (IGA) 2019-11-25 14:59:00 [place] [facility] VITAMIN B12 AND FOLATE 2019-11-25 14:59:00 Gruber, [facility] IRON, TIBC, % SAT. 2019-11-25 14:59:00 Gruber, Ruba Stewart [facility] (WITHOUT FERRITIN) [facility] 2019-11-25 14:59:00 Gruber, Ruba Stewart [facility] TRANSFUSE LEUKO-REDUCED 2019-11-25 13:35:39 Gruber, Ruba Stewart [facility] RED BLOOD CELLS [facility] HEMOGLOBIN AND HEMATOCRIT 2019-11-25 13:22:00 Gruber, [facility] TRANSFUSION REACTION 2019-11-25 13:18:00 [facility] ([facility] ONLY) 2019-11-25 04:40:00 Gruber, Ruba Stewart [facility] BASIC METABOLIC PANEL (7) 2019-11-25 04:40:00 [facility]uber[facility] [place] FLUORO NON-SPECIFIC UP 2019-11-24 16:15:00 Taylor Orozco [facility] TO 1 HOUR [facility] IM RODDING,FEMUR 2019-11-24 14:32:00 Taylor Orozco [facility] PROCEDURE W/ C-ARM 2019-11-24 14:32:00 Taylor Orozco [facility] ABORH, MANUAL 2019-11-24 14:00:00 Purnima Cifuentes [facility] TYPE AND SCREEN, 2019-11-24 10:36:00 Kerri Encarnacion [facility] AUTOMATED [facility] VITAMIN D, 25-HYDROXY 2019-11-24 03:49:00 Grbuer, Ruba Stewart [facility] CBC (HEMOGRAM ONLY) 2019-11-24 03:49:00 Gruber, Ruba Stewart [facility] BASIC METABOLIC PANEL (7) 2019-11-24 03:49:00 Gruber, [facility] VENOUS DOPPLER LEGS 2019-11-23 19:30:00 Gruber, Ruba Stewart [facility] BILATERAL [facility] XR FEMUR 2 VIEWS LEFT 2019-11-23 17:42:00 Chapo Espinoza [facility] ECG 12-LEAD 2019-11-23 15:47:40 Gruber, Ruba Stewart [facility] SARS-COV2/RT-PCR ([facility] & 2019-11-23 15:01:00 Gruber, Ruba Ontiveros [facility] - REF LABS) [facility] CBC W/PLT COUNT & AUTO 2019-11-23 12:19:00 Gruber, Ruba Stewart [facility] PROTHROMBIN TIME/INR 2019-11-23 12:19:00 Gruber, Ruba Stewart [facility] BASIC METABOLIC PANEL (7) 2019-11-23 12:19:00 Allyn Ruba Stewart [facility] XR FEMUR 2 VW RIGHT 2019-10-08 12:33:35 Bryson Mota [place] [facility] Plan of Care Planned Activity Planned Date Details Comments Source Future Scheduled 2020-11-[address] [facility] 00:00:00 (Season Ended) [code = Medic al Center INFLUENZA VACCINE (Season Ended)] Future Scheduled 2020-10-29 INFL[place]ENZA VACCINE [place] [facility] Test 00:00:00 [code = INFLUENZA VACCINE] Future Scheduled 2020-03-[address] [facility] 00:00:00 (12+) [code = Medical Center DEPRESSION SCREENING (12+)] Future Scheduled 2009-09-[address] [facility] 00:[facility]:00 WELLNESS (YEAR 2 or Medical Center FIRST YEAR if no IPPE) [code = MEDICARE ANNUAL WELLNESS (YEAR 2 or FIRST YEAR if no IPPE)] Future Scheduled 2008-10-27 65+ PNEUMOCOCCAL [place] [facility] Test 00:00:00 VACCINE (1 of 1 - PPSV23) [code = 65+ PNEUMOCOCCAL VACCINE (1 of 1 - PPSV23)] Future Scheduled 2008-10-27 PNEUMOCOCCAL 65+ YRS [facility]:00 (1 of 1 - Medical Center [id number] PCV13) [code = PNEUMOCOCCAL 65+ YRS (1 of 1 - [id number] PCV13)] Future Scheduled 1993-10-27 COLONOSCOPY SCREENING [facility] Test 00:00:00 [code = COLONOSCOPY SCREENING] Future Scheduled 1993-10-27 SHINGLES VACCINES (#1) [facility] Test 00:00:00 [code = SHINGLES VACCINES (#1)] Future Scheduled 1993-10-27 SHINGLES VACCINES ([address] [facility] Test 00:00:00 of 2) [code = SHINGLES Medic al Center VACCINES (1 of 2)] Future Scheduled 1962-10-27 DTAP/TDAP/TD VACCINES [facility] 00:[facility]00 (1 - Tdap) [code = Medical C enter DTAP/TDAP/TD VACCINES (1 - Tdap)] Future Scheduled 1961-10-27 Hepatitis C screening [place] [facility] Test 00:00:00 (procedure) [code = 339864822] Future Scheduled 1961-10-27 HEPATITIS C SCREENING [facility]00 [code = HEPATITIS C Medical Center SCREENING] Future Scheduled 1955 COVID-19 VACCINE (1) Faina ibarra [facility] Test 00:00:00 [code = COVID-19 VACCINE (1)] Future Scheduled 1955 COVID-19 VACCINE (1) [facility] Test 00:[facility]:00 [code = COVID-[address] VACCINE (1)] Encounters Start End Encounter Admission Attending Care Care Encounter Source Date/Time Date/Time Type Type Clinicians Facility Department ID 2020-07-17 2020-07-17 Outpatient [facility] [id number] [facility] 00[facility] 2020-07-10 2020-07-10 Outpatient [facility] [id number] [place] 00:00:00 00:00:00 DARYL [address] 2020-06-12 2020-06-12 Outpatient [facility] [id number] [place] 00:00:00 00:00:00 DARYL [address] 2020-05-22 2020-05-22 Office FLOYD Orozco [id number] 14:42:00 16:13:02 Visit Taylor SIMON [id number] 2020-04-20 2020-04-20 Outpatient [facility] [id number] [place] 00:00:00 00:00:00 DARYL [address] 2020-04-17 2020-04-17 [id number] 2020-04-17 2020-04-17 [id number] 2020-04-17 2020-04-17 [id number] 2020-02-21 2020-02-21 [facility] [id number] [facility] 2020-02-21 2020-02-21 [facility] [id number] [facility] 2020-02-10 2020-02-10 Outpatient P[facility]REZ, [facility] [id number] [place] 00:00:00 00:00:00 DARYL [address] 2019-12-27 2019-12-27 Outpatient PÉREZ, [facility] [id number] [place] 00:00:00 00:00:00 DARYL [address] 2019-10-21 2019-10-21 [facility] [id number] 15:00:00 15:00:00 t Finley Appydrink s BotScanner [facility] Outpati ent Clinics 2019-10-14 2019-10-14 [facility] [id number] 12:21:00 12:21:00 t PxRadia - Duxter [facility] Outpati ent Clinics 2019-10-08 2019-10-08 Outpatient BRYSON MOTA [facility] [id number] [place] 00:00:00 00:00:[address] 2019-10-08 2019-10-08 Outpatient BRYSON MOTA [facility] [id number] [place] 00:00:00 00:00:[address] 2019-09-16 2019-09-16 Outpatient ELISA [facility] [id number] [place] 00:00:00 00:00:00 DARYL [address] 2019-08-20 2019-08-27 Inpatient NATALIE, [facility] [id number] [place] 00:00:00 00:00:00 JHOANA [address] 2019-08-05 2019-08-05 [facility] [id number] 14:58:00 14:58:00 t Finley SocialTagg [facility] Medicine l Medicine Outpati ent Clinics 2019-07-22 2019-07-22 [facility] [id number] 12:29:00 12:29:00 t Finley SocialTagg [facility] Medicine Outpati ent Clinics 2019-07-19 2019-07-19 Outpatient ELISA [facility] [id number] [place] 00:00:00 00:00:[address] 2019-05-28 2019-05-28 [facility] [id number] 08:12:00 08:12:00 t Datumate [facility] Medicine Outpati ent Clinics 2019-05-25 2019-05-25 Outpatient ELISA [facility] [id number] [address] [place] [address] 00:00:00 00:00:[address] 2019-05-20 2019-05-20 [facility] [id number] 09:00:00 09:00:00 t Datumate [facility] Medicine Outpati ent Clinics 2019-04-28 2019-04-28 [facility] [id number] 16:26:00 16:26:00 t Datumate [facility] Medicine Outpati ent Clinics 2019-03-09 2019-03-09 [facility] [id number] 16:45:00 16:45:00 t Datumate [facility] Medicine Outpati ent Clinics 2019-03-03 2019-03-03 [facility] [id number] 15:38:00 15:38:00 t Histogenics s BotScanner [facility] Medicine l Medicine Outpati ent Clinics 2019-03-03 2019-03-03 [facility] [id number] 13:00:00 13:00:00 t Datumate [facility] l Medicine Outpati ent Clinics 2019-01-27 2019-01-27 [facility] [id number] 11:24:00 11:24:00 t Datumate [facility] l Medicine Outpati ent Clinics 2019-01-07 2019-01-07 [facility] [id number] 11:56:00 11:56:[address] Luke s - Drive [facility] Medicine l Medicine Outpati ent Clinics 2019-01-04 2019-01-04 [facility] [id number] 16:00:00 16:00:[address] Luke s - Drive [facility] Medicine Medicine Outpati ent Clinics 2018-12-23 2018-12-23 [facility] [id number] 14:16:00 14:16:[address] Luke s - Drive [facility] Medicine Outpati ent Clinics 2018-12-17 2018-12-17 [facility] [id number] 11:29:00 11:29:[address] Luke s - Drive [facility] Medicine Medicine Outpati ent Clinics 2018-12-14 2018-12-14 [facility] [id number] 16:12:00 16:12:[address] Luke s - Drive [facility] Medicine Medicine Outpati ent Clinics 2018-12-02 2018-12-02 [facility] [id number] 14:45:00 14:45:[address] Luke s - Drive [facility] Medicine Outpati ent Clinics 2018-11-23 2018-11-23 [facility] [id number] 10:51:00 10:51:[address] Luke s - Drive [facility] Medicine Outpati ent Clinics 2018-10-20 2018-10-20 [facility] [id number] 15:40:00 15:40:[address] Luke s - Drive [facility] Medicine Medicine Outpati ent Clinics 2018-08-11 2018-08-11 [facility] [id number] 08:59:00 08:59:[address] Luke s - Drive [facility] Medicine Outpati ent Clinics 2018-08-10 2018-08-10 [facility] [id number] 15:55:00 15:55:00 t Finley Finley Duxter Luke s - Drive [facility] Medicine Medicine Outpati ent Clinics 2018-07-29 2018-07-29 [facility] [id number] 09:31:00 09:31:[address] Luke s - Drive [facility] Medicine l Medicine Outpati ent Clinics 2018-07-21 2018-07-21 [facility] [id number] 11:45:00 11:45:00 t Finley Finley Duxter Luke s - Drive [facility] Medicine l Medicine Outpati ent Clinics 2018-07-14 2018-07-14 [facility] [id number] 13:31:00 13:31:00 t Finley Finley [place]uxter [place] - Drive [facility] Medicine Outpati ent Clinics 2018-07-01 2018-07-01 [facility] [id number] 14:10:00 14:10:00 t Finley [place]ley [place] - Drive [facility] Medicine Outpati ent Clinics 2018-07-01 2018-07-01 [facility] [id number] 11:45:00 11:45:00 t Finley Finley Duxter [place] s - Drive [facility] Medicine Medicine Outpati ent Clinics 2018-06-04 2018-06-04 [facility] [id number] 11:30:00 11:30:00 t Finley Appydrink s - Duxter [facility] Medicine Medicine Outpati ent Clinics 2018-03-18 2018-03-18 [facility] [id number] 14:08:00 14:08:00 t Finley [place]ley [place] - Drive [facility] Medicine Medicine Outpati ent Clinics 2018-01-12 2018-01-12 [facility] [id number] 08:45:00 08:45:00 t Finley Finley [place] - Drive [facility] Medicine Medicine Outpati ent Clinics 2018-01-05 2018-01-05 [facility] [id number] 14:00:00 14:00:00 t Finley Finley [place] - Duxter [facility] Medicine Outpati ent Clinics Results Test Description Test Time Test Comments Results Result Comments Source AFB culture + smear (non-sputum) 2020-07-17 08:41:00 Test Item Value Reference Range Interpretation Comme nts Result (test code = 6463-4) No acid-fast bacilli isolated in 42 day s AFB Smear (test code = 91798-3) No acid fast bacilli [facility]2020-07-17 08:41:00 Test Item Value Reference Range Interpretation Comments CULTURE (BEAKER) (test No acid-fast bacilli code = 1095) isolated in 42 days AFB SMEAR (BEAKER) No acid fast bacilli (test code = 994) seen AFB CULTURE + SMEAR (NON-SPUTUM)2020-07-17 08:41:00 Test Item Value Reference Range Interpretation Comments CULTURE (BEAKER) (test No acid-fast bacilli code = 1095) isolated in 42 days AFB SMEAR (BEAKER) No acid fast bacilli (test code = 994) seen Fungus culture + [id number] 16:47:00 Test Item Value Reference Range Interpretation Comments Result (test code = No fungus isolated in 6463-4) 28 days Fungus Smear (test No fungi seen code = 1406) [facility] [id number] 16:47:00 Test Item Value Reference Range Interpretation Comments CULTURE (BEAKER) (test No fungus isolated in code = 1095) 28 days FUNGUS SMEAR (BEAKER) No fungi seen (test code = 1406) FUNGUS CULTURE + [id number] 16:47:00 Test Item Value Reference Range Interpretation Comments CULTURE (BEAKER) (test No fungus isolated in code = 1095) 28 days FUNGUS SMEAR (BEAKER) No fungi seen (test code = 1406) Anaerobic [id number] 19:40:00 Test Item Value Reference Range Interpretation Comments Result (test code = No anaerobes isolated 6463-4) [facility] [id number] 19:40:00 Test Item Value Reference Range Interpretation Comments CULTURE (BEAKER) (test No anaerobes isolated code = 1095) ANAEROBIC [id number] 19:40:00 Test Item Value Reference Range Interpretation Comments CULTURE (BEAKER) (test No anaerobes isolated code = 1095) Basic Metabolic [id number] 14:59:00 Test Item Value Reference Range Interpretation Comments Sodium (test code = 135 meq/L 136-145 L 2951-2) Potassium (test code 3.6 meq/L 3.5-5.1 = 2823-3) Chloride (test code = 99 meq/L 98-107 2075-0) CO2 (test code = 28 meq/L 22-29 2028-9) BUN (test code = 4 mg/dL 7-21 L 3094-0) Creatinine (test code 0.52 mg/dL 0.57-1.25 L = 2160-0) Glucose (test code = 107 mg/dL 70-105 H 2345-7) Calcium (test code = 8.6 mg/dL 8.4-10.2 57409-6) EGFR (test code = 115 mL/min/1.73 [place] [address]-5) NOT ACCURATE CREATININE CLEARANCE IN PREDICTING GLOMERULAR FILTRATION RATE . ESTIMATED GFR I S NOT APPLICABLE FOR DIALYSIS PATIENTS. UMU (test code = UMU) Communications Intern ID - BSOperator ID - BS Lab Interpretation Abnormal (test code = 92659-5) [facility] METABOLIC [id number] 14:59:00 Test Item Value Reference Range Interpretation Comments SODIUM (BEAKER) 135 meq/L 136-145 L (test code = 381) POTASSIUM (BEAKER) 3.6 meq/L 3.5-5.1 (test code = 379) CHLORIDE (BEAKER) 99 meq/L 98-107 (test code = 382) CO2 (BEAKER) (test 28 meq/L 22-29 code = 355) BLOOD UREA NITROGEN 4 mg/dL 7-21 L (BEAKER) (test code = 354) CREATININE (BEAKER) 0.52 mg/dL 0.57-1.25 L (test code = 358) GLUCOSE RANDOM 107 mg/dL 70-105 H (BEAKER) (test code = 652) CALCIUM (BEAKER) 8.6 mg/dL 8.4-10.2 (test code = 697) EGFR (BEAKER) (test 115 mL/min/1.73 ESTIM ATED GFR IS code = 1092) sq m NOT ACCURATE CREATININE CLEARANCE IN PREDICTING GLOMERULAR FILTRATION RATE . ESTIMATED GFR I S NOT APPLICABLE FOR DIALYSIS PATIEN TS. Communications Intern ID - BSOperator ID - BSCBC with platelet count + automated diff 2020-06-06 14:30:00 Test Item Value Reference Range Interpretation Comments WBC (test code = 6690-2) 6.0 See_Comment [A utomated message] The system [employer] generated this result transmitted ref erence range: 3.5 - 10 .5 K/L. The refe rence range was not u sed to interpret this result as normal/abnor mal. RBC (test code = 789-8) 3.73 See_Comment L [Au tomated message] The system [employer] generated this result transmitted ref erence range: 3.93 - 5 .22 M/L. The refe rence range was not u sed to interpret this result as normal/abnor mal. MCHC (test code = 786-4) 33.3 See_Comment L [A utomated message] The system [employer] generated this result transmitted ref erence range: 32.2 - 3 5.5 GM/DL. The refe rence range was not u sed to interpret this result as normal/abnor mal. Hematocrit (test code = 31.5 % 34.1-44.9 L 4544-3) MCV (test code = 787-2) 84.5 fL 79.4-94.8 MCH (test code = 785-6) 28.2 pg 25.6-32.2 RDW (test code = 788-0) 12.2 % 11.7-14.4 Platelets (test code = 237 See_Comment [Aut omated message] 777-3) The system [employer] generated this result transmitted ref erence range: 150 - 45 0 K/CU MM. The referen ce range was not u sed to interpret this result as normal/abnor mal. MPV (test code = 10.1 fL 9.4-12.3 05172-9) nRBC (test code = 413) 0 See_Comment [Aut omated message] The system [employer] generated this result transmitted ref erence range: 0 - 0 /1 00 WBC. The refere nce range was not u sed to interpret this result as normal/abnor mal. % Neutros (test code = 72 % 429) % Lymphs (test code = 17 % 430) % Monos (test code = 9 % 431) % Eos (test code = 432) 2 % % Baso (test code = 437) 1 % # Neutros (test code = 4.31 See_Comment [Aut omated message] 670) The system [employer] generated this result transmitted ref erence range: 1.56 - 6 .13 K/L. The refe rence range was not u sed to interpret this result as normal/abnor mal. # Lymphs (test code = 0.99 See_Comment L [Auto mated message] 414) The system [employer] generated this result transmitted ref erence range: 1.18 - 3 .74 K/L. The refe rence range was not u sed to interpret this result as normal/abnor mal. # Monos (test code = 0.53 See_Comment H [Autom ated message] 415) The system [employer]oPathway generated this result transmitted ref erence range: 0.24 - 0 .36 K/L. The refe rence range was not u sed to interpret this result as normal/abnor mal. # Eos (test code = 416) 0.10 See_Comment [Au tomated message] The system [employer] generated this result transmitted ref erence range: 0.04 - 0 .36 K/L. The refe rence range was not u sed to interpret this result as normal/abnor mal. # Baso (test code = 417) 0.03 See_Comment [A utomated message] The system [employer] generated this result transmitted ref erence range: 0.01 - 0 .08 K/L. The refe rence range was not u sed to interpret this result as normal/abnor mal. Immature 0 % 0-1 Granulocytes-Relative (test code = 2801) Lab Interpretation (test Abnormal code = 66492-3) [facility] W/PLT COUNT & AUTO [id number] 14:30:00 Test Item Value Reference Range Interpretation Comments WHITE BLOOD CELL COUNT (BEAKER) 6.0 K/ L 3.5-10.5 (test code = 775) RED BLOOD CELL COUNT (BEAKER) 3.73 M/ L 3.93-5.22 L (test code = 761) HEMOGLOBIN (BEAKER) (test code = 10.5 GM/DL 11.2-15.7 L 410) HEMATOCRIT (BEAKER) (test code = 31.5 % 34.1-44.9 L 411) MEAN CORPUSCULAR VOLUME (BEAKER) 84.5 fL 79.4-94.8 (test code = 753) MEAN CORPUSCULAR HEMOGLOBIN 28.2 pg 25.6-32.2 (BEAKER) (test code = 751) MEAN CORPUSCULAR HEMOGLOBIN CONC 33.3 GM/DL 32.2-35.5 (BEAKER) (test code = 752) RED CELL DISTRIBUTION WIDTH 12.2 % 11.7-14.4 (BEAKER) (test code = 412) PLATELET COUNT (BEAKER) (test 237 K/CU MM 150-450 code = 756) MEAN PLATELET VOLUME (BEAKER) 10.1 fL 9.4-12.3 (test code = 754) NUCLEATED RED BLOOD CELLS 0 /100 WBC 0-0 (BEAKER) (test code = 413) NEUTROPHILS RELATIVE PERCENT 72 % (BEAKER) (test code = 429) LYMPHOCYTES RELATIVE PERCENT 17 % (BEAKER) (test code = 430) MONOCYTES RELATIVE PERCENT 9 % (BEAKER) (test code = 431) EOSINOPHILS RELATIVE PERCENT 2 % (BEAKER) (test code = 432) BASOPHILS RELATIVE PERCENT 1 % (BEAKER) (test code = 437) NEUTROPHILS ABSOLUTE COUNT 4.31 K/ L 1.56-6.13 (BEAKER) (test code = 670) LYMPHOCYTES ABSOLUTE COUNT 0.99 K/ L 1.18-3.74 L (BEAKER) (test code = 414) MONOCYTES ABSOLUTE COUNT (BEAKER) 0.53 K/ L 0.24-0.36 H (test code = 415) EOSINOPHILS ABSOLUTE COUNT 0.10 K/ L 0.04-0.36 (BEAKER) (test code = 416) BASOPHILS ABSOLUTE COUNT (BEAKER) 0.03 K/ L 0.01-0.08 (test code = 417) IMMATURE GRANULOCYTES-RELATIVE 0 % 0-1 PERCENT (BEAKER) (test code = 2801) SARS-CoV2/RT-PCR (Asymptomatic ONLY)2020-06-06 10:31:00 Test Item Value Reference Range Interpretation Comments SARS-COV2/RT-PCR Negative Not Detected, (test code = Negative, See 45888-6) external report for linked test SARS-COV-2 [facility] PERFORMING LAB (test code = 43208-8) UMU (test code = Negative result for this UMU) test determines that SARS-CoV-2 RNA was not present in the specimen above the Limit of Detection (LOD). However, Negative results do not preclude SARS-CoV-2 infection and should not be used as the sole basis for treatment or patient management decisions. Negative results must be combined with clinical observations, patient history, and epidemiological information. A false negative result may occur if a specimen is improperly collected, transported or handled. A false negative result should be considered if patient's recent exposures or clinical presentation indicate that COVID-19 (SARS-CoV-2) is likely and diagnostic tests for other causes of illness are negative. Re-testing should be considered in cases of suspected false negatives. The limit of detection for this assay is 800 copies/mL. This SARS CoV-2 test is a real-time RT-PCR test intended for the qualitative detection of nucleic acid from SARS-CoV-2 in a nasopharyngeal swab specimen collected from individuals suspected of COVID-19 by their healthcare provider. This test has not been Food and Drug Administration (FDA) cleared or approved. This is a modified version of an approved Emergency Use Authorization (EUA) and is in the process of review by the FDA. Once authorized by the FDA, the issued EUA will be effective until the declaration that circumstances exist justifying the authorization of the emergency use of in vitro diagnostic tests for detection and/or diagnosis of COVID-19 is terminated under Section 564(b)(2) of the Act or the EUA is revoked under Section 564(g) of the Act. Fact Sheet for Healthcare Providers:https://www.[employer] idel.GamingTurf/sites/default/f genie/product/documents/F act_Sheet_HC_Providers_L uxe_AALI-LmF-4.pdf Fact Sheet for Healthcare Patients:https://www.Tailster del.GamingTurf/sites/default/fi les/product/documents/Fa ct_Sheet_Patients_Lyra_S ARS-CoV-2.pdf Performing Laboratory:[facility] [place] [address] [facility])2020-06-06 10:31:00 Test Item Value Reference Range Interpretation Comments SARS-COV2/RT-PCR (test Negative Not Detected, Negative, code = 9102825) See external report for linked test SARS-COV-2 PERFORMING LAB [facility] (test code = 0217095) Negative result for this test determines that SARS-CoV-2 RNA was not present in the specimen above the Limit of Detection (LOD). However, Negative results do not preclude SARS-CoV-2 infection and should not be used as the sole basis for treatment or patient management decisions. Negative results mustbe combined with clinical observations, patient history, and epidemiological information. A false negative result may occur if a specimen is improperly collected, transported or handled. A false negative result should be considered if patient's recent exposures or clinical presentation indicate that COVID-19 (SARS-CoV-2) is likely and diagnostic tests for other causes of illness are negative. Re-testing should be considered in cases of suspected false negatives.The limit of detection for this assay is 800 copies/mL.This SARS CoV-2 test is a real-time RT-PCR test intended for the qualitative detection of nucleic acid from SARS-CoV-2 in a nasopharyngeal swab specimen collected from individuals susp ected of COVID-19 by their healthcare provider.This test has not been Food and Drug Administration (FDA) cleared or approved. This is a modified version of an approved Emergency Use Authorization (EUA) and is in the process of review by the FDA. Once authorized by the FDA, the issued EUA will be effective until the declaration that circumstances exist justifying the authorization of the emergency use of in vitro diagnostic tests for detection and/or diagnosis of COVID-19 is terminated under Section 564(b)(2) of the Act or the EUA is revoked under Section 564(g) of the Act.Fact Sheet for Healthcare Providers:https://www.combionic.GamingTurf/sites/default/files/product/documents/Fact_Shee u_PT_Nsvpzhenj_Xvak_VJWX-FwS-4.pdfFact Sheet for Healthcare Patients:https://www.combionic.GamingTurf/sites/default/files/product/ documents/Wnss_Gqjsc_Mtyqowcl_Hjhq_FJQU-SoG-0.pdfPerforming Laboratory:[facility], [place] [address]EKCVNSEQKA OBTAINED CULTURE + GRAM [id number] 09:02:00 Test Item Value Reference Range Interpretation Comments CULTURE (BEAKER) A From Broth Only (test code = Streptococcus 1095) parasanguinis GRAM STAIN 1+ WBCs RESULT (BEAKER) (test code = 1123) GRAM STAIN No organisms seen RESULT (BEAKER) (test code = 997690) Surgically obtained culture + gram [id number] 09:51:00 Test Item Value Reference Range Interpretation Comments Result (test code = 6463-4) No growth Gram Stain Result (test No organisms seen code = 1123) [facility] GRAM [id number] 09:51:00 Test Item Value Reference Range Interpretation Comments CULTURE (BEAKER) (test code No growth = 1095) GRAM STAIN RESULT (BEAKER) <1+ WBCs (test code = 1123) GRAM STAIN RESULT (BEAKER) No organisms seen (test code = 45129) BASIC METABOLIC [id number] 07:42:00 Test Item Value Reference Range Interpretation Comments SODIUM (BEAKER) 131 meq/L 136-145 L (test code = 381) POTASSIUM (BEAKER) 3.7 meq/L 3.5-5.1 (test code = 379) CHLORIDE (BEAKER) 96 meq/L 98-107 L (test code = 382) CO2 (BEAKER) (test 24 meq/L 22-29 code = 355) BLOOD UREA NITROGEN 6 mg/dL 7-21 L (BEAKER) (test code = 354) CREATININE (BEAKER) 0.52 mg/dL 0.57-1.25 L (test code = 358) GLUCOSE RANDOM 84 mg/dL 70-105 (BEAKER) (test code = 652) CALCIUM (BEAKER) 8.3 mg/dL 8.4-10.2 L (test code = 697) EGFR (BEAKER) (test 115 mL/min/1.73 ESTIM ATED GFR IS code = 1092) sq m NOT ACCURATE CREATININE CLEARANCE IN PREDICTING GLOMERULAR FILTRATION RATE . ESTIMATED GFR I S NOT APPLICABLE FOR DIALYSIS PATIEN TS. Communications Intern ID - EDASICBC (Hemogram only)2020-06-03 06:52:00 Test Item Value Reference Range Interpretation Comments WBC (test code = 6690-2) 7.8 See_Comment [A utomated message] The system HistoPathway generated this result transmitted ref erence range: 3.5 - 10 .5 K/L. The refe rence range was not u sed to interpret this result as normal/abnor mal. RBC (test code = 789-8) 3.53 See_Comment L [Au tomated message] The system HistoPathway generated this result transmitted ref erence range: 3.93 - 5 .22 M/L. The refe rence range was not u sed to interpret this result as normal/abnor mal. MCHC (test code = 786-4) 32.7 See_Comment L [A utomated message] The system [employer]oPathway generated this result transmitted ref erence range: 32.2 - 3 5.5 GM/DL. The refe rence range was not u sed to interpret this result as normal/abnor mal. Hematocrit (test code = 30.3 % 34.1-44.9 L 4544-3) MCV (test code = 787-2) 85.8 fL 79.4-94.8 MCH (test code = 785-6) 28.0 pg 25.6-32.2 RDW (test code = 788-0) 12.3 % 11.7-14.4 Platelets (test code = 175 See_Comment [Aut omated message] 777-3) The system HistoPathway generated this result transmitted ref erence range: 150 - 45 0 K/CU MM. The referen ce range was not u sed to interpret this result as normal/abnor mal. MPV (test code = 10.2 fL 9.4-12.3 31172-8) nRBC (test code = 413) 0 See_Comment [Aut omated message] The system HistoPathway generated this result transmitted ref erence range: 0 - 0 /1 00 WBC. The refere nce range was not u sed to interpret this result as normal/abnor mal. Lab Interpretation (test Abnormal code = 42003-2) [facility] (HEMOGRAM ONLY)2020-06-03 06:52:00 Test Item Value Reference Range Interpretation Comments WHITE BLOOD CELL COUNT (BEAKER) 7.8 K/ L 3.5-10.5 (test code = 775) RED BLOOD CELL COUNT (BEAKER) 3.53 M/ L 3.93-5.22 L (test code = 761) HEMOGLOBIN (BEAKER) (test code = 9.9 GM/DL 11.2-15.7 L 410) HEMATOCRIT (BEAKER) (test code = 30.3 % 34.1-44.9 L 411) MEAN CORPUSCULAR VOLUME (BEAKER) 85.8 fL 79.4-94.8 (test code = 753) MEAN CORPUSCULAR HEMOGLOBIN 28.0 pg 25.6-32.2 (BEAKER) (test code = 751) MEAN CORPUSCULAR HEMOGLOBIN CONC 32.7 GM/DL 32.2-35.5 (BEAKER) (test code = 752) RED CELL DISTRIBUTION WIDTH 12.3 % 11.7-14.4 (BEAKER) (test code = 412) PLATELET COUNT (BEAKER) (test 175 K/CU MM 150-450 code = 756) MEAN PLATELET VOLUME (BEAKER) 10.2 fL 9.4-12.3 (test code = 754) NUCLEATED RED BLOOD CELLS 0 /100 WBC 0-0 (BEAKER) (test code = 413) BASIC METABOLIC [id number] 06:07:00 Test Item Value Reference Range Interpretation Comments SODIUM (BEAKER) 129 meq/L 136-145 L (test code = 381) POTASSIUM (BEAKER) 3.6 meq/L 3.5-5.1 (test code = 379) CHLORIDE (BEAKER) 97 meq/L 98-107 L (test code = 382) CO2 (BEAKER) (test 25 meq/L 22-29 code = 355) BLOOD UREA NITROGEN 6 mg/dL 7-21 L (BEAKER) (test code = 354) CREATININE (BEAKER) 0.54 mg/dL 0.57-1.25 L (test code = 358) GLUCOSE RANDOM 105 mg/dL 70-105 (BEAKER) (test code = 652) CALCIUM (BEAKER) 8.1 mg/dL 8.4-10.2 L (test code = 697) EGFR (BEAKER) (test 110 mL/min/1.73 ESTIM ATED GFR IS code = 1092) sq m NOT ACCURATE CREATININE CLEARANCE IN PREDICTING GLOMERULAR FILTRATION RATE . ESTIMATED GFR I S NOT APPLICABLE FOR DIALYSIS PATIEN TS. Communications Intern ID - EDASICBC (HEMOGRAM ONLY)2020-06-02 05:47:00 Test Item Value Reference Range Interpretation Comments WHITE BLOOD CELL COUNT (BEAKER) 9.1 K/ L 3.5-10.5 (test code = 775) RED BLOOD CELL COUNT (BEAKER) 3.64 M/ L 3.93-5.22 L (test code = 761) HEMOGLOBIN (BEAKER) (test code = 10.4 GM/DL 11.2-15.7 L 410) HEMATOCRIT (BEAKER) (test code = 30.7 % 34.1-44.9 L 411) MEAN CORPUSCULAR VOLUME (BEAKER) 84.3 fL 79.4-94.8 (test code = 753) MEAN CORPUSCULAR HEMOGLOBIN 28.6 pg 25.6-32.2 (BEAKER) (test code = 751) MEAN CORPUSCULAR HEMOGLOBIN CONC 33.9 GM/DL 32.2-35.5 (BEAKER) (test code = 752) RED CELL DISTRIBUTION WIDTH 12.2 % 11.7-14.4 (BEAKER) (test code = 412) PLATELET COUNT (BEAKER) (test 180 K/CU MM 150-450 code = 756) MEAN PLATELET VOLUME (BEAKER) 10.6 fL 9.4-12.3 (test code = 754) NUCLEATED RED BLOOD CELLS 0 /100 WBC 0-0 (BEAKER) (test code = 413) SPIN/CONCENTRATION [id number] 13:46:00 Test Item Value Reference Range Interpretation Comments Concentration charged (test code = Done 2657) [facility] [id number] 13:46:00 Test Item Value Reference Range Interpretation Comments CONCENTRATION CHARGED (BEAKER) (test Done code = 0877) SPIN/CONCENTRATION [id number] 13:45:00 Test Item Value Reference Range Interpretation Comments CONCENTRATION CHARGED (BEAKER) (test Done code = 2657) [id number] 09:53:00 Test Item Value Reference Range Interpretation Comments Ferritin (test code = 66.41 ng/mL 5-275 2276-4) UMU (test code = UMU) Communications Intern ID - ADMIN Lab Interpretation (test Normal code = 33536-3) [facility] Test Item Value Reference Range Interpretation Comments FERRITIN (BEAKER) (test code = 66.41 ng/mL 5.00-275.00 361) Communications Intern ID - ADMINHemoglobin [id number] 09:00:00 Test Item Value Reference Range Interpretation Comments Hemoglobin A1C (test code = 4548-4) 5.4 % 4.3-6.1 Lab Interpretation (test code = Normal 68707-8) [facility]HEMOGLOBIN [id number] 09:00:00 Test Item Value Reference Range Interpretation Comments HEMOGLOBIN A1C (BEAKER) (test code = 5.4 % 4.3-6.1 368) [id number] 06:43:00 Test Item Value Reference Range Interpretation Comments Magnesium (test code = 1.7 mg/dL 1.6-2.6 25672-7) UMU (test code = UMU) Communications Intern ID - ADMIN Lab Interpretation (test Normal code = 20507-9) [facility] 06:43:00 Test Item Value Reference Range Interpretation Comments Phosphorus (test code = 2.9 mg/dL 2.3-4.7 2777-1) UMU (test code = UMU) Communications Intern ID - ADMIN Lab Interpretation (test Normal code = 83026-3) [facility] 06:43:00 Test Item Value Reference Range Interpretation Comments MAGNESIUM (BEAKER) (test code = 1.7 mg/dL 1.6-2.6 627) Communications Intern ID - [id number] 06:43:00 Test Item Value Reference Range Interpretation Comments PHOSPHORUS (BEAKER) (test code = 2.9 mg/dL 2.3-4.7 604) Communications Intern ID - ADMINCalcium, [id number] 05:33:00 Test Item Value Reference Range Interpretation Comments Calcium, Ion (test code = 1993-3) 1.07 mmol/L 1.12-1.27 L pH, Blood (test code = 97762-2) 7.42 Lab Interpretation (test code = Abnormal 34115-0) [facility] HospitalCALCIUM, [id number] 05:33:00 Test Item Value Reference Range Interpretation Comments CALCIUM IONIZED (BEAKER) (test 1.07 mmol/L 1.12-1.27 L code = 698) PH, BLOOD (BEAKER) (test code = 7.42 1810) Iron, TIBC, % sat. (without ferritin)2020-05-31 19:56:00 Test Item Value Reference Range Interpretation Comments Iron (test code = 2498-4) 56.0 ug/dL 40-160 TIBC (test code = 2500-7) 351 ug/dL 250-450 Iron % Saturation (test code 16 % 20-55 L = 2502-3) UMU (test code = UMU) Communications Intern ID - BS Lab Interpretation (test Abnormal code = 88801-3) [facility] HospitalIRON, TIBC, % SAT. (WITHOUT FERRITIN)2020-05-31 19:56:00 Test Item Value Reference Range Interpretation Comments IRON (BEAKER) (test code = 547) 56.0 ug/dL 40.0-160.0 TOTAL IRON BINDING CAPACITY 351 ug/dL 250-450 (BEAKER) (test code = 769) IRON % SATURATION (2) (BEAKER) 16 % 20-55 L (test code = 2590) Communications Intern ID - BSHemoglobin and [id number] 19:36:00 Test Item Value Reference Range Interpretation Comments Hemoglobin (test code 11.6 See_Comment [Auto mated = 786-4) message] The system which generated this result transmit orestes reference range : 11.2 - 15.7 GM/ DL. The reference range was not u sed to interpret th is result as normal/abnormal . Hematocrit (test code 34.8 % 34.1-44.9 = 4544-3) UMU (test code = UMU) Communications Intern ID - [id number] Lab Interpretation Normal (test code = 16332-8) [facility] HospitalHEMOGLOBIN AND [id number] 19:36:00 Test Item Value Reference Range Interpretation Comments HEMOGLOBIN (BEAKER) (test code = 11.6 GM/DL 11.2-15.7 410) HEMATOCRIT (BEAKER) (test code = 34.8 % 34.1-44.9 411) Communications Intern ID - 6000FL, FLUORO, NON-SPECIFIC, UP TO 1 [id number] 12:45:12 Reason for exam:->Repair NOnunion/Malunion Left Femur [facility] : 1945 Sex: FFluoroscopic unit utilized for a procedure performed in the OR. No interpretation was requested. Refer to the operative report for findings. Refer to PACS for patient radiation dose information.FL fluoro non-specific up to 1 [id number] 12:20:00 Interface, External Ris In - 05/31/2020 1:34 PM CSTFluoroscopic unit utilized for a procedure performed in the OR. No interpretation was requested. Refer to the operative report for findings. Referto PACS for patient radiation dose information.[facility] HospitalType and screen, [id number] 09:43:00 Test Item Value Reference Range Interpretation Comments ABO/RH AUTOMATED (BEAKER) (test O POSITIVE code = 2260) Ab Scrn (test code = 890-4) NEGATIVE [facility]BASIC [facility]OLIC [id number] 09:36:00 Test Item Value Reference Range Interpretation Comments SODIUM (BEAKER) 135 meq/L 136-145 L (test code = 381) POTASSIUM (BEAKER) 3.8 meq/L 3.5-5.1 (test code = 379) CHLORIDE (BEAKER) 100 meq/L 98-107 (test code = 382) CO2 (BEAKER) (test 25 meq/L 22-29 code = 355) BLOOD UREA NITROGEN 11 mg/dL 7-21 (BEAKER) (test code = 354) CREATININE (BEAKER) 0.64 mg/dL 0.57-1.25 (test code = 358) GLUCOSE RANDOM 84 mg/dL 70-105 (BEAKER) (test code = 652) CALCIUM (BEAKER) 9.4 mg/dL 8.4-10.2 (test code = 697) EGFR (BEAKER) (test 90 mL/min/1.73 ESTIMA ORESTES GFR IS code = 1092) sq m NOT ACCURATE CREATININE CLEARANCE IN PREDICTING GLOMERULAR FILTRATION RATE . ESTIMATED GFR I S NOT APPLICABLE FOR DIALYSIS PATIEN TS. Communications Intern ID - ROSIANGCBC (HEMOGRAM ONLY)2020-05-31 09:24:00 Test Item Value Reference Range Interpretation Comments WHITE BLOOD CELL COUNT (BEAKER) 5.9 K/ L 3.5-10.5 (test code = 775) RED BLOOD CELL COUNT (BEAKER) 4.54 M/ L 3.93-5.22 (test code = 761) HEMOGLOBIN (BEAKER) (test code = 12.9 GM/DL 11.2-15.7 410) HEMATOCRIT (BEAKER) (test code = 37.9 % 34.1-44.9 411) MEAN CORPUSCULAR VOLUME (BEAKER) 83.5 fL 79.4-94.8 (test code = 753) MEAN CORPUSCULAR HEMOGLOBIN 28.4 pg 25.6-32.2 (BEAKER) (test code = 751) MEAN CORPUSCULAR HEMOGLOBIN CONC 34.0 GM/DL 32.2-35.5 (BEAKER) (test code = 752) RED CELL DISTRIBUTION WIDTH 12.3 % 11.7-14.4 (BEAKER) (test code = 412) PLATELET COUNT (BEAKER) (test 211 K/CU MM 150-450 code = 756) MEAN PLATELET VOLUME (BEAKER) 10.2 fL 9.4-12.3 (test code = 754) NUCLEATED RED BLOOD CELLS 0 /100 WBC 0-0 (BEAKER) (test code = 413) SARS-COV2/RT-PCR ([facility])2020-05-31 02:16:00 Test Item Value Reference Range Interpretation Comments SARS-COV2/RT-PCR (test Negative Not Detected, Negative, code = 7012849) See external report for linked test SARS-COV-2 PERFORMING LAB [facility] (test code = 5719697) Negative result for this test determines that SARS-CoV-2 RNA was not present in the specimen above the Limit of Detection (LOD). However, Negative results do not preclude SARS-CoV-2 infection and should not be used as the sole basis for treatment or patient management decisions. Negative results mustbe combined with clinical observations, patient history, and epidemiological information. A false negative result may occur if a specimen is improperly collected, transported or handled. A false negative result should be considered if patient's recent exposures or clinical presentation indicate that COVID-19 (SARS-CoV-2) is likely and diagnostic tests for other causes of illness are negative. Re-testing should be considered in cases of suspected false negatives.The limit of detection for this assay is 100 copies/mL.This SARS CoV-2 test is a real-time RT-PCR test intended for the qualitative detection of nucleic acid from SARS-CoV-2 in a nasopharyngeal swab specimen collected from individuals susp ected of COVID-19 by their healthcare provider.This test has not been Food and Drug Administration (FDA) cleared or approved. This is a modified version of an approved Emergency Use Authorization (EUA) and is in the process of review by the FDA. Once authorized by the FDA, the issued EUA will be effective until the declaration that circumstances exist justifying the authorization of the emergency use of in vitro diagnostic tests for detection and/or diagnosis of COVID-19 is terminated under Section 564(b)(2) of the Act or the EUA is revoked under Section 564(g) of the Act.Testing was performed using the [employer] SARS-CoV-2 assay.Fact Sheet for Healthcare Providers:https://www.molecular.hughes/vickie/ SY_KJPM-GxQ-6_UYF_Qdvp_Asgww_00-916077.pdfFact Sheet for Healthcare Patients:https://www.Mendix.ab candelario/vickie/RG_TVLN-KfF-2_Lcnmdff_Xmau_Kpsew_XF_80-787246F0.pdfPerforming Laboratory:[facility] [place] [address] BASIC METABOLIC [id number] 16:20:00 Test Item Value Reference Range Interpretation Comments SODIUM (BEAKER) 137 meq/L 136-145 (test code = 381) POTASSIUM (BEAKER) 4.0 meq/L 3.5-5.1 (test code = 379) CHLORIDE (BEAKER) 99 meq/L 98-107 (test code = 382) CO2 (BEAKER) (test 28 meq/L 22-29 code = 355) BLOOD UREA NITROGEN 9 mg/dL 7-21 (BEAKER) (test code = 354) CREATININE (BEAKER) 0.64 mg/dL 0.57-1.25 (test code = 358) GLUCOSE RANDOM 88 mg/dL 70-105 (BEAKER) (test code = 652) CALCIUM (BEAKER) 9.6 mg/dL 8.4-10.2 (test code = 697) EGFR (BEAKER) (test 90 mL/min/1.73 ESTIMA ORESTES GFR IS code = 1092) sq m NOT ACCURATE CREATININE CLEARANCE IN PREDICTING GLOMERULAR FILTRATION RATE . ESTIMATED GFR I S NOT APPLICABLE FOR DIALYSIS PATIEN TS. Communications Intern ID - BSBASIC METABOLIC [id number] 06:29:00 Test Item Value Reference Range Interpretation Comments SODIUM (BEAKER) 135 meq/L 136-145 L (test code = 381) POTASSIUM (BEAKER) 3.8 meq/L 3.5-5.1 (test code = 379) CHLORIDE (BEAKER) 101 meq/L 98-107 (test code = 382) CO2 (BEAKER) (test 24 meq/L 22-29 code = 355) BLOOD UREA NITROGEN 5 mg/dL 7-21 L (BEAKER) (test code = 354) CREATININE (BEAKER) 0.52 mg/dL 0.57-1.25 L (test code = 358) GLUCOSE RANDOM 91 mg/dL 70-105 (BEAKER) (test code = 652) CALCIUM (BEAKER) 8.8 mg/dL 8.4-10.2 (test code = 697) EGFR (BEAKER) (test 115 mL/min/1.73 ESTIM ATED GFR IS code = 1092) sq m NOT ACCURATE CREATININE CLEARANCE IN PREDICTING GLOMERULAR FILTRATION RATE . ESTIMATED GFR I S NOT APPLICABLE FOR DIALYSIS PATIEN TS. Communications Intern ID - PIAYA LCBC (HEMOGRAM ONLY)2019-11-29 05:49:00 Test Item Value Reference Range Interpretation Comments WHITE BLOOD CELL COUNT (BEAKER) 6.0 K/ L 3.5-10.5 (test code = 775) RED BLOOD CELL COUNT (BEAKER) 3.76 M/ L 3.93-5.22 L (test code = 761) HEMOGLOBIN (BEAKER) (test code = 9.0 GM/DL 11.2-15.7 L 410) HEMATOCRIT (BEAKER) (test code = 29.2 % 34.1-44.9 L 411) MEAN CORPUSCULAR VOLUME (BEAKER) 77.7 fL 79.4-94.8 L (test code = 753) MEAN CORPUSCULAR HEMOGLOBIN 23.9 pg 25.6-32.2 L (BEAKER) (test code = 751) MEAN CORPUSCULAR HEMOGLOBIN CONC 30.8 GM/DL 32.2-35.5 L (BEAKER) (test code = 752) RED CELL DISTRIBUTION WIDTH 17.0 % 11.7-14.4 H (BEAKER) (test code = 412) PLATELET COUNT (BEAKER) (test 230 K/CU MM 150-450 code = 756) MEAN PLATELET VOLUME (BEAKER) 10.5 fL 9.4-12.3 (test code = 754) NUCLEATED RED BLOOD CELLS 0 /100 WBC 0-0 (BEAKER) (test code = 413) Prepare Leuko-Red [id number] 23:54:00 Test Item Value Reference Range Interpretation Comments CROSSMATCH (test code = 2264) COMPATIBLE Unit ABO (test code = O Pos 6607760) UNIT NUMBER (test code = [id number] 934-0) Status (test code = 0244032) TX_TIMEINCHART Blood Bank Product (test code RED BLOOD CELLS = 2263) PRODUCT CODE (test code = V8570Q27 933-2) [facility]HEMOGLOBIN AND [id number] 17:06:00 Test Item Value Reference Range Interpretation Comments HEMOGLOBIN (BEAKER) (test code = 9.0 GM/DL 11.2-15.7 L 410) HEMATOCRIT (BEAKER) (test code = 29.5 % 34.1-44.9 L 411) Communications Intern ID - [id number], CHEST, 1 VIEW, NON [id number] 16:34:00Reason for exam:->SOBShould this be performed at the bedside?->YesFINAL REPORT TECHNIQUE: Frontal view of the chest. INDICATION: SOB. COMPARISON: Chest radiograph from 11/27/2019. FINDINGS: LINES/TUBES: None. LUNGS: Streaky opacities in the left base. Pulmonary vascular congestion. No consolidation or pulmonary edema. PLEURA: No pneumothorax or significant pleural effusion. HEART AND MEDIASTINUM: The cardiac silhouette is normal in size. SOFT TISSUES AND BONES: Hardware in the right humeral head with likely adjacent lucency. Rightward convexcurvature of the thoracic spine. IMPRESSION: Pulmonary venous congestion. Subsegmental left basilaratelectasis. Hardware in the right humeral head with adjacent lucency from an indeterminate cause. Adedicated right shoulder radiograph should be considered. Signed: Jazmyn Kaye MDReport Verified Date/Time: 11/28/2019 16:34:26 Reading Location: [address] Body Reading Room XR chest 1 view portable / [id number] 16:34:00Interface, External Ris In - 11/28/2019 4:36 PM CDTFINAL REPORT TECHNIQUE: Frontal view of the chest. INDICATION: SOB. COMPARISON: Chest radiograph from 11/27/2019. FINDINGS: LINES/TUBES: None. LUNGS: Streaky opacities in the left base. Pulmonary vascular congestion. No consolidation or pulmonary edema. PLEURA: No pneumothorax or significant pleural effusion. HEART AND MEDIASTINUM: The cardiac silhouette is normal in size. SOFT TISSUES AND BONES: Hardware in the right humeralhead with likely adjacent lucency. Rightward convex curvature of the thoracic spine. IMPRESSION: Pulmonary venous congestion. Subsegmental left basilar atelectasis. Hardware in the right humeral head with adjacent lucency from an indeterminate cause. A dedicated right shoulder radiograph should be con sidered. Signed: Jazmyn Kaey MDReport Verified Date/Time: 11/28/2019 16:34:26 Reading Location: [facility] C[facility] CT Body Reading Room [facility] CenterRAD, FEMUR, MIN. 2 VIEWS, [id number] 16:29:00Reason for exam:->right leg pain, h/o R femur fracture s/p roddingFINAL REPORT History: Right leg pain, history of prior right femoral trauma. FINDINGS: Right femur series, two views: AP and lateral views of the right femur show an intramedullary toñito and a total right knee prosthesis both of which appear in anatomic alignment and well seated. There are no visible fractures or acute bone abnormalities identified. Limited appears to be irregularity related to an old fracture in the region of the femoral neck is seen. Surrounding soft tissues and other visible bones of the pelvis and distal right lower extremity are unremarkable. IMPRESSION: 1. No acute fractures or bone abnormalities. Surgical hardware in the right femur and a right knee prosthesis as described above. Signed: Taylor Alex MDReport Verified Date/Time: 11/28/2019 16:29:20 Reading Location: [address] Transitional Reading Room XR femur 2 views [id number] 16:29:00Interface, External Ris In - 11/28/2019 4:31 PM CDTFINAL REPORT History: Right leg pain, history of prior right femoral trauma. FINDINGS: Right femur series, two views: AP and lateral views of the right femur show an intramedullary toñito and a total right knee prosthesis both of which appear in anatomic alignment and well seated. There are no visible fractures or acute bone abnormalities identified. Limited appears to be irregularity related to an old fracture in the region of the femoral neck is seen. Surrounding soft tissues and other visible bones of the pelvis and distal right lower extremity are unremarkable. IMPRESSION: 1. No acute fractures or bone abnormalities. Surgical hardware in the right femur and a right knee prosthesis as described above. Signed: Taylor AlexMDReport Verified Date/Time: 11/28/2019 16:29:20 Reading Location: [facility] C013 Transitional Reading Room [facility] CenterBAT[facility] METABOLIC [id number] 05:49:00 Test Item Value Reference Range Interpretation Comments SODIUM (BEAKER) 137 meq/L 136-145 (test code = 381) POTASSIUM (BEAKER) 3.1 meq/L 3.5-5.1 L (test code = 379) CHLORIDE (BEAKER) 102 meq/L 98-107 (test code = 382) CO2 (BEAKER) (test 26 meq/L 22-29 code = 355) BLOOD UREA NITROGEN 5 mg/dL 7-21 L (BEAKER) (test code = 354) CREATININE (BEAKER) 0.50 mg/dL 0.57-1.25 L (test code = 358) GLUCOSE RANDOM 87 mg/dL 70-105 (BEAKER) (test code = 652) CALCIUM (BEAKER) 8.3 mg/dL 8.4-10.2 L (test code = 697) EGFR (BEAKER) (test 120 mL/min/1.73 ESTIM ATED GFR IS code = 1092) sq m NOT ACCURATE CREATININE CLEARANCE IN PREDICTING GLOMERULAR FILTRATION RATE . ESTIMATED GFR I S NOT APPLICABLE FOR DIALYSIS PATIEN TS. Communications Intern ID - PIAYA LSpecimen slightly ictericCBC (HEMOGRAM ONLY)2019-11-28 05:06:00 Test Item Value Reference Range Interpretation Comments WHITE BLOOD CELL COUNT (BEAKER) 6.6 K/ L 3.5-10.5 (test code = 775) RED BLOOD CELL COUNT (BEAKER) 3.53 M/ L 3.93-5.22 L (test code = 761) HEMOGLOBIN (BEAKER) (test code = 8.3 GM/DL 11.2-15.7 L 410) HEMATOCRIT (BEAKER) (test code = 27.1 % 34.1-44.9 L 411) MEAN CORPUSCULAR VOLUME (BEAKER) 76.8 fL 79.4-94.8 L (test code = 753) MEAN CORPUSCULAR HEMOGLOBIN 23.5 pg 25.6-32.2 L (BEAKER) (test code = 751) MEAN CORPUSCULAR HEMOGLOBIN CONC 30.6 GM/DL 32.2-35.5 L (BEAKER) (test code = 752) RED CELL DISTRIBUTION WIDTH 16.3 % 11.7-14.4 H (BEAKER) (test code = 412) PLATELET COUNT (BEAKER) (test 192 K/CU MM 150-450 code = 756) MEAN PLATELET VOLUME (BEAKER) 10.1 fL 9.4-12.3 (test code = 754) NUCLEATED RED BLOOD CELLS 0 /100 WBC 0-0 (BEAKER) (test code = 413) HEMOGLOBIN AND [id number] 21:43:00 Test Item Value Reference Range Interpretation Comments HEMOGLOBIN (BEAKER) (test code = 9.1 GM/DL 11.2-15.7 L 410) HEMATOCRIT (BEAKER) (test code = 29.2 % 34.1-44.9 L 411) Communications Intern ID - [id number] (HEMOGRAM ONLY)2019-11-27 07:28:00 Test Item Value Reference Range Interpretation Comments WHITE BLOOD CELL COUNT (BEAKER) 7.2 K/ L 3.5-10.5 (test code = 775) RED BLOOD CELL COUNT (BEAKER) 2.97 M/ L 3.93-5.22 L (test code = 761) HEMOGLOBIN (BEAKER) (test code = 6.9 GM/DL 11.2-15.7 L 410) HEMATOCRIT (BEAKER) (test code = 22.4 % 34.1-44.9 L 411) MEAN CORPUSCULAR VOLUME (BEAKER) 75.4 fL 79.4-94.8 L (test code = 753) MEAN CORPUSCULAR HEMOGLOBIN 23.2 pg 25.6-32.2 L (BEAKER) (test code = 751) MEAN CORPUSCULAR HEMOGLOBIN CONC 30.8 GM/DL 32.2-35.5 L (BEAKER) (test code = 752) RED CELL DISTRIBUTION WIDTH 15.7 % 11.7-14.4 H (BEAKER) (test code = 412) PLATELET COUNT (BEAKER) (test 179 K/CU MM 150-450 code = 756) MEAN PLATELET VOLUME (BEAKER) 10.2 fL 9.4-12.3 (test code = 754) NUCLEATED RED BLOOD CELLS 0 /100 WBC 0-0 (BEAKER) (test code = 413) RAD, CHEST, 1 VIEW, NON [id number] 05:41:00Reason for exam:->postop feverShould this be performed at the bedside?->YesFINAL REPORT Chest one view. Clinical history: postop fever Comparison: None. Technique: A single frontal view of the chest was obtained. Findings: The cardiomediastinal contours are stable. There is mild elevation of the right hemidiaphragm. There is mild discoid atelectasis in the left lung base. There is no pleural effusion or pneumothorax. Signed: Michael Jones MDReport Verified Date/Time: 11/27/2019 05:41:21 HEMOGLOBIN AND [id number] 22:51:00 Test Item Value Reference Range Interpretation Comments HEMOGLOBIN (BEAKER) (test code = 7.2 GM/DL 11.2-15.7 L 410) HEMATOCRIT (BEAKER) (test code = 23.7 % 34.1-44.9 L 411) Communications Intern ID - [id number] w/Microscopic + Reflex to [id number] 22:25:00 Test Item Value Reference Range Interpretation Comments Color, UA (test code Light Yellow = 5778-6) Clarity, UA (test Clear code = 5767-9) Specific [place], UA 1.004 1.001-1.035 (test code = 5811-5) pH, UA (test code = 6.5 5.0-8.0 5803-2) Protein, UA (test Negative Negative code = 65913-1) Glucose, UA (test Negative Negative code = 365) Ketones, UA (test Negative Negative code = 2514-8) Bilirubin, UA (test Negative Negative code = 97837-3) Blood, UA (test code Small Negative A = 86586-7) Nitrite, UA (test Negative Negative code = 5802-4) Leukocytes, UA (test Large Negative A code = 5799-2) Urobilinogen, UA 0.2 mg/dL 0.2-1 (test code = 42164-6) RBC, UA (test code = 2 See_Comment [Autom ated 15830-2) message] The system which generated this result transmitted reference range : /HPF. The reference range was not used to interpret this result as normal/abnormal . WBC, UA (test code = 36 See_Comment [Autom ated 5821-4) message] The system which generated this result transmitted reference range : /HPF. The reference range was not used to interpret this result as normal/abnormal . Bacteria, UA (test Occasional code = 16580-9) Squam Epithel, UA 3 See_Comment [Automate d (test code = 85957-3) messag e] The system which generated this result transmitted reference range : /HPF. The reference range was not used to interpret this result as normal/abnormal . Crystals, Urine (test Occasional code = 60118-6) Specimen Source (test code = 2795) UMU (test code = UMU) Communications Intern ID - [auto]Communications Intern ID - tech Lab Interpretation Abnormal (test code = 85907-8) [facility]LEX URINE [id number] 22:25:00 Test Item Value Reference Range Interpretation Comments COLOR (BEAKER) (test code = 470) Light Yellow CLARITY (BEAKER) (test code = Clear 469) SPECIFIC GRAVITY UA (BEAKER) 1.004 1.001-1.035 (test code = 468) PH UA (BEAKER) (test code = 467) 6.5 5.0-8.0 PROTEIN UA (BEAKER) (test code = Negative Negative 464) GLUCOSE UA (BEAKER) (test code = Negative Negative 365) KETONES UA (BEAKER) (test code = Negative Negative 371) BILIRUBIN UA (BEAKER) (test code Negative Negative = 462) BLOOD UA (BEAKER) (test code = Small Negative A 461) NITRITE UA (BEAKER) (test code = Negative Negative 465) LEUKOCYTE ESTERASE UA (BEAKER) Large Negative A (test code = 466) UROBILINOGEN UA (BEAKER) (test 0.2 mg/dL 0.2-1.0 code = 463) RBC UA (BEAKER) (test code = 2 /HPF 519) WBC UA (BEAKER) (test code = 36 /HPF 520) BACTERIA (BEAKER) (test code = Occasional 517) SQUAMOUS EPITHELIAL (BEAKER) 3 /HPF (test code = 516) CRYSTALS, URINE (BEAKER) (test Occasional code = 1521) SOURCE(BEAKER) (test code = 2795) Communications Intern ID - [auto]Communications Intern ID - techTransfusion Reaction Investigation 2019-11-26 13:17:00 Test Item Value Reference Range Interpretation Comments TRANSFUSION RX SEE COMMENT Hypotensive INVESTIGATION(BEAKER) transf usion reaction (test code = 2259) - patient IgA normal - therefore not c/w IgA deficiency as basis.Electroni c Signature: Sarthak Kauffman M.D. [facility] (HEMOGRAM ONLY)2019-11-26 05:16:00 Test Item Value Reference Range Interpretation Comments WHITE BLOOD CELL COUNT (BEAKER) 7.5 K/ L 3.5-10.5 (test code = 775) RED BLOOD CELL COUNT (BEAKER) 2.92 M/ L 3.93-5.22 L (test code = 761) HEMOGLOBIN (BEAKER) (test code = 6.4 GM/DL 11.2-15.7 L 410) HEMATOCRIT (BEAKER) (test code = 21.6 % 34.1-44.9 L 411) MEAN CORPUSCULAR VOLUME (BEAKER) 74.0 fL 79.4-94.8 L (test code = 753) MEAN CORPUSCULAR HEMOGLOBIN 21.9 pg 25.6-32.2 L (BEAKER) (test code = 751) MEAN CORPUSCULAR HEMOGLOBIN CONC 29.6 GM/DL 32.2-35.5 L (BEAKER) (test code = 752) RED CELL DISTRIBUTION WIDTH 15.5 % 11.7-14.4 H (BEAKER) (test code = 412) PLATELET COUNT (BEAKER) (test 164 K/CU MM 150-450 code = 756) MEAN PLATELET VOLUME (BEAKER) 10.6 fL 9.4-12.3 (test code = 754) NUCLEATED RED BLOOD CELLS 0 /100 WBC 0-0 (BEAKER) (test code = 413) Immunoglobulin A (IgA)2019-11-25 17:48:00 Test Item Value Reference Range Interpretation Comments IgA (test code = 2458-8) 98 mg/dL 63-484 UMU (test code = UMU) Communications Intern ID - NTP Lab Interpretation (test Normal code = 67514-7) [facility] HospitalIMMUNOGLOBULIN A (IGA)2019-11-25 17:48:00 Test Item Value Reference Range Interpretation Comments IMMUNOGLOBULIN A (IGA) (BEAKER) 98 mg/dL 63-484 (test code = 639) Communications Intern ID - NTPVitamin B12 and [id number] 17:24:00 Test Item Value Reference Range Interpretation Comments Vitamin B12 (test 409 pg/mL 213-816 code = 2132-9) Folate (test code = 7.60 ng/mL See_Comment [Automa orestes 2284-8) message] The system which generated this result transmit orestes reference range : >=7.00. The reference range was not used to interpret this result as normal/abnormal . UMU (test code = UMU) Communications Intern ID - BS Lab Interpretation Normal (test code = 16258-3) [facility] HospitalFERRITIN2020-08-27 17:24:00 Test Item Value Reference Range Interpretation Comments FERRITIN (BEAKER) (test code = 27.41 ng/mL 5.00-275.00 361) Communications Intern ID - BSVITAMIN B12 AND [id number] 17:24:00 Test Item Value Reference Range Interpretation Comments VITAMIN B12 (BEAKER) (test code = 409 pg/mL 213-816 774) FOLATE (BEAKER) (test code = 362) 7.60 ng/mL >=7.00 Communications Intern ID - BSIRON, TIBC, % SAT. (WITHOUT FERRITIN)2019-11-25 16:50:00 Test Item Value Reference Range Interpretation Comments IRON (BEAKER) (test code = 547) 13.0 ug/dL 40.0-160.0 L TOTAL IRON BINDING CAPACITY 306 ug/dL 250-450 (BEAKER) (test code = 769) IRON % SATURATION (2) (BEAKER) 4 % 20-55 L (test code = 2590) Communications Intern ID - BSHEMOGLOBIN AND [id number] 13:28:00 Test Item Value Reference Range Interpretation Comments HEMOGLOBIN (BEAKER) (test code = 6.1 GM/DL 11.2-15.7 L 410) HEMATOCRIT (BEAKER) (test code = 20.4 % 34.1-44.9 L 411) Communications Intern ID - [id number] METABOLIC [id number] 06:11:00 Test Item Value Reference Range Interpretation Comments SODIUM (BEAKER) 133 meq/L 136-145 L (test code = 381) POTASSIUM (BEAKER) 3.9 meq/L 3.5-5.1 (test code = 379) CHLORIDE (BEAKER) 103 meq/L 98-107 (test code = 382) CO2 (BEAKER) (test 22 meq/L 22-29 code = 355) BLOOD UREA NITROGEN 10 mg/dL 7-21 (BEAKER) (test code = 354) CREATININE (BEAKER) 0.60 mg/dL 0.57-1.25 (test code = 358) GLUCOSE RANDOM 97 mg/dL 70-105 (BEAKER) (test code = 652) CALCIUM (BEAKER) 8.0 mg/dL 8.4-10.2 L (test code = 697) EGFR (BEAKER) (test 97 mL/min/1.73 ESTIMA ORESTES GFR IS code = 1092) sq m NOT ACCURATE CREATININE CLEARANCE IN PREDICTING GLOMERULAR FILTRATION RATE . ESTIMATED GFR I S NOT APPLICABLE FOR DIALYSIS PATIEN TS. Communications Intern ID - NTPCBC (HEMOGRAM ONLY)2019-11-25 05:48:00 Test Item Value Reference Range Interpretation Comments WHITE BLOOD CELL COUNT (BEAKER) 6.0 K/ L 3.5-10.5 (test code = 775) RED BLOOD CELL COUNT (BEAKER) 2.78 M/ L 3.93-5.22 L (test code = 761) HEMOGLOBIN (BEAKER) (test code = 6.1 GM/DL 11.2-15.7 L 410) HEMATOCRIT (BEAKER) (test code = 20.6 % 34.1-44.9 L 411) MEAN CORPUSCULAR VOLUME (BEAKER) 74.1 fL 79.4-94.8 L (test code = 753) MEAN CORPUSCULAR HEMOGLOBIN 21.9 pg 25.6-32.2 L (BEAKER) (test code = 751) MEAN CORPUSCULAR HEMOGLOBIN CONC 29.6 GM/DL 32.2-35.5 L (BEAKER) (test code = 752) RED CELL DISTRIBUTION WIDTH 14.9 % 11.7-14.4 H (BEAKER) (test code = 412) PLATELET COUNT (BEAKER) (test 144 K/CU MM 150-450 L code = 756) MEAN PLATELET VOLUME (BEAKER) 11.1 fL 9.4-12.3 (test code = 754) NUCLEATED RED BLOOD CELLS 0 /100 WBC 0-0 (BEAKER) (test code = 413) FL, FLUORO, NON-SPECIFIC, UP TO 1 [id number] 16:48:31Reason for exam:- >left femur fractureFluoroscopic unit utilized for a procedure performed in the OR. No interpretation was requested. Refer to the operative report for findings. Refer to PACS for patient radiation dose information.ECG 12 lead 2019-11-24 16:42:13Interface, External Ris In - 11/24/2019 4:42 PM CDTVentricular Rate 102 BPMAtrial Rate 102 BPMP-R Interval 164 msQRS Duration 82 msQ-T Interval 340 msQTC Calculation(Bazett) 443 msP [place] 49 degreesR [place] 4 degreesT [place] 25 degreesSinus tachycardiaOtherwise normal ECGWhen compared with ECG of 30-NOV-2016 21:15,No significant change was foundConfirmed by MD Plata Roberto ([id number]) on 11/24/2019 4:42:10 [facility] CenterABORH, [id number] 14:28:00 Test Item Value Reference Range Interpretation Comments ABO Grouping (test code = 2588) O Rh Factor (test code = 2589) [facility])2019-11-24 13:32:00 Test Item Value Reference Range Interpretation Comments SARS-COV2/RT-PCR (test Negative Not Detected, Negative, code = 8868335) See external report for linked test SARS-COV-2 PERFORMING LAB [facility] KAILYN (test code = 0810896) Negative result for this test determines that SARS-CoV-2 RNA was not present in the specimen above the Limit of Detection (LOD). However, Negative results do not preclude SARS-CoV-2 infection and should not be used as the sole basis for treatment or patient management decisions. Negative results mustbe combined with clinical observations, patient history, and epidemiological information. A false negative result may occur if a specimen is improperly collected, transported or handled. A false negative result should be considered if patient's recent exposures or clinical presentation indicate that COVID-19 (SARS-CoV-2) is likely and diagnostic tests for other causes of illness are negative. Re-testing should be considered in cases of suspected false negatives.The limit of detection for this assay is 800 copies/mL.This SARS CoV-2 test is a real-time RT-PCR test intended for the qualitative detection of nucleic acid from SARS-CoV-2 in a nasopharyngeal swab specimen collected from individuals susp ected of COVID-19 by their healthcare provider.This test has not been Food and Drug Administration (FDA) cleared or approved. This is a modified version of an approved Emergency Use Authorization (EUA) and is in the process of review by the FDA. Once authorized by the FDA, the issued EUA will be effective until the declaration that circumstances exist justifying the authorization of the emergency use of in vitro diagnostic tests for detection and/or diagnosis of COVID-19 is terminated under Section 564(b)(2) of the Act or the EUA is revoked under Section 564(g) of the Act.Fact Sheet for Healthcare Providers:https://www.otelz.com/sites/default/files/product/documents/Fact_Shee p_UF_Rkkbbatwi_Qrmv_QPFY-FoB-5.pdfFact Sheet for Healthcare Patients:https://www.otelz.com/sites/default/files/product/ documents/Kedz_Pqkai_Sukrdksg_Rqnz_DYWH-VpS-0.pdfPerforming Laboratory:[facility], [place] [address]Xxovbh doppler legs [id number] 08:01:54Ejection FractionSST. LUKE'S [facility] ECHO HEARTLAB MKCKESSON CPACSRight Impression1. There is no deep venous obstruction in the common femoral, profundafemoral, femoral, popliteal or posterior tibial veins.2. The peroneal veins could not be visualized.3. There is no superficial venous obstruction in the great saphenous vein.Left Impression1. There is no deep venous obstruction in the common femoral, profundafemoral, femoral, popliteal or posterior tibial veins.2. The peroneal veins could not be visualized.3. Thereis no superficial venous obstruction in the great saphenous vein. Conclusions Summary Venous duplex imaging and compression of the bilateral lower extremities were performed. The veins were adequately visualized. The bilateral venous systems were patent and compressible with no evidence of thrombus. The venous Doppler waveforms were phasic with respiration. Signature Velocities are measured in cm/s ; Diameters are measured in cm Interface, External Ris In - 11/24/2019 8:02 AM CDTPV LAB - Lower Extremities DVT Study Demographics Patient Name BRO GRIMM Date of Study 11/23/2019 Age 74 Visit [id number] Gender Female Accession Number [id number] Date of 1945 Referring Ruba Gruber, Room Number 1634 Physician [employer] Kayleigh Broussard, Interpreting Ruba Mirza, T Physician ProcedureType of Study: Veins: Lower Extremities DVT Study, VENOUS DOPPLER LEG, BILATERAL. Indications for Study:Bilateral leg swelling.Patient Status:TODAY.Study Location:Portable.Technical Quality:Adequate visualization.Risk FactorsHistory of Disease+ +- ---+ +!Diagnosis !Date!Comments !+ +----+ +!History/Risk Factors:! !HTN, Lumbar Fracture , Recent Fall (09/2016) !+ + ----+ +ImpressionsRight Impression1. There is no deep venous obstruction in the common femoral, profundafemoral, femoral, popliteal or posterior tibial veins.2. The peroneal veins could not be visualized.3. There is no superficial venous obstruction in thegreat saphenous vein.Left Impression1. There is no deep venous obstruction in the common femoral, profundafemoral, femoral, popliteal or posterior tibial veins.2. The peroneal veins could not be visualized.3. There is no superficial venous obstruction in the great saphenous vein. Conclusions SummaryVenous duplex imaging and compression of the bilateral lower extremities were performed. The veins were adequately visualized. The bilateral venous systems were patent and compressible with no evidenceof thrombus. The venous Doppler waveforms were phasic with respiration. Signature Velocities are measured in cm/s ; Diameters are measured in [facility] Vitamin D, 47-[id number] 05:19:00 Test Item Value Reference Range Interpretation Comments Vitamin D 25-Hydroxy 25.5 ng/mL 6.6-49.9 (test code = 2764) UMU (test code = UMU) Effective 01/08/2017: Reference Range ChangeNew: 6.6-49.9 ng/mL Previous: 13.0-47.8 ng/mL Recommended Vitamin D Target Range: 30.0-40.0 ng/mLOperator ID - PIAYA L Lab Interpretation (test Normal code = 19056-0) [facility] HospitalVITAMIN D, 48-[id number] 05:19:00 Test Item Value Reference Range Interpretation Comments VITAMIN D 25-OH (BEAKER) (test 25.5 ng/mL 6.6-49.9 code = 2764) Effective 01/08/2017: Reference Range ChangeNew: 6.6-49.9 ng/mL Previous: 13.0-47.8 ng/mLRecommended Vitamin D Target Range: 30.0-40.0 ng/mLOperator ID Roberto PIAYA LBASIC METABOLIC [id number] 05:16:00 Test Item Value Reference Range Interpretation Comments SODIUM (BEAKER) 131 meq/L 136-145 L (test code = 381) POTASSIUM (BEAKER) 3.5 meq/L 3.5-5.1 (test code = 379) CHLORIDE (BEAKER) 98 meq/L 98-107 (test code = 382) CO2 (BEAKER) (test 24 meq/L 22-29 code = 355) BLOOD UREA NITROGEN 8 mg/dL 7-21 (BEAKER) (test code = 354) CREATININE (BEAKER) 0.56 mg/dL 0.57-1.25 L (test code = 358) GLUCOSE RANDOM 99 mg/dL 70-105 (BEAKER) (test code = 652) CALCIUM (BEAKER) 8.5 mg/dL 8.4-10.2 (test code = 697) EGFR (BEAKER) (test 105 mL/min/1.73 ESTIM ATED GFR IS code = 1092) sq m NOT ACCURATE CREATININE CLEARANCE IN PREDICTING GLOMERULAR FILTRATION RATE . ESTIMATED GFR I S NOT APPLICABLE FOR DIALYSIS PATIEN TS. Communications Intern ID - EDASICBC (HEMOGRAM ONLY)2019-11-24 04:48:00 Test Item Value Reference Range Interpretation Comments WHITE BLOOD CELL COUNT (BEAKER) 7.2 K/ L 3.5-10.5 (test code = 775) RED BLOOD CELL COUNT (BEAKER) 3.60 M/ L 3.93-5.22 L (test code = 761) HEMOGLOBIN (BEAKER) (test code = 7.9 GM/DL 11.2-15.7 L 410) HEMATOCRIT (BEAKER) (test code = 26.3 % 34.1-44.9 L 411) MEAN CORPUSCULAR VOLUME (BEAKER) 73.1 fL 79.4-94.8 L (test code = 753) MEAN CORPUSCULAR HEMOGLOBIN 21.9 pg 25.6-32.2 L (BEAKER) (test code = 751) MEAN CORPUSCULAR HEMOGLOBIN CONC 30.0 GM/DL 32.2-35.5 L (BEAKER) (test code = 752) RED CELL DISTRIBUTION WIDTH 14.9 % 11.7-14.4 H (BEAKER) (test code = 412) PLATELET COUNT (BEAKER) (test 144 K/CU MM 150-450 L code = 756) MEAN PLATELET VOLUME (BEAKER) 11.1 fL 9.4-12.3 (test code = 754) NUCLEATED RED BLOOD CELLS 0 /100 WBC 0-0 (BEAKER) (test code = 413) RAD, FEMUR, MIN. 2 VIEWS, [id number] 18:43:00Reason for exam:->hip fracture, eval distal extentFINAL REPORT RAD, FEMUR, MIN. 2 VIEWS, LEFT TECHNIQUE: 4 radiographs of left femur HISTORY: hip fracture, eval distal extent. COMPARISON: None IMPRESSION:1.Acute comminuted and mildly displaced intertrochanteric left femur fracture with mild resultant varus angulation.2.Partially visualized right total knee arthroplasty. Mild degenerative changes of the left knee and hip.3.A large radiodense tubular object projects over the proximal left thigh, of uncertain clinical significance but appears to be external to the patient on lateral. Signed: Audie Franco Verified Date/Time: 11/23/2019 18:43:46 Reading Location: [address] Reading Room XR femur 2 views [id number] 18:43:00Interface, External Ris In - 11/23/2019 6:46 PM CDTFINAL REPORT RAD, FEMUR, MIN. 2 VIEWS, LEFT TECHNIQUE: 4 radiographs of left femur HISTORY: hip fracture, eval distal extent. COMPARISON: None IMPRESSION:1.Acute comminuted and mildly displaced intertrochanteric left femur fracture with mild resultant varus angulation.2.Partially visualized right total knee arthroplasty. Mild d egenerative changes of the left knee and hip.3.A large radiodense tubular object projects over the proximal left thigh, of uncertain clinical significance but appears to be external to the patient on lateral. Signed: Audie Franco Verified Date/Time: 11/23/2019 18:43:46 Reading Location: [facility] [id number] Transitional Reading [facility] [id number] 12:57:00 Test Item Value Reference Range Interpretation Comments SODIUM (BEAKER) 133 meq/L 136-145 L (test code = 381) POTASSIUM (BEAKER) 3.6 meq/L 3.5-5.1 (test code = 379) CHLORIDE (BEAKER) 100 meq/L 98-107 (test code = 382) CO2 (BEAKER) (test 25 meq/L 22-29 code = 355) BLOOD UREA NITROGEN 10 mg/dL 7-21 (BEAKER) (test code = 354) CREATININE (BEAKER) 0.59 mg/dL 0.57-1.25 (test code = 358) GLUCOSE RANDOM 101 mg/dL 70-105 (BEAKER) (test code = 652) CALCIUM (BEAKER) 8.8 mg/dL 8.4-10.2 (test code = 697) EGFR (BEAKER) (test 99 mL/min/1.73 ESTIMA ORESTES GFR IS code = 1092) sq m NOT ACCURATE CREATININE CLEARANCE IN PREDICTING GLOMERULAR FILTRATION RATE . ESTIMATED GFR I S NOT APPLICABLE FOR DIALYSIS PATIEN TS. Communications Intern ID - NTPProthrombin time/[id number] 12:45:00 Test Item Value Reference Interpretation Comments Range Protime (test code = 14.0 See_Comment [Autom ated 5182-2) message] The system which generated this result transmitted reference range : 11.9 - 14.2 seconds. The reference range was not used to interpret this result as normal/abnormal . INR (test code = 1.11 See_Comment [Automated 2581-6) message] The system which generated this result transmitted reference range : <=5.90. The reference range was not used to interpret this result as normal/abnormal . UMU (test code = Effective 08/26/2018: UMU) PT Reference Range ChangeNew: 11.9-14.2 Previous: 11.7-14.7 RECOMMENDED COUMADIN/WARFARIN INR THERAPY RANGESSTANDARD DOSE: 2.0-3.0 Includes: PROPHYLAXIS for venous thrombosis, systemic embolization; TREATMENT for venous thrombosis and/or pulmonary embolus.HIGH RISK: Target INR is 2.5-3.5 for patients wiht mechanical heart valves. Lab Interpretation Normal (test code = 30856-0) [id number] 12:45:00 Test Item Value Reference Range Interpretation Comments PROTIME (BEAKER) (test code = 14.0 seconds 11.9-14.2 759) INR (BEAKER) (test code = 370) 1.11 <=5.90 Effective 08/26/2018: PT Reference Range ChangeNew: 11.9-14.2 Previous: 11.7- 14.7RECOMMENDED COUMADIN/WARFARIN INR THERAPY RANGESSTANDARD DOSE: 2.0-3.0 Includes: PROPHYLAXIS for venous thrombosis, systemic embolization; TREATMENT for venous thrombosis and/or pulmonary embolus.HIGH RISK: Target INR is2.5-3.5 for patients wiht mechanical heart valves.CBC W/PLT COUNT & AUTO [id number] 12:42:00 Test Item Value Reference Range Interpretation Comments WHITE BLOOD CELL COUNT (BEAKER) 7.8 K/ L 3.5-10.5 (test code = 775) RED BLOOD CELL COUNT (BEAKER) 3.71 M/ L 3.93-5.22 L (test code = 761) HEMOGLOBIN (BEAKER) (test code = 8.2 GM/DL 11.2-15.7 L 410) HEMATOCRIT (BEAKER) (test code = 27.1 % 34.1-44.9 L 411) MEAN CORPUSCULAR VOLUME (BEAKER) 73.0 fL 79.4-94.8 L (test code = 753) MEAN CORPUSCULAR HEMOGLOBIN 22.1 pg 25.6-32.2 L (BEAKER) (test code = 751) MEAN CORPUSCULAR HEMOGLOBIN CONC 30.3 GM/DL 32.2-35.5 L (BEAKER) (test code = 752) RED CELL DISTRIBUTION WIDTH 14.9 % 11.7-14.4 H (BEAKER) (test code = 412) PLATELET COUNT (BEAKER) (test 153 K/CU MM 150-450 code = 756) MEAN PLATELET VOLUME (BEAKER) 10.8 fL 9.4-12.3 (test code = 754) NUCLEATED RED BLOOD CELLS 0 /100 WBC 0-0 (BEAKER) (test code = 413) NEUTROPHILS RELATIVE PERCENT 81 % (BEAKER) (test code = 429) LYMPHOCYTES RELATIVE PERCENT 10 % (BEAKER) (test code = 430) MONOCYTES RELATIVE PERCENT 9 % (BEAKER) (test code = 431) EOSINOPHILS RELATIVE PERCENT 0 % (BEAKER) (test code = 432) BASOPHILS RELATIVE PERCENT 0 % (BEAKER) (test code = 437) NEUTROPHILS ABSOLUTE COUNT 6.31 K/ L 1.56-6.13 H (BEAKER) (test code = 670) LYMPHOCYTES ABSOLUTE COUNT 0.77 K/ L 1.18-3.74 L (BEAKER) (test code = 414) MONOCYTES ABSOLUTE COUNT (BEAKER) 0.70 K/ L 0.24-0.36 H (test code = 415) EOSINOPHILS ABSOLUTE COUNT 0.01 K/ L 0.04-0.36 L (BEAKER) (test code = 416) BASOPHILS ABSOLUTE COUNT (BEAKER) 0.02 K/ L 0.01-0.08 (test code = 417) IMMATURE GRANULOCYTES-RELATIVE 0 % 0-1 PERCENT (BEAKER) (test code = 2801) SARS coronavirus 2 RNA [Presence] in Respiratory specimen by MARY with probe [id number] 11:18:57 Test Item Value Reference Range Interpretation Comments SARS coronavirus 2 RNA Not detected Not-Detected [Presence] in Respiratory specimen by MARY with probe detection (test code = 58598-6) SARS coronavirus 2 RNA [Presence] in Respiratory specimen by MARY with probe [id number] 13:06:05 Test Item Value Reference Range Interpretation Comments SARS coronavirus 2 RNA Not detected Not-Detected [Presence] in Respiratory specimen by MARY with probe detection (test code = 13165-5) ANG, KYPHOPLASTY, LUMBAR, [id number] 08:42:00What level(s) should be performed->L4-5Reason for exam:->COMPRESSION [...] MDReport Verified Date/Time: 12/11/2016 08:42:31 Reading Location: [place] [address] Angio Body Reading Room 08:42 AMBUN AND [id number] 06:18:00 Test Item Value Reference Range Interpretation [...] (BEAKER) (test code = 413) BASIC METABOLIC [id number] 06:49:00 Test Item Value Reference Range Interpretation [...] 697) EGFR (BEAKER) (test 98 mL/min/1.73 ESTIMA ORESTES GFR IS code = 1092) sq m NOT ACCURATE CREATININE CLEARANCE IN PREDICTING GLOMERULAR FILTRATION RATE . ESTIMATED GFR I S NOT APPLICABLE FOR DIALYSIS PATIEN TS. PROTHROMBIN [id number] 06:31:00 Test Item Value Reference Range Interpretation Comments PROTIME (BEAKER) (test code = 13.4 seconds 11.7-14.7 759) INR (BEAKER) (test code = 370) 1.0 <=5.9 RECOMMENDED COUMADIN/WARFARIN INR THERAPY RANGESSTANDARD DOSE: 2.0 - 3.0 Includes: PROPHYLAXIS forvenous thrombosis, systemic embolization; TREATMENT for venous thrombosis and/or pulmonary embolus.HIGH RISK: Target INR is 2.5-3.5 for patients with mechanical heart valves.[id number] 06:31:00 Test Item Value Reference Range Interpretation Comments PARTIAL THROMBOPLASTIN TIME 26.2 seconds 22.5-36.0 (BEAKER) (test code = 760) CBC W/PLT COUNT & AUTO [id number] 06:23:00 Test Item Value Reference Range Interpretation [...] 0-1 PERCENT (BEAKER) (test code = 2801) MYOCARD IMAGING, MULTI, PHARM, [id number] 14:11:00Please do D SPECT camera for this patient Reason for exam:->Chest PainFINAL REPORT PROCEDURE: Rest/Stress MYOCARDIAL PERFUSION SPECT with regad enoson\\XA9\\ CPT CODE: 38867 INDICATION: Chest pain, acute, nonspecific, low probability [...] Normal extracardiac tracer distribution. 6. No previous [facility] study for comparison. NONINVASIVE RISK STRATIFICATION: The above findings are considered low risk (<1% annual mortality rate) based on the following criterion:- Normal or small myocardial perfusion defect at rest or with stres s(JACC. 2012;59(9):857-81.) Signed: Shweta Lockhart Verified Date/Time: 12/04/2016 14:11:13 Reading Location: [address] Reading Room RAD, SPINE, SCOLIOSIS STUDY, 2 OR 3 [id number] 16:17:00Reason for exam:- >scoliosis of lumbar spine, [...] component in the lumbar spine. Signed: Kamaljit Wueport Verified Date/Time: 12/03/2016 16:17:14 Reading Location: [facility] Radiology ReadingRoom MR, BRAIN, [id number] 09:02:00FINAL REPORT MRI brain with and without contrast Comparison: None Reason for exam: Neoplasm, [employer] primary, calcified meningioma Discussion: Multiplanar MR imaging of the brain was provided [id number] IV gadolinium administration using T1, T2, FLAIR, T2 star, diffusion weighted sequences, and ADC map imaging. There are no intracranial hematomas, definitive masses, hydrocephalus, shift, or extra-axial collections. There are no areas of abnormal enhancement or abnormal diffusion restriction. There is suspected bilateral irregular hyperostosis from talus as well as foc al ossification along the right-sided anterior frontal region [...] Rodriguez Verified Date/Time: 12/03/2016 09:02:27 Reading Location: [address] Neuro Reading Room [id number] 05:45:00 Test Item Value Reference Range Interpretation Comments MAGNESIUM (BEAKER) (test code = 1.8 mg/dL 1.6-2.6 627) BASIC METABOLIC [id number] 05:45:00 Test Item Value Reference Range Interpretation [...] PATIEN TS. CBC W/PLT COUNT & AUTO [id number] 05:31:00 Test Item Value Reference Range Interpretation [...] PERCENT (BEAKER) (test code = 2801) TROPONIN [id number] 01:13:00 Test Item Value Reference Range Interpretation Comments TROPONIN I (BEGLORIA) (test code = 397) < ng/mL 0.00-0.03 [...] acidosis, acute neurological disease, and persistent tachyarrhythmia.TROPONIN [id number] 19:15:00 Test Item Value Reference Range Interpretation [...] acidosis, acute neurological disease, and persistent tachyarrhythmia.TROPONIN [id number] 12:09:00 Test Item Value Reference Range Interpretation [...] renalfailure, acidosis, acute neurological disease, and persistent tachyarrhythmia.[id number] 06:18:00 Test Item Value Reference Range Interpretation Comments MAGNESIUM (BEAKER) (test code = 1.7 mg/dL 1.6-2.6 627) BASIC METABOLIC [id number] 06:18:00 Test Item Value Reference Range Interpretation [...] PATIEN TS. CBC W/PLT COUNT & AUTO [id number] 05:54:00 Test Item Value Reference Range Interpretation [...] 0-1 PERCENT (BEAKER) (test code = 2801) [id number] 10:28:00 Test Item Value Reference Range Interpretation Comments MAGNESIUM (BEAKER) (test code = 1.6 mg/dL 1.6-2.6 627) BASIC METABOLIC [id number] 10:28:00 Test Item Value Reference Range Interpretation [...] 697) EGFR (BEAKER) (test 91 mL/min/1.73 ESTIMA ORESTES GFR IS code = 1092) sq m NOT ACCURATE CREATININE CLEARANCE IN PREDICTING GLOMERULAR FILTRATION RATE . ESTIMATED GFR I S NOT APPLICABLE FOR DIALYSIS PATIEN TS. LIPID [id number] 10:28:00 Test Item Value Reference Range Interpretation [...] Borderline 130-159 High 160-189 Very High >=190PROTHROMBIN [id number] 10:22:00 Test Item Value Reference Range Interpretation [...]
[2020-09-15 21:20] LABS: Absolute Lymphocytes (CBC) 0.9 K/uL (0.7-4.9); Basophils % 0.4 % (0-1.3); Hematocrit 36.9 % (36.0-45.0); Lymphocytes % 12.1 % (15.3-44.8); RBC Red Blood Cell Count 4.37 M/uL (3.86-4.86)
[2020-09-15 21:26] LABS: Protime INR 1.08
[2020-09-15 21:35] LABS: ALT/SGPT 85 U/L (12-78); AST/SGOT 67 U/L (15-37); Albumin 3.7 g/dL (3.4-5.0); Alkaline Phosphatase 82 U/L (45-117); BUN Blood Urea Nitrogen 9 mg/dL (7-18); Bicarbonate 27 mmol/L (21-32); Bilirubin Direct 0.7 mg/dL (0-0.2); Bilirubin Total 2.5 mg/dL (0.2-1.0); Glucose Level 91 mg/dL (74-106); Potassium 3.4 mmol/L (3.5-5.1); Protein, Total 8.2 g/dL (6.4-8.2); Sodium Level 133 mmol/L (136-145)
[2020-09-15] MEDS ORDERED: CLINDAMYCIN 600MG/D5W 600 MG/50 ML BAG IV ONE (22:24)
--- NOTE | 2020-09-15 23:09 | EDPHYS ---
Physician Documentation [facility] Name: Arianne Ambriz Age: 74 yrs Sex: Female : 1945 Arrival Date: 09/15/2020 Time: 20:10 Bed 8 Private MD: [facility] ED Physician Albert Tong HPI: 09/15 22:03 This 74 yrs old Female presents to ER via Wheelchair with complaints of Foot mh7 Pain and Redness. 22:04 The patient presents with pain, that is chronic, swelling, redness. The complaints mh7 affect the left leg. Context: The problem was sustained at an unknown site, resulted from an unknown cause, Denies any injuries, the patient can fully bear weight, the patient is able to ambulate, without difficulty, Problem is a result from a previous injury: No. Onset: The symptoms/episode began/occurred 2 week(s) ago. Modifying factors: The symptoms are alleviated by nothing. the symptoms are aggravated by nothing. Associated signs and symptoms: Pertinent positives: calf tenderness, swelling, warmth, Pertinent negatives fever, nausea, numbness, rash, tingling, vomiting, weakness. Treatment prior to arrival includes: no previous treatment. Severity of symptoms: At their worst the symptoms were moderate, 7 day(s) ago, in the emergency department the symptoms are unchanged. The patient has experienced similar episodes in the past, several times. Historical: - Allergies: 20:24 butorphanol; ca1 20:24 Ciprofloxacin (DIZZINESS); ca1 20:24 Erythromycin; ca1 20:24 Levaquin; ca1 20:24 Neurontin; ca1 20:24 GABAPENTIN; ca1 20:24 Stadol; (cardiac arrest); ca1 20:24 TETRACYCLINES; ca1 - PMHx: 20:24 Arthritis; Back pain; William hip bursitis; Chronic pain; Complication of anesthesia; DVT; ca1 GERD; Hypertension; - PSHx: 20:24 Back fx x3; shoulder sx; Knee surgery; R hip sx; ca1 - Immunization history:: Client reports having NOT received the Covid vaccine. Pneumococcal vaccine is not up to date, Flu vaccine is not up to date. - Social history:: Smoking status: Patient/guardian denies using tobacco, the patient reports quitting approximately 50 years ago. ROS: 22:04 Constitutional: Negative for fever, chills, and weight loss, Eyes: Negative for injury, mh7 pain, redness, and discharge, ENT: Negative for injury, pain, and discharge, Neck: Negative for injury, pain, and swelling, Cardiovascular: Negative for chest pain, palpitations, and edema, Respiratory: Negative for shortness of breath, cough, wheezing, and pleuritic chest pain, Abdomen/GI: Negative for abdominal pain, nausea, vomiting, diarrhea, and constipation, Back: Negative for injury and pain, : Negative for injury, bleeding, discharge, and swelling, Neuro: Negative for headache, weakness, numbness, tingling, and seizure, Psych: Negative for depression, anxiety, suicide ideation, homicidal ideation, and hallucinations, Allergy/Immunology: Negative for hives, rash, and allergies, Endocrine: Negative for neck swelling, polydipsia, polyuria, polyphagia, and marked weight changes, Hematologic/Lymphatic: Negative for swollen nodes, abnormal bleeding, and unusual bruising. Exam: 22:07 Constitutional: This is a well developed, well nourished patient who is awake, alert, mh7 and in no acute distress. Head/Face: Normocephalic, atraumatic. Eyes: Pupils equal round and reactive to light, extra-ocular motions intact. Lids and lashes normal. Conjunctiva and sclera are non-icteric and not injected. Cornea within normal limits. Periorbital areas with no swelling, redness, or edema. Neck: Trachea midline, no thyromegaly or masses palpated, and no cervical lymphadenopathy. Supple, full range of motion without nuchal rigidity, or vertebral point tenderness. No Meningismus. Chest/axilla: Normal chest wall appearance and motion. Nontender with no deformity. No lesions are appreciated. Cardiovascular: Regular rate and rhythm with a normal S1 and S2. No gallops, murmurs, or rubs. Normal PMI, no JVD. No pulse deficits. Respiratory: Lungs have equal breath sounds bilaterally, clear to auscultation and percussion. No rales, rhonchi or wheezes noted. No increased work of breathing, no retractions or nasal flaring. Abdomen/GI: Soft, non-tender, with normal bowel sounds. No distension or tympany. No guarding or rebound. No evidence of tenderness throughout. Back: No spinal tenderness. No costovertebral tenderness. Full range of motion. 22:07 Neuro: Awake and alert, GCS 15, oriented to person, place, time, and situation. Cranial nerves II-XII grossly intact. Motor strength 5/5 in all extremities. Sensory grossly intact. Cerebellar exam normal. Normal gait. Psych: Awake, alert, with orientation to person, place and time. Behavior, mood, and affect are within normal limits. 22:07 Musculoskeletal/extremity: Extremities: noted in the left leg: erythema, swelling, tenderness, ROM: intact in all extremities, Circulation is intact in all extremities. Sensation intact. Compartment Syndrome exam of affected extremity: is normal. no numbness, no tingling, no sensation deficit, no palor, no weak pulses, Joints: All joints appear normal with full range of motion. Weight bearing: able to fully bear weight, without difficulty, Tendon exam: specific tendon testing normal through active and passive range of motion DVT Exam: swelling, that is moderate, of the left leg, tenderness, that is mild, of the left leg, erythema, that is moderate, of the left leg, increased warmth, of the left leg, Calves: 22:07 Skin: cellulitis, that is moderate, well demarcated, on the left leg. Vital Signs: 20:21 BP 119 / 83; Pulse 88; Resp 16 S; Temp 97.2(TE); Pulse Ox 99% on R/A; Weight 58.06 kg ca1 (R); Height 5 ft. 4 in. (162.56 cm) (R); Pain 10/10; 23:14 BP 110 / 73; Pulse 75; Resp 18; Pulse Ox 98% on R/A; ak2 20:21 Body Mass Index 21.97 (58.06 kg, 162.56 cm) ca1 MDM: 23:07 Differential diagnosis: cellulitis, DVT. Data reviewed: vital signs, nurses notes, old [facility] medical records, lab test result(s), CBC, electrolytes, radiologic studies, ultrasound. Data interpreted: Pulse oximetry: on room air is 99 %. Interpretation: normal. Counseling: I had a detailed discussion with the patient and/or guardian regarding: the historical points, exam findings, and any diagnostic results supporting the discharge/admit diagnosis, lab results, radiology results, the need for outpatient follow up, to return to the emergency department if symptoms worsen or persist or if there are any questions or concerns that arise at home. Response to treatment: the patient's symptoms have markedly improved after treatment. 23:[address] [facility] 09/15 20:56 Order name: CBC with Diff; Complete Time: 22:00 [facility] 09/15 20:56 Order name: Basic Metabolic Panel; Complete Time: 22:00 [facility] 09/15 20:56 Order name: LFT's; Complete Time: 22:00 [facility] 09/15 20:56 Order name: Protime (+inr); Complete Time: 22:00 [facility] 09/15 20:56 Order name: Ptt, Activated; Complete Time: 22:00 [facility] 09/15 20:56 Order name: Blood Culture Adult (2) [facility] 09/15 20:56 Order name: US Extremity Venous Unilateral Ltd [facility] 09/15 20:56 Order name: Saline Lock [facility] Administered Medications: 22:05 Drug: Clindamycin 600 mg Route: IVPB; Infused Over: 30 mins; Site: right antecubital; ak2 Disposition: 09/15/20 23:08 Discharged to Home. Impression: Cellulitis, Left Lower Extremity. - Condition is Stable. - Discharge Instructions: Cellulitis, Adult, [id number]. - Prescriptions for Clindamycin HCl 300 mg Oral Capsule - take 1 capsule by ORAL route every 6 hours for 10 days; 40 capsule. - Medication Reconciliation Form, Thank You Letter, Antibiotic Education, Prescription Opioid Use form. - Follow up: Private Physician; When: 1 - 2 days; Reason: Worsening of condition, Recheck today's complaints, Continuance of care, Re-evaluation by your physician. - Problem is an acute exacerbation. - Symptoms have improved. Signatures: Dispatcher [employer] EDCO Divya Willams RN RN ca1 Holmes, Maurice, MD MD [facility] Bro Alonzo nv2 Corrections: (The following items were deleted from the chart) 23:54 23:08 09/15/2020 23:08 Discharged to Home. Impression: Cellulitis, Left Lower ak2 Extremity. Condition is Stable. Forms are Medication Reconciliation Form, Thank You Letter, Antibiotic Education, Prescription Opioid Use. Follow up: Private Physician; When: 1 - 2 days; Reason: Worsening of condition, Recheck today's complaints, Continuance of care, Re-evaluation by your physician. Problem is an acute exacerbation. Symptoms have improved. mh7
--- NOTE | 2020-09-15 23:09 | ER ---
Nurse's Notes [facility] Name: Arianne Ambriz Age: 74 yrs Sex: Female : 1945 Arrival Date: 09/15/2020 Time: 20:10 Bed 8 Private MD: Stu Groves Diagnosis: Cellulitis, Left Lower Extremity Presentation: 09/15 20:21 Chief complaint: Patient states: L leg and foot pain, redness and swelling x 1 month. ca1 Coronavirus screen: Client denies travel out of the [place] in the last 14 days. At this time, the client does not indicate any symptoms associated with coronavirus-19. Ebola Screen: Patient negative for fever greater than or equal to 101.5 degrees Fahrenheit, and additional compatible Ebola Virus Disease symptoms Patient denies exposure to infectious person. Patient denies travel to an Ebola-affected area in the 21 days before illness onset. No symptoms or risks identified at this time. Initial Sepsis Screen: Does the patient meet any 2 criteria? No. Patient's initial sepsis screen is negative. Does the patient have a suspected source of infection? No. Patient's initial sepsis screen is negative. Risk Assessment: Do you want to hurt yourself or someone else? Patient reports no desire to harm self or others. Onset of symptoms was September 15, 2020. 20:21 Method Of Arrival: Wheelchair ca1 20:21 Acuity: THADDEUS 3 ca1 Triage Assessment: 21:11 General: Appears in no apparent distress. Behavior is calm, cooperative. Pain: ak2 Complains of pain in left leg. Musculoskeletal: No deficits noted. Injury Description: l leg swelling/redness. Historical: - Allergies: 20:24 butorphanol; ca1 20:24 Ciprofloxacin (DIZZINESS); ca1 20:24 Erythromycin; ca1 20:24 Levaquin; ca1 20:24 Neurontin; ca1 20:24 GABAPENTIN; ca1 20:24 Stadol; (cardiac arrest); ca1 20:24 TETRACYCLINES; ca1 - PMHx: 20:24 Arthritis; Back pain; William hip bursitis; Chronic pain; Complication of anesthesia; DVT; ca1 GERD; Hypertension; - PSHx: 20:24 Back fx x3; shoulder sx; Knee surgery; R hip sx; ca1 - Immunization history:: Client reports having NOT received the Covid vaccine. Pneumococcal vaccine is not up to date, Flu vaccine is not up to date. - Social history:: Smoking status: Patient/guardian denies using tobacco, the patient reports quitting approximately 50 years ago. Screenin:10 Abuse screen: Denies threats or abuse. Denies injuries from another. Nutritional ak2 screening: No deficits noted. Tuberculosis screening: No symptoms or risk factors identified. Fall Risk None identified. IV access (20 points). Vital Signs: 20:21 BP 119 / 83; Pulse 88; Resp 16 S; Temp 97.2(TE); Pulse Ox 99% on R/A; Weight 58.06 kg ca1 (R); Height 5 ft. 4 in. (162.56 cm) (R); Pain 10/10; 23:14 BP 110 / 73; Pulse 75; Resp 18; Pulse Ox 98% on R/A; ak2 20:21 Body Mass Index 21.97 (58.06 kg, 162.56 cm) ca1 ED Course: 20:10 Patient arrived in ED. am4 20:10 Stu Groves DO is Private Physician. am4 20:22 Triage completed. ca1 20:24 Arm band placed on right wrist. ca1 20:40 Albert Tong MD is Attending Physician. 7 21:09 Bro Alonzo is Primary Nurse. ak2 21:10 Patient has correct armband on for positive identification. ak2 21:10 No provider procedures requiring assistance completed. Inserted saline lock: 20 gauge ak2 in right antecubital area, using aseptic technique. 22:03 US Extremity Venous Unilateral Ltd In Process Unspecified. EDMS 23:15 IV discontinued. ak2 Administered Medications: 22:05 Drug: Clindamycin 600 mg Route: IVPB; Infused Over: 30 mins; Site: right antecubital; ak2 Outcome: 23:08 Discharge ordered by . [facility] 23:15 Discharged to home ambulatory. ak2 23:15 Condition: good 23:15 Discharge instructions given to patient, family, Prescriptions given X 1. 23:54 Patient left the ED. ak2 Signatures: Dispatcher [employer] EDMS Divya Willams RN RN ca1 Albert Tong MD MD [facility] Aislinn Andujar [facility] Bro Alonzo ak2
[2020-09-16 00:34] VITALS: BP 110/73; TEMP 97.2; O2SAT 98
--- NOTE | 2020-09-16 07:24 | RAD REPORT ---
EXAM DESCRIPTION: USExtremity Venous Uni Ltd09/15/2020 10:03 pm CLINICAL HISTORY: left leg swelling. COMPARISON: None. 2019 FINDINGS: Left common femoral, superficial femoral, popliteal and posterior tibial veins are compre ssible and demonstrate augmentation. Doppler demonstrates good flow. IMPRESSION: No evidence of deep venous thrombosis involving the left lower extremity.
== END 2020-09-15 23:54 | disposition home or self-care (01) ==
LOC: ER 20:07
DX: L03.116 Cellulitis of left lower limb (principal); Z87.891 Personal history of nicotine dependence; M19.90 Unspecified osteoarthritis, unspecified site; G89.29 Other chronic pain; Z86.718 Personal history of other venous thrombosis and embolism; K21.9 Gastro-esophageal reflux disease without esophagitis; I10 Essential (primary) hypertension
CPT/HCPCS: 36415; 80048; 80076; 85025; 85610; 85730; 87040; 93971

== ENCOUNTER 2023-01-03 22:12 | Emergency (ER) | payer OTHER, BC ==
--- OUTSIDE RECORDS SUMMARY | 2023-01-03 22:19 | XMS REPORT | Continuity of Care Document ---
:1945 Author Organization [facility] t Address [address] [place] [place] [address] Care Team Providers Name Role Phone RAMBO CASTELLANO JR Primary Care Physician Unavailable Ayo Groves Attending Clinician Unavailable [id number] Attending Clinician Unavailable Eriak Broussard Kelcey Attending Clinician Unavailable KRISTIN GLEZ Attending Clinician Unavailable TAYLOR RABAGO Attending Clinician Unavailable FELICIA LEE Attending Clinician Unavailable DARYL PÉREZ Attending Clinician Unavailable BRYSON MOTA Attending Clinician Unavailable MD JHOANA ESTRADA Attending Clinician Unavailable JHOANA ESTRADA Attending Clinician Unavailable NISHA STEWARD Attending Clinician Unavailable [id number] Admitting Clinician Unavailable Erika Broussard Kelcey Admitting Clinician Unavailable BRYSON MOTA Admitting Clinician Unavailable TAYLOR RABAGO Admitting Clinician Unavailable FELICIA LEE Admitting Clinician Unavailable PINEDA HUGO Admitting Clinician Unavailable MD JHOANA ESTRADA Admitting Clinician Unavailable JHOANA ESTRADA Admitting Clinician Unavailable NISHA STEWARD Admitting Clinician Unavailable Payers Payer Name Policy Type Policy Number Effective Date Expiration Date Camron ca MCR MCR [id number] BCTX BCTI [id number] MEDICARE A B [id number] 2008 00:00:00 BCBS INDEMNITY [id number] 2008 [place] OS 00:00:00 CDC REVIEW [id number] 2019 2020 00:00:00 00:00:00 [employer] Blue 6 [id number] 2008 [facility] Shield of [place] 00:00:00 - [facility] MEDICARE MB [id number] 2008 [facility] NOVITAS 00:00:00 [facility] Problems Condition Condition Condition Status Onset Resolution Last Treating Co mments Source Name Details Category Date Date Treatment Clinician Date Iron Iron Disease Active [facility] deficiency deficiency 3-10 [facility] anemia anemia 00:00: Medical 00 Center Chronic Chronic Disease Active [facility] pain [facility]-03 [facility] syndrome syndrome 00:[facility] Medica l 00 Center Fracture, Fracture, Disease Recurre [facility] intertroch intertroch nce 8-25 St[facility] k[facility] anteric, anteric, 00:00: Medica l left left 00 Center femur, femur, closed, closed, initial initial encounter encounter Other Other Disease Active [facility] chronic chronic 6-18 st pain pain 00:00: Hospita 00 l Femur Femur Disease Active [facility] fracture fracture 08-23 st 00:00: Hospita 00 l Hyponatrem Hyponatrem Disease Active M ethodi ia ia - st 00:00: Hospita 00 l Hip Hip Disease Active [facility] fracture fracture - st 00:00: Hospita 00 l Closed Closed Disease Active [facility] displaced displaced 5-22 st intertroch intertroch 00:00: Ho spita anteric anteric 00 l fracture fracture of right of right femur femur 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 malnutriti malnutriti 00:00: Me dical on, severe on, severe 00 Ce nter Acute low Acute low Disease Active [facility] back pain back pain 11-29 [facility] 00:00: Medical 00 [place] Physical Physical Disease Active [facility] t deconditio deconditio 11-29 [facility] rylee rylee 00:00: Medical 00 [place] Chest pain Chest pain Disease Active [facility] 11-29 [facility] 00:[facility]: Medical 00 [place] Chronic Chronic Disease Active Methodi prescripti prescripti 8 st on opiate on opiate 00:00: Hosp antonio use use 00 l Bilateral Bilateral Disease Active Met hodi hip hip 810 st bursitis bursitis 00:00: Hospit a 00 l Chronic Chronic Disease Active [facility]i cervical cervical 7 st radiculopa radiculopa 00:00: Ho spita thy thy 00 l Scoliosis Scoliosis Disease Active Met hodi of of 7 st thoracolum thoracolum 00:00: Ho spita bar spine bar spine 00 l Myalgia Myalgia Disease Active Methodi 7 st 00:00: Hospita 00 l Back pain Back pain Disease Active Met hodi 3 st 00:00: Hospita 00 l Cervicalgi Cervicalgi Disease Active M ethodi a a 3 st 00:00: Hospita 00 l Lumbar Lumbar Disease Active Methodi radicular radicular 3 st pain pain 00:00: Hospita 00 l Hip pain, Hip pain, Disease Active Met hodi chronic chronic 3 st 00:00: Hospita 00 l Lumbar Lumbar Disease Active Methodi disc disc 3 st disease disease 00:00: Hospita 00 l [id number] Thrombocyt Problem Co mmon openia [facility] Essential Essential Problem Com mon hypertensi (primary) Spi rit on hypertensi - [facility]I on [facility] Anxiety Anxiety Problem Common disorder disorder, Spiri t unspecifie - CHI d [facility] 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 pulmonale, Medica l unspecif Center d chronicity Flu Flu Problem Common vaccine vaccine Spirit needed need [facility] Peripheral Venous Problem Commo n venous (periphera Spirit insufficie l) - CHI ncy insufficie [facility] [id number] Anemia due Problem Co mmon to other Spirit cause, not - CHI classified [facility] [id number] Venous Problem Common insufficie Spirit ncy of - [facility] both lower [facility] [id number] Chronic Problem Comm on deep vein Spirit thrombosis - CHI (DVT) of [facility] vein of [facility] left lower Center extremity [id number] History of Problem Co mmon fall Spirit - CHI [facility] Gastroesop GERD Problem Commo n hageal (gastroeso Spirit reflux phageal - CHI disease reflux St disease) [facility] Osteoporos Osteoporos Problem C ommon is is, Spirit unspecifie - CHI d osteoporos [facility] is type, Medical unspecifie Center d pathologic al fracture presence [id number] Adjustment Problem Com mon disorder, Spirit unspecifie - CHI d [facility] Anxiety Anxiety Problem Common [facility] [id number] Pruritic Problem Comm on dermatitis [facility] [id number] Venous Problem Common insufficie Spirit ncy - [facility] [id number] Varicose Problem Commo n veins of Spirit bilateral - [facility] lower [facility] extremitie [facility] s with Medical other Center complicati ons [id number] Opioid Problem Common dependence Spirit , - CHI continuous [facility] HTN HTN Disease Active Overview: [facility] (hypertens (hypertens Formattin [facility] ion) ion) g of this Medical note Center might be different from the original. bp controlle d with medicatio n x 3 yrs Allergies, Adverse Reactions, Alerts Allergy Allergy Status Severity Reaction(s) Onset Inactive Treating Comm ents Source Name Type Date Date Clinician CIPROFLO Allergy Active Other [facility] XACIN 3- [facility] 00:[facility]: Medical 00 Center Ciproflo Drug Active Other (See dizziness C [facility] xacin Allergy Comments) 3 [facility] Medical 00 Center Ciproflo Propensi Active Other (See 2018-03 Me thodi xacin ty to Comments) 05-17 st adverse 00:00: Hospita reaction 00 l s to drug Levoflox Propensi Active Nausea Only 2015-03 M ethodi acin ty to 05-12 st adverse 00:00: Hospita reaction 00 l s to drug Moxiflox Propensi Active Nausea Only 2015-03 M ethodi acin ty to 05-12 st adverse 00:00: Hospita reaction 00 l s to drug Nabumeto Propensi Active Nausea Only 2015-03 M ethodi ne ty to 05-12 st adverse 00:00: Hospita reaction 00 l s to drug Tolterod Propensi Active Nausea Only 2015-03 M ethodi ine ty to 05-12 st adverse 00:00: Hospita reaction 00 l s to drug Doxycycl Propensi Active Other (See 2015-03 Abdominal Methodi ine ty to Comments) 05-[address] Hyclate adverse 00:00: Hospita reaction 00 l s to drug Erythrom Propensi Active Nausea Only 2015-03 M ethodi ycin ty to 05-12 st adverse 00:00: Hospita reaction 00 l s to drug Gabapent Propensi Active Other (See 2015-03 disorient Methodi in ty to Comments) 05-[address] adverse 00:00: Hospita reaction 00 l s to drug Glycopyr Propensi Active Nausea Only 2015-03 M ethodi rolate ty to 05-12 st adverse 00:00: Hospita reaction 00 l s to drug GABAPENT Allergy Active Other 2014-03 [facility] IN 0-06 00:00: 00 NABUMETO Allergy Active Nausea 2014-03 [facility] NE 0-06 00:00: 00 Gabapent Drug Active Other (See 2014-[address] in Intolera Comments) 0-06 ation [facility] 00:00: Medical 00 [place] Nabumeto Drug Active Nausea Only 2014-[address] ne Intolera 0-06 [facility] n[facility] 00:[facility]: Medical 00 Center LEVOFLOX Allergy Active Low Nausea [facility] ACIN 3-13 00:00: 00 GLYCOPYR Allergy Active Low Nausea [facility] ROLATE 3-13 00:00: 00 MOXIFLOX Allergy Active Low Nausea [facility] ACIN 3-13 00:00: 00 TOLTEROD Allergy Active Low Nausea [facility] INE 3-13 00:00: 00 DOXYCYCL Allergy Active Low Other [facility] INE 3-13 HYCLATE 00:00: 00 ERYTHROM Allergy Active Low Nausea [facility] YCIN 3-13 00:00: 00 Glycopyr Drug Active Nausea Only [facility] rolate Intolera 3-13 [facility] nce 00:00: Medical 00 [place] Moxiflox Drug Active Nausea Only [facility] acin Intolera 3-13 [facility] nce 00:00: Medical 00 [place] Tolterod Drug Active Nausea Only [facility] ine Intolera 3-13 [facility] nce 00:00: Medical 00 Center Doxycycl Drug Active Other (See Abdominal C [facility] ine Intolera Comments) 3-13 pain [facility] Hyclate nce 00:00: Medical 00 [place] Erythrom Drug Active Nausea Only [facility] ycin Intolera 3-13 [facility] nce 00:00: Medical 00 [place] Levoflox Drug Active Nausea Only [facility] acin Intolera 3-13 [facility] nce 00:00: Medical 00 [place] BUTORPHA Allergy Active High Anaphylaxis 2013- SL EH NOL 3-12 TARTRATE 00:00: 00 Butorpha Drug Active Anaphylaxis 2013- [facility] nol Allergy 3-12 [facility] Tartrate 00:00: Medical 00 [place] Adhesive Propensi Active Swelling 0 Itching & M ethodi Tape-Jada ty to 8-[address] icones adverse 00:00: tching & Hospita reaction 00 swelling l s to drug Butorpha Propensi Active Palpitations "brings Methodi nol ty to 8-[address] Tartrate adverse 00:00: cardiac Hospit a reaction 00 arrest" l s to drug Clarithr Propensi Active Palpitations High Methodi omycin ty to 8-[address] adverse 00:00: rate Hospita reaction 00 l s to drug gabapent gabapent Active anaphylaxis C ommon in in [facility] 1285 Drug Active anaphylaxis Commo n allergy [facility] 9041 Drug Active Unknown Common allergy [facility] Family History Family Member Diagnosis Comments Start Date Stop Date Source Natural father Cancer [facility] Natural mother Heart attack [facility] Natural mother Hypertension [facility] Natural mother Osteoporosis [facility] Paternal grandfather Stroke [facility] Paternal grandmother Stroke [facility] Natural sister Diabetes [facility] Social History Social Habit Start Date Stop Date Quantity Comments Source History of Tobacco [facility] - Use [facility] Sexual orientation [facility] Hospital History of Social 2022-07-04 2022-07-[address] function 00:00:00 00:00:00 Hospital Alcohol intake 2020-06-02 2020-06-[address] [facility] es 00:00:00 00:00:00 non-drinker of Medical nter alcohol (finding) Tobacco use and 2020-05-30 2020-05-[address] Stacy kes exposure 00:00:00 00:00:00 tobacco non-user [facility] Tobacco Comment 2020-05-30 2020-05-30 quit ~ [facility] 00:[facility] 00:[facility]00 [facility] Cigarettes smoked 2016-11-13 2016-11-[address] current (pack per 00:00:00 00:00:00 Hospita l day) - Reported Cigarette 2016-11-13 2016-11-13 Anabaptism pack-years 00:00:00 00:00:00 Hospital Sex Assigned At [address] [facility] 00:00:00 00:00:00 Medical Center Smoking Status Start Date Stop Date Source Former Smoker 2022-02-16 00:00:00 2022-02-16 00:00:00 [facility] Never Smoker [facility] Medications Ordered Filled Start Stop Current Ordering Indication Dosage Frequency Signature Comments Components Source Medication Medication Date Date Medication? Clinician (SIG) Name Name Amee Megestrol 2021- No 1{table BID Megestrol Acetate 20 Acetate 20 6-10 07-10 t} Acetate 20 MG MG 00:00: 00:00 MG 00 :00 Mirtazapine Mirtazapine No QD Mirtazapin 15 MG 15 MG 5-25 e 15 MG 00:00: 00 Mirtazapine Mirtazapine No QD Mirtazapin 15 MG 15 MG 5-25 e 15 MG 00:00: 00 Mirtazapine Mirtazapine No QD Mirtazapin 15 MG 15 MG 5-25 e 15 MG 00:00: 00 Mirtazapine Mirtazapine No QD Mirtazapin 15 MG 15 MG 5-25 e 15 MG 00:00: 00 oxyCODone [place] [id number] 20mg Q.25D Take 1 [facility] [place] (ROXICODONE 4-15 tablet (20 st ) 20 MG 00:00: mg total) Hospi ta tablet 00 by mouth 4 l (four) times a day for 30 days .chronic pain. [place] [id number] 20mg Q.25D Take 1 Meth [place] (ROXICODONE 3-16 tablet (20 st ) 20 MG 00:00: mg total) Hospi ta tablet 00 by mouth 4 l (four) times a day for 30 days .chronic pain. [place] [id number] 20mg Q.25D Take 1 Meth [place] (ROXICODONE 2-16 tablet (20 st ) 20 MG 00:00: mg total) Hospi ta tablet 00 by mouth 4 l (four) times a day for 30 days .chronic pain. Max Daily Amount: 80 mg tiZANidine Yes [id number] 4mg Q8H Take 1 Methodi (ZANAFLEX) 2-10 tablet (4 st 4 MG tablet 00:00: mg total) H ospita 00 by mouth l every 8 (eight) hours as needed for muscle spasms. megestroL 2020-03 Yes 400mg Q.5D Take 10 mL M ethodi (MEGACE) 2-15 ([address] 400 mg/10 00:00: total) by Hos yady mL (40 00 mouth 2 l mg/mL) (two) suspension times a day for 90 days. nitroglycer Yes .4mg Place 0.[address] in 3-10 mg under [facility] (NITROSTAT) 17:15: the tongue Medical 0.[address] 46 every 5 Center tablet (five) minutes as needed. tiZANidine Yes muscle 4mg Take [address] (ZANAFLEX) 3-10 spasm by mouth Luke s 4 MG tablet 17:15: every 8 Med ical 46 (eight) Center hours as needed. Neomycin-Po Neomycin-Po 2018-03 Yes Ayo 4 drops Common lymyxin-HC lymyxin-HC 2-10 [place] into Sp gary 00:00: affected - CHI 00 ear [facility] Neomycin-Po Neomycin-Po 2018-03 No 4{drops TID Neomycin-P lymyxin-HC lymyxin-HC 2-10 _into_a olymyxin-H 3.5-74186-0 3.582904-5 00:00: ffected C 00 _ear} 3.5- 1 Neomycin-Po Neomycin-Po 2018-03 No 4{drops TID Neomycin-P lymyxin-HC lymyxin-HC 2-10 _into_a olymyxin-H 3.585262-9 3.590608-7 00:00: ffected C 00 _ear} 3.5-- 1 Neomycin-Po Neomycin-Po 2018-03 No 4{drops TID Neomycin-P lymyxin-HC lymyxin-HC 2-10 _into_a olymyxin-H 3.528437-4 3.5-26407-4 00:00: ffected C 00 _ear} 3.5-- 1 Neomycin-Po Neomycin-Po 2018-03 No 4{drops TID Neomycin-P lymyxin-HC lymyxin-HC 2-10 _into_a olymyxin-H 3.5-35965-1 3.5-81277-1 00:00: ffected C 00 _ear} 3.5-- 1 Neomycin-Po Neomycin-Po 2018-03 No 4{drops TID Neomycin-P lymyxin-HC lymyxin-HC 2-10 _into_a olymyxin-H 3.508060-4 3.500109-0 00:00: ffected C 00 _ear} 3.5- Neomycin-Po Neomycin-Po 2018-03 No 4{drops TID Neomycin-P lymyxin-HC lymyxin-HC 2-10 _into_a olymyxin-H 3.525763-7 3.572703-9 00:00: ffected C 00 _ear} 3.5- Neomycin-Po Neomycin-Po 2018-03 No 4{drops TID Neomycin-P lymyxin-HC lymyxin-HC 2-10 _into_a olymyxin-H 3.552229-9 3.522518-1 00:00: ffected C 00 _ear} 3.5- Neomycin-Po Neomycin-Po 2018-03 No 4{drops TID Neomycin-P lymyxin-HC lymyxin-HC 2-10 _into_a olymyxin-H 3.531652-0 3.529024-9 00:00: ffected C 00 _ear} 3.5- Neomycin-Po Neomycin-Po 2018-03 No 4{drops TID Neomycin-P lymyxin-HC lymyxin-HC 2-10 _into_a olymyxin-H 3.598455-3 3.511667-4 00:00: ffected C 00 _ear} 3.- Oxycodone Oxycodone 2018-0 Yes Ayo 1 tablet Common HCl HCl 7-16 [place] as needed Spirit 00:00: - CHI 00 [facility] Meclizine Meclizine 2018- Yes Ayo 1 tablet Common HCl HCl 4-23 [place] as needed Spirit 00:00: - CHI 00 [facility] Meclizine Meclizine 2018- No 1{table QD Meclizine HCl 25 MG HCl 25 MG 4-23 t_as_ne HCl 25 MG 00:00: eded} 00 Meclizine Meclizine No 1{table QD Meclizine HCl 25 MG HCl 25 MG 4-23 t_as_ne HCl 25 MG 00:00: eded} 00 Meclizine Meclizine 2019-0 No 1{table QD Meclizine HCl 25 MG HCl 25 MG 4-23 t_as_ne HCl 25 MG 00:00: eded} 00 Meclizine Meclizine 2019-0 No 1{table QD Meclizine HCl 25 MG HCl 25 MG 4-23 t_as_ne HCl 25 MG 00:00: eded} 00 Meclizine Meclizine 2019-0 No 1{table QD Meclizine HCl 25 MG HCl 25 MG 4-23 t_as_ne HCl 25 MG 00:00: eded} 00 Meclizine Meclizine 2019-0 No 1{table QD Meclizine HCl 25 MG HCl 25 MG 4-23 t_as_ne HCl 25 MG 00:00: eded} 00 Meclizine Meclizine 2019-0 No 1{table QD Meclizine HCl 25 MG HCl 25 MG 4-23 t_as_ne HCl 25 MG 00:00: eded} 00 Meclizine Meclizine 2019-0 No 1{table QD Meclizine HCl 25 MG HCl 25 MG 4-23 t_as_ne HCl 25 MG 00:00: eded} 00 Meclizine Meclizine 2019-0 No 1{table QD Meclizine HCl 25 MG HCl 25 MG 4-23 t_as_ne HCl 25 MG 00:00: eded} 00 Meclizine Meclizine 2019-0 No 1{table QD Meclizine HCl 25 MG HCl 25 MG 4-23 t_as_ne HCl 25 MG 00:00: eded} 00 Meclizine Meclizine 2019-0 No 1{table QD Meclizine HCl 25 MG HCl 25 MG 4-23 t_as_ne HCl 25 MG 00:00: eded} 00 Meclizine Meclizine 2019-0 No 1{table QD Meclizine HCl 25 MG HCl 25 MG 4-23 t_as_ne HCl 25 MG 00:00: eded} 00 Meclizine Meclizine 2019-0 No 1{table QD Meclizine HCl 25 MG HCl 25 MG 4-23 t_as_ne HCl 25 MG 00:00: eded} 00 Meclizine Meclizine No 1{table QD Meclizine HCl 25 MG HCl 25 MG 4-23 t_as_ne HCl 25 MG 00:00: eded} Meclizine Meclizine No 1{table QD Meclizine HCl 25 MG HCl 25 MG 4-23 t_as_ne HCl 25 MG 00:00: eded} 00 ELIQUIS 5 Yes 5mg Q.5D 5 mg 2 Method i mg tablet 08-25 (two) st 00:00: times a Hospita 00 day. l Nexium Nexium Yes Ayo 1 capsule Comm on [facility] Carafate Carafate Yes [facility] Pepto-Bismo Pepto-Bismo Yes Ayo 30 ml as Common l l [place] needed [facility] Zanaflex Zanaflex Yes Ayo 1 tablet C [facility] as needed [facility] Prolia Prolia Yes Ayo 60 mg Common [facility] Calcium Calcium Yes Ayo 1 tablet Com mon [place] [facility] Vitamin D-3 Vitamin D-3 Yes Ayo 1 tablet Common [facility] Mupirocin Mupirocin Yes Ayo 1 Com mon [place] applicatio Spirit n to - CHI affected [facility] Spironolact Spironolact Yes Ayo 1 tablet Common one one [facility] Tizanidine Tizanidine Yes Ayo TK 1 T PO Common HCl HCl [place] QD PRN [facility] oxyCODONE oxyCODONE No 1{table QID oxyCODONE HCl 15 MG HCl 15 MG t_as_ne HCl 15 MG eded} Mupirocin 2 Mupirocin 2 No 1{appli TID Mupirocin % % cation_ 2 % to_affe cted_ar ea} Vitamin D-3 Vitamin D-3 No 1{table QD Vitamin 5000 UNIT 5000 UNIT t} D-3 5000 UNIT Prolia 60 Prolia 60 No Prolia 60 MG/ML MG/ML MG/ML Zanaflex 4 Zanaflex 4 No 1{table TID Zanaflex 4 MG MG t_as_ne MG eded} Carafate 1 Carafate 1 No 1{table Carafate 1 GM GM t} GM tiZANidine tiZANidine No tiZANidine HCl 4 MG HCl 4 MG HCl 4 MG Pepto-Bismo Pepto-Bismo No 30{ml_a Pepto-Bism l 524 l 524 s_neede ol 524 MG/30ML MG/30ML d} MG/30ML NexIUM 40 NexIUM 40 No 1{capsu QD NexIUM 40 MG MG le} MG Spironolact Spironolact No 1{table Spironolac one 25 MG one 25 MG t} tone 25 MG Calcium 200 Calcium 200 No 1{table QD Calcium MG MG t} 200 MG oxyCODONE oxyCODONE No 1{table QID oxyCODONE HCl 15 MG HCl 15 MG t_as_ne HCl 15 MG eded} Mupirocin 2 Mupirocin 2 No 1{appli TID Mupirocin % % cation_ 2 % to_affe cted_ar ea} Vitamin D-3 Vitamin D-3 No 1{table QD Vitamin 5000 UNIT 5000 UNIT t} D-3 5000 UNIT Prolia 60 Prolia 60 No Prolia 60 MG/ML MG/ML MG/ML Zanaflex 4 Zanaflex 4 No 1{table TID Zanaflex 4 MG MG t_as_ne MG eded} Carafate 1 Carafate 1 No 1{table Carafate 1 GM GM t} GM tiZANidine tiZANidine No tiZANidine HCl 4 MG HCl 4 MG HCl 4 MG Pepto-Bismo Pepto-Bismo No 30{ml_a Pepto-Bism l 524 l 524 s_neede ol 524 MG/30ML MG/30ML d} MG/30ML NexIUM 40 NexIUM 40 No 1{capsu QD NexIUM 40 MG MG le} MG tiZANidine tiZANidine No tiZANidine HCl 4 MG HCl 4 MG HCl 4 MG Carafate 1 Carafate 1 No 1{table Carafate 1 GM GM t} GM Prolia 60 Prolia 60 No Prolia 60 MG/ML MG/ML MG/ML oxyCODONE oxyCODONE No 1{table QID oxyCODONE HCl 15 MG HCl 15 MG t_as_ne HCl 15 MG eded} Vitamin D-3 Vitamin D-3 No 1{table QD Vitamin 5000 UNIT 5000 UNIT t} D-3 5000 UNIT NexIUM 40 NexIUM 40 No 1{capsu QD NexIUM 40 MG MG le} MG Calcium 200 Calcium 200 No 1{table QD Calcium MG MG t} 200 MG Spironolact Spironolact No 1{table Spironolac one 25 MG one 25 MG t} tone 25 MG Mupirocin 2 Mupirocin 2 No 1{appli TID Mupirocin % % cation_ 2 % to_affe cted_ar ea} Zanaflex 4 Zanaflex 4 No 1{table TID Zanaflex 4 MG MG t_as_ne MG eded} Xarelto 10 Xarelto 10 No 1{table QD Xarelto 10 MG MG t_with_ MG food} Pepto-Bismo Pepto-Bismo No 30{ml_a Pepto-Bism l 524 l 524 s_neede ol 524 MG/30ML MG/30ML d} MG/30ML tiZANidine tiZANidine No tiZANidine HCl 4 MG HCl 4 MG HCl 4 MG Carafate 1 Carafate 1 No 1{table Carafate 1 GM GM t} GM Prolia 60 Prolia 60 No Prolia 60 MG/ML MG/ML MG/ML oxyCODONE oxyCODONE No 1{table QID oxyCODONE HCl 15 MG HCl 15 MG t_as_ne HCl 15 MG eded} Vitamin D-3 Vitamin D-3 No 1{table QD Vitamin 5000 UNIT 5000 UNIT t} D-3 5000 UNIT NexIUM 40 NexIUM 40 No 1{capsu QD NexIUM 40 MG MG le} MG Calcium 200 Calcium 200 No 1{table QD Calcium MG MG t} 200 MG Spironolact Spironolact No 1{table Spironolac one 25 MG one 25 MG t} tone 25 MG Mupirocin 2 Mupirocin 2 No 1{appli TID Mupirocin % % cation_ 2 % to_affe cted_ar ea} Zanaflex 4 Zanaflex 4 No 1{table TID Zanaflex 4 MG MG t_as_ne MG eded} Xarelto 10 Xarelto 10 No 1{table QD Xarelto 10 MG MG t_with_ MG food} Pepto-Bismo Pepto-Bismo No 30{ml_a Pepto-Bism l 524 l 524 s_neede ol 524 MG/30ML MG/30ML d} MG/30ML Pepto-Bismo Pepto-Bismo No 30{ml_a Pepto-Bism l 524 l 524 s_neede ol 524 MG/30ML MG/30ML d} MG/30ML tiZANidine tiZANidine No tiZANidine HCl 4 MG HCl 4 MG HCl 4 MG Carafate 1 Carafate 1 No 1{table Carafate 1 GM GM t} GM Prolia 60 Prolia 60 No Prolia 60 MG/ML MG/ML MG/ML oxyCODONE oxyCODONE No 1{table QID oxyCODONE HCl 15 MG HCl 15 MG t_as_ne HCl 15 MG eded} NexIUM 40 NexIUM 40 No 1{capsu QD NexIUM 40 MG MG le} MG Mupirocin 2 Mupirocin 2 No 1{appli TID Mupirocin % % cation_ 2 % to_affe cted_ar ea} Spironolact Spironolact No 1{table Spironolac one 25 MG one 25 MG t} tone 25 MG Vitamin D-3 Vitamin D-3 No 1{table QD Vitamin 5000 UNIT 5000 UNIT t} D-3 5000 UNIT Zanaflex 4 Zanaflex 4 No 1{table TID Zanaflex 4 MG MG t_as_ne MG eded} Xarelto 10 Xarelto 10 No 1{table QD Xarelto 10 MG MG t_with_ MG food} Calcium 200 Calcium 200 No 1{table QD Calcium MG MG t} 200 MG Pepto-Bismo Pepto-Bismo No 30{ml_a Pepto-Bism l 524 l 524 s_neede ol 524 MG/30ML MG/30ML d} MG/30ML tiZANidine tiZANidine No tiZANidine HCl 4 MG HCl 4 MG HCl 4 MG Carafate 1 Carafate 1 No 1{table Carafate 1 GM GM t} GM Prolia 60 Prolia 60 No Prolia 60 MG/ML MG/ML MG/ML oxyCODONE oxyCODONE No 1{table QID oxyCODONE HCl 15 MG HCl 15 MG t_as_ne HCl 15 MG eded} NexIUM 40 NexIUM 40 No 1{capsu QD NexIUM 40 MG MG le} MG Mupirocin 2 Mupirocin 2 No 1{appli TID Mupirocin % % cation_ 2 % to_affe cted_ar ea} Spironolact Spironolact No 1{table Spironolac one 25 MG one 25 MG t} tone 25 MG Vitamin D-3 Vitamin D-3 No 1{table QD Vitamin 5000 UNIT 5000 UNIT t} D-3 5000 UNIT Zanaflex 4 Zanaflex 4 No 1{table TID Zanaflex 4 MG MG t_as_ne MG eded} Xarelto 10 Xarelto 10 No 1{table QD Xarelto 10 MG MG t_with_ MG food} Calcium 200 Calcium 200 No 1{table QD Calcium MG MG t} 200 MG Pepto-Bismo Pepto-Bismo No 30{ml_a Pepto-Bism l 524 l 524 s_neede ol 524 MG/30ML MG/30ML d} MG/30ML tiZANidine tiZANidine No tiZANidine HCl 4 MG HCl 4 MG HCl 4 MG Carafate 1 Carafate 1 No 1{table Carafate 1 GM GM t} GM Prolia 60 Prolia 60 No Prolia 60 MG/ML MG/ML MG/ML oxyCODONE oxyCODONE No 1{table QID oxyCODONE HCl 15 MG HCl 15 MG t_as_ne HCl 15 MG eded} NexIUM 40 NexIUM 40 No 1{capsu QD NexIUM 40 MG MG le} MG Mupirocin 2 Mupirocin 2 No 1{appli TID Mupirocin % % cation_ 2 % to_affe cted_ar ea} Spironolact Spironolact No 1{table Spironolac one 25 MG one 25 MG t} tone 25 MG Vitamin D-3 Vitamin D-3 No 1{table QD Vitamin 5000 UNIT 5000 UNIT t} D-3 5000 UNIT Zanaflex 4 Zanaflex 4 No 1{table TID Zanaflex 4 MG MG t_as_ne MG eded} Xarelto 10 Xarelto 10 No 1{table QD Xarelto 10 MG MG t_with_ MG food} Calcium 200 Calcium 200 No 1{table QD Calcium MG MG t} 200 MG Pepto-Bismo Pepto-Bismo No 30{ml_a Pepto-Bism l 524 l 524 s_neede ol 524 MG/30ML MG/30ML d} MG/30ML Calcium 200 Calcium 200 No 1{table QD Calcium MG MG t} 200 MG tiZANidine tiZANidine No tiZANidine HCl 4 MG HCl 4 MG HCl 4 MG Carafate 1 Carafate 1 No 1{table Carafate 1 GM GM t} GM Prolia 60 Prolia 60 No Prolia 60 MG/ML MG/ML MG/ML oxyCODONE oxyCODONE No 1{table QID oxyCODONE HCl 15 MG HCl 15 MG t_as_ne HCl 15 MG eded} NexIUM 40 NexIUM 40 No 1{capsu QD NexIUM 40 MG MG le} MG Vitamin D-3 Vitamin D-3 No 1{table QD Vitamin 5000 UNIT 5000 UNIT t} D-3 5000 UNIT Spironolact Spironolact No 1{table Spironolac one 25 MG one 25 MG t} tone 25 MG Zanaflex 4 Zanaflex 4 No 1{table TID Zanaflex 4 MG MG t_as_ne MG eded} Xarelto 10 Xarelto 10 No 1{table QD Xarelto 10 MG MG t_with_ MG food} Mupirocin 2 Mupirocin 2 No 1{appli TID Mupirocin % % cation_ 2 % to_affe cted_ar ea} Vitamin D-3 Vitamin D-3 No 1{table QD Vitamin 5000 UNIT 5000 UNIT t} D-3 5000 UNIT Pepto-Bismo Pepto-Bismo No 30{ml_a Pepto-Bism l 524 l 524 s_neede ol 524 MG/30ML MG/30ML d} MG/30ML Mupirocin 2 Mupirocin 2 No 1{appli TID Mupirocin % % cation_ 2 % to_affe cted_ar ea} Prolia 60 Prolia 60 No Prolia 60 MG/ML MG/ML MG/ML Carafate 1 Carafate 1 No 1{table Carafate 1 GM GM t} GM tiZANidine tiZANidine No tiZANidine HCl 4 MG HCl 4 MG HCl 4 MG Zanaflex 4 Zanaflex 4 No 1{table TID Zanaflex 4 MG MG t_as_ne MG eded} Calcium 200 Calcium 200 No 1{table QD Calcium MG MG t} 200 MG Xarelto 10 Xarelto 10 No 1{table QD Xarelto 10 MG MG t_with_ MG food} oxyCODONE oxyCODONE No 1{table QID oxyCODONE HCl 15 MG HCl 15 MG t_as_ne HCl 15 MG eded} NexIUM 40 NexIUM 40 No 1{capsu QD NexIUM 40 MG MG le} MG Vitamin D-3 Vitamin D-3 No 1{table QD Vitamin 5000 UNIT 5000 UNIT t} D-3 5000 UNIT Pepto-Bismo Pepto-Bismo No 30{ml_a Pepto-Bism l 524 l 524 s_neede ol 524 MG/30ML MG/30ML d} MG/30ML Mupirocin 2 Mupirocin 2 No 1{appli TID Mupirocin % % cation_ 2 % to_affe cted_ar ea} Prolia 60 Prolia 60 No Prolia 60 MG/ML MG/ML MG/ML Carafate 1 Carafate 1 No 1{table Carafate 1 GM GM t} GM tiZANidine tiZANidine No tiZANidine HCl 4 MG HCl 4 MG HCl 4 MG Zanaflex 4 Zanaflex 4 No 1{table TID Zanaflex 4 MG MG t_as_ne MG eded} Calcium 200 Calcium 200 No 1{table QD Calcium MG MG t} 200 MG Xarelto 10 Xarelto 10 No 1{table QD Xarelto 10 MG MG t_with_ MG food} oxyCODONE oxyCODONE No 1{table QID oxyCODONE HCl 15 MG HCl 15 MG t_as_ne HCl 15 MG eded} NexIUM 40 NexIUM 40 No 1{capsu QD NexIUM 40 MG MG le} MG Vitamin D-3 Vitamin D-3 No 1{table QD Vitamin 5000 UNIT 5000 UNIT t} D-3 5000 UNIT Pepto-Bismo Pepto-Bismo No 30{ml_a Pepto-Bism l 524 l 524 s_neede ol 524 MG/30ML MG/30ML d} MG/30ML Mupirocin 2 Mupirocin 2 No 1{appli TID Mupirocin % % cation_ 2 % to_affe cted_ar ea} Prolia 60 Prolia 60 No Prolia 60 MG/ML MG/ML MG/ML Carafate 1 Carafate 1 No 1{table Carafate 1 GM GM t} GM tiZANidine tiZANidine No tiZANidine HCl 4 MG HCl 4 MG HCl 4 MG Zanaflex 4 Zanaflex 4 No 1{table TID Zanaflex 4 MG MG t_as_ne MG eded} Calcium 200 Calcium 200 No 1{table QD Calcium MG MG t} 200 MG Xarelto 10 Xarelto 10 No 1{table QD Xarelto 10 MG MG t_with_ MG food} oxyCODONE oxyCODONE No 1{table QID oxyCODONE HCl 15 MG HCl 15 MG t_as_ne HCl 15 MG eded} NexIUM 40 NexIUM 40 No 1{capsu QD NexIUM 40 MG MG le} MG Vitamin D-3 Vitamin D-3 No 1{table QD Vitamin 5000 UNIT 5000 UNIT t} D-3 5000 UNIT Pepto-Bismo Pepto-Bismo No 30{ml_a Pepto-Bism l 524 l 524 s_neede ol 524 MG/30ML MG/30ML d} MG/30ML Mupirocin 2 Mupirocin 2 No 1{appli TID Mupirocin % % cation_ 2 % to_affe cted_ar ea} Prolia 60 Prolia 60 No Prolia 60 MG/ML MG/ML MG/ML Carafate 1 Carafate 1 No 1{table Carafate 1 GM GM t} GM tiZANidine tiZANidine No tiZANidine HCl 4 MG HCl 4 MG HCl 4 MG Zanaflex 4 Zanaflex 4 No 1{table TID Zanaflex 4 MG MG t_as_ne MG eded} Calcium 200 Calcium 200 No 1{table QD Calcium MG MG t} 200 MG Xarelto 10 Xarelto 10 No 1{table QD Xarelto 10 MG MG t_with_ MG food} oxyCODONE oxyCODONE No 1{table QID oxyCODONE HCl 15 MG HCl 15 MG t_as_ne HCl 15 MG eded} NexIUM 40 NexIUM 40 No 1{capsu QD NexIUM 40 MG MG le} MG Vitamin D-3 Vitamin D-3 No 1{table QD Vitamin 5000 UNIT 5000 UNIT t} D-3 5000 UNIT tiZANidine tiZANidine No tiZANidine HCl 4 MG HCl 4 MG HCl 4 MG oxyCODONE oxyCODONE No 1{table QID oxyCODONE HCl 15 MG HCl 15 MG t_as_ne HCl 15 MG eded} Xarelto 10 Xarelto 10 No 1{table QD Xarelto 10 MG MG t_with_ MG food} Mupirocin 2 Mupirocin 2 No 1{appli TID Mupirocin % % cation_ 2 % to_affe cted_ar ea} Pepto-Bismo Pepto-Bismo No 30{ml_a Pepto-Bism l 524 l 524 s_neede ol 524 MG/30ML MG/30ML d} MG/30ML Carafate 1 Carafate 1 No 1{table Carafate 1 GM GM t} GM Zanaflex 4 Zanaflex 4 No 1{table TID Zanaflex 4 MG MG t_as_ne MG eded} Prolia 60 Prolia 60 No Prolia 60 MG/ML MG/ML MG/ML Calcium 200 Calcium 200 No 1{table QD Calcium MG MG t} 200 MG NexIUM 40 NexIUM 40 No 1{capsu QD NexIUM 40 MG MG le} MG Vitamin D-3 Vitamin D-3 No 1{table QD Vitamin 5000 UNIT 5000 UNIT t} D-3 5000 UNIT tiZANidine tiZANidine No tiZANidine HCl 4 MG HCl 4 MG HCl 4 MG oxyCODONE oxyCODONE No 1{table QID oxyCODONE HCl 15 MG HCl 15 MG t_as_ne HCl 15 MG eded} Xarelto 10 Xarelto 10 No 1{table QD Xarelto 10 MG MG t_with_ MG food} Mupirocin 2 Mupirocin 2 No 1{appli TID Mupirocin % % cation_ 2 % to_affe cted_ar ea} Pepto-Bismo Pepto-Bismo No 30{ml_a Pepto-Bism l 524 l 524 s_neede ol 524 MG/30ML MG/30ML d} MG/30ML Carafate 1 Carafate 1 No 1{table Carafate 1 GM GM t} GM Zanaflex 4 Zanaflex 4 No 1{table TID Zanaflex 4 MG MG t_as_ne MG eded} Prolia 60 Prolia 60 No Prolia 60 MG/ML MG/ML MG/ML Calcium 200 Calcium 200 No 1{table QD Calcium MG MG t} 200 MG NexIUM 40 NexIUM 40 No 1{capsu QD NexIUM 40 MG MG le} MG Spironolact Spironolact No 1{table Spironolac one 25 MG one 25 MG t} tone 25 MG Calcium 200 Calcium 200 No 1{table QD Calcium MG MG t} 200 MG oxyCODONE oxyCODONE No 1{table QID oxyCODONE HCl 15 MG HCl 15 MG t_as_ne HCl 15 MG eded} Mupirocin 2 Mupirocin 2 No 1{appli TID Mupirocin % % cation_ 2 % to_affe cted_ar ea} Vitamin D-3 Vitamin D-3 No 1{table QD Vitamin 5000 UNIT 5000 UNIT t} D-3 5000 UNIT Prolia 60 Prolia 60 No Prolia 60 MG/ML MG/ML MG/ML Zanaflex 4 Zanaflex 4 No 1{table TID Zanaflex 4 MG MG t_as_ne MG eded} Carafate 1 Carafate 1 No 1{table Carafate 1 GM GM t} GM tiZANidine tiZANidine No tiZANidine HCl 4 MG HCl 4 MG HCl 4 MG Pepto-Bismo Pepto-Bismo No 30{ml_a Pepto-Bism l 524 l 524 s_neede ol 524 MG/30ML MG/30ML d} MG/30ML NexIUM 40 NexIUM 40 No 1{capsu QD NexIUM 40 MG MG le} MG Spironolact Spironolact No 1{table Spironolac one 25 MG one 25 MG t} tone 25 MG Calcium 200 Calcium 200 No 1{table QD Calcium MG MG t} 200 MG Vital Signs Vital Name Observation Time Observation Value Comments Source HEIGHT 2020-05-31 08:36:00 162.6 cm WEIGHT 2020-05-31 08:36:00 63.1 kg HEIGHT 2020-05-30 12:15:00 165.1 cm WEIGHT 2020-05-30 12:15:00 68.04 kg height 2022-02-19 11:30:00 64 [in_i] [facility] weight 2022-02-19 11:30:00 145 [lb_av] [facility] temperature 2022-02-19 11:30:00 98 [degF] [facility] bmi 2022-02-19 11:30:00 24.89 kg/m2 [facility] blood pressure 2022-02-19 11:30:00 130 mm[Hg] [facility] blood pressure 2022-02-19 11:30:00 72 mm[Hg] [facility] height 2021-10-18 15:20:00 64 [in_i] [facility] weight 2021-10-18 15:20:00 144 [lb_av] [facility] temperature 2021-10-18 15:20:00 98 [degF] [facility] bmi 2021-10-18 15:20:00 24.71 kg/m2 [facility] blood pressure 2021-10-18 15:20:00 132 mm[Hg] [facility] blood pressure 2021-10-18 15:20:00 70 mm[Hg] [facility] height 2021-10-18 15:30:00 64 [in_i] [facility] weight 2021-10-18 15:30:00 144 [lb_av] [facility] temperature 2021-10-18 15:30:00 98.0 [degF] [facility] bmi 2021-10-18 15:30:00 24.71 kg/m2 [facility] blood pressure 2021-10-18 15:30:00 132 mm[Hg] [facility] blood pressure 2021-10-18 15:30:00 70 mm[Hg] [facility] height 2021-08-16 10:40:00 64 [in_i] [facility] weight 2021-08-16 10:40:00 141 [lb_av] [facility] temperature 2021-08-16 10:40:00 97 [degF] [facility] bmi 2021-08-16 10:40:00 24.2 kg/m2 [facility] blood pressure 2021-08-16 10:40:00 136 mm[Hg] [facility] blood pressure 2021-08-16 10:40:00 76 mm[Hg] [facility] HEIGHT 2020-05-31 08:36:00 162.6 cm WEIGHT 2020-05-31 08:36:00 63.1 kg HEIGHT 2020-05-30 12:15:00 165.1 cm WEIGHT 2020-05-30 12:15:00 68.04 kg Procedures This patient has no known procedures. Plan of Care Planned Activity Planned Date Details Comments Source Future Scheduled 2022-12-01 COVID-19 VACCINE (#1) [facility] Test 08:46:10 [code = COVID-19 VACCINE (#1)] Future Scheduled 2022-12-01 Hepatitis C screening [facility] Test 08:46:10 (procedure) [code = 990487334] Future Scheduled 2022-12-01 SHINGLES VACCINES (1 Met [facility] Test 08:46:10 of 2) [code = SHINGLES VACCINES (1 of 2)] Future Scheduled 2022-12-01 65[facility] 08:46:10 VACCINE (1 - PCV) [code = 65+ PNEUMOCOCCAL VACCINE (1 - PCV)] Future Scheduled 2022-12-01 INFLUENZA VACCINE (#1) [facility] Test 08:46:10 [code = INFLUENZA VACCINE (#1)] Future Scheduled 2022-11-29 Influenza Vaccine (#1) [facility] 00:00:00 [code = Influenza Medical Ce nter Vaccine (#1)] Future Scheduled 2022-03-[address] [facility] Test 00:00:00 (12+) [code = Medical Center DEPRESSION SCREENING (12+)] Future Scheduled 2022-03-31 FALLS RISK SCREENING [facility] Test 00:00:00 [code = FALLS RISK Medical C enter SCREENING] Future Scheduled 2021-05-[address] [facility] Test 00:00:00 Counseling and Medical Cente r Screening (12+) [code = Tobacco Cessation Counseling and Screening (12+)] Future Scheduled 2009-09-[address] [facility] Test 00:00:00 WELLNESS (YEAR 2 or Medical Center FIRST YEAR if no IPPE) [code = MEDICARE ANNUAL WELLNESS (YEAR 2 or FIRST YEAR if no IPPE)] Future Scheduled 2008-10-27 PNEUMOCOCCAL 65+ YRS [facility] Test 00:00:00 (1 - PCV) [code = Medical Ce nter PNEUMOCOCCAL 65+ YRS (1 - PCV)] Future Scheduled 1993-10-27 SHINGLES VACCINES ([address] [facility] Test 00:00:00 of 2) [code = SHINGLES Medic al Center VACCINES (1 of 2)] Future Scheduled 1962-10-27 DTAP/TDAP/TD VACCINES [facility] Test 00:00:00 (1 - Tdap) [code = Medical C enter DTAP/TDAP/TD VACCINES (1 - Tdap)] Future Scheduled 1961-10-27 HEPATITIS C SCREENING [facility] Test 00:00:00 [code = HEPATITIS C Medical Center SCREENING] Future Scheduled 1944-04-29 COVID-19 VACCINE (#1) [facility] Test 00:00:00 [code = COVID-[address] VACCINE (#1)] Future Scheduled 1943 DXA SCAN [code = DXA [facility] Test 00:00:00 SCAN] Medical Center Encounters Start End Encounter Admission Attending Care Care Encounter Source Date/Time Date/Time Type Type Clinicians Facility Department ID 2021-08-16 Outpatient GrovesCASSIE abdi [facility] Common 11:01:01 Ayo [facility] 2021-04-26 Outpatient 3 [id number] ENCSL REF [id number] [facility] 10:42:36 [id number] [facility] 2021-04-26 Outpatient 3 BONNIE Broussard [facility] [id number] [facility] 10:30:17 Erika 0831 [facility] [place] 2021-04-26 Outpatient 3 [id number] ENCPL REF [id number] [facility] 10:29:11 0828 [facility] [place] 2021-04-26 Outpatient 3 [id number] ENCSL REF [id number] [facility] 10:29:09 [id number] [facility] 2021-04-26 Outpatient OSCAR GOODMAN ENCCLR [id number] ENCCLR 10:00:14 ADMISSION KRISTIN 2021-04-26 Outpatient 3 [id number] ENCPL REF [id number] [facility] 09:54:16 0529 [facility] [place] 2021-04-26 Outpatient 3 [id number] ENCPL REF [id number] [facility] 09:53:47 0528 [facility] [place] 2021-04-25 Outpatient Groves, STRADHALC [facility] Common 13:28:06 Ayo 20496 [facility] 2021-04-25 Outpatient [place], STRADHALC [facility] Common 13:27:26 Ayo 63804 [facility] 2021-04-25 Outpatient [place], STRADHALC [facility] Common 13:21:47 Ayo 37953 [facility] 2021-04-25 [facility] [id number] Common 12:53:49 Ayo 02706 [facility] 2021-04-25 Outpatient Groves, STLC [facility] [id number] Common 12:22:12 Ayo 70530 [facility] 2021-04-25 Outpatient Groves, STLMLC STLC [id number] Common 12:21:24 Ayo 47597 [facility] 2021-04-25 Outpatient Gro[place], STLMLC STLC [id number] Common 12:06:58 Ayo 75574 [facility] 2021-04-25 Outpatient Groves, STLMLC STLC [id number] Common 11:32:21 Ayo 81129 [facility] 2021-04-25 Outpatient Gro[place], STLMLC STLC [id number] Common 11:31:45 Ayo 43588 [facility] 2021-04-25 Outpatient [place], STLMLC STLC [id number] Common 11:18:56 Ayo 96980 [facility] 2021-04-25 Outpatient [place], STLMLC STLC [id number] Common 11:09:00 Ayo 22400 [facility] 2021-01-06 Outpatient RABAGO, [facility] [id number] [facility] 05:55:24 TAYLOR 2021-01-03 Inpatient RABAGO, [facility] [id number] [facility] 04:43:33 TAYLOR 2019-11-23 Inpatient ER JUSTIN LEE General Med [id number] [facility] 11:02:00 FELICIA 2022-02-28 2022-02-28 (TEL) STLMLC STLC [id number] Co mmon 00:00:00 00:00:00 [facility] 2022-02-19 2022-02-19 OFFICE STLC STLC [id number] Co mmon 00:00:00 00:00:00 VISIT [facility] LEVEL 4 [facility] 2021-10-23 2021-10-23 (WEB) STLMLC STLMLC [id number] Co mmon 00:00:00 00:00:00 [facility] 2021-10-23 2021-10-23 (WEB) STLMLC STLC [id number] Co mmon 00:00:00 00:00:00 [facility] 2021-10-18 2021-10-18 OFFICE STLMLC STLMLC [id number] Co mmon 00:00:00 00:00:00 [facility] - [facility]I LEVEL 4 [facility] 2021-10-18 2021-10-18 SUB ANNUAL STLMLC STLMLC [id number] Common 00:00:00 00:00:00 MCR [facility] WELLNESS - CHI VISIT [facility] 2021-09-06 2021-09-06 (TEL) STLMLC STLMLC [id number] Co mmon 00:00:00 00:00:00 [facility] 2021-08-22 2021-08-22 (TEL) STLMLC STLMLC [id number] Co mmon 00:00:00 00:00:00 [facility] 2021-08-22 2021-08-22 (TEL) STLMLC STLMLC [id number] Co mmon 00:00:00 00:00:00 [facility] 2021-08-22 2021-08-22 (WEB) STLMLC STLMLC [id number] Co mmon 00:00:00 00:00:00 [facility] 2021-08-16 2021-08-16 OFFICE STLMLC STLMLC [id number] Co mmon 00:00:00 00:00:00 VISIT [facility] PT - CHI LEVEL 4 [facility] 2021-08-16 2021-08-16 (TEL) STLMLC STLMLC [id number] Co mmon 00:00:00 00:00:00 [facility] 2021-07-06 2021-07-06 (TEL) STLMLC STLMLC [id number] Co mmon 00:00:00 00:00:00 [facility] 2021-06-20 2021-06-20 (TEL) STLMLC STLMLC [id number] Co mmon 00:00:00 00:00:00 [facility] 2021-05-10 2021-05-10 Outpatient ELISA [facility] [id number] [address] [place] [address] 00:00:00 00:00:00 DARYL lim 2020-12-12 2020-12-12 Outpatient PÉREZ, [facility] [id number] [place] 00:00:00 00:00:[address]ARY[address] 2020-11-20 2020-11-20 (TEL) STLMLC STLMLC [id number] Co mmon 00:00:00 00:00:00 [facility] 2020-10-16 2020-10-16 Outpatient STLMLC STLMLC [id number] Common 00:00:00 00:00:00 [facility] 2020-10-16 2020-10-16 Outpatient STLMLC STLMLC [id number] Common 00:00:00 00:00:00 [facility] 2020-10-05 2020-10-05 Outpatient PÉREZ, [facility] [id number] [place] 00:00:00 00:00:00 DARYL 639 [address] 2020-10-03 2020-10-03 Outpatient STLMLC STLMLC [id number] Common 00:00:00 00:00:00 [facility] 2020-09-27 2020-09-27 Outpatient STLMLC STLMLC [id number] Common 00:00:00 00:00:00 [facility] 2020-09-14 2020-09-14 Outpatient STLMLC STLMLC [id number] Common 00:00:00 00:00:00 [facility] 2020-07-17 2020-07-17 Outpatient STLMLC STLMLC [id number] Common 00:00:00 00:00:00 [facility] 2020-07-10 2020-07-10 Outpatient PÉREZ, [facility] [id number] [place] 00:00:00 00:00:00 DARYL 153 [address] 2020-06-12 2020-06-12 Outpatient PÉREZ, [facility] [id number] [place] 00:00:00 00:00:00 DARYL [address] 2020-05-30 2020-05-30 Outpatient [facility] [id number] 557 [facility] 00:00:00 00:00:00 2020-05-30 2020-05-30 Outpatient [facility] [id number] [facility] 00:00:00 00:00:00 2020-04-20 2020-04-20 Outpatient ELISA [facility] [id number] [place] 00:00:00 00:00:00 DARYL [address] 2020-04-17 2020-04-17 Outpatient STLMLC STLMLC [id number] Common 00:00:00 00:00:00 [facility] 2020-04-17 2020-04-17 Outpatient STLMLC STLMLC [id number] Common 00:00:00 00:00:00 [facility] 2020-04-17 2020-04-17 Outpatient STLMLC STLMLC [id number] Common 00:00:00 00:00:00 [facility] 2020-02-21 2020-02-21 Outpatient STLMLC STLMLC [id number] Common 00:00:00 00:00:00 [facility] 2020-02-21 2020-02-21 Outpatient STLMLC STLMLC [id number] Common 00:00:00 00:00:00 [facility] 2020-02-10 2020-02-10 Outpatient ELISA [facility] [id number] [place] 00:00:00 00:00:00 DARYL [address] 2019-12-27 2019-12-27 Outpatient ELISA [facility] [id number] [place] 00:00:00 00:00:00 DARYL [address] 2019-10-21 2019-10-21 [facility] [id number] Common 15:00:00 15:00:[address] [facility] 2019-10-14 2019-10-14 Out[facility] [id number] Common 12:21:00 12:21:[address] [facility] 2019-10-08 2019-10-08 Outpatient BRYSON MOTA [facility] [id number] [place] 00:00:00 00:00:[address] 2019-10-08 2019-10-08 Outpatient BRYSON MOTA [facility] [id number] [place] 00:00:00 00:00:[address] 2019-09-16 2019-09-16 Outpatient ELISA [facility] [id number] [place] 00:00:00 00:00:00 DARYL [address] 2019-08-20 2019-08-27 Inpatient NATALIE, [facility] [id number] [place] 00:00:00 00:00:00 JHOANA Diehl[address] [facility] [address] 2019-08-05 2019-08-05 [facility] [id number] Common 14:58:00 14:58:[place] [address] [facility] 2019-07-22 2019-07-22 [facility] [id number] Common 12:29:00 12:29:00 [address] [place] [address] [facility] 2019-07-19 2019-07-19 Outpatient ELISA [facility] [id number] [place] 00:00:00 00:00:00 DARYL [address] 2019-05-28 2019-05-28 [facility] [id number] Common 08:12:00 08:12:00 [address] [place] [address] [facility] 2019-05-25 2019-05-25 Outpatient ELISA [facility] [id number] [place] 00:00:00 00:00:00 DARYL [address] 2019-05-20 2019-05-20 [facility] [id number] Common 09:00:00 09:00:00 [place] [address] [facility] 2019-04-28 2019-04-28 Out[facility] [id number] Common 16:26:00 16:26:00 [place] [address] [facility] 2019-03-09 2019-03-09 [facility] [id number] Common 16:45:00 16:45:00 [place] [address] [facility] 2019-03-03 2019-03-03 [facility] [id number] Common 15:38:00 15:38:00 [address] [place] [address] [facility] 2019-03-03 2019-03-03 Out[facility] [id number] Common 13:00:00 13:00:00 [place] [address] [facility] 2019-01-27 2019-01-27 Out[facility] [id number] Common 11:24:00 11:24:00 [address] [place] [address] [facility] 2019-01-07 2019-01-07 Out[facility] [id number] Common 11:56:00 11:56:00 [address] [place] [address] [facility] 2019-01-04 2019-01-04 Out[facility] [id number] Common 16:00:00 16:00:00 [place] [address] [facility] 2018-12-23 2018-12-23 Out[facility] [id number] Common 14:16:00 14:16:00 [place] [address] [facility] 2018-12-17 2018-12-17 [facility] [id number] Common 11:29:00 11:29:00 [address] [facility] 2018-12-14 2018-12-14 [facility] [id number] Common 16:12:00 16:12:[address] [place] [address] [facility] 2018-12-02 2018-12-02 [facility] [id number] Common 14:45:00 14:45:00 [address] [place] [address] [facility] 2018-11-23 2018-11-23 [facility] [id number] Common 10:51:00 10:51:00 [address] [place] [address] [facility] 2018-10-20 2018-10-20 [facility] [id number] Common 15:40:00 15:40:00 [address] [place] [address] [facility] 2018-08-11 2018-08-11 [facility] [id number] Common 08:59:00 08:59:00 [address] [place] [address] [facility] 2018-08-10 2018-08-10 [facility] [id number] Common 15:55:00 15:55:[address] [address] [facility] 2018-07-29 2018-07-29 [facility] [id number] Common 09:31:00 09:31:[address] [facility] 2018-07-21 2018-07-21 [facility] 25 [id number] Common 11:45:00 11:45:[address] [place] [address] [facility] 2018-07-14 2018-07-14 [facility] 25 [id number] Common 13:31:00 13:31:[address] [place] [address] [facility] 2018-07-01 2018-07-01 [facility] 25 [id number] Common 14:10:00 14:10:00 [address] [place] [address] [facility] 2018-07-01 2018-07-01 [facility] [id number] Common 11:45:00 11:45:00 [address] [place] [address] [facility] 2018-06-04 2018-06-04 [facility] [id number] Common 11:30:00 11:30:00 [address] [place] [address] [facility] 2018-03-18 2018-03-18 [facility] [id number] Common 14:08:00 14:08:00 [address] [place] [address] [facility] 2018-01-12 2018-01-12 [facility] 22 [id number] Common 08:45:00 08:45:00 [address] [place] [address] [facility] 2018-01-05 2018-01-05 [facility] [id number] Common 14:00:00 14:00:00 t [facility] it [employer] [facility] Results Test Description Test Time Test Comments Results Result Comments Source AFB CULTURE + SMEAR (NON-SPUTUM) 2020-07-17 08:41:00 Test Item Value Reference Range Interpretation Comme nts CULTURE (BEAKER) (test code = 1095) No acid-fast bacilli isolated i n 42 days AFB SMEAR (BEAKER) (test code = 994) No acid fast bacilli seen AFB CULTURE + SMEAR (NON-SPUTUM)2020-07-17 08:41:00 Test Item Value Reference Range Interpretation Comments CULTURE (BEAKER) (test No acid-fast bacilli code = 1095) isolated in 42 days AFB SMEAR (BEAKER) No acid fast bacilli (test code = 994) seen FUNGUS CULTURE + [id number] 16:47:00 Test Item Value Reference Range Interpretation Comments CULTURE (BEAKER) (test No fungus isolated in code = 1095) 28 days FUNGUS SMEAR (BEAKER) No fungi seen (test code = 1406) FUNGUS CULTURE + [id number] 16:47:00 Test Item Value Reference Range Interpretation Comments CULTURE (BEAKER) (test No fungus isolated in code = 1095) 28 days FUNGUS SMEAR (BEAKER) No fungi seen (test code = 1406) ANAEROBIC [id number] 19:40:00 Test Item Value Reference Range Interpretation Comments CULTURE (BEAKER) (test No anaerobes isolated code = 1095) ANAEROBIC [id number] 19:40:00 Test Item Value Reference Range Interpretation Comments CULTURE (BEAKER) (test No anaerobes isolated code = 1095) BASIC METABOLIC [id number] 14:59:00 Test Item Value Reference Range Interpretation [...] S NOT APPLICABLE FOR DIALYSIS PATIEN TS. Manager Integrated ID - BSOperator ID - BSCBC W/PLT COUNT & AUTO DIFFERENTIAL 2020-06-06 14:30:00 Test Item Value Reference Range [...] 0-1 PERCENT (BEAKER) (test code = 2801) SARS-COV2/RT-PCR ([facility])2020-06-06 10:31:00 Test Item Value Reference Range Interpretation Comments SARS-COV2/RT-PCR (test Negative Not Detected, Negative, code = 9265684) See external report for linked test SARS-COV-2 PERFORMING LAB [facility] (test code = 7329405) Negative result for this test determines that [...] individuals suspected of COVID-19 by their healthcare provider.This test [...] justifying the authorization of the emergency use ofin vitro diagnostic tests for detection and/or diagnosis of COVID-19 is terminated under Section 564(b)(2) of the Act or the EUA is revoked under Section 564(g) of the Act.Fact Sheet for Healthcare Prov iders:https://www.[employer]/sites/default/files/product/documents/Fact_Sheet_HC _Zcmqgowoh_Rcqw_OEHV-AdI-9.pdfFact Sheet for Healthcare Patients:https://www.[employer]/sites/default/files/product/docume nts/Khoq_Mlfbc_Ovhklgkh_Udln_GNRY-SiB-0.pdfPerforming Laboratory:[address].[place], [place] [address]ESRXKHUKTF OBTAINED CULTURE + GRAM [id number] 09:02:00 Test Item Value Reference Range Interpretation Comments CULTURE (BEAKER) A From Broth Only (test code = Streptococcus 1095) parasanguinis GRAM STAIN 1+ WBCs RESULT (BEAKER) (test code = 1123) GRAM STAIN No organisms seen RESULT (BEAKER) (test code = 160080) SURGICALLY OBTAINED CULTURE + GRAM [id number] 09:51:00 Test Item Value Reference Range Interpretation Comments CULTURE (BEAKER) (test code No growth = 1095) GRAM STAIN RESULT (BEAKER) <1+ WBCs (test code = 1123) GRAM STAIN RESULT (BEAKER) No organisms seen (test code = 26491) BASIC METABOLIC [id number] 07:42:00 Test Item Value Reference Range Interpretation [...] S NOT APPLICABLE FOR DIALYSIS PATIEN TS. Manager Integrated ID - EDASICBC (HEMOGRAM ONLY)2020-06-03 06:52:00 Test Item Value Reference [...] (BEAKER) (test code = 413) BASIC METABOLIC [id number] 06:07:00 Test Item Value Reference Range Interpretation [...] S NOT APPLICABLE FOR DIALYSIS PATIEN TS. Manager Integrated ID - EDASICBC (HEMOGRAM ONLY)2020-06-02 05:47:00 Test [...] 0-0 (BEAKER) (test code = 413) SPIN/CONCENTRATION [id number] 13:46:00 Test Item Value Reference Range Interpretation Comments CONCENTRATION CHARGED (BEAKER) (test Done code = 2657) SPIN/CONCENTRATION [id number] 13:45:00 Test Item Value Reference Range Interpretation Comments CONCENTRATION CHARGED (BEAKER) (test Done code = 2657) [id number] 09:53:00 Test Item Value Reference Range Interpretation Comments FERRITIN (BEAKER) (test code = 66.41 ng/mL 5.00-275.00 361) Manager Integrated ID - ADMINHEMOGLOBIN [id number] 09:00:00 Test Item Value Reference Range Interpretation Comments HEMOGLOBIN A1C (BEAKER) (test code = 5.4 % 4.3-6.1 368) [id number] 06:43:00 Test Item Value Reference Range Interpretation Comments MAGNESIUM (BEAKER) (test code = 1.7 mg/dL 1.6-2.6 627) Manager Integrated ID - [id number] 06:43:00 Test Item Value Reference Range Interpretation Comments PHOSPHORUS (BEAKER) (test code = 2.9 mg/dL 2.3-4.7 604) Manager Integrated ID - ADMINCALCIUM, [id number] 05:33:00 Test Item Value Reference Range Interpretation Comments CALCIUM IONIZED (BEAKER) (test 1.07 mmol/L 1.12-1.27 L code = 698) PH, BLOOD (BEAKER) (test code = 7.42 1810) IRON, TIBC, % SAT. (WITHOUT FERRITIN)2020-05-31 19:56:00 Test Item Value Reference Range Interpretation Comments IRON (BEAKER) (test code = 547) 56.0 ug/dL 40.0-160.0 TOTAL IRON BINDING CAPACITY 351 ug/dL 250-450 (BEAKER) (test code = 769) IRON % SATURATION (2) (BEAKER) 16 % 20-55 L (test code = 2590) Manager Integrated ID - BSHEMOGLOBIN AND [id number] 19:36:00 Test Item Value Reference Range Interpretation Comments HEMOGLOBIN (BEAKER) (test code = 11.6 GM/DL 11.2-15.7 410) HEMATOCRIT (BEAKER) (test code = 34.8 % 34.1-44.9 411) Manager Integrated ID - 6000FL, FLUORO, NON-SPECIFIC, UP TO 1 [id number] 12:45:12 Reason for exam:->Repair NOnunion/Malunion Left Femur [facility] ARIANNE AMBRIZ : 1945 Sex: FFluoroscopic unit utilized for a procedure performed in the OR. No interpretation was requested. Refer to theoperative report for findings. Refer to PACS for patient radiation dose information.BASIC METABOLIC [id number] 09:36:00 Test Item Value Reference Range Interpretation [...] 697) EGFR (BEAKER) (test 90 mL/min/1.73 ESTIMA MALIKA GFR IS code = 1092) sq m NOT ACCURATE CREATININE CLEARANCE IN PREDICTING GLOMERULAR FILTRATION RATE . ESTIMATED GFR I S NOT APPLICABLE FOR DIALYSIS PATIEN TS. Manager Integrated ID - ROSIANGCBC (HEMOGRAM ONLY)2020-05-31 09:24:00 Test [...] 0-0 (BEAKER) (test code = 413) SARS-COV2/RT-PCR ([facility])2020-05-31 02:16:00 Test Item Value Reference Range Interpretation Comments SARS-COV2/RT-PCR (test Negative Not Detected, Negative, code = 1963330) See external report for linked test SARS-COV-2 PERFORMING LAB [facility] (test code = 1491914) Negative result for this test determines that [...] individuals suspected of COVID-19 by their healthcare provider.This test [...] justifying the authorization of the emergency use ofin vitro diagnostic tests for detection and/or diagnosis of COVID-19 is terminated under Section 564(b)(2) of the Act or the EUA is revoked under Section 564(g) of the Act.Testing was performed using the Hughes SARS-CoV-2 assay.Fact Sheet for Healthcare Providers:https://www.[employer]/vickie/RT_SAR N-PcP-8_YJZ_Oahe_Aftoo_30-137703.pdfFact Sheet for Healthcare Patients:https://www.[employer]/s al/UQ_YWRO-RnT-2_Mnldkkj_Qejm_Jiaav_WD_09-541296K9.pdfPerforming Laboratory:[address] [place] [address] BASIC METABOLIC [id number] 16:20:00 Test Item Value Reference Range Interpretation [...] 697) EGFR (BEAKER) (test 90 mL/min/1.73 ESTIMA MALIKA GFR IS code = 1092) sq m NOT ACCURATE CREATININE CLEARANCE IN PREDICTING GLOMERULAR FILTRATION RATE . ESTIMATED GFR I S NOT APPLICABLE FOR DIALYSIS PATIEN TS. Manager Integrated ID - BSBASIC METABOLIC [id number] 06:29:00 Test Item Value Reference Range Interpretation [...] S NOT APPLICABLE FOR DIALYSIS PATIEN TS. Manager Integrated ID - PIAYA LCBC (HEMOGRAM ONLY)2019-11-29 05:49:00 [...] (BEAKER) (test code = 413) HEMOGLOBIN AND [id number] 17:06:00 Test Item Value Reference Range Interpretation Comments HEMOGLOBIN (BEAKER) (test code = 9.0 GM/DL 11.2-15.7 L 410) HEMATOCRIT (BEAKER) (test code = 29.5 % 34.1-44.9 L 411) Manager Integrated ID - [id number], CHEST, 1 VIEW, NON [id number] 16:34:00Reason for exam:->SOBShould this be performed at the bedside?->YesFINAL REPORT TECHNIQUE: Frontal view of the chest. INDICATION: SOB. COMPARISON:Chest radiograph from 11/27/2019. FINDINGS: LINES/TUBES: None. LUNGS: Streaky opacities in the left base. Pulmonary vascular congestion. No consolidation or pulmonary edema. PLEURA: No pneumothorax or significant pleural effusion. HEART AND MEDIASTINUM: The cardiac silhouette is normal in size. SOFT TISSUES AND BONES: Hardware in the right humeral head with likely adjacent lucency. Rightward convex curvature of the thoracic spine. IMPRESSION: Pulmonary venous congestion. Subsegmental left basilar atelectasis. Hardware in the right humeral head with adjacent lucency from an indeterminate cause. A dedicated right shoulder radiograph should be considered. Signed: Yan Kaye [facility] Verified Date/Time: 11/28/2019 16:34:26 Reading Location: [address] Body Reading Room RAD, FEMUR, MIN. 2 VIEWS, [id number] 16:29:00Reason for exam:->right leg pain, h/o R femur fracture s/p roddingFINAL REPORT History: Right leg pain, history of prior right femoral trauma. FINDINGS: Right femur series, two views: AP and lateral views of the right femur show an intramedullaryrod and a total right knee prosthesis both [...] MDReport Verified Date/Time: 11/28/2019 16:29:20 Reading Location: [address] Transitional Reading Room BASIC METABOLIC [id number] 05:49:00 Test Item Value Reference Range Interpretation [...] S NOT APPLICABLE FOR DIALYSIS PATIEN TS. Manager Integrated ID - PIAYA LSpecimen slightly ictericCBC (HEMOGRAM [...] (BEAKER) (test code = 413) HEMOGLOBIN AND [id number] 21:43:00 Test Item Value Reference Range Interpretation Comments HEMOGLOBIN (BEAKER) (test code = 9.1 GM/DL 11.2-15.7 L 410) HEMATOCRIT (BEAKER) (test code = 29.2 % 34.1-44.9 L 411) Manager Integrated ID - 6000CBC (HEMOGRAM ONLY)2019-11-27 07:28:00 Test [...] = 413) RAD, CHEST, 1 VIEW, NON [id number] 05:41:00Reason for exam:->postop feverShould this be performed at the bedside?->YesFINAL REPORT Chest one view. Clinical history: postop fever Comparison: None. Te chnique: A single frontal view of the chest was obtained. Findings: The cardiomediastinal contours are stable. There is mild elevation of the right hemidiaphragm. There is mild discoid atelectasis in the left lung base. There is no pleural effusion or pneumothorax. Signed: Michael Jonse [facility] Verified Date/Time: 11/27/2019 05:41:21 HEMOGLOBIN AND [id number] 22:51:00 Test Item Value Reference Range Interpretation Comments HEMOGLOBIN (BEAKER) (test code = 7.2 GM/DL 11.2-15.7 L 410) HEMATOCRIT (BEAKER) (test code = 23.7 % 34.1-44.9 L 411) Manager Integrated ID - [id number] W/ REFLEX URINE [id number] 22:25:00 Test Item Value Reference Range Interpretation [...] = 1521) SOURCE(BEAKER) (test code = 2795) Manager Integrated ID - [auto]Manager Integrated ID - techCBC (HEMOGRAM ONLY)2019-11-26 05:16:00 Test Item Value Reference [...] WBC 0-0 (BEAKER) (test code = 413) IMMUNOGLOBULIN A (IGA)2019-11-25 17:48:00 Test Item Value Reference Range Interpretation Comments IMMUNOGLOBULIN A (IGA) (BEAKER) 98 mg/dL 63-484 (test code = 639) Manager Integrated ID - [id number] 17:24:00 Test Item Value Reference Range Interpretation Comments FERRITIN (BEAKER) (test code = 27.41 ng/mL 5.00-275.00 361) Manager Integrated ID - BSVITAMIN B12 AND [id number] 17:24:00 Test Item Value Reference Range Interpretation Comments VITAMIN B12 (BEAKER) (test code = 409 pg/mL 213-816 774) FOLATE (BEAKER) (test code = 362) 7.60 ng/mL >=7.00 Manager Integrated ID - BSIRON, TIBC, % SAT. (WITHOUT FERRITIN)2019-11-25 16:50:00 Test Item Value Reference Range Interpretation Comments IRON (BEAKER) (test code = 547) 13.0 ug/dL 40.0-160.0 L TOTAL IRON BINDING CAPACITY 306 ug/dL 250-450 (BEAKER) (test code = 769) IRON % SATURATION (2) (BEAKER) 4 % 20-55 L (test code = 2590) Manager Integrated ID - BSHEMOGLOBIN AND [id number] 13:28:00 Test Item Value Reference Range Interpretation Comments HEMOGLOBIN (BEAKER) (test code = 6.1 GM/DL 11.2-15.7 L 410) HEMATOCRIT (BEAKER) (test code = 20.4 % 34.1-44.9 L 411) Manager Integrated ID - [id number] METABOLIC [id number] 06:11:00 Test Item Value Reference Range Interpretation [...] 697) EGFR (BEAKER) (test 97 mL/min/1.73 ESTIMA MALIKA GFR IS code = 1092) sq m NOT ACCURATE CREATININE CLEARANCE IN PREDICTING GLOMERULAR FILTRATION RATE . ESTIMATED GFR I S NOT APPLICABLE FOR DIALYSIS PATIEN TS. Manager Integrated ID - NTPCBC (HEMOGRAM ONLY)2019-11-25 05:48:00 Test [...] 413) FL, FLUORO, NON-SPECIFIC, UP TO 1 [id number] 16:48:31Reason for exam:- >left femur fractureFluoroscopic unit utilized for a procedure performed in the OR. No interpretation was requested. Refer to the operative report for findings. Refer to PACS for patient radiation dose information.SARS-COV2/RT-PCR ([facility])2019-11-24 13:32:00 Test Item Value Reference Range Interpretation Comments SARS-COV2/RT-PCR (test Negative Not Detected, Negative, code = 1623568) See external report for linked test SARS-COV-2 PERFORMING LAB [facility] KAILYN (test code = 1391320) Negative result for this test determines that [...] individuals suspected of COVID-19 by their healthcare provider.This test [...] justifying the authorization of the emergency use ofin vitro diagnostic tests for detection and/or diagnosis of COVID-19 is terminated under Section 564(b)(2) of the Act or the EUA is revoked under Section 564(g) of the Act.Fact Sheet for Healthcare Prov iders:https://www.[employer]/sites/default/files/product/documents/Fact_Sheet_HC _Veyuiaemy_Tmgj_FYNF-CaP-0.pdfFact Sheet for Healthcare Patients:https://www.[employer]/sites/default/files/product/docume nts/Dsrl_Qfsaf_Qgdxsuyg_Ltgb_ASIX-GeN-8.pdfPerforming Laboratory:[facility].[place], [place] [address]WULTYIK D, 25-HYDROXY 2019-11-24 05:19:00 Test Item Value Reference Range Interpretation Comments VITAMIN D 25-OH (BEAKER) (test 25.5 ng/mL 6.6-49.9 code = 2764) Effective 01/08/2017: Reference Range ChangeNew: 6.6-49.9 ng/mL Previous: 13.0- 47.8 ng/mLRecommendedVitamin D Target Range: 30.0-40.0 ng/mLOperator ID - PIAYA LBASIC METABOLIC [id number] 05:16:00 Test Item Value Reference Range Interpretation [...] S NOT APPLICABLE FOR DIALYSIS PATIEN TS. Manager Integrated ID - EDASICBC (HEMOGRAM ONLY)2019-11-24 04:48:00 Test [...] = 413) RAD, FEMUR, MIN. 2 VIEWS, [id number] 18:43:00Reason for exam:->hip fracture, eval distal extentFINAL [...] the patient on lateral. Signed: Audie Franco [facility] Verified Date/Time: 11/23/2019 18:43:46 Reading Location: [facility] C0[facility] Transitional Reading Room BASIC METABOLIC [id number] 12:57:00 Test Item Value Reference Range Interpretation [...] 697) EGFR (BEAKER) (test 99 mL/min/1.73 ESTIMA MALIKA GFR IS code = 1092) sq m NOT ACCURATE CREATININE CLEARANCE IN PREDICTING GLOMERULAR FILTRATION RATE . ESTIMATED GFR I S NOT APPLICABLE FOR DIALYSIS PATIEN TS. Manager Integrated ID - NTPPROTHROMBIN [id number] 12:45:00 Test Item Value Reference Range Interpretation [...] is 2.5-3.5 for patients wiht mechanical heart valves.CBC W/PLT COUNT & AUTO [id number] 12:42:00 Test Item Value Reference Range Interpretation [...] in Respiratory specimen by MARY with probe [id number] 11:18:57 Test Item Value Reference Range Interpretation Comments SARS coronavirus 2 RNA Not detected Not-Detected [Presence] in Respiratory specimen by MARY with probe detection (test code = 03096-6) BERNADINE MAY coronavirus 2 RNA [Presence] in Respiratory specimen by MARY with probe [id number] 13:06:05 Test Item Value Reference Range Interpretation Comments SARS coronavirus 2 RNA Not detected Not-Detected [Presence] in Respiratory specimen by MARY with probe detection (test code = 18785-9) BERNADINE VENEGAS, KYPHOPLASTY, LUMBAR, [id number] 08:42:00What level(s) should be performed->L4-5Reason for exam:->COMPRESSION FRACTURE FINAL REPORT HISTORY: L4 and L5 wedge [...] and L5 vertebral bodies. Tracts were drilled througheach cannula into the L4 and L5 vertebral [...] within the L4 and L5 vertebral bodies. Follo wing methacrylate infusion, adequate distribution is seen within the L4 and L5 vertebral bodies without extravasation. IMPRESSION: 1. Technically successful L4 and L5 percutaneous vertebral augmentation. No immediate complications. Total flouroscopy time: 9.7 minsEstimated dose reported as (Ka,r): 619mGy Signed: Driss Dominique [facility] Verified Date/Time: 12/11/2016 08:42:31 Reading Location: [place] [address] Angio Body Reading Room BUN AND [id number] 06:18:00 Test Item Value Reference Range Interpretation [...] (BEAKER) (test code = 413) BASIC METABOLIC [id number] 06:49:00 Test Item Value Reference Range Interpretation [...] NOT APPLICABLE FOR DIALYSIS PATIEN TS. PROTHROMBIN TIME/[id number] 06:31:00 Test Item Value Reference Range Interpretation Comments PROTIME (BEAKER) (test code = 13.4 seconds 11.7-14.7 759) INR (BEAKER) (test code = 370) 1.0 <=5.9 RECOMMENDED COUMADIN/WARFARIN INR THERAPY RANGESSTANDARD DOSE: 2.0 - 3.0 Includes: PROPHYLAXIS for venous thrombosis, systemic embolization; TREATMENT for venous thrombosis and/or pulmonary embolus.HIGH RISK: Target INR is 2.5-3.5 for patients with mechanical heart valves.[id number] 06:31:00 Test Item Value Reference Range Interpretation Comments PARTIAL THROMBOPLASTIN TIME 26.2 seconds 22.5-36.0 (BEAKER) (test code = 760) CBC W/PLT COUNT & AUTO [id number] 06:23:00 Test Item Value Reference Range Interpretation [...] code = 2801) MYOCARD IMAGING, MULTI, PHARM, [id number] 14:11:00Please do D SPECT camera for this patient Reason for exam:->Chest PainFINAL REPORT PROCEDURE: Rest/Stress MYOCARDIAL PERFUSION SPECT with regadenoson \\XA9\\ CPT CODE: 80965 INDICATION: Chest pain, acute, nonspecific, low probability [...] FROM NONINVASIVE CARDIOLOGY: Pharmacologic stress was by 10-s econd iv infusion of 0.4 mg of regadenoson. [...] LV wall motion and thickening. QGS LVEF is>70% at stress and rest. IMPRESSION: 1. Normal study. 2. Appropriate pharmacologic stress. 3. Normal myocardial perfusion. 4. Normal resting LV function. 5. Normal extracardiac tracer distribution. 6. No previous [facility] study for comparison. NONINVASIVE RISK STRATIFICATION: The above findings are considered low risk (<1% annual mortality rate) based on the following criterion:- Normal or small myocardial perfusion defect at rest or with stress(JACC. 2012;59(9):857-89.) Signed: Alvaro Lockhart MDRep[facility] Verified Date/Time: 12/04/2016 14:11:13 Reading Location: [address] Reading Room RAD, SPINE, SCOLIOSIS STUDY, 2 OR 3 [id number] 16:17:00Reason for exam:->scoliosis of lumbar spine, RLE weakness/radiculopathyFINAL REPORT TECHNIQUE: [...] evaluate on the lateral view given degree ofosteopenia. Visualized lungs are clear. Normal bowel gas pattern is visualized. IMPRESSION:25 degreescoliosis of the thoracolumbar spine with a rotary component in the lumbar spine. 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 Thevisualized orbital contents, skullbase and surrounding soft tissues are unremarkable. There is right-sided sphenoid sinus mucosal thickening. Impressions: Chronic cerebral findings as discussed with symmetric medial temporal volume loss. No specific evidence of acute abnormality. No specific evidence for meningioma. Consider follow-up pre and postcontrast head CT to better evaluate for extra-axial calcification. Signed: Taylor Rodriguez Verified Date/Time: 12/03/2016 09:02:27 Reading Location: [facility] B1 C013V Neuro Reading Room [id number] 05:45:00 Test Item Value Reference Range Interpretation Comments MAGNESIUM (BEAKER) (test code = 1.8 mg/dL 1.6-2.6 627) BASIC METABOLIC [id number] 05:45:00 Test Item Value Reference Range Interpretation [...] PATIEN TS. CBC W/PLT COUNT & AUTO [id number] 05:31:00 Test Item Value Reference Range Interpretation [...] PERCENT (BEAKER) (test code = 2801) TROPONIN [id number] 01:13:00 Test Item Value Reference Range Interpretation Comments TROPONIN I (BEAKER) (test code = 397) < ng/mL 0.00-0.03 Effective 02/15/2014: Reference Range ChangeNew: 0.00-0.03 Previous 0.00- 0.15Troponin I (TnI) levelsmust be interpreted in the context of the [...] failure, acidosis, acute neurological disease, and persistent tachyarrhythmia.TROPONIN [id number] 19:15:00 Test Item Value Reference Range Interpretation Comments TROPONIN I (BEAKER) (test code = 0.01 ng/mL 0.00-0.03 397) Effective 02/15/2014: Reference Range ChangeNew: 0.00-0.03 Previous 0.00- 0.15Troponin I (TnI) levelsmust be interpreted in the context of the [...] failure, acidosis, acute neurological disease, and persistent tachyarrhythmia.TROPONIN [id number] 12:09:00 Test Item Value Reference Range Interpretation Comments TROPONIN I (BEAKER) (test code = 0.02 ng/mL 0.00-0.03 397) Effective 02/15/2014: Reference Range ChangeNew: 0.00-0.03 Previous 0.00- 0.15Troponin I (TnI) levelsmust be interpreted in the context of the [...] failure, acidosis, acute neurological disease, and persistent tachyarrhythmia.[id number] 06:18:00 Test Item Value Reference Range Interpretation Comments MAGNESIUM (BEAKER) (test code = 1.7 mg/dL 1.6-2.6 627) BASIC METABOLIC [id number] 06:18:00 Test Item Value Reference Range Interpretation [...] PATIEN TS. CBC W/PLT COUNT & AUTO [id number] 05:54:00 Test Item Value Reference Range Interpretation [...] 0-1 PERCENT (BEAKER) (test code = 2801) [id number] 10:28:00 Test Item Value Reference Range Interpretation Comments MAGNESIUM (BEAKER) (test code = 1.6 mg/dL 1.6-2.6 627) BASIC METABOLIC [id number] 10:28:00 Test Item Value Reference Range Interpretation [...] NOT APPLICABLE FOR DIALYSIS PATIEN TS. LIPID [id number] 10:28:00 Test Item Value Reference Range Interpretation Comments TRIGLYCERIDES (BEAKER) (test code = 66 mg/dL 540) CHOLESTEROL (BEAKER) (test code = 170 mg/dL 631) HDL CHOLESTEROL (BEAKER) (test code 58 mg/dL = 976) LDL CHOLESTEROL CALCULATED (BEAKER) 99 mg/dL (test code = 633) Triglyceride Reference Range: Low Risk <150 Borderline 150-199 High Risk 200- 499 Very High Risk >=500Cholesterol Reference Range: Low Risk <200 Borderline 200-239 High Risk >240HDL Cholesterol Reference Range: Low Risk >=60 High Risk <40LDL Cholesterol Reference Range: Optimal <100 Near Optimal 100-129 Borderline 130-159 High 160-189 Very High >=190PROTHROMBIN [id number] 10:22:00 Test Item Value Reference Range Interpretation Comments PROTIME (BEAKER) (test code = 14.2 seconds 11.7-14.7 759) INR (BEAKER) (test code = 370) 1.1 <=5.9 RECOMMENDED COUMADIN/WARFARIN INR THERAPY RANGESSTANDARD DOSE: 2.0 - 3.0 Includes: PROPHYLAXIS for venous thrombosis, systemic embolization; TREATMENT for venous thrombosis and/or pulmonary embolus.HIGH RISK: Target INR is 2.5-3.5 for patients with mechanical heart valves.CBC W/PLT COUNT & AUTO [id number] 10:11:00 Test Item Value Reference Range Interpretation [...] % 0-1 PERCENT (BEAKER) (test code = 0844) Sacrum And CoccyxSacrum And Coccyx
[2023-01-03 22:45] LABS: Protime INR 1.03
[2023-01-03 22:47] LABS: Hematocrit 31.1 % (36.0-45.0); Lymphocytes % 8.2 % (15.3-44.8); MCV 63.2 fL (80-100); MPV 8.1 fL (7.6-11.3); Platelets 349 thou/uL (152-406); RBC Red Blood Cell Count 4.92 M/uL (3.86-4.86)
[2023-01-03 23:02] LABS: Albumin 3.1 g/dL (3.4-5.0); Bilirubin Direct 0.2 mg/dL (0-0.2); Bilirubin Indirect, Calculated 0.4 mg/dL (0.2-0.8); Bilirubin Total 0.6 mg/dL (0.2-1.0); Magnesium 2.1 mg/dL (1.6-2.4); Potassium 3.9 mEq/L (3.5-5.1); Protein, Total 7.7 g/dL (6.4-8.2); Troponin High Sensitivity 6.7 pg/mL (<58.9)
[2023-01-04] MEDS ORDERED: NA CHLORIDE 0.9% 0 ML ONE (00:02)
[2023-01-04] MEDS ORDERED: HYDROCODONE/APAP 5/325 MG TAB ONE (00:28)
--- NOTE | 2023-01-04 02:36 | EDPHYS ---
Physician Documentation [facility] Name: Arianne Ambriz Age: 77 yrs Sex: Female : 1945 Arrival Date: 01/03/2023 Time: 22:12 Bed 2 Private MD: ED Physician Mino Alexander HPI: 01/03 22:28 This 77 yrs old Female presents to ER via EMS with complaints of General sp4 complaint . 01/04 00:33 Patient presents with complaints of nonspecific chest pain that has been occurring on sb4 and off for about 2 weeks now. Her main complaint when speaking with me is the heat rash that she has been battling with steroids and creams and her chronic back pain. She states that her chest pain feels like her chest and abdomen are "on fire "she denies any diaphoresis, radiated pain, nausea, vomiting, fever, shortness of breath. Historical: - Allergies: 01/03 22:20 butorphanol; jb4 22:20 Ciprofloxacin (DIZZINESS); jb4 22:20 Erythromycin; jb4 22:20 GABAPENTIN; jb4 22:20 Levaquin; jb4 22:20 Neurontin; jb4 22:20 Stadol; (cardiac arrest); jb4 22:20 TETRACYCLINES; jb4 - PMHx: 22:20 Arthritis; Back pain; William hip bursitis; Chronic pain; Complication of anesthesia; DVT; jb4 GERD; Hypertension; - Immunization history:: Adult Immunizations up to date. - Social history:: Smoking status: Patient denies any tobacco usage or history of. ROS: 01/04 00:33 Constitutional: Negative for fever, chills, and weight loss, sb4 Cardiovascular: Positive for chest pain, Back: Positive for pain at rest, Skin: Positive for rash, All other systems are negative, Exam: 00:33 Constitutional: This is a well developed, well nourished patient who is awake, alert, sb4 and in no acute distress. Head/Face: Normocephalic, atraumatic. Eyes: Extra-ocular motions intact. Periorbital areas with no swelling, redness, or edema. ENT: Mucous membranes moist. Cardiovascular: Regular rate and rhythm with a normal S1 and S2. Respiratory: Lungs have equal breath sounds bilaterally, clear to auscultation and percussion. No rales, rhonchi or wheezes noted. No increased work of breathing, no retractions or nasal flaring. Abdomen/GI: Soft, non-tender, no distension. Skin: Warm, dry with normal turgor. Normal color with no rashes, no lesions, and no evidence of cellulitis. MS/ Extremity: Pulses equal, no cyanosis. Neurovascular intact. Full, normal range of motion. Neuro: Awake and alert, GCS 15, oriented to person, place, time, and situation. Motor strength 5/5 in all extremities. Sensory grossly intact. 00:33 ECG was reviewed by the Attending Physician. Vital Signs: 01/03 22:17 BP 169 / 83; Pulse 106; Resp 20; Temp 98.7(O); Pulse Ox 100% on R/A; Weight 58.97 kg jb4 (R); Height 5 ft. 5 in. (R); 23:24 BP 168 / 78; Pulse 95; Resp 16; Pulse Ox 100% on R/A; jb4 01/04 00:36 BP 170 / 76; Pulse 99; Resp 18 S; Pulse Ox 97% on R/A; ha1 01:32 BP 144 / 67; Pulse 94; Resp 18; Pulse Ox 96% on R/A; jb4 02:27 BP 150 / 82; Pulse 89; Resp 16; Pulse Ox 98% on R/A; jb4 04:29 BP 131 / 68; Pulse 82; Resp 19 S; Pulse Ox 97% on R/A; as6 01/03 22:17 Body Mass Index 21.63 (58.97 kg, 165.1 cm) jb4 MDM: 01/03 22:29 Patient medically screened. sb4 01/04 00:33 Differential diagnosis: acute myocardial infarction, anxiety, chest wall pain, sb4 costochondritis, pleurisy, pneumonia, stable angina. The patient was not given aspirin in the Emergency Department. Administered by EMS. Scoring Tools HEART Score: History: ECG: Age: Risk Factors: 1 or 2 risk factors (1), Troponin: Total Score = 3. 02:33 Data reviewed: vital signs, nurses notes, EMS record, assisted records, lab test sb4 result(s), EKG, radiologic studies, and as a result, I will discharge patient. Consideration of Admission/Observation Escalation of care including admission/observation considered. Care significantly affected by the following chronic conditions: Hypertension. Counseling: I had a detailed discussion with the patient and/or guardian regarding the historical points, exam findings, and any diagnostic results supporting the discharge/admit diagnosis, the presence of at least one elevated blood pressure reading (>120/80) during this emergency department visit, lab results, radiology results, to return to the emergency department if symptoms worsen or persist or if there are any questions or concerns that arise at home. ED course: chest pain is highly unlikely to be cardiac, trop x 2 negative, ekg WNL, safe for dc. return precautions given. 01/03 22:29 Order name: Basic Metabolic Panel; Complete Time: 23:02 sb4 01/03 22:29 Order name: CBC with Diff; Complete Time: 22:54 sb4 01/03 22:29 Order name: LFT's; Complete Time: 23:02 sb4 01/03 22:29 Order name: Magnesium; Complete Time: 23:02 sb4 01/03 22:29 Order name: NT PRO-BNP; Complete Time: 23:02 sb4 01/03 22:29 Order name: PT-INR; Complete Time: 22:46 sb4 01/03 22:29 Order name: Troponin HS; Complete Time: 23:02 sb4 01/04 01:27 Order name: Troponin High Sensitivity; Complete Time: 02:52 sb4 01/03 22:29 Order name: XRAY Chest (1 view) sb4 01/03 22:29 Order name: EKG; Complete Time: 22:30 sb4 01/03 22:29 Order name: Cardiac monitoring; Complete Time: 22:41 sb4 01/03 22:29 Order name: EKG - Nurse/Tech; Complete Time: 22:41 sb4 01/03 22:29 Order name: IV Saline Lock; Complete Time: 22:41 sb4 01/03 22:29 Order name: Labs collected and sent; Complete Time: 22:41 sb4 01/03 22:29 Order name: O2 Per Protocol; Complete Time: 22:41 sb4 01/03 22:29 Order name: O2 Sat Monitoring; Complete Time: 22:41 sb4 EC:33 Rate is 105 beats/min. Rhythm is regular, Sinus tachycardia. OK interval is normal at sb4 158 msec. QRS interval is normal at 78 msec. QT interval is normal at 328 msec. No Q waves. T waves are Normal. No ST changes noted. Clinical impression: Normal ECG. Interpreted by me. Reviewed by me. Administered Medications: 01/03 23:53 Not Given (Physician Discretion): ns 0.9% 1000 ml IV at 1 bolus Per protocol; 1000 mL sb4 bolus 01/04 00:20 Drug: HYDROcodone-acetaminophen PO 5 mg-325 mg 2 tabs PO once Route: PO; jb4 04:29 Follow up: Response: No adverse reaction as6 Disposition: 01:09 Co-signature as Attending Physician, Mino Alexander MD I agree with the assessment sp4 and plan of care. I reviewed the patient's care provided by the Advanced Practice Provider and agree with the diagnosis and treatment plan. Disposition Summary: 01/04/23 02:36 Discharge Ordered Notes: Location: Home sb4 Problem: an ongoing problem sb4 Symptoms: have improved sb4 Condition: Stable sb4 Diagnosis - Chest pain, unspecified sb4 Followup: sb4 - With: Emergency Department - When: As needed - Reason: Trouble breathing, Worsening of condition Discharge Instructions: - Discharge Summary Sheet sb4 - Nonspecific Chest Pain, Adult, [id number] sb4 Forms: - Medication Reconciliation Form sb4 - Thank You Letter sb4 - Antibiotic Education sb4 - Prescription Opioid Use sb4 - Patient Portal Instructions sb4 - Leadership Thank You Letter sb4 Signatures: Dispatcher [employer] EDVishal Simon RN RICO jb4 Jonathan Damon RN RN as6 Mary Jane Sue PA-C PADarin sb4 Mino Alexander MD MD sp4 Corrections: (The following items were deleted from the chart) 00:00 01/03 23:46 URINE SODIUM RANDOM+CHEM UR.LAB.BRZ ordered. EDMS EDMS
--- NOTE | 2023-01-04 02:36 | ER ---
Nurse's Notes [facility] Name: Arianne Ambriz Age: 77 yrs Sex: Female : 1945 Arrival Date: 01/03/2023 Time: 22:12 Bed 2 Private MD: Diagnosis: Chest pain, unspecified Presentation: 01/03 22:17 Chief complaint: EMS states: Pt reports chest pain and shortness of breath for the past jb4 3 days that has progressively been getting worse. Chest pain radiates to her abdomen. Was given 325mg of ASA. last temp was 99.0. Coronavirus screen: At this time, the client does not indicate any symptoms associated with coronavirus-19. Ebola Screen: No symptoms or risks identified at this time. Initial Sepsis Screen: Does the patient meet any 2 criteria? HR > 90 bpm. Yes Does the patient have a suspected source of infection? No. Patient's initial sepsis screen is negative. Risk Assessment: Do you want to hurt yourself or someone else? Patient reports no desire to harm self or others. Onset of symptoms was December 31, 2022. Transition of care: patient was received from another setting of care (long-term care facility), [facility]. 22:17 Method Of Arrival: EMS: [facility] jb4 22:17 Acuity: THADDEUS 3 jb4 Historical: - Allergies: 22:20 butorphanol; jb4 22:20 Ciprofloxacin (DIZZINESS); jb4 22:20 Erythromycin; jb4 22:20 GABAPENTIN; jb4 22:20 Levaquin; jb4 22:20 Neurontin; jb4 22:20 Stadol; (cardiac arrest); jb4 22:20 TETRACYCLINES; jb4 - PMHx: 22:20 Arthritis; Back pain; William hip bursitis; Chronic pain; Complication of anesthesia; DVT; jb4 GERD; Hypertension; - Immunization history:: Adult Immunizations up to date. - Social history:: Smoking status: Patient denies any tobacco usage or history of. Screenin:22 [facility] ED Fall Risk Assessment (Adult) History of falling in the last 3 months, jb4 including since admission No falls in past 3 months (0 pts) Confusion or Disorientation No (0 pts) Score/Fall Risk Level 0 - 2 = Low Risk Oriented to surroundings. Abuse screen: Denies threats or abuse. Nutritional screening: No deficits noted. Tuberculosis screening: No symptoms or risk factors identified. Assessment: 22:22 General: Appears in no apparent distress. comfortable, Behavior is calm, cooperative, jb4 appropriate for age. Pain: Complains of pain in chest Pain radiates to abdomen Pain currently is 6 out of 10 on a pain scale. Neuro: Level of Consciousness is awake, alert, obeys commands, Oriented to person, place, time, situation. Cardiovascular: Patient's skin is warm and dry. Respiratory: Airway is patent Respiratory effort is even, unlabored, Respiratory pattern is regular, symmetrical. GI: No signs and/or symptoms were reported involving the gastrointestinal system. : No signs and/or symptoms were reported regarding the genitourinary system. EENT: No signs and/or symptoms were reported regarding the EENT system. Derm: Skin is intact, Skin is pink, warm \T\ dry. Musculoskeletal: Circulation, motion, and sensation intact. Range of motion: intact in all extremities. 23:00 Reassessment: pt.'s daughter Juju # [phone]. ha1 23:24 Reassessment: Patient appears in no apparent distress at this time. Patient and/or jb4 family updated on plan of care and expected duration. Pain level reassessed. Patient is alert, oriented x 3, equal unlabored respirations, skin warm/dry/pink. 01/04 00:36 Reassessment: Patient and/or family updated on plan of care and expected duration. Pain ha1 level reassessed. Patient is alert, oriented x 3, equal unlabored respirations, skin warm/dry/pink. Vital Signs: 01/03 22:17 BP 169 / 83; Pulse 106; Resp 20; Temp 98.7(O); Pulse Ox 100% on R/A; Weight 58.97 kg jb4 (R); Height 5 ft. 5 in. (R); 23:24 BP 168 / 78; Pulse 95; Resp 16; Pulse Ox 100% on R/A; jb4 01/04 00:36 BP 170 / 76; Pulse 99; Resp 18 S; Pulse Ox 97% on R/A; ha1 01:32 BP 144 / 67; Pulse 94; Resp 18; Pulse Ox 96% on R/A; jb4 02:27 BP 150 / 82; Pulse 89; Resp 16; Pulse Ox 98% on R/A; jb4 04:29 BP 131 / 68; Pulse 82; Resp 19 S; Pulse Ox 97% on R/A; as6 01/03 22:17 Body Mass Index 21.63 (58.97 kg, 165.1 cm) jb4 ED Course: 01/03 22:17 Patient arrived in ED. jb4 22:20 Triage completed. jb4 22:20 Arm band placed on right wrist. jb4 22:22 Patient has correct armband on for positive identification. Bed in low position. Call jb4 light in reach. Side rails up X 1. Client placed on continuous cardiac and pulse oximetry monitoring. NIBP monitoring applied. monitoring analyst on. 22:28 Mino Alexander MD is Attending Physician. sp4 22:29 Mary Jane Sue PA-C is PHCP. sb4 22:53 XRAY Chest (1 view) In Process Unspecified. EDMS 23:20 Vishal Germain RN is Primary Nurse. jb4 01/04 02:27 IV discontinued, intact, bleeding controlled, No redness/swelling at site. Pressure jb4 dressing applied. Inserted saline lock: 24 gauge in right hand, using aseptic technique. Blood collected. 04:28 Provided Education on: follow up. as6 04:28 No provider procedures requiring assistance completed. as6 Administered Medications: 01/03 23:53 Not Given (Physician Discretion): ns 0.9% 1000 ml IV at 1 bolus Per protocol; 1000 mL sb4 bolus 01/04 00:20 Drug: HYDROcodone-acetaminophen PO 5 mg-325 mg 2 tabs PO once Route: PO; jb4 04:29 Follow up: Response: No adverse reaction as6 Medication: 04:26 VIS not applicable for this client. as6 Outcome: 02:36 Discharge ordered by MD. sb4 04:28 Discharged to home via wheelchair, as6 04:28 Condition: stable 04:28 Discharge instructions given to patient, Instructed on discharge instructions, follow up and referral plans. Demonstrated understanding of instructions, follow-up care, 04:29 Patient left the ED. as6 Signatures: Dispatcher [employer] EDMS Vishal Germain RN RN jb4 Jonathan Damon RN RN as6 Teresa Elias RN RN ha1 Mary Jane Sue PA-C PA-C sb4 Aureliomary, Mino, MD MD sp4
[2023-01-04 04:59] VITALS: TEMP 98.7
[2023-01-04 05:19] VITALS: BP 131/68; O2SAT 97
--- NOTE | 2023-01-04 18:05 | RAD REPORT ---
EXAM DESCRIPTION: XR Chest, 1 View CLINICAL HISTORY: CHEST PAIN TECHNIQUE: Frontal view of the chest. COMPARISON: No relevant prior studies available. FINDINGS: Lungs: Coarsened interstitial markings. No focal consolidation. Pleural space: Unremarkable. No pneumothorax. Heart: Unremarkable. No cardiomegaly. Mediastinum: Unremarkable. Bones/joints: Right humeral head suture anchor. Upper abdomen: Mild elevation of the right hemidiaphragm. IMPRESSION: No acute disease. Electronically signed by: Mahesh Benavides MD 01/03/2023 11:52 PM CDT Due to temporary technical issues with the PACS/Fluency reporting system, reports are being signed by the in house radiologists without review as a courtesy to insure prompt reporting. The interpreting radiologist is fully responsible for the content of the report.
--- NOTE | 2023-01-06 12:22 | EKG ---
Test Date: 2023-01-03 Test Time: 22:28:52 Propellant Charge Loader: ALIREZA MEASUREMENT RESULTS: Intervals: Rate: 105 GA: 158 QRSD: 78 QT: 328 QTc: 433 [place]: P: 56 GA: 158 QRS: 10 T: 39 INTERPRETIVE STATEMENTS: Sinus tachycardia Otherwise normal ECG Compared to ECG 11/23/2019 05:07:37 No significant changes Electronically Signed On 01-06-23 12:17:12 CDT by Ranjeet Siddiqi
== END 2023-01-04 04:29 | disposition home or self-care (01) ==
LOC: ER 22:12
DX: R07.9 Chest pain, unspecified (principal); R21 Rash and other nonspecific skin eruption; M54.9 Dorsalgia, unspecified; Z88.1 Allergy status to other antibiotic agents; Z88.6 Allergy status to analgesic agent; Z88.8 Allergy status to other drugs, medicaments and biological substances
CPT/HCPCS: 36415; 71045; 80048; 80076; 83735; 83880; 84484; 85025; 85610; 93005; 99285; J7030

== ENCOUNTER 2023-01-16 04:35 | Emergency (ER) | payer OTHER, BC ==
--- OUTSIDE RECORDS SUMMARY | 2023-01-16 04:42 | XMS REPORT | Continuity of Care Document ---
:1945 Author Organization [facility] t Address [address] [place] [place] [address] Care Team Providers Name Role Phone RAMBO CASTELLANO JR Primary Care Physician Unavailable Ayo Groves Attending Clinician Unavailable [id number] Attending Clinician Unavailable Erika Broussard Kelcey Attending Clinician Unavailable KRISTIN GLEZ Attending Clinician Unavailable TAYLOR RABAGO Attending Clinician Unavailable FELICIA LEE Attending Clinician Unavailable DARYL PÉREZ Attending Clinician Unavailable BRYSON MOTA Attending Clinician Unavailable MD JHOANA ESTRADA Attending Clinician Unavailable JHOANA ESTRADA Attending Clinician Unavailable NISHA STEWARD Attending Clinician Unavailable [id number] Admitting Clinician Unavailable Erika Broussard Kelcey Admitting Clinician Unavailable BRYSON MOTA Admitting Clinician Unavailable TAYLOR RABAGO Admitting Clinician Unavailable FELICIA LEE Admitting Clinician Unavailable PINEDA HUGO Admitting Clinician Unavailable MD JHOANA ESTRADA Admitting Clinician Unavailable JHOANA ESTRADA Admitting Clinician Unavailable NISHA STEWARD Admitting Clinician Unavailable Payers Payer Name Policy Type Policy Number Effective Date Expiration Date Camron ca MCR MCR [id number] BCTX BCTI [id number] MEDICARE A B [id number] 2008 00:00:00 BCBS INDEMN[place] [id number] 2008 [place] OS 00:00:00 CDC REVIEW [id number] 2019 2020 00:00:00 00:00:00 Blue Cross Blue 6 [id number] 2008 [facility] Shield of [place] 00:00:[address] - 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 11-29 [facility] malnutriti malnutriti 00:00: Me dical on, severe on, severe 00 Ce nter Acute low Acute low Disease Active [facility] back pain back pain 11-29 [facility] s 00:00: Medical 00 [place] Physical Physical Disease Active [facility] S t deconditio deconditio 11-29 [facility]es rylee rylee 00:00: Medical 00 [place] Chest pain Chest pain Disease Active C [facility] 11-29 [facility] 00:[facility]: Medical 00 [place] Chronic Chronic Disease Active Methodi prescripti prescripti [...] st disease disease 00:00: Hospita 00 l HTN HTN Disease Active Overview: [facility] (hypertens (hypertens Formattin [facility] ion) ion) g of this Medical note Center might be different from the original. 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 syndrome e [facility] Anorexia Anorexia Problem Commo n [facility] Chronic Chronic Problem Common back pain back pain Spir it [facility] Allergy Allergic Problem Common [facility] Constipati Constipati Problem C ommon on on [facility] [id number] Other Problem Common pulmonary Spirit embolism - [facility] without St acute cor [facility] pulmonale, Medica l unspecifie Center d chronicity Flu Flu Problem Common vaccine vaccine Spirit needed need [facility] Peripheral Venous Problem Commo n venous (periphera Spirit insufficie l) - CHI ncy insufficie [facility] [id number] Anemia due Problem Co mmon to other Spirit cause, not - CHI classified [facility] [id number] Venous Problem Common insufficie Spirit ncy of - 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 vein of [facility] left lower Center extremity [id number] History of Problem Co mmon fall [facility] Gastroesop GERD Problem Commo n hageal (gastroeso Spirit reflux phageal - CHI disease reflux St disease) [facility] Osteoporos Osteoporos Problem C ommon is is, Spirit unspecifie - CHI d osteoporos [facility] is type, Medical unspecifie Center d pathologic al fracture presence [id number] Adjustment Problem Com mon disorder, Spirit unspecifie - CHI d [facility] Anxiety Anxiety Problem Common [facility] [id number] Pruritic Problem Comm on dermatitis [facility] - [facility] [id number] Venous Problem Common insufficie [facility] ncy - [facility] [id number] Varicose Problem Commo n veins of Spirit bilateral - CHI lower extremitie [facility] s with Medical other Center complicati ons [id number] Opioid Problem Common dependence [facility] , - [facility] continuous [facility] Allergies, Adverse Reactions, Alerts Allergy Allergy [...] drug Nabumeto Propensi Active Nausea Only 2015- M ethodi ne ty to 05-12 st [...] 0-06 ation [facility] n[facility] 00:00: Medical 00 [place] Nabumeto Drug Active Nausea Only 2014-03 CHI [...] Intolera 3-13 [facility] nce 00:00: Medical 00 [place] Moxiflox Drug Active Nausea Only [facility] acin Intolera 3-13 [facility] nce 00:00: Medical 00 [place] Tolterod Drug Active Nausea Only [facility] ine Intolera 3-13 [facility] nce 00:00: Medical 00 Center Doxycycl Drug Active Other (See Abdominal C HI St ine Intolera Comments) 3-13 pain [facility] Hyclate nce 00:00: Medical 00 [place] Erythrom Drug Active Nausea Only [facility] ycin Intolera 3-13 [facility] nce 00:00: Medical 00 [place] Levoflox Drug Active Nausea Only [facility] acin Intolera 3-13 [facility]ukes nce 00:00: Medical 00 [place] BUTORPHA Allergy Active High Anaphylaxis 2013- SL EH NOL 3-12 TARTRATE 00:00: 00 Butorpha Drug Active Anaphylaxis 2013- [facility] nol Allergy 3-12 [facility] Tartrate 00:00: Medical 00 [place] Adhesive Propensi Active Swelling 0 Itching & [...] gabapent Active anaphylaxis C ommon in in [facility] 1285 Drug Active anaphylaxis Commo n allergy [facility] 9041 Drug Active Unknown Common allergy [facility] Family History Family Member Diagnosis Comments Start Date Stop Date Source Natural father Cancer [facility] Natural mother Heart attack [facility] Natural mother Hypertension [facility] Natural mother Osteoporosis [facility] Paternal grandfather Stroke [facility] Paternal grandmother Stroke [facility] Natural sister Diabetes [facility] Social History Social Habit Start Date Stop Date Quantity Comments Source History of Tobacco [facility] Sexual orientation Method ist Hospital History of Social 2022-07-04 2022-07-[address] function 00:00:00 00:00:00 Hospital Alcohol intake 2020-06-02 2020-06-[address] Kamilla es 00:00:00 00:00:00 non-drinker of Medical nter alcohol (finding) Tobacco Comment 2020-05-30 2020-05-30 quit ~ [facility] Center Tobacco use and 2020-05-30 2020-05-[address] [facility] k[facility] exposure 00:00:00 00:00:00 tobacco non-user [facility] Cigarettes smoked 2016-11-13 2016-11-[address] current (pack per 00:00:00 00:00:00 Hospita l day) - Reported Cigarette 2016-11-13 2016-11-13 [facility] pack-years 00:00:00 00:00:00 Hospital Sex Assigned At [address] [facility] 00[facility]00:00 00:00:00 Medical Center Smoking Status Start Date Stop Date Source Former Smoker 2022-02-16 00:00:00 2022-02-16 00:00:00 [facility] Never Smoker [facility] Medications Ordered Filled Start Stop Current Ordering Indication Dosage Frequency Signature Comments Components Source Medication Medication Date Date Medication? Clinician (SIG) Name Name Amee Megestrol 2021- No 1{table BID Megestrol Acetate 20 Acetate 20 6-10 07-10 t} Acetate 20 MG MG 00:00: 00:00 MG 00 :00 Mirtazapine Mirtazapine No QD Mirtazapin 15 MG 15 MG 5-25 e 15 MG 00:00: 00 Mirtazapine Mirtazapine 0 No QD Mirtazapin 15 MG 15 MG 5-25 e 15 MG 00:00: 00 Mirtazapine Mirtazapine No QD Mirtazapin 15 MG 15 MG 5-25 e 15 MG 00:00: 00 Mirtazapine Mirtazapine 0 No QD Mirtazapin 15 MG 15 MG 5-25 e 15 MG 00:00: 00 oxyCODone Yes [id number] 20mg Q.25D Take 1 Meth [place] (ROXICODONE 4-15 tablet (20 st ) 20 MG 00:00: mg total) Hospi ta tablet 00 by mouth 4 l (four) times a day for 30 days .chronic pain. oxyCODone Yes [id number] 20mg Q.25D Take 1 Meth [place] (ROXICODONE 4-15 tablet (20 st ) 20 MG 00:00: mg total) Hospi ta tablet 00 by mouth 4 l (four) times a day for 30 days .chronic pain. oxyCODone Yes [id number] 20mg Q.25D Take 1 Meth [place] (ROXICODONE 3-16 tablet (20 st ) 20 MG 00:00: mg total) Hospi ta tablet 00 by mouth 4 l (four) times a day for 30 days .chronic pain. oxy[place]OD[place] Yes [id number] 20mg Q.25D Take 1 Meth [place] (ROXICODONE 3-16 tablet (20 st ) 20 MG 00:00: mg total) Hospi ta tablet 00 by mouth 4 l (four) times a day for 30 days .chronic pain. oxyCODone 2021-0 Yes [id number] 20mg Q.25D Take 1 Meth [place] (ROXICODONE 2-16 tablet (20 st ) 20 MG 00:00: mg total) Hospi ta tablet 00 by mouth 4 l (four) times a day for 30 days .chronic pain. Max Daily Amount: 80 mg oxyCODone 2-0 Yes [id number] 20mg Q.25D Take 1 Meth [place] (ROXICODONE 2-16 tablet (20 st ) 20 MG 00:00: mg total) Hospi ta tablet 00 by mouth 4 l (four) times a day for 30 days .chronic pain. Max Daily Amount: 80 mg tiZANidine 2021-0 Yes [id number] 4mg Q8H Take 1 Methodi (ZANAFLEX) 2-10 tablet (4 st 4 MG tablet 00:00: mg total) H ospita 00 by mouth l every 8 (eight) hours as needed for muscle spasms. tiZANidine 2021-0 Yes [id number] 4mg Q8H Take 1 Methodi (ZANAFLEX) 2-10 [...] suspension times a day for 90 days. megestroL 2020-03 Yes 400mg Q.5D Take 10 [...] ical 46 (eight) Center hours as needed. nitroglycer [address] 0[address] in 3-10 mg under [facility] (NITROSTAT) 17:15: the tongue Medical 0.[address] SL 46 every 5 Center tablet (five) minutes as needed. tiZANidine 0 Yes muscle 4mg Take [address] (ZANAFLEX) 3-10 spasm by mouth Luke s 4 MG tablet 17:15: every 8 Med ical 46 (eight) Center hours as needed. Neomycin-Po Neomycin-Po 2018-03 Yes Ayo 4 drops Common lymyxin-HC lymyxin-HC 2-10 [place] into Sp gary 00:00: affected - CHI 00 ear [facility] Neomycin-Po Neomycin-Po 2018-03 No 4{drops TID Neomycin-P lymyxin-HC lymyxin-HC 2-10 _into_a olymyxin-H 3.518723-0 3. 00:00: ffected C 00 _ear} 3.5 Neomycin-Po Neomycin-Po 2018-03 No 4{drops TID Neomycin-P lymyxin-HC lymyxin-HC 2-10 _into_a olymyxin-H 3.523948-5 3.579847-6 00:00: ffected C 00 _ear} 3.5- Neomycin-Po Neomycin-Po 2018-03 No 4{drops TID Neomycin-P lymyxin-HC lymyxin-HC 2-10 _into_a olymyxin-H 3.594780-1 3.589086-5 00:00: ffected C 00 _ear} 3.5- 1 Neomycin-Po Neomycin-Po 2018-03 No 4{drops TID Neomycin-P lymyxin-HC lymyxin-HC 2-10 _into_a olymyxin-H 3.545359-2 3.554821-1 00:00: ffected C 00 _ear} 3.5- Neomycin-Po Neomycin-Po 2018-03 No 4{drops TID Neomycin-P lymyxin-HC lymyxin-HC 2-10 _into_a olymyxin-H 3.511246-1 3.5-26395-8 00:00: ffected C 00 _ear} 3.5- 1 Neomycin-Po Neomycin-Po 2018- No 4{drops TID Neomycin-P lymyxin-HC lymyxin-HC 2-10 _into_a olymyxin-H 3.506013-3 3.512719-1 00:00: ffected C 00 _ear} 3.5- 1 Neomycin-Po Neomycin-Po 2018-03 No 4{drops TID Neomycin-P lymyxin-HC lymyxin-HC 2-10 _into_a olymyxin-H 3.569441-1 3.566325-8 00:00: ffected C 00 _ear} 3.5- 1 Neomycin-Po Neomycin-Po 2018-03 No 4{drops TID Neomycin-P lymyxin-HC lymyxin-HC 2-10 _into_a olymyxin-H 3.561032-6 3.578738-6 00:00: ffected C 00 _ear} 3.5- 1 Neomycin-Po Neomycin-Po 2018-03 No 4{drops TID Neomycin-P lymyxin-HC lymyxin-HC 2-10 _into_a olymyxin-H 3.529391-3 3.529993-9 00:00: ffected C 00 _ear} 3.- 1 Oxycodone Oxycodone 2018-0 Yes Ayo 1 tablet Common HCl HCl 7-16 [place] as needed Spirit 00:00: - CHI 00 [facility] Meclizine Meclizine 2019-0 Yes Ayo 1 tablet Common HCl HCl 4-23 [place] as needed Spirit 00:00: - CHI 00 [facility] Meclizine Meclizine 2018-0 No 1{table QD Meclizine HCl 25 MG HCl 25 MG 4-23 t_as_ne HCl 25 MG 00:00: eded} Meclizine Meclizine 2019-0 No 1{table QD Meclizine [...] Meclizine HCl 25 MG HCl 25 MG - t_as_ne HCl 25 MG 00:00: eded} 00 ELIQUIS 5 Yes 5mg Q.5D 5 mg 2 Method i mg tablet 08-25 (two) st 00:00: times a Hospita day. l ELIQUIS 5 Yes 5mg Q.5D 5 mg 2 Method i mg tablet 08-25 (two) st 00:00: times a Hospita day. l Nexium Nexium Yes Ayo 1 capsule Comm on [facility] Carafate Carafate Yes Ayo 1 TABLET C ommon [facility] Pepto-Bismo Pepto-Bismo Yes Ayo 30 ml as Common l l [place] needed [facility] Zanaflex Zanaflex Yes Ayo 1 tablet C ommon [place] as needed [facility] Prolia Prolia Yes Ayo 60 mg Common [place] [facility] Calcium Calcium Yes Ayo 1 tablet Com mon Groves [facility] Vitamin D-3 Vitamin D-3 Yes Ayo 1 tablet Common [facility] Mupirocin Mupirocin Yes Ayo 1 Com mon [place] applicatio Spirit n to - CHI affected [facility] Spironolact Spironolact Yes Ayo 1 tablet Common one one [facility] Tizanidine Tizanidine Yes Ayo TK 1 T PO Common HCl HCl Groves QD PRN [facility] oxyCODONE oxyCODONE No 1{table QID [...] 68.04 kg height 2022-02-19 11:30:00 64 [in_i] [facility] weight 2022-02-19 11:30:00 145 [lb_av] [facility] temperature 2022-02-19 11:30:00 98 [degF] [facility] bmi 2022-02-19 11:30:00 24.89 kg/m2 [facility] blood pressure 2022-02-19 11:30:00 130 mm[Hg] [facility] - systolic [facility] blood pressure 2022-02-19 11:30:00 72 mm[Hg] [facility] - diastolic [facility] height 2021-10-18 15:20:00 64 [in_i] [facility] weight 2021-10-18 15:20:00 144 [lb_av] [facility] temperature 2021-10-18 15:20:00 98 [degF] [facility] 2021-10-18 15:20:00 24.71 kg/m2 [facility] blood pressure 2021-10-18 15:20:00 132 mm[Hg] [facility] - systolic [facility] blood pressure 2021-10-18 15:20:00 70 mm[Hg] [facility] - diastolic [facility] height 2021-10-18 15:30:00 64 [in_i] [facility] weight 2021-10-18 15:30:00 144 [lb_av] [facility] temperature 2021-10-18 15:30:00 98.0 [degF] [facility] bmi 2021-10-18 15:30:00 24.71 kg/m2 [facility] blood pressure 2021-10-18 15:30:00 132 mm[Hg] [facility] - systolic [facility] blood pressure 2021-10-18 15:30:00 70 mm[Hg] [facility] - diastolic [facility] height 2021-08-16 10:40:00 64 [in_i] [facility] weight 2021-08-16 10:40:00 141 [lb_av] [facility] temperature 2021-08-16 10:40:00 97 [degF] [facility] bmi 2021-08-16 10:40:00 24.2 kg/m2 [facility] blood pressure 2021-08-16 10:40:00 136 mm[Hg] [facility] - systolic [facility] blood pressure 2021-08-16 10:40:00 76 mm[Hg] [facility] - diastolic [facility] HEIGHT 2020-05-31 08:36:00 162.6 cm WEIGHT 2020-05-31 08:36:00 63.1 kg HEIGHT 2020-05-30 12:15:00 165.1 cm WEIGHT 2020-05-30 12:15:00 68.04 kg Procedures This patient has no known procedures. Plan of Care Planned Activity Planned Date Details Comments Source Future Scheduled 2023-01-16 COVID-19 VACCINE (#1) [facility] Test 02:16:24 [code = COVID-19 VACCINE (#1)] Future Scheduled 2023-01-16 Hepatitis C screening [facility] Test 02:16:24 (procedure) [code = 154889545] Future Scheduled 2023-01-16 SHINGLES VACCINES (1 Met [facility] Test 02:16:24 of 2) [code = SHINGLES VACCINES (1 of 2)] Future Scheduled 2023-01-16 RSV VACCINES > 60 YR Met [facility] Test 02:16:24 (1 - 1-dose 60+ series) [code = RSV VACCINES > 60 YR (1 - 1-dose 60+ series)] Future Scheduled 2023-01-16 65+ [facility]CCAL [facility] Test 02:16:24 VACCINE (1 - PCV) [code = 65+ PNEUMOCOCCAL VACCINE (1 - PCV)] Future Scheduled 2023-01-16 INFLUENZA VACCINE (#1) [facility] Test 02:16:24 [code = INFLUENZA VACCINE (#1)] Future Scheduled 2022-12-01 COVID-19 VACCINE (#1) [facility] Hospital Test 08:46:10 [code = COVID-19 VACCINE (#1)] Future Scheduled 2022-12-01 Hepatitis C screening [facility] Hospital Test 08:46:10 (procedure) [code = 679395605] Future Scheduled 2022-12-01 SHINGLES VACCINES (1 Met [facility] Test 08:46:10 of 2) [code = SHINGLES VACCINES (1 of 2)] Future Scheduled 2022-12-01 65+ PNEUMOCOCCAL [facility] Test 08:46:10 VACCINE (1 - PCV) [code = 65+ PNEUMOCOCCAL VACCINE (1 - PCV)] Future Scheduled 2022-12-01 INFLUENZA VACCINE (#1) [facility] Test 08:46:10 [code = INFLUENZA VACCINE (#1)] Future Scheduled 2022-11-29 Influenza Vaccine (#1[facility] Test 00:00:00 [code = Influenza Medical Ce nter Vaccine (#1)] Future Scheduled 2022-11-29 Influenza Vaccine (#1) [facility] Test 00:00:00 [code = Influenza Medical Ce nter Vaccine (#1)] Future Scheduled 2022-03-[address] [facility] Test 00:00:00 (12+) [code = Medical Center DEPRESSION SCREENING (12+)] Future Scheduled 2022-03-31 FALLS RISK SCREENING [facility] Test 00:00:00 [code = FALLS RISK Medical C enter SCREENING] Future Scheduled 2022-03-[address] [...] Cessation Counseling and Screening (12+)] Future Scheduled 2021-05-[address] [facility] Test 00:00:00 Counseling and Medical Cente r Screening (12+) [code = Tobacco Cessation Counseling and Screening (12+)] Future Scheduled 2009-09-[address] [facility] Test 00:00:00 WELLNESS (YEAR 2 or Medical Center FIRST YEAR if no IPPE) [code = MEDICARE ANNUAL WELLNESS (YEAR 2 or FIRST YEAR if no IPPE)] Future Scheduled 2009-09-[address] [facility] Test 00:00:00 WELLNESS (YEAR 2 or Medical Center FIRST YEAR if no IPPE) [code = MEDICARE ANNUAL WELLNESS (YEAR 2 or FIRST YEAR if no IPPE)] Future Scheduled 2008-10-27 PNEUMOCOCCAL 65+ Y[facility] Test 00:00:00 (1 - PCV) [code = Medical Ce nter PNEUMOCOCCAL 65+ YRS (1 - PCV)] Future Scheduled 2008-10-27 PNEUMOCOCCAL 65+ YRS [facility] Test 00:00:00 (1 - PCV) [code = Medical Ce nter PNEUMOCOCCAL 65+ YRS (1 - PCV)] Future Scheduled 1993-10-27 SHINGLES VACCINES ([address] [facility] Test 00:00:00 of 2) [code = SHINGLES Medic al Center VACCINES (1 of 2)] Future Scheduled 1993-10-27 SHINGLES VACCINES ([address] [facility] Test 00:00:00 of 2) [code = SHINGLES Medic al Center VACCINES (1 of 2)] Future Scheduled 1962-10-27 DTAP/TDAP/TD VACCINES [facility] Test 00:00:00 (1 - Tdap) [code = Medical C enter DTAP/TDAP/TD VACCINES (1 - Tdap)] Future Scheduled 1962-10-27 DTAP/TDAP/TD VACCINES [facility] Test 00:00:00 (1 - Tdap) [code = Medical C enter DTAP/TDAP/TD VACCINES (1 - Tdap)] Future Scheduled 1961-10-27 HEPATITIS C SCREENING [facility] Test 00:00:00 [code = HEPATITIS C Medical Center SCREENING] Future Scheduled 1961-10-27 HEPATITIS C SCREENING [facility] Test 00:00:00 [code = HEPATITIS C Medical Center SCREENING] Future Scheduled 1944-04-29 COVID-19 VACCINE (#1) [facility] Test 00:00:00 [code = COVID-[address] VACCINE (#1)] Future Scheduled 1946-04-29 COVID-19 VACCINE (#1) [facility] Test 00:00:00 [code = COVID-[address] VACCINE (#1)] Future Scheduled 1945 DXA SCAN [code = DXA [facility] Test 00:00:00 SCAN] [facility] Future Scheduled 1945 DXA SCAN [code = DXA [facility] Test 00:00:00 SCAN] [facility] Encounters Start End Encounter Admission Attending Care Care Encounter Source Date/Time Date/Time Type Type Clinicians Facility Department ID 2021-08-16 Outpatient eGrmain CASSIE [facility] [id number] Common 11:01:01 Critical Access Hospital [facility] 2021-04-26 Outpatient 3 [id number] ENCSL REF [id number] [facility] 10:42:36 [id number] [facility] [place] 2021-04-26 [facility] [id number] [facility] 10:30:17 Erika 0831 [facility] [place] 2021-04-26 Outpatient 3 [id number] ENCPL REF [id number] [facility] 10:29:11 0828 [facility] [place] 2021-04-26 Outpatient 3 [id number] ENCSL REF [id number] [facility] 10:29:09 [id number] [facility] [place] 2021-04-26 Outpatient MONTRELL GLEZ ENCKEELEY ENCCLR [id number] ENCCLR 10:00:14 ADMISSION KRISTIN 2021-04-26 Outpatient 3 [id number] ENCPL REF [id number] [facility] 09:54:16 0529 [facility] [place] 2021-04-26 Outpatient 3 [id number] ENCPL REF [id number] [facility] 09:53:47 0528 [facility] [place] 2021-04-25 Outpatient CASSIE Groves [facility] [id number] Common 13:28:06 Ayo [address]1029 [facility] 2021-04-25 Outpatient [place], [facility] [id number] Common 13:27:26 Ayo [address] [facility] 2021-04-25 Outpatient [place], [facility] Common 13:21:47 Ayo [address]02 [facility] 2021-04-25 Outpatient [place], [facility] [id number] Common 12:53:49 Ayo 90672 [facility] 2021-04-25 Outpatient [place], [facility] Common 12:22:12 Ayo 94609 [facility] 2021-04-25 Outpatient [place], [facility] Common 12:21:24 Ayo 82361 [facility] 2021-04-25 Outpatient [place], [facility] [id number] Common 12:06:58 Ayo 99067 [facility] 2021-04-25 Outpatient [place], [facility] Common 11:32:21 Ayo [address]7445 [facility] 2021-04-25 Outpatient [place], [facility] Common 11:31:45 Ayo 65583 [facility] 2021-04-25 Outpatient [place], [facility] [id number] Common 11:18:56 Ayo 49475 [facility] 2021-04-25 Outpatient [place], [facility] [id number] Common 11:09:00 Ayo 49662 [facility] 2021-01-06 Outpatient RABAGO, [facility] Surgery [id number] [facility] 05:55:24 TAYLOR 2021-01-03 Inpatient RABAGO, [facility] Surgery [id number] SLE 04:43:33 TAYLOR 2019-11-23 Inpatient ER LEE [facility] Med [id number] SLEH 11:02:00 FELICIA 2022-02-28 2022-02-28 (TEL) STLMLC STLMLC [id number] Co mmon 00:00:00 00:00:00 [facility] 2022-02-19 2022-02-19 OFFICE STLMLC STLMLC [id number] Co mmon 00:00:00 00:00:00 VISIT [facility] PT - CHI LEVEL 4 [facility] 2021-10-23 2021-10-23 (WEB) STLMLC STLMLC [id number] Co mmon 00:00:00 00:00:00 [facility] 2021-10-23 2021-10-23 (WEB) STLMLC STLMLC [id number] Co mmon 00:00:00 00:00:00 [facility] 2021-10-18 2021-10-18 OFFICE STLMLC STLMLC [id number] Co mmon 00:00:00 00:00:00 VISIT [facility] PT - CHI LEVEL [address] [place] [address] 2021-10-18 2021-10-18 SUB ANNUAL STLMLC STLMLC [id number] Common 00:00:00 00:00:00 MCR [facility] WELLNESS - CHI VISIT [facility] 2021-09-06 2021-09-06 (TEL) STLMLC STLMLC [id number] Co mmon 00:00:00 00:00:00 [facility] 2021-08-22 2021-08-22 (TEL) STLMLC STLMLC [id number] Co mmon 00:00:00 00:00:00 [facility] 2021-08-22 2021-08-22 (TEL) STLMLC STLMLC [id number] Co mmon 00:00:00 00:00:00 [facility] 2021-08-22 2021-08-22 (WEB) STLMLC STLMLC [id number] Co mmon 00:00:00 00:00:00 [facility] 2021-08-16 2021-08-16 OFFICE STLMLC STLMLC [id number] Co mmon 00:00:00 00:00:00 VISIT [facility] PT - CHI LEVEL 4 [facility] 2021-08-16 2021-08-16 (TEL) STLMLC STLMLC [id number] Co mmon 00:00:00 00:00:00 [facility] 2021-07-06 2021-07-06 (TEL) STLMLC STLMLC [id number] Co mmon 00:00:00 00:00:00 [facility] 2021-06-20 2021-06-20 (TEL) STLMLC STLMLC [id number] Co mmon 00:00:00 00:00:00 [facility] 2021-05-10 2021-05-10 Outpatient ÉPREZ, [facility] [id number] [address] 00:00:00 00:00:00 DARYL [address] 2020-12-12 2020-12-12 Outpatient PÉREZ, [facility] [id number] [address] 00:00:00 00:00:00 DARYL [address] 2020-11-20 2020-11-20 (TEL) STLMLC STLMLC [id number] Co mmon 00:00:00 00:00:00 [facility] 2020-10-16 2020-10-16 Outpatient STLMLC STLMLC [id number] Common 00:00:00 00:00:00 [facility] 2020-10-16 2020-10-16 Outpatient STLMLC STLMLC [id number] Common 00:00:00 00:00:00 [facility] 2020-10-05 2020-10-05 Outpatient PÉREZ, [facility] [id number] 00:00:00 00:00:00 DARYL [address] 2020-10-03 2020-10-03 Outpatient STLMLC STLMLC [id number] Common 00:00:00 00:00:00 [facility] 2020-09-27 2020-09-27 Outpatient STLMLC STLMLC [id number] Common 00:00:00 00:00:00 [facility] 2020-09-14 2020-09-14 Outpatient STLMLC STLMLC [id number] Common 00:00:00 00:00:00 [facility] 2020-07-17 2020-07-17 Outpatient STLMLC STLMLC [id number] Common 00:00:00 00:00:00 [facility] 2020-07-10 2020-07-10 Outpatient PÉREZ, [facility] [id number] [address] 00:00:00 00:00:00 DARYL [address] 2020-06-12 2020-06-12 Outpatient PÉREZ, [facility] [id number] 00:00:00 00:00:00 DARYL [address] 2020-05-30 2020-05-30 Outpatient [facility] [id number] [facility] 00:00:00 00:00:00 2020-05-30 2020-05-30 Outpatient [facility] [id number] [facility] 00:00:00 00:00:00 2020-04-20 2020-04-20 Outpatient PÉREZ, [facility] [id number] [address] [place] [address] 00:00:00 00:00:00 DARYL [address] 2020-04-17 2020-04-17 Outpatient STLMLC STLMLC [id number] Common 00:00:00 00:00:00 [facility] 2020-04-17 2020-04-17 Outpatient STLMLC STLMLC [id number] Common 00:00:00 00:00:00 [facility] 2020-04-17 2020-04-17 Outpatient STLMLC STLMLC [id number] Common 00:00:00 00:00:00 [facility] 2020-02-21 2020-02-21 Outpatient STLMLC STLMLC [id number] Common 00:00:00 00:00:00 [facility] 2020-02-21 2020-02-21 Outpatient STLMLC STLMLC [id number] Common 00:00:00 00:00:00 [facility] 2020-02-10 2020-02-10 Outpatient PÉREZ, [facility] [id number] [address] 00:00:00 00:00:00 DARYL [address] 2019-12-27 2019-12-27 Outpatient PÉREZ, [facility] [id number] 00:00:00 00:00:00 DARYL [address] 2019-10-21 2019-10-21 [facility] [id number] Common 15:00:00 15:00:[address] [facility] 2019-10-14 2019-10-14 [facility] [id number] Common 12:21:00 12:21:[address] [facility] 2019-10-08 2019-10-08 Outpatient BRYSON MOTA [facility] [id number] [place] 00:00:00 00:00:[address] 2019-10-08 2019-10-08 Outpatient BRYSON MOTA [facility] [id number] [place] 00:00:00 00:00:[address] 2019-09-16 2019-09-16 Outpatient ELISA [facility] [id number] 00:00:00 00:00:00 DARYL [address] 2019-08-20 2019-08-27 Inpatient NATALIE, [facility] [id number] [address] 00:00:00 00:00:00 JHOANA [address] 2019-08-05 2019-08-05 [facility] [id number] Common 14:58:00 14:58:[address] [facility] 2019-07-22 2019-07-22 [facility] [id number] Common 12:29:00 12:29:[address] [facility] 2019-07-19 2019-07-19 Outpatient ELISA, [facility] [id number] 00:00:00 00:00:00 DARYL [address] 2019-05-28 2019-05-28 [facility] [id number] Common 08:12:00 08:12:[address] [facility] 2019-05-25 2019-05-25 Outpatient ELISA [facility] [id number] 00:00:00 00:00:00 DARYL lim 2019-05-20 2019-05-20 [facility] [id number] Common 09:00:00 09:00:[address] [facility] 2019-04-28 2019-04-28 [facility] [id number] Common 16:26:00 16:26:[address] [facility] 2019-03-09 2019-03-09 [facility] [id number] Common 16:45:00 16:45:[address] [facility] 2019-03-03 2019-03-03 [facility] [id number] Common 15:38:00 15:38:[address] [facility] 2019-03-03 2019-03-03 [facility] [id number] Common 13:00:00 13:00:[address] [facility] 2019-01-27 2019-01-27 [facility] [id number] Common 11:24:00 11:24:[address] [facility] 2019-01-07 2019-01-07 [facility] [id number] Common 11:56:00 11:56:[address] [facility] 2019-01-04 2019-01-04 [facility] [id number] Common 16:00:00 16:00:[address] [facility] 2018-12-23 2018-12-23 [facility] [id number] Common 14:16:00 14:16:[address] [facility] 2018-12-17 2018-12-17 [facility] [id number] Common 11:29:00 11:29:[address] [facility] 2018-12-14 2018-12-14 [facility] [id number] Common 16:12:00 16:12:[address] [facility] 2018-12-02 2018-12-02 [facility] [id number] Common 14:45:00 14:45:[address] [facility] 2018-11-23 2018-11-23 [facility] [id number] Common 10:51:00 10:51:[address] [facility] 2018-10-20 2018-10-20 [facility] [id number] Common 15:40:00 15:40:[address] [facility] 2018-08-11 2018-08-11 [facility] [id number] Common 08:59:00 08:59:[address] [facility] 2018-08-10 2018-08-10 [facility] [id number] Common 15:55:00 15:55:[address] [facility] 2018-07-29 2018-07-29 [facility] [id number] Common 09:31:00 09:31:[address] [facility] 2018-07-21 2018-07-21 [facility] [id number] Common 11:45:00 11:45:[address] [facility] 2018-07-14 2018-07-14 [facility] [id number] Common 13:31:00 13:31:[address] [facility] 2018-07-01 2018-07-01 [facility] [id number] Common 14:10:00 14:10:[address] [facility] 2018-07-01 2018-07-01 [facility] [id number] Common 11:45:00 11:45:[address] [facility] 2018-06-04 2018-06-04 [facility] [id number] Common 11:30:00 11:30:[address] [facility] 2018-03-18 2018-03-18 [facility] [id number] Common 14:08:00 14:08:[address] [facility] 2018-01-12 2018-01-12 [facility] [id number] Common 08:45:00 08:45:[address] [facility] 2018-01-05 2018-01-05 [facility] [id number] Common 14:00:00 14:00:[address] [facility] Results Test Description Test Time Test Comments [...] code = 994) seen FUNGUS CULTURE + [id number] 16:47:00 Test Item Value Reference Range Interpretation Comments CULTURE (BEAKER) (test No fungus isolated in code = 1095) 28 days FUNGUS SMEAR (BEAKER) No fungi seen (test code = 1406) FUNGUS CULTURE + [id number] 16:47:00 Test Item Value Reference Range Interpretation Comments CULTURE (BEAKER) (test No fungus isolated in code = 1095) 28 days FUNGUS SMEAR (BEAKER) No fungi seen (test code = 1406) ANAEROBIC [id number] 19:40:00 Test Item Value Reference Range Interpretation Comments CULTURE (BEAKER) (test No anaerobes isolated code = 1095) ANAEROBIC [id number] 19:40:00 Test Item Value Reference Range Interpretation Comments CULTURE (BEAKER) (test No anaerobes isolated code = 1095) BASIC METABOLIC [id number] 14:59:00 Test Item Value Reference Range Interpretation [...] S NOT APPLICABLE FOR DIALYSIS PATIEN TS. Crystal Gazer ID - BSOperator ID - BSCBC W/PLT [...] PERCENT (BEAKER) (test code = 2801) SARS-COV2/RT-PCR ([facility])2020-06-06 10:31:00 Test Item Value Reference Range Interpretation Comments SARS-COV2/RT-PCR (test Negative Not Detected, Negative, code = 3057339) See external report for linked test SARS-COV-2 PERFORMING LAB [facility] (test code = 4600409) Negative result for this test determines that [...] of the Act.Fact Sheet for Healthcare Prov iders:https://www.[employer]/sites/default/files/product/documents/Fact_Sheet_HC _Npqulshxn_Tsyd_XEBX-GkW-2.pdfFact Sheet for Healthcare Patients:https://www.[employer]/sites/default/files/product/docume nts/Abnb_Yxvtd_Ugavyaha_Boqa_WWNJ-YyZ-7.pdfPerforming Laboratory:[facility], [place] [address]RPENAVBMRJ OBTAINED CULTURE + GRAM [id number] 09:02:00 Test Item Value Reference Range Interpretation Comments CULTURE (BEAKER) A From Broth Only (test code = Streptococcus 1095) parasanguinis GRAM STAIN 1+ WBCs RESULT (BEAKER) (test code = 1123) GRAM STAIN No organisms seen RESULT (BEAKER) (test code = 026306) SURGICALLY OBTAINED CULTURE + GRAM [id number] 09:51:00 Test Item Value Reference Range Interpretation Comments CULTURE (BEAKER) (test code No growth = 1095) GRAM STAIN RESULT (BEAKER) <1+ WBCs (test code = 1123) GRAM STAIN RESULT (BEAKER) No organisms seen (test code = 63511) BASIC METABOLIC [id number] 07:42:00 Test Item Value Reference Range Interpretation [...] S NOT APPLICABLE FOR DIALYSIS PATIEN TS. Crystal Gazer ID - EDASICBC (HEMOGRAM ONLY)2020-06-03 06:52:00 Test [...] (BEAKER) (test code = 413) BASIC METABOLIC [id number] 06:07:00 Test Item Value Reference Range Interpretation [...] S NOT APPLICABLE FOR DIALYSIS PATIEN TS. Crystal Gazer ID - EDASICBC (HEMOGRAM ONLY)2020-06-02 05:47:00 Test [...] 0-0 (BEAKER) (test code = 413) SPIN/CONCENTRATION [id number] 13:46:00 Test Item Value Reference Range Interpretation Comments CONCENTRATION CHARGED (BEAKER) (test Done code = 2657) SPIN/CONCENTRATION [id number] 13:45:00 Test Item Value Reference Range Interpretation Comments CONCENTRATION CHARGED (BEAKER) (test Done code = 2657) [id number] 09:53:00 Test Item Value Reference Range Interpretation Comments FERRITIN (BEAKER) (test code = 66.41 ng/mL 5.00-275.00 361) Crystal Gazer ID - ADMINHEMOGLOBIN [id number] 09:00:00 Test Item Value Reference Range Interpretation Comments HEMOGLOBIN A1C (BEAKER) (test code = 5.4 % 4.3-6.1 368) [id number] 06:43:00 Test Item Value Reference Range Interpretation Comments MAGNESIUM (BEAKER) (test code = 1.7 mg/dL 1.6-2.6 627) Crystal Gazer ID - [id number] 06:43:00 Test Item Value Reference Range Interpretation Comments PHOSPHORUS (BEAKER) (test code = 2.9 mg/dL 2.3-4.7 604) Crystal Gazer ID - ADMINCALCIUM, [id number] 05:33:00 Test Item Value Reference Range Interpretation [...] % 20-55 L (test code = 2590) Crystal Gazer ID - BSHEMOGLOBIN AND [id number] 19:36:00 Test Item Value Reference Range Interpretation Comments HEMOGLOBIN (BEAKER) (test code = 11.6 GM/DL 11.2-15.7 410) HEMATOCRIT (BEAKER) (test code = 34.8 % 34.1-44.9 411) Crystal Gazer ID - 6000FL, FLUORO, NON-SPECIFIC, UP TO 1 [id number] 12:45:12 Reason for exam:->Repair NOnunion/Malunion Left Femur [facility] : 1945 Sex: FFluoroscopic unit utilized for a procedure performed in the OR. No interpretation was requested. Refer to theoperative report for findings. Refer to PACS for patient radiation dose information.BASIC METABOLIC [id number] 09:36:00 Test Item Value Reference Range Interpretation [...] S NOT APPLICABLE FOR DIALYSIS PATIEN TS. Crystal Gazer ID - ROSIANGCBC (HEMOGRAM ONLY)2020-05-31 09:24:00 Test [...] 0-0 (BEAKER) (test code = 413) SARS-COV2/RT-PCR ([facility])2020-05-31 02:16:00 Test Item Value Reference Range Interpretation Comments SARS-COV2/RT-PCR (test Negative Not Detected, Negative, code = 7993659) See external report for linked test SARS-COV-2 PERFORMING LAB [facility] (test code = 6387728) Negative result for this test determines that [...] the Hughes SARS-CoV-2 assay.Fact Sheet for Healthcare Providers:https://www.[employer].hughes/vickie/RT_SAR L-PiJ-8_SHC_Hoik_Sunjx_21-497409.pdfFact Sheet for Healthcare Patients:https://www.molecular.hughes/s al/GA_MHBW-BzI-6_Lcprmlr_Trcs_Lpdqb_UP_69-158042V1.pdfPerforming Laboratory:[facility] [place] [address] [place] [address] BASIC METABOLIC [id number] 16:20:00 Test Item Value Reference Range Interpretation [...] S NOT APPLICABLE FOR DIALYSIS PATIEN TS. Crystal Gazer ID - BSBASIC METABOLIC [id number] 06:29:00 Test Item Value Reference Range Interpretation [...] S NOT APPLICABLE FOR DIALYSIS PATIEN TS. Crystal Gazer ID - PIAYA LCBC (HEMOGRAM ONLY)2019-11-29 05:49:00 [...] (BEAKER) (test code = 413) HEMOGLOBIN AND [id number] 17:06:00 Test Item Value Reference Range Interpretation Comments HEMOGLOBIN (BEAKER) (test code = 9.0 GM/DL 11.2-15.7 L 410) HEMATOCRIT (BEAKER) (test code = 29.5 % 34.1-44.9 L 411) Crystal Gazer ID - 6000RAD, CHEST, 1 VIEW, NON [id number] 16:34:00Reason for exam:->SOBShould this be performed at [...] radiograph should be considered. Signed: Yan Kaye Verified Date/Time: 11/28/2019 16:34:26 Reading Location: [facility] C013Y CT Body Reading Room RAD, FEMUR, MIN. 2 VIEWS, [id number] 16:29:00Reason for exam:->right leg pain, h/o R [...] distal right lower extremity are unremarkable. IMPRESSION: 1.No acute fractures or bone abnormalities. Surgical hardware in the right femur and a right knee prosthesis as described above. Signed: Taylor Alex Verified Date/Time: 11/28/2019 16:29:20 Reading Location: [facility] C013T Transitional Reading Room BASIC METABOLIC [id number] 05:49:00 Test Item Value Reference Range Interpretation [...] S NOT APPLICABLE FOR DIALYSIS PATIEN TS. Crystal Gazer ID - PIAYA LSpecimen slightly ictericCBC (HEMOGRAM [...] (BEAKER) (test code = 413) HEMOGLOBIN AND [id number] 21:43:00 Test Item Value Reference Range Interpretation Comments HEMOGLOBIN (BEAKER) (test code = 9.1 GM/DL 11.2-15.7 L 410) HEMATOCRIT (BEAKER) (test code = 29.2 % 34.1-44.9 L 411) Crystal Gazer ID - 6000CBC (HEMOGRAM ONLY)2019-11-27 07:28:00 Test [...] = 413) RAD, CHEST, 1 VIEW, NON [id number] 05:41:00Reason for exam:->postop feverShould this be performed [...] no pleural effusion or pneumothorax. Signed: Michael Jonesort Verified Date/Time: 11/27/2019 05:41:21 HEMOGLOBIN AND [id number] 22:51:00 Test Item Value Reference Range Interpretation Comments HEMOGLOBIN (BEAKER) (test code = 7.2 GM/DL 11.2-15.7 L 410) HEMATOCRIT (BEAKER) (test code = 23.7 % 34.1-44.9 L 411) Crystal Gazer ID - 6000URINALYSIS W/ REFLEX URINE [id number] 22:25:00 Test Item Value Reference Range Interpretation [...] = 1521) SOURCE(BEAKER) (test code = 2795) Crystal Gazer ID - [auto]Crystal Gazer ID - techCBC (HEMOGRAM ONLY)2019-11-26 05:16:00 Test [...] 98 mg/dL 63-484 (test code = 639) Crystal Gazer ID - [id number] 17:24:00 Test Item Value Reference Range Interpretation Comments FERRITIN (BEAKER) (test code = 27.41 ng/mL 5.00-275.00 361) Crystal Gazer ID - BSVITAMIN B12 AND [id number] 17:24:00 Test Item Value Reference Range Interpretation Comments VITAMIN B12 (BEAKER) (test code = 409 pg/mL 213-816 774) FOLATE (BEAKER) (test code = 362) 7.60 ng/mL >=7.00 Crystal Gazer ID - BSIRON, TIBC, % SAT. (WITHOUT FERRITIN)2019-11-25 16:50:00 Test Item Value Reference Range Interpretation Comments IRON (BEAKER) (test code = 547) 13.0 ug/dL 40.0-160.0 L TOTAL IRON BINDING CAPACITY 306 ug/dL 250-450 (BEAKER) (test code = 769) IRON % SATURATION (2) (BEAKER) 4 % 20-55 L (test code = 2590) Crystal Gazer ID - BSHEMOGLOBIN AND [id number] 13:28:00 Test Item Value Reference Range Interpretation Comments HEMOGLOBIN (BEAKER) (test code = 6.1 GM/DL 11.2-15.7 L 410) HEMATOCRIT (BEAKER) (test code = 20.4 % 34.1-44.9 L 411) Crystal Gazer ID - 6000BASIC METABOLIC [id number] 06:11:00 Test Item Value Reference Range Interpretation [...] S NOT APPLICABLE FOR DIALYSIS PATIEN TS. Crystal Gazer ID - NTPCBC (HEMOGRAM ONLY)2019-11-25 05:48:00 Test [...] 413) FL, FLUORO, NON-SPECIFIC, UP TO 1 [id number] 16:48:31Reason for exam:- >left femur fractureFluoroscopic unit utilized for a procedure performed in the OR. No interpretation was requested. Refer to the operative report for findings. Refer to PACS for patient radiation dose information.SARS-COV2/RT-PCR ([facility])2019-11-24 13:32:00 Test Item Value Reference Range Interpretation Comments SARS-COV2/RT-PCR (test Negative Not Detected, Negative, code = 9349596) See external report for linked test SARS-COV-2 PERFORMING LAB [facility] (test code = 8214748) Negative result for this test determines that [...] of the Act.Fact Sheet for Healthcare Prov iders:https://www.[employer]/sites/default/files/product/documents/Fact_Sheet_HC _Oyxnrpjsk_Iwus_KFCB-TiH-6.pdfFact Sheet for Healthcare Patients:https://www.[employer]/sites/default/files/product/docume nts/Uclj_Ruloz_Fsntgrss_Pkmm_OYLL-OlN-9.pdfPerforming Laboratory:[facility], [place] [address]QYOBEKA D, 25-HYDROXY 2019-11-24 05:19:00 Test Item Value Reference Range Interpretation Comments VITAMIN D 25-OH (BEAKER) (test 25.5 ng/mL 6.6-49.9 code = 2764) Effective 01/08/2017: Reference Range ChangeNew: 6.6-49.9 ng/mL Previous: 13.0- 47.8 ng/mLRecommendedVitamin D Target Range: 30.0-40.0 ng/mLOperator ID - PIAYA LBASIC METABOLIC [id number] 05:16:00 Test Item Value Reference Range Interpretation [...] S NOT APPLICABLE FOR DIALYSIS PATIEN TS. Crystal Gazer ID - EDASICBC (HEMOGRAM ONLY)2019-11-24 04:48:00 Test [...] = 413) RAD, FEMUR, MIN. 2 VIEWS, [id number] 18:43:00Reason for exam:->hip fracture, eval distal extentFINAL [...] to the patient on lateral. Signed: Audie Francoeport Verified Date/Time: 11/23/2019 18:43:46 Reading Location: [address] Transitional Reading Room BASIC METABOLIC [id number] 12:57:00 Test Item Value Reference Range Interpretation [...] S NOT APPLICABLE FOR DIALYSIS PATIEN TS. Crystal Gazer ID - NTPPROTHROMBIN [id number] 12:45:00 Test Item Value Reference Range Interpretation [...] mechanical heart valves.CBC W/PLT COUNT & AUTO [id number] 12:42:00 Test Item Value Reference Range Interpretation [...] in Respiratory specimen by MARY with probe [id number] 11:18:57 Test Item Value Reference Range Interpretation Comments SARS coronavirus 2 RNA Not detected Not-Detected [Presence] in Respiratory specimen by MARY with probe detection (test code = 39999-0) BERNADINE MAY coronavirus 2 RNA [Presence] in Respiratory specimen by MARY with probe [id number] 13:06:05 Test Item Value Reference Range Interpretation Comments SARS coronavirus 2 RNA Not detected Not-Detected [Presence] in Respiratory specimen by MARY with probe detection (test code = 79128-4) BERNADINE VENEGAS, KYPHOPLASTY, LUMBAR, [id number] 08:42:00What level(s) should be performed->L4-5Reason for exam:->COMPRESSION [...] dose reported as (Ka,r): 619mGy Signed: Driss Dominiqueeport Verified Date/Time: 12/11/2016 08:42:31 Reading Location: [facility] P048 Angio Body Reading Room BUN AND [id number] 06:18:00 Test Item Value Reference Range Interpretation [...] (BEAKER) (test code = 413) BASIC METABOLIC [id number] 06:49:00 Test Item Value Reference Range Interpretation [...] NOT APPLICABLE FOR DIALYSIS PATIEN TS. PROTHROMBIN [id number] 06:31:00 Test Item Value Reference Range Interpretation Comments PROTIME (BEAKER) (test code = 13.4 seconds 11.7-14.7 759) INR (BEAKER) (test code = 370) 1.0 <=5.9 RECOMMENDED COUMADIN/WARFARIN INR THERAPY RANGESSTANDARD DOSE: 2.0 - 3.0 Includes: PROPHYLAXIS for venous thrombosis, systemic embolization; TREATMENT for venous thrombosis and/or pulmonary embolus.HIGH RISK: Target INR is 2.5-3.5 for patients with mechanical heart valves.[id number] 06:31:00 Test Item Value Reference Range Interpretation Comments PARTIAL THROMBOPLASTIN TIME 26.2 seconds 22.5-36.0 (BEAKER) (test code = 760) CBC W/PLT COUNT & AUTO [id number] 06:23:00 Test Item Value Reference Range Interpretation [...] code = 2801) MYOCARD IMAGING, MULTI, PHARM, [id number] 14:11:00Please do D SPECT camera for this patient Reason for exam:->Chest PainFINAL REPORT PROCEDURE: Rest/Stress MYOCARDIAL PERFUSION SPECT with regadenoson\\XA9\\ CPT CODE: 82312 INDICATION: Chest pain, acute, nonspecific, low probability CAD HISTORY: Cardiac risk factors: Hypertension. Other cardiovascular history: No reported CAD. Recent cardiac symptoms:Chest pain. Current cardiovascular-related medications: Norvasc, atenolol. PROTOCOL: 10.8 mCi of Tc-99m sestamibi was injected iv at rest, and SPECT (tomographic) images were obtained. Also, 30.7 mCi of Tc-99m sestamibi was injected iv at expected peak pharmacologic effect, and gated SPECT images wereobtained. PRELIMINARY STRESS TEST DATA FROM NONINVASIVE CARDIOLOGY: Pharmacologic stress was by 10-second iv infusion of 0.4 mg of regadenoson. Radiotracer was injected 30 seconds after start of stress. Heart rate was 76 beats/min at rest and 107 beats/min (72 % of MPHR) at tracer injection. BP was 141/71 mmHg at rest and 145/47 mmHg at tracer injection. Stress was stopped for predetermined endpoint.The patient experienced dyspnea; treatment was not required. Preliminary ECG evaluation revealed sinus rhythm at rest and no ischemic changes with stress. (Final ECG interpretation and other stress andmonitoring data are reported separately by Cardiology.) IMAGING [...] Normal extracardiac tracer distribution. 6. No previous [facility] study for comparison. NONINVASIVE RISK STRATIFICATION: The above findings are considered low risk (<1% annual mortality rate) based on the following criterion:- Normal or small myocardial perfusion defect at rest or with stress(JACC. 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 CBC W/PLT COUNT & AUTO [id number] 05:31:00 Test Item Value Reference Range Interpretation [...] PERCENT (BEAKER) (test code = 2801) TROPONIN [id number] 01:13:00 Test Item Value Reference Range Interpretation [...] acidosis, acute neurological disease, and persistent tachyarrhythmia.TROPONIN [id number] 19:15:00 Test Item Value Reference Range Interpretation [...] acidosis, acute neurological disease, and persistent tachyarrhythmia.TROPONIN [id number] 12:09:00 Test Item Value Reference Range Interpretation [...] failure, acidosis, acute neurological disease, and persistent tachyarrhythmia.[id number] 06:18:00 Test Item Value Reference Range Interpretation Comments MAGNESIUM (BEAKER) (test code = 1.7 mg/dL 1.6-2.6 627) BASIC METABOLIC [id number] 06:18:00 Test Item Value Reference Range Interpretation [...] PATIEN TS. CBC W/PLT COUNT & AUTO [id number] 05:54:00 Test Item Value Reference Range Interpretation [...] 0-1 PERCENT (BEAKER) (test code = 2801) [id number] 10:28:00 Test Item Value Reference Range Interpretation Comments MAGNESIUM (BEAKER) (test code = 1.6 mg/dL 1.6-2.6 627) BASIC METABOLIC [id number] 10:28:00 Test Item Value Reference Range Interpretation [...] NOT APPLICABLE FOR DIALYSIS PATIEN TS. LIPID [id number] 10:28:00 Test Item Value Reference Range Interpretation [...] Borderline 130-159 High 160-189 Very High >=[id number] 10:22:00 Test Item Value Reference Range Interpretation Comments PROTIME (BEAKER) (test code = 14.2 seconds 11.7-14.7 759) INR (BEAKER) (test code = 370) 1.1 <=5.9 RECOMMENDED COUMADIN/WARFARIN INR THERAPY RANGESSTANDARD DOSE: 2.0 - 3.0 Includes: PROPHYLAXIS for venous thrombosis, systemic embolization; TREATMENT for venous thrombosis and/or pulmonary embolus.HIGH RISK: Target INR is 2.5-3.5 for patients with mechanical heart valves.CBC W/PLT COUNT & AUTO [id number] 10:11:00 Test Item Value Reference Range Interpretation [...] % 0-1 PERCENT (BEAKER) (test code = 0490) Sacrum And CoccyxSacrum And Coccyx
[2023-01-16 04:54] LABS: Absolute Lymphocytes (CBC) 1.2 K/uL (0.7-4.9); Hematocrit 25.5 % (36.0-45.0); Lymphocytes % 12.5 % (15.3-44.8); MCV 62.7 fL (80-100); MPV 7.8 fL (7.6-11.3); Platelets 292 thou/uL (152-406); RBC Red Blood Cell Count 4.07 M/uL (3.86-4.86)
[2023-01-16] MEDS ORDERED: HYDROCODONE/APAP 5/325 MG TAB ONE (05:12)
[2023-01-16 05:13] LABS: Potassium 3.7 mEq/L (3.5-5.1); Troponin High Sensitivity 7.4 pg/mL (<58.9)
--- NOTE | 2023-01-16 05:30 | ER ---
Nurse's Notes [facility] Name: Arianne Ambriz Age: 77 yrs Sex: Female : 1945 Arrival Date: 01/16/2023 Time: 04:35 Bed 7 Private MD: Diagnosis: Low back pain;Chest pain, unspecified Presentation: 01/16 04:53 Chief complaint: Patient states: chest pain, with pressure that has been gradually been jw7 getting worse since 01/04/23; and coughing with phlegm. Coronavirus screen: At this time, the client does not indicate any symptoms associated with coronavirus-19. Ebola Screen: No symptoms or risks identified at this time. Initial Sepsis Screen: Does the patient meet any 2 criteria? No. Patient's initial sepsis screen is negative. Does the patient have a suspected source of infection? No. Patient's initial sepsis screen is negative. Risk Assessment: Do you want to hurt yourself or someone else? Patient reports no desire to harm self or others. Onset of symptoms was January 04, 2023. 04:53 Method Of Arrival: EMS: [facility] 7 04:53 Acuity: THADDEUS 2 jw7 Triage Assessment: 05:04 General: Appears in no apparent distress. uncomfortable, Behavior is calm, cooperative. jw7 Pain: Complains of pain in chest Pain does not radiate. Pain currently is 7 out of 10 on a pain scale. Quality of pain is described as pressure, Pain began 2-3 days ago. Is Alleviated by repositioning, Noted to be guarding, resistant to movement. EENT: No deficits noted. No signs and/or symptoms were reported regarding the EENT system. EENT:. Neuro: [place] Agitation-Sedation Scale (RASS): 0 - Alert and Calm. Cardiovascular: Heart tones S1 S2 present Capillary refill < 3 seconds Clubbing of nail beds is absent JVD is absent Patient's skin is warm and dry. Pulses are all present. Respiratory: Airway is patent Trachea midline Respiratory effort is even, unlabored, Respiratory pattern is regular, symmetrical. GI: No deficits noted. No signs and/or symptoms were reported involving the gastrointestinal system. : No deficits noted. No signs and/or symptoms were reported regarding the genitourinary system. Derm: No signs and/or symptoms reported regarding the dermatologic system. Skin is intact, is fragile, Skin is dry, Skin is normal, Skin temperature is warm. Musculoskeletal: No signs and/or symptoms reported regarding the musculoskeletal system. Circulation, motion, and sensation intact. Range of motion: intact in all extremities. Historical: - Allergies: 04:56 Stadol; (cardiac arrest); jw7 04:56 Ciprofloxacin (DIZZINESS); jw7 04:56 Neurontin; jw7 04:56 butorphanol; jw7 04:56 Erythromycin; jw7 04:56 GABAPENTIN; jw7 04:56 Levaquin; jw7 04:56 TETRACYCLINES; jw7 - Home Meds: 04:56 tizanidine 4 mg Oral cap 1 cap 3 times per day [Active]; oxycodone 30 mg oral tablet 1 jw7 tab every 6 hours [Active]; hydrocortisone 2.5 % topical cream [Active]; loratadine 10 mg oral tablet [Active]; Vitamin C 500 mg Oral tablet daily [Active]; - PMHx: 04:56 Back pain; Arthritis; GERD; Osteoporosis; constipation; Venous Insufficiency; anorexia; jw7 Anemia; - Immunization history:: Adult Immunizations up to date, Client reports receiving the 2nd dose of the Covid vaccine, Pneumococcal vaccine is not up to date, Flu vaccine is not up to date. - Social history:: Smoking status: Patient denies any tobacco usage or history of. Screenin:03 [facility] ED Fall Risk Assessment (Adult) History of falling in the last 3 months, jw7 including since admission No falls in past 3 months (0 pts) Confusion or Disorientation No (0 pts) Intoxicated or Sedated No (0 pts) Impaired Gait Yes (1 pt) Mobility Assist Device Used Yes (1 pt) Altered Elimination No (0 pt) Score/Fall Risk Level 0 - 2 = Low Risk Oriented to surroundings, Maintained a safe environment. Abuse screen: Denies threats or abuse. Denies injuries from another. Nutritional screening: No deficits noted. Tuberculosis screening: No symptoms or risk factors identified. Assessment: 05:00 General: see triage assessment. jw7 05:32 General: contacted facility for transportation. per staff, transportation not available lg3 until after 0800 but will contact next of kin for transport.. 05:44 General: per facility, next of kin will be available for pharmacy picking tech around 0700. charge lg3 nurse notified. 05:50 Reassessment: Reassessment: Patient appears in no apparent distress at this time. No lg3 changes from previously documented assessment. Patient and/or family updated on plan of care and expected duration. Pain level reassessed. Patient is alert, oriented x 3, equal unlabored respirations, skin warm/dry/pink. Patient states feeling better. Patient states symptoms have improved. 06:11 General: Per facility, next of kin will not be able to pharmacy picking tech patient, but will jw7 contact EMS for transport. . 07:05 Reassessment: REPORT RECEIVED FOR PT. db 07:05 Reassessment: CALLED [facility] TO GET R[facility] FOR PT. [facility] STATES TRANSPORTATION WILL NOT db BE AVAILABLE FOR 1.5 HOURS. DAUGHTER IS UNABLE TO PICK PATIENT UP. 07:53 Reassessment: SPOKE TO PT DAUGHTERJAZMIN. SHE STATES [facility] WILL HAVE A WHEELCHAIR db VAN AFTER 8am TO PICK PATIENT UP. 07:53 Reassessment: PT WHEELED TO RESTROOM. db 08:06 Reassessment: Pt assisted to restroom via wheelchair, pt tolerated well. Warm blankets aa5 provided for comfort. Pt currently sitting in wheelchair, awaiting on transportation back to [facility], pt aware, call carroll within reach. . 08:52 Reassessment: PATIENT TRANSPORT ARRIVED. PT LEFT VIA WHEELCHAIR WITH [facility]. db Vital Signs: 04:53 BP 132 / 72; Pulse 97; Resp 14 S; Pulse Ox 100% on R/A; Weight 63.5 kg; Height 5 ft. 3 jw7 in. ; Pain 7/10; 05:00 BP 129 / 68; Pulse 92; Resp 22 S; Pulse Ox 100% on R/A; jw7 05:50 BP 126 / 78; Pulse 79; Resp 14; Pulse Ox 98% on R/A; lg3 04:53 Body Mass Index 24.80 (63.50 kg, 160.02 cm) jw7 04:53 Pain Scale: Adult jw7 ED Course: 04:38 Patient arrived in ED. lg3 04:42 Milan Schmidt MD is Attending Physician. ec2 04:48 Basic Metabolic Panel Sent. lg3 04:48 CBC with Diff Sent. lg3 04:48 Troponin HS Sent. lg3 04:53 Radha Ruth, RN is Primary Nurse. jw7 04:56 Triage completed. jw7 05:03 Maintain EMS IV. Dressing intact. Good blood return noted. Site clean \T\ dry. Gauge \T\ jw 7 site: 20g L AC. 05:03 Patient has correct armband on for positive identification. Bed in low position. Call jw7 light in reach. Side rails up X2. 05:07 Arm band placed on. jw7 05:08 XRAY Chest (1 view) In Process Unspecified. EDMS 05:30 Provided Education on: discharge instructions. jw7 05:51 No provider procedures requiring assistance completed. IV discontinued, intact, lg3 bleeding controlled, No redness/swelling at site. Pressure dressing applied. 07:28 Primary Nurse role handed off by Radha Ruth RN db 07:28 Kayla Sanchez, RN is Primary Nurse. db Administered Medications: 05:04 Drug: HYDROcodone-acetaminophen PO 5 mg-325 mg 1 tabs PO once Route: PO; lg3 05:38 Follow up: Response: No adverse reaction jw7 Medication: 05:52 VIS not applicable for this client. lg3 Outcome: 05:30 Discharge ordered by . ec2 05:51 Discharged to fdc. lg3 05:51 Condition: stable 05:51 Discharge instructions given to patient, Instructed on discharge instructions, follow up and referral plans. Demonstrated understanding of instructions, follow-up care, 05:52 Patient left the ED. lg3 08:53 Patient left the ED. db Signatures: Dispatcher [employer] EDME Yumiko Serrato RN RICO aa5 Meryl Garza RN RN lg3 Radha Ruth RN RN jw7 Kayla Sanchez, RICO GÓMEZ db Milan Schmidt MD MD ec2 Corrections: (The following items were deleted from the chart) 08:07 07:53 Reassessment: SPOKE TO PT DAUGHTER, JAZMIN. SHE STATES [facility] WILL HAVE A db WHEELCHAIR VAN AFTER 8PM TO PICK PATIENT UP db
--- NOTE | 2023-01-16 05:30 | EDPHYS ---
Physician Documentation [facility] Name: Arianne Ambriz Age: 77 yrs Sex: Female : 1945 Arrival Date: 01/16/2023 Time: 04:35 Bed 7 Private MD: ED Physician Milan Schmidt HPI: 01/16 04:44 This 77 yrs old Female presents to ER via Unassigned with complaints of chest ec2 pain, cough. 04:44 Patient arrives today due to concern for back and chest pain. Patient's primary ec2 complaint is back pain. States that she is chronically on oxycodone and is asking for pain medication for her back pain. Patient reports that she injured it several years back. Patient denies no new falls or traumas or injuries. Patient denies any red flag symptoms. Patient also reports that she has been experiencing some intermittent chest pain ongoing for weeks to months and states that she was here recently, external record review indicates that she was recently here this past month. Patient reports some vague chest discomfort that she is unable to provide additional history about. Patient states that she does have a frequent cough, states that she occasionally feels short of breath. . Historical: - Allergies: 04:56 Stadol; (cardiac arrest); jw7 04:56 Ciprofloxacin (DIZZINESS); jw7 04:56 Neurontin; jw7 04:56 butorphanol; jw7 04:56 Erythromycin; jw7 04:56 GABAPENTIN; jw7 04:56 Levaquin; jw7 04:56 TETRACYCLINES; jw7 - Home Meds: 04:56 tizanidine 4 mg Oral cap 1 cap 3 times per day [Active]; oxycodone 30 mg oral tablet 1 jw7 tab every 6 hours [Active]; hydrocortisone 2.5 % topical cream [Active]; loratadine 10 mg oral tablet [Active]; Vitamin C 500 mg Oral tablet daily [Active]; - PMHx: 04:56 Back pain; Arthritis; GERD; Osteoporosis; constipation; Venous Insufficiency; anorexia; jw7 Anemia; - Immunization history:: Adult Immunizations up to date, Client reports receiving the 2nd dose of the Covid vaccine, Pneumococcal vaccine is not up to date, Flu vaccine is not up to date. - Social history:: Smoking status: Patient denies any tobacco usage or history of. ROS: 04:44 Constitutional: chest pain, cough ec2 Exam: 04:44 Constitutional: GEN: NAD Head: atraumatic Eyes: EOMI Ears: External ears are ec2 normal. CV: regular rate, no lower extremity edema LUNGS: no respiratory distress, no wheezes, no rales, no rhonchi ABD: non-distended SKIN: no evidence of rashes MSK: no evidence of trauma NEURO: moves all extremities equally Vital Signs: 04:53 BP 132 / 72; Pulse 97; Resp 14 S; Pulse Ox 100% on R/A; Weight 63.5 kg; Height 5 ft. 3 jw7 in. ; Pain 7/10; 05:00 BP 129 / 68; Pulse 92; Resp 22 S; Pulse Ox 100% on R/A; jw7 05:50 BP 126 / 78; Pulse 79; Resp 14; Pulse Ox 98% on R/A; lg3 04:53 Body Mass Index 24.80 (63.50 kg, 160.02 cm) jw7 04:53 Pain Scale: Adult jw7 MDM: 04:42 Patient medically screened. ec2 04:44 ED course: Patient arrives today due to concern for chronic back pain along with cough ec2 with chest pain. Examination remarkable for well-appearing nontoxic dividual who is in no acute distress with reassuring vital signs. Will obtain a cardiac work-up, chest x-ray and treat the patient's symptoms with Kamuela. Considering ACS, low suspicion for PE or dissection, additionally considering patient's chronic pains. . 05:01 ED course: External record review performed by myself shows the patient was here less ec2 than 2 weeks ago also for her chronic back pain as well as complaints for nonspecific chest pain. Work-up showed a reassuring metabolic profile, reassuring CBC, troponin that is nonactionable. . 05:06 ED course: EKG independently reviewed and interpreted by me, shows normal sinus rhythm, ec2 rate of 85, no acute ST segment elevations, nonconcerning intervals.. 05:12 ED course: Chest x-ray independently reviewed and interpreted by me, shows no acute ec2 intrathoracic process.. 05:17 ED course: Patient's lab work is remarkable for reassuring metabolic profile without ec2 evidence of electrolyte or renal disturbances. CBC is remarkable for anemia with a hemoglobin of 8.0. Troponin is within normal ranges, similar to previous troponin 2 weeks ago. CBC when compared to most recent approximately 2 weeks ago, is similar, previously at 9.7. I do not feel she is having endorgan damage from her anemia. Patient can follow-up outpatient for this. Ultimately patient main complaint is her chronic back pain, I do not feel patient is having an emergent process from her chest discomfort. . 05:30 Data reviewed: vital signs. ec2 01/16 04:43 Order name: Basic Metabolic Panel; Complete Time: 05:15 ec2 01/16 04:43 Order name: CBC with Diff; Complete Time: 05:15 ec2 01/16 04:43 Order name: Troponin HS; Complete Time: 05:15 ec2 01/16 04:43 Order name: XRAY Chest (1 view) ec2 01/16 04:43 Order name: EKG; Complete Time: 04:44 ec2 01/16 04:43 Order name: Cardiac monitoring; Complete Time: 04:48 ec2 01/16 04:43 Order name: EKG - Nurse/Tech; Complete Time: 05:02 ec2 01/16 04:43 Order name: IV Saline Lock; Complete Time: 04:48 ec2 01/16 04:43 Order name: Labs collected and sent; Complete Time: 04:48 ec2 01/16 04:43 Order name: O2 Per Protocol; Complete Time: 04:48 ec2 01/16 04:43 Order name: O2 Sat Monitoring; Complete Time: 04:48 ec2 Administered Medications: 05:04 Drug: HYDROcodone-acetaminophen PO 5 mg-325 mg 1 tabs PO once Route: PO; lg3 05:38 Follow up: Response: No adverse reaction jw7 Disposition Summary: 01/16/23 05:30 Discharge Ordered Notes: Location: Home ec2 Condition: Stable ec2 Diagnosis - Low back pain ec2 - Chest pain, unspecified ec2 Discharge Instructions: - Discharge Summary Sheet ec2 - Chronic Back Pain ec2 Forms: - Medication Reconciliation Form ec2 - Thank You Letter ec2 - Antibiotic Education ec2 - Prescription Opioid Use ec2 - Patient Portal Instructions ec2 - Leadership Thank You Letter ec2 Signatures: Dispatcher [facility] Meryl Padilla RN RN lg3 Radha Ruth RN RN jw7 Milan Schmidt MD MD ec2 Corrections: (The following items were deleted from the chart) 05:00 04:44 ED course: Patient arrives today due to concern for cough along with chest pain. ec2 Examination remarkable for well-appearing nontoxic dividual who is in no acute distress with reassuring vital signs. Will obtain a cardiac work-up, chest x-ray and treat the patient's symptoms with Kamuela. Considering ACS, low suspicion for PE or dissection, additionally considering patient's chronic pains.. ec2 05:00 04:44 Patient arrives today due to concern for chest pain. Patient reports that she has ec2 been experiencing some intermittent chest pain ongoing for weeks to months and states that she was here recently, external record review indicates that she was recently here this past month. Patient reports some vague chest discomfort that she is unable to provide additional history about. Patient states that she does have a frequent cough, states that she occasionally feels short of breath. States that she also has chronic back pain that she has prescribed oxycodone for. External records indicate that she is receiving 30 mg of oxycodone 4 times a day. Patient is asking for oxycodone pain medication for her chronic pain.. ec2
[2023-01-16 06:00] VITALS: BP 126/78; O2SAT 98
--- NOTE | 2023-01-16 13:36 | EKG ---
Test Date: 2023-01-16 Test Time: 04:55:05 Narcotics And/Or Vice Detective: [place] MEASUREMENT RESULTS: Intervals: Rate: 85 IL: 164 QRSD: 76 QT: 352 QTc: 418 [place]: P: 50 IL: 164 QRS: -4 T: 18 INTERPRETIVE STATEMENTS: Normal sinus rhythm Minimal voltage criteria for LVH, may be normal variant Borderline ECG Compared to ECG 01/16/2023 04:54:28 No significant changes Electronically Signed On 01-16-23 13:35:31 CDT by Ranjeet Siddiqi
--- NOTE | 2023-01-16 13:36 | EKG ---
Test Date: 2023-01-16 Test Time: 04:54:28 Licensed Weigher: [place] MEASUREMENT RESULTS: Intervals: Rate: 85 VA: 162 QRSD: 76 QT: 356 QTc: 423 [place]: P: 48 VA: 162 QRS: -1 T: 19 INTERPRETIVE STATEMENTS: Normal sinus rhythm Minimal voltage criteria for LVH, may be normal variant Borderline ECG Compared to ECG 01/03/2023 22:28:52 Left ventricular hypertrophy now present Sinus tachycardia no longer present Electronically Signed On 01-16-23 13:35:33 CDT by Ranjeet Siddiqi
--- NOTE | 2023-01-16 14:31 | RAD REPORT ---
EXAM DESCRIPTION: RAD - Chest Single View - 01/16/2023 5:07 am CLINICAL HISTORY: The patient is 77 years old and is Female; CHEST PAIN TECHNIQUE: Frontal view of the chest. COMPARISON: No relevant prior studies available. FINDINGS: Lungs: Mildly prominent interstitial markings. No consolidation. Pleural space: Unremarkable. No pneumothorax. Heart: Unremarkable. Mediastinum: Unremarkable. Bones/joints: No acute findings. Upper abdomen: Elevation of the right hemidiaphragm. IMPRESSION: No acute findings in the chest. Electronically signed by: Rishabh Villa MD 01/16/2023 5:25 AM CDT Due to temporary technical issues with the PACS/Fluency reporting system, reports are being signed by the in house radiologists without review as a courtesy to insure prompt reporting. The interpreting radiologist is fully responsible for the content of the report.
== END 2023-01-16 08:53 | disposition home or self-care (01) ==
LOC: ER 04:35
DX: R07.89 Other chest pain (principal); M54.50 Low back pain, unspecified; Z88.1 Allergy status to other antibiotic agents; Z88.3 Allergy status to other anti-infective agents; Z88.5 Allergy status to narcotic agent; Z88.8 Allergy status to other drugs, medicaments and biological substances
CPT/HCPCS: 36415; 71045; 80048; 84484; 85025; 93005; 99284

== ENCOUNTER 2023-04-27 04:27 | Observation (INO) | payer OTHER, BC ==
[2023-04-27] MEDS ORDERED: NA CHLORIDE 0.9% 500 ML ONE (05:26)
[2023-04-27] MEDS ORDERED: NA CHLORIDE 0.9% 1,000 ML ONE (05:26)
[2023-04-27] MEDS ORDERED: MAGNES/ALUMIN/SIMET 30ML UCUP ONE (05:26)
[2023-04-27] MEDS ORDERED: PANTOPRAZOLE 40 MG INJ ONE (05:26)
[2023-04-27] MEDS ORDERED: LIDOCAINE VISCOUS 2% 10ML ORAL SOLN ONE (05:26)
[2023-04-27 05:37] LABS: Absolute Lymphocytes (CBC) 1.1 K/uL (0.7-4.9); Albumin 2.9 g/dL (3.4-5.0); Bilirubin Direct 0.1 mg/dL (0-0.2); Bilirubin Indirect, Calculated 0.3 mg/dL (0.2-0.8); Bilirubin Total 0.4 mg/dL (0.2-1.0); Hematocrit 30.4 % (36.0-45.0); Lymphocytes % 11.9 % (15.3-44.8); MCV 65.8 fL (80-100); MPV 8.8 fL (7.6-11.3); Magnesium 2.1 mg/dL (1.6-2.4); Platelets 273 thou/uL (152-406); Potassium 4.1 mEq/L (3.5-5.1); Protein, Total 7.4 g/dL (6.4-8.2); RBC Red Blood Cell Count 4.62 M/uL (3.86-4.86); Troponin High Sensitivity 8.8 pg/mL (<58.9)
--- NOTE | 2023-04-27 06:13 | EDPHYS ---
Physician Documentation [facility] Name: Arianne Ambriz Age: 77 yrs Sex: Female : 1945 Arrival Date: 04/27/2023 Time: 04:27 Bed 6 Private MD: Gonzalez Cunningham HPI: 04/27 04:39 This 77 yrs old Female presents to ER via EMS with complaints of chest pain kenisha and abd pain, vomiting. 04:39 The patient or guardian reports chest pain that is located primarily in the epigastric kenisha area, anterior chest wall. Onset: just prior to arrival. The patient presents with abdominal pain. Onset: The symptoms/episode began/occurred just prior to arrival, this morning. The patient presents to the emergency department with nausea, vomiting, abdominal pain, of the epigastric area. Onset: The symptoms/episode began/occurred this morning, today. Possible causes: unknown. The symptoms are aggravated by nothing. The symptoms are alleviated by nothing. The patient presents to the emergency department vomiting blood, a small amount. Abdominal pain: described as crampy. Historical: - Allergies: 04:38 Stadol; (cardiac arrest); lg3 04:38 Neurontin; lg3 04:38 Ciprofloxacin (DIZZINESS); lg3 04:38 butorphanol; lg3 04:38 Erythromycin; lg3 04:38 GABAPENTIN; lg3 04:38 Levaquin; lg3 04:38 TETRACYCLINES; lg3 - Home Meds: 04:38 hydrocortisone 2.5 % Topical cream [Active]; loratadine 10 mg Oral tablet [Active]; lg3 oxycodone 30 mg Oral tablet 1 tab every 6 hours [Active]; tizanidine 4 mg Oral cap 1 cap 3 times per day [Active]; Vitamin C 500 mg Oral tablet daily [Active]; Eliquis 5 mg Oral tab 1 tab 2 times per day [Active]; - PMHx: 04:38 Anemia; ANOREXIA; Arthritis; Back pain; William hip bursitis; Chronic pain; Complication of lg3 anesthesia; constipation; DVT; GERD; Hypertension; Osteoporosis; venous insufficiency; - PSHx: 04:38 Unable to Obtain; lg3 - Immunization history:: Adult Immunizations unknown. - Social history:: Smoking status: unknown. - Family history:: not pertinent. ROS: 04:39 Constitutional: Negative for fever, chills, and weight loss, Eyes: Negative for injury, kenisha pain, redness, and discharge, ENT: Negative for injury, pain, and discharge, Neck: Negative for injury, pain, and swelling, Cardiovascular: Negative for chest pain, palpitations, and edema, Respiratory: Negative for shortness of breath, cough, wheezing, and pleuritic chest pain, Back: Negative for injury and pain, : Negative for injury, bleeding, discharge, and swelling, MS/Extremity: Negative for injury and deformity, Skin: Negative for injury, rash, and discoloration, Neuro: Negative for headache, weakness, numbness, tingling, and seizure, Psych: Negative for depression, anxiety, suicide ideation, homicidal ideation, and hallucinations, Allergy/Immunology: Negative for hives, rash, and allergies, Endocrine: Negative for neck swelling, polydipsia, polyuria, polyphagia, and marked weight changes, Hematologic/Lymphatic: Negative for swollen nodes, abnormal bleeding, and unusual bruising, 04:39 Abdomen/GI: Positive for abdominal pain, nausea and vomiting, of the epigastric area, Exam: 04:39 Constitutional: This is a well developed, well nourished patient who is awake, alert, kenisha and in no acute distress. Head/Face: Normocephalic, atraumatic. Eyes: Pupils equal round and reactive to light, extra-ocular motions intact. Lids and lashes normal. Conjunctiva and sclera are non-icteric and not injected. Cornea within normal limits. Periorbital areas with no swelling, redness, or edema. ENT: Nares patent. No nasal discharge, no septal abnormalities noted. Tympanic membranes are normal and external auditory canals are clear. Oropharynx with no redness, swelling, or masses, exudates, or evidence of obstruction, uvula midline. Mucous membranes moist. Neck: Trachea midline, no thyromegaly or masses palpated, and no cervical lymphadenopathy. Supple, full range of motion without nuchal rigidity, or vertebral point tenderness. No Meningismus. Chest/axilla: Normal chest wall appearance and motion. Nontender with no deformity. No lesions are appreciated. Cardiovascular: Regular rate and rhythm with a normal S1 and S2. No gallops, murmurs, or rubs. Normal PMI, no JVD. No pulse deficits. Respiratory: Lungs have equal breath sounds bilaterally, clear to auscultation and percussion. No rales, rhonchi or wheezes noted. No increased work of breathing, no retractions or nasal flaring. Back: No spinal tenderness. No costovertebral tenderness. Full range of motion. Female : Normal external genitalia. Skin: Warm, dry with normal turgor. Normal color with no rashes, no lesions, and no evidence of cellulitis. MS/ Extremity: Pulses equal, no cyanosis. Neurovascular intact. Full, normal range of motion. Neuro: Awake and alert, GCS 15, oriented to person, place, time, and situation. Cranial nerves II-XII grossly intact. Motor strength 5/5 in all extremities. Sensory grossly intact. Cerebellar exam normal. Normal gait. Psych: Awake, alert, with orientation to person, place and time. Behavior, mood, and affect are within normal limits. 04:39 Abdomen/GI: Inspection: abdomen appears normal, Bowel sounds: normal, Palpation: mild abdominal tenderness, in the epigastric area, Liver: no appreciated palpable abnormalities, Hernia: not appreciated, 05:33 ECG was reviewed by the Attending Physician. kenisha Vital Signs: 04:31 BP 141 / 85; Pulse 88; Resp 17 S; Temp 98.7(TE); Pulse Ox 100% on R/A; Weight 57.15 kg lg3 (M); Height 5 ft. 5 in. (R); Pain 0/10; 07:52 BP 135 / 84; Pulse 86; Resp 18; Pulse Ox 97% on R/A; ph 04:31 Body Mass Index 20.97 (57.15 kg, 165.1 cm) lg3 04:31 Pain Scale: Adult lg3 MDM: 04:30 Patient medically screened. kenisha 04:44 Differential diagnosis: abnormal EKG, acute myocardial infarction, acute pericarditis, kenisha congestive heart failure Nonspecific abd pain, gastritis, pancreatitis, gastritis, gastroesophageal reflux disease (GERD), mitral valve prolapse, pneumonia, pneumothorax, pulmonary embolus, stable angina, thoracic aortic disection, bowel obstruction, diverticulitis, gastritis, GI Bleed, Mesenteric ischemia or infarction, non-specific abd pain, pancreatitis, Peptic Ulcer Disease, Ureterolithiasis, urinary tract infection. HEART Score: History: Slightly Suspicious (0), ECG: Non specific repolarization disturbance / LBTB / PM (1), Age: > or = 65 years (2), Risk Factors: 1 or 2 risk factors (1), [Hypertension] [+ Family HX] Troponin: < or = 1 x Normal Limit (0). The patient was not given aspirin in the Emergency Department. Not indicated due to patient's past medical history. Data reviewed: vital signs, nurses notes, lab test result(s), EKG, radiologic studies, CT scan. Consideration of Admission/Observation Patient was admitted/placed on observation. Escalation of care including admission/observation considered. I considered the following discharge prescriptions or medication management in the emergency department Medications were administered in the Emergency Department. See MAR. Test considered but Not performed: Ultrasound no abd usg. 04/27 04:37 Order name: Basic Metabolic Panel; Complete Time: 06:08 04/27 04:37 Order name: CBC with Diff 04/27 04:37 Order name: LFT's; Complete Time: 06:08 04/27 04:37 Order name: Magnesium; Complete Time: 06:08 04/27 04:37 Order name: NT PRO-BNP; Complete Time: 06:08 04/27 04:37 Order name: PT-INR 04/27 04:37 Order name: Troponin HS; Complete Time: 06:08 04/27 04:37 Order name: Lipase; Complete Time: 06:08 04/27 04:46 Order name: Type And Screen; Complete Time: 06:08 04/27 08:21 Order name: Hemoglobin EDMD 04/27 08:21 Order name: Hemoglobin EDMD 04/27 08:21 Order name: Hemoglobin [facility] 04/27 08:35 Order name: CBC Smear Scan [facility] 04/27 04:37 Order name: XRAY Chest (1 view) 04/27 04:46 Order name: US Extremity Venous W Compression William 04/27 04:37 Order name: EKG; Complete Time: 04:38 04/27 04:37 Order name: Cardiac monitoring; Complete Time: 05:32 04/27 04:37 Order name: EKG - Nurse/Tech; Complete Time: 05:32 04/27 04:37 Order name: IV Saline Lock; Complete Time: 05:20 04/27 04:37 Order name: Labs collected and sent; Complete Time: 05:20 04/27 04:37 Order name: O2 Per Protocol; Complete Time: 05:20 kenisha 04/27 04:37 Order name: O2 Sat Monitoring; Complete Time: 05:20 kenisha EC:33 Rate is 83 beats/min. Rhythm is regular. QRS [place] is Normal. ID interval is normal. QRS kenisha interval is normal. QT interval is normal. No Q waves. T waves are Normal. No ST changes noted. Clinical impression: NSR w/ Non-specific ST/T Changes and No evidence of ischemia. Interpreted by me. Reviewed by me. Administered Medications: 05:50 Drug: NS 0.9% IV 500 ml IV at bolus once Route: IV; Rate: bolus; Site: right wrist; la4 06:09 Follow up: IV Status: Completed infusion; IV Intake: 500ml la4 05:50 Drug: NS 0.9% IV 1000 ml IV at 75 ml/hr continuous Route: IV; Rate: 75 ml/hr; Site: la4 right wrist; 05:50 Drug: Pantoprazole IVP 40 mg IVP once Route: IVP; Site: right wrist; la4 06:08 Follow up: Response: No adverse reaction; No change in condition la4 05:50 Drug: GI Cocktail without - (Maalox PO 30 ml, Lidocaine Mucous Membrane 2 % 15 la4 ml) PO once Route: PO; 06:08 Follow up: Response: No adverse reaction; No change in condition la4 Disposition Summary: 04/27/23 06:13 Hospitalization Ordered Notes: Hospitalization Status: Observation kenisha Provider: Marietta Hoskins cha Location: Telemetry/MedSurg (observation) kenisha Condition: Fair kenisha Problem: new kenisha Symptoms: have improved kenisha Bed/Room Type: Standard kenisha Room Assignment: 229(04/27/23 08:44) eb Diagnosis - Chest pain, unspecified kenisha - Epigastric abdominal tenderness kenisha - Vomiting kenisha - Dementia in other diseases classified elsewhere without behavioral disturbance kenisha - Hematemesis 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 EDMS EDMS 07:15 04:47 Chest For PE Angio+CT.RAD.BRZ ordered. EDMS EDMS 07:15 04:47 Abdomen Pelvis W Con+CT.RAD.BRZ ordered. EDMS EDMS 08:44 06:13 kenisha eb
--- NOTE | 2023-04-27 06:13 | ER ---
Nurse's Notes [facility] Name: Arianne Ambriz Age: 77 yrs Sex: Female : 1945 Arrival Date: 04/27/2023 Time: 04:27 Bed 6 Private MD: Diagnosis: Chest pain, unspecified;Epigastric abdominal tenderness;Vomiting;Dementia in other diseases classified elsewhere without behavioral disturbance;Hematemesis;care home (current) use of anticoagulants Presentation: 04/27 04:31 Chief complaint: EMS states: Pt is a current resident of [facility] unit. EMS lg3 called out by pt for chest pain post vomiting X1. Pt poor historian with HX of dementia. Coronavirus screen: Client denies travel out of the [place] in the last 14 days. At this time, the client does not indicate any symptoms associated with coronavirus-19. Ebola Screen: No symptoms or risks identified at this time. Initial Sepsis Screen: Does the patient meet any 2 criteria? No. Patient's initial sepsis screen is negative. Does the patient have a suspected source of infection? No. Patient's initial sepsis screen is negative. Risk Assessment: Do you want to hurt yourself or someone else? Patient reports no desire to harm self or others. Onset of symptoms was April 27, 2023. 04:31 Method Of Arrival: EMS: [facility] lg3 04:31 Acuity: THDADEUS 3 lg3 Triage Assessment: 04:38 General: Appears in no apparent distress. comfortable, Behavior is calm, cooperative. lg3 Pain: Denies pain. EENT: No deficits noted. No signs and/or symptoms were reported regarding the EENT system. Neuro: Landa[place]de Agitation-Sedation Scale (RASS): 0 - Alert and Calm Level of Consciousness is awake, obeys commands, Oriented to person, place, time. Cardiovascular: No deficits noted. Denies chest pain, shortness of breath, Capillary refill < 3 seconds Clubbing of nail beds is absent JVD is absent Patient's skin is warm and dry. Respiratory: No deficits noted. Airway is patent Respiratory effort is even, unlabored, Respiratory pattern is regular, symmetrical. GI: No deficits noted. Abdomen is flat, non-distended. : No deficits noted. Derm: No deficits noted. No signs and/or symptoms reported regarding the dermatologic system. Skin is intact, is thin, Skin is dry, Skin is normal, Skin temperature is warm. Musculoskeletal: No deficits noted. No signs and/or symptoms reported regarding the musculoskeletal system. Circulation, motion, and sensation intact. Range of motion: intact in all extremities. Historical: - Allergies: 04:38 Stadol; (cardiac arrest); lg3 04:38 Neurontin; lg3 04:38 Ciprofloxacin (DIZZINESS); lg3 04:38 butorphanol; lg3 04:38 Erythromycin; lg3 04:38 GABAPENTIN; lg3 04:38 Levaquin; lg3 04:38 TETRACYCLINES; lg3 - Home Meds: 04:38 hydrocortisone 2.5 % Topical cream [Active]; loratadine 10 mg Oral tablet [Active]; lg3 oxycodone 30 mg Oral tablet 1 tab every 6 hours [Active]; tizanidine 4 mg Oral cap 1 cap 3 times per day [Active]; Vitamin C 500 mg Oral tablet daily [Active]; Eliquis 5 mg Oral tab 1 tab 2 times per day [Active]; - PMHx: 04:38 Anemia; ANOREXIA; Arthritis; Back pain; William hip bursitis; Chronic pain; Complication of lg3 anesthesia; constipation; DVT; GERD; Hypertension; Osteoporosis; venous insufficiency; - PSHx: 04:38 Unable to Obtain; lg3 - Immunization history:: Adult Immunizations unknown. - Social history:: Smoking status: unknown. - Family history:: not pertinent. Screenin:51 [facility] ED Fall Risk Assessment (Adult) History of falling in the last 3 months, ph including since admission No falls in past 3 months (0 pts) Confusion or Disorientation Yes (5 pts) Intoxicated or Sedated No (0 pts) Impaired Gait Yes (1 pt) Mobility Assist Device Used Yes (1 pt) Altered Elimination Yes (1 pt) Score/Fall Risk Level 3 or more points = High Risk Oriented to surroundings, Maintained a safe environment, Hourly rounding (assess needs \T\ fall precautionary measures) done, Used ambulatory aids as needed (educated on \T\ assisted with). Abuse screen: Denies threats or abuse. Denies injuries from another. Nutritional screening: No deficits noted. Tuberculosis screening: No symptoms or risk factors identified. Assessment: 07:51 Reassessment: Patient appears in no apparent distress at this time. Patient and/or ph family updated on plan of care and expected duration. Pain level reassessed. Pt oriented to person and place, denies pain or nausea at this time. Vital Signs: 04:31 BP 141 / 85; Pulse 88; Resp 17 S; Temp 98.7(TE); Pulse Ox 100% on R/A; Weight 57.15 kg lg3 (M); Height 5 ft. 5 in. (R); Pain 0/10; 07:52 BP 135 / 84; Pulse 86; Resp 18; Pulse Ox 97% on R/A; ph 04:31 Body Mass Index 20.97 (57.15 kg, 165.1 cm) lg3 04:31 Pain Scale: Adult lg3 ED Course: 04:29 Patient arrived in ED. rv1 04:30 Gonzalez Griffiths MD is Attending Physician. kenisha 04:38 Triage completed. lg3 04:38 Arm band placed on right wrist. lg3 05:19 US Extremity Venous W Compression William Sent. la4 05:20 Basic Metabolic Panel Sent. la4 05:20 CBC with Diff Sent. la4 05:20 LFT's Sent. la4 05:20 Magnesium Sent. la4 05:20 NT PRO-BNP Sent. la4 05:20 PT-INR Sent. la4 05:20 Troponin HS Sent. la4 05:20 Lipase Sent. la4 06:01 Gonzalez Larios, RN is Primary Nurse. la4 06:11 Marietta Hoskins MD is Hospitalizing Provider. kenisha 06:34 US Extremity Venous W Compression William In Process Unspecified. EDMS 06:47 XRAY Chest (1 view) In Process Unspecified. EDMS 07:20 Primary Nurse role handed off by Gonzalez Larios RN bp 07:20 Poli Sumner, [place] is Primary Nurse. bp 07:52 Patient has correct armband on for positive identification. Placed in gown. Bed in low ph position. Call light in reach. Side rails up X2. Pulse ox on. NIBP on. 07:52 No provider procedures requiring assistance completed. Patient admitted, IV remains in ph place. 08:14 Daughter Yanelis called/ her cell is [phone] call her with any questions comments eb and concerns. Administered Medications: 05:50 Drug: NS 0.9% IV 500 ml IV at bolus once Route: IV; Rate: bolus; Site: right wrist; la4 06:09 Follow up: IV Status: Completed infusion; IV Intake: 500ml la4 05:50 Drug: NS 0.9% IV 1000 ml IV at 75 ml/hr continuous Route: IV; Rate: 75 ml/hr; Site: la4 right wrist; 05:50 Drug: Pantoprazole IVP 40 mg IVP once Route: IVP; Site: right wrist; la4 06:08 Follow up: Response: No adverse reaction; No change in condition la4 05:50 Drug: GI Cocktail without - (Maalox PO 30 ml, Lidocaine Mucous Membrane 2 % 15 la4 ml) PO once Route: PO; 06:08 Follow up: Response: No adverse reaction; No change in condition la4 Medication: 07:52 VIS not applicable for this client. ph Intake: 06:09 IV: 500ml; Total: 500ml. la4 Outcome: 06:13 Decision to Hospitalize by Provider. kenisha 10:10 Patient left the ED. eb Signatures: Dispatcher [employer] EDMS Gonzalez Griffiths MD MD cha Hall, Patricia, RN RN Poli Schultz, RN RN Lena Cheek Lacie RN RN andrew3 Judie Trujillo 1 Gonzalez Larios RN RN la4 Corrections: (The following items were deleted from the chart) 04:44 04:38 Neuro: Landaverde Agitation-Sedation Scale (RASS): 0 - Alert and Calm Level of lg3 Consciousness is awake, obeys commands, Oriented to person, place, lg3
--- NOTE | 2023-04-27 07:05 | RAD REPORT ---
EXAM DESCRIPTION: RAD - Chest Single View - 04/27/2023 6:45 am CLINICAL HISTORY: CHEST PAIN COMPARISON: Chest Single View dated 01/16/2023; Chest Single View dated 01/03/2023; Chest Pa And Lat (2 Views) dated 06/04/2022; Chest Single View dated 11/23/2019 FINDINGS: Lines: None. Lungs: No evidence of edema or pneumonia. Pleural: No significant pleural effusions or pneumothorax. Cardiac: The heart size is within normal limits. Mediastinum: Hiatal hernia. Bones: No acute fractures. Soft tissue anchors in the right humeral head. Other: None IMPRESSION: No acute cardiopulmonary disease.
--- NOTE | 2023-04-27 07:06 | RAD REPORT ---
EXAM DESCRIPTION: US - Extrem Venous W Compress William - 04/27/2023 6:33 am CLINICAL HISTORY: Pain;Swelling COMPARISON: Extremity Venous Uni Ltd dated 09/15/2020 TECHNIQUE: Real-time sonographic evaluation of the lower extremity deep venous systems was performed using color Doppler, grayscale, and compression. FINDINGS: Bilateral lower extremities. Normal compressibility, flow augmentation, phasic flow and spontaneous flow is identified in both the left and right lower extremity deep venous systems. No intraluminal filling defects seen. IMPRESSION: No DVT in either lower extremity.
--- NOTE | 2023-04-27 08:17 | P.HP ---
Certification for Inpatient Patient admitted to: Observation <Ruthy Vasquez - Last Filed: 04/27/23 08:49> Patient History Date of Service: 04/27/23 Reason for admission: chest pain History of Present Illness: 77-year-old female with a past medical history anemia, GERD, arthritis, back pain, chronic pain, constipation, hypertension, osteoporosis, dementia presents to the emergency room via EMS with chest pain, nausea vomiting. Nursing staff reports patient is from the memory care unit, they did not notify with facility. patient is confused states that she lives at home with her . She reports epigastric pain, nausea vomiting x 1 this morning. HPI reports small amount of bleeding. HPI limited due to history of dementia. No reported active nausea vomiting, no reported hematemesis from nursing staff. Patient reports chest pain, likely secondary to nausea vomiting. Will admit for chest pain, abdominal pain, will trend troponin, H&H. Laboratory evaluation hemoglobin 9.5 hematocrit 30.4, no leukocytosis, early left shift 74.9 mild hyponatremia 135 troponin normal 8.8, lipase 13 normal will order KUB for abdominal pain, history of constipation. Patient unable to lie flat for CT PE protocol. - Past Medical/Surgical History Diabetic: No -: Hypertension -: Chronic Back Pain -: Arthritis -: Deep Vein Thrombosis -: Scoliosis -: Osteoporosis -: Carpal Tunner Syndrome -: Osteoarthritis -: Sleep Apnea -: Bilateral Hip Bursitis -: Right Knee Surgery -: Right Hand Surgery -: Carpal Tunnel Release -: Bilateral Shoulder Arthroscopy -: Bilateral Shoulder Surgery -: Joint Replacement -: Right Knee Arthroscopy - Family History Father -: Cancer Notes: Esophagus Mother -: Heart disease Notes: Heart Attack Brother -: Other (see notes) Notes: Dementia Sister -: Diabetes - Social History Alcohol use: No CD- Drugs: No Caffeine use: Yes <Ruthy Vasquez - Last Filed: 04/27/23 08:49> Date of Service: 04/28/23 <Marietta Hoskins - Last Filed: 04/28/23 13:36> Allergies butorphanol [From Stadol] Allergy (Verified 12/09/17 21:12) Shortness of breath gabapentin [From Neurontin] Allergy (Verified 12/09/17 21:12) Unknown Home Medications: Ascorbic Acid/Ascorbate Sodium [Vitamin C 500 mg Tablet Chew] 500 mg PO DAILY 04/27/23 Cholecalciferol (Vitamin D3) [Vitamin D3] 2,000 unit PO DAILY 04/27/23 Hydrocortisone Cream [Hydrocortisone 1% Cream*] 1 anita TOP BID 04/27/23 Loratadine [Alavert] 10 mg PO DAILY 04/27/23 Oxycodone HCl 30 mg PO Q6HP 04/27/23 Zinc Sulfate [Zinc Sulfate*] 220 mg PO DAILY 04/27/23 Review of Systems per HPI <Ruthy Vasquez - Last Filed: 04/27/23 08:49> Physical Examination - Physical Exam General: Alert, In no apparent distress, Oriented x3 HEENT: Atraumatic, Normocephalic Neck: Supple, 2+ carotid pulse no bruit Respiratory: Clear to auscultation bilaterally, Normal air movement Cardiovascular: Normal pulses, Regular rate/rhythm Capillary refill: <2 Seconds Gastrointestinal: Normal bowel sounds, Other (epigastric pain) Musculoskeletal: No clubbing, Other (Chronic back pain unable to lift) Neurological: Normal speech, Normal strength at 5/5 x4 extr Lymphatics: No axilla or inguinal lymphadenopathy - Studies Laboratory Data (last 24 hrs) 04/27/23 04/27/23 05:02 05:02 WBC 9.00 Hgb 9.5 L Hct 30.4 L Plt Count 273 Sodium 135 L Potassium 4.1 BUN 12 Creatinine 0.47 L Glucose 93 Magnesium 2.1 Total Bilirubin 0.4 AST 29 ALT 37 Alkaline Phosphatase 42 L Lipase 13 <Ruthy Vasquez - Last Filed: 04/27/23 08:49> Assessment and Plan - Plan Assessment plan Epigastric pain, Nausea vomiting Chest pain rule out NM Telemetry, trend troponins, trend H&H IV fluids, pantoprazole, Carafate p.o. 4 times daily, as needed analgesia presents to the emergency room via EMS with chest pain, nausea vomiting. Nursing staff reports patient is from the memory care unit, they did not notify which facility. No reported active nausea vomiting, no reported hematemesis from ED nursing staff. patient is confused states that she lives at home with her . She reports epigastric pain, nausea vomiting x 1 this morning. HPI reports small amount of bleeding. Will admit for chest pain, abdominal pain, will trend troponin, H&H. no leukocytosis, early left shift 74.9 troponin normal 8.8, lipase 13 KUB for abdominal pain, history of constipation. Patient unable to lie flat for CT PE protocol. EKG Rate is 83 beats/min. Rhythm is regular. QRS [place] is Normal. NH interval is normal. QRS interval is normal. QT interval is normal. No Q waves. T waves are Normal. No ST changes noted. Clinical impression: NSR w/ Non-specific ST/T Changes and No evidence of ischemia. History anemia Microcytic anemia Laboratory evaluation hemoglobin 9.5 hematocrit 30.4, Serial, trend H&H Mild hyponatremia mild hyponatremia 135 GERD PPI, Carafate, arthritis back pain chronic pain History constipation hypertension osteoporosis dementia Resume home meds Fall precaution Clear liquid diet meds as tolerated Full code DVT SCD Discharge Plan: [facility] - Advance Directives Does patient have a Living Will: No Does patient have a Durable POA for Healthcare: No - Code Status/Comfort Care Code Status: Full Code Critical Care: No Time Spent Managing Pts Care (In Minutes): 55 <Ruthy Vasquez - Last Filed: 04/27/23 08:49> Date of Service: 04/27/23 Chart was reviewed. Patient lives across the street at [facility]. She lives with her who actually walked across the street without telling anyone in the facility came looking for him at the hospital. I spoke to the nurse who was visiting with the patient and she stated that she has some complaints of some chest discomfort but it resolved before she left to come to the emergency room. The family had wanted her at least evaluated in the hospital. Will admit her for observation and if she is ruled out for acute coronary syndrome she can get further workup done as an outpatient as she is no longer having any chest pain. She feels well and she denies any complaints when I talked to her this evening. She does seem to have some mild dementia but she should be stable for discharge in the morning. <Marietta Hoskins - Last Filed: 04/28/23 13:36>
[2023-04-27] MEDS ORDERED: SODIUM CHLORIDE 0.9% 10ML INJ IV PRN (08:19)
[2023-04-27 08:34] LABS: Blood Morphology Comment NOTED (NOT SEEN); Ovalocytes 1+; Platelet Estimate ADEQ; White Blood Cell Scan OK (OK)
[2023-04-27] MEDS: PANTOPRAZOLE 40 MG INJ IVP SCH ×2 (09:00→20:23)
[2023-04-27 10:47] VITALS: BMI 26.2
[2023-04-27 12:16] VITALS: O2SAT 97
[2023-04-27] MEDS: OXYCODONE HCL 5 MG TAB PO SCH ×3 (12:36→23:42)
[2023-04-27] MEDS: SUCRALFATE 1GM/10ML UCUP FT SCH ×3 (12:39→20:23)
[2023-04-27 16:32] LABS: Specific Gravity 1.011 (1.005-1.030); Urine Bilirubin NEGATIVE (Negative); Urine Blood Negative (Negative); Urine Clarity Clear (Clear); Urine Color Light-Yellow (Yellow); Urine Glucose NEGATIVE (Negative); Urine Protein NEGATIVE (Negative); Urine Urobilinogen Normal (Normal); Urine pH 7.5 (5.0-7.0)
[2023-04-28] MEDS: OXYCODONE HCL 5 MG TAB PO SCH ×4 (04:58→23:04)
[2023-04-28] MEDS: SUCRALFATE 1GM/10ML UCUP FT SCH ×4 (08:52→20:43)
[2023-04-28] MEDS: PANTOPRAZOLE 40 MG INJ IVP SCH ×2 (08:52→20:43)
--- NOTE | 2023-04-28 16:12 | P.PN ---
Subjective Date of Service: 04/28/23 Chief Complaint: chest pain Pt is resting comfortably in a chair. She resports improvement of the chest pain. Troponin is negative x3. Pt denies any nausea or vomiting. No other complaints. Review of Systems Unremarkable General: Unremarkable Eyes: Unremarkable ENT: Unremarkable Respiratory: Unremarkable Cardiovascular: Unremarkable Gastrointestinal: Unremarkable Genitourinary: Unremarkable Musculoskeletal: Unremarkable Integumentary: Unremarkable Neurological: Unremarkable Lymphatics: Unremarkable Physical Examination - Vital Signs Temperature: 97.7 F Blood Pressure: 118/60 Pulse: 75 Respirations: 16 Pulse Ox (%): 98 - Physical Exam General: Alert, In no apparent distress, Oriented x3 HEENT: Atraumatic, Normocephalic, PERRLA Neck: Supple, 2+ carotid pulse no bruit Respiratory: Clear to auscultation bilaterally, Normal air movement Cardiovascular: No edema, Normal pulses, Regular rate/rhythm, Normal S1 S2 Gastrointestinal: Normal bowel sounds, Soft and benign, Non-distended Musculoskeletal: No clubbing, No swelling Integumentary: No rashes, No breakdown Neurological: Normal gait, Normal speech, Normal strength at 5/5 x4 extr Lymphatics: No axilla or inguinal lymphadenopathy Assessment And Plan - Plan Chest pain: Will r/o ACS. troponin is negative x3. Will continue SHELL therapy. Consulted Cardiology. Unable to lay flat for CTA chest to r/o PE. EKG shows NSR w/ Non-specific ST/T Changes and No evidence of ischemia. Epigastric pain, Nausea and vomiting: Lipase is 13. Will continue prn pain med, IVF, pantoprazole, Carafate p.o. 4 times daily. follow up KUB. History anemia: Hgb is 9.1. Will monitor H/H. transfuse when Hgb <7. Mild hyponatremia: Na is 135. Will continue IVF and monitor. GERD: Continue PPI, Carafate, arthritis/back pain/chronic pain: Continue prn pain med. History constipation: miralax. Hypertension: Continue home med Dementia: continue supportive care and fall precaution Code: Full code DVT ppx: SCD Dispo: [facility]. Waiting for Cardiology eval.
[2023-04-29] MEDS ORDERED: OXYCODONE HCL 5 MG TAB ONE ×2 (04:55→04:59)
[2023-04-29] MEDS: OXYCODONE HCL 5 MG TAB PO SCH ×2 (05:18→11:29)
[2023-04-29 06:38] LABS: Absolute Lymphocytes (CBC) 1.3 K/uL (0.7-4.9); Hematocrit 26.6 % (36.0-45.0); MCV 65.6 fL (80-100); MPV 8.3 fL (7.6-11.3); Platelets 250 thou/uL (152-406); RBC Red Blood Cell Count 4.05 M/uL (3.86-4.86)
[2023-04-29 06:57] LABS: Potassium 3.6 mEq/L (3.5-5.1)
[2023-04-29] MEDS ORDERED: POTASSIUM CL SA 10 MEQ TAB PO ONE (09:00)
[2023-04-29] MEDS: SUCRALFATE 1GM/10ML UCUP FT SCH ×2 (09:31→11:30)
[2023-04-29] MEDS: PANTOPRAZOLE 40 MG INJ IVP SCH (10:45)
--- NOTE | 2023-04-29 13:12 | P.DS ---
Admission Date: 04/27/23 Discharge Date: 04/29/23 Disposition: ROUTINE DISCHARGE Discharge Condition: GOOD Reason for Admission: chest pain Brief History of Present Illness: 77-year-old female with a past medical history anemia, GERD, arthritis, back pain, chronic pain, constipation, hypertension, osteoporosis, dementia presents to the emergency room via EMS with chest pain, nausea vomiting. Nursing staff reports patient is from the memory care unit, they did not notify with facility. patient is confused states that she lives at home with her . She reports epigastric pain, nausea vomiting x 1 this morning. HPI reports small amount of bleeding. HPI limited due to history of dementia. No reported active nausea vomiting, no reported hematemesis from nursing staff. Patient reports chest pain, likely secondary to nausea vomiting. Will admit for chest pain, abdominal pain, will trend troponin, H&H. Laboratory evaluation hemoglobin 9.5 hematocrit 30.4, no leukocytosis, early left shift 74.9 mild hyponatremia 135 troponin normal 8.8, lipase 13 normal will order KUB for abdominal pain, history of constipation. Patient unable to lie flat for CT PE protocol. Hospital Course: Pt is a 77yo female with a past medical history anemia, GERD, arthritis, back pain, chronic pain, constipation, hypertension, osteoporosis, and dementia who presented in the ER with chest pain, nausea, and vomiting. She presented from a memory care unit. The chest pain was located in the epigastrium and intermittent in nature. On admission, lab studies showed hemoglobin 9.5, hematocrit 30.4, no leukocytosis, early left shift 74.9 mild hyponatremia 135, troponin normal 8.8, lipase 13 (normal). We were unable to do CT chest to r/o PE because pt was unable to lay flat on her back. Troponin was negative x3 and EKG was unremarkable. We gave iv antiemetic and IVF. the symptoms resolved and pt requested to be discharged. She was in NAD prior to discharge. Vital Signs/Physical Exam: Temp Pulse Resp BP Pulse Ox 97.6 F 79 14 133/68 98 04/29/23 08:00 04/29/23 08:00 04/29/23 08:00 04/29/23 08:00 04/29/23 08:00 Laboratory Data at Discharge: WBC 5.70 thou/uL (4.3-10.9) 04/29/23 05:54 Hgb 8.5 g/dL (12.0-15.0) L 04/29/23 05:54 Hct 26.6 % (36.0-45.0) L 04/29/23 05:54 Plt Count 250 thou/uL (152-406) 04/29/23 05:54 PT Cancelled 04/27/23 05:02 INR Cancelled 04/27/23 05:02 Sodium 136 mEq/L (136-145) 04/29/23 05:54 Potassium 3.6 mEq/L (3.5-5.1) 04/29/23 05:54 BUN 9 mg/dL (7-18) 04/29/23 05:54 Creatinine 0.45 mg/dL (0.55-1.02) L 04/29/23 05:54 Glucose 90 mg/dL (74-106) 04/29/23 05:54 Magnesium 2.1 mg/dL (1.6-2.4) 04/27/23 05:02 Total Bilirubin 0.4 mg/dL (0.2-1.0) 04/27/23 05:02 AST 29 U/L (15-37) 04/27/23 05:02 ALT 37 U/L (13-56) 04/27/23 05:02 Alkaline Phosphatase 42 U/L (45-117) L 04/27/23 05:02 Lipase 13 U/L (13-75) 04/27/23 05:02 Home Medications: Ascorbic Acid/Ascorbate Sodium [Vitamin C 500 mg Tablet Chew] 500 mg PO DAILY 04/27/23 Cholecalciferol (Vitamin D3) [Vitamin D3] 2,000 unit PO DAILY 04/27/23 Hydrocortisone Cream [Hydrocortisone 1% Cream*] 1 anita TOP BID 04/27/23 Loratadine [Alavert] 10 mg PO DAILY 04/27/23 Oxycodone HCl 30 mg PO Q6HP 04/27/23 Zinc Sulfate [Zinc Sulfate*] 220 mg PO DAILY 04/27/23 Pantoprazole [Protonix Tab] 40 mg PO DAILY 60 Days #60 tab 04/29/23 New Medications: Pantoprazole [Protonix Tab] 40 mg PO DAILY 60 Days #60 tab Physician Discharge Instructions: Continue ad luis alberto activity. Take protonix 40mg po daily. Continue other home meds. Follow up with PCP within 1 week. Diet: AHA Activity: Ad luis alberto Followup: NONE,NONE [Primary Care Provider] -
[2023-04-29 13:30] VITALS: BP 111/53; TEMP 97.4
== END 2023-04-29 14:11 ==
LOC: ER 04:27 → ERHOLD 08:15 → 2ND 09:53
PROVIDERS: ADMIT Hospitalist; ATTEND Hospitalist
DX: R07.9 Chest pain, unspecified (principal); D64.9 Anemia, unspecified; K21.9 Gastro-esophageal reflux disease without esophagitis; M54.9 Dorsalgia, unspecified; G89.29 Other chronic pain; K59.00 Constipation, unspecified; I10 Essential (primary) hypertension; M81.0 Age-related osteoporosis without current pathological fracture; F03.90 Unspecified dementia, unspecified severity, without behavioral disturbance, psychotic disturbance, mood disturbance, and anxiety; R11.2 Nausea with vomiting, unspecified; E87.1 Hypo-osmolality and hyponatremia; M19.90 Unspecified osteoarthritis, unspecified site
CPT/HCPCS: 93005; 85025 ×2; 80048 ×2; 36415 ×2; 86900; 83735; 86850; 86901; 80076; 85018 ×2; 81003; 84484 ×3; 83690; 83880; 71045; 93970; C9113 ×5; J7040; J7030; G0378